=== PATIENT | female | born 1970 | race Caucasian/White ===

== ENCOUNTER 2018-06-28 15:01 | Emergency (ER) | payer MEDICAID, SELFPAY ==
[2018-06-28 15:02] VITALS: BP 169/109; PULSE 93; RESP 18; TEMP 36.6; O2SAT 98; BMI 39.2
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
[2018-06-28 15:27] LABS: Mucous, Urine 0 SEEN /hpf (<or=2+)
[2018-06-28 15:28] LABS: Color, Urine Yellow (Yellow); Glucose, Dipstick Normal (Normal); Ketone-Dipstick Negative (Negative); Leukocyte Esterase-Dipstick 500 /ul (Negative); Nitrite-Dipstick Positive (Negative); Occult Blood-Urine 250 /ul (Negative); Protein-Dipstick Negative (Negative); Urine Bilirubin Dipstick Negative (Negative); Urine Clarity Sl. Cloudy (Clear); Urine Urobilinogen Normal (Normal); Urine pH 6.5 (5.0 - 8.0)
[2018-06-28 15:34] LABS: Bacteria 2+ /hpf (None Seen); Red Blood Cells-Urine 10-25 SEEN /hpf (0-5); Squamous Epithelial Cells - UA 0-5 SEEN /hpf (5-10); White Blood Cells 0-5 SEEN /hpf (0-5)
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
[2018-06-28] MEDS: 0.9% Normal Saline 1,000 ML 1000 ML IV (15:41)
[2018-06-28 15:46] LABS: Absolute Neutrophil Count 8.5 X10^3/uL (2.0-7.7); Basophil# 0.03 X10^3/uL; Basophil% 0.2 % (0-1); Eosinophil# 0.26 X10^3/uL; Eosinophils% 2.1 % (0-5); Hematocrit 37.6 % (37-47); Hemoglobin 12.1 g/dl (12.0-15.0); Lymphocyte % 21.6 % (19-41); Mean Corp Hgb Conc 32.2 g/gl (32-36); Mean Corpuscular Volume 80.9 fL (81-99); Mean Platelet Vol. 9.9 fl (6.2-12.0); Monocyte# 0.99 X10^3/uL; Monocyte% 7.9 % (0-10); Neutrophil # 8.48 X10^3/uL (2.7-7.7); Neutrophil % 67.8 % (47-70); Platelet Count 328 K/mm3 (150-450); RBC Distribution Width CV 15.9 % (11.6-14.6); RBC Distribution Width SD 46.6 fl (35.1-43.9); Red Blood Count 4.65 M/mm3 (4.2-5.4); White Blood Count 12.5 K/mm3 (4.4-11.0)
[2018-06-28 15:47] LABS: POSITIVE COUNT NO; POSITIVE DIFFERENTIAL NO; POSITIVE MORPHOLOGY NO
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
[2018-06-28 16:02] LABS: Anion Gap 7 (5-15); BUN 16 mg/dL (7-18); BUN/Creat Ratio 21.9 RATIO (10-20); Calcium,Total 9.2 mg/dL (8.5-10.1); Chloride 105 mmol/L (98-107); Creatinine, Serum 0.73 mg/dL (0.55-1.02); EST Glomerular Filtration Rate 91 mL/min (>60); Est Glom Filt Rate - Afr Amer 110 mL/min (>60); Estimated Creatinine Clearance 124.81 ml/min; Glucose 108 mg/dL (74-106); Potassium 3.9 mmol/L (3.5-5.1); Sodium Level 138 mmol/L (136-145)
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
[2018-06-28 16:24] LABS: Internal QC Validated? YES +Cl - CLEAR BKGD; Pregnancy, Serum, hCG Quali. NEGATIVE Negative
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
[2018-06-28 17:13] LABS: Chlamydia Trachomatis by PCR Negative (Negative); Neisserai gonorrhoeae by PCR Negative (Negative); Probe Check PASS; Sample Adequacy Control PASS; Specimen Processing Control PASS
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
[2018-06-28 17:24] LABS: HIV - WCH Non-Reactive (Nonreactive)
[2018-06-28 17:34] VITALS: BP 157/84; PULSE 87; PULSE 88; RESP 16; O2SAT 98
[2018-06-28] MEDS: Ceftriaxone 500 MG Vial 250 MG IM (17:41)
[2018-06-28] MEDS: Azithromycin 250 MG Tablet 1000 MG PO (17:41)
[2018-06-28] MEDS: metroNIDAZOLE 500 MG Tablet 2000 MG PO (17:41)
== END 2018-06-28 17:50 | disposition home or self-care (01) ==
LOC: ED 15:26
PROVIDERS: Emergency Provider Emergency Medicine; Family Provider Family Medicine; PCP Family Medicine
DX: T74.21XA Adult sexual abuse, confirmed, initial encounter (principal); J45.909 Unspecified asthma, uncomplicated; E78.00 Pure hypercholesterolemia, unspecified; Z79.51 Long term (current) use of inhaled steroids; Z79.899 Other long term (current) drug therapy
CPT/HCPCS: 74177; 80048; 81001; 84703; 85025; 86703; 87491; 87591; 96361; 96365; 99284; J7030; Q9967; A4216

== ENCOUNTER 2018-07-18 11:23 | Emergency (ER) | payer MEDICAID, SELFPAY ==
[2018-07-18 11:24] VITALS: BP 141/91; PULSE 94; RESP 17; TEMP 36.6; O2SAT 98; BMI 41.4
[2018-07-18 11:26] VITALS: O2SAT 98
--- NOTE | 2018-07-18 11:46 | EKG12_ITS ---
Test Reason : SOB Blood Pressure : / mmHG Vent. Rate : 089 BPM Atrial Rate : 089 BPM P-R Int : 134 ms QRS Dur : 094 ms QT Int : 380 ms P-R-T Axes : 057 011 009 degrees QTc Int : 462 ms Normal sinus rhythm Possible Lateral infarct , age undetermined Inferior infarct , age undetermined Abnormal ECG Confirmed by AMBER HEDRICK, NIDA ([id number]), newspaper editor managing CYNDY PETERS ([id number]) on 07/21/2018 1:17:17 PM Referred By: PACO Confirmed By:NIDA CLARK MD
--- NOTE | 2018-07-18 11:46 | RAD_ITS ---
STUDY: X-RAY CHEST REASON FOR EXAM: Female, 48 years old. Shortness of breath. Cough. Chills. TECHNIQUE: PA and lateral views of the chest. COMPARISON: None. FINDINGS: EKG electrodes are seen. The lungs are clear and expanded. There is no demonstrated pleural abnormality. Normal size heart. Normal mediastinum and malcom. Normal visualized pulmonary arteries. Normal visualized aortic arch and descending thoracic aorta. Normal visualized thoracic spine. Normal visualized ribs, clavicles, and shoulders. There is no demonstrated abnormality of the visualized soft tissue structures of the upper abdomen. RAD/Chest PA and Lateral IMPRESSION: Normal x-ray examination of the chest. Electronically Signed: Thaddeus Jones, at 12:41 EDT , Service support ,
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
[2018-07-18 12:04] VITALS: PULSE 95; RESP 20; O2SAT 99
[2018-07-18] MEDS: Albuterol 2.5 MG/3 ML VIAL.NEB. INHALATION ×2 (12:04→13:13)
[2018-07-18] MEDS: 0.9% Normal Saline 1,000 ML 150 ML IV (12:06)
[2018-07-18] MEDS: MethylPREDNISolone 125 MG/2 ML Vial 80 MG IV (12:06)
[2018-07-18 12:27] LABS: Absolute Lymphocyte Count 3.52 X10^3/ul (0.83-4.51); Absolute Neutrophil Count 6.1 X10^3/uL (2.0-7.7); Basophil# 0.03 X10^3/uL; Basophil% 0.3 % (0-1); Eosinophil# 0.21 X10^3/uL; Hematocrit 36.1 % (37-47); Hemoglobin 11.3 g/dl (12.0-15.0); Lymphocyte # 3.52 X10^3/ul (4.0); Lymphocyte % 33.2 % (19-41); Mean Corp Hgb Conc 31.3 g/gl (32-36); Mean Corpuscular Hgb 25.5 pg (27.0-32.0); Mean Corpuscular Volume 81.3 fL (81-99); Mean Platelet Vol. 10.1 fl (6.2-12.0); Monocyte% 6.6 % (0-10); Neutrophil # 6.07 X10^3/uL (2.7-7.7); Neutrophil % 57.3 % (47-70); Platelet Count 289 K/mm3 (150-450); RBC Distribution Width CV 15.7 % (11.6-14.6); RBC Distribution Width SD 46.8 fl (35.1-43.9); Red Blood Count 4.44 M/mm3 (4.2-5.4); White Blood Count 10.6 K/mm3 (4.4-11.0)
[2018-07-18 12:32] LABS: Internal QC Validated? YES +Cl - CLEAR BKGD; Pregnancy, Serum, hCG Quali. NEGATIVE Negative
[2018-07-18 12:33] LABS: Anion Gap 8 (5-15); BUN 19 mg/dL (7-18); BUN/Creat Ratio 20.8 RATIO (10-20); Calcium,Total 8.3 mg/dL (8.5-10.1); Chloride 109 mmol/L (98-107); Creatinine, Serum 0.91 mg/dL (0.55-1.02); EST Glomerular Filtration Rate 71 mL/min (>60); Est Glom Filt Rate - Afr Amer 85 mL/min (>60); Estimated Creatinine Clearance 105.97 ml/min; Glucose 129 mg/dL (74-106); Potassium 3.2 mmol/L (3.5-5.1); Sodium Level 141 mmol/L (136-145)
[2018-07-18 12:34] LABS: POSITIVE COUNT NO; POSITIVE DIFFERENTIAL NO; POSITIVE MORPHOLOGY NO
[2018-07-18 13:15] VITALS: PULSE 100; RESP 16; O2SAT 100
[2018-07-18 13:24] VITALS: BP 111/79; PULSE 116; RESP 17; O2SAT 100
[2018-07-18 14:21] VITALS: BP 146/85; PULSE 111; RESP 20; O2SAT 99
== END 2018-07-18 14:22 | disposition home or self-care (01) ==
PROVIDERS: Emergency Provider Emergency Medicine; Family Provider Family Medicine; PCP Family Medicine
DX: J40 Bronchitis, not specified as acute or chronic (principal); R56.9 Unspecified convulsions; F41.9 Anxiety disorder, unspecified; F32.9 Major depressive disorder, single episode, unspecified; Z79.51 Long term (current) use of inhaled steroids; Z79.899 Other long term (current) drug therapy
CPT/HCPCS: 71046; 80048; 84703; 85025; 93005; 94640; 96361; 96374; 99285; A4216

== ENCOUNTER 2022-05-25 15:52 | Emergency (ER) | payer MEDICAID, SELFPAY ==
[2022-05-25 15:54] VITALS: BP 152/86; PULSE 81; RESP 23; TEMP 36.7; O2SAT 98; BMI 40.2
--- NOTE | 2022-05-25 16:39 | EDS_ITS ---
HPI History of Present Illness Chief Complaint: Chest Pain Informant: patient Onset/Context/Timing Onset: Today Activity at onset: sudden Timing: Continuous Quality: Positive for Sharp Location: Substernal Worsened By: Nothing Relieved By: Nothing Associated Symptoms: Positive for Dyspnea, Cough and Palpitations; Negative for Nausea, Vomiting, Diaphoresis, Fever, Lightheadedness or Acid Reflux Narrative Narrative: Patient presents with chest pain that began today. Patient states the pain began rather suddenly. Patient states it has been constant. Patient states it is over the substernal area. Patient describes the pain as stabbing. Patient states nothing makes it better nothing makes it worse. Patient does admit to a cough and some shortness of breath. Patient also admits to some palpitations. Patient denies any diaphoresis. Patient denies any nausea or vomiting. Patient denies any lightheadedness or dizziness. Patient denies any fevers or chills. CVD Risk Factors: Positive for Hypertension, Diabetes, Hypercholesterolemia and Family History 1' </=55; Negative for Smoking PE Risk Factors: Negative for Recent Travel/Surgery, Recent Immobilization, Prior DVT or PE or Cancer [facility] Medical History (Updated 05/25/22 @ 18:[address] Rob Perdomo, DO) Asthma Diabetes Hypertension Home Medications fluticasone propionate 50 mcg/actuation nasal spray,suspension 1 spray DAILY allergies 06/28/18 [History Last Taken 07/17/18] simvastatin 20 mg tablet 20 mg PO QHS cholesterol 06/28/18 [History Last Taken 07/17/18] albuterol sulfate 90 mcg/actuation aerosol inhaler (Proventil HFA) 2 puff inhalation Q4H PRN PRN Sob &/Or Wheezing 07/18/18 [History Last Taken 07/18/18] azithromycin 250 mg tablet 250 mg PO DAILY ##4 07/18/18 [Rx Last Taken Unknown] xxlhsddeydmziyg-yygzckhjxdkdbmw-VS 2 mg-30 mg-10 mg/5 mL oral syrup (Bromfed DM) 10 ml PO Q4H PRN PRN Cough 07/18/18 [History Last Taken 07/17/18] fluoxetine 20 mg capsule 20 mg PO DAILY depression 07/18/18 [History Last Taken 07/17/18] prednisone 20 mg tablet (Deltasone) 40 mg PO DAILY #10 tabs 07/18/18 [Rx Last Taken Unknown] metformin 500 mg tablet 500 mg PO BID #20 tabs 05/25/22 [Rx Last Taken Unknown] Allergy/AdvReac Type Severity Reaction Status Date / Time Penicillins AdvReac Vomiting Verified 05/25/22 15:57 Surgical History (Updated 05/25/22 @ 16:[address] Rob Perdomo, DO) Hx of breast surgery Hx of tubal ligation Social History Smoking Status: Never smoker ROS ROS ED Constitutional Constitutional ED: Denies chills or fever(s) Eyes Eyes: Denies blurry vision or change in vision ENT ENT ED: Denies rhinorrhea or sore throat Cardiovascular Cardiovascular: Reports chest pain and palpitations Respiratory/Chest Respiratory/Chest: Reports dyspnea; Denies cough Gastrointestinal Gastrointestinal: Denies abdominal pain, nausea or vomiting Genitourinary Genitourinary ED: Denies dysuria or hematuria Musculoskeletal Musculoskeletal: Reports back pain; Denies neck pain Integumentary Denies abscess or rash Neurologic Neurologic: Denies headache(s) or weakness Allergic/Immunologic Allergic/Immunologic ED: Denies mouth swelling or urticaria EXAM Physical Exam Const Vital Signs: 05/25/22 15:54 05/25/22 15:57 05/25/22 16:52 Temperature 98.1 F Temperature Source Oral Pulse Rate 81 Respiratory Rate 23 H Respiratory Effort Normal Short of Breath Blood Pressure 152/86 H Blood Pressure Mean 108 Pulse Ox 98 Oxygen Delivery Method Room Air Room Air 05/25/22 18:09 Temperature Temperature Source Pulse Rate 86 Respiratory Rate 24 H Respiratory Effort Blood Pressure 144/85 H Blood Pressure Mean 104 Pulse Ox 99 Oxygen Delivery Method Room Air Positive well nourished, well developed and obese General Appearance ED: well developed and NAD Nutritional Appearance: obese HEENT normocephalic and atraumatic Eyes PERRL and EOMs intact bilaterally Neck supple and no JVD Chest Wall Chest: tenderness sternum Resp normal respiratory effort and clear to auscultation bilaterally Effort and Inspection: Negative for respiratory distress Cardio regular rate, regular rhythm and no murmurs GI normal to inspection, nondistended, normoactive bowel sounds, soft to palpation, non-tender and non-distended Extremity normal to inspection General Extremety ED: Negative for edema or tenderness General Extremity: Negative for edema Neuro oriented x3, CN's II-XII intact bilaterally and no sensory deficits noted Sensorium / Orientation: awake and alert Motor Exam: strength 5/5 throughout Psych mental status grossly normal Heart Score History: Slightly/Non-Suspicious ECG: Nonspecific Repolarization Age: >45 - <65 years Risk Factors: >/= 3 Risk Factors or History of CAD Troponin: </= Normal Limit Score: 4 MDM MDM MDM Narrative Medical decision making narrative: Differential diagnosis includes cardiac ischemia, cardiac dysrhythmia, pneumonia, pneumothorax, electrolyte abnormality, musculoskeletal pain, and anxiety. EKG will be obtained to assess for cardiac dysrhythmia and cardiac ischemia. Chest x-ray will be obtained to assess for pneumonia and pneumothorax. CBC will be obtained to assess for anemia and leukocytosis. Basic metabolic profile will be obtained to assess for electrolyte abnormality and renal function. High-sensitivity troponin will be obtained to assess for cardiac ischemia. Patient has a Wells score of 0. I do not think this is from a pulmonary embolism. Lab Data Attestation: I reviewed the patient's lab results. Lab results narrative: CBC was reviewed. There is a mild anemia with a hemoglobin of 9.2 hematocrit 31.4. Basic metabolic profile was reviewed. There is a mild hypokalemia of 3.2. Glucose was 137. High-sensitivity troponin was reviewed and was normal at 5. Labs: Laboratory Results - last 24 hr 05/25/22 05/25/22 16:00 16:00 WBC 10.8 RBC 4.39 Hgb 9.2 L Hct 31.4 L MCV 71.5 L MCH 21.0 L MCHC 29.3 L RDW Std Deviation 48.7 H RDW Coeff of Yohannes 19.2 H Plt Count 329 MPV 10.2 Immature Gran % (Auto) 0.400 Neut % (Auto) 64.5 Lymph % (Auto) 25.5 Pacific % (Auto) 8.1 Eos % (Auto) 1.0 Baso % (Auto) 0.5 Absolute Neuts (auto) 7.0 Absolute Lymphs (auto) 2.75 Nucleated RBC % 0 Sodium 139 Potassium 3.2 L Chloride 106 Carbon Dioxide 28.0 Anion Gap 5 BUN 13 Creatinine 0.87 Estim Creat Clear Calc 104.59 Est GFR (MDRD) Af Amer 89 Est GFR (MDRD) Non-Af 73 BUN/Creatinine Ratio 14.9 Glucose 137 H Calcium 9.0 Troponin I High Sens 5 Radiography Chest X-Ray - ED: 1 View, Read by ED Physician, Read by Radiologist and No Acute Disease Diagnostic Testing: Clinical Impression(s) from Imaging Studies Chest X-Ray 05/25/22 16:50 IMPRESSION: No radiographic evidence of acute cardiopulmonary disease. Electronically Signed: Stu Goldstein at 17:20 EDT Reading Location ID and State: [facility] / [place] Tel [phone], Service support , Portable 1 view chest x-ray was obtained. On my independent interpretation, lung reza are clear. There is normal cardiac silhouette. Bony thorax is normal. There is no acute process noted. Radiologist also interpreted the x- ray and agrees. EKG Initial EKG: Attestation: I personally reviewed and interpreted this EKG as follows: Interpretation: Sinus Rhythm (79) and Non-Specific ST Changes Comments: EKG was obtained. On my independent interpretation, it showed a normal sinus rhythm with a rate of 79. SC interval, QRS interval, and QTc intervals were all normal. [place] was normal. There are nonspecific ST-T wave changes. Prior EKG tracings: available for review Prior: Unchanged (07/18/2018) Treatment and Re-Evaluation :: Patient was given aspirin. Patient was given a dose of potassium here. Patient was advised of her findings. Patient was given prescription for metformin. Patient was instructed to follow-up with a primary care physician in 5 to 7 days for further evaluation. Patient understands and is agreeable with the plan. All questions were answered. Discharge Plan Triage Chief Complaint: Chest Pain ED Provider: Rob Perdomo Dx/Rx/DC Orders Clinical Impression: Chest pain, Diabetes mellitus, Morbid obesity with BMI of 40.0-44.9, adult Instructions: ED Chest Pain, Uncertain Cause Prescriptions: New metformin 500 mg tablet 500 mg PO BID Qty: 20 0RF No Action simvastatin 20 tablet 20 mg PO QHS fluticasone propionate 1 SPRAY spray,suspension 1 spray NASAL DAILY albuterol sulfate [Proventil HFA] 6.7 GM HFA aerosol inhaler 2 puff inhalation Q4H PRN PRN (Reason: Sob &/Or Wheezing) usdnkeiishoxcuj-rmmqieuid-HJ [Bromfed DM] 118 ML syrup 10 ml PO Q4H PRN PRN (Reason: Cough) fluoxetine 20 MG capsule 20 mg PO DAILY Label Comments: TAKE 1 CAPSULE BY MOUTH DAILY azithromycin 250 MG tablet 250 mg PO DAILY Qty: 4 0RF prednisone [Deltasone] 20 MG tablet 40 mg PO DAILY Qty: 10 0RF Rx Instructions: With food Stand Alone Forms: Work / School Excuse Primary Care Provider: Care Physician,No Primary Referrals: Malgorzata Oconnor [Non-Staff] - 5-7 Days Care Physician,No Primary [Primary Care Provider] - Disposition Disposition: Home, Self Care
--- NOTE | 2022-05-25 16:46 | EKG12_ITS ---
Test Reason : CP Blood Pressure : / mmHG Vent. Rate : 079 BPM Atrial Rate : 079 BPM P-R Int : 116 ms QRS Dur : 086 ms QT Int : 372 ms P-R-T Axes : 040 -13 003 degrees QTc Int : 426 ms Normal sinus rhythm Minimal voltage criteria for LVH, may be normal variant ( R in aVL ) Inferior infarct , age undetermined Confirmed by LEONIDAS HEDRICK, ALEC ([id number]), state editor CYNDY PETERS ([id number]) on 05/27/2022 9:54:31 AM Referred By: MAXINE Confirmed By:ALEC LAUREN MD
--- NOTE | 2022-05-25 16:50 | RAD_ITS ---
INDICATION: chest pain EXAMINATION/TECHNIQUE: X-RAY - XR Chest 1 View COMPARISON: None. FINDINGS: LINES/DEVICES: None. LUNGS: No consolidation, edema or effusion. No pneumothorax. MEDIASTINUM AND CARDIOVASCULAR STRUCTURES: Cardiac silhouette not enlarged. Central airways and mediastinal contour are unremarkable. BONES AND SOFT TISSUES: Unremarkable. RAD/Chest 1 View (Portable) IMPRESSION: No radiographic evidence of acute cardiopulmonary disease. Electronically Signed: Stu Goldstein DO at 17:20 EDT ,
[2022-05-25 16:56] LABS: Absolute Lymphocyte Count 2.75 X10^3/uL (0.83-4.51); Basophil# 0.05 X10^3/uL; Basophil% 0.5 % (0-1); Eosinophil# 0.11 X10^3/uL; Hematocrit 31.4 % (37-47); Hemoglobin 9.2 g/dL (12.0-15.0); Lymphocyte # 2.75 X10^3/ul (0.83-4.51); Lymphocyte % 25.5 % (19-41); Mean Corp Hgb Conc 29.3 g/dL (32-36); Mean Corpuscular Volume 71.5 fL (81-99); Mean Platelet Vol. 10.2 fl (6.2-12.0); Monocyte# 0.88 X10^3/uL; Monocyte% 8.1 % (0-10); NRBC Flagged by Analyzer 0 % (0-5); Neutrophil # 6.97 X10^3/uL (2.7-7.7); Neutrophil % 64.5 % (47-70); Platelet Count 329 K/mm3 (150-450); RBC Distribution Width CV 19.2 % (11.6-14.6); RBC Distribution Width SD 48.7 fl (35.1-43.9); Red Blood Count 4.39 M/mm3 (4.2-5.4); White Blood Count 10.8 K/mm3 (4.4-11.0)
[2022-05-25] MEDS: Aspirin 81 MG TAB.CHEW 324 MG PO (16:56)
[2022-05-25 17:17] LABS: Anion Gap 5 (5-15); BUN 13 mg/dL (7-18); BUN/Creat Ratio 14.9 RATIO (10-20); Chloride 106 mmol/L (98-107); Creatinine, Serum 0.87 mg/dL (0.55-1.02); EST Glomerular Filtration Rate 73 mL/min (>60); Est Glom Filt Rate - Afr Amer 89 mL/min (>60); Estimated Creatinine Clearance 104.59 ml/min; Glucose 137 mg/dL (74-106); Potassium 3.2 mmol/L (3.5-5.1); Sodium Level 139 mmol/L (136-145); Troponin-I HS 5 pg/mL (3.0-54.0)
[2022-05-25 18:09] VITALS: BP 144/85; PULSE 86; RESP 24; O2SAT 99
[2022-05-25 18:45] VITALS: BP 135/85; PULSE 78; RESP 25; O2SAT 99
[2022-05-25] MEDS: Potassium Chloride Oral Tablet 20 MEQ 40 MEQ PO (18:46)
[2022-05-25 19:12] VITALS: BP 117/84; PULSE 76; RESP 22; O2SAT 99
== END 2022-05-25 19:13 | disposition home or self-care (01) ==
PROVIDERS: Emergency Provider Emergency Medicine; Visit Provider Emergency Medicine
DX: R07.9 Chest pain, unspecified (principal); E66.01 Morbid (severe) obesity due to excess calories; Z68.41 Body mass index [BMI] 40.0-44.9, adult; E11.9 Type 2 diabetes mellitus without complications; R00.2 Palpitations; I10 Essential (primary) hypertension; R06.02 Shortness of breath; Z79.84 Long term (current) use of oral hypoglycemic drugs
CPT/HCPCS: 71045; 80048; 84484; 85025; 93005; 99285; A4216

== ENCOUNTER 2022-07-06 12:18 | Emergency (ER) | payer MEDICAID, SELFPAY ==
[2022-07-06 12:18] VITALS: BP 154/90; PULSE 91; RESP 16; TEMP 35.7; O2SAT 99; BMI 37.0
--- NOTE | 2022-07-06 13:05 | CM.ED ---
Social Work Note Referral Source: case find Referral Reason: no PCP SW met with patient and introduced herself and role as [facility] [employer]. Patient lying on hospital bed and agreeable to speak with SW. SW inquired about patient's insurance and current PCP. Patient verified insurance and reports no current PCP. SW provided patient with a list of local PCPs in network with patient's insurance and accepting new patients as well as Where and When to go, focusing on nurse and transportation lines related to patient's insurance. Patient was receptive towards list and voiced no other needs. SW remains available if needs arise. Nilsa Li PERMIT SPECIALIST, [place]
--- NOTE | 2022-07-06 13:27 | CT_ITS ---
STUDY: CT BRAIN WITHOUT CONTRAST REASON FOR EXAM: Female, 52 years old. Headaches and dizziness following a recent head injury. RADIATION DOSAGE (If Supplied By Facility): CTDIvol = ( 44.99 ) mGy, DLP = ( 745.49 ) mGycm TECHNIQUE: Transaxial CT imaging of the brain was performed without administration of intravenous contrast material. Individualized dose optimization techniques were used for this CT. COMPARISON: No relevant priors. FINDINGS: Normal soft tissue structures. There is hyperostosis frontalis internus. Normal size ventricles and extra-axial spaces for the patient''s age. Normal white matter tracts of the cerebral hemispheres. Normal basal ganglia and thalami. Normal brainstem. Normal cerebellum. There is no intracranial hemorrhage. There are no findings of an acute ischemic infarction. Normal visualized paranasal sinuses. CT/Brain/Head without Contrast IMPRESSION: Normal unenhanced CT scan of the brain. Electronically Signed: Thaddeus Jones MD at 14:00 EDT ,
[2022-07-06 14:18] VITALS: RESP 16
--- NOTE | 2022-07-06 15:36 | ED.RN ---
PT STATES WHEN WILL THE DOCTOR BE BACK IN? I HAVE A BUS I NEED TO CATCH. THIS RN MAKES DR. KIMBLE AWARE THAT PT WANTING TO LEAVE. DR. KIMBLE STATES THAT SHE IS ON HIS LIST TO RE-EVALUATE. THIS RN INFORMS PT THAT DR WILL BE IN SOON TO RE-EVALUATE HER AND HE IS AWARE THAT SHE NEEDS TO CATCH A BUS HOME. THIS RN EXPLAINS THAT UNFORTUNATELY THE ER IS BUSY TODAY AND IT IS TAKING A LITTLE BIT LONGER THAN USUAL. PT STATES MY BUS WILL BE HERE IN THE NEXT 5 MINUTES AND IT IS THE LAST ONE. I WOULD LIKE TO LEAVE NOW. THIS RN STATES IF YOU WOULD LIKE TO LEAVE, I CANNOT FORCE YOU TO STAY HERE. YOU ARE MORE THAN WELCOME TO GO IF YOU HAVE TO. PT PROCEEDS TO LEAVE AT THIS TIME WITHOUT DC ORDER OR INSTRUCTIONS
--- NOTE | 2022-07-06 15:49 | EX.ED.VIS.HA ---
HPI History of Present Illness Chief Complaint: Headache Onset/Context/Timing Onset: Weeks (1) Context: Sudden Timing: Continuous Quality -Headache: Positive for Throbbing Location: Right frontal scalp Worsened by: Nothing Relieved by: Nothing Associated Symptoms/Injury Associated Symptoms: Negative for Fever, Nausea, Vomiting, Sore Throat, Sinus Pressure, Numbness, Tingling, Preceding Aura, Visual Changes, Blurred Vision, Photophobia or Visual Loss Injury - ARANDA: Positive for Direct Trauma Narrative Narrative: Patient presents with a headache that has been constant for the past week. Patient states the pain is over the right frontal area. Patient describes it as throbbing. Patient states nothing makes it worse and nothing makes it better. Patient states she fell 1 week ago. Patient hit the right frontal area of her head when she fell. Patient denies any loss of consciousness. Patient denies any nausea or vomiting. Patient denies any visual changes. Patient does admit to some pain that goes into her neck but also states she has chronic pain in her neck and back. [facility] Medical History Asthma Diabetes Hypertension Home Medications fluticasone propionate 50 mcg/actuation nasal spray,suspension 1 spray DAILY allergies 06/28/18 [History Last Taken 07/17/18] simvastatin 20 mg tablet 20 mg PO QHS cholesterol 06/28/18 [History Last Taken 07/17/18] albuterol sulfate 90 mcg/actuation aerosol inhaler (Proventil HFA) 2 puff inhalation Q4H PRN PRN Sob &/Or Wheezing 07/18/18 [History Last Taken 07/18/18] azithromycin 250 mg tablet 250 mg PO DAILY ##4 07/18/18 [Rx Last Taken Unknown] ivqeallxogimtoq-hcsbasebxnwylbt-DV 2 mg-30 mg-10 mg/5 mL oral syrup (Bromfed DM) 10 ml PO Q4H PRN PRN Cough 07/18/18 [History Last Taken 07/17/18] fluoxetine 20 mg capsule 20 mg PO DAILY depression 07/18/18 [History Last Taken 07/17/18] prednisone 20 mg tablet (Deltasone) 40 mg PO DAILY #10 tabs 07/18/18 [Rx Last Taken Unknown] metformin 500 mg tablet 500 mg PO BID #20 tabs 05/25/22 [Rx Last Taken Unknown] Allergy/AdvReac Type Severity Reaction Status Date / Time Penicillins AdvReac Vomiting Verified 07/06/22 12:20 Surgical History Hx of breast surgery Hx of tubal ligation Social History Smoking Status: Never smoker ROS ROS ED Constitutional Constitutional ED: Denies chills or fever(s) Eyes Eyes: Denies blurry vision or change in vision ENT ENT ED: Denies rhinorrhea or sore throat Cardiovascular Cardiovascular: Denies chest pain or palpitations Respiratory/Chest Respiratory/Chest: Reports cough; Denies dyspnea Gastrointestinal Gastrointestinal: Denies nausea or vomiting Genitourinary Genitourinary ED: Denies dysuria or hematuria Musculoskeletal Musculoskeletal: Reports back pain and neck pain Integumentary Denies abscess or rash Neurologic Neurologic: Reports headache(s); Denies weakness Allergic/Immunologic Allergic/Immunologic ED: Denies mouth swelling or urticaria EXAM Physical Exam Const Vital Signs: 07/06/22 12:18 07/06/22 12:39 07/06/22 14:18 Temperature 96.3 F L Temperature Source Temporal Pulse Rate 91 Respiratory Rate 16 16 Respiratory Effort Normal Non-Labored Respiratory Pattern Normal Blood Pressure 154/90 H Blood Pressure Mean 111 Pulse Ox 99 Oxygen Delivery Method Room Air Positive well nourished and well developed General Appearance ED: well developed HEENT Reports moist mucous membranes HEENT Narrative: There is tenderness over the right frontal scalp. There is no bony crepitance or step-off. There is no edema or ecchymosis. There is no hematoma noted. tenderness Neck supple and no JVD Resp normal respiratory effort and clear to auscultation bilaterally Cardio regular rate and regular rhythm GI normal to inspection, nondistended, normoactive bowel sounds and non-tender Palpation: soft Extremity normal to inspection General Extremety ED: Negative for edema or tenderness General Extremity: Negative for edema Neuro oriented x3, CN's II-XII intact bilaterally and no sensory deficits noted Sensorium / Orientation: alert Motor Exam: strength 5/5 throughout Psych mental status grossly normal Skin no rashes or lesions noted MDM MDM MDM Narrative Medical decision making narrative: Differential diagnosis includes concussion, closed head injury, and intracranial bleeding. CT scan of the brain will be obtained to assess for intracranial bleeding. Radiography Diagnostic Testing: Clinical Impression(s) from Imaging Studies Brain CT 07/06/22 13:27 IMPRESSION: Normal unenhanced CT scan of the brain. Electronically Signed: Thaddeus Jones MD at 14:00 EDT , CT scan of the brain was obtained. There is no acute intracranial abnormality. This was interpreted by the radiologist and was also independently reviewed by myself. Treatment and Re-Evaluation Narrative: Patient did not want to wait for her results. Patient left prior to receiving her results or any discharge instructions. Patient was instructed to return if worse in any way. Patient understood and was agreeable with the plan. Discharge Plan Triage Chief Complaint: Headache ED Provider: Rob Perdomo Dx/Rx/DC Orders Clinical Impression: Concussion Instructions: ED Concussion Prescriptions: No Action simvastatin 20 tablet 20 mg PO QHS fluticasone propionate 1 SPRAY spray,suspension 1 spray NASAL DAILY albuterol sulfate [Proventil HFA] 6.7 GM HFA aerosol inhaler 2 puff inhalation Q4H PRN PRN (Reason: Sob &/Or Wheezing) rvypypmhupjgfor-tkwaumfxs-DL [Bromfed DM] 118 ML syrup 10 ml PO Q4H PRN PRN (Reason: Cough) fluoxetine 20 MG capsule 20 mg PO DAILY Label Comments: TAKE 1 CAPSULE BY MOUTH DAILY azithromycin 250 MG tablet 250 mg PO DAILY Qty: 4 0RF prednisone [Deltasone] 20 MG tablet 40 mg PO DAILY Qty: 10 0RF Rx Instructions: With food metformin 500 mg tablet 500 mg PO BID Qty: 20 0RF Primary Care Provider: Care Physician,No Primary Referrals: Care Physician,No Primary [Primary Care Provider] - Disposition Disposition: Home, Self Care Discharge Date/Time: 07/06/22 15:42
== END 2022-07-06 15:42 | disposition home or self-care (01) ==
PROVIDERS: Emergency Provider Emergency Medicine; Visit Provider Emergency Medicine
DX: S06.0X0A Concussion without loss of consciousness, initial encounter (principal); E11.9 Type 2 diabetes mellitus without complications; I10 Essential (primary) hypertension; G89.29 Other chronic pain; M54.9 Dorsalgia, unspecified; X58.XXXA Exposure to other specified factors, initial encounter
CPT/HCPCS: 70450; 99282

== ENCOUNTER 2022-08-24 10:30 | Emergency (ER) | payer MEDICAID, SELFPAY ==
[2022-08-24 10:30] VITALS: BP 144/86; PULSE 78; RESP 18; TEMP 35.9; O2SAT 98; BMI 39.2
--- NOTE | 2022-08-24 10:45 | ED.VIS.GI ---
HPI HPI - GI History of Present Illness Chief Complaint: Nausea/Vomiting Informant: patient Abdominal Pain/Flank Pain Onset: Today Context: Gradual Onset Timing: Intermittent Quality: Cramping Location: Diffuse Current Severity: Mild Maximum Severity: Mild Nausea/Vomiting/Emesis GI Symptom: Positive for Nausea and Vomiting Onset: Today Severity: Mild Diarrhea/Melena/Hematochezia GI Symptom: Negative for Diarrhea, Melena or Hematochezia Associated Symptoms Associated Symptoms: Negative for Dysuria, Frequency or Hematuria Narrative Narrative: 52-year-old female history of diabetes, hypertension and prior appendectomy. States she had nausea and vomiting earlier this morning around 1 AM. Some diffuse abdominal cramping. Vomiting is resolved. No diarrhea. No dysuria. No fever. She is a known diabetic has not checked her blood sugar for a couple of days the last time she did it was around 160. Prior similar symptoms: Yes Recent Illness/Hospitalization: No PFSH PFSH Medical History Asthma Diabetes Hypertension Home Medications simvastatin 20 mg tablet 20 mg PO QHS cholesterol 06/28/18 [History Last Taken 07/17/18] albuterol sulfate 90 mcg/actuation aerosol inhaler (Proventil HFA) 2 puff inhalation Q4H PRN PRN Sob &/Or Wheezing 07/18/18 [History Last Taken 07/18/18] fluoxetine 20 mg capsule 20 mg PO DAILY depression 07/18/18 [History Last Taken 07/17/18] metformin 500 mg tablet 500 mg PO BID #20 tabs 05/25/22 [Rx Last Taken Unknown] ondansetron 4 mg disintegrating tablet 4 mg PO Q8H PRN PRN Nausea #7 tabs 08/24/22 [Rx Last Taken Unknown] Allergy/AdvReac Type Severity Reaction Status Date / Time Penicillins AdvReac Vomiting Verified 08/24/22 10:39 Surgical History Hx of breast surgery Hx of tubal ligation Social History Smoking Status: Never smoker ROS ROS ED ROS Narrative Abdominal cramping. Nausea and vomiting. Review of Systems ROS Unobtainable: Denies due to encephalopathy Constitutional Constitutional ED: Denies chills or fever(s) ENT ENT ED: Denies ear pain Cardiovascular Cardiovascular: Denies chest pain Respiratory/Chest Respiratory/Chest: Denies cough Gastrointestinal Gastrointestinal: Reports abdominal pain, nausea and vomiting; Denies constipation, diarrhea or melena Genitourinary Genitourinary ED: Denies dysuria or hematuria Musculoskeletal Musculoskeletal: Denies arthralgias Integumentary Denies abscess Neurologic Neurologic: Denies headache(s) Psychiatric Psychiatric: Denies anxiety Endocrine Endocrinology: Denies polydipsia Hematologic/Lymphatic Hematologic/Lymphatic: Denies easy bleeding Allergic/Immunologic Allergic/Immunologic ED: Denies mouth swelling or tongue swelling EXAM Physical Exam Narrative Exam Narrative: Well-appearing 52-year-old female. Vital signs stable afebrile. Does not look septic toxic or in distress. H EENT exam mild dry mucous membranes. Otherwise unremarkable. Pupils round reactive light. No facial droop. Neck nontender. No lymphadenopathy. Lungs clear to auscultation bilateral. Heart regular rhythm no murmur. Abdomen soft nondistended normal bowel sounds no peritoneal signs. Minimal epigastric discomfort. No hernia or mass. No signs of obstruction. No right upper or right lower quadrant tenderness. Back nontender. Moving all 4 extremities. Nontender. No significant edema. Neurologically she is awake and alert. Answering questions following commands. No motor deficits. Const Vital Signs: 08/24/22 10:30 08/24/22 11:00 Temperature 96.7 F L Temperature Source Temporal Pulse Rate 78 72 Respiratory Rate 18 16 Blood Pressure 144/86 H 151/91 H Blood Pressure Mean 105 111 Pulse Ox 98 96 Oxygen Delivery Method Room Air Room Air Positive well nourished, well developed and obese; Negative for cachectic, contractures or unkempt General Appearance ED: well developed and NAD; Negative for unkempt, cachectic, contractures or pallor Nutritional Appearance: obese; Negative for cachectic HEENT Reports dry mucous membranes normocephalic and atraumatic; Negative for trauma or tenderness Mouth ED: Yes dry mucous membranes Mouth: dry mucous membranes Eyes PERRL and EOMs intact bilaterally General Eye ED: Negative for pale conjunctiva or scleral icterus Neck no lymphadenopathy, supple and no JVD General: Negative for tenderness Carotids: Negative for other Lymph Lymphatic: Negative for other Resp normal respiratory effort and clear to auscultation bilaterally Effort and Inspection: Negative for respiratory distress Auscultation: Negative for rales, rhonchi or wheezes Cardio regular rate, regular rhythm, S1 normal heart sound, S2 normal heart sound and no murmurs Rate: Negative for bradycardia or tachycardic Rhythm: Negative for abnormal rhythm GI non-distended and no masses; Negative for non-tender GI Narrative: Very minor epigastric tenderness. Inspection: Negative for abdominal distention Auscultation: normoactive bowel sounds Palpation: soft and tender; Negative for guarding, rigid, hepatomegaly, splenomegaly, hernia, mass, pulsatile mass or rebound tenderness present Back/Spine no CVA tenderness General Back: Negative for CVA tenderness Cervical Spine: Negative for cervical spine tenderness Thoracic Spine / Upper Back: Negative for thoracic spinal tenderness Lumbar Spine / Lower Back: Negative for lumbar spinal tenderness Coccyx: Negative for other Extremity full ROM General Extremety ED: Negative for edema or tenderness General Extremity: Negative for edema Neuro CN's II-XII intact bilaterally and moves all extremities Sensorium / Orientation: alert, oriented to person, oriented to place and oriented to time; Negative for orientation impaired, confused, lethargic or stuporous Motor Exam: strength 5/5 throughout Psych mental status grossly normal and thought process normal Appearance: Negative for unkempt Attitude: No agitated Mood & Affect: Negative for depressed, anxious or tearful Skin no wounds General Skin Exam: Negative for jaundice or pallor Lesions: no lesions Rashes: no rashes Trauma: Negative for abrasion Nails: Negative for discolored MDM MDM MDM Narrative Medical decision making narrative: 52-year-old with nausea and vomiting. Exam benign. She is diabetic she is complaining some mild abdominal discomfort but has a very benign abdominal exam. I do not think she needs imaging. She will get IV fluids and screening labs. Repeat exam at 11:19 AM patient doing well. Abdomen benign. Nontender. She and I went over all of her test results. She is comfortable being discharged home. She requested a work excuse. I will send a prescription of Zofran to her [facility] pharmacy. History & Record Review Discussion w/independent historian: Patient Additional record(s) reviewed:: Prior inpatient record, Prior outpatient record, Prior ED visit and Prior labs Lab Data Attestation: I reviewed the patient's lab results. Lab results narrative: CBC shows white count 8.4. H&H 10.4 and 35.3. Patient has a baseline anemia this is along her baseline or even improved. Platelets 328. Chemistries show a gap of 7. Normal BUN and creatinine. Liver enzymes unremarkable. Glucose 120. Lipase normal at 25. Labs: Laboratory Results - last 24 hr 08/24/22 08/24/22 10:50 10:50 WBC 8.4 RBC 4.73 Hgb 10.4 L Hct 35.3 L MCV 74.6 L MCH 22.0 L MCHC 29.5 L RDW Std Deviation 50.8 H RDW Coeff of Yohannes 18.9 H Plt Count 328 MPV 10.0 Immature Gran % (Auto) 0.600 Neut % (Auto) 58.5 Lymph % (Auto) 30.0 Wood % (Auto) 8.0 Eos % (Auto) 2.4 Baso % (Auto) 0.5 Absolute Neuts (auto) 4.9 Absolute Lymphs (auto) 2.52 Nucleated RBC % 0 Sodium 138 Potassium 3.5 Chloride 106 Carbon Dioxide 25.0 Anion Gap 7 BUN 18 Creatinine 0.85 Estim Creat Clear Calc 102.62 Est GFR (MDRD) Af Amer 91 Est GFR (MDRD) Non-Af 75 BUN/Creatinine Ratio 21.2 H Glucose 120 H Calcium 8.9 Total Bilirubin 0.30 AST 10 L ALT 15 Alkaline Phosphatase 92 Total Protein 7.8 Albumin 3.3 Globulin 4.5 H Albumin/Globulin Ratio 0.7 L Lipase 25 Discharge Plan Triage Chief Complaint: Nausea/Vomiting ED Provider: Jaden Almeida Dx/Rx/DC Orders Clinical Impression: Nausea & vomiting, History of diabetes mellitus, History of hypertension Instructions: ED Vomiting (Adult) Prescriptions: New ondansetron 4 mg tablet,disintegrating 4 mg PO Q8H PRN PRN (Reason: Nausea) Qty: 7 0RF No Action simvastatin 20 tablet 20 mg PO QHS albuterol sulfate [Proventil HFA] 6.7 GM HFA aerosol inhaler 2 puff inhalation Q4H PRN PRN (Reason: Sob &/Or Wheezing) fluoxetine 20 MG capsule 20 mg PO DAILY Label Comments: TAKE 1 CAPSULE BY MOUTH DAILY metformin 500 mg tablet 500 mg PO BID Qty: 20 0RF Primary Care Provider: Care Physician,No Primary Referrals: Negrito Hummel MD [Med Staff - Active Staff] - As Needed Care Physician,No Primary [Primary Care Provider] - Activity Restrictions/Additional Instructions: Your labs look good today. Zofran as needed for nausea which you may swallow or let it dissolve under your tongue. Follow-up with your primary care provider if you do not have one I referred you to a doctor locally. Plenty of fluids and rest. Return if feeling worse. Disposition Disposition: Home, Self Care
[2022-08-24] MEDS: 0.9% Normal Saline 1,000 ML 1000 ML IV (10:56)
[2022-08-24 10:57] LABS: Absolute Lymphocyte Count 2.52 X10^3/uL (0.83-4.51); Absolute Neutrophil Count 4.9 X10^3/uL (2.0-7.7); Basophil# 0.04 X10^3/uL; Basophil% 0.5 % (0-1); Eosinophils% 2.4 % (0-5); Hematocrit 35.3 % (37-47); Hemoglobin 10.4 g/dL (12.0-15.0); Lymphocyte # 2.52 X10^3/ul (0.83-4.51); Mean Corp Hgb Conc 29.5 g/dL (32-36); Mean Corpuscular Volume 74.6 fL (81-99); Monocyte# 0.67 X10^3/uL; NRBC Flagged by Analyzer 0 % (0-5); Neutrophil # 4.93 X10^3/uL (2.7-7.7); Neutrophil % 58.5 % (47-70); Platelet Count 328 K/mm3 (150-450); RBC Distribution Width CV 18.9 % (11.6-14.6); RBC Distribution Width SD 50.8 fl (35.1-43.9); Red Blood Count 4.73 M/mm3 (4.2-5.4); White Blood Count 8.4 K/mm3 (4.4-11.0)
[2022-08-24 11:00] VITALS: BP 151/91; PULSE 72; RESP 16; O2SAT 96
[2022-08-24 11:13] LABS: ALB/GLOB Ratio 0.7 RATIO (0.9-2.4); AST(SGOT) 10 U/L (15-37); Alanine Aminotransfer ALT/SGPT 15 U/L (13-56); Albumin, Serum 3.3 g/dL (3.2-5.0); Alkaline Phosphatase 92 U/L (45-117); Anion Gap 7 (5-15); BUN 18 mg/dL (7-18); BUN/Creat Ratio 21.2 RATIO (10-20); Calcium,Total 8.9 mg/dL (8.5-10.1); Chloride 106 mmol/L (98-107); Creatinine, Serum 0.85 mg/dL (0.55-1.02); EST Glomerular Filtration Rate 75 mL/min (>60); Est Glom Filt Rate - Afr Amer 91 mL/min (>60); Estimated Creatinine Clearance 102.62 ml/min; Globulin 4.5 g/dL (2.2-4.2); Glucose 120 mg/dL (74-106); Lipase 25 U/L (13-75); Potassium 3.5 mmol/L (3.5-5.1); Protein, Total 7.8 g/dL (6.4-8.2); Sodium Level 138 mmol/L (136-145)
== END 2022-08-24 11:31 | disposition home or self-care (01) ==
PROVIDERS: Emergency Provider Emergency Medicine; Visit Provider Emergency Medicine
DX: R11.2 Nausea with vomiting, unspecified (principal); E11.9 Type 2 diabetes mellitus without complications; I10 Essential (primary) hypertension; J45.909 Unspecified asthma, uncomplicated; E66.9 Obesity, unspecified
CPT/HCPCS: 80053; 83690; 85025; 96360; 99282; J7030; A4216

== ENCOUNTER 2022-09-09 12:42 | Emergency (ER) | payer MEDICAID, SELFPAY ==
[2022-09-09 12:43] VITALS: BP 143/92; PULSE 84; RESP 18; TEMP 36.4; O2SAT 99; BMI 40.4
[2022-09-09 14:11] LABS: Absolute Lymphocyte Count 2.51 X10^3/uL (0.83-4.51); Absolute Neutrophil Count 6.7 X10^3/uL (2.0-7.7); Basophil# 0.05 X10^3/uL; Basophil% 0.5 % (0-1); Eosinophil# 0.21 X10^3/uL; Eosinophils% 2.1 % (0-5); Hemoglobin 8.3 g/dL (12.0-15.0); Lymphocyte # 2.51 X10^3/ul (0.83-4.51); Lymphocyte % 24.6 % (19-41); Mean Corp Hgb Conc 28.6 g/dL (32-36); Mean Corpuscular Hgb 21.7 pg (27.0-32.0); Mean Corpuscular Volume 75.7 fL (81-99); Mean Platelet Vol. 9.7 fl (6.2-12.0); Monocyte# 0.65 X10^3/uL; Monocyte% 6.4 % (0-10); NRBC Flagged by Analyzer 0 % (0-5); Neutrophil % 65.7 % (47-70); Platelet Count 345 K/mm3 (150-450); RBC Distribution Width CV 17.6 % (11.6-14.6); RBC Distribution Width SD 47.8 fl (35.1-43.9); Red Blood Count 3.83 M/mm3 (4.2-5.4); White Blood Count 10.2 K/mm3 (4.4-11.0)
[2022-09-09 14:20] LABS: Bedside Glucose 170 mg/dL (74-106)
[2022-09-09 14:26] LABS: Anion Gap 4 (5-15); BUN 12 mg/dL (7-18); BUN/Creat Ratio 13.3 RATIO (10-20); Calcium,Total 8.5 mg/dL (8.5-10.1); Chloride 106 mmol/L (98-107); EST Glomerular Filtration Rate 70 mL/min (>60); Est Glom Filt Rate - Afr Amer 85 mL/min (>60); Estimated Creatinine Clearance 100.14 ml/min; Glucose 151 mg/dL (74-106); Potassium 3.4 mmol/L (3.5-5.1); Sodium Level 138 mmol/L (136-145)
[2022-09-09 14:33] LABS: Mucous, Urine 0 SEEN /hpf (<or=2+)
[2022-09-09 14:34] LABS: Color, Urine Yellow (Yellow); Glucose, Dipstick Normal (Normal); Ketone-Dipstick Negative (Negative); Leukocyte Esterase-Dipstick 500 /ul (Negative); Nitrite-Dipstick Negative (Negative); Occult Blood-Urine 250 /ul (Negative); Protein-Dipstick 30 mg/dl (Negative); Specific Gravity, Urine 1.025 (1.002-1.030); Urine Bilirubin Dipstick Negative (Negative); Urine Clarity Sl. Cloudy (Clear); Urine Urobilinogen Normal (Normal)
[2022-09-09 14:45] LABS: Bacteria 3+ /hpf (None Seen); Red Blood Cells-Urine 25-50 SEEN /hpf (0-5); Squamous Epithelial Cells - UA 0-5 SEEN /hpf (5-10); White Blood Cells 25-50 SEEN /hpf (0-5)
--- NOTE | 2022-09-09 15:05 | EDS_ITS ---
HPI History of Present Illness Chief Complaint: Dizziness [facility] Medical History Asthma Diabetes Hypertension Home Medications simvastatin 20 mg tablet 20 mg PO QHS cholesterol 06/28/18 [History Last Taken 07/17/18] albuterol sulfate 90 mcg/actuation aerosol inhaler (Proventil HFA) 2 puff inhalation Q4H PRN PRN Sob &/Or Wheezing 07/18/18 [History Last Taken 07/18/18] fluoxetine 20 mg capsule 20 mg PO DAILY depression 07/18/18 [History Last Taken 07/17/18] metformin 500 mg tablet 500 mg PO BID #20 tabs 05/25/22 [Rx Last Taken Unknown] ondansetron 4 mg disintegrating tablet 4 mg PO Q8H PRN PRN Nausea #7 tabs 08/24/22 [Rx Last Taken Unknown] Allergy/AdvReac Type Severity Reaction Status Date / Time Penicillins AdvReac Vomiting Verified 09/09/22 12:44 Surgical History Hx of breast surgery Hx of tubal ligation Social History Smoking Status: Never smoker EXAM Physical Exam Const Vital Signs: 09/09/22 12:43 09/09/22 15:48 Temperature 97.5 F L Temperature Source Temporal Pulse Rate 84 Respiratory Rate 18 Respiratory Effort Normal Non-Labored Respiratory Pattern Normal Blood Pressure 143/92 H Blood Pressure Mean 109 Pulse Ox 99 Oxygen Delivery Method Room Air MDM MDM MDM Narrative Medical decision making narrative: HISTORY OF PRESENT ILLNESS: 52-year-old female here with acute onset of dizziness. 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 States she has been having intermittent heavy to light vaginal bleeding. Denies any other bleeding diathesis. No she is not eating and drinking normally. Denies any chest pain or shortness of breath associated. Denies any palpitations. Denies any unilateral leg swelling. She does endorse a frontal headache that began around this time as well. Denies any neck stiffness or fever. Denies any focal numbness or weakness. REVIEW OF SYSTEMS: Pertinent positives: Dizziness, vaginal bleeding Pertinent negatives: focal weakness PHYSICAL EXAM: Nursing triage notes reviewed, Vital signs reviewed Constitutional: please see mdm HENT: MMM Eyes: Pupils equal round and reactive to light, Extraocular muscles intact Neck: No stridor, no JVD, full neck ROM Lungs: Clear to auscultation, No wheezing or rales. No increased work of breathing, no conversational dyspnea, no accessory muscle use, no nasal flaring. No respiratory distress noted Heart: Regular rate and rhythm, No murmurs, No rubs and No gallops, 2+ distal pulses (radial, femoral, posterior tibial) in all extremities Abdomen: Soft, there is no tenderness, rigidity, rebound or guarding, no obvious peritoneal signs, no palpable pulsatile abdominal masses, no auscultated abdominal bruit : No CVAT Extremities: No edema Neuro: Alert and oriented x3, neuro exam at baseline, cranial nerves II through XII are intact. No pain with extraocular muscle movement. There is negative test of skew. Normal speech. 5 of 5 strength in upper and lower extremities in flexion extension. Intact sensation to light touch in upper and lower extremity dermatomes. No truncal or extremity ataxia. No dysdiadochokinesia. Normal gait. 2+ reflexes. No meningeal signs. Negative Babinski. NIH of 0 Skin: No rash or lesions noted MEDICAL DECISION MAKING: Chief Complaint: Lightheadedness External records reviewed: Head CT from June 2022 for dizziness and headache showed no acute abnormality no bleed no mass Factors affecting care: Type 2 diabetes hyperlipidemia, ALL IMAGES (IF OBTAINED) HAVE BEEN PERSONALLY REVIEWED AND INTERPRETED BY MYSELF. EKG with normal sinus rhythm, normal axis, normal intervals, no obvious STEMI, no WPW, ARVD or Brugada noted [facility] Narrative: Patient was initially hemodynamically stable, afebrile, nontoxic-appearing. No focal neurologic deficits on my initial exam no focal cardiopulmonary normalities. I considered the following differential diagnosis: Arrhythmia, ACS, anemia, electrolyte abnormality, dehydration, pneumonia, I considered acute intracranial normalities and cause headache and dizziness including ICH, mass, subarachnoid hemorrhage, subdural hematoma. Patient denies any head trauma. She had no focal neurologic deficits to suggest CVA, TIA or other intracranial abnormality no indication for advanced imaging at this time. In terms of patient's lightheadedness I obtained a broad lab and imaging work-up to further elucidate the etiology patient complaints. No evidence of myocardial ischemia, arrhythmia. No significant NIKA to suggest dehydration. Labs were consistent with likely anemia from abnormal uterine bleeding. Her hemoglobin is dropped by 2 g/dL from prior study in July 2022. this is the likely etiology of the patient's presentation. There is indication for emergent transfusion at this time. She was given strict return precautions and instructed to follow with her [employer]. I completed a structured, evidence-based clinical evaluation to screen for acute stroke and neurologic deficits in this patient. The patient has a normal detailed neurologic exam, which is highly sensitive for dangerous causes of dizziness, vertigo, or loss of balance. The evidence indicates that the patient is very low risk for an acute neurologic emergency and this is consistent with my clinical intuition. The risk of further workup or hospitalization is likely higher than the risk of the patient having a stroke or other dangerous neurologic condition. It is, therefore, in the patient?s best interest not to do additional emergent testing or to be hospitalized at this time. Shared Decision-Making I have discussed with the patient my clinical impression and the result of an evidence-based clinical evaluation to screen for stroke, as well as the risk of further testing and hospitalization. The evidence shows that the risk for stroke is less than 1%. Although the risk of stroke has not been completely eliminated, the risks of further testing or hospitalization likely exceed any potential benefit, and the patient agrees with not pursuing further emergent evaluation or hospitalization for stroke evaluation at this time. The patient and/or family, caregivers express understanding. The patient and/or family, caregivers agrees with the plan. Total critical care time today provided was at least 0 minutes. This excludes separately billable procedures. Critical care time (if documented) is secondary to the patient having high probability of clinically significant/life threaten ing deterioration in the patient's condition which required my urgent intervention. Lab Data Attestation: I reviewed the patient's lab results. Lab results narrative: CBC without leukocytosis to suggest examination, anemia, no normal cytopenia BMP with mild hypokalemia, no other significant electrode abnormalities, no acute kidney injury, no anion gap elevation to suggest endorgan perfusion UA with evidence of inflammation, hematuria Troponin is negative, no evidence of myocardial ischemia Labs: Laboratory Results - last 24 hr 09/09/22 09/09/22 09/09/22 13:55 14:00 14:07 WBC 10.2 RBC 3.83 L Hgb 8.3 L Hct 29.0 L MCV 75.7 L MCH 21.7 L MCHC 28.6 L RDW Std Deviation 47.8 H RDW Coeff of Yohannes 17.6 H Plt Count 345 MPV 9.7 Immature Gran % (Auto) 0.700 Neut % (Auto) 65.7 Lymph % (Auto) 24.6 [place]ell % (Auto) 6.4 Eos % (Auto) 2.1 Baso % (Auto) 0.5 Absolute Neuts (auto) 6.7 Absolute Lymphs (auto) 2.51 Nucleated RBC % 0 Sodium 138 Potassium 3.4 L Chloride 106 Carbon Dioxide 28.0 Anion Gap 4 L BUN 12 Creatinine 0.90 Estim Creat Clear Calc 100.14 Est GFR (MDRD) Af Amer 85 Est GFR (MDRD) Non-Af 70 BUN/Creatinine Ratio 13.3 Glucose 151 H Calcium 8.5 Troponin I High Sens 4 Urine Color Yellow Urine Clarity Sl. Cloudy Urine pH 5.0 Ur Specific [place] 1.025 Urine Protein 30 H Urine Glucose (UA) Normal Urine Ketones Negative Urine Occult Blood 250 H Urine Nitrite Negative Urine Bilirubin Negative Urine Urobilinogen Normal Ur Leukocyte Esterase 500 H Urine RBC 25-50 SEEN Urine WBC 25-50 SEEN Ur Squamous Epith Cells 0-5 SEEN Urine Bacteria 3+ Urine Mucus 0 SEEN Urine Test Negative POC Glucose 170 H Radiography Chest X-Ray - ED: Read by ED Physician Diagnostic Testing: Clinical Impression(s) from Imaging Studies Chest X-Ray 09/09/22 15:38 IMPRESSION: No acute amount is seen. Stable examination. Electronically Signed: Thaddeus Jones MD at 15:51 EDT , I have personally reviewed the patient's chest x-ray. Chest x-ray is unremarkable for pulmonary edema, pneumothorax, pneumonia or focal cardiopulmonary abnormality. Discharge Plan Triage Chief Complaint: Dizziness ED Provider: Luis Phillips Dx/Rx/DC Orders Clinical Impression: DUB (dysfunctional uterine bleeding), Anemia Instructions: Understanding Uterine Bleeding Prescriptions: No Action simvastatin 20 tablet 20 mg PO QHS albuterol sulfate [Proventil HFA] 6.7 GM HFA aerosol inhaler 2 puff inhalation Q4H PRN PRN (Reason: Sob &/Or Wheezing) fluoxetine 20 MG capsule 20 mg PO DAILY Patient Comments: TAKE 1 CAPSULE BY MOUTH DAILY metformin 500 mg tablet 500 mg PO BID Qty: 20 0RF ondansetron 4 mg tablet,disintegrating 4 mg PO Q8H PRN PRN (Reason: Nausea) Qty: 7 0RF [facility] Referrals: Nicolette Grimes MD [Med Staff - Active Staff] - Activity Restrictions/Additional Instructions: Thank you for trusting us with your care today! Please take Tylenol (2 pills, 650 mg), ibuprofen (2 pills, 400 mg) every 6 hours as needed for pain and fever control. Please return to the emergency department if your symptoms change or worsen. Specifically be of heavier bleeding. He lose consciousness. If develop pallor. Eval palpitations, chest pain or focal weakness. Please follow with your primary care physician for further outpatient evaluation and management. Disposition Disposition: Home, Self Care
--- NOTE | 2022-09-09 15:08 | EKG12_ITS ---
Test Reason : DIZZINESS Blood Pressure : / mmHG Vent. Rate : 072 BPM Atrial Rate : 072 BPM P-R Int : 150 ms QRS Dur : 090 ms QT Int : 416 ms P-R-T Axes : 040 -04 007 degrees QTc Int : 455 ms Normal sinus rhythm Minimal voltage criteria for LVH, may be normal variant ( R in aVL ) Possible Lateral infarct , age undetermined Inferior infarct , age undetermined Abnormal ECG Confirmed by LEONIDAS HEDRICK, ALEC ([id number]), book or script editor CYNDY PETERS ([id number]) on 09/10/2022 2:26:45 PM Referred By: Confirmed By:ALEC LAUREN MD
[2022-09-09 15:30] LABS: Troponin-I HS 4 pg/mL (3.0-54.0)
--- NOTE | 2022-09-09 15:38 | RAD_ITS ---
STUDY: X-RAY CHEST REASON FOR EXAM: Female, 52 years old. Dizziness TECHNIQUE: Single AP portable view of the chest. COMPARISON: Comparison is made with prior study dated May 25, 2022. FINDINGS: The lungs are clear and expanded. There is no demonstrated pleural abnormality. Normal size heart. Normal mediastinum and malcom. Normal visualized pulmonary arteries. Normal visualized aortic arch and descending thoracic aorta. There are diffuse degenerative changes of the visualized thoracic spine. There is degenerative osteoarthritis of the bilateral shoulders. There is no demonstrated abnormality of the visualized soft tissue structures of the upper abdomen. RAD/Chest 1 View (Portable) IMPRESSION: No acute amount is seen. Stable examination. Electronically Signed: Thaddeus Jones MD at 15:51 EDT ,
[2022-09-09] MEDS: Ketorolac 15 MG/ML Vial IV (15:46)
[2022-09-09] MEDS: Metoclopramide 10 MG/2 ML Vial 5 MG IV (15:47)
[2022-09-09 16:05] LABS: Internal QC Validated? YES +Cl - CLEAR BKGD; Pregnancy, Urine Negative Negative
[2022-09-09 16:55] VITALS: BP 142/87; PULSE 73; RESP 15; O2SAT 98
== END 2022-09-09 16:56 | disposition home or self-care (01) ==
PROVIDERS: Emergency Provider Emergency Medicine; Visit Provider Emergency Medicine
DX: N93.8 Other specified abnormal uterine and vaginal bleeding (principal); E11.9 Type 2 diabetes mellitus without complications; D64.9 Anemia, unspecified; I10 Essential (primary) hypertension; R51.9 Headache, unspecified; J45.909 Unspecified asthma, uncomplicated; E78.5 Hyperlipidemia, unspecified
CPT/HCPCS: 71045; 80048; 81001; 81025; 82962; 84484; 85025; 93005; 96361; 96374; 96375; 99283; A4216

== ENCOUNTER 2022-11-06 10:25 | Emergency (ER) | payer MEDICAID, SELFPAY ==
[2022-11-06 10:25] VITALS: BP 153/92; PULSE 76; RESP 18; TEMP 36.1; O2SAT 100; BMI 39.9
--- NOTE | 2022-11-06 11:13 | EX.ED.DYSGE1 ---
HPI History of Present Illness Chief Complaint: Cold Sx Informant: patient Onset/Context/Timing Onset: Days (3) Context: Sudden Onset Timing: Continuous Quality: Stabbing Location: Entire head Worsened by: Nothing Relieved by: Nothing Narrative Narrative: Patient presents with headache, nausea, and diarrhea that began 2 days ago. Patient states it has been constant for the past 3 days. Patient states it began suddenly after eating [employer]. Patient states her headache is generalized over the entire head. Patient describes it as stabbing. Patient states nothing makes it better and nothing makes it worse. Patient states she went to urgent care last week and had a COVID and flu test which were negative. Patient also admits to some pain in her chest. Patient also admits to a mild sore throat. Patient also admits to a cough. Patient is concerned that she has walking pneumonia. [facility] Medical History (Updated 11/06/22 @ 12:[address] Rob Perdomo DO) Asthma Bipolar 1 disorder Diabetes Hypertension Home Medications simvastatin 20 mg tablet 20 mg PO QHS cholesterol 06/28/18 [History Last Taken 07/17/18] albuterol sulfate 90 mcg/actuation aerosol inhaler (Proventil HFA) 2 puff inhalation Q4H PRN PRN Sob &/Or Wheezing 07/18/18 [History Last Taken 07/18/18] fluoxetine 20 mg capsule 20 mg PO DAILY depression 07/18/18 [History Last Taken 07/17/18] metformin 500 mg tablet 500 mg PO BID #20 tabs 05/25/22 [Rx Last Taken Unknown] ondansetron 4 mg disintegrating tablet 4 mg PO Q8H PRN PRN Nausea #7 tabs 08/24/22 [Rx Last Taken Unknown] ondansetron HCl 8 mg tablet 8 mg PO Q8H PRN nausea and vomiting #14 tabs 11/05/22 [Rx Last Taken Unknown] Allergy/AdvReac Type Severity Reaction Status Date / Time Penicillins AdvReac Vomiting Verified 11/05/22 10:30 Surgical History (Updated 11/06/22 @ 11:[address] Rob Perdomo DO) Hx of breast surgery Hx of cholecystectomy Hx of tubal ligation Social History Smoking Status: Never smoker ROS ROS ED Constitutional Constitutional ED: Denies chills or fever(s) Eyes Eyes: Denies blurry vision or change in vision ENT ENT ED: Reports sore throat; Denies rhinorrhea Cardiovascular Cardiovascular: Reports chest pain; Denies palpitations Respiratory/Chest Respiratory/Chest: Reports cough; Denies dyspnea Gastrointestinal Gastrointestinal: Reports diarrhea and nausea; Denies vomiting Genitourinary Genitourinary ED: Denies dysuria or hematuria Musculoskeletal Musculoskeletal: Denies back pain or neck pain Integumentary Denies abscess or rash Neurologic Neurologic: Reports headache(s); Denies weakness Allergic/Immunologic Allergic/Immunologic ED: Denies mouth swelling or urticaria EXAM Physical Exam Const Vital Signs: 11/06/22 10:25 11/06/22 11:32 Temperature 96.9 F L Temperature Source Temporal Pulse Rate 76 Respiratory Rate 18 Respiratory Pattern Normal Blood Pressure 153/92 H Blood Pressure Mean 112 Pulse Ox 100 Oxygen Delivery Method Room Air Positive well nourished, well developed and obese General Appearance ED: well developed and NAD Nutritional Appearance: obese HEENT Reports moist mucous membranes Neck supple and no JVD Resp normal respiratory effort and clear to auscultation bilaterally Cardio regular rate, regular rhythm and no murmurs GI normal to inspection, nondistended, normoactive bowel sounds and non-tender Palpation: soft Extremity normal to inspection General Extremety ED: Negative for edema or tenderness General Extremity: Negative for edema Neuro oriented x3, CN's II-XII intact bilaterally and no sensory deficits noted Sensorium / Orientation: alert Motor Exam: strength 5/5 throughout Psych mental status grossly normal Skin no rashes or lesions noted MDM MDM MDM Narrative Medical decision making narrative: Differential diagnosis includes viral illness, pneumonia, and anxiety. Chest x-ray will be obtained to assess for pneumonia. CBC will be obtained to assess for leukocytosis and anemia. Basic metabolic profile will be obtained to assess for electrolyte abnormality and renal function. History & Record Review Discussion w/independent historian: Patient Additional record(s) reviewed:: Prior labs Lab Data Attestation: I reviewed the patient's lab results. Lab results narrative: CBC was reviewed. There is a stable anemia with a hemoglobin of 8.8 and hematocrit 29.6. Platelets were normal. White blood cell count was normal. Basic metabolic profile was reviewed and was within normal limits. Labs: Laboratory Results - last 24 hr 11/06/22 11:25 WBC 8.6 RBC 4.10 L Hgb 8.8 L Hct 29.6 L MCV 72.2 L MCH 21.5 L MCHC 29.7 L RDW Std Deviation 44.8 H RDW Coeff of Yohannes 17.5 H Plt Count 373 MPV 10.0 Immature Gran % (Auto) 0.500 Neut % (Auto) 66.4 Lymph % (Auto) 24.1 [place] % (Auto) 6.4 Eos % (Auto) 2.1 Baso % (Auto) 0.5 Absolute Neuts (auto) 5.7 Absolute Lymphs (auto) 2.08 Nucleated RBC % 0 Sodium 140 Potassium 3.5 Chloride 107 Carbon Dioxide 28.0 Anion Gap 5 BUN 11 Creatinine 0.81 Estim Creat Clear Calc 109.72 Est GFR (MDRD) Af Amer 96 Est GFR (MDRD) Non-Af 80 BUN/Creatinine Ratio 13.6 Glucose 116 H Calcium 8.3 L Radiography Chest X-Ray - ED: 2 View, Read by ED Physician, Read by Radiologist and No Acute Disease Diagnostic Testing: Clinical Impression(s) from Imaging Studies Chest X-Ray 11/06/22 11:48 IMPRESSION: No acute abnormality is seen. Electronically Signed: Thaddeus Jones MD at 12:17 EDT , PA and lateral chest x-ray was obtained. There are 2 views. On my independent interpretation, lung reza are clear. There is normal cardiac silhouette. Bony thorax is normal. There is no acute process noted. Radiologist also interpreted the x-ray and agrees. Treatment and Re-Evaluation :: Patient was given IV fluids and Zofran. Patient is feeling better on reevaluation. Patient was advised of her findings. Patient was advised that this is most likely a viral illness. Patient was instructed to drink plenty of fluids. Patient was instructed to follow-up with her primary care physician in 5 to 7 days. Patient understood and was agreeable with the plan. All questions were answered. Discharge Plan Triage Chief Complaint: Cold Sx ED Provider: Rob Perdomo Dx/Rx/DC Orders Clinical Impression: Viral illness, Bipolar 1 disorder Instructions: ED Viral Syndrome (Adult) Prescriptions: No Action ondansetron HCl 8 mg tablet 8 mg PO Q8H PRN (Reason: nausea and vomiting) Qty: 14 0RF simvastatin 20 tablet 20 mg PO QHS albuterol sulfate [Proventil HFA] 6.7 GM HFA aerosol inhaler 2 puff inhalation Q4H PRN PRN (Reason: Sob &/Or Wheezing) fluoxetine 20 MG capsule 20 mg PO DAILY Patient Comments: TAKE 1 CAPSULE BY MOUTH DAILY metformin 500 mg tablet 500 mg PO BID Qty: 20 0RF ondansetron 4 mg tablet,disintegrating 4 mg PO Q8H PRN PRN (Reason: Nausea) Qty: 7 0RF Primary Care Provider: [facility] Malgorzata Barron Referrals: [facility] Malogrzata Barron [Primary Care Provider] - 5-7 Days Disposition Disposition: Home, Self Care
[2022-11-06] MEDS: 0.9% Normal Saline (1000mL) 1,000 ML 1000 ML IV (11:31)
[2022-11-06] MEDS: Ondansetron 4 MG/2 ML Vial IV (11:31)
[2022-11-06 11:36] LABS: Absolute Lymphocyte Count 2.08 X10^3/uL (0.83-4.51); Absolute Neutrophil Count 5.7 X10^3/uL (2.0-7.7); Basophil# 0.04 X10^3/uL; Basophil% 0.5 % (0-1); Eosinophil# 0.18 X10^3/uL; Eosinophils% 2.1 % (0-5); Hematocrit 29.6 % (37-47); Hemoglobin 8.8 g/dL (12.0-15.0); Lymphocyte # 2.08 X10^3/ul (0.83-4.51); Lymphocyte % 24.1 % (19-41); Mean Corp Hgb Conc 29.7 g/dL (32-36); Mean Corpuscular Hgb 21.5 pg (27.0-32.0); Mean Corpuscular Volume 72.2 fL (81-99); Monocyte# 0.55 X10^3/uL; Monocyte% 6.4 % (0-10); NRBC Flagged by Analyzer 0 % (0-5); Neutrophil # 5.73 X10^3/uL (2.7-7.7); Neutrophil % 66.4 % (47-70); Platelet Count 373 K/mm3 (150-450); RBC Distribution Width CV 17.5 % (11.6-14.6); RBC Distribution Width SD 44.8 fl (35.1-43.9); White Blood Count 8.6 K/mm3 (4.4-11.0)
--- NOTE | 2022-11-06 11:48 | RAD_ITS ---
STUDY: X-RAY CHEST REASON FOR EXAM: Female, 52 years old. Cough TECHNIQUE: PA and lateral views of the chest. COMPARISON: Comparison is made with prior study dated September 09, 2022. FINDINGS: The lungs are clear and expanded. There is no demonstrated pleural abnormality. Normal size heart. Normal mediastinum and malcom. Normal visualized pulmonary arteries. Normal visualized aortic arch and descending thoracic aorta. There are diffuse degenerative changes of the visualized thoracic spine. Mild dextroscoliosis. Normal visualized ribs, clavicles, and shoulders. There is no demonstrated abnormality of the visualized soft tissue structures of the upper abdomen. RAD/Chest PA and Lateral IMPRESSION: No acute abnormality is seen. Electronically Signed: Thaddeus Jones MD at 12:17 EDT ,
[2022-11-06 11:53] LABS: Anion Gap 5 (5-15); BUN 11 mg/dL (7-18); BUN/Creat Ratio 13.6 RATIO (10-20); Calcium,Total 8.3 mg/dL (8.5-10.1); Chloride 107 mmol/L (98-107); Creatinine, Serum 0.81 mg/dL (0.55-1.02); EST Glomerular Filtration Rate 80 mL/min (>60); Est Glom Filt Rate - Afr Amer 96 mL/min (>60); Estimated Creatinine Clearance 109.72 ml/min; Glucose 116 mg/dL (74-106); Potassium 3.5 mmol/L (3.5-5.1); Sodium Level 140 mmol/L (136-145)
[2022-11-06 13:05] VITALS: RESP 16
== END 2022-11-06 13:08 | disposition home or self-care (01) ==
PROVIDERS: Emergency Provider Emergency Medicine; Visit Provider Emergency Medicine
DX: B34.9 Viral infection, unspecified (principal); F31.9 Bipolar disorder, unspecified; E11.9 Type 2 diabetes mellitus without complications; I10 Essential (primary) hypertension; J45.909 Unspecified asthma, uncomplicated; Z79.899 Other long term (current) drug therapy; Z79.84 Long term (current) use of oral hypoglycemic drugs; Z90.49 Acquired absence of other specified parts of digestive tract
CPT/HCPCS: 71046; 80048; 85025; 96361; 96374; 99283; J7030; A4216; J2405

== ENCOUNTER 2022-12-21 20:07 | Emergency (ER) | payer MEDICAID, SELFPAY ==
[2022-12-21 20:08] VITALS: BP 166/83; PULSE 81; RESP 16; TEMP 35.8; O2SAT 100
--- NOTE | 2022-12-21 20:10 | RAD_ITS ---
INDICATION: pain EXAMINATION/TECHNIQUE: X-RAY - RIGHT XR Ankle 3 VIEWS COMPARISON: FINDINGS: SOFT TISSUES: There is subcutaneous edema. No radiopaque foreign body. BONES/JOINTS: No acute fracture or subluxation.. Normal alignment. Preservation of the joint space.. No sclerotic or destructive changes observed. RAD/Ankle min 3 Views IMPRESSION: No acute bony injury. Electronically Signed: Stu Goldstein DO at 20:49 EDT ,
[2022-12-21 22:12] VITALS: BMI 40.5
--- NOTE | 2022-12-21 22:34 | US_ITS ---
INDICATION: -- PAIN EXAMINATION: Ultrasound US Venous Duplex RLE Unilat / Limited TECHNIQUE: Gaston scale, pulse wave, and color flow Doppler imaging was performed of the lower extremity venous system. The bilateral greater saphenous, common femoral, femoral, and popliteal veins were interrogated. COMPARISON: FINDINGS: There is normal compression, augmentation, and signal throughout the visualized deep lower extremity veins. No mass or fluid collection. US/Venous Duplex Imag/Limited/Uni IMPRESSION: No sonographic evidence of deep venous thrombosis. Electronically Signed: Stu Goldstein DO at 23:14 EDT Reading Location ID and State: [facility] / [place] Tel [phone], Service support ,
--- NOTE | 2022-12-21 22:48 | EDS_ITS ---
HPI History of Present Illness Chief Complaint: Lower Extremity Injury Informant: patient Narrative Narrative: 52-year-old female presenting to the emergency room with right ankle pain patient states pain began on Wednesday. She denies any trauma/injury. States s he was seen at an urgent care but there is no x-ray available. She states that tonight she went to put weight on it felt a pop over the medial anterior aspect of the ankle. She notes swelling and some discomfort in the leg/calf. She denies any DVT or PE risk factors or personal history of. She denies any redness warmth or fevers. She is a diabetic. No history of gout or rheumatologic issues. [facility] Medical History Asthma Bipolar 1 disorder Diabetes Hypertension Home Medications simvastatin 20 mg tablet 20 mg PO QHS cholesterol 06/28/18 [History Last Taken 07/17/18] albuterol sulfate 90 mcg/actuation aerosol inhaler (Proventil HFA) 2 puff inhalation Q4H PRN PRN Sob &/Or Wheezing 07/18/18 [History Last Taken 07/18/18] fluoxetine 20 mg capsule 20 mg PO DAILY depression 07/18/18 [History Last Taken 07/17/18] metformin 500 mg tablet 500 mg PO BID #20 tabs 05/25/22 [Rx Last Taken Unknown] ondansetron 4 mg disintegrating tablet 4 mg PO Q8H PRN PRN Nausea #7 tabs 08/24/22 [Rx Last Taken Unknown] ondansetron HCl 8 mg tablet 8 mg PO Q8H PRN nausea and vomiting #14 tabs 11/05/22 [Rx Last Taken Unknown] Allergy/AdvReac Type Severity Reaction Status Date / Time Penicillins AdvReac Vomiting Verified 12/21/22 20:08 Surgical History Hx of breast surgery Hx of cholecystectomy Hx of tubal ligation Social History Smoking Status: Never smoker ROS ROS ED Constitutional Constitutional ED: Denies chills or weight loss Eyes Eyes: Denies change in vision or diplopia ENT ENT ED: Denies ear pain, rhinorrhea or sore throat Cardiovascular Cardiovascular: Denies chest pain, orthopnea, palpitations or racing heartbeat Respiratory/Chest Respiratory/Chest: Denies cough, dyspnea or orthopnea Gastrointestinal Gastrointestinal: Denies abdominal pain, diarrhea, nausea or vomiting Genitourinary Genitourinary ED: Denies dysuria, hematuria or urinary frequency Musculoskeletal Musculoskeletal: Reports other Details: See history of present illness ; Denies arthralgias, back pain, myalgias or neck pain Integumentary Denies abscess or rash Neurologic Neurologic: Denies headache(s) or weakness Psychiatric Psychiatric: Denies anxiety, depression, suicidal ideation or suicidal thoughts Endocrine Endocrinology: Denies polydipsia, polyphagia or polyuria Allergic/Immunologic Allergic/Immunologic ED: Denies mouth swelling, tongue swelling or urticaria EXAM Physical Exam Const Vital Signs: 12/21/22 20:08 Temperature 96.5 F L Temperature Source Temporal Pulse Rate 81 Respiratory Rate 16 Blood Pressure 166/83 H Blood Pressure Mean 110 Pulse Ox 100 Oxygen Delivery Method Room Air Positive well nourished and well developed General Appearance ED: well developed HEENT Reports normocephalic, head/scalp atraumatic and moist mucous membranes Eyes PERRL and EOMs intact bilaterally Neck no lymphadenopathy, supple and no JVD Resp normal respiratory effort and clear to auscultation bilaterally Cardio regular rate, regular rhythm and no murmurs GI normal to inspection, nondistended, normoactive bowel sounds and non-tender Palpation: soft Back/Spine no CVA tenderness and normal ROM Extremity Extremity Narrative: Patient reports tenderness to palpation of the calf and the anterior aspect of the right leg. She reports tenderness to palpation over the anterior medial aspect of the ankle. There is some very mild swelling compared to the left. There is no redness or increased warmth. Skin appears otherwise normal. Neurovascular intact. General Extremety ED: Negative for edema General Extremity: Negative for edema Neuro oriented x3 and CN's II-XII intact bilaterally Sensorium / Orientation: alert Motor Exam: strength 5/5 throughout Psych mental status grossly normal Mood & Affect: Negative for depressed or tearful Skin no rashes or lesions noted and no wounds MDM MDM MDM Narrative Medical decision making narrative: Patient makes mention that she is on a time constraint as she has been in the waiting room and the taxi service stops at midnight. She also needs to try to go to work tomorrow but was wondering if she could have a work note. My independent interpretation of the plain films of the right ankle is no acute fracture. Patient does not appear to have an infectious or autoimmune etiology at this time. There is no overlying erythema or increased warmth. There is no significant swelling. Duplex ultrasound is negative for DVT. I think at this point we will have the patient utilize anti-inflammatories and wrap. The patient has an appointment with her primary care provider in less than 36 hours. I recommend that she brings this to their attention so that if not improving she may follow-up with. Radiography Diagnostic Testing: Clinical Impression(s) from Imaging Studies Ankle X-Ray 12/21/22 20:10 IMPRESSION: No acute bony injury. Electronically Signed: Stu Goldstein DO at 20:49 EDT Reading Location ID and State: [facility] / [place] Tel [phone], Service support , Discharge Plan Triage Chief Complaint: Lower Extremity Injury ED Provider: Gabe Barreto Dx/Rx/DC Orders Clinical Impression: Acute right ankle pain, Arthralgia of right lower leg Instructions: ED Pain, Acute, Uncertain Cause Prescriptions: No Action ondansetron HCl 8 mg tablet 8 mg PO Q8H PRN (Reason: nausea and vomiting) Qty: 14 0RF simvastatin 20 tablet 20 mg PO QHS albuterol sulfate [Proventil HFA] 6.7 GM HFA aerosol inhaler 2 puff inhalation Q4H PRN PRN (Reason: Sob &/Or Wheezing) fluoxetine 20 MG capsule 20 mg PO DAILY Patient Comments: TAKE 1 CAPSULE BY MOUTH DAILY metformin 500 mg tablet 500 mg PO BID Qty: 20 0RF ondansetron 4 mg tablet,disintegrating 4 mg PO Q8H PRN PRN (Reason: Nausea) Qty: 7 0RF Primary Care Provider: [facility] Malgorzata Barron Referrals: [facility] Malgorzata Barron [Primary Care Provider] - Keep [place]ke[place] appointment Activity Restrictions/Additional Instructions: I would recommend Motrin 600 mg at least every 8 hours for 5 to 7 days. Please take it with food. Please monitor for any redness or worsening swelling/pain. Please mention this when you go to your doctors appointment on Wednesday. Disposition Disposition: Home, Self Care
== END 2022-12-21 23:09 | disposition home or self-care (01) ==
PROVIDERS: Emergency Provider Emergency Medicine; Visit Provider Emergency Medicine
DX: M25.571 Pain in right ankle and joints of right foot (principal); E11.9 Type 2 diabetes mellitus without complications; I10 Essential (primary) hypertension; J45.909 Unspecified asthma, uncomplicated; M25.59 Pain in other specified joint
CPT/HCPCS: 73610; 93971; 99284

== ENCOUNTER 2023-01-04 10:27 | Emergency (ER) | payer MEDICAID, SELFPAY ==
[2023-01-04 10:28] VITALS: BP 155/92; PULSE 90; RESP 16; TEMP 36.3; O2SAT 99; BMI 40.7
--- NOTE | 2023-01-04 11:04 | EDS_ITS ---
HPI <KLEBER Umaña - Last Filed: 01/04/23 13:10> History of Present Illness Chief Complaint: Cough Narrative Narrative: Patient presenting today with a productive cough that she has had since Wednesday. Reports that she was around her kids last week who were sick with similar symptoms and she has had a scratchy throat, productive cough with yellow mucus, nasal congestion, chills, body aches, and occasional nausea. She also reports that at times she coughs so much that she becomes incontinent of small amounts of urine. She has been taking NyQuil and ibuprofen with minimal relief. Past medical history includes diabetes mellitus, hypertension, hyperlipidemia, bipolar disorder. [facility] <KLEBER Umaña - Last Filed: 01/04/23 13:10> [facility] Medical History (Updated 01/04/23 @ 11:47 by KLEBER Umaña) Asthma Bipolar 1 disorder Diabetes Hyperlipidemia Hypertension Home Medications simvastatin 20 mg tablet 20 mg PO QHS cholesterol 06/28/18 [History Last Taken 07/17/18] albuterol sulfate 90 mcg/actuation aerosol inhaler (Proventil HFA) 2 puff inhalation Q4H PRN PRN Sob &/Or Wheezing 07/18/18 [History Last Taken 07/18/18] fluoxetine 20 mg capsule 20 mg PO DAILY depression 07/18/18 [History Last Taken 07/17/18] metformin 500 mg tablet 500 mg PO BID #20 tabs 05/25/22 [Rx Last Taken Unknown] ondansetron 4 mg disintegrating tablet 4 mg PO Q8H PRN PRN Nausea #7 tabs 08/24/22 [Rx Last Taken Unknown] ondansetron HCl 8 mg tablet 8 mg PO Q8H PRN nausea and vomiting #14 tabs 11/05 [Rx Last Taken Unknown] benzonatate 200 mg capsule 200 mg PO TID PRN cough #20 caps 01/04/23 [Rx Last Taken Unknown] budesonide-formoterol HFA 80 mcg-4.5 mcg/actuation aerosol inhaler (Symbicort) 2 puff inhalation BID #10.2 grams 01/04/23 [Rx Last Taken Unknown] Allergy/AdvReac Type Severity Reaction Status Date / Time Penicillins AdvReac Vomiting Verified 01/04/23 10:29 Surgical History Hx of breast surgery Hx of cholecystectomy Hx of tubal ligation Social History Smoking Status: Never smoker ROS <KLEBER Umaña - Last Filed: 01/04/23 13:10> ROS ED Constitutional Constitutional ED: Denies chills or fever(s) Cardiovascular Cardiovascular: Denies chest pain or palpitations Respiratory/Chest Respiratory/Chest: Reports cough; Denies dyspnea, dyspnea on exertion or tachypnea Gastrointestinal Gastrointestinal: Reports nausea; Denies abdominal pain or vomiting Genitourinary Genitourinary ED: Denies dysuria, hematuria or urinary urgency Musculoskeletal Musculoskeletal: Reports myalgias; Denies arthralgias Integumentary Denies rash Neurologic Neurologic: Denies weakness Psychiatric Psychiatric: Denies anxiety, depression, suicidal ideation or suicidal thoughts EXAM <KLEBER Umaña - Last Filed: 01/04/23 13:10> Physical Exam Const Vital Signs: 01/04/23 10:28 01/04/23 11:06 Temperature 97.4 F L Temperature Source Temporal Pulse Rate 90 Respiratory Rate 16 Respiratory Effort Normal Respiratory Depth Normal Respiratory Pattern Normal Blood Pressure 155/92 H Blood Pressure Mean 113 Pulse Ox 99 Oxygen Delivery Method Room Air Room Air Positive well nourished, well developed and no apparent distress General Appearance ED: well developed HEENT Reports normocephalic, head/scalp atraumatic and TM's clear HEENT Narrative: Posterior pharynx clear, no tonsillar exudate, uvula midline, no trismus, no drooling Tympanic Membrane ED: Yes TM's clear bilateral Mouth ED: Yes moist mucous membranes normal Eyes PERRL and EOMs intact bilaterally Neck full ROM and supple Chest Wall inspection of chest normal Resp normal respiratory effort and clear to auscultation bilaterally Cardio regular rate and regular rhythm GI soft to palpation, non-tender, non-distended and no masses Back/Spine normal ROM and normal to inspection Extremity normal to inspection and full ROM Neuro oriented x3, CN's II-XII intact bilaterally, moves all extremities, no focal motor deficits and no sensory deficits noted Sensorium / Orientation: awake and alert Psych mental status grossly normal and thought process normal Skin no rashes or lesions noted and no wounds <Dr. Larry Mei DO - Last Filed: 01/04/23 14:14> Physical Exam Const Vital Signs: 01/04/23 10:28 01/04/23 11:06 Temperature 97.4 F L Temperature Source Temporal Pulse Rate 90 Respiratory Rate 16 Respiratory Effort Normal Respiratory Depth Normal Respiratory Pattern Normal Blood Pressure 155/92 H Blood Pressure Mean 113 Pulse Ox 99 Oxygen Delivery Method Room Air Room Air [facility] <KLEBER Umaña - Last Filed: 01/04/23 13:10> [facility] Narrative Medical decision making narrative: Patient presenting today with cold-like symptoms that she has had since Wednesday. In the triage note she did report that she has been vomiting due to coughing so much but on further examination she admits that she is not actually vomiting gastric contents, she is just coughing up a lot of phlegm. She is well- appearing and in no acute distress, she is afebrile, O2 saturations 99% on room air. Symptoms are consistent with a viral illness. Patient did request that she have a chest x-ray obtained, although I do not feel that patient symptoms are consistent with pneumonia, patient still requests to have one and this will be ordered. Patient would also like COVID and flu swabs to be obtained. Patient is COVID-positive, chest x-ray unremarkable. She will be given a prescription for Tessalon Perles and a Symbicort inhaler. She has been given supportive care measures and will be discharged in stable condition. She is comfortable with plan. She has been given return instructions. Radiography X-Ray: Read by ED Physician and Read by Radiologist Diagnostic Testing: Clinical Impression(s) from Imaging Studies Chest X-Ray 01/04/23 11:09 IMPRESSION: Normal x-ray examination of the chest. Electronically Signed: Thaddeus Jones MD at 11:22 EST , <Dr. Larry Mei, DO - Last Filed: 01/04/23 14:14> [facility] Narrative Medical decision making narrative: Patient presenting today with cold-like symptoms that she has had since Wednesday. In the triage note she did report that she has been vomiting due to coughing so much but on further examination she admits that she is not actually vomiting gastric contents, she is just coughing up a lot of phlegm. She is well- appearing and in no acute distress, she is afebrile, O2 saturations 99% on room air. Symptoms are consistent with a viral illness. Patient did request that she have a chest x-ray obtained, although I do not feel that patient symptoms are consistent with pneumonia, patient still requests to have one and this will be ordered. Patient would also like COVID and flu swabs to be obtained. Patient is COVID-positive, chest x-ray unremarkable. She will be given a prescription for Tessalon Perles and a Symbicort inhaler. She has been given supportive care measures and will be discharged in stable condition. She is comfortable with plan. She has been given return instructions. This patient was seen with a PA/[employer] Individually assessed they patient including history and physical. I have reviewed everything on the chart that is available and agree with the documentation provided by the PA/[employer] including discussion about the assessment, treatment plan, discussion, and return precautions. Presenting with cough urinary incontinence and posttussive emesis. Vital signs are stable she is afebrile. Lungs clear to auscultation. She does feel as if she is wheezing centrally and states he has a history of bronchitis. Chest x- ray my interpretation shows no acute process. Radiologist interpreted these. She did test positive for COVID today. Patient she will be given an inhaler. As well as Tessalon Perles for home. Return precautions were discussed. Impression: 1. Wheezing. Acute bronchitis 2. COVID-19 Lab Data Attestation: I reviewed the patient's lab results. Radiography Diagnostic Testing: Clinical Impression(s) from Imaging Studies Chest X-Ray 01/04/23 11:09 IMPRESSION: Normal x-ray examination of the chest. Electronically Signed: Thaddeus Jones MD at 11:22 EST , Discharge Plan Triage Chief Complaint: Cough ED Midlevel Provider: Shannan Laureano ED Provider: Larry Mei Dx/Rx/DC Orders Clinical Impression: COVID-19, Female stress incontinence Instructions: Coronavirus Disease 2019 (COVID-19): Caring for Yourself or Others Prescriptions: New budesonide-formoterol [Symbicort] 80-4.5 mcg/actuation HFA aerosol inhaler 2 puff inhalation BID Qty: 10.2 0RF benzonatate 200 mg capsule 200 mg PO TID PRN (Reason: cough) Qty: 20 0RF No Action ondansetron HCl 8 mg tablet 8 mg PO Q8H PRN (Reason: nausea and vomiting) Qty: 14 0RF simvastatin 20 tablet 20 mg PO QHS albuterol sulfate [Proventil HFA] 6.7 GM HFA aerosol inhaler 2 puff inhalation Q4H PRN PRN (Reason: Sob &/Or Wheezing) fluoxetine 20 MG capsule 20 mg PO DAILY Patient Comments: TAKE 1 CAPSULE BY MOUTH DAILY metformin 500 mg tablet 500 mg PO BID Qty: 20 0RF ondansetron 4 mg tablet,disintegrating 4 mg PO Q8H PRN PRN (Reason: Nausea) Qty: 7 0RF Stand Alone Forms: ED Work / School Excuse Primary Care Provider: [facility] Maglorzata Bar[facility] - 1 Week if not improving Activity Restrictions/Additional Instructions: Stay well-hydrated, alternate Tylenol and ibuprofen for fever as needed. Return for any worsening of your symptoms. Disposition Disposition: Home, Self Care Discharge Date/Time: 01/04/23 12:01
[2023-01-04 11:06] VITALS: O2SAT 98
--- NOTE | 2023-01-04 11:09 | RAD_ITS ---
STUDY: X-RAY CHEST REASON FOR EXAM: Female, 52 years old. Cough TECHNIQUE: PA and lateral views of the chest. COMPARISON: None. FINDINGS: The lungs are clear and expanded. There is no demonstrated pleural abnormality. Normal size heart. Normal mediastinum and malcom. Normal visualized pulmonary arteries. Normal visualized aortic arch and descending thoracic aorta. There are degenerative changes of the visualized thoracic spine. Normal visualized ribs, clavicles, and shoulders. There is no demonstrated abnormality of the visualized soft tissue structures of the upper abdomen. RAD/Chest PA and Lateral IMPRESSION: Normal x-ray examination of the chest. Electronically Signed: Thaddeus Jones MD at 11:22 EST ,
== END 2023-01-04 12:01 | disposition home or self-care (01) ==
PROVIDERS: Emergency Provider Student in an Organized Health Care Education/Training Program; Visit Provider Student in an Organized Health Care Education/Training Program
DX: U07.1 COVID-19 (principal); F31.9 Bipolar disorder, unspecified; E11.9 Type 2 diabetes mellitus without complications; N39.3 Stress incontinence (female) (male); I10 Essential (primary) hypertension; E78.5 Hyperlipidemia, unspecified; J20.9 Acute bronchitis, unspecified; J45.909 Unspecified asthma, uncomplicated
CPT/HCPCS: 71046; 87428; 99282

== ENCOUNTER 2023-02-10 11:11 | Emergency (ER) | payer MEDICAID, SELFPAY ==
[2023-02-10 11:12] VITALS: BP 144/105; PULSE 62; RESP 14; TEMP 36.4; O2SAT 98; BMI 41.2
--- NOTE | 2023-02-10 11:19 | VDLE_ITS ---
Reason For Study: RLE Pain RIGHT LEFT GSV is normal. CFV is compressible, spontaneous, competent, CFV is compressible, spontaneous, competent and demonstrates pulsatile venous flow. and demonstrates pulsatile venous flow. FV is compressible, spontaneous, competent and demonstrates pulsatile venous flow. POP V is compressible, spontaneous, competent and demonstrates pulsatile venous flow. T/P Trunk is compressible. PTV is compressible. RT PerV is compressible. Procedure This is a venous duplex using B-mode, color flow and spectral Doppler. Exam performed portable in ED. The exam was diagnostic. A preliminary report was called and/or faxed to Dr. Whyte. VL/Venous Duplex US, Unilateral Interpretation Summary Deep veins of the right lower extremity are patent and compressible segmentally . There is no evidence of right lower extremity deep vein thrombosis. The right great sapheno us vein appears patent and compressible segmentally. Ordering Physician: Gabriel Whyte Referring Physician: N/A Performed By: Maurizio Koch RVT
--- NOTE | 2023-02-10 11:19 | ED.VIS.LOWEX ---
HPI History of Present Illness Chief Complaint: Lower Extremity Injury Detail of Chief Complaint: Pain and swelling to the right leg Informant: patient Narrative Narrative: Patient presents with pain and swelling to her right leg that started about a week ago. She denies any injury or trauma. Patient was seen in urgent care and referred to ER to evaluate for DVT. She has no history of DVT. She denies any chest pain out of the ordinary or shortness of breath. She denies hemoptysis. Patient does have history of asthma. Patient denies recent surgery or recent travel. [facility] Medical History (Updated 02/10/23 @ 11:[address] Gabriel Whyte, DO) Asthma Bipolar 1 disorder Diabetes Hyperlipidemia Hypertension Home Medications simvastatin 20 mg tablet 20 mg PO QHS cholesterol 06/28/18 [History Last Taken 07/17/18] albuterol sulfate 90 mcg/actuation aerosol inhaler (Proventil HFA) 2 puff inhalation Q4H PRN PRN Sob &/Or Wheezing 07/18/18 [History Last Taken 07/18/18] fluoxetine 20 mg capsule 20 mg PO DAILY depression 07/18/18 [History Last Taken 07/17/18] metformin 500 mg tablet 500 mg PO BID #20 tabs 05/25/22 [Rx Last Taken Unknown] ondansetron 4 mg disintegrating tablet 4 mg PO Q8H PRN PRN Nausea #7 tabs 08/24/22 [Rx Last Taken Unknown] ondansetron HCl 8 mg tablet 8 mg PO Q8H PRN nausea and vomiting #14 tabs 11/05/22 [Rx Last Taken Unknown] benzonatate 200 mg capsule 200 mg PO TID PRN cough #20 caps 01/04/23 [Rx Last Taken Unknown] budesonide-formoterol HFA 80 mcg-4.5 mcg/actuation aerosol inhaler (Symbicort) 2 puff inhalation BID #10.2 grams 01/04/23 [Rx Last Taken Unknown] furosemide 20 mg tablet (Lasix) 20 mg PO DAILY #5 tabs 02/10/23 [Rx Last Taken Unknown] Allergy/AdvReac Type Severity Reaction Status Date / Time Penicillins AdvReac Vomiting Verified 02/10/23 11:11 Surgical History Hx of breast surgery Hx of cholecystectomy Hx of tubal ligation Social History Smoking Status: Never smoker ROS ROS ED Review of Systems ROS Unobtainable: other Constitutional Constitutional ED: Reports lethargy; Denies chills, fever(s), sweats or weight loss Eyes Eyes: Denies blurry vision, change in vision or diplopia ENT ENT ED: Denies rhinorrhea or sore throat Cardiovascular Cardiovascular: Denies chest pain, orthopnea or racing heartbeat Respiratory/Chest Respiratory/Chest: Denies cough, dyspnea, dyspnea on exertion, orthopnea or sputum Gastrointestinal Gastrointestinal: Denies abdominal pain, diarrhea, nausea or vomiting Genitourinary Genitourinary ED: Denies dysuria, hematuria or urinary frequency Musculoskeletal Musculoskeletal: Reports other Details: Pain and swelling to right leg ; Denies arthralgias, back pain, myalgias or neck pain Integumentary Denies abscess, Abrasions or rash Neurologic Neurologic: Denies headache(s) or weakness Psychiatric Psychiatric: Denies anxiety, depression or suicidal thoughts Endocrine Endocrinology: Denies polydipsia, polyphagia or polyuria Hematologic/Lymphatic Hematologic/Lymphatic: Denies easy bleeding, easy bruising or lymphadenopathy Allergic/Immunologic Allergic/Immunologic ED: Denies mouth swelling, tongue swelling or urticaria EXAM Physical Exam Const Vital Signs: 02/10/23 11:12 Temperature 97.6 F L Temperature Source Temporal Pulse Rate 62 Respiratory Rate 14 Blood Pressure 144/105 H Blood Pressure Mean 118 Pulse Ox 98 Oxygen Delivery Method Room Air Positive well nourished and well developed General Appearance ED: well developed and NAD HEENT Reports TM's clear and moist mucous membranes normocephalic and atraumatic; Negative for trauma or tenderness Tympanic Membrane ED: Yes TM's clear Eyes PERRL and EOMs intact bilaterally General Eye ED: Negative for pale conjunctiva or scleral icterus Neck no lymphadenopathy, supple and no JVD General: Negative for tenderness Chest Wall inspection of chest normal and palpation of chest normal Chest: Negative for tenderness Resp normal respiratory effort and clear to auscultation bilaterally Effort and Inspection: Negative for respiratory distress or pain with movement Auscultation: Negative for rhonchi, wheezes or diminished lung sounds Cardio regular rate, regular rhythm, S1 normal heart sound, S2 normal heart sound and no murmurs Peripheral Pulses: pulses 2+ throughout GI normal to inspection, nondistended, normoactive bowel sounds, soft to palpation, non-tender, non-distended and no masses Back/Spine no CVA tenderness and no thoracic nor lumbar tenderness Extremity Extremity Narrative: Right lower extremity-I do not appreciate any obvious swelling compared to the left side. No ropes or cords palpated. She does have some tenderness over the calf and anterior aspect of the right ankle. Neurovascularly intact. General Extremety ED: Negative for edema General Extremity: Negative for edema Neuro oriented x3, CN's II-XII intact bilaterally, no sensory deficits noted and gait normal Sensorium / Orientation: awake, alert, oriented to person, oriented to place and oriented to time Motor Exam: strength 5/5 throughout and strength abnormal Psych mental status grossly normal Skin no rashes or lesions noted and no wounds MDM MDM MDM Narrative Medical decision making narrative: Patient had venous Doppler of right lower extremity that was negative for DVT. Patient also asked me to look at her ears because she had been having some discomfort. Her ear exam here is normal. At this point etiology of her leg swelling and discomfort is unclear although it is not impressive. She usually states that swelling gets worse throughout the day and worse at night but better in the morning. She asked if I would give her a water pill for couple of days which I will do see if that helps with her symptoms. Patient advised to follow-up with her primary care physician within next 3 to 5 days. Regarding the ear pain may be related to eustachian tube dysfunction. Recommended an antihistamine. Discharge Plan Triage Chief Complaint: Lower Extremity Injury ED Provider: Gabriel Whyte Dx/Rx/DC Orders Clinical Impression: Leg edema Instructions: ED Peripheral Edema, Unilateral Prescriptions: New furosemide [Lasix] 20 mg tablet 20 mg PO DAILY Qty: 5 0RF No Action ondansetron HCl 8 mg tablet 8 mg PO Q8H PRN (Reason: nausea and vomiting) Qty: 14 0RF simvastatin 20 tablet 20 mg PO QHS albuterol sulfate [Proventil HFA] 6.7 GM HFA aerosol inhaler 2 puff inhalation Q4H PRN PRN (Reason: Sob &/Or Wheezing) fluoxetine 20 MG capsule 20 mg PO DAILY Patient Comments: TAKE 1 CAPSULE BY MOUTH DAILY metformin 500 mg tablet 500 mg PO BID Qty: 20 0RF ondansetron 4 mg tablet,disintegrating 4 mg PO Q8H PRN PRN (Reason: Nausea) Qty: 7 0RF budesonide-formoterol [Symbicort] 80-4.5 mcg/actuation HFA aerosol inhaler 2 puff inhalation BID Qty: 10.2 0RF benzonatate 200 mg capsule 200 mg PO TID PRN (Reason: cough) Qty: 20 0RF Primary Care Provider: [facility] Malgorzata Barron Referrals: [facility] Malgorzata Barron [Primary Care Provider] - 3-5 Days Disposition Disposition: Home, Self Care Discharge Date/Time: 02/10/23 12:03
== END 2023-02-10 12:03 | disposition home or self-care (01) ==
PROVIDERS: Emergency Provider Emergency Medicine; Visit Provider Emergency Medicine
DX: R60.0 Localized edema (principal); M79.604 Pain in right leg; E78.5 Hyperlipidemia, unspecified; I10 Essential (primary) hypertension
CPT/HCPCS: 93971; 99282

== ENCOUNTER 2023-04-07 13:37 | Emergency (ER) | payer MEDICAID, SELFPAY ==
[2023-04-07 13:38] VITALS: BP 151/90; PULSE 72; RESP 16; TEMP 36; O2SAT 99; BMI 39.6
--- NOTE | 2023-04-07 15:14 | EDS_ITS ---
HPI <Deedee Armando RN - Last Filed: 04/07/23 15:43> History of Present Illness Chief Complaint: Dizziness Informant: patient Onset/Context/Timing Onset: Yesterday Timing: Waxes and wanes Current Severity: Gone Maximum Severity: Mild Worsened by: Activity Relieved by: Rest Narrative Narrative: Patient presents to the ED for dizziness beginning last p.m. Patient describes a spinning. Patient reports history of vertigo. Patient also concerned due to her blood sugar being 358 last p.m. Reports was 258 today at 1300. Prior similar symptoms: Yes Recent Illness/Hospitalization: No PFSH <Deedee Armando RN - Last Filed: 04/07/23 15:43> [facility] Medical History (Updated 04/07/23 @ 16:[address] Ronald Fierro MD) Asthma Bipolar 1 disorder Diabetes Hyperlipidemia Hypertension Home Medications simvastatin 20 mg tablet 20 mg PO QHS cholesterol 06/28/18 [History Last Taken 07/17/18] albuterol sulfate 90 mcg/actuation aerosol inhaler (Proventil HFA) 2 puff inhalation Q4H PRN PRN Sob &/Or Wheezing 07/18/18 [History Last Taken 07/18/18] fluoxetine 20 mg capsule 20 mg PO DAILY depression 07/18/18 [History Last Taken 07/17/18] metformin 500 mg tablet 500 mg PO BID #20 tabs 05/25/22 [Rx Last Taken Unknown] ondansetron 4 mg disintegrating tablet 4 mg PO Q8H PRN PRN Nausea #7 tabs 08/24/22 [Rx Last Taken Unknown] ondansetron HCl 8 mg tablet 8 mg PO Q8H PRN nausea and vomiting #14 tabs 11/05/22 [Rx Last Taken Unknown] benzonatate 200 mg capsule 200 mg PO TID PRN cough #20 caps 01/04/23 [Rx Last Taken Unknown] budesonide-formoterol HFA 80 mcg-4.5 mcg/actuation aerosol inhaler (Symbicort) 2 puff inhalation BID #10.2 grams 01/04/23 [Rx Last Taken Unknown] furosemide 20 mg tablet (Lasix) 20 mg PO DAILY #5 tabs 02/10/23 [Rx Last Taken Unknown] Allergy/AdvReac Type Severity Reaction Status Date / Time Penicillins AdvReac Vomiting Verified 04/07/23 13:39 Surgical History Hx of breast surgery Hx of cholecystectomy Hx of tubal ligation Social History Smoking Status: Never smoker ROS <Deedee Armando RN - Last Filed: 04/07/23 15:43> ROS ED Constitutional Constitutional ED: Reports other Details: Dizziness ; Denies chills or fever(s) Eyes Eyes: Denies blurry vision, change in vision or diplopia ENT ENT ED: Reports other; Denies ear pain, rhinorrhea or sore throat Cardiovascular Cardiovascular: Denies chest pain, orthopnea or palpitations Respiratory/Chest Respiratory/Chest: Reports cough; Denies dyspnea, dyspnea on exertion or orthopnea Gastrointestinal Gastrointestinal: Denies abdominal pain, diarrhea, nausea or vomiting Genitourinary Genitourinary ED: Denies dysuria Musculoskeletal Musculoskeletal: Denies arthralgias or myalgias Integumentary Denies rash Neurologic Neurologic: Reports other; Denies headache(s), paresthesias or weakness Psychiatric Psychiatric: Denies anxiety EXAM <Deedee Armando RN - Last Filed: 04/07/23 15:43> Physical Exam Const Vital Signs: 04/07/23 13:38 04/07/23 14:03 04/07/23 15:49 Temperature 96.8 F L Temperature Source Temporal Pulse Rate 72 62 Respiratory Rate 16 15 Respiratory Effort Normal Non-Labored Respiratory Pattern Normal Blood Pressure 151/90 H 126/74 H Blood Pressure Mean 110 91 Pulse Ox 99 97 Oxygen Delivery Method Room Air Positive well nourished and well developed General Appearance ED: well developed and NAD; Negative for diaphoretic HEENT Reports moist mucous membranes Negative for trauma Eyes PERRL and EOMs intact bilaterally Neck No no lymphadenopathy and supple General: Negative for tenderness Chest Wall Negative for inspection of chest normal or palpation of chest normal Resp normal respiratory effort and clear to auscultation bilaterally Resp Narrative: Patient reports dry chronic cough due to asthma. Cardio regular rate, regular rhythm, S1 normal heart sound and S2 normal heart sound GI normal to inspection, nondistended, normoactive bowel sounds and non-tender Palpation: soft Extremity normal to inspection Extremity Narrative: Mild bilateral, nonpitting pedal edema. General Extremety ED: Yes edema General Extremity: edema Neuro oriented x3 Neuro Narrative: Reports dizziness. Describes as spinning sensation. Motor Exam: strength 5/5 throughout Psych mental status grossly normal Skin no rashes or lesions noted <Dr. Ronald Fierro MD - Last Filed: 04/07/23 16:59> Physical Exam Const Vital Signs: 04/07/23 13:38 04/07/23 14:03 04/07/23 15:49 Temperature 96.8 F L Temperature Source Temporal Pulse Rate 72 62 Respiratory Rate 16 15 Respiratory Effort Normal Non-Labored Respiratory Pattern Normal Blood Pressure 151/90 H 126/74 H Blood Pressure Mean 110 91 Pulse Ox 99 97 Oxygen Delivery Method Room Air MDM <Deedee Armando RN - Last Filed: 04/07/23 15:43> [facility] Narrative Medical decision making narrative: Bedside blood glucose will be obtained. No neurological deficits noted to warrant head CT. History & Record Review Discussion w/independent historian: Patient Lab Data Attestation: I reviewed the patient's lab results. Lab results narrative: BGT 88. Labs: Laboratory Results - last 24 hr 04/07/23 15:16 POC Glucose 88 Treatment and Re-Evaluation :: BGT 88. Patient reports dizziness/vertigo symptoms have resolved. Patient will be instructed to monitor blood glucose 3 times a day and record log. Plan of care discussed with patient. Patient agreeable. Patient to be discharged home. <Dr. Ronald Fierro MD - Last Filed: 04/07/23 16:59> [facility] Narrative Medical decision making narrative: Bedside blood glucose will be obtained. No neurological deficits noted to warrant head CT. I have personally performed a face to face assessment of the patient and have reviewed the SILAS Note. I performed a substantive portion of the visit including all aspects of the following. My vanessa findings include: History is remarkable for transient vertigo with change in position earlier today. She also reports elevated blood sugar. Patient not compliant. She denied double vision, blurred vision loss of vision. [place] ringing ears decreased hearing. No trouble speech or swallowing. No trouble with coordination or balance. She denies urologic symptoms. Exam is heavyset woman appears no distress. HEENT exam is unremarkable. There is no nystagmus. Pupils equal round reactive. Extraocular is intact. Sclera is anicteric. Cup-to-disc ratio normal. No papilledema. Negative eye askew test. Negative hands test. Neck is supple. There is no carotid bruits. Heart is regular. Rate is normal. There is no murmur, gallop or rub. Lungs are clear to auscultation. Alert oriented x 3. Cranials 2 through 12 intact. Motor is 5/5. Sensation intact. DTRs are 1-2+ bicep, brachialis, tricep, patella and ankle. There is no clonus Babinski sign noted. There is no dysmetria. Gait was observed and not ataxic. Darling-Hallpike maneuver was negative. Medical Decision Making suspect patient had transient vertigo. She has had that in the past. Will obtain her blood sugar. Her workup was unremarkable. He was discharged to home at the time of discharge she asked for a work excuse. She was given a note that she was seen in the emergency department. Other additions or changes: [None] Lab Data Labs: Laboratory Results - last 24 hr 04/07/23 15:16 POC Glucose 88 Discharge Plan Triage Chief Complaint: Dizziness ED Provider: Ronald Fierro Dx/Rx/DC Orders Clinical Impression: Vertigo, Chronic airway obstruction, Bipolar 1 disorder, Hx of type 2 diabetes mellitus Instructions: Diabetes Type 2 Ch, ED Vertigo, Unspecified Prescriptions: No Action ondansetron HCl 8 mg tablet 8 mg PO Q8H PRN (Reason: nausea and vomiting) Qty: 14 0RF simvastatin 20 tablet 20 mg PO QHS albuterol sulfate [Proventil HFA] 6.7 GM HFA aerosol inhaler 2 puff inhalation Q4H PRN PRN (Reason: Sob &/Or Wheezing) fluoxetine 20 MG capsule 20 mg PO DAILY Patient Comments: TAKE 1 CAPSULE BY MOUTH DAILY metformin 500 mg tablet 500 mg PO BID Qty: 20 0RF ondansetron 4 mg tablet,disintegrating 4 mg PO Q8H PRN PRN (Reason: Nausea) Qty: 7 0RF budesonide-formoterol [Symbicort] 80-4.5 mcg/actuation HFA aerosol inhaler 2 puff inhalation BID Qty: 10.2 0RF benzonatate 200 mg capsule 200 mg PO TID PRN (Reason: cough) Qty: 20 0RF furosemide [Lasix] 20 mg tablet 20 mg PO DAILY Qty: 5 0RF Primary Care Provider: [facility] Malgor[facility] Barron Referrals: [facility] Malgorzata Barron [Primary Care Provider] - Activity Restrictions/Additional Instructions: Monitor blood sugars 3 times a day and maintain a log. Follow-up with primary care provider in 1 week. Disposition Disposition: Home, Self Care Discharge Date/Time: 04/07/23 15:50
[2023-04-07 15:33] LABS: Bedside Glucose 88 mg/dL (74-106)
[2023-04-07 15:49] VITALS: BP 126/74; PULSE 62; RESP 15; O2SAT 97
--- OUTSIDE RECORDS SUMMARY | 2023-04-07 18:52 | XMS RPT_ITS | CCD ---
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 cm [facility] Encounters Encounter Date Encounter Type Care Provider Facility Start: 03-12-2023 End: 03-12-2023 ambulatory Facility:[facility] Start: 02-05-2023 End: 02-05-2023 ambulatory Facility:[facility] Start: 02-05-2023 End: 02-05-2023 Patient encounter procedure Suze Arguelles DEVULCANIZER OPERATOR.[facility] Work Phone: [facility] Care Procedures Date Procedure Procedure Detail Performing Clinician Start: 10-29-2022 COVID & INFLUENZA A/ B & RSV NAAT, ROUTINE Katherine Hubbard APRN.[facility] Work Phone: Start: 10-29-2022 Iadna respiratry pro be & rev trnscr 3-5 targets Katherine Hubbard APRN.PATIENT CLERICAL ASSISTANT Work Phone: Start: 10-29-2022 Sars-cov-2 detection by dna/rna Katherine Hubbard APRN.[facility] Work Phone: Start: 10-29-2022 Urnls dip stick/tabl et rgnt auto w/o microscopy Katherine Hubbard APRN.[facility] Work Phone: Start: 01-16-2022 Screening for malign ant neoplasm of colon Brunilda Quintanilla Start: 01-15-2022 End: 01-15-2022 Screening mammography Brunilda Quintanilla Start: 09-23-2021 Hysteroscopy endomet rial ablation Sridhar Velasquez Start: 06-19-2021 End: 06-19-2021 Gynecologic examination Brunilda Quintanilla Start: 06-19-2021 End: 06-19-2021 Screening for malignant neoplasm of colon Brunilda Quintanilla Start: 08-03-2020 Radiologic exam ches t single view Dawood Davalos PATIENT CLERICAL ASSISTANT Work Phone: Start: 08-03-2020 Ecg routine ecg w/le ast 12 lds w/i&r Dawood Davalos PATIENT CLERICAL ASSISTANT Work Phone: Start: 08-03-2020 Urnls dip stick/tabl et reagent auto microscopy Dawood Davalos PATIENT CLERICAL ASSISTANT Work Phone: Start: 08-03-2020 End: 08-03-2020 Hepatic function panel Dawood Davalos PATIENT CLERICAL ASSISTANT Work Phone: Start: 08-03-2020 LIGHT GREEN TOP Dawood Davalos PATIENT CLERICAL ASSISTANT Work Phone: Start: 08-03-2020 RAINBOW DRAW Dawood Davalos CN P Work Phone: Start: 08-03-2020 End: 08-03-2020 Blood count complete auto&auto difrntl wbc Dawood Davalos PATIENT CLERICAL ASSISTANT Work Phone: Start: 09-11-2019 Mammography Jumana Sophia fan DO Work Phone: Start: 04-29-2019 Standard chest X-ray Na art [facility] Work Phone: Start: 04-29-2019 LIGHT BLUE TOP Fabricio Aviles Work Phone: Start: 04-29-2019 LIGHT GREEN TOP Fabricio Aviles Work Phone: Start: 04-29-2019 End: 04-29-2019 RAINBOW DRAW Fabricio [facility] Work Phone: Start: 04-29-2019 Basic metabolic 2000 panel - Serum or Plasma Fabricio [facility]iles Work Phone: Start: 04-29-2019 Choriogonadotropin.b eta subunit ( test) [Presence] in Serum or Plasma Fabricio [facility] Work Phone: Start: 04-29-2019 Complete blood count with white cell differential, automated Fabricio Aviles Work Phone: Start: 04-29-2019 Complete blood count with white cell differential, manual Fabricio Aviles Work Phone: Start: 04-29-2019 Hepatic function 200 0 panel - Serum or Plasma Fabricio [facility] Work Phone: Start: 04-29-2019 Lipase [Enzymatic activity/volume] in Serum or Plasma Fabricio [facility] Work Phone: Start: 04-29-2019 Influenza virus A AN D B antigen assay Fabricio [facility] Work Phone: Start: 04-29-2019 Urinalysis Fabricio [facility] Work Phone: Start: 04-29-2019 URINE CONTAINER Fabricio [facility] Work Phone: Start: 04-29-2019 URINE CONTRERAS CONTAINER Na art [facility] Work Phone: Start: 12-06-2018 Dup-scan xtr veins complete bilateral study Merle Muir Work Phone: Start: 12-06-2018 Glucose [Mass/volume ] in Blood Gabe Wilkins Work Phone: Start: 12-06-2018 Mra neck w/o &w/cont rast material Merle Muir Work Phone: Start: 12-06-2018 End: 12-06-2018 Lipid 1996 panel - Serum or Plasma Merle Muir Work Phone: Start: 12-06-2018 Glucose [Mass/volume ] in Blood Gabe Wilkins Work Phone: Start: 09-22-2018 Lipid 1996 panel - S ricki or Plasma Katherine Hubbard APRN.CNP Work Phone: Plan of Treatment Date Care Activity Detail Author Start: 10-15-2025 DIABETES SCREEN DIABETES SCREEN [facility] Start: 10-15-2025 Diabetes Screening Diabetes Screening [facility] Start: 12-07-2023 Lipid 1996 panel - Serum or Plasma Lipid Screening [facility] Start: 09-23-2023 HPV TESTING HPV TESTING [facility] Start: 09-23-2023 Lipid 1996 panel - Serum or Plasma Lipid Screening [facility] Start: 09-23-2023 LIPID SCREEN LIPID SCREEN [facility] Start: 09-23-2023 PAP TESTING PAP TESTING [facility] Start: 08-02-2023 [facility]HECK [facility] Start: 01-07-2023 Ophthalmic examination and evaluation COMPLETE EYE EXAM [facility] Start: 10-30-2022 Covid-19 Vaccine ( season) Covid-19 Vaccine () [facility] Start: 10-30-2022 Influenza vaccination [facility] Start: 07-28-2022 RECHECK 20 RECHECK 20 [facility] Start: 07-28-2022 [facility] Start: 07-27-2022 CBC W Auto Differential panel - Blood lab [facility] Start: 07-27-2022 Ferritin [Mass/volume] in Serum or Plasma [facility] Start: 07-27-2022 hemoglobin A1c + average glucose, QN, blood [facility] Start: 07-27-2022 Iron panel - Serum or Plasma lab [facility] Start: 07-16-2022 RECHECK 20 RECHECK 20 [facility] Start: 2022 SHINGRIX VACCINE (1 of 2) SHINGRIX VACCINE (1 of 2) [facility] Start: 05-07-2022 PROBLEM PROBLEM [employer] Start: 05-07-2022 XR, ankle, 3 or more view [facility]rad [facility] Start: 05-07-2022 XR, foot, 3 or more view [facility] Start: 05-07-2022 hydrocodone 5 mg-acetaminophen 325 mg tablet [facility] Start: 03-27-2022 MEDICAL MARIJUANA 15 MEDICAL MARIJUANA 15 [facility] Start: 01-30-2022 VIRTUAL UC VISIT 5 VIRTUAL UC VISIT 5 [facility] Start: 01-30-2022 benzonatate 100 mg capsule [facility] Start: 01-15-2022 RECHECK 20 RECHECK 20 [facility] Start: 01-15-2022 FFD mammogram Breast - bilateral Screening [facility]rad [facility] Start: 01-15-2022 Hemoglobin.gastrointestinal [Presence] in Stool by Rapid immunoassay [facility] Start: 01-15-2022 [facility] Start: 01-05-2022 [facility] visit new patient NEW PATIENT 20 [place] - [facility] Start: 11-10-2021 [facility] Start: 11-10-2021 PROBLEM PROBLEM [facility] Start: 10-30-2021 [facility] visit new patient NEW PATIENT 20 [place] - [facility] Start: 10-30-2021 Influenza vaccination [facility] Start: 10-23-2021 CBC W Auto Differential panel - Blood [facility] Start: 10-23-2021 POST OP 5 POST OP 5 [facility] Start: 09-22-2021 DIABETES SCREEN DIABETES SCREEN [facility] Start: 09-18-2021 RECHECK 20 RECHECK 20 [employer] Start: 09-02-2021 PROBLEM PROBLEM [facility] Start: 09-02-2021 influenza virus A + B and SARS CoV 2 and SARS-related CoV RNA panel, ARISTIDES+probe, respiratory specimen [facility] Start: 09-02-2021 cyclobenzaprine 10 mg tablet [facility] Start: 08-28-2021 BMP, serum or plasma [facility] [employer] [facility] Start: 08-28-2021 CBC W Auto Differential panel - Blood [facility] Start: 08-28-2021 EKG study [facility]:Ekg Start: 08-28-2021 hysteroscopy, with endometrial ablation (SURG) [facility] Start: 08-28-2021 XR Chest 2 Views [facility] Start: 08-28-2021 PAD 20 PAD 20 [facility] Start: 08-28-2021 PRE OP 10 PRE OP 10 [facility] Start: 08-25-2021 [facility] visit new patient NEW PATIENT 20 [employer] Start: 07-30-2021 YEARLY 10 YEARLY 10 [employer] Start: 07-24-2021 RECHECK 45 RECHECK 45 [facility] Start: 07-22-2021 [facility] visit new patient NEW PATIENT 15 [place] - [facility] Start: 07-17-2021 RECHECK 45 RECHECK 45 [facility] Start: 07-10-2021 RECHECK 45 RECHECK 45 [facility] Start: 07-03-2021 RECHECK 45 RECHECK 45 [facility] Start: 07-02-2021 TROUBLE 10 TROUBLE 10 [facility] Start: 07-02-2021 CBC W Auto Differential panel - Blood [facility] Start: 07-02-2021 Choriogonadotropin ( test) [Presence] in Urine [facility] Start: 07-02-2021 US Pelvis transvaginal [facility]us[facility] Start: 06-26-2021 RECHECK 45 RECHECK 45 [facility] Start: 06-19-2021 RECHECK 45 RECHECK 45 [facility] Start: 06-19-2021 RECHECK 20 RECHECK 20 [employer] Start: 06-19-2021 CBC W Auto Differential panel - Blood [facility] Start: 06-19-2021 ferritin, serum or plasma [facility] Start: 06-19-2021 hemoglobin A1c + average glucose, QN, blood [facility] Start: 06-19-2021 iron panel, serum or plasma [facility] Start: 06-19-2021 Patient encounter procedure [facility] Start: 12-18-2020 COVID-19 Vaccine (3 - Booster for Moderna series) COVID-19 Vaccine (3 - Booster for Moderna series) [facility] Start: 10-30-2020 Influenza vaccination [facility] Start: 09-12-2020 COVID-19 VACCINE (3 - Booster for Moderna series) COVID-19 VACCINE (3 - Booster for Moderna series) [facility] Start: 09-12-2020 COVID-19 VACCINE (3 - Moderna series) COVID-19 VACCINE (3 - Moderna series) [facility] Start: 09-10-[address] [facility] Start: 09-10-2020 Screening for malignant neoplasm of breast Mammogram [facility] Start: 09-10-2020 Screening mammography Mammogram [facility] Start: 2017 COLOGUARD (FIT-DNA) COLOGUARD (FIT-DNA) [facility] Start: 2017 Colonoscopy COLONOSCOPY [facility] Start: 2017 COLORECTAL CANCER SCREENING COLORECTAL CANCER SCREENING [facility] Start: [address] COLONOGRAPHY [facility] Start: 2017 FECAL OCCULT BLOOD FECAL OCCULT BLOOD [facility] Start: 2017 SIGMOIDOSCOPY SIGMOIDOSCOPY [facility] Start: 06-15-1991 Urine microalbumin profile [facility] Start: 1990 Hepatitis C screening Hepatitis C Screening [facility] Start: 06-15-1987 HIV screening HIV Screening [facility] Start: 1984 Depression screening using PHQ-9 (Patient Health Questionnaire 9) score [facility] Start: 06-15-1975 History and physical examination, annual for health maintenance Wellness Visit [facility] Start: 1972 HEPATITIS B (1 of 3 - 3-dose series) HEPATITIS B (1 of 3 - 3-dose series) [facility] Start: 1972 Hepatitis B Vaccine (1 of 3 - 3-dose series) Hepatitis B Vaccine (1 of 3 - 3-dose series) [facility] Start: 1972 Screening for malignant neoplasm of cervix PAP SMEAR [facility] Start: 1972 Screening for malignant neoplasm of colon [facility] Start: 1972 Screening mammography [facility] Start: 1972 Tetanus vaccination [facility] End: 08-03-2020 Bacteria identified in Unspecified specimen by Aerobe culture Urine Aerobic Culture Microbiology Routine Once for 1 Occurrences starting 08/03/2020 until 08/03/2020 [facility] Immunizations Immunization Date Immunization Notes Care Provider Lilia zaragoza 07-18-2020 SARS-COV-2 (COVID-19 ) vaccine, mRNA, spike protein, LNP, preservative free, 100 mcg/0.5mL dose Brunilda Quintanilla [facility] 06-20-2020 SARS-COV-2 (COVID-19 ) vaccine, mRNA, spike protein, LNP, preservative free, 100 mcg/0.5mL dose Brunilda Quintanilla [facility] 12-06-2018 influenza, injectabl e, quadrivalent, contains preservative Brunilda Quintanilla [facility] 12-06-2018 influenza, injectabl e, quadrivalent, preservative free Generic Medone Vj [facility] 12-06-2018 influenza virus vaccine, unspecified formulation Katherine Hubbard APRN.CNP Work Phone: [facility] Payers Date Payer Category Payer Medicaid [id number] 2018 Medicaid [facility] [facility] [facility] [place] [facility] [place]xx 2018-Present [id number] 2018 Medicaid [id number] 2018 Medicaid [employer] [facility] [place] [facility] [id number] 2018-Present [id number] 2018 Medicaid [id number] 1972 Unknown [id number] 1972 Unknown [id number] 1972 Unknown [id number] 1972 Unknown [id number] 1972 Unknown [id number] 1972 Unknown [id number] 1972 Unknown [id number] 1972 Unknown [id number] 1972 Unknown [id number] Social History Date Type Detail Facility Start: 12-06-2018 End: 08-18-2022 Tobacco smoking status FLIS Never smoker [facility] Start: 12-06-2018 End: 02-11-2021 Alcohol intake Lifetime non-drinker (finding) [facility] Start: 12-06-2018 End: 04-29-2019 History SDOH Alcohol Frequency 1 [facility] Start: 1970 Sex Assigned At Not on file [facility] Start: 08-03-2020 End: 08-18-2022 Tobacco use and exposure Never used [facility] Exposure to SARS-CoV -2 (event) Not sure [facility] Start: 03-29-2020 End: 02-05-2023 Alcohol intake Current non-drinker of alcohol (finding) [facility] Start: 02-04-2020 End: 10-10-2022 History of Social function [facility] Start: 02-04-2020 End: 10-10-2022 Tobacco use panel [facility] Adult Depression Scr eening Assessment [address] [facility] Medical Equipment Procedure Code Equipment Code Equipment Original Text Equi pment Identifier Dates Procedure Implant ([id number]) Clinical Notes 02-11-2007 to 03-12-2023 Suze Arguelles APRN.PATIENT CLERICAL ASSISTANT - 02/05/2023 12:34 PM ESTPatient InstructionsPranayla- Katherine Casey APRN.PATIENT CLERICAL ASSISTANT - 12/12/2022 1:18 PM EDTTelephone Encounter - Magaly Flowers, HALLIE - 10/31/2022 9:03 AM EDT Note Date & Type Note Facility 03-12-2023 Note HNO ID: [id number] Author: JOSR HOLLINS PA Service: ? Author Type: Physician Furniture Manager Type: Progress Notes Filed: 03/12/2023 13:21 Note Text: This note was created using NoteWriter. Subjective Rosetta Obrien is a 52 year old female. HPI 52-year-old female presents for urinary frequency, urgency, dysuria x 3 days. She denies any blood in the urine. No abdominal pain. She reports a little bit of back pain. No fevers or vomiting. She does have history of UTIs in the past. Patient is also complaining of URI symptoms that started this morning. She has congestion, mild cough, sore throat. No fever. She states her boyfriend was recently sick with similar symptoms. No other complaint. PAST MEDICAL HISTORY Diagnosis Date Allergic rhinitis, cause unspecified Depression 09/26/2010 Morbid obesity (HCC) 07/24/2011 Other combinations of endocrine dysfunction Sprain of neck Unspecified asthma(493.90) PAST SURGICAL HISTORY Procedure Laterality Date LAPAROSCOPIC APPENDECTOMY 09/20/2009 LAPS SURG CHOLECYSTECTOMY W/CHOLANGIOGRAPHY IOC - non draining LIG/TRNSXJ FLP TUBE ABDL/VAG APPR UNI/BI Tubal ligation TONSILLECTOMY PRIMARY/SECONDARY Tonsillectomy ALLERGIES Penicillins MEDICATIONS meclizine (ANTIVERT) 25 mg tab Take 1 tablet by mouth two times a day as needed (dizziness). cyclobenzaprine (FLEXERIL) 5 mg tablet Take 1 tablet by mouth two times a day as needed for muscle spasm. metFORMIN (GLUCOPHAGE) 500 mg tablet Take 500 mg by mouth twice daily. losartan (COZAAR) 25 mg tablet Take 25 mg by mouth once daily. For 30 days prazosin (MINIPRESS) 1 mg cap TAKE 2 CAPSULES BY MOUTH ONCE DAILY AT BEDTIME glipiZIDE (GLUCOTROL XL) 5 mg 24 hr tablet Take by mouth. ARIPiprazole (ABILIFY) 5 mg tablet Take 5 mg by mouth once daily. For 30 days acetaminophen (TYLENOL EXTRA STRENGTH) 500 mg tablet Take 1 tablet by mouth every 6 hours as needed for pain. Ipratropium (ATROVENT) 17 mcg/actuation inhaler Inhale 2 Puffs as instructed every 6 hours. triamcinolone acetonide (KENALOG) 0.1 % cream Apply 1 application to affected area twice daily. Apply to affected area. Location: neck fluticasone (FLONASE) 50 mcg/actuation nasal spray Use 1 Pearl in each nostril once daily. mometasone-formoterol (DULERA) 100-5 mcg/actuation inhaler Inhale 2 Puffs as instructed twice daily. albuterol HFA (PROAIR HFA) 90 mcg/actuation inhaler Inhale 2 Puffs as instructed every 4 hours as needed for Wheezing/Shortness of Breath. meloxicam (MOBIC) 15 mg tablet Take 1 tablet by mouth once daily. Take with food. FLUoxetine (PROZAC) 20 mg capsule Take 1 capsule by mouth once daily. loratadine 10 mg cap Take 1 capsule by mouth once daily. Melatonin 5 mg cap Take 1 capsule by mouth daily at bedtime. Norethindrone, Contraceptive, (ORTHO MICRONOR) 0.35 mg tablet Take 1 tablet by mouth once daily. simvastatin (ZOCOR) 20 mg tablet Take 1 tablet by mouth daily at bedtime. acetaminophen (TYLENOL) 325 mg tablet Take 325 mg by mouth every 6 hours as needed. Take two tablets every 6 hours as needed for pain. omeprazole (PRILOSEC) 20 mg capsule Take 1 capsule by mouth daily before breakfast. 1/2 hr before meal. nitrofurantoin monohydrate and macrocrystal (MACROBID) 100 mg capsule Take 1 capsule by mouth two times a day for 5 days. FAMILY HISTORY Problem Relation Age of Onset COPD Father Coronary Artery Disease Father of [place] Cancer Mother breast cancer Diabetes Mother Heart Brother Breast Cancer Sister No Known Problems Maternal Grandmother No Known Problems Maternal Grandfather No Known Problems Paternal Grandmother No Known Problems Paternal Grandfather No Known Problems Son No Known Problems Son No Known Problems Daughter No Known Problems Daughter No Known Problems Daughter No Known Problems Daughter Adopted Social History Tobacco Use Smoking status: Never Smokeless tobacco: Never Substance Use Topics Alcohol use: No Drug use: No Review of Systems Constitutional: Negative for chills and fever. HENT: Positive for congestion and sore throat. Negative for ear pain. Respiratory: Positive for cough. Negative for shortness of breath. Cardiovascular: Negative for chest pain. Gastrointestinal: Negative for diarrhea and vomiting. Genitourinary: Positive for dysuria, frequency and urgency. Negative for flank pain and hematuria. Objective BP 138/84 Pulse 75 Temp 36.3 ?C (97.3 ?F) (Tympanic) Resp 18 Wt 86.8 kg (191 lb 6.4 oz) LMP 01/25/2023 (Approximate) SpO2 98% BMI 40.00 kg/m? Physical Exam Vitals and nursing note reviewed. Constitutional: General: She is not in acute distress. Appearance: Normal appearance. She is not toxic-appearing. HENT: Right Ear: Tympanic membrane and ear canal normal. Left Ear: Tympanic membrane and ear canal normal. Nose: Nose normal. Mouth/Throat: Mouth: Mucous membranes are moist. Pharynx: Posterior oroph (more content not included)... [facility] 02-05-2023 Note HNO ID: [id number] Author: Suze Arguelles APRN.PATIENT CLERICAL ASSISTANT Service: ? Author Type: Nurse Practitioner Type: Progress Notes Filed: 02/05/2023 12:37 PM Note Text: This note was created using qunb. Subjective Rosetta Obrien is a 52 year old female. Presents for right lower leg pain and swelling Acute onset 3 weeks ago No trauma or injury HPI Review of Systems Objective BP 128/86 Pulse 69 Temp 36.2 ?C (97.2 ?F) Resp 18 Wt 83.9 kg (185 lb) LMP 01/25/2023 (Approximate) SpO2 99% BMI 38.67 kg/m? Physical Exam Assessment and Plan ASSESSMENT/PLAN: 1. Pain and swelling of right lower leg - ICD9: 729.5, 729.81, ICD10: M79.661, M79.89 X 3 weeks +swelling and pain Discussed concerns for possible DVT and inability to rule out dvt Referred to ED since cannot obtain here today Suze Arguelles APRN.PATIENT CLERICAL ASSISTANT [facility] 02-05-2023 History of Presen t illness Narrative This note was created using qunb. Subjective Rosetta Obrien is a 52 year old female. Presents for right lower leg pain and swelling Acute onset 3 weeks ago No trauma or injury HPI Review of Systems Objective BP 128/86 Pulse 69 Temp 36.2 C (97.2 F) Resp 18 Wt 83.9 kg (185 lb) LMP 01/25/2023 (Approximate) SpO2 99% BMI 38.67 kg/m Physical Exam Assessment and Plan ASSESSMENT/PLAN: 1. Pain and swelling of right lower leg - ICD9: 729.5, 729.81, ICD10: M79.661, M79.89 X 3 weeks +swelling and pain Discussed concerns for possible DVT and inability to rule out dvt Referred to ED since cannot obtain here today Suze Arguelles APRN.PATIENT CLERICAL ASSISTANT documented in this encounter [facility] 12-12-2022 Note HNO ID: [id number] Author: Katherine Hubbard APRN.PATIENT CLERICAL ASSISTANT Service: ? Author Type: Nurse Practitioner Type: Progress Notes Filed: 12/12/2022 1:40 PM Note Text: Subjective Dizziness Associated symptoms include dizziness. Pertinent negatives include no fever. Rosetta Obrien is a 52 year old female who presents with dizziness, headache, and a swollen foot. She states she has a history of vertigo and is out of the medication. She also has some pain and muscle spasms in her right lower leg and also some swelling in her right foot. She states her foot hurts but she did not injure it. She denies nausea or vomiting. She has not had a fever. Blood sugar check today was 150, which was a little higher than normal for her. Review of Systems Constitutional: Negative for chills, fever and malaise/fatigue. HENT: Negative for congestion, ear pain and sore throat. Respiratory: Negative for cough. Cardiovascular: Negative. Musculoskeletal: Positive for joint pain. Negative for falls and myalgias. Skin: Negative for itching and rash. Neurological: Positive for dizziness. BP 114/78 Pulse 67 Temp 36.7 ?C (98 ?F) Resp 20 Wt 85.5 kg (188 lb 9.6 oz) LMP 12/08/2022 (Approximate) SpO2 99% BMI 39.42 kg/m? PAST MEDICAL HISTORY Diagnosis Date Allergic rhinitis, cause unspecified Depression 09/26/2010 Morbid obesity (HCC) 07/24/2011 Other combinations of endocrine dysfunction Sprain of neck Unspecified asthma(493.90) PAST SURGICAL HISTORY Procedure Laterality Date LAPAROSCOPIC APPENDECTOMY 09/20/2009 LAPS SURG CHOLECYSTECTOMY W/CHOLANGIOGRAPHY IOC - non draining LIG/TRNSXJ FLP TUBE ABDL/VAG APPR UNI/BI Tubal ligation TONSILLECTOMY PRIMARY/SECONDARY Tonsillectomy ALLERGIES Penicillins MEDICATIONS acetaminophen (TYLENOL EXTRA STRENGTH) 500 mg tablet Take 1 tablet by mouth every 6 hours as needed for pain. acetaminophen (TYLENOL) 325 mg tablet Take 325 mg by mouth every 6 hours as needed. Take two tablets every 6 hours as needed for pain. albuterol HFA (PROAIR HFA) 90 mcg/actuation inhaler Inhale 2 Puffs as instructed every 4 hours as needed for Wheezing/Shortness of Breath. ARIPiprazole (ABILIFY) 5 mg tablet Take 5 mg by mouth once daily. For 30 days cyclobenzaprine (FLEXERIL) 5 mg tablet Take 1 tablet by mouth two times a day as needed for muscle spasm. FLUoxetine (PROZAC) 20 mg capsule Take 1 capsule by mouth once daily. fluticasone (FLONASE) 50 mcg/actuation nasal spray Use 1 Pearl in each nostril once daily. glipiZIDE (GLUCOTROL XL) 5 mg 24 hr tablet Take by mouth. Ipratropium (ATROVENT) 17 mcg/actuation inhaler Inhale 2 Puffs as instructed every 6 hours. loratadine 10 mg cap Take 1 capsule by mouth once daily. losartan (COZAAR) 25 mg tablet Take 25 mg by mouth once daily. For 30 days meclizine (ANTIVERT) 25 mg tab Take 1 tablet by mouth two times a day as needed (dizziness). Melatonin 5 mg cap Take 1 capsule by mouth daily at bedtime. meloxicam (MOBIC) 15 mg tablet Take 1 tablet by mouth once daily. Take with food. metFORMIN (GLUCOPHAGE) 500 mg tablet Take 500 mg by mouth twice daily. mometasone-formoterol (DULERA) 100-5 mcg/actuation inhaler Inhale 2 Puffs as instructed twice daily. Norethindrone, Contraceptive, (ORTHO MICRONOR) 0.35 mg tablet Take 1 tablet by mouth once daily. omeprazole (PRILOSEC) 20 mg capsule Take 1 capsule by mouth daily before breakfast. 1/2 hr before meal. prazosin (MINIPRESS) 1 mg cap TAKE 2 CAPSULES BY MOUTH ONCE DAILY AT BEDTIME simvastatin (ZOCOR) 20 mg tablet Take 1 tablet by mouth daily at bedtime. triamcinolone acetonide (KENALOG) 0.1 % cream Apply 1 application to affected area twice daily. Apply to affected area. Location: neck FAMILY HISTORY Problem Relation Age of Onset COPD Father Coronary Artery Disease Father of [place] Cancer Mother breast cancer Diabetes Mother Heart Brother Breast Cancer Sister No Known Problems Maternal Grandmother No Known Problems Maternal Grandfather No Known Problems Paternal Grandmother No Known Problems Paternal Grandfather No Known Problems Son No Known Problems Son No Known Problems Daughter No Known Problems Daughter No Known Problems Daughter No Known Problems Daughter Adopted Social History Tobacco Use Smoking status: Never Smokeless tobacco: Never Substance Use Topics Alcohol use: No Drug use: No Objective Physical Exam Vitals and nursing note reviewed. Constitutional: Appearance: Normal appearance. HENT: Right Ear: Tympanic membrane, ear canal and external ear normal. Left Ear: Tympanic membrane, ear canal and external ear normal. Nose: Nose normal. Mouth/Throat: Pharynx: Uvula midline. No oropharyngeal exudate or posterior oropharyngeal erythema. Eyes: General: Lids are normal. Gaze aligned appropriately. Extraocular Movements: Extraocular movements intact. Right eye: Normal extraocular motion and n (more content not included)... [facility] 12-12-2022 Instructions Katherine Hubbard APRN.PATIENT CLERICAL ASSISTANT - 12/12/2022 1:34 PM EDT ASSESSMENT/PLAN: 1. Acute foot pain, right - ICD9: 729.5, ICD10: M79.671 (primary diagnosis) - XR FOOT GENERAL 3V AP/LAT/OBL RIGHT- return Wednesday for xray. Rest, Ice, Elevate foot. 2. Vertigo - ICD9: 780.4, ICD10: R42 - MECLIZINE 25 MG TABLET 3. Muscle spasm of right leg - ICD9: 728.85, ICD10: M62.838 - CYCLOBENZAPRINE 5 MG TABLET - Follow-up with your PCP in 3-5 days if symptoms have not improved or sooner if symptoms worsen - Discussed red flags and need for immediate medical evaluation if any occur. - Discussed supportive care treatment with fluids, rest and analgesia. - Discussed expected course of illness Katherine Hubbard APRN.PATIENT CLERICAL ASSISTANT documented in this encounter [facility] 12-12-2022 History of Presen t illness Narrative Subjective Dizziness Associated symptoms include dizziness. Pertinent negatives include no fever. Rosetta Obrien is a 52 year old female who presents with dizziness, headache, and a swollen foot. She states she has a history of vertigo and is out of the medication. She also has some pain and muscle spasms in her right lower leg and also some swelling in her right foot. She states her foot hurts but she did not injure it. She denies nausea or vomiting. She has not had a fever. Blood sugar check today was 150, which was a little higher than normal for her. Review of Systems Constitutional: Negative for chills, fever and malaise/fatigue. HENT: Negative for congestion, ear pain and sore throat. Respiratory: Negative for cough. Cardiovascular: Negative. Musculoskeletal: Positive for joint pain. Negative for falls and myalgias. Skin: Negative for itching and rash. Neurological: Positive for dizziness. BP 114/78 Pulse 67 Temp 36.7 C (98 F) Resp 20 Wt 85.5 kg (188 lb 9.6 oz) LMP 12/08/2022 (Approximate) SpO2 99% BMI 39.42 kg/m PAST MEDICAL HISTORY Diagnosis Date Allergic rhinitis, cause unspecified Depression 09/26/2010 Morbid obesity (HCC) 07/24/2011 Other combinations of endocrine dysfunction Sprain of neck Unspecified asthma(493.90) PAST SURGICAL HISTORY Procedure Laterality Date LAPAROSCOPIC APPENDECTOMY 09/20/2009 LAPS SURG CHOLECYSTECTOMY W/CHOLANGIOGRAPHY IOC - non draining LIG/TRNSXJ FLP TUBE ABDL/VAG APPR UNI/BI Tubal ligation TONSILLECTOMY PRIMARY/SECONDARY <AGE 12 Tonsillectomy ALLERGIES Penicillins MEDICATIONS acetaminophen (TYLENOL EXTRA STRENGTH) 500 mg tablet Take 1 tablet by mouth every 6 hours as needed for pain. acetaminophen (TYLENOL) 325 mg tablet Take 325 mg by mouth every 6 hours as needed. Take two tablets every 6 hours as needed for pain. albuterol HFA (PROAIR HFA) 90 mcg/actuation inhaler Inhale 2 Puffs as instructed every 4 hours as needed for Wheezing/Shortness of Breath. ARIPiprazole (ABILIFY) 5 mg tablet Take 5 mg by mouth once daily. For 30 days cyclobenzaprine (FLEXERIL) 5 mg tablet Take 1 tablet by mouth two times a day as needed for muscle spasm. FLUoxetine (PROZAC) 20 mg capsule Take 1 capsule by mouth once daily. fluticasone (FLONASE) 50 mcg/actuation nasal spray Use 1 Pearl in each nostril once daily. glipiZIDE (GLUCOTROL XL) 5 mg 24 hr tablet Take by mouth. Ipratropium (ATROVENT) 17 mcg/actuation inhaler Inhale 2 Puffs as instructed every 6 hours. loratadine 10 mg cap Take 1 capsule by mouth once daily. losartan (COZAAR) 25 mg tablet Take 25 mg by mouth once daily. For 30 days meclizine (ANTIVERT) 25 mg tab Take 1 tablet by mouth two times a day as needed (dizziness). Melatonin 5 mg cap Take 1 capsule by mouth daily at bedtime. meloxicam (MOBIC) 15 mg tablet Take 1 tablet by mouth once daily. Take with food. metFORMIN (GLUCOPHAGE) 500 mg tablet Take 500 mg by mouth twice daily. mometasone-formoterol (DULERA) 100-5 mcg/actuation inhaler Inhale 2 Puffs as instructed twice daily. Norethindrone, Contraceptive, (ORTHO MICRONOR) 0.35 mg tablet Take 1 tablet by mouth once daily. omeprazole (PRILOSEC) 20 mg capsule Take 1 capsule by mouth daily before breakfast. 1/2 hr before meal. prazosin (MINIPRESS) 1 mg cap TAKE 2 CAPSULES BY MOUTH ONCE DAILY AT BEDTIME simvastatin (ZOCOR) 20 mg tablet Take 1 tablet by mouth daily at bedtime. triamcinolone acetonide (KENALOG) 0.1 % cream Apply 1 application to affected area twice daily. Apply to affected area. Location: neck FAMILY HISTORY Problem Relation Age of Onset COPD Father Coronary Artery Disease Father of [place] Cancer Mother breast cancer Diabetes Mother Heart Brother Breast Cancer Sister No Known Problems Maternal Grandmother No Known Problems Maternal Grandfather No Known Problems Paternal Grandmother No Known Problems Paternal Grandfather No Known Problems Son No Known Problems Son No Known Problems Daughter No Known Problems Daughter No Known Problems Daughter No Known Problems Daughter Adopted Social History Tobacco Use Smoking status: Never Smokeless tobacco: Never Substance Use Topics Alcohol use: No Drug use: No Objective Physical Exam Vitals and nursing note reviewed. Constitutional: Appearance: Normal appearance. HENT: Right Ear: Tympanic membrane, ear canal and external ear normal. Left Ear: Tympanic membrane, ear canal and external ear normal. Nose: Nose normal. Mouth/Throat: Pharynx: Uvula midline. No oropharyngeal exudate or posterior oropharyngeal erythema. Eyes: General: Lids are normal. Gaze aligned appropriately. Extraocular Movements: Extraocular movements intact. Right eye: Normal extraocular motion and no nystagmus. Left eye: Normal extraocular motion and no nystagmus. Pupils: Pupils are equal, round, and reactive to light. Cardiovascular: Rate and Rhythm: Normal rate and regular rhythm. Heart sounds: Normal heart sounds. Pulmonary: Effort: Pulmonary effort is normal. No respiratory distress. Breath sounds: Normal breath sounds. No wheezing or rales. Musculoskeletal: Cervical back: Neck supple. Feet: Lymphadenopathy: Cervical: No cervical adenopathy. Skin: General: Skin is warm and dry. Findings: No erythema or rash. Neurological: Mental Status: She is alert and oriented to person, place, and time. Motor: Motor function is intact. No weakness or tremor. Gait: Gait is intact. ASSESSMENT/PLAN: 1. Acute foot pain, right - ICD9: 729.5, ICD10: M79.671 (primary diagnosis) - XR FOOT GENERAL 3V AP/LAT/OBL RIGHT- return Wednesday for xray. Rest, Ice, Elevate foot. 2. Vertigo - ICD9: 780.4, ICD10: R42 - MECLIZINE 25 MG TABLET 3. Muscle spasm of right leg - ICD9: 728.85, ICD10: M62.838 - CYCLOBENZAPRINE 5 MG TABLET - Follow-up with your PCP in 3-5 days if symptoms have not improved or sooner if symptoms worsen - Discussed red flags and need for immediate medical evaluation if any occur. - Discussed supportive care treatment with fluids, rest and analgesia. - Discussed expected course of illness Katherine Hubbard APRN.PATIENT CLERICAL ASSISTANT documented in this encounter [facility] 10-31-2022 Miscellaneous Notes Patient returned call, notified of results as listed below, verbalized understanding. Magaly Flowers MA Left VM instructing patient to return call to receive results. Mgaaly Flowers MA ----- Message from Katherine Hubbard APRN.CNP sent at 10/31/2022 8:15 AM EDT ----- Urine culture did not show clear evidence of infection, however it appears sample may have been contaminated with skin bacteria during collection. She may continue to take antibiotic if it has been helpful. Recommend follow up with PCP to ensure hematuria has resolved. Katherine Hubbard CNP documented in this encounter [facility] 10-30-2022 Miscellaneous Notes Pt called in asking for results from yesterdays tests: Good news! You tested negative for COVID, Influenza, and RSV. If you were tested because you were having symptoms, please monitor these symptoms and for any worrisome symptoms, please call your primary care provider or schedule a visit with [facility]. Macrobid prescribed. Antibiotic was prescribed for blood, protein, and leukocytes in the UA. Still waiting on urine culture results. documented in this encounter [facility] 10-29-2022 Note HNO ID: [id number] Author: Katherine Hubbard APRN.CNP Service: ? Author Type: Nurse Practitioner Type: Progress Notes Filed: 10/29/2022 4:16 PM Note Text: This note was created using NoteWriter. Subjective Rosetta Obrien is a 52 year old female. Patient presents with two days of headache, left flank pain, nausea, and fatigue. Patient also endorses mild cough, chills, bilateral ear pain, and sore throat. She denies any chest pain or shortness of breath. She is requesting a COVID and flu test as these symptoms are similar to when she last had the flu. The history is provided by the patient. Headache Associated symptoms include nausea. Pertinent negatives include no fever, no shortness of breath and no vomiting. Review of Systems Constitutional: Positive for activity change, chills and fatigue. Negative for fever. HENT: Positive for congestion, ear pain, sinus pressure, sinus pain and sore throat. Respiratory: Positive for cough. Negative for shortness of breath. Cardiovascular: Negative for chest pain. Gastrointestinal: Positive for abdominal pain (left upper quadrant) and nausea. Negative for vomiting. Genitourinary: Positive for flank pain. Negative for decreased urine volume, difficulty urinating, dysuria, frequency and hematuria. Neurological: Positive for headaches. All other systems reviewed and are negative. Objective BP 136/82 Pulse 96 Temp 36.9 ?C (98.5 ?F) (Tympanic) Resp 18 Wt 82.1 kg (181 lb) LMP 11/30/2018 (Approximate) SpO2 97% BMI 37.83 kg/m? PAST MEDICAL HISTORY Diagnosis Date Allergic rhinitis, cause unspecified Depression 09/26/2010 Morbid obesity (HCC) 07/24/2011 Other combinations of endocrine dysfunction Sprain of neck Unspecified asthma(493.90) PAST SURGICAL HISTORY Procedure Laterality Date LAPAROSCOPIC APPENDECTOMY 09/20/2009 LAPS SURG CHOLECYSTECTOMY W/CHOLANGIOGRAPHY IOC - non draining LIG/TRNSXJ FLP TUBE ABDL/VAG APPR UNI/BI Tubal ligation TONSILLECTOMY PRIMARY/SECONDARY Tonsillectomy ALLERGIES Penicillins MEDICATIONS cyclobenzaprine (FLEXERIL) 10 mg tablet Take 1/2 - 1 tablet every 8 hours as needed metFORMIN (GLUCOPHAGE) 500 mg tablet Take 500 mg by mouth twice daily. losartan (COZAAR) 25 mg tablet Take 25 mg by mouth once daily. For 30 days prazosin (MINIPRESS) 1 mg cap TAKE 2 CAPSULES BY MOUTH ONCE DAILY AT BEDTIME glipiZIDE (GLUCOTROL XL) 5 mg 24 hr tablet Take by mouth. ARIPiprazole (ABILIFY) 5 mg tablet Take 5 mg by mouth once daily. For 30 days acetaminophen (TYLENOL EXTRA STRENGTH) 500 mg tablet Take 1 tablet by mouth every 6 hours as needed for pain. Ipratropium (ATROVENT) 17 mcg/actuation inhaler Inhale 2 Puffs as instructed every 6 hours. triamcinolone acetonide (KENALOG) 0.1 % cream Apply 1 application to affected area twice daily. Apply to affected area. Location: neck fluticasone (FLONASE) 50 mcg/actuation nasal spray Use 1 Pearl in each nostril once daily. mometasone-formoterol (DULERA) 100-5 mcg/actuation inhaler Inhale 2 Puffs as instructed twice daily. albuterol HFA (PROAIR HFA) 90 mcg/actuation inhaler Inhale 2 Puffs as instructed every 4 hours as needed for Wheezing/Shortness of Breath. meloxicam (MOBIC) 15 mg tablet Take 1 tablet by mouth once daily. Take with food. FLUoxetine (PROZAC) 20 mg capsule Take 1 capsule by mouth once daily. loratadine 10 mg cap Take 1 capsule by mouth once daily. Melatonin 5 mg cap Take 1 capsule by mouth daily at bedtime. Norethindrone, Contraceptive, (ORTHO MICRONOR) 0.35 mg tablet Take 1 tablet by mouth once daily. simvastatin (ZOCOR) 20 mg tablet Take 1 tablet by mouth daily at bedtime. acetaminophen (TYLENOL) 325 mg tablet Take 325 mg by mouth every 6 hours as needed. Take two tablets every 6 hours as needed for pain. omeprazole (PRILOSEC) 20 mg capsule Take 1 capsule by mouth daily before breakfast. 1/2 hr before meal. nitrofurantoin monohydrate and macrocrystal (MACROBID) 100 mg capsule Take 1 capsule by mouth twice daily for 5 days. FAMILY HISTORY Problem Relation Age of Onset COPD Father Coronary Artery Disease Father of [place] Cancer Mother breast cancer Diabetes Mother Heart Brother Breast Cancer Sister No Known Problems Maternal Grandmother No Known Problems Maternal Grandfather No Known Problems Paternal Grandmother No Known Problems Paternal Grandfather No Known Problems Son No Known Problems Son No Known Problems Daughter No Known Problems Daughter No Known Problems Daughter No Known Problems Daughter Adopted Social History Tobacco Use Smoking status: Never Smokeless tobacco: Never Substance Use Topics Alcohol use: No Drug use: No Physical Exam Vitals reviewed. Constitutional: General: She is not in acute distress. Appearance: Normal appearance. She is normal weight. She is ill-appearing. She is not toxic-appearing. HENT: Right Ear: Tympanic membrane, ear (more content not included)... [facility] 10-29-2022 Instructions Katherine Hubbard APRN.PATIENT CLERICAL ASSISTANT - 10/29/2022 4:16 PM EDT ASSESSMENT/PLAN: 1. Urinary tract infection with hematuria, site unspecified - ICD9: 599.0, 599.70, ICD10: N39.0, R31.9 (primary diagnosis) acute - UA positive for mauri esterase, hematuria, and proteinuria - Send urine for culture - Begin treatment with Macrobid 100 mg BID for 5 days - Patient education for prevention given - Referral sent to establish PCP - ESTABLISH WITH PRIMARY CARE - NEW PATIENT - URINE CULTURE 2. Flank pain - ICD9: 789.09, ICD10: R10.9 - see above - UA DIP, URINE (POC) - URINE CULTURE 3. Headache, unspecified headache type - ICD9: 784.0, ICD10: R51.9 - swab for flu and COVID sent - will call patient with results - OTC cough and cold meds as needed - COVID & INFLUENZA A/B & RSV NAAT, ROUTINE - COVID NAAT, ROUTINE - ROUTINE FLU A/B + RSV E Woody [employer] CAMP NURSE Student TEACHING PROVIDER (Physician/PA/DEVULCANIZER OPERATOR) NOTE OF PERSONAL INVOLVEMENT IN CARE: I have personally seen and examined the patient and performed the medical decision-making components. I have reviewed the Advanced Practice Registered Nurse (DEVULCANIZER OPERATOR) Student's documentation and verified the findings in the note as written. Any additions or changes are noted in bold/italics. Signature: Katherine Hubbard Date: 10/29/2022 Time: 4:15 PM documented in this encounter [facility] 10-29-2022 History of Presen t illness Narrative This note was created using NoteWriter. Subjective Rosetta Obrien is a 52 year old female. Patient presents with two days of headache, left flank pain, nausea, and fatigue. Patient also endorses mild cough, chills, bilateral ear pain, and sore throat. She denies any chest pain or shortness of breath. She is requesting a COVID and flu test as these symptoms are similar to when she last had the flu. The history is provided by the patient. Headache Associated symptoms include nausea. Pertinent negatives include no fever, no shortness of breath and no vomiting. Review of Systems Constitutional: Positive for activity change, chills and fatigue. Negative for fever. HENT: Positive for congestion, ear pain, sinus pressure, sinus pain and sore throat. Respiratory: Positive for cough. Negative for shortness of breath. Cardiovascular: Negative for chest pain. Gastrointestinal: Positive for abdominal pain (left upper quadrant) and nausea. Negative for vomiting. Genitourinary: Positive for flank pain. Negative for decreased urine volume, difficulty urinating, dysuria, frequency and hematuria. Neurological: Positive for headaches. All other systems reviewed and are negative. Objective BP 136/82 Pulse 96 Temp 36.9 C (98.5 F) (Tympanic) Resp 18 Wt 82.1 kg (181 lb) LMP 11/30/2018 (Approximate) SpO2 97% BMI 37.83 kg/m PAST MEDICAL HISTORY Diagnosis Date Allergic rhinitis, cause unspecified Depression 09/26/2010 Morbid obesity (HCC) 07/24/2011 Other combinations of endocrine dysfunction Sprain of neck Unspecified asthma(493.90) PAST SURGICAL HISTORY Procedure Laterality Date LAPAROSCOPIC APPENDECTOMY 09/20/2009 LAPS SURG CHOLECYSTECTOMY W/CHOLANGIOGRAPHY IOC - non draining LIG/TRNSXJ FLP TUBE ABDL/VAG APPR UNI/BI Tubal ligation TONSILLECTOMY PRIMARY/SECONDARY <AGE 12 Tonsillectomy ALLERGIES Penicillins MEDICATIONS cyclobenzaprine (FLEXERIL) 10 mg tablet Take 1/2 - 1 tablet every 8 hours as needed metFORMIN (GLUCOPHAGE) 500 mg tablet Take 500 mg by mouth twice daily. losartan (COZAAR) 25 mg tablet Take 25 mg by mouth once daily. For 30 days prazosin (MINIPRESS) 1 mg cap TAKE 2 CAPSULES BY MOUTH ONCE DAILY AT BEDTIME glipiZIDE (GLUCOTROL XL) 5 mg 24 hr tablet Take by mouth. ARIPiprazole (ABILIFY) 5 mg tablet Take 5 mg by mouth once daily. For 30 days acetaminophen (TYLENOL EXTRA STRENGTH) 500 mg tablet Take 1 tablet by mouth every 6 hours as needed for pain. Ipratropium (ATROVENT) 17 mcg/actuation inhaler Inhale 2 Puffs as instructed every 6 hours. triamcinolone acetonide (KENALOG) 0.1 % cream Apply 1 application to affected area twice daily. Apply to affected area. Location: neck fluticasone (FLONASE) 50 mcg/actuation nasal spray Use 1 Pearl in each nostril once daily. mometasone-formoterol (DULERA) 100-5 mcg/actuation inhaler Inhale 2 Puffs as instructed twice daily. albuterol HFA (PROAIR HFA) 90 mcg/actuation inhaler Inhale 2 Puffs as instructed every 4 hours as needed for Wheezing/Shortness of Breath. meloxicam (MOBIC) 15 mg tablet Take 1 tablet by mouth once daily. Take with food. FLUoxetine (PROZAC) 20 mg capsule Take 1 capsule by mouth once daily. loratadine 10 mg cap Take 1 capsule by mouth once daily. Melatonin 5 mg cap Take 1 capsule by mouth daily at bedtime. Norethindrone, Contraceptive, (ORTHO MICRONOR) 0.35 mg tablet Take 1 tablet by mouth once daily. simvastatin (ZOCOR) 20 mg tablet Take 1 tablet by mouth daily at bedtime. acetaminophen (TYLENOL) 325 mg tablet Take 325 mg by mouth every 6 hours as needed. Take two tablets every 6 hours as needed for pain. omeprazole (PRILOSEC) 20 mg capsule Take 1 capsule by mouth daily before breakfast. 1/2 hr before meal. nitrofurantoin monohydrate and macrocrystal (MACROBID) 100 mg capsule Take 1 capsule by mouth twice daily for 5 days. FAMILY HISTORY Problem Relation Age of Onset COPD Father Coronary Artery Disease Father of [place] Cancer Mother breast cancer Diabetes Mother Heart Brother Breast Cancer Sister No Known Problems Maternal Grandmother No Known Problems Maternal Grandfather No Known Problems Paternal Grandmother No Known Problems Paternal Grandfather No Known Problems Son No Known Problems Son No Known Problems Daughter No Known Problems Daughter No Known Problems Daughter No Known Problems Daughter Adopted Social History Tobacco Use Smoking status: Never Smokeless tobacco: Never Substance Use Topics Alcohol use: No Drug use: No Physical Exam Vitals reviewed. Constitutional: General: She is not in acute distress. Appearance: Normal appearance. She is normal weight. She is ill-appearing. She is not toxic-appearing. HENT: Right Ear: Tympanic membrane, ear canal and external ear normal. No swelling or tenderness. There is no impacted cerumen. Tympanic membrane is not perforated, erythematous, retracted or bulging. Left Ear: Tympanic membrane, ear canal and external ear normal. No swelling or tenderness. There is no impacted cerumen. Tympanic membrane is not perforated, erythematous, retracted or bulging. Nose: Congestion present. Right Sinus: No maxillary sinus tenderness or frontal sinus tenderness. Left Sinus: No maxillary sinus tenderness or frontal sinus tenderness. Mouth/Throat: Pharynx: Oropharynx is clear. Uvula midline. No pharyngeal swelling, oropharyngeal exudate, posterior oropharyngeal erythema or uvula swelling. Tonsils: No tonsillar exudate or tonsillar abscesses. Cardiovascular: Rate and Rhythm: Normal rate and regular rhythm. Pulmonary: Effort: Pulmonary effort is normal. No respiratory distress. Breath sounds: Normal breath sounds. Abdominal: Palpations: Abdomen is soft. Tenderness: There is abdominal tenderness in the left upper quadrant. There is left CVA tenderness. There is no right CVA tenderness. Neurological: General: No focal deficit present. Mental Status: She is alert and oriented to person, place, and time. Mental status is at baseline. Psychiatric: Mood and Affect: Mood normal. Behavior: Behavior normal. Thought Content: Thought content normal. Judgment: Judgment normal. Assessment and Plan ASSESSMENT/PLAN: 1. Urinary tract infection with hematuria, site unspecified - ICD9: 599.0, 599.70, ICD10: N39.0, R31.9 (primary diagnosis) acute - UA positive for mauri esterase, hematuria, and proteinuria - Send urine for culture - Begin treatment with Macrobid 100 mg BID for 5 days - Patient education for prevention given - Referral sent to establish PCP - ESTABLISH WITH PRIMARY CARE - NEW PATIENT - URINE CULTURE 2. Flank pain - ICD9: 789.09, ICD10: R10.9 - see above - UA DIP, URINE (POC) - URINE CULTURE 3. Headache, unspecified headache type - ICD9: 784.0, ICD10: R51.9 - swab for flu and COVID sent - will call patient with results - OTC cough and cold meds as needed - COVID & INFLUENZA A/B & RSV NAAT, ROUTINE - COVID NAAT, ROUTINE - ROUTINE FLU A/B + RSV E Woody [employer] CAMP NURSE Student TEACHING PROVIDER (Physician/PA/DEVULCANIZER OPERATOR) NOTE OF PERSONAL INVOLVEMENT IN CARE: I have personally seen and examined the patient and performed the medical decision-making components. I have reviewed the Advanced Practice Registered Nurse (DEVULCANIZER OPERATOR) Student's documentation and verified the findings in the note as written. Any additions or changes are noted in bold/italics. Signature: Katherine Hubbard Date: 10/29/2022 Time: 4:15 PM documented in this encounter [facility] 10-10-2022 Note HNO ID: [id number] Author: Luz Elena Jovel APRN.PATIENT CLERICAL ASSISTANT Service: ? Author Type: Nurse Practitioner Type: Progress Notes Filed: 10/10/2022 1:43 PM Note Text: Subjective The history is provided by the patient. No foreign languages professor was used. HPI Rosetta Obrien is a 52 year old female who presents today for CC of lower back pain with radiation down right leg. This started in the past several days. She denies any known injury or trauma, she has not used any treatment or medication. She denies any loss of bowel or bladder function. BP 147/86 Pulse 74 Temp 36.1 ?C (97 ?F) Resp 18 Wt 83.5 kg (184 lb) LMP 11/30/2018 (Approximate) SpO2 99% BMI 38.46 kg/m? Social History Tobacco Use Smoking status: Never Smokeless tobacco: Never Substance Use Topics Alcohol use: No Drug use: No PAST MEDICAL HISTORY Diagnosis Date Allergic rhinitis, cause unspecified Depression 09/26/2010 Morbid obesity (HCC) 07/24/2011 Other combinations of endocrine dysfunction Sprain of neck Unspecified asthma(493.90) I have confirmed and edited as necessary, the [facility] Review of Systems Constitutional: Negative for chills and fever. Musculoskeletal: Positive for back pain. Negative for joint pain and myalgias. Skin: Negative for itching and rash. All other systems reviewed and are negative. Objective Physical Exam Vitals and nursing note reviewed. Cardiovascular: Pulses: Dorsalis pedis pulses are 2+ on the right side and 2+ on the left side. Posterior tibial pulses are 2+ on the right side and 2+ on the left side. Pulmonary: Effort: Pulmonary effort is normal. Musculoskeletal: Cervical back: Normal. Thoracic back: Normal. Lumbar back: Tenderness present. No edema or bony tenderness. Decreased range of motion. Negative right straight leg raise test and negative left straight leg raise test. Back: Comments: Area of discomfort marked. Skin: General: Skin is warm and dry. Neurological: Mental Status: She is alert and oriented to person, place, and time. Sensory: Sensation is intact. Motor: Motor function is intact. Coordination: Coordination is intact. Deep Tendon Reflexes: Reflexes are normal and symmetric. Psychiatric: Mood and Affect: Affect normal. ASSESSMENT/PLAN: 1. Acute right-sided low back pain with right-sided sciatica - ICD9: 724.2, 724.3, ICD10: M54.41 Sciatica - Ice for localized tenderness - Warm moist heat for 20 min three times a day - NSAIDS- see orders - Muscle relaxant- see orders - Patient given instructions use of medications as ordered, intermittent rest, back care exercise program, and proper lifting techniques Diagnosis and treatment plan were discussed and questions were answered to the patient's satisfaction. Pt acknowledged understanding of concepts and follow up plan. Specific signs and symptoms that would indicate the need for higher level of care were discussed in detail warranting prompt ER evaluation. Luz Elena Jovel APRN.CNP [facility] 10-10-2022 Instructions Luz Elena Jovel APRN.CNP - 10/10/2022 1:33 PM EDT Naproxen as ordered - do not use meloxicam with this, may use tylenol Flexeril as ordered Stretches as given Follow up with PCP documented in this encounter [facility] 10-10-2022 History of Presen t illness Narrative Images from the original note were not included. Subjective The history is provided by the patient. No foreign languages professor was used. LALI Rosetta Obrien is a 52 year old female who presents today for CC of lower back pain with radiation down right leg. This started in the past several days. She denies any known injury or trauma, she has not used any treatment or medication. She denies any loss of bowel or bladder function. BP 147/86 Pulse 74 Temp 36.1 C (97 F) Resp 18 Wt 83.5 kg (184 lb) LMP 11/30/2018 (Approximate) SpO2 99% BMI 38.46 kg/m Social History Tobacco Use Smoking status: Never Smokeless tobacco: Never Substance Use Topics Alcohol use: No Drug use: No PAST MEDICAL HISTORY Diagnosis Date Allergic rhinitis, cause unspecified Depression 09/26/2010 Morbid obesity (HCC) 07/24/2011 Other combinations of endocrine dysfunction Sprain of neck Unspecified asthma(493.90) I have confirmed and edited as necessary, the [facility] Review of Systems Constitutional: Negative for chills and fever. Musculoskeletal: Positive for back pain. Negative for joint pain and myalgias. Skin: Negative for itching and rash. All other systems reviewed and are negative. Objective Physical Exam Vitals and nursing note reviewed. Cardiovascular: Pulses: Dorsalis pedis pulses are 2+ on the right side and 2+ on the left side. Posterior tibial pulses are 2+ on the right side and 2+ on the left side. Pulmonary: Effort: Pulmonary effort is normal. Musculoskeletal: Cervical back: Normal. Thoracic back: Normal. Lumbar back: Tenderness present. No edema or bony tenderness. Decreased range of motion. Negative right straight leg raise test and negative left straight leg raise test. Back: Comments: Area of discomfort marked. Skin: General: Skin is warm and dry. Neurological: Mental Status: She is alert and oriented to person, place, and time. Sensory: Sensation is intact. Motor: Motor function is intact. Coordination: Coordination is intact. Deep Tendon Reflexes: Reflexes are normal and symmetric. Psychiatric: Mood and Affect: Affect normal. ASSESSMENT/PLAN: 1. Acute right-sided low back pain with right-sided sciatica - ICD9: 724.2, 724.3, ICD10: M54.41 Sciatica - Ice for localized tenderness - Warm moist heat for 20 min three times a day - NSAIDS- see orders - Muscle relaxant- see orders - Patient given instructions use of medications as ordered, intermittent rest, back care exercise program, and proper lifting techniques Diagnosis and treatment plan were discussed and questions were answered to the patient's satisfaction. Pt acknowledged understanding of concepts and follow up plan. Specific signs and symptoms that would indicate the need for higher level of care were discussed in detail warranting prompt ER evaluation. Luz Elena Jovel APRN.GUERRERO documented in this encounter [facility] 08-18-2022 Note HNO ID: [id number] Author: Emmanuelle Sexton PA-C Service: ? Author Type: Physician Furniture Manager Type: Progress Notes Filed: 08/18/2022 1:47 PM Note Text: This note was created using [employer]. Subjective Rosetta Obrien is a 52 year old female. Patient presents with a chief complaint of right leg pain. She works at [employer] and she was taking in order out to a car when she bumped into the side of the car with her right leg. The car was parked. She started getting pain a couple of hours after the incident. She states she has had problems with this leg off and on prior to this incident with cramping and this feels similar. Denies history of DVT or PE. No chest pain or shortness of breath. No swelling in the leg. She does have scoliosis in her back and does get back pain that radiates down her leg but this feels different. She has tried ibuprofen 800 mg without relief. Review of Systems Musculoskeletal: Right leg pain PAST MEDICAL HISTORY Diagnosis Date Allergic rhinitis, cause unspecified Depression 09/26/2010 Morbid obesity (HCC) 07/24/2011 Other combinations of endocrine dysfunction Sprain of neck Unspecified asthma(493.90) Current Outpatient Medications Medication Sig Dispense Refill glipiZIDE (GLUCOTROL XL) 5 mg 24 hr tablet Take by mouth. Ipratropium (ATROVENT) 17 mcg/actuation inhaler Inhale 2 Puffs as instructed every 6 hours. 1 Inhaler 11 mometasone-formoterol (DULERA) 100-5 mcg/actuation inhaler Inhale 2 Puffs as instructed twice daily. 1 Inhaler 11 albuterol HFA (PROAIR HFA) 90 mcg/actuation inhaler Inhale 2 Puffs as instructed every 4 hours as needed for Wheezing/Shortness of Breath. 1 Inhaler 2 FLUoxetine (PROZAC) 20 mg capsule Take 1 capsule by mouth once daily. 30 capsule 12 loratadine 10 mg cap Take 1 capsule by mouth once daily. 30 capsule 5 Melatonin 5 mg cap Take 1 capsule by mouth daily at bedtime. 30 capsule 5 simvastatin (ZOCOR) 20 mg tablet Take 1 tablet by mouth daily at bedtime. 90 tablet 3 acetaminophen (TYLENOL) 325 mg tablet Take 325 mg by mouth every 6 hours as needed. Take two tablets every 6 hours as needed for pain. omeprazole (PRILOSEC) 20 mg capsule Take 1 capsule by mouth daily before breakfast. 1/2 hr before meal. 30 capsule 11 metFORMIN (GLUCOPHAGE) 500 mg tablet Take 500 mg by mouth twice daily. losartan (COZAAR) 25 mg tablet Take 25 mg by mouth once daily. For 30 days prazosin (MINIPRESS) 1 mg cap TAKE 2 CAPSULES BY MOUTH ONCE DAILY AT BEDTIME ARIPiprazole (ABILIFY) 5 mg tablet Take 5 mg by mouth once daily. For 30 days acetaminophen (TYLENOL EXTRA STRENGTH) 500 mg tablet Take 1 tablet by mouth every 6 hours as needed for pain. 30 tablet 0 cyclobenzaprine (FLEXERIL) 10 mg tablet Take 1 tablet by mouth twice daily as needed for muscle spasm. 10 tablet 0 triamcinolone acetonide (KENALOG) 0.1 % cream Apply 1 application to affected area twice daily. Apply to affected area. Location: neck 45 g 0 fluticasone (FLONASE) 50 mcg/actuation nasal spray Use 1 Pearl in each nostril once daily. 1 Bottle 11 meloxicam (MOBIC) 15 mg tablet Take 1 tablet by mouth once daily. Take with food. 30 tablet 2 cyclobenzaprine (FLEXERIL) 5 mg tablet Take 1 tablet by mouth three times daily as needed. 30 tablet 2 Norethindrone, Contraceptive, (ORTHO MICRONOR) 0.35 mg tablet Take 1 tablet by mouth once daily. 3 Package 4 cyclobenzaprine (FLEXERIL) 5 mg tablet Take 5 mg by mouth three times daily as needed. miSOPROStol (CYTOTEC) 200 mcg tablet Insert 2 tables vaginally night prior to procedure and 2 tablets morning of procedure. 4 tablet 0 No current facility-administered medications for this visit. PAST SURGICAL HISTORY Procedure Laterality Date LAPAROSCOPIC APPENDECTOMY 09/20/2009 LAPS SURG CHOLECYSTECTOMY W/CHOLANGIOGRAPHY IOC - non draining LIG/TRNSXJ FLP TUBE ABDL/VAG APPR UNI/BI Tubal ligation TONSILLECTOMY PRIMARY/SECONDARY Tonsillectomy FAMILY HISTORY Problem Relation Age of Onset COPD Father Coronary Artery Disease Father of [place] Cancer Mother breast cancer Diabetes Mother Heart Brother Breast Cancer Sister No Known Problems Maternal Grandmother No Known Problems Maternal Grandfather No Known Problems Paternal Grandmother No Known Problems Paternal Grandfather No Known Problems Son No Known Problems Son No Known Problems Daughter No Known Problems Daughter No Known Problems Daughter No Known Problems Daughter Adopted Social History Tobacco Use Smoking status: Never Smokeless tobacco: Never Substance Use Topics Alcohol use: No Drug use: No Objective BP 140/84 Pulse 75 Temp 36.7 ?C (98.1 ?F) Resp 16 Ht 147.3 cm (4' 10 ) Wt 86.2 kg (190 lb) LMP 11/30/2018 (Approximate) BMI 39.71 kg/m? Physical Exam Vitals reviewed. Constitutional: Appearance: Normal appearance. HENT: Head: Normocephalic and atraumatic. 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 [facility] 05-25-2022 Note HNO ID: [id number] Author: Jorge Dow MD Service: ? Author Type: Physician Type: Progress Notes Filed: 05/25/2022 3:47 PM Note Text: Patient presents with: Chest Pain HPI: Patient moved back from [facility] recently. She is homeless and without her medications including diabetes and blood pressure meds. She has had mid chest pain since this morning. She has slight shortness of breath and cough. MEDICATIONS: out of date. Ipratropium (ATROVENT) 17 mcg/actuation inhaler Inhale 2 Puffs as instructed every 6 hours. triamcinolone acetonide (KENALOG) 0.1 % cream Apply 1 application to affected area twice daily. Apply to affected area. Location: neck fluticasone (FLONASE) 50 mcg/actuation nasal spray Use 1 Pearl in each nostril once daily. mometasone-formoterol (DULERA) 100-5 mcg/actuation inhaler Inhale 2 Puffs as instructed twice daily. albuterol HFA (PROAIR HFA) 90 mcg/actuation inhaler Inhale 2 Puffs as instructed every 4 hours as needed for Wheezing/Shortness of Breath. meloxicam (MOBIC) 15 mg tablet Take 1 tablet by mouth once daily. Take with food. cyclobenzaprine (FLEXERIL) 5 mg tablet Take 1 tablet by mouth three times daily as needed. FLUoxetine (PROZAC) 20 mg capsule Take 1 capsule by mouth once daily. loratadine 10 mg cap Take 1 capsule by mouth once daily. Melatonin 5 mg cap Take 1 capsule by mouth daily at bedtime. Norethindrone, Contraceptive, (ORTHO MICRONOR) 0.35 mg tablet Take 1 tablet by mouth once daily. simvastatin (ZOCOR) 20 mg tablet Take 1 tablet by mouth daily at bedtime. cyclobenzaprine (FLEXERIL) 5 mg tablet Take 5 mg by mouth three times daily as needed. acetaminophen (TYLENOL) 325 mg tablet Take 325 mg by mouth every 6 hours as needed. Take two tablets every 6 hours as needed for pain. omeprazole (PRILOSEC) 20 mg capsule Take 1 capsule by mouth daily before breakfast. 1/2 hr before meal. miSOPROStol (CYTOTEC) 200 mcg tablet Insert 2 tables vaginally night prior to procedure and 2 tablets morning of procedure. ALLERGIES: ALLERGIES Allergen Reactions Penicillins VITALS: BP 180/100 Pulse 88 Temp 37.3 ?C (99.1 ?F) Resp 14 LMP 11/30/2018 (Approximate) SpO2 98% PHYSICAL EXAM: GEN: pleasant, no acute distress, alert HEENT: PERRL, EOMI, MMM NECK: supple, no lymphadenopathy, no thyromegaly HEART: regular rate, regular rhythm, no murmurs LUNGS: clear to auscultation, no wheezes or crackles, no increased WOB EXT: no clubbing, no cyanosis, no edema ASSESSMENT/PLAN: 1. Chest pain, unspecified type - ICD9: 786.50, ICD10: R07.9 Patient transported to [facility] by EMS for further evaluation and treatment. Jorge Dow MD [facility] 05-25-2022 History of Presen t illness Narrative Patient presents with: Chest Pain HPI: Patient moved back from [facility] recently. She is homeless and without her medications including diabetes and blood pressure meds. She has had mid chest pain since this morning. She has slight shortness of breath and cough. MEDICATIONS: out of date. Ipratropium (ATROVENT) 17 mcg/actuation inhaler Inhale 2 Puffs as instructed every 6 hours. triamcinolone acetonide (KENALOG) 0.1 % cream Apply 1 application to affected area twice daily. Apply to affected area. Location: neck fluticasone (FLONASE) 50 mcg/actuation nasal spray Use 1 Pearl in each nostril once daily. mometasone-formoterol (DULERA) 100-5 mcg/actuation inhaler Inhale 2 Puffs as instructed twice daily. albuterol HFA (PROAIR HFA) 90 mcg/actuation inhaler Inhale 2 Puffs as instructed every 4 hours as needed for Wheezing/Shortness of Breath. meloxicam (MOBIC) 15 mg tablet Take 1 tablet by mouth once daily. Take with food. cyclobenzaprine (FLEXERIL) 5 mg tablet Take 1 tablet by mouth three times daily as needed. FLUoxetine (PROZAC) 20 mg capsule Take 1 capsule by mouth once daily. loratadine 10 mg cap Take 1 capsule by mouth once daily. Melatonin 5 mg cap Take 1 capsule by mouth daily at bedtime. Norethindrone, Contraceptive, (ORTHO MICRONOR) 0.35 mg tablet Take 1 tablet by mouth once daily. simvastatin (ZOCOR) 20 mg tablet Take 1 tablet by mouth daily at bedtime. cyclobenzaprine (FLEXERIL) 5 mg tablet Take 5 mg by mouth three times daily as needed. acetaminophen (TYLENOL) 325 mg tablet Take 325 mg by mouth every 6 hours as needed. Take two tablets every 6 hours as needed for pain. omeprazole (PRILOSEC) 20 mg capsule Take 1 capsule by mouth daily before breakfast. 1/2 hr before meal. miSOPROStol (CYTOTEC) 200 mcg tablet Insert 2 tables vaginally night prior to procedure and 2 tablets morning of procedure. ALLERGIES: ALLERGIES Allergen Reactions Penicillins VITALS: BP 180/100 Pulse 88 Temp 37.3 C (99.1 F) Resp 14 LMP 11/30/2018 (Approximate) SpO2 98% PHYSICAL EXAM: GEN: pleasant, no acute distress, alert HEENT: PERRL, EOMI, MMM NECK: supple, no lymphadenopathy, no thyromegaly HEART: regular rate, regular rhythm, no murmurs LUNGS: clear to auscultation, no wheezes or crackles, no increased WOB EXT: no clubbing, no cyanosis, no edema ASSESSMENT/PLAN: 1. Chest pain, unspecified type - ICD9: 786.50, ICD10: R07.9 Patient transported to [facility] by EMS for further evaluation and treatment. Jorge Dow MD documented in this encounter [facility] 12-02-2022 Evaluation note* Encounter Date Assessment Date Assessment 01/30/2022 01/30/2022 13 total minutes of visit time was spent by the provider including same-day pre-visit prep, time spent with patient during the visit, and immediate post-visit time. [facility] 08-25-2022 Evaluation note* Encounter Date Assessment Date Assessment 10/23/2021 10/23/2021 Patient came in today for a routine post operative evaluation. She states she is healing well post op She denies any pain or burning after urination. No trouble voiding. Bowel movements are regular. No vaginal discharge. Patient will call with fever, signs of infection and/or increasing pain. Reviewed pathology results with her. Results are within normal limits. Advised to give the procedure a few more months to see if the ablation took care of the bleeding. She may have cramping or discomfort 3-6 months after procedure. She should see full results with possibly no bleeding or slowed bleeding at 1 year. She is to get labs drawn in 2 weeks. Will notify of results. She is to follow up in 1 year, sooner if needed. Jose Guadalupe Kirk CMA scribed the above services for Dr. Sridhar Velasquez MD. [facility] 06-30-2022 Evaluation note* Encounter Date Assessment Date Assessment 08/28/2021 08/28/2021 The patient diag nosis is abnormal uterine bleeding, dysmenorrhea, anemia, and thickened endometrium. Failed NSAID's. She is requesting definitive treatment by means of hysteroscopy, D&C, and endometrial ablation. The risks and benefits were discussed in great detail with the patient. Discussed increased risks of infection, bleeding, injury to other organs, blood clots in legs or lungs, or that surgery may not cure her pain. Alternatives were discussed in length. She understands the risks, benefits, and alternatives. She signed consent on exam. Follow up on 09/16/21 for surgery. IKristi scribed the following above services for Dr. Sridhar Velasquez. [facility] 05-12-2022 Evaluation note* Encounter Date Assessment Date Assessment 07/10/2021 07/10/2021 Today's treatmen t focused on increasing strength, decreasing pain and improving function to cont progressing towards meeting goals. Pt had slight improved tolerance to progressions today, Pt did not report as many episodes of increased pain throughout treatment. Pt exhibits increased strength according to ROM however function test a reported decline with significant decline in score. Pt notes increased pain post treatment, she would rate this a 5/10. Plan: Cont POC with increased intensity per pt tolerance. 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 goal o f Left Hip Strength: [id number], termite control servicer goal of Left Hip Strength: -[id number], care home goal of L-spine AROM: [id number], care home goal of L-spine AROM: -[id number], care home goal of L-spine AROM: -[id number], care home goal of L-spine AROM: -[id number], care home goal of Right Hip Strength: -[id number], termite control servicer goal of Right Hip Strength: -[id number], termite control servicer goal of L-spine severity: NOTE, termite control servicer goal of special tests- bilateral: NOTE, termite control servicer goal of HEP Compliance: [id number] [facility] 05-05-2022 Evaluation note* Encounter Date Assessment Date Assessment 07/03/2021 07/03/2021 Today's treatmen t focused on increasing strength, decreasing pain and improving function to cont progressing towards meeting goals. Modified treatment today due to discomfort from biopsy. Progression Pt is challenging due to Pt poor tolerance to treatment. Modified supine exercises to seated due to Pt requesting to not lay today. Pt was able to perform all standing exercises today however reported increased challenge and discomfort while performing. Plan: Cont POC with increased intensity per pt tolerance. Patient Targets Encounter Date Instructions Goals 07/03/2021 termite control servicer goal o f Left Hip Strength: -[id number], care home goal of Left Hip Strength: -[id number], care home goal of L-spine AROM: -[id number], termite control servicer goal of L-spine AROM: -[id number], care home goal of L-spine AROM: -[id number], care home goal of L-spine AROM: -[id number], care home goal of Right Hip Strength: -[id number], care home goal of Right Hip Strength: -[id number], termite control servicer goal of L-spine severity: NOTE, termite control servicer goal of special tests- bilateral: NOTE, care home goal of HEP Compliance: [id number] [facility] 05-04-2022 Evaluation note* Encounter Date Assessment Date Assessment 07/02/2021 07/02/2021 Large friable cervix was seen. Cervix was very inflamed. It was hard to visualize due to the amount of bleeding coming from the cervix. A cervical biopsy was taken at 6:00 with the most atypical surface appearance. An EMB and cervical biopsy were taken without complication. She tolerated the procedure well. A pap smear was also obtained. Transvaginal US and labs ordered. Given Ibuprofen to take as needed. Follow up in 1 month to discuss results. Kristi Kirk scribed the following above services for Dr. Sridhar Velasquez. Patient Targets Encounter Date Instructions Goals 07/02/2021 [facility] 04-28-2022 Evaluation note* Encounter Date Assessment Date Assessment 06/26/2021 06/26/2021 Today's treatmen t focused on increasing strength, decreasing pain and improving function to cont progressing towards meeting goals. Pt had poor tolerance to treatment today therfore cautious with progressions. Added standing hip strengthening for proximal stability. Pt exhibits poor range and control due to weakness. Some compensatory hip hike observed during abd, provided cuing to to improve form. Pt notes she does not tolerate laying supine well therfore provided Pt with wedge for table exercises. Added hip stretches today to addresss tightness in hip contrivuting to pain. Pt did not tolerate table exercies well and had several reports of increased pain throughout. Finished treatment with IASTM and hypervolt for pain management, pt did report decreased pain following treatment, she would rate this a 4/10. Plan: Cont POC with increased intensity per pt tolerace. Patient Targets Encounter Date Instructions Goals 06/26/2021 care home goal o f Left Hip Strength: [id number], termite control servicer goal of Left Hip Strength: [id number], termite control servicer goal of L-spine AROM: -[id number], termite control servicer goal of L-spine AROM: [id number], termite control servicer goal of L-spine AROM: -[id number], termite control servicer goal of L-spine AROM: -[id number], termite control servicer goal of Right Hip Strength: -[id number], care home goal of Right Hip Strength: -[phone], care home goal of L-spine severity: NOTE, termite control servicer goal of special tests- bilateral: NOTE, termite control servicer goal of HEP Compliance: [id number] [employer] 04-21-2022 Evaluation note No assessment recorded. Patient Targets Encounter Date Instructions Goals 06/19/2021 [employer] 06-05-2021 Miscellaneous Notes* ED Procedure Note - Seferino Oh MD - 08/03/2020 7:12 PM EDT Associated Order(s): EKG 12-lead EKG 12-lead Date/Time: 08/03/2020 7:12 PM Performed by: Seferino Oh MD Authorized by: Dawood Davalos CNP Interpreted by ED attending physician Rhythm: sinus rhythm BPM: 92 Conduction: conduction normal ST Segments: ST segments normal T Waves: T waves normal Other findings: LVH Clinical impression: abnormal ECG * ED Attestation Note - Jumana Zamora DO - 08/03/2020 6:33 PM EDT ED Attestation: I did not see this patient. However, I was personally available for consult in the ED for this patient, if the Advanced Practice Provider (SILAS) needed any assistance. The SILAS evaluated the patient independently for a complaint of Anxiety, and completed their own examination, documentation, and discharge. documented in this [id number] Emergency department Note* Pily Duff RN - 08/03/2020 6:29 PM EDT Pt reports that she was sitting at the bus stop for an hour and a half waiting for someone to come and get her when it started to feel like I couldn't breathe . Pt c/o drowsiness at this time. documented in this [id number] Hospital Discharge instructions * Instructions* Dawood Davalos CNP - 08/03/2020 Please increase your oral hydration, follow-up with your primary care physician in 3 to 7 days, return to ER for worsening symptoms or any other concerns. * Attachments The following attachments cannot be sent through Care Everywhere. * Oral Rehydration (Moroccan) documented in this [id number] History of Past illness Narrative* Problem Noted Date Resolved Date Calculus of gallbladder with out mention of cholecystitis or obstruction 02/11/2007 06/28/2018 documented as of this encounter (statuses as of 05/25/2022) [facility]12[facility]14-2007 History of Past illness Narrative* Problem Noted Date Diagnosed Date Resolved Date Calculus of gallbladder with out mention of cholecystitis or obstruction 02/11/2007 06/28/2018 documented as of this encounter (statuses as of 10/10/2022) [facility] History of Past illness Narrative* Problem Noted Date Diagnosed Date Resolved Date Calculus of gallbladder with out mention of cholecystitis or obstruction 02/11/2007 06/28/2018 documented as of this encounter (statuses as of 10/30/2022) [facility]12[facility] History of Past illness Narrative* Problem Noted Date Diagnosed Date Resolved Date Calculus of gallbladder with out mention of cholecystitis or obstruction 02/11/2007 06/28/2018 documented as of this encounter (statuses as of 10/30/2022) [facility]12[facility] History of Past illness Narrative* Problem Noted Date Diagnosed Date Resolved Date Calculus of gallbladder with out mention of cholecystitis or obstruction 02/11/2007 06/28/2018 documented as of this encounter (statuses as of 10/31/2022) [facility] History of Past illness Narrative* Problem Noted Date Diagnosed Date Resolved Date Calculus of gallbladder with out mention of cholecystitis or obstruction 02/11/2007 06/28/2018 documented as of this encounter (statuses as of 12/12/2022) [facility] History of Past illness Narrative* Problem Noted Date Diagnosed Date Resolved Date Calculus of gallbladder with out mention of cholecystitis or obstruction 02/11/2007 06/28/2018 documented as of this encounter (statuses as of 02/05/2023) [facility] Shortness of breath- Primary [facility] Diagnosis Displacement of lumbar intervertebral disc without myelopathy- [facility] Diagnosis Iron deficiency- Primary Disorders of iron metabolism [facility]* Encounter Date Assessment Date Assessment 08/28/2021 08/28/2021 Rosetta OBRIEN 51yo F 1970 [id number] DATE OF PROCEDURE: 09/16/2021 Dr Velasquez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
== END 2023-04-07 15:50 | disposition home or self-care (01) ==
PROVIDERS: Emergency Provider Emergency Medicine; Visit Provider Emergency Medicine
DX: R42 Dizziness and giddiness (principal); F31.9 Bipolar disorder, unspecified; E11.9 Type 2 diabetes mellitus without complications; J45.909 Unspecified asthma, uncomplicated; I10 Essential (primary) hypertension; E78.5 Hyperlipidemia, unspecified
CPT/HCPCS: 82962; 99282

== ENCOUNTER 2023-05-03 11:32 | Emergency (ER) | payer MEDICAID, SELFPAY ==
[2023-05-03 11:33] VITALS: BP 142/85; PULSE 81; RESP 16; TEMP 35.9; O2SAT 97; BMI 38.5
[2023-05-03 11:49] VITALS: O2SAT 96
--- NOTE | 2023-05-03 12:11 | EX.ED.DYSGE1 ---
HPI <KLEBER Umaña - Last Filed: 05/03/23 15:09> History of Present Illness Chief Complaint: Cough Narrative Narrative: Patient presenting today due to cold-like symptoms that started on Wednesday. She reports that she has had a sore throat, nasal congestion, chills, nausea, and cough. 2 days ago she did notice yellow phlegm with coughing, now her cough is nonproductive. She reports a history of asthma and has felt more wheezy, she reports her inhaler is no longer working. She reports some shortness of breath with exertion. She did have a few episodes of vomiting. She denies any fevers, abdominal pain, chest pain, history of blood clots, recent surgery/procedures/travel/immobilization. PFSH <KLEBER Umaña - Last Filed: 05/03/23 15:09> [facility] Medical History Asthma Bipolar 1 disorder Diabetes Hyperlipidemia Hypertension Home Medications simvastatin 20 mg tablet 20 mg PO QHS cholesterol 06/28/18 [History Last Taken 07/17/18] albuterol sulfate 90 mcg/actuation aerosol inhaler (Proventil HFA) 2 puff inhalation Q4H PRN PRN Sob &/Or Wheezing 07/18/18 [History Last Taken 07/18/18] fluoxetine 20 mg capsule 20 mg PO DAILY depression 07/18/18 [History Last Taken 07/17/18] metformin 500 mg tablet 500 mg PO BID #20 tabs 05/25/22 [Rx Last Taken Unknown] ondansetron 4 mg disintegrating tablet 4 mg PO Q8H PRN PRN Nausea #7 tabs 08/24/22 [Rx Last Taken Unknown] ondansetron HCl 8 mg tablet 8 mg PO Q8H PRN nausea and vomiting #14 tabs 11/05/22 [Rx Last Taken Unknown] benzonatate 200 mg capsule 200 mg PO TID PRN cough #20 caps 01/04/23 [Rx Last Taken Unknown] budesonide-formoterol HFA 80 mcg-4.5 mcg/actuation aerosol inhaler (Symbicort) 2 puff inhalation BID #10.2 grams 01/04/23 [Rx Last Taken Unknown] furosemide 20 mg tablet (Lasix) 20 mg PO DAILY #5 tabs 02/10/23 [Rx Last Taken Unknown] albuterol sulfate 90 mcg/actuation aerosol inhaler (Ventolin HFA) 1 - 2 puff inhalation Q4H PRN PRN Wheezing #1 inh 05/03/23 [Rx Last Taken Unknown] prednisone 20 mg tablet 40 mg (2 x 20 mg) PO DAILY #10 tabs 05/03/23 [Rx Last Taken Unknown] Allergy/AdvReac Type Severity Reaction Status Date / Time Penicillins AdvReac Vomiting Verified 05/03/23 11:33 Surgical History Hx of breast surgery Hx of cholecystectomy Hx of tubal ligation Social History Smoking Status: Never smoker ROS <KLEBER Umaña - Last Filed: 05/03/23 15:09> ROS ED Constitutional Constitutional ED: Reports chills; Denies fever(s) Cardiovascular Cardiovascular: Denies chest pain or palpitations Respiratory/Chest Respiratory/Chest: Reports cough, dyspnea on exertion and wheezing; Denies tachypnea Gastrointestinal Gastrointestinal: Reports nausea and vomiting; Denies abdominal pain or diarrhea Genitourinary Genitourinary ED: Denies dysuria, hematuria or urinary urgency Musculoskeletal Musculoskeletal: Denies arthralgias or myalgias Integumentary Denies rash Neurologic Neurologic: Denies weakness EXAM <KLEBER Umaña - Last Filed: 05/03/23 15:09> Physical Exam Const Vital Signs: 05/03/23 11:33 05/03/23 11:49 05/03/23 12:19 Temperature 96.6 F L Temperature Source Temporal Pulse Rate 81 72 Respiratory Rate 16 Respiratory Effort Normal Non-Labored Respiratory Pattern Blood Pressure 142/85 H Blood Pressure Mean 104 Pulse Ox 97 94 Oxygen Delivery Method Room Air Room Air Room Air 05/03/23 12:23 05/03/23 13:43 Temperature 98 F Temperature Source Pulse Rate 73 83 Respiratory Rate 16 20 H Respiratory Effort Respiratory Pattern Normal Blood Pressure 151/73 H Blood Pressure Mean 99 Pulse Ox 97 Oxygen Delivery Method Positive well nourished, well developed and no apparent distress General Appearance ED: well developed HEENT Reports normocephalic and head/scalp atraumatic Mouth ED: Yes moist mucous membranes normal Eyes PERRL and EOMs intact bilaterally Neck full ROM and supple Chest Wall inspection of chest normal Resp normal respiratory effort and clear to auscultation bilaterally Cardio regular rate and regular rhythm GI soft to palpation, non-tender, non-distended and no masses Back/Spine normal ROM and normal to inspection Extremity normal to inspection and full ROM Neuro oriented x3, CN's II-XII intact bilaterally, moves all extremities, no focal motor deficits and no sensory deficits noted Sensorium / Orientation: awake and alert Psych mental status grossly normal and thought process normal Skin no rashes or lesions noted and no wounds <Dr. Ronald Fierro MD - Last Filed: 05/03/23 15:15> Physical Exam Const Vital Signs: 05/03/23 11:33 05/03/23 11:49 05/03/23 12:19 Temperature 96.6 F L Temperature Source Temporal Pulse Rate 81 72 Respiratory Rate 16 Respiratory Effort Normal Non-Labored Respiratory Pattern Blood Pressure 142/85 H Blood Pressure Mean 104 Pulse Ox 97 94 Oxygen Delivery Method Room Air Room Air Room Air 05/03/23 12:23 05/03/23 13:43 Temperature 98 F Temperature Source Pulse Rate 73 83 Respiratory Rate 16 20 H Respiratory Effort Respiratory Pattern Normal Blood Pressure 151/73 H Blood Pressure Mean 99 Pulse Ox 97 Oxygen Delivery Method MDM <KLEBER Umaña - Last Filed: 05/03/23 15:09> [facility] Narrative Medical decision making narrative: Patient presenting with cold-like symptoms she has had since Wednesday. She is nontoxic-appearing and in no acute distress. Vitals are unremarkable, she is afebrile, she is not hypoxic. She is requesting a breathing treatment, this will be given to her. I will give her a prescription for an albuterol inhaler since hers is no longer working. She will be given Zofran for nausea. Chest x-ray be obtained to rule out pneumonia and other cardiopulmonary abnormality. COVID, influenza, and RSV swab will be obtained. This does sound viral in nature. Low Wells score, low suspicion for PE. She is influenza A positive. Chest x-ray negative for any acute findings. She reported improvement of her symptoms from the breathing treatments. She will be ambulated with pulse ox. She will be given a prescription for prednisone and an albuterol inhaler with spacer. She is out of the window for Tamiflu. She will be discharged home in stable condition and is comfortable with plan. Radiography X-Ray: Read by ED Physician Diagnostic Testing: Clinical Impression(s) from Imaging Studies Chest X-Ray 05/03/23 12:45 IMPRESSION: No acute cardiopulmonary process identified. Electronically Signed: Ese cMcoy MD at 13:02 EST Reading Location ID and State: [facility] / [place] Tel , Service support , <Dr. Ronald Fierro MD - Last Filed: 05/03/23 15:15> [facility] MDM Narrative Medical decision making narrative: Patient presenting with cold-like symptoms she has had since Wednesday. She is nontoxic-appearing and in no acute distress. Vitals are unremarkable, she is afebrile, she is not hypoxic. She is requesting a breathing treatment, this will be given to her. I will give her a prescription for an albuterol inhaler since hers is no longer working. She will be given Zofran for nausea. Chest x-ray be obtained to rule out pneumonia and other cardiopulmonary abnormality. COVID, influenza, and RSV swab will be obtained. This does sound viral in nature. Low Wells score, low suspicion for PE. She is influenza A positive. Chest x-ray negative for any acute findings. She reported improvement of her symptoms from the breathing treatments. She will be ambulated with pulse ox. She will be given a prescription for prednisone and an albuterol inhaler with spacer. She is out of the window for Tamiflu. She will be discharged home in stable condition and is comfortable with plan. I have personally performed a face to face assessment of the patient and have reviewed the SILAS Note. I performed a substantive portion of the visit including all aspects of the following. My vanessa findings include: History is patient presents with flulike symptoms that started this past Wednesday. She reports chills. She does report mild head discomfort congestion. Her cough is not productive. She reports wheezing. Exam is [ ] Medical Decision Making [ ] Other additions or changes: [None] Radiography Diagnostic Testing: Clinical Impression(s) from Imaging Studies Chest X-Ray 05/03/23 12:45 IMPRESSION: No acute cardiopulmonary process identified. Electronically Signed: Ese Mccoy MD at 13:02 EST , Discharge Plan Triage Chief Complaint: Cough ED Midlevel Provider: Shannan Laureano ED Provider: Ronald Fierro Dx/Rx/DC Orders Clinical Impression: Influenza A, Asthma Instructions: ED Influenza (Adult) Prescriptions: New albuterol sulfate [Ventolin HFA] 90 mcg/actuation HFA aerosol inhaler 1 - 2 puff inhalation Q4H PRN PRN (Reason: Wheezing) Qty: 1 0RF Rx Instructions: please give spacer prednisone 20 mg tablet 40 mg PO DAILY Qty: 10 0RF No Action ondansetron HCl 8 mg tablet 8 mg PO Q8H PRN (Reason: nausea and vomiting) Qty: 14 0RF simvastatin 20 tablet 20 mg PO QHS albuterol sulfate [Proventil HFA] 6.7 GM HFA aerosol inhaler 2 puff inhalation Q4H PRN PRN (Reason: Sob &/Or Wheezing) fluoxetine 20 MG capsule 20 mg PO DAILY Patient Comments: TAKE 1 CAPSULE BY MOUTH DAILY metformin 500 mg tablet 500 mg PO BID Qty: 20 0RF ondansetron 4 mg tablet,disintegrating 4 mg PO Q8H PRN PRN (Reason: Nausea) Qty: 7 0RF budesonide-formoterol [Symbicort] 80-4.5 mcg/actuation HFA aerosol inhaler 2 puff inhalation BID Qty: 10.2 0RF benzonatate 200 mg capsule 200 mg PO TID PRN (Reason: cough) Qty: 20 0RF furosemide [Lasix] 20 mg tablet 20 mg PO DAILY Qty: 5 0RF Primary Care Provider: Malgorzata Jimenez Referrals: Malgorzata Jimenez [Primary Care Provider] - 5-7 Days Activity Restrictions/Additional Instructions: Return for any worsening of your symptoms, follow-up with PCP. Disposition Disposition: Home, Self Care Discharge Date/Time: 05/03/23 13:45
[2023-05-03] MEDS: Ondansetron ODT 4 MG Tablet PO (12:18)
[2023-05-03 12:19] VITALS: PULSE 72; O2SAT 94
[2023-05-03] MEDS: Ipratropium/Albuterol Sulfate 3 ML AMPUL.NEB INHALATION (12:21)
[2023-05-03] MEDS: Albuterol 2.5 MG/3 ML VIAL.NEB. INHALATION (12:21)
[2023-05-03 12:23] VITALS: PULSE 73; RESP 16
--- NOTE | 2023-05-03 12:45 | RAD_ITS ---
HISTORY: shortness of breath. TECHNIQUE: XR Chest 2 Views. COMPARISON: 01/04/2023. FINDINGS: CARDIOMEDIASTINAL BORDERS: Cardiac silhouette within normal limits in size. Mediastinal contour unremarkable. LUNGS: Radiographically clear. PLEURA: No pleural effusion or pneumothorax seen. OSSEOUS STRUCTURES: Degenerative change. RAD/Chest PA and Lateral IMPRESSION: No acute cardiopulmonary process identified. Electronically Signed: Ese Mccoy MD at 13:02 EST ,
[2023-05-03 13:39] VITALS: O2SAT 99
[2023-05-03 13:43] VITALS: BP 151/73; PULSE 83; RESP 20; TEMP 36.6; O2SAT 97
== END 2023-05-03 13:45 | disposition home or self-care (01) ==
PROVIDERS: Emergency Provider Emergency Medicine; Visit Provider Emergency Medicine
DX: J10.1 Influenza due to other identified influenza virus with other respiratory manifestations (principal); E11.9 Type 2 diabetes mellitus without complications; J45.909 Unspecified asthma, uncomplicated; R11.2 Nausea with vomiting, unspecified; I10 Essential (primary) hypertension
CPT/HCPCS: 71046; 87631; 94640; 99282

== ENCOUNTER 2023-07-03 14:11 | Emergency (ER) | payer MEDICAID, SELFPAY ==
[2023-07-03 14:13] VITALS: BP 148/79; PULSE 80; RESP 16; TEMP 35.6; O2SAT 97; BMI 40.4
--- NOTE | 2023-07-03 14:21 | RAD_ITS ---
EXAM: XR RIGHT FOOT COMPLETE, 3 OR MORE VIEWS CLINICAL INDICATION: INJURY TECHNIQUE: Frontal, lateral and oblique views of the right foot. COMPARISON: No relevant prior studies available. FINDINGS: BONES/JOINTS: Unremarkable. No acute fracture. No subluxation. Normal alignment. Preservation of the joint space. No sclerotic or destructive changes observed. SOFT TISSUES: Mild subcutaneous swelling around the foot. No radiopaque foreign body. RAD/Foot min 3 Views IMPRESSION: No acute osseous abnormality of the right foot. Electronically Signed: Amari Servin MD at 14:53 EDT ,
--- NOTE | 2023-07-03 14:21 | RAD_ITS ---
EXAM: XR RIGHT HAND COMPLETE, 3 OR MORE VIEWS CLINICAL INDICATION: INJURY TECHNIQUE: Frontal, lateral and oblique views of the right hand. COMPARISON: No relevant prior studies available. FINDINGS: BONES/JOINTS: Unremarkable. No acute fracture. No subluxation. Normal alignment. Preservation of the joint space. No sclerotic or destructive changes observed. SOFT TISSUES: Unremarkable. No soft tissue swelling or gas. No radiopaque foreign body. RAD/Hand Min 3 Views IMPRESSION: Negative right hand x-rays. Electronically Signed: Amari Servin MD at 14:52 EDT ,
--- NOTE | 2023-07-03 15:53 | EDS_ITS ---
HPI History of Present Illness Chief Complaint: Fall Narrative Narrative: 53-year-old female, [id number], presents with injury to her right hand into her right foot that she sustained prior to arrival. She states that she was trying to move a large office desk, when her right hand got pinned between the desk and the wall. The desk also fell onto her right foot. She did not take anything because she does not have anything at home. She states it was only pinned for a minute or 2. She denies other injuries. She complains of pain along the dorsum of her right hand and on the top of her right foot. [facility] Medical History Asthma Bipolar 1 disorder Diabetes Hyperlipidemia Hypertension Home Medications simvastatin 20 mg tablet 20 mg PO QHS cholesterol 06/28/18 [History Last Taken 07/17/18] albuterol sulfate 90 mcg/actuation aerosol inhaler (Proventil HFA) 2 puff inhalation Q4H PRN PRN Sob &/Or Wheezing 07/18/18 [History Last Taken 07/18/18] fluoxetine 20 mg capsule 20 mg PO DAILY depression 07/18/18 [History Last Taken 07/17/18] metformin 500 mg tablet 500 mg PO BID #20 tabs 05/25/22 [Rx Last Taken Unknown] ondansetron 4 mg disintegrating tablet 4 mg PO Q8H PRN PRN Nausea #7 tabs 08/24/22 [Rx Last Taken Unknown] ondansetron HCl 8 mg tablet 8 mg PO Q8H PRN nausea and vomiting #14 tabs 11/05/22 [Rx Last Taken Unknown] benzonatate 200 mg capsule 200 mg PO TID PRN cough #20 caps 01/04/23 [Rx Last Taken Unknown] budesonide-formoterol HFA 80 mcg-4.5 mcg/actuation aerosol inhaler (Symbicort) 2 puff inhalation BID #10.2 grams 01/04/23 [Rx Last Taken Unknown] furosemide 20 mg tablet (Lasix) 20 mg PO DAILY #5 tabs 02/10/23 [Rx Last Taken Unknown] albuterol sulfate 90 mcg/actuation aerosol inhaler (Ventolin HFA) 1 - 2 puff inhalation Q4H PRN PRN Wheezing #1 inh 05/03/23 [Rx Last Taken Unknown] prednisone 20 mg tablet 40 mg (2 x 20 mg) PO DAILY #10 tabs 05/03/23 [Rx Last Taken Unknown] ibuprofen 800 mg tablet 800 mg PO Q8H PRN pain #20 tabs 07/03/23 [Rx Last Taken Unknown] Allergy/AdvReac Type Severity Reaction Status Date / Time Penicillins AdvReac Vomiting Verified 07/03/23 14:13 Surgical History Hx of breast surgery Hx of cholecystectomy Hx of tubal ligation Social History Smoking Status: Never smoker ROS ROS ED ROS Narrative Constitutional: No fever, no chills. HEENT: No sore throat. No neck pain. No loss of vision. No rhinorrhea. Cardiovascular: No chest pain. No palpitations. No pedal edema. Respiratory: No cough, no shortness of breath. Abdominal: No abdominal pain. No nausea. No vomiting. Genitourinary: No dysuria. No hematuria. Musculoskeletal: No myalgias. Right hand pain, right foot pain. Neurologic: No headaches. No dizziness. No lightheadedness. Skin: No rash. No change in color. Psychiatric: No depression. No anxiety. EXAM Physical Exam Narrative Exam Narrative: Afebrile. Vital signs noted. GCS 15. ABCs are intact. HEENT: Normocephalic. Atraumatic. PERRL, EOMI. Neck soft and supple. No point tenderness or step off. Cardiovascular: Regular rate and rhythm. No murmurs, rubs, or gallops appreciated. Respiratory: No tachypnea. Lungs clear to auscultation bilaterally. Gastrointestinal: Abdomen soft, nontender, with normoactive bowel sounds. No rebound or guarding. Neurological: Awake. Alert. Nonfocal, nonlateralizing. Skin: No rash. Normal color. No pallor. Musculoskeletal: No pedal edema. Full range of motion extremities. Mild tenderness palpation dorsum of right hand along metacarpals. Able to oppose thumb. Full range of motion of all fingers on right hand. Palpable radial pulse. Good capillary refill. Inspection of the right foot reveals tenderness to palpation across the dorsum of the right foot. Palpable dorsalis pedis pulse. Full range of motion of all toes. No tenderness to palpation right ankle and above. Const Vital Signs: 07/03/23 14:13 Temperature 96.1 F L Temperature Source Temporal Pulse Rate 80 Respiratory Rate 16 Blood Pressure 148/79 H Blood Pressure Mean 102 Pulse Ox 97 Oxygen Delivery Method Room Air MDM MDM MDM Narrative Medical decision making narrative: X-rays of the right foot and of the right hand and 3 views each obtained per RN protocol. I independently interpreted the x-rays of the right foot and the right hand and see no evidence of acute fracture. I reviewed the radiology reports for both sets of x-rays which confirms my independent interpretation. She was given an ibuprofen 800 mg tablet here and prescription written at her request. She also requested to be off work today. She will be placed in Fletcher wrap's in her right hand and right foot and continue ice and elevation at home. She will follow-up with primary care. Disposition is discharged home in stable condition. Radiography Diagnostic Testing: Clinical Impression(s) from Imaging Studies Foot X-Ray 07/03/23 14:21 IMPRESSION: No acute osseous abnormality of the right foot. Electronically Signed: Amari Servin MD at 14:53 EDT , Hand X-Ray 07/03/23 14:21 IMPRESSION: Negative right hand x-rays. Electronically Signed: Amari Servin MD at 14:52 EDT , Discharge Plan Triage Chief Complaint: Fall ED Provider: Amari Ashley Dx/Rx/DC Orders Clinical Impression: Contusion of foot, right, Contusion of right hand Instructions: ED Hand Contusion, ED Foot Contusion Prescriptions: New ibuprofen 800 mg tablet 800 mg PO Q8H PRN (Reason: pain) Qty: 20 0RF No Action ondansetron HCl 8 mg tablet 8 mg PO Q8H PRN (Reason: nausea and vomiting) Qty: 14 0RF simvastatin 20 tablet 20 mg PO QHS albuterol sulfate [Proventil HFA] 6.7 GM HFA aerosol inhaler 2 puff inhalation Q4H PRN PRN (Reason: Sob &/Or Wheezing) fluoxetine 20 MG capsule 20 mg PO DAILY Patient Comments: TAKE 1 CAPSULE BY MOUTH DAILY metformin 500 mg tablet 500 mg PO BID Qty: 20 0RF ondansetron 4 mg tablet,disintegrating 4 mg PO Q8H PRN PRN (Reason: Nausea) Qty: 7 0RF budesonide-formoterol [Symbicort] 80-4.5 mcg/actuation HFA aerosol inhaler 2 puff inhalation BID Qty: 10.2 0RF benzonatate 200 mg capsule 200 mg PO TID PRN (Reason: cough) Qty: 20 0RF furosemide [Lasix] 20 mg tablet 20 mg PO DAILY Qty: 5 0RF albuterol sulfate [Ventolin HFA] 90 mcg/actuation HFA aerosol inhaler 1 - 2 puff inhalation Q4H PRN PRN (Reason: Wheezing) Qty: 1 0RF Rx Instructions: please give spacer prednisone 20 mg tablet 40 mg PO DAILY Qty: 10 0RF [facility] Referrals: Katty Aguila MD [Med Staff - [employer] Manager] - As Needed Medical [place],Malgorzata Oconnor [Primary Care Provider] - 1 Week if not improving Disposition Disposition: Home, Self Care
[2023-07-03] MEDS: Ibuprofen 400 MG Tablet 800 MG PO (16:02)
== END 2023-07-03 16:09 | disposition home or self-care (01) ==
LOC: ED 16:01
PROVIDERS: Emergency Provider Emergency Medicine; Visit Provider Emergency Medicine
DX: S90.31XA Contusion of right foot, initial encounter (principal); E11.9 Type 2 diabetes mellitus without complications; S60.221A Contusion of right hand, initial encounter; J45.909 Unspecified asthma, uncomplicated; I10 Essential (primary) hypertension; E78.5 Hyperlipidemia, unspecified; W20.8XXA Other cause of strike by thrown, projected or falling object, initial encounter
CPT/HCPCS: 73130; 73630; 99282

== ENCOUNTER 2023-07-16 11:29 | Emergency (ER) | payer MEDICAID, SELFPAY ==
[2023-07-16 11:31] VITALS: BP 147/80; PULSE 70; RESP 12; TEMP 35.5; O2SAT 98; BMI 40.4
[2023-07-16 12:28] LABS: Absolute Lymphocyte Count 2.19 X10^3/uL (0.83-4.51); Absolute Neutrophil Count 5.1 X10^3/uL (2.0-7.7); Basophil# 0.03 X10^3/uL; Basophil% 0.4 % (0-1); Eosinophil# 0.11 X10^3/uL; Eosinophils% 1.4 % (0-5); Hematocrit 32.5 % (37-47); Hemoglobin 9.6 g/dL (12.0-15.0); Lymphocyte # 2.19 X10^3/ul (0.83-4.51); Lymphocyte % 27.1 % (19-41); Mean Corp Hgb Conc 29.5 g/dL (32-36); Mean Corpuscular Hgb 22.1 pg (27.0-32.0); Mean Corpuscular Volume 74.9 fL (81-99); Mean Platelet Vol. 9.8 fl (6.2-12.0); Monocyte# 0.61 X10^3/uL; Monocyte% 7.5 % (0-10); NRBC Flagged by Analyzer 0 % (0-5); Neutrophil # 5.12 X10^3/uL (2.7-7.7); Neutrophil % 63.4 % (47-70); Platelet Count 276 K/mm3 (150-450); RBC Distribution Width CV 17.2 % (11.6-14.6); RBC Distribution Width SD 46.5 fl (35.1-43.9); Red Blood Count 4.34 M/mm3 (4.2-5.4); White Blood Count 8.1 K/mm3 (4.4-11.0)
[2023-07-16 12:43] LABS: ALB/GLOB Ratio 0.8 RATIO (0.9-2.4); AST(SGOT) 11 U/L (15-37); Alanine Aminotransfer ALT/SGPT 13 U/L (13-56); Albumin, Serum 3.3 g/dL (3.2-5.0); Alkaline Phosphatase 78 U/L (45-117); Anion Gap 6 (5-15); BUN 13 mg/dL (7-18); BUN/Creat Ratio 16.8 RATIO (10-20); Calcium,Total 9.2 mg/dL (8.5-10.1); Chloride 106 mmol/L (98-107); Creatinine, Serum 0.78 mg/dL (0.55-1.02); EST Glomerular Filtration Rate 83 mL/min (>60); Est Glom Filt Rate - Afr Amer 101 mL/min (>60); Estimated Creatinine Clearance 82.48 ml/min; Globulin 4.1 g/dL (2.2-4.2); Glucose 105 mg/dL (74-106); Lipase 23 U/L (13-75); Potassium 3.6 mmol/L (3.5-5.1); Protein, Total 7.4 g/dL (6.4-8.2); Sodium Level 138 mmol/L (136-145)
[2023-07-16 13:08] LABS: Mucous, Urine 0 SEEN /hpf (<or=2+)
[2023-07-16 13:10] LABS: Color, Urine Yellow (Yellow); Glucose, Dipstick Normal (Normal); Ketone-Dipstick Negative (Negative); Leukocyte Esterase-Dipstick 500 /ul (Negative); Nitrite-Dipstick Positive (Negative); Occult Blood-Urine 250 /ul (Negative); Protein-Dipstick 30 mg/dl (Negative); Urine Bilirubin Dipstick Negative (Negative); Urine Clarity Sl. Cloudy (Clear); Urine Urobilinogen Normal (Normal)
[2023-07-16] MEDS: 0.9% Normal Saline (1000mL) 1,000 ML 999 ML IV (13:10)
[2023-07-16 13:23] LABS: Bacteria 3+ /hpf (None Seen); Red Blood Cells-Urine 10-25 SEEN /hpf (0-5); Squamous Epithelial Cells - UA 0-5 SEEN /hpf (5-10); White Blood Cells 50-100 SEEN /hpf (0-5)
[2023-07-16 13:30] VITALS: BP 138/72; PULSE 63; RESP 21; O2SAT 100
[2023-07-16] MEDS: Ceftriaxone 1 GM/50 ML BAG IV (13:40)
[2023-07-16 15:00] VITALS: BP 144/78; PULSE 71; RESP 15; TEMP 36.7; O2SAT 100
--- NOTE | 2023-07-16 19:43 | EX.ED.DYSGE1 ---
HPI History of Present Illness Chief Complaint: Weakness Narrative Narrative: 53-year-old female presenting with weakness, lightheadedness. Patient states she has not had a fever. She noted that her blood sugar was high this morning. She states she works at [employer] that she eats a lot of abdominals but tries to stay away from carbs because she is diabetic. She did eat order fries and had a hamburger without the bun. She woke up and her blood sugar was over 200 and she was concerned with her symptoms. No cough or shortness of breath. She is not vomiting. She does not have any diarrhea or constipation. Patient denies urinary complaints. Patient also has some mild headache. No visual complaints [facility] Medical History Hyperlipidemia Bipolar 1 disorder Hypertension Diabetes Asthma Home Medications ?Medication ?Instructions ?Recorded ?Last Taken ?Type simvastatin 20 mg tablet 20 mg PO QHS cholesterol 06/28/18 07/17/18 History albuterol sulfate 90 mcg/actuation 2 puff inhalation Q4H PRN PRN Sob 07/18/18 07/18/18 History aerosol inhaler (Proventil HFA) &/Or Wheezing fluoxetine 20 mg capsule 20 mg PO DAILY depression 07/18/18 07/17/18 History metformin 500 mg tablet 500 mg PO BID #20 tabs 05/25/22 Unknown Rx ondansetron 4 mg disintegrating 4 mg PO Q8H PRN PRN Nausea #7 tabs 08/24/22 Unknown Rx tablet ondansetron HCl 8 mg tablet 8 mg PO Q8H PRN nausea and 11/05/22 Unknown Rx vomiting #14 tabs benzonatate 200 mg capsule 200 mg PO TID PRN cough #20 caps 01/04/23 Unknown Rx budesonide-formoterol HFA 80 2 puff inhalation BID #10.2 grams 01/04/23 Unknown Rx mcg-4.5 mcg/actuation aerosol inhaler (Symbicort) furosemide 20 mg tablet (Lasix) 20 mg PO DAILY #5 tabs 02/10/23 Unknown Rx albuterol sulfate 90 mcg/actuation 1 - 2 puff inhalation Q4H PRN PRN 05/03/23 Unknown Rx aerosol inhaler (Ventolin HFA) Wheezing #1 inh prednisone 20 mg tablet 40 mg (2 x 20 mg) PO DAILY #10 tabs 05/03/23 Unknown Rx ibuprofen 800 mg tablet 800 mg PO Q8H PRN pain #20 tabs 07/03/23 Unknown Rx cephalexin 500 mg capsule 500 mg PO Q12 #14 CAPSULES 07/16/23 Unknown Rx ondansetron 4 mg disintegrating 4 mg PO Q8H PRN PRN Nausea #10 tabs 07/16/23 Unknown Rx tablet Allergy/AdvReac Type Severity Reaction Status Date / Time Penicillins AdvReac Vomiting Verified 07/16/23 11:30 Surgical History Hx of cholecystectomy Hx of breast surgery Hx of tubal ligation Social History Smoking Status: Never smoker ROS ROS ED ROS Narrative Lightheadedness Constitutional Constitutional ED: Denies chills, fever(s) or sweats Eyes Eyes: Denies blurry vision or change in vision ENT ENT ED: Denies ear pain or sore throat Cardiovascular Cardiovascular: Reports palpitations; Denies chest pain or racing heartbeat Respiratory/Chest Respiratory/Chest: Denies cough, dyspnea or sputum Gastrointestinal Gastrointestinal: Denies abdominal pain, constipation, diarrhea, nausea or vomiting Genitourinary Genitourinary ED: Denies dysuria, hematuria or urinary frequency Musculoskeletal Musculoskeletal: Denies arthralgias, myalgias or neck pain Integumentary Denies abscess, Abrasions or rash Neurologic Neurologic: Denies headache(s), paresthesias or weakness Psychiatric Psychiatric: Denies anxiety, depression, suicidal ideation or suicidal thoughts Endocrine Endocrinology: Denies polydipsia or polyuria EXAM Physical Exam Const Vital Signs: 07/16/23 11:31 07/16/23 11:31 07/16/23 12:15 Temperature 96 F L Temperature Source Temporal Pulse Rate 70 70 Respiratory Rate 12 12 Respiratory Effort Normal Respiratory Pattern Normal Blood Pressure 147/80 H 147/80 H Blood Pressure Mean 102 102 Pulse Ox 98 98 Oxygen Delivery Method Room Air Room Air 07/16/23 13:30 07/16/23 15:00 Temperature 98.0 F Temperature Source Pulse Rate 63 71 Respiratory Rate 21 H 15 Respiratory Effort Respiratory Pattern Blood Pressure 138/72 H 144/78 H Blood Pressure Mean 94 100 Pulse Ox 100 100 Oxygen Delivery Method Room Air Positive well nourished General Appearance ED: NAD HEENT Reports moist mucous membranes Eyes PERRL and EOMs intact bilaterally Chest Wall inspection of chest normal Resp normal respiratory effort and clear to auscultation bilaterally Auscultation: Negative for rales, rhonchi or wheezes Cardio regular rate and regular rhythm Extremity normal to inspection Neuro oriented x3 and CN's II-XII intact bilaterally Sensorium / Orientation: alert Psych mental status grossly normal Skin no rashes or lesions noted MDM MDM MDM Narrative Medical decision making narrative: . Patient with general weakness lightheadedness and mild headache. She is any focal deficits on examination. I obtained a CBC to assess white blood cell count, hemoglobin, platelets. CMP to assess liver function, renal function electrolytes, glucose. CBC showed white blood cell count of 8.1. Hemoglobin 9.6 and above baseline. BUN/creatinine are normal. LFTs unremarkable. Urinalysis was positive for infection. Patient given IV fluids and Rocephin. She feels better after treatment. She will be sent home with a prescription for Keflex and Zofran. Return precautions discussed. Impression: 1. Headache 2. Nausea 3. UTI Lab Data Attestation: I reviewed the patient's lab results. Labs: Laboratory Results - last 24 hr 07/16/23 07/16/23 12:19 13:05 WBC 8.1 RBC 4.34 Hgb 9.6 L Hct 32.5 L MCV 74.9 L MCH 22.1 L MCHC 29.5 L RDW Std Deviation 46.5 H RDW Coeff of Yohannes 17.2 H Plt Count 276 MPV 9.8 Immature Gran % (Auto) 0.200 Neut % (Auto) 63.4 Lymph % (Auto) 27.1 [place] % (Auto) 7.5 Eos % (Auto) 1.4 Baso % (Auto) 0.4 Absolute Neuts (auto) 5.1 Absolute Lymphs (auto) 2.19 Nucleated RBC % 0 Sodium 138 Potassium 3.6 Chloride 106 Carbon Dioxide 26.0 Anion Gap 6 BUN 13 Creatinine 0.78 Estim Creat Clear Calc 82.48 Est GFR (MDRD) Af Amer 101 Est GFR (MDRD) Non-Af 83 BUN/Creatinine Ratio 16.8 Glucose 105 Calcium 9.2 Total Bilirubin 0.30 AST 11 L ALT 13 Alkaline Phosphatase 78 Total Protein 7.4 Albumin 3.3 Globulin 4.1 Albumin/Globulin Ratio 0.8 L Lipase 23 Urine Color Yellow Urine Clarity Sl. Cloudy Urine pH 6.0 Ur Specific [place] 1.020 Urine Protein 30 H Urine Glucose (UA) Normal Urine Ketones Negative Urine Occult Blood 250 H Urine Nitrite Positive H Urine Bilirubin Negative Urine Urobilinogen Normal Ur Leukocyte Esterase 500 H Urine RBC 10-25 SEEN Urine WBC 50-100 SEEN Ur Squamous Epith Cells 0-5 SEEN Urine Bacteria 3+ Urine Mucus 0 SEEN Discharge Plan Triage Chief Complaint: Weakness Other Complaint: Hyperglycemia ED Provider: Larry Mei Dx/Rx/DC Orders Instructions: ED Cystitis Female Adult Prescriptions: New cephalexin 500 mg capsule 500 mg PO Q12 Qty: 14 0RF ondansetron 4 mg tablet,disintegrating 4 mg PO Q8H PRN PRN (Reason: Nausea) Qty: 10 0RF No Action ondansetron HCl 8 mg tablet 8 mg PO Q8H PRN (Reason: nausea and vomiting) Qty: 14 0RF simvastatin 20 tablet 20 mg PO QHS albuterol sulfate [Proventil HFA] 6.7 GM HFA aerosol inhaler 2 puff inhalation Q4H PRN PRN (Reason: Sob &/Or Wheezing) fluoxetine 20 MG capsule 20 mg PO DAILY Patient Comments: TAKE 1 CAPSULE BY MOUTH DAILY metformin 500 mg tablet 500 mg PO BID Qty: 20 0RF ondansetron 4 mg tablet,disintegrating 4 mg PO Q8H PRN PRN (Reason: Nausea) Qty: 7 0RF budesonide-formoterol [Symbicort] 80-4.5 mcg/actuation HFA aerosol inhaler 2 puff inhalation BID Qty: 10.2 0RF benzonatate 200 mg capsule 200 mg PO TID PRN (Reason: cough) Qty: 20 0RF furosemide [Lasix] 20 mg tablet 20 mg PO DAILY Qty: 5 0RF albuterol sulfate [Ventolin HFA] 90 mcg/actuation HFA aerosol inhaler 1 - 2 puff inhalation Q4H PRN PRN (Reason: Wheezing) Qty: 1 0RF Rx Instructions: please give spacer prednisone 20 mg tablet 40 mg PO DAILY Qty: 10 0RF ibuprofen 800 mg tablet 800 mg PO Q8H PRN (Reason: pain) Qty: 20 0RF Stand Alone Forms: ED Work / School Excuse Primary Care Provider: Care Physician,No Primary Referrals: Care Physician,No Primary [Primary Care Provider] - Print Language: Luxembourgish Disposition Disposition: Home, Self Care Discharge Date/Time: 07/16/23 15:38
== END 2023-07-16 15:38 | disposition home or self-care (01) ==
PROVIDERS: Emergency Provider Student in an Organized Health Care Education/Training Program; Visit Provider Student in an Organized Health Care Education/Training Program
DX: N39.0 Urinary tract infection, site not specified (principal); E11.65 Type 2 diabetes mellitus with hyperglycemia; R42 Dizziness and giddiness; R53.1 Weakness; R11.0 Nausea; R51.9 Headache, unspecified; E78.5 Hyperlipidemia, unspecified; J45.909 Unspecified asthma, uncomplicated
CPT/HCPCS: 80053; 81001; 83690; 85025; 96365; 99283; A4216

== ENCOUNTER 2023-08-09 09:01 | Emergency (ER) | payer MEDICAID, SELFPAY ==
[2023-08-09 09:02] VITALS: BP 157/92; PULSE 78; RESP 16; TEMP 35.8; O2SAT 98; BMI 41.0
[2023-08-09 09:27] LABS: Bedside Glucose 124 mg/dL (74-106)
--- NOTE | 2023-08-09 09:27 | EDS_ITS ---
HPI History of Present Illness Chief Complaint: Hyperglycemia Informant: patient Onset/Context/Timing Onset: Yesterday Context: Sudden Onset Timing: Continuous Quality: Pressure Location: Head Worsened by: Nothing Relieved by: Nothing Narrative Narrative: Patient presents with headache and elevated blood sugar that began yesterday. Patient states that her blood sugar yesterday was 336. Patient states that she tried to contact her primary care physician. Patient states they would not see her because she missed too many appointments. Patient states she is supposed to be taking antihypertensive medication but ran out of that. Patient does not remember the name of her antihypertensive medication. Patient describes her headache as a pressure sensation. Patient states it is generalized. Patient states nothing makes it better nothing makes it worse. Patient admits to some subjective fevers. Patient denies any chills. Patient denies any nausea or vomiting. [facility] Medical History Hyperlipidemia Bipolar 1 disorder Hypertension Diabetes Asthma Home Medications ?Medication ?Instructions ?Recorded ?Last Taken ?Type simvastatin 20 mg tablet 20 mg PO QHS cholesterol 06/28/18 07/17/18 History albuterol sulfate 90 mcg/actuation 2 puff inhalation Q4H PRN PRN Sob 07/18/18 07/18/18 History aerosol inhaler (Proventil HFA) &/Or Wheezing fluoxetine 20 mg capsule 20 mg PO DAILY depression 07/18/18 07/17/18 History metformin 500 mg tablet 500 mg PO BID #20 tabs 05/25/22 Unknown Rx ondansetron 4 mg disintegrating 4 mg PO Q8H PRN PRN Nausea #7 tabs 08/24/22 Unknown Rx tablet ondansetron HCl 8 mg tablet 8 mg PO Q8H PRN nausea and 11/05/22 Unknown Rx vomiting #14 tabs benzonatate 200 mg capsule 200 mg PO TID PRN cough #20 caps 01/04/23 Unknown Rx budesonide-formoterol HFA 80 2 puff inhalation BID #10.2 grams 01/04/23 Unknown Rx mcg-4.5 mcg/actuation aerosol inhaler (Symbicort) furosemide 20 mg tablet (Lasix) 20 mg PO DAILY #5 tabs 02/10/23 Unknown Rx albuterol sulfate 90 mcg/actuation 1 - 2 puff inhalation Q4H PRN PRN 05/03/23 Unknown Rx aerosol inhaler (Ventolin HFA) Wheezing #1 inh prednisone 20 mg tablet 40 mg (2 x 20 mg) PO DAILY #10 tabs 05/03/23 Unknown Rx ibuprofen 800 mg tablet 800 mg PO Q8H PRN pain #20 tabs 07/03/23 Unknown Rx cephalexin 500 mg capsule 500 mg PO Q12 #14 CAPSULES 07/16/23 Unknown Rx ondansetron 4 mg disintegrating 4 mg PO Q8H PRN PRN Nausea #10 tabs 07/16/23 Unknown Rx tablet sulfamethoxazole 800 1 tab PO BID #6 TABLETS 08/09/23 Unknown Rx mg-trimethoprim 160 mg tablet Allergy/AdvReac Type Severity Reaction Status Date / Time Penicillins AdvReac Vomiting Verified 08/09/23 09:01 Surgical History Hx of cholecystectomy Hx of breast surgery Hx of tubal ligation Social History Smoking Status: Never smoker ROS ROS ED Constitutional Constitutional ED: Reports fever(s) and subjective; Denies chills Eyes Eyes: Denies blurry vision or change in vision ENT ENT ED: Denies rhinorrhea or sore throat Cardiovascular Cardiovascular: Denies chest pain or palpitations Respiratory/Chest Respiratory/Chest: Denies cough or dyspnea Gastrointestinal Gastrointestinal: Denies nausea or vomiting Genitourinary Genitourinary ED: Denies dysuria or hematuria Musculoskeletal Musculoskeletal: Reports back pain and neck pain Integumentary Denies abscess or rash Neurologic Neurologic: Reports headache(s); Denies weakness Allergic/Immunologic Allergic/Immunologic ED: Denies mouth swelling or urticaria EXAM Physical Exam Const Vital Signs: 08/09/23 09:02 08/09/23 13:01 Temperature 96.5 F L Temperature Source Temporal Pulse Rate 78 77 Respiratory Rate 16 17 Blood Pressure 157/92 H Blood Pressure Mean 113 Pulse Ox 98 100 Oxygen Delivery Method Room Air Room Air Positive well nourished and well developed General Appearance ED: well developed and NAD HEENT Reports moist mucous membranes Eyes PERRL and EOMs intact bilaterally Neck supple and no JVD Resp normal respiratory effort and clear to auscultation bilaterally Cardio regular rate and regular rhythm GI non-distended Palpation: soft and tender epigastric, LLQ, RLQ, LUQ, RUQ, periumbilical and suprapubic; Negative for guarding or rebound tenderness present Extremity normal to inspection Neuro oriented x3, CN's II-XII intact bilaterally and no sensory deficits noted Sensorium / Orientation: alert Motor Exam: strength 5/5 throughout Psych mental status grossly normal MDM MDM MDM Narrative Medical decision making narrative: Differential diagnosis includes hyperglycemia, migraine headache, tension headache, intracranial bleeding, gastroenteritis, and diabetic ketoacidosis. CT scan of the brain will be obtained to assess for intracranial bleeding. CBC will be obtained to assess for leukocytosis and anemia. Basic metabolic profile will be obtained to assess for electrolyte abnormality and renal function. Urinalysis will be obtained to assess for glucosuria, urinary tract infection, and hematuria. Serum ketones will be obtained to assess for ketoacidosis. Lab Data Attestation: I reviewed the patient's lab results. Lab results narrative: CBC was reviewed. There is a mild anemia with a hemoglobin of 9.0 and hematocrit of 31.3. This is consistent with previous results. Basic metabolic profile was reviewed and was within normal limits. Urinalysis was reviewed. There are positive nitrites. Leukocyte esterase was 100. There are 10-25 white blood cells and 3+ bacteria. Serum acetone was reviewed and was negative. Labs: Laboratory Results - last 24 hr 08/09/23 08/09/23 08/09/23 09:08 09:45 13:20 WBC 8.7 RBC 4.20 Hgb 9.0 L Hct 31.3 L MCV 74.5 L MCH 21.4 L MCHC 28.8 L RDW Std Deviation 45.9 H RDW Coeff of Yohannes 17.5 H Plt Count 349 MPV 10.2 Immature Gran % (Auto) 0.300 Neut % (Auto) 63.0 Lymph % (Auto) 25.1 [place] % (Auto) 9.3 Eos % (Auto) 2.0 Baso % (Auto) 0.3 Absolute Neuts (auto) 5.5 Absolute Lymphs (auto) 2.18 Nucleated RBC % 0 Sodium 140 Potassium 3.9 Chloride 111 H Carbon Dioxide 25.0 Anion Gap 4 L BUN 20 H Creatinine 0.68 Estim Creat Clear Calc 95.36 Est GFR (MDRD) Af Amer 117 Est GFR (MDRD) Non-Af 97 BUN/Creatinine Ratio 29.4 H Glucose 92 Calcium 8.8 Urine Color Yellow Urine Clarity Sl. Cloudy Urine pH 6.0 Ur Specific [place] 1.020 Urine Protein 15 H Urine Glucose (UA) Normal Urine Ketones Negative Urine Occult Blood 25 H Urine Nitrite Positive H Urine Bilirubin Negative Urine Urobilinogen Normal Ur Leukocyte Esterase 100 H Urine RBC 0-5 SEEN Urine WBC 10-25 SEEN Ur Squamous Epith Cells 0-5 SEEN Urine Bacteria 3+ Urine Mucus 0 SEEN Acetone Level NEGATIVE POC Glucose 124 H Radiography Diagnostic Testing: Clinical Impression(s) from Imaging Studies Brain CT 08/09/23 09:33 IMPRESSION: Normal unenhanced CT scan of the brain. Electronically Signed: Thaddeus Jones MD at 10:35 EDT , CT scan of the brain was obtained. There is no acute intracranial abnormality. This was interpreted by the radiologist and was also independently reviewed by myself. Treatment and Re-Evaluation :: Patient was given IV fluids, Reglan, and Benadryl. Patient was feeling better on reevaluation. Patient was advised of her findings. Patient was given a dose of Bactrim here. Patient was given a prescription for Bactrim. Patient was instructed to follow-up with her primary care physician in 5 to 7 days. Patient understood and was agreeable with the plan. All questions were answered. Discharge Plan Triage Chief Complaint: Hyperglycemia ED Provider: Rob Perdomo Dx/Rx/DC Orders Clinical Impression: Urinary tract infection, Headache Instructions: ED Cystitis Female Adult Prescriptions: New sulfamethoxazole-trimethoprim 800-160 mg tablet 1 tab PO BID Qty: 6 0RF No Action ondansetron HCl 8 mg tablet 8 mg PO Q8H PRN (Reason: nausea and vomiting) Qty: 14 0RF simvastatin 20 tablet 20 mg PO QHS albuterol sulfate [Proventil HFA] 6.7 GM HFA aerosol inhaler 2 puff inhalation Q4H PRN PRN (Reason: Sob &/Or Wheezing) fluoxetine 20 MG capsule 20 mg PO DAILY Patient Comments: TAKE 1 CAPSULE BY MOUTH DAILY metformin 500 mg tablet 500 mg PO BID Qty: 20 0RF ondansetron 4 mg tablet,disintegrating 4 mg PO Q8H PRN PRN (Reason: Nausea) Qty: 7 0RF budesonide-formoterol [Symbicort] 80-4.5 mcg/actuation HFA aerosol inhaler 2 puff inhalation BID Qty: 10.2 0RF benzonatate 200 mg capsule 200 mg PO TID PRN (Reason: cough) Qty: 20 0RF furosemide [Lasix] 20 mg tablet 20 mg PO DAILY Qty: 5 0RF albuterol sulfate [Ventolin HFA] 90 mcg/actuation HFA aerosol inhaler 1 - 2 puff inhalation Q4H PRN PRN (Reason: Wheezing) Qty: 1 0RF Rx Instructions: please give spacer prednisone 20 mg tablet 40 mg PO DAILY Qty: 10 0RF cephalexin 500 mg capsule 500 mg PO Q12 Qty: 14 0RF ondansetron 4 mg tablet,disintegrating 4 mg PO Q8H PRN PRN (Reason: Nausea) Qty: 10 0RF ibuprofen 800 mg tablet 800 mg PO Q8H PRN (Reason: pain) Qty: 20 0RF Primary Care Provider: Care Physician,No Primary Referrals: Care Physician,No Primary [Primary Care Provider] - Doctor,Your [Non-Staff] - Keep [place] appointment Print Language: [place] Disposition Disposition: Home, Self Care
--- NOTE | 2023-08-09 09:33 | CT_ITS ---
STUDY: CT BRAIN WITHOUT CONTRAST REASON FOR EXAM: Female, 53 years old. Dizziness. Hypertension. Patient is diabetic. RADIATION DOSAGE (If Supplied By Facility): CTDIvol = ( 44.99 ) mGy, DLP = ( 779.24 ) mGycm TECHNIQUE: Transaxial CT imaging of the brain was performed without administration of intravenous contrast material. Individualized dose optimization techniques were used for this CT. COMPARISON: No relevant priors. FINDINGS: Normal soft tissue structures. There is hyperostosis frontalis internus. Normal size ventricles and extra-axial spaces for the patient''s age. Normal white matter tracts of the cerebral hemispheres. Normal basal ganglia and thalami. Normal brainstem. Normal cerebellum. There is no intracranial hemorrhage. There are no findings of an acute ischemic infarction. Minimal mucosal thickening at the base of the left maxillary sinus. CT/Brain/Head without Contrast IMPRESSION: Normal unenhanced CT scan of the brain. Electronically Signed: Thaddeus Jones MD at 10:35 EDT ,
[2023-08-09 09:55] LABS: Absolute Lymphocyte Count 2.18 X10^3/uL (0.83-4.51); Absolute Neutrophil Count 5.5 X10^3/uL (2.0-7.7); Basophil# 0.03 X10^3/uL; Basophil% 0.3 % (0-1); Eosinophil# 0.17 X10^3/uL; Hematocrit 31.3 % (37-47); Lymphocyte # 2.18 X10^3/ul (0.83-4.51); Lymphocyte % 25.1 % (19-41); Mean Corp Hgb Conc 28.8 g/dL (32-36); Mean Corpuscular Hgb 21.4 pg (27.0-32.0); Mean Corpuscular Volume 74.5 fL (81-99); Mean Platelet Vol. 10.2 fl (6.2-12.0); Monocyte# 0.81 X10^3/uL; Monocyte% 9.3 % (0-10); NRBC Flagged by Analyzer 0 % (0-5); Neutrophil # 5.48 X10^3/uL (2.7-7.7); Platelet Count 349 K/mm3 (150-450); RBC Distribution Width CV 17.5 % (11.6-14.6); RBC Distribution Width SD 45.9 fl (35.1-43.9); White Blood Count 8.7 K/mm3 (4.4-11.0)
[2023-08-09] MEDS: Metoclopramide 10 MG/2 ML Vial IV (09:56)
[2023-08-09] MEDS: 0.9% Normal Saline (1000mL) 1,000 ML 1000 ML IV (09:57)
[2023-08-09] MEDS: DiphenhydrAMINE 50 MG/ML Syringe 25 MG IV (09:57)
[2023-08-09 10:09] LABS: Anion Gap 4 (5-15); BUN 20 mg/dL (7-18); BUN/Creat Ratio 29.4 RATIO (10-20); Calcium,Total 8.8 mg/dL (8.5-10.1); Chloride 111 mmol/L (98-107); Creatinine, Serum 0.68 mg/dL (0.55-1.02); EST Glomerular Filtration Rate 97 mL/min (>60); Est Glom Filt Rate - Afr Amer 117 mL/min (>60); Estimated Creatinine Clearance 95.36 ml/min; Glucose 92 mg/dL (74-106); Potassium 3.9 mmol/L (3.5-5.1); Sodium Level 140 mmol/L (136-145)
[2023-08-09 13:01] VITALS: PULSE 77; RESP 17; O2SAT 100
[2023-08-09 13:28] LABS: Mucous, Urine 0 SEEN /hpf (<or=2+)
[2023-08-09 13:31] LABS: Color, Urine Yellow (Yellow); Glucose, Dipstick Normal (Normal); Ketone-Dipstick Negative (Negative); Leukocyte Esterase-Dipstick 100 /ul (Negative); Nitrite-Dipstick Positive (Negative); Occult Blood-Urine 25 /ul (Negative); Protein-Dipstick 15 mg/dl (Negative); Urine Bilirubin Dipstick Negative (Negative); Urine Clarity Sl. Cloudy (Clear); Urine Urobilinogen Normal (Normal)
[2023-08-09 13:37] LABS: Red Blood Cells-Urine 0-5 SEEN /hpf (0-5); Squamous Epithelial Cells - UA 0-5 SEEN /hpf (5-10); White Blood Cells 10-25 SEEN /hpf (0-5)
[2023-08-09 13:38] LABS: Bacteria 3+ /hpf (None Seen)
[2023-08-09 14:34] VITALS: BP 116/80; PULSE 77; RESP 21; TEMP 36.2; O2SAT 100
== END 2023-08-09 14:38 | disposition home or self-care (01) ==
PROVIDERS: Emergency Provider Emergency Medicine; Visit Provider Emergency Medicine
DX: N39.0 Urinary tract infection, site not specified (principal); E11.65 Type 2 diabetes mellitus with hyperglycemia; R51.9 Headache, unspecified; J45.909 Unspecified asthma, uncomplicated; I10 Essential (primary) hypertension; E78.5 Hyperlipidemia, unspecified
CPT/HCPCS: 70450; 80048; 81001; 82009; 82962; 85025; 96361; 96374; 96375; 99283; J7030; A4216

== ENCOUNTER 2023-09-07 14:24 | Emergency (ER) | payer MEDICAID, SELFPAY ==
[2023-09-07 14:25] VITALS: BP 129/83; PULSE 80; RESP 14; TEMP 36.7; O2SAT 98; BMI 40.2
[2023-09-07 16:06] LABS: Mucous, Urine 0 SEEN /hpf (<or=2+)
[2023-09-07 16:08] LABS: Color, Urine Yellow (Yellow); Glucose, Dipstick Normal (Normal); Ketone-Dipstick Negative (Negative); Leukocyte Esterase-Dipstick 500 /ul (Negative); Nitrite-Dipstick Positive (Negative); Occult Blood-Urine 250 /ul (Negative); Protein-Dipstick 30 mg/dl (Negative); Specific Gravity, Urine 1.025 (1.002-1.030); Urine Bilirubin Dipstick Negative (Negative); Urine Clarity Sl. Cloudy (Clear); Urine Urobilinogen Normal (Normal)
--- NOTE | 2023-09-07 16:14 | CT_ITS ---
STUDY: CT ABDOMEN AND PELVIS WITH CONTRAST REASON FOR EXAM: Female, 53 years old. Lower abdominal pain RADIATION DOSAGE (If Supplied By Facility): CTDIvol = ( 16.2 ) mGy, DLP = ( 1136.69 ) mGycm TECHNIQUE: Transaxial images were obtained from the dome of the diaphragm to the symphysis pubis without oral contrast. 100ML ISOVUE 370 was administered. Sagittal and coronal images were reconstructed. Individualized dose optimization techniques were used for this CT. COMPARISON: June 28, 2018 FINDINGS: The visualized lung bases are unremarkable. The visualized portions of the heart are within normal limits. Normal liver. Gallbladder not visualized possibly due to prior cholecystectomy or severely contracted state.. Normal spleen. Normal pancreas. Normal bilateral adrenal glands. Nonobstructing right renal calculus... Normal left kidney. Normal visualized stomach. Normal small intestine. Minor diverticular changes of the colon without evidence for acute diverticulitis. Appendix not visualized status post appendectomy Normal abdominal aorta. Normal inferior vena cava. Normal retroperitoneum. Normal urinary bladder. Uterus is enlarged and heterogeneous appearance likely representing multiple fibroids with fluid in the the endometrial canal. There is a left ovarian cyst measuring approximately 2.7 cm Normal abdominal wall. Lumbar spine demonstrates degenerative change. Minor spondylolisthesis at L5-S1 with bilateral spondylolysis CT/Abdomen/Pelvis W IV Cont ONLY IMPRESSION: Enlarged uterus with multiple intrauterine fibroids and fluid in the endometrial canal likely representing hemorrhage. Small left ovarian cyst. Pelvic sonogram would be useful for further evaluation if indicated Nonobstructing right renal calculus. Electronically Signed: Andrea Lieberman MD at 18:15 EDT ,
--- NOTE | 2023-09-07 16:16 | ED.VIS.GI ---
HPI HPI - GI History of Present Illness Chief Complaint: Abd Pain Narrative Narrative: 53-year-old female presents with her fianc? because of lower abdominal pain that she has had since yesterday. She relates remote history that last year she had a uterine ablation. Since then she has intermittently had vaginal bleeding. She was told that she continues to have vaginal bleeding that she would need hysterectomy. She presents today because she is having lower abdominal pain and yesterday she had a gush of blood/uterine bleeding that is resolving. Additionally, she states that she had a bladder infection last week and is unsure if she is having pain secondary to continued infection. However she denies any hematuria or dysuria, no fevers or chills. She states she is here because she called the local [facility] with whom she is going to have follow-up and they told her given her lower abdominal pain that she should come to the emergency department for. [facility] Medical History Hyperlipidemia Bipolar 1 disorder Hypertension Diabetes Asthma Home Medications ?Medication ?Instructions ?Recorded ?Last Taken ?Type simvastatin 20 mg tablet 20 mg PO QHS cholesterol 06/28/18 07/17/18 History albuterol sulfate 90 mcg/actuation 2 puff inhalation Q4H PRN PRN Sob 07/18/18 07/18/18 History aerosol inhaler (Proventil HFA) &/Or Wheezing fluoxetine 20 mg capsule 20 mg PO DAILY depression 07/18/18 07/17/18 History metformin 500 mg tablet 500 mg PO BID #20 tabs 05/25/22 Unknown Rx ondansetron 4 mg disintegrating 4 mg PO Q8H PRN PRN Nausea #7 tabs 08/24/22 Unknown Rx tablet ondansetron HCl 8 mg tablet 8 mg PO Q8H PRN nausea and 11/05/22 Unknown Rx vomiting #14 tabs benzonatate 200 mg capsule 200 mg PO TID PRN cough #20 caps 01/04/23 Unknown Rx budesonide-formoterol HFA 80 2 puff inhalation BID #10.2 grams 01/04/23 Unknown Rx mcg-4.5 mcg/actuation aerosol inhaler (Symbicort) furosemide 20 mg tablet (Lasix) 20 mg PO DAILY #5 tabs 02/10/23 Unknown Rx albuterol sulfate 90 mcg/actuation 1 - 2 puff inhalation Q4H PRN PRN 05/03/23 Unknown Rx aerosol inhaler (Ventolin HFA) Wheezing #1 inh prednisone 20 mg tablet 40 mg (2 x 20 mg) PO DAILY #10 tabs 05/03/23 Unknown Rx ibuprofen 800 mg tablet 800 mg PO Q8H PRN pain #20 tabs 07/03/23 Unknown Rx cephalexin 500 mg capsule 500 mg PO Q12 #14 CAPSULES 07/16/23 Unknown Rx ondansetron 4 mg disintegrating 4 mg PO Q8H PRN PRN Nausea #10 tabs 07/16/23 Unknown Rx tablet sulfamethoxazole 800 1 tab PO BID #6 TABLETS 08/09/23 Unknown Rx mg-trimethoprim 160 mg tablet ibuprofen 800 mg tablet 800 mg PO TID PRN pain #20 tabs 09/07/23 Unknown Rx sulfamethoxazole 800 1 tab PO BID #14 tabs 09/07/23 Unknown Rx mg-trimethoprim 160 mg tablet (Bactrim DS) Allergy/AdvReac Type Severity Reaction Status Date / Time Penicillins AdvReac Vomiting Verified 09/07/23 14:25 Surgical History Hx of cholecystectomy Hx of breast surgery Hx of tubal ligation Social History Smoking Status: Current every day smoker tobacco type: e-cigarettes ROS ROS ED ROS Narrative Constitutional: No fever, no chills. HEENT: No sore throat. No neck pain. No loss of vision. No rhinorrhea. Cardiovascular: No chest pain. No palpitations. No pedal edema. Respiratory: No cough, no shortness of breath. Abdominal: Positive lower abdominal pain. No nausea. No vomiting. Genitourinary: No dysuria. No hematuria. Musculoskeletal: No myalgias. No arthralgias. Neurologic: No headaches. No dizziness. No lightheadedness. Skin: No rash. No change in color. Psychiatric: No depression. No anxiety. EXAM Physical Exam Narrative Exam Narrative: Afebrile. Vital signs noted. Regular rate and rhythm. Lungs clear to auscultation bilaterally. Abdomen soft and nontender with normoactive bowel sounds. No rebound or guarding. Neurological examination shows her awake, alert, nonfocal, nonlateralizing. Const Vital Signs: 09/07/23 14:25 09/07/23 16:25 Temperature 98.1 F Temperature Source Temporal Pulse Rate 80 80 Respiratory Rate 14 16 Blood Pressure 129/83 H 130/72 H Blood Pressure Mean 98 91 Pulse Ox 98 99 Oxygen Delivery Method Room Air Room Air MDM MDM MDM Narrative Medical decision making narrative: In the differential diagnosis is cystitis versus pyelonephritis versus uterine fibroids. Urinalysis obtained and she is positive for nitrites. Urine test will also be obtained with basic lab work. I do feel that instead of ultrasound, that CT with IV contrast should be obtained to rule out any lower pelvic/intra-abdominal process. I have very low concern for ectopic given her age of 53, and she is essentially postmenopausal and status post uterine ablation. I reviewed her laboratory work and she has normal white count of 9.5, hemoglobin 9.6, I do not feel she requires a blood transfusion, platelet count normal at 350. Electrolyte panel is grossly unremarkable with normal BUN and normal creatinine, glucose elevated at 127 with an anion gap normal at 5. AST is low at 10 with normal ALT of 16. Urinalysis consistent with infection with 50-100 WBCs and 1+ bacteria. She was given her first dose of Bactrim and prescription written for the next week. Of significance, in review of the radiology report of the CT of the abdomen and pelvis, she has multiple uterine fibroids and an enlarged uterus with some fluid in the endometrial canal consistent with hemorrhage. While pelvic ultrasound is recommended, I do not feel she needs an emergent pelvic ultrasound. She is requesting referral to [facility] from the emergency department as she states that she should probably be seen sooner than her appointment that she has scheduled. She was referred to the [facility] on-call. At this point in time, I feel she can be discharged to follow-up. After Toradol she states that she feels improved. I wrote her prescription for ibuprofen 800 mg as well. Return instructions to the emergency department were reviewed. Disposition is discharged home in stable condition. History & Record Review Discussion w/independent historian: Patient Lab Data Attestation: I reviewed the patient's lab results. Labs: Laboratory Results - last 24 hr 09/07/23 09/07/23 15:30 16:20 WBC 9.5 RBC 4.49 Hgb 9.6 L Hct 32.6 L MCV 72.6 L MCH 21.4 L MCHC 29.4 L RDW Std Deviation 46.1 H RDW Coeff of Yohannes 17.6 H Plt Count 350 MPV 10.1 Immature Gran % (Auto) 0.700 Neut % (Auto) 62.7 Lymph % (Auto) 26.3 [place] % (Auto) 7.9 Eos % (Auto) 2.0 Baso % (Auto) 0.4 Absolute Neuts (auto) 5.9 Absolute Lymphs (auto) 2.49 Nucleated RBC % 0 Sodium 138 Potassium 3.6 Chloride 106 Carbon Dioxide 27.0 Anion Gap 5 BUN 14 Creatinine 0.77 Estim Creat Clear Calc 83.32 Est GFR (MDRD) Af Amer 102 Est GFR (MDRD) Non-Af 84 BUN/Creatinine Ratio 18.3 Glucose 127 H Calcium 9.0 Total Bilirubin 0.30 AST 10 L ALT 16 Alkaline Phosphatase 83 Total Protein 7.5 Albumin 3.3 Globulin 4.2 Albumin/Globulin Ratio 0.8 L Serum , Qual NEGATIVE Urine Color Yellow Urine Clarity Sl. Cloudy Urine pH 5.0 Ur Specific [place] 1.025 Urine Protein 30 H Urine Glucose (UA) Normal Urine Ketones Negative Urine Occult Blood 250 H Urine Nitrite Positive H Urine Bilirubin Negative Urine Urobilinogen Normal Ur Leukocyte Esterase 500 H Urine RBC 10-25 SEEN Urine WBC 50-100 SEEN Ur Squamous Epith Cells 5-10 SEEN Ur Transition Epith Cell 0-5 SEEN Amorphous Sediment 1+ URATE Urine Bacteria 1+ Urine Mucus 0 SEEN Radiography Diagnostic Testing: Clinical Impression(s) from Imaging Studies Abdomen/Pelvis CT 09/07/23 16:14 IMPRESSION: Enlarged uterus with multiple intrauterine fibroids and fluid in the endometrial canal likely representing hemorrhage. Small left ovarian cyst. Pelvic sonogram would be useful for further evaluation if indicated Nonobstructing right renal calculus. Electronically Signed: Andrea Lieberman MD at 18:15 EDT , Discharge Plan Triage Chief Complaint: Abd Pain ED Provider: Amari Ashley Dx/Rx/DC Orders Clinical Impression: Uterine fibroid, UTI (urinary tract infection), Pelvic pain Instructions: ED Pelvic Pain, Unknown Cause, ED Uterine Fibroids Prescriptions: New sulfamethoxazole-trimethoprim [Bactrim DS] 800-160 mg tablet 1 tab PO BID Qty: 14 0RF ibuprofen 800 mg tablet 800 mg PO TID PRN (Reason: pain) Qty: 20 0RF No Action ondansetron HCl 8 mg tablet 8 mg PO Q8H PRN (Reason: nausea and vomiting) Qty: 14 0RF simvastatin 20 tablet 20 mg PO QHS albuterol sulfate [Proventil HFA] 6.7 GM HFA aerosol inhaler 2 puff inhalation Q4H PRN PRN (Reason: Sob &/Or Wheezing) fluoxetine 20 MG capsule 20 mg PO DAILY Patient Comments: TAKE 1 CAPSULE BY MOUTH DAILY metformin 500 mg tablet 500 mg PO BID Qty: 20 0RF ondansetron 4 mg tablet,disintegrating 4 mg PO Q8H PRN PRN (Reason: Nausea) Qty: 7 0RF budesonide-formoterol [Symbicort] 80-4.5 mcg/actuation HFA aerosol inhaler 2 puff inhalation BID Qty: 10.2 0RF benzonatate 200 mg capsule 200 mg PO TID PRN (Reason: cough) Qty: 20 0RF furosemide [Lasix] 20 mg tablet 20 mg PO DAILY Qty: 5 0RF albuterol sulfate [Ventolin HFA] 90 mcg/actuation HFA aerosol inhaler 1 - 2 puff inhalation Q4H PRN PRN (Reason: Wheezing) Qty: 1 0RF Rx Instructions: please give spacer prednisone 20 mg tablet 40 mg PO DAILY Qty: 10 0RF cephalexin 500 mg capsule 500 mg PO Q12 Qty: 14 0RF ondansetron 4 mg tablet,disintegrating 4 mg PO Q8H PRN PRN (Reason: Nausea) Qty: 10 0RF sulfamethoxazole-trimethoprim 800-160 mg tablet 1 tab PO BID Qty: 6 0RF ibuprofen 800 mg tablet 800 mg PO Q8H PRN (Reason: pain) Qty: 20 0RF Stand Alone Forms: ED Work / School Excuse Primary Care Provider: Care Physician,No Primary Referrals: Nya Lopez DO [Med Staff - Active Staff] - As soon as possible Care Physician,No Primary [Primary Care Provider] - Activity Restrictions/Additional Instructions: Follow-up with [facility] as soon as possible. You have been diagnosed with multiple uterine fibroids with bleeding. Return with increased pain, new or worsening symptoms. Print Language: Ukrainian Disposition Disposition: Home, Self Care
[2023-09-07 16:20] LABS: Red Blood Cells-Urine 10-25 SEEN /hpf (0-5); Squamous Epithelial Cells - UA 5-10 SEEN /hpf (5-10); White Blood Cells 50-100 SEEN /hpf (0-5)
[2023-09-07 16:21] LABS: Amorphous Sediment 1+ URATE; Bacteria 1+ /hpf (None Seen); Transitional Epithelial - Ur 0-5 SEEN /hpf (0-5)
[2023-09-07 16:25] VITALS: BP 130/72; PULSE 80; RESP 16; O2SAT 99
[2023-09-07] MEDS: Ketorolac 15 MG/ML Vial IV (16:35)
[2023-09-07] MEDS: 0.9% Normal Saline (1000mL) 1,000 ML 999 ML IV (16:35)
[2023-09-07] MEDS: Ondansetron 4 MG/2 ML Vial IV (16:35)
[2023-09-07 16:36] LABS: Absolute Lymphocyte Count 2.49 X10^3/uL (0.83-4.51); Absolute Neutrophil Count 5.9 X10^3/uL (2.0-7.7); Basophil# 0.04 X10^3/uL; Basophil% 0.4 % (0-1); Eosinophil# 0.19 X10^3/uL; Hematocrit 32.6 % (37-47); Hemoglobin 9.6 g/dL (12.0-15.0); Lymphocyte # 2.49 X10^3/ul (0.83-4.51); Lymphocyte % 26.3 % (19-41); Mean Corp Hgb Conc 29.4 g/dL (32-36); Mean Corpuscular Hgb 21.4 pg (27.0-32.0); Mean Corpuscular Volume 72.6 fL (81-99); Mean Platelet Vol. 10.1 fl (6.2-12.0); Monocyte# 0.75 X10^3/uL; Monocyte% 7.9 % (0-10); NRBC Flagged by Analyzer 0 % (0-5); Neutrophil # 5.91 X10^3/uL (2.7-7.7); Neutrophil % 62.7 % (47-70); Platelet Count 350 K/mm3 (150-450); RBC Distribution Width CV 17.6 % (11.6-14.6); RBC Distribution Width SD 46.1 fl (35.1-43.9); Red Blood Count 4.49 M/mm3 (4.2-5.4); White Blood Count 9.5 K/mm3 (4.4-11.0)
[2023-09-07 16:55] LABS: Internal QC Validated? YES +Cl - CLEAR BKGD; Pregnancy, Serum, hCG Quali. NEGATIVE Negative; Record Kit Lot#, Serum Preg. 772476
[2023-09-07 17:02] LABS: ALB/GLOB Ratio 0.8 RATIO (0.9-2.4); AST(SGOT) 10 U/L (15-37); Alanine Aminotransfer ALT/SGPT 16 U/L (13-56); Albumin, Serum 3.3 g/dL (3.2-5.0); Alkaline Phosphatase 83 U/L (45-117); Anion Gap 5 (5-15); BUN 14 mg/dL (7-18); BUN/Creat Ratio 18.3 RATIO (10-20); Chloride 106 mmol/L (98-107); Creatinine, Serum 0.77 mg/dL (0.55-1.02); EST Glomerular Filtration Rate 84 mL/min (>60); Est Glom Filt Rate - Afr Amer 102 mL/min (>60); Estimated Creatinine Clearance 83.32 ml/min; Globulin 4.2 g/dL (2.2-4.2); Glucose 127 mg/dL (74-106); Potassium 3.6 mmol/L (3.5-5.1); Protein, Total 7.5 g/dL (6.4-8.2); Sodium Level 138 mmol/L (136-145)
[2023-09-07] MEDS: Smz/Tmp Ds Tablet 1 TABLET PO (18:27)
== END 2023-09-07 18:36 | disposition home or self-care (01) ==
PROVIDERS: Emergency Provider Emergency Medicine; Visit Provider Emergency Medicine
DX: D25.9 Leiomyoma of uterus, unspecified (principal); E11.9 Type 2 diabetes mellitus without complications; N39.0 Urinary tract infection, site not specified; E78.5 Hyperlipidemia, unspecified; I10 Essential (primary) hypertension; F17.290 Nicotine dependence, other tobacco product, uncomplicated; N93.9 Abnormal uterine and vaginal bleeding, unspecified; N85.2 Hypertrophy of uterus; R10.2 Pelvic and perineal pain; Z98.890 Other specified postprocedural states; J45.909 Unspecified asthma, uncomplicated
CPT/HCPCS: 74177; 80053; 81001; 84703; 85025; 96361; 96374; 96375; 99283; J7030; Q9967; A4216; J2405

== ENCOUNTER 2023-10-04 15:22 | Emergency (ER) | payer MEDICAID, SELFPAY ==
[2023-10-04 15:22] VITALS: BP 134/82; PULSE 83; RESP 16; TEMP 36.9; O2SAT 98; BMI 41.1
--- NOTE | 2023-10-04 15:36 | EDS_ITS ---
HPI HPI - Fall History of Present Illness Chief Complaint: Fall PFSH PFSH Medical History Hyperlipidemia Bipolar 1 disorder Hypertension Diabetes Asthma Home Medications ?Medication ?Instructions ?Recorded ?Last Taken ?Type simvastatin 20 mg tablet 20 mg PO QHS cholesterol 06/28/18 07/17/18 History albuterol sulfate 90 mcg/actuation 2 puff inhalation Q4H PRN PRN Sob 07/18/18 07/18/18 History aerosol inhaler (Proventil HFA) &/Or Wheezing fluoxetine 20 mg capsule 20 mg PO DAILY depression 07/18/18 07/17/18 History metformin 500 mg tablet 500 mg PO BID #20 tabs 05/25/22 Unknown Rx ondansetron 4 mg disintegrating 4 mg PO Q8H PRN PRN Nausea #7 tabs 08/24/22 Unknown Rx tablet ondansetron HCl 8 mg tablet 8 mg PO Q8H PRN nausea and 11/05/22 Unknown Rx vomiting #14 tabs benzonatate 200 mg capsule 200 mg PO TID PRN cough #20 caps 01/04/23 Unknown Rx budesonide-formoterol HFA 80 2 puff inhalation BID #10.2 grams 01/04/23 Unknown Rx mcg-4.5 mcg/actuation aerosol inhaler (Symbicort) furosemide 20 mg tablet (Lasix) 20 mg PO DAILY #5 tabs 02/10/23 Unknown Rx albuterol sulfate 90 mcg/actuation 1 - 2 puff inhalation Q4H PRN PRN 05/03/23 Unknown Rx aerosol inhaler (Ventolin HFA) Wheezing #1 inh prednisone 20 mg tablet 40 mg (2 x 20 mg) PO DAILY #10 tabs 05/03/23 Unknown Rx ibuprofen 800 mg tablet 800 mg PO Q8H PRN pain #20 tabs 07/03/23 Unknown Rx cephalexin 500 mg capsule 500 mg PO Q12 #14 CAPSULES 07/16/23 Unknown Rx ondansetron 4 mg disintegrating 4 mg PO Q8H PRN PRN Nausea #10 tabs 07/16/23 Unknown Rx tablet sulfamethoxazole 800 1 tab PO BID #6 TABLETS 08/09/23 Unknown Rx mg-trimethoprim 160 mg tablet ibuprofen 800 mg tablet 800 mg PO TID PRN pain #20 tabs 09/07/23 Unknown Rx sulfamethoxazole 800 1 tab PO BID #14 tabs 09/07/23 Unknown Rx mg-trimethoprim 160 mg tablet (Bactrim DS) Allergy/AdvReac Type Severity Reaction Status Date / Time Penicillins AdvReac Vomiting Verified 10/04/23 15:23 Surgical History Hx of cholecystectomy Hx of breast surgery Hx of tubal ligation Social History Smoking Status: Current every day smoker tobacco type: e-cigarettes EXAM Physical Exam Const Vital Signs: 10/04/23 15:22 10/04/23 15:30 Temperature 98.4 F Temperature Source Temporal Pulse Rate 83 Respiratory Rate 16 Respiratory Effort Normal Respiratory Depth Normal Respiratory Pattern Normal Blood Pressure 134/82 H Blood Pressure Mean 99 Pulse Ox 98 Oxygen Delivery Method Room Air Room Air MDM MDM MDM Narrative Medical decision making narrative: HISTORY OF PRESENT ILLNESS: 53-year-old female presents with fall. Notes headache and pain in right hand. Notes mechanical fall from standing at work. Notes head trauma no loss of conscious or vomiting. Notes she caught her cell with her right hand. Denies elbow pain or shoulder pain. Denies taking blood thinners REVIEW OF SYSTEMS: Pertinent positives: Headache, right hand pain Pertinent negatives: Numbness, tingling, loss of sensation PHYSICAL EXAM: Nursing triage notes reviewed, Vital signs reviewed Primary Survey Airway: Intact Breathing: Bilateral breath sounds Circulation: Palpable bilateral femorals, Palpable bilateral radial, Palpable bilateral DP and Palpable bilateral PT Disability / Spine precautions GCS Score: Eye Openin Verbal Response: 5 Motor Response: 6 Secondary Survey Constitutional: Please see MDM Head: Atraumatic, Midface stable, NO jaw malocclusion, No Cephalohematoma, and No Lacerations noted Eye: Pupils equal round and reactive to light, Extraocular muscles intact and No periorbital ecchymosis or stepoff, no evidence of entrapment ENT: Oropharynx clear, no lacerations, no hemotympanum, no raccoon eyes or bautista sign Cervical spine / Neck: No cervical spine bony tenderness, crepitance, or stepoff deformity Trachea midline Lungs: Clear to auscultation, No asymmetric rise and No crepitus, no flail chest Cardiac: Regular rate and rhythm and No murmurs Abdomen: Soft, Nontender and No rebound Pelvis: Pelvis stable to compression : No evidence of genital injury Back: No midline bony tenderness to thoracic/lumbar/sacral spines Neuro: At baseline, intact strength and sensation in bilateral upper and lower extremities. 2+ patellar reflexes bilaterally. Extremities: NO gross Deformities, TTP over right wrist Psych: Normal affect Nursing triage notes reviewed, Vital signs reviewed MEDICAL DECISION MAKING: Chief Complaint: Headache, hand pain Factors affecting care: History bipolar disorder, hypertension, diabetes and asthma Social determinants of health: n history mental health disorder MDM Narrative: Patient was hemodynamically stable, afebrile and nontoxic-appearing. Primary secondary trauma surveys concerning for intracranial, cervical spine injury or right hand injury. I Obtained imaging to further rule out emergencies. I gave Tylenol for symptomatic relief. ALL IMAGES (IF OBTAINED) HAVE BEEN PERSONALLY REVIEWED AND INTERPRETED BY MYSELF. X-ray of the right hand was read reviewed myself shows no evidence of obvious bony abnormality. CT scan of the head, cervical spine are negative for acute traumatic injury. Tertiary exam without new traumatic injury. Patient is appropriate discharge home. The patient and/or family, caregivers express understanding. The patient and/or family, caregivers agrees with the plan. Shared decision making: I will have a discussion with the patient and or visitors regarding risk/benefits of further testing or admission. They will be made aware of of the risk/benefits inherent in this decision they will be given the opportunity to voice understanding. Total critical care time today provided was at least 0 minutes. This excludes separately billable procedures. Critical care time (if documented) is secondary to the patient having high probability of clinically significant/life threatening deterioration in the patient's condition which required my urgent intervention. Impression: 1. Closed injury 2. Right hand contusion Dispo: Discharge home This note was generated with [employer] dictation software. It may contain incorrect words, spelling, and punctuation that were not noted in review of the chart prior to signing. Radiography Diagnostic Testing: Clinical Impression(s) from Imaging Studies Brain CT 10/04/23 15:37 IMPRESSION: Normal unenhanced CT scan of the brain. Electronically Signed: Jorge Naqvi MD at 16:26 EDT Reading Location ID and State: [facility] / [place] Tel , Service support , Cervical Spine CT 10/04/23 15:37 IMPRESSION: No fracture Electronically Signed: Jorge Naqvi MD at 16:24 EDT Reading Location ID and State: [facility] / [place] Tel , Service support , Hand X-Ray 10/04/23 16:00 IMPRESSION: Normal x-ray examination of the hand. Electronically Signed: Jorge Naqvi MD at 16:28 EDT [place] Location ID and State: [facility] / [place] Tel , Service support , Discharge Plan Triage Chief Complaint: Fall Other Complaint: Dizziness ED Provider: Luis Phillips Dx/Rx/DC Orders Prescriptions: No Action ondansetron HCl 8 mg tablet 8 mg PO Q8H PRN (Reason: nausea and vomiting) Qty: 14 0RF simvastatin 20 tablet 20 mg PO QHS albuterol sulfate [Proventil HFA] 6.7 GM HFA aerosol inhaler 2 puff inhalation Q4H PRN PRN (Reason: Sob &/Or Wheezing) fluoxetine 20 MG capsule 20 mg PO DAILY Patient Comments: TAKE 1 CAPSULE BY MOUTH DAILY metformin 500 mg tablet 500 mg PO BID Qty: 20 0RF ondansetron 4 mg tablet,disintegrating 4 mg PO Q8H PRN PRN (Reason: Nausea) Qty: 7 0RF budesonide-formoterol [Symbicort] 80-4.5 mcg/actuation HFA aerosol inhaler 2 puff inhalation BID Qty: 10.2 0RF benzonatate 200 mg capsule 200 mg PO TID PRN (Reason: cough) Qty: 20 0RF furosemide [Lasix] 20 mg tablet 20 mg PO DAILY Qty: 5 0RF albuterol sulfate [Ventolin HFA] 90 mcg/actuation HFA aerosol inhaler 1 - 2 puff inhalation Q4H PRN PRN (Reason: Wheezing) Qty: 1 0RF Rx Instructions: please give spacer prednisone 20 mg tablet 40 mg PO DAILY Qty: 10 0RF cephalexin 500 mg capsule 500 mg PO Q12 Qty: 14 0RF ondansetron 4 mg tablet,disintegrating 4 mg PO Q8H PRN PRN (Reason: Nausea) Qty: 10 0RF sulfamethoxazole-trimethoprim 800-160 mg tablet 1 tab PO BID Qty: 6 0RF sulfamethoxazole-trimethoprim [Bactrim DS] 800-160 mg tablet 1 tab PO BID Qty: 14 0RF ibuprofen 800 mg tablet 800 mg PO TID PRN (Reason: pain) Qty: 20 0RF ibuprofen 800 mg tablet 800 mg PO Q8H PRN (Reason: pain) Qty: 20 0RF Primary Care Provider: Desire Gonzales WORK DISTRIBUTOR Referrals: Care Physician,No Primary [Non-Staff] - Print Language: Guamanian
--- NOTE | 2023-10-04 15:37 | CT_ITS ---
STUDY: CT BRAIN WITHOUT CONTRAST REASON FOR EXAM: Female, 53 years old. head trauma RADIATION DOSAGE (If Supplied By Facility): CTDIvol = ( 44.99 ) mGy, DLP = ( 779.24 ) mGycm TECHNIQUE: Transaxial CT imaging of the brain was performed without administration of intravenous contrast material. Individualized dose optimization techniques were used for this CT. The protocol utilizes one or more of the following dose reduction techniques: automated exposure control, adjustment of mA and/or kV according to patient size,and/or use of iterative reconstruction technique. COMPARISON: CT brain August 09, 2023 FINDINGS: Normal soft tissue structures. Hyperostosis frontalis interna. Normal size ventricles and extra-axial spaces for the patient''s age. Normal white matter tracts of the cerebral hemispheres. Normal basal ganglia and thalami. Normal brainstem. Normal cerebellum. There is no intracranial hemorrhage. There are no findings of an acute ischemic infarction. Normal visualized paranasal sinuses. CT/Brain/Head without Contrast IMPRESSION: Normal unenhanced CT scan of the brain. Electronically Signed: Jorge Naqvi MD at 16:26 EDT ,
--- NOTE | 2023-10-04 15:37 | CT_ITS ---
STUDY: CT CERVICAL SPINE WITHOUT CONTRAST REASON FOR EXAM: Female, 53 years old. neck pain RADIATION DOSAGE (If Supplied By Facility): CTDIvol = ( 26.71 ) mGy, DLP = ( 438.40 ) mGycm TECHNIQUE: High resolution transaxial imaging was performed without contrast material. Sagittal and coronal images were reconstructed. Individualized dose optimization techniques were used for this CT. The protocol utilizes one or more of the following dose reduction techniques: automated exposure control, adjustment of mA and/or kV according to patient size,and/or use of iterative reconstruction technique. COMPARISON: None FINDINGS: Normal craniovertebral junction. Normal anterior atlantoaxial articulation. Normal odontoid process. Midline defect C1 posteriorly appears congenital. Normal cervical lordosis. Normal vertebral bodies and posterior osseous elements. C2-3: Normal endplates. Normal disc height and morphology. Normal central canal and intervertebral neuroforamina. C3-4: Normal endplates. Normal disc height and morphology. Normal central canal and intervertebral neuroforamina. C4-5: Normal endplates. Normal disc height and morphology. Normal central canal and intervertebral neuroforamina. C5-6: Normal endplates. Normal disc height and morphology. Normal central canal and intervertebral neuroforamina. C6-7: Normal endplates. Normal disc height and morphology. Normal central canal and intervertebral neuroforamina. C7-T1: Normal endplates. Normal disc height and morphology. Normal central canal and intervertebral neuroforamina. Normal visualized soft tissue structures. CT/Spine Cervical without Contras IMPRESSION: No fracture Electronically Signed: Jorge Naqvi MD at 16:24 EDT ,
[2023-10-04] MEDS: Acetaminophen 500 MG Tablet PO (15:54)
--- NOTE | 2023-10-04 16:00 | RAD_ITS ---
STUDY: X-RAY - RIGHT HAND REASON FOR EXAM: Female, 53 years old. pain TECHNIQUE: 3 view(s) of the hand. COMPARISON: July 03, 2023 FINDINGS: Normal radiocarpal articulation. Normal distal radioulnar joint. Normal visualized carpal bones. Normal carpal articulations Normal carpometacarpal articulation of the thumb. Normal second through fifth carpometacarpal joints. Normal metacarpi. Normal metacarpophalangeal joint of the thumb. Normal interphalangeal joint of the thumb. Normal proximal and distal phalanges of the thumb. Normal metacarpophalangeal joints of the second through fifth fingers. Normal proximal and distal interphalangeal joints of the second through fifth fingers. Normal phalanges of the second through fifth fingers. The soft tissue structures are unremarkable. RAD/Hand Min 3 Views IMPRESSION: Normal x-ray examination of the hand. Electronically Signed: Jorge Naqvi MD at 16:28 EDT ,
== END 2023-10-04 16:59 | disposition home or self-care (01) ==
PROVIDERS: Emergency Provider Emergency Medicine; PCP Nurse Practitioner Family; Visit Provider Emergency Medicine
DX: R42 Dizziness and giddiness (principal); F31.9 Bipolar disorder, unspecified; E11.9 Type 2 diabetes mellitus without complications; S09.90XA Unspecified injury of head, initial encounter; S60.221A Contusion of right hand, initial encounter; F17.290 Nicotine dependence, other tobacco product, uncomplicated; W18.30XA Fall on same level, unspecified, initial encounter; Y99.0 Civilian activity done for income or pay; E78.5 Hyperlipidemia, unspecified; R51.9 Headache, unspecified; I10 Essential (primary) hypertension; J45.909 Unspecified asthma, uncomplicated; Z79.84 Long term (current) use of oral hypoglycemic drugs; Z79.899 Other long term (current) drug therapy; Z79.51 Long term (current) use of inhaled steroids
CPT/HCPCS: 70450; 72125; 73130; 99283

== ENCOUNTER 2023-12-01 05:38 | Emergency (ER) | payer MEDICAID, SELFPAY ==
[2023-12-01] VITALS (7 sets, daily range): BP systolic 126–182; BP diastolic 79–108; PULSE 70–87; RESP 16–27; TEMP 36–37; O2SAT 97–100; BMI 42.3
--- NOTE | 2023-12-01 05:57 | CT_ITS ---
EXAM: CT Abdomen And Pelvis W/ Contrast Injection HISTORY: PAIN Pt to ED via ems for abd pain. Pt was supposed to have surgery Wednesday on a uterine fibroid but did not go. Pt states she has vaginal bleeding and said ''it feels like my insides are falling out''. Reports filling 3 pads per day TECHNIQUE: Routine protocol CT abdomen pelvis. IV Contrast: IV 100mL Isovue-370 . Oral Contrast: without. Sagittal and coronal images were reconstructed. RADIATION DOSAGE (If Supplied By Facility): CTDIvol = ( 16.08 ) mGy, DLP = ( 1224.75 ) mGycm Individualized dose optimization techniques were used for this CT. COMPARISON: CT abdomen and pelvis 09/07/2023. LIMITATIONS: None. FINDINGS: LOWER CHEST: Lung bases are clear. LIVER: Unremarkable. GALLBLADDER/BILE DUCTS: Gallbladder not identified presumed surgically absent. PANCREAS: Unremarkable. SPLEEN: Unremarkable. ADRENAL GLANDS: Unremarkable. KIDNEYS / URETERS: There is a 6 mm calculus in the right renal pelvis without hydronephrosis. Mild wall thickening of the wall of the right renal pelvis proximal ureter not significantly changed compared to prior. No hydronephrosis. Left kidney is unremarkable. BOWEL / MESENTERY: Unremarkable. No bowel obstruction. APPENDIX: Not identified. Likely surgically absent. PERITONEUM: No free air. No free fluid. VESSELS: Abdominal aorta is normal caliber. RETROPERITONEUM: Unremarkable. REPRODUCTIVE ORGANS: Uterus is enlarged and lobulated and heterogeneous likely fibroids, and mildly distended endometrial canal not significantly changed compared to prior. BLADDER: Unremarkable. ABDOMINAL WALL: Unremarkable. BONES: No acute abnormality. Bilateral pars defects at L5 with grade 1 spondylolisthesis L5-S1. OTHER: None. CT/Abdomen/Pelvis W IV Cont ONLY IMPRESSION: 1. Enlarged lobulated uterus likely fibroids, unchanged. 2. Right nephrolithiasis with nonobstructing stone in the renal pelvis. Wall thickening of the right renal pelvis and proximal ureter may be inflammatory secondary to the presence of the stone, or other inflammatory process pyelitis, not significantly changed. Follow-up is suggested as other etiologies including malignancy not entirely excluded. Electronically Signed: Natali Del Rio MD at 7:48 EDT ,
--- NOTE | 2023-12-01 06:05 | EDS_ITS ---
HPI HPI - Female History of Present Illness Chief Complaint: Female C/O Informant: patient and EMS Narrative Narrative: 53-year-old female presenting to the emergency room via EMS stating that something ruptured on her uterus. She states that she has been told that she has fibroids and that she was supposed to have surgery this past Wednesday but she could not get off work and so they rescheduled that. She states that tonight she felt something pop in her lower abdomen and believes that the fibroid has ruptured. She notes vaginal bleeding over the past 2 years and states that since starting an medication through her [employer] that has been improving. She denies any bowel symptoms or urinary symptoms. She denies any fevers. Patient was scheduled for a hysteroscopy D&C with fibroid and possible polyp resection, for thickened endoemtrium, possible endometrial polyps, AUB and type [address] Plunkett. [facility] Medical History Hyperlipidemia Bipolar 1 disorder Hypertension Diabetes Asthma Home Medications ?Medication ?Instructions ?Recorded ?Last Taken ?Type simvastatin 20 mg tablet 20 mg PO QHS cholesterol 06/28/18 07/17/18 History albuterol sulfate 90 mcg/actuation 2 puff inhalation Q4H PRN PRN Sob 07/18/18 07/18/18 History aerosol inhaler (Proventil HFA) &/Or Wheezing fluoxetine 20 mg capsule 20 mg PO DAILY depression 07/18/18 07/17/18 History metformin 500 mg tablet 500 mg PO BID #20 tabs 05/25/22 Unknown Rx benzonatate 200 mg capsule 200 mg PO TID PRN cough #20 caps 01/04/23 Unknown Rx budesonide-formoterol HFA 80 2 puff inhalation BID #10.2 grams 01/04/23 Unknown Rx mcg-4.5 mcg/actuation aerosol inhaler (Symbicort) albuterol sulfate 90 mcg/actuation 1 - 2 puff inhalation Q4H PRN PRN 05/03/23 Unknown Rx aerosol inhaler (Ventolin HFA) Wheezing #1 inh ibuprofen 800 mg tablet 800 mg PO Q8H PRN pain #20 tabs 07/03/23 Unknown Rx ibuprofen 800 mg tablet 800 mg PO TID PRN pain #20 tabs 09/07/23 Unknown Rx epinephrine 0.3 mg/0.3 mL UD 12/01/23 Unknown History injection, auto-injector ferrous sulfate 325 mg (65 mg 325 mg PO BID 12/01/23 Unknown History iron) tablet (FeroSul) glipizide 5 mg tablet, extended 5 mg PO DAILY 12/01/23 Unknown History release 24 hr losartan 50 mg tablet 50 mg PO BID 12/01/23 Unknown History norethindrone acetate 5 mg tablet 5 mg PO BID PRN PRN vag bleeding 12/01/23 Unknown History vitamin with calcium 1 tab PO DAILY 12/01/23 Unknown History no.72-iron 27 mg-folic acid 1 mg tablet (WesTab Plus) Allergy/AdvReac Type Severity Reaction Status Date / Time Penicillins AdvReac Vomiting Verified 12/01/23 05:42 Surgical History Hx of cholecystectomy Hx of breast surgery Hx of tubal ligation Social History Smoking Status: Current some day smoker tobacco type: e-cigarettes ROS ROS ED Constitutional Constitutional ED: Denies chills, fever(s) or weight loss Eyes Eyes: Denies change in vision or diplopia ENT ENT ED: Denies ear pain, rhinorrhea or sore throat Cardiovascular Cardiovascular: Denies chest pain, orthopnea, palpitations or racing heartbeat Respiratory/Chest Respiratory/Chest: Denies cough, dyspnea or orthopnea Gastrointestinal Gastrointestinal: Reports abdominal pain; Denies constipation, diarrhea, nausea or vomiting Genitourinary Genitourinary ED: Denies dysuria, hematuria or urinary frequency Musculoskeletal Musculoskeletal: Denies arthralgias or myalgias Integumentary Denies abscess or rash Neurologic Neurologic: Denies headache(s) or weakness Psychiatric Psychiatric: Denies anxiety, depression, suicidal ideation or suicidal thoughts Endocrine Endocrinology: Denies polydipsia, polyphagia or polyuria Allergic/Immunologic Allergic/Immunologic ED: Denies mouth swelling, tongue swelling or urticaria EXAM Physical Exam Const Vital Signs: 12/01/23 05:39 12/01/23 05:42 Temperature 97.5 F L 97.5 F L Temperature Source Oral Oral Pulse Rate 87 86 Respiratory Rate 18 16 Blood Pressure 182/108 H 182/108 H Blood Pressure Mean 132 132 Pulse Ox 100 99 Oxygen Delivery Method Room Air Room Air Positive well nourished, well developed and obese General Appearance ED: well developed and NAD Nutritional Appearance: obese HEENT Reports normocephalic, head/scalp atraumatic and moist mucous membranes Eyes PERRL and EOMs intact bilaterally Neck no lymphadenopathy, supple and no JVD Resp normal respiratory effort and clear to auscultation bilaterally Cardio regular rate, regular rhythm and no murmurs GI normal to inspection, nondistended, normoactive bowel sounds and non-tender Palpation: soft Back/Spine no CVA tenderness and normal ROM Extremity normal to inspection General Extremety ED: Negative for edema General Extremity: Negative for edema Neuro oriented x3 and CN's II-XII intact bilaterally Sensorium / Orientation: alert Motor Exam: strength 5/5 throughout Psych mental status grossly normal Mood & Affect: Negative for depressed or tearful Skin no rashes or lesions noted and no wounds Discharge Plan Triage Chief Complaint: Female C/O ED Provider: Gabe Barreto Dx/Rx/DC Orders Prescriptions: No Action simvastatin 20 tablet 20 mg PO QHS albuterol sulfate [Proventil HFA] 6.7 GM HFA aerosol inhaler 2 puff inhalation Q4H PRN PRN (Reason: Sob &/Or Wheezing) fluoxetine 20 MG capsule 20 mg PO DAILY Patient Comments: TAKE 1 CAPSULE BY MOUTH DAILY metformin 500 mg tablet 500 mg PO BID Qty: 20 0RF budesonide-formoterol [Symbicort] 80-4.5 mcg/actuation HFA aerosol inhaler 2 puff inhalation BID Qty: 10.2 0RF benzonatate 200 mg capsule 200 mg PO TID PRN (Reason: cough) Qty: 20 0RF albuterol sulfate [Ventolin HFA] 90 mcg/actuation HFA aerosol inhaler 1 - 2 puff inhalation Q4H PRN PRN (Reason: Wheezing) Qty: 1 0RF Rx Instructions: please give spacer ibuprofen 800 mg tablet 800 mg PO TID PRN (Reason: pain) Qty: 20 0RF glipizide 5 mg tablet extended release 24hr 5 mg PO DAILY norethindrone acetate 5 mg tablet 5 mg PO BID PRN PRN (Reason: vag bleeding) WesTab Plus 27 mg iron- 1 mg tablet 1 tab PO DAILY losartan 50 mg tablet 50 mg PO BID ferrous sulfate [FeroSul] 325 mg (65 mg iron) tablet 325 mg PO BID epinephrine 0.3 mg/0.3 mL auto-injector UD ibuprofen 800 mg tablet 800 mg PO Q8H PRN (Reason: pain) Qty: 20 0RF Primary Care Provider: Desire Gonzales NP Referrals: Desire Gonzales BANKING [employer] FINANCE INSTRUCTOR, [employer]ING [employer] FINANCE INSTRUCTOR-[employer] [Primary Care Provider] - Print Language: Maltese
[2023-12-01 06:15] LABS: Absolute Lymphocyte Count 3.44 X10^3/uL (0.83-4.51); Absolute Neutrophil Count 5.6 X10^3/uL (2.0-7.7); Basophil# 0.05 X10^3/uL; Basophil% 0.5 % (0-1); Eosinophil# 0.24 X10^3/uL; Eosinophils% 2.3 % (0-5); Hematocrit 25.2 % (37-47); Hemoglobin 7.1 g/dL (12.0-15.0); Lymphocyte # 3.44 X10^3/ul (0.83-4.51); Lymphocyte % 33.5 % (19-41); Mean Corp Hgb Conc 28.2 g/dL (32-36); Mean Corpuscular Hgb 20.9 pg (27.0-32.0); Mean Corpuscular Volume 74.1 fL (81-99); Mean Platelet Vol. 10.7 fl (6.2-12.0); Monocyte% 8.8 % (0-10); NRBC Flagged by Analyzer 0 % (0-5); Neutrophil # 5.59 X10^3/uL (2.7-7.7); Neutrophil % 54.4 % (47-70); Platelet Count 307 K/mm3 (150-450); RBC Distribution Width CV 19.8 % (11.6-14.6); RBC Distribution Width SD 50.9 fl (35.1-43.9); White Blood Count 10.3 K/mm3 (4.4-11.0)
[2023-12-01 06:29] LABS: Anion Gap 5 (5-15); BUN 14 mg/dL (7-18); BUN/Creat Ratio 17.2 RATIO (10-20); Calcium,Total 8.4 mg/dL (8.5-10.1); Chloride 111 mmol/L (98-107); Creatinine, Serum 0.81 mg/dL (0.55-1.02); EST Glomerular Filtration Rate 79 mL/min (>60); Est Glom Filt Rate - Afr Amer 95 mL/min (>60); Estimated Creatinine Clearance 81.44 ml/min; Glucose 124 mg/dL (74-106); Potassium 3.7 mmol/L (3.5-5.1); Sodium Level 140 mmol/L (136-145)
--- NOTE | 2023-12-01 08:11 | ED.RN ---
Patient prompted for urine specimen and assisted with ambulation to the restroom.
[2023-12-01 08:20] LABS: Mucous, Urine 0 SEEN /hpf (<or=2+); Squamous Epithelial Cells - UA 0 SEEN /hpf (5-10)
[2023-12-01 08:34] LABS: Color, Urine Red (Yellow); Glucose, Dipstick Normal (Normal); Ketone-Dipstick Negative (Negative); Leukocyte Esterase-Dipstick 500 /ul (Negative); Nitrite-Dipstick Positive (Negative); Occult Blood-Urine 250 /ul (Negative); Protein-Dipstick 100 mg/dl (Negative); Urine Bilirubin Dipstick Negative (Negative); Urine Clarity Cloudy (Clear); Urine Urobilinogen 1 mg/dl (Normal)
[2023-12-01 08:45] LABS: Bacteria 1+ /hpf (None Seen); Red Blood Cells-Urine 25-50 SEEN /hpf (0-5); White Blood Cells 10-25 SEEN /hpf (0-5)
[2023-12-01 09:03] LABS: Ferritin 5 ng/mL (8-252); Iron 15 ug/dL (50-170); Iron Binding Capacity,Total 417 ug/dL (250-450); PERCENT IRON SATURATION 3.6 % (15.0-55.0)
[2023-12-01] MEDS: Cefdinir 300 MG Capsule PO (10:44)
== END 2023-12-01 12:30 | disposition home or self-care (01) ==
PROVIDERS: Emergency Medicine; Emergency Provider Emergency Medicine; PCP Nurse Practitioner Family; Visit Provider Emergency Medicine
DX: N39.0 Urinary tract infection, site not specified (principal); E11.9 Type 2 diabetes mellitus without complications; N93.9 Abnormal uterine and vaginal bleeding, unspecified; E78.5 Hyperlipidemia, unspecified; I10 Essential (primary) hypertension; J45.909 Unspecified asthma, uncomplicated; Z79.84 Long term (current) use of oral hypoglycemic drugs; Z79.899 Other long term (current) drug therapy; F17.290 Nicotine dependence, other tobacco product, uncomplicated; E66.9 Obesity, unspecified; D64.9 Anemia, unspecified; D25.9 Leiomyoma of uterus, unspecified; N20.0 Calculus of kidney
CPT/HCPCS: 74177; 80048; 81001; 82728; 83540; 83550; 85025; 86850; 86900; 86901; 86920; 86922; 87077; 87086; 87088; 99283; A4216; J7050; P9016; Q9967; 87186

== ENCOUNTER 2023-12-02 12:51 | Observation (INO) | payer MEDICAID, SELFPAY ==
[2023-12-02] VITALS (15 sets, daily range): BP systolic 93–178; BP diastolic 49–108; PULSE 71–112; RESP 13–30; TEMP 36.6–37.1; O2SAT 96–99; BMI 41.5; BMI 40.0
[2023-12-02 13:13] LABS: Absolute Lymphocyte Count 2.57 X10^3/uL (0.83-4.51); Basophil# 0.04 X10^3/uL; Basophil% 0.4 % (0-1); Eosinophil# 0.23 X10^3/uL; Eosinophils% 2.2 % (0-5); Hematocrit 28.7 % (37-47); Hemoglobin 8.5 g/dL (12.0-15.0); Lymphocyte # 2.57 X10^3/ul (0.83-4.51); Lymphocyte % 24.2 % (19-41); Mean Corp Hgb Conc 29.6 g/dL (32-36); Mean Corpuscular Volume 74.2 fL (81-99); Mean Platelet Vol. 10.2 fl (6.2-12.0); Monocyte# 0.73 X10^3/uL; Monocyte% 6.9 % (0-10); NRBC Flagged by Analyzer 0 % (0-5); Neutrophil % 65.9 % (47-70); Platelet Count 293 K/mm3 (150-450); RBC Distribution Width CV 19.7 % (11.6-14.6); RBC Distribution Width SD 51.3 fl (35.1-43.9); Red Blood Count 3.87 M/mm3 (4.2-5.4); White Blood Count 10.6 K/mm3 (4.4-11.0)
[2023-12-02 13:27] LABS: ALB/GLOB Ratio 0.8 RATIO (0.9-2.4); AST(SGOT) 8 U/L (15-37); Alanine Aminotransfer ALT/SGPT 19 U/L (13-56); Albumin, Serum 3.2 g/dL (3.2-5.0); Alkaline Phosphatase 65 U/L (45-117); Anion Gap 5 (5-15); BUN 15 mg/dL (7-18); BUN/Creat Ratio 19.6 RATIO (10-20); Calcium,Total 8.8 mg/dL (8.5-10.1); Chloride 110 mmol/L (98-107); Creatinine, Serum 0.77 mg/dL (0.55-1.02); EST Glomerular Filtration Rate 84 mL/min (>60); Est Glom Filt Rate - Afr Amer 102 mL/min (>60); Estimated Creatinine Clearance 84.79 ml/min; Glucose 108 mg/dL (74-106); Potassium 3.8 mmol/L (3.5-5.1); Protein, Total 7.2 g/dL (6.4-8.2); Sodium Level 138 mmol/L (136-145)
--- NOTE | 2023-12-02 13:43 | EDS_ITS ---
<Statement entered by Darryl Cordoba DO - 12/02/23 21:00> Patient was seen and examined with nurse genaro Gilliam All components of the history and physical confirmed and agreed. History of present illness and physical exam: Patient is a 53-year-old female past medical history bipolar, hypertension, hyperlipidemia, history of uterine cancer. Patient was seen here yesterday and was noted to have significant bleeding from her fibroids in her uterus according the patient. States that she is supposed to have surgery last Wednesday however secondary not being able to get out of work should not have surgery then. Patient states that she has been having continued bleeding and her hemoglobin was 7.1 yesterday she received 1 unit of packed red blood cells and was ultima tely discharged home. She states that today she returns for worsening bleeding and feeling lightheaded. Review of systems: Agree with above Physical exam: Agree with above MDM Patient is a 53-year-old female who presented to the emerged part with a chief complaint of lightheadedness, increased bleeding. Patient will have workup performed here on the differential diagnose clues but limited to fibroids, anemia. Once workup is obtained reviewed she will be reevaluated. Patient's CBC was reviewed and was significant for leukocytosis of 10,000, hemoglobin dropped to was noted to be 8.5 after unit of blood yesterday, platelet count normal at 246. Patient's sodium was noted be normal at 130, potassium low at 3.8, creatinine normal at 0.77.. Patient's AST and ALT were 8 and 19 respectively. Nurse practitioner Mane did discussed the case with the PROJECT DEVELOPMENT MANAGER team and they are recommending her to follow-up in the outpatient tomorrow with them. We did repeat a CBC approximately 2 hours later and her hemoglobin dropped from 8.5-7.6 and she became mildly tachycardic with this. Called back to the PROJECT DEVELOPMENT MANAGER team for admission and they states that she can go home and follow-up with them tomorrow again. Called and discussed case with hospitalist who states that this is primarily a PROJECT DEVELOPMENT MANAGER issue that they need to admit the patient. We called back and I discussed case with the on-call PROJECT DEVELOPMENT MANAGER who will accept patient for admission. As I do feel that since she has become tachycardic and has had a significant drop in her hemoglobin in a short period of time that she will likely continue to drop her hemoglobin as she is continue to bleed here in the emergency department. Patient was notified is agreeable this plan all question concerns answered. Final impression: Vaginal bleeding Lightheadedness Disposition: Patient will be admitted to the hospital Supervising attending attestation: Darryl Cordoba D.O. [facility] HPI - Female History of Present Illness Chief Complaint: Vag Bleeding Narrative Narrative: Patient is a 53-year-old female with history of bipolar, hypertension hyperlipidemia history of uterine cancer. Patient was seen here yesterday, she has been having significant bleeding from her fibroids in her uterus. Patient was supposed to have surgery last Wednesday however secondary to not being get out of work at [employer], she did not have surgery then. Pay states has been having continued bleeding, her hemoglobin was 7.1 yesterday and she received 1 unit of packed red blood cells here. Patient states that pain and bleeding is worse and she is here for reevaluation. She also states she is feeling dizzy and lightheaded. [facility] Medical History (Updated 12/09/23 @ 00:02 by Background Daembrenda) Restless legs Anxiety Depression Sleep apnea Irregular heart beat Seizures TIA (transient ischemic attack) Hyperlipidemia Bipolar 1 disorder Hypertension Diabetes Asthma Home Medications ?Medication ?Instructions ?Recorded ?Last Taken ?Type fluoxetine 20 mg capsule 20 mg PO DAILY depression 07/18/18 12/01/23 History metformin 500 mg tablet 500 mg PO BID #20 tabs 05/25/22 12/01/23 Rx budesonide-formoterol HFA 80 2 puff inhalation BID #10.2 grams 01/04/23 12/01/23 Rx mcg-4.5 mcg/actuation aerosol inhaler (Symbicort) ibuprofen 800 mg tablet 800 mg PO TID PRN pain #20 tabs 09/07/23 12/01/23 Rx cefdinir 300 mg capsule 300 mg PO Q12H #14 caps 12/01/23 Unknown Rx epinephrine 0.3 mg/0.3 mL 0.3 mg IM UD PRN anaphylaxis 12/01/23 Unknown History injection, auto-injector ferrous sulfate 325 mg (65 mg 325 mg PO BID 12/01/23 12/01/23 History iron) tablet (FeroSul) glipizide 5 mg tablet, extended 5 mg PO DAILY 12/01/23 12/01/23 History release 24 hr norethindrone acetate 5 mg tablet 5 mg PO BID PRN vag bleeding 12/01/23 12/02/23 History vitamin with calcium 1 tab PO DAILY 12/01/23 12/01/23 History no.72-iron 27 mg-folic acid 1 mg tablet (WesTab Plus) acetaminophen 500 mg tablet 500 mg PO Q6H PRN pain 12/02/23 12/01/23 History albuterol sulfate 90 mcg/actuation 1 - 2 puff inhalation Q4H PRN 12/02/23 Unknown History aerosol inhaler (Ventolin HFA) Wheezing aripiprazole 5 mg tablet 5 mg PO DAILY 12/02/23 12/01/23 History losartan 25 mg tablet 25 mg PO DAILY 12/02/23 12/01/23 History oxybutynin chloride 5 mg 5 mg PO DAILY 12/02/23 12/01/23 History tablet,extended release 24 hr simvastatin 80 mg tablet 80 mg PO QHS 12/02/23 12/01/23 History Allergy/AdvReac Type Severity Reaction Status Date / Time Penicillins AdvReac Vomiting Verified 12/02/23 12:52 Surgical History (Updated 12/03/23 @ 10:[address] Marcos Medina MD) S/P dilatation and curettage Hx of cholecystectomy Hx of breast surgery Hx of tubal ligation Social History Smoking Status: Current some day smoker tobacco type: e-cigarettes ROS ROS ED ROS Narrative Constitutional: Negative for fever, chills, weight loss. Positive for generalized weakness Eyes: Negative for vision loss, vision change, double vision ENT: Negative for any sore throat, ear pain, congestion Cardiovascular: Negative for any chest pain, tightness, palpitations Respiratory: Negative for any cough, sputum production, hemoptysis, dyspnea, dyspnea on exertion, orthopnea Gastrointestinal: Negative for any vomiting, diarrhea, constipation, blood in stool, blood in vomit. Positive abdominal pain, nausea : Negative for any urinary frequency, dysuria, retention, blood in urine. Positive for vaginal bleeding Muscle skeletal: Negative for any neck pain, back pain Neurological: Negative for any headache, syncope, dizziness Skin: Negative for any rashes, itching, abrasions, lacerations Psychiatric: Negative for any depression, anxiety, stress, suicidal ideation, homicidal ideation Hematologic: Negative for any excessive bruising, easy bleeding EXAM Physical Exam Narrative Exam Narrative: Vital signs reviewed. Patient's blood pressure is stable, patient is nontachycardic, she is slightly pale, does appear to be in mild distress secondary to pain. HEET: Head normocephalic atraumatic, TMs clear bilaterally. Posterior pharynx is clear, moist mucous membranes. Nares clear bilaterally. Neck: Supple with no lymphadenopathy or tenderness. No signs of meningismus. Cardiac: Regular rate and rhythm no murmurs gallops or rubs, equal peripheral pulses bilaterally. Respiratory: Lungs clear to auscultation bilaterally. No chest tenderness. Abdomen: Soft, nondistended. No abdominal bruit or pulsatile masses. No hepatospleno. Tenderness to the lower abdomen megaly Extremities: No peripheral edema, no signs of gross trauma or deformity. Active full range of motion of all extremities. Neuro: Cranial nerves II through XII intact, no focal neurological deficits. Skin: Clean dry and intact with no rash, purpura, petechiae, vesicles or pustules. Pale appearance Backs/flank: No CVA tenderness, no midline spinal tenderness, no deformity. Psych: Normal mood and affect. No SI, HI or acute psychosis. Const Vital Signs: 12/02/23 12:52 12/02/23 13:51 12/02/23 14:51 Temperature 98.1 F Temperature Source Oral Pulse Rate 83 76 71 Respiratory Rate 18 18 15 Blood Pressure 132/95 H 124/77 H 129/79 H Blood Pressure Mean 107 92 95 Pulse Ox 99 99 96 Oxygen Delivery Method Room Air 12/02/23 15:50 12/02/23 16:56 12/02/23 16:56 Temperature Temperature Source Pulse Rate 75 110 H 103 H Respiratory Rate 16 15 Blood Pressure 116/63 178/108 H Blood Pressure Mean 80 131 Pulse Ox 99 98 Oxygen Delivery Method Room Air 12/02/23 17:00 12/02/23 17:00 12/02/23 17:00 Temperature Temperature Source Pulse Rate 97 112 H 97 Respiratory Rate 21 H 30 H 16 Blood Pressure 172/80 H 172/80 H 172/80 H Blood Pressure Mean 110 110 108 Pulse Ox 98 99 98 Oxygen Delivery Method Room Air Room Air 12/02/23 17:15 12/02/23 17:30 12/02/23 17:37 Temperature 98.7 F Temperature Source Pulse Rate 97 86 86 Respiratory Rate 20 H 19 H 13 Blood Pressure 160/103 H 144/72 H 144/72 H Blood Pressure Mean 119 93 96 Pulse Ox 99 97 98 Oxygen Delivery Method 12/02/23 17:45 Temperature Temperature Source Pulse Rate 90 Respiratory Rate 19 H Blood Pressure 119/74 Blood Pressure Mean 83 Pulse Ox 99 Oxygen Delivery Method MDM MDM Lab Data Labs: Laboratory Results - last 24 hr 12/02/23 12/02/23 12/02/23 13:05 13:45 16:00 WBC 10.6 12.5 H RBC 3.87 L 3.48 L Hgb 8.5 L 7.6 L Hct 28.7 L 26.0 L MCV 74.2 L 74.7 L MCH 22.0 L 21.8 L MCHC 29.6 L 29.2 L RDW Std Deviation 51.3 H 52.7 H RDW Coeff of Yohannes 19.7 H 19.7 H Plt Count 293 246 MPV 10.2 9.9 Immature Gran % (Auto) 0.400 0.400 Neut % (Auto) 65.9 73.9 H Lymph % (Auto) 24.2 17.8 L [place] % (Auto) 6.9 6.0 Eos % (Auto) 2.2 1.4 Baso % (Auto) 0.4 0.5 Absolute Neuts (auto) 7.0 9.3 H Absolute Lymphs (auto) 2.57 2.23 Nucleated RBC % 0 0 PT 14.5 INR 1.1 Sodium 138 Potassium 3.8 Chloride 110 H Carbon Dioxide 24.0 Anion Gap 5 BUN 15 Creatinine 0.77 Estim Creat Clear Calc 84.79 Est GFR (MDRD) Af Amer 102 Est GFR (MDRD) Non-Af 84 BUN/Creatinine Ratio 19.6 Glucose 108 H Calcium 8.8 Total Bilirubin 0.40 AST 8 L ALT 19 Alkaline Phosphatase 65 Total Protein 7.2 Albumin 3.2 Globulin 4.0 Albumin/Globulin Ratio 0.8 L Treatment and Re-Evaluation Narrative: Differential diagnosis includes however is not limited to: Bleeding uterine fibroids, ongoing anemia, hematoma, mass Patient is not tachycardic, patient's blood pressure is stable, presenting to the emergency department for ongoing abdominal pain, vaginal bleeding. Patient was seen here yesterday for the same. Patient will receive IV fluids, IV Zofran, IV morphine.Patient's laboratory values show the patient has a stable anemia with a hemoglobin of 8.5, yesterday was 7.1, this is post transfusion. Chemistries were unremarkable. Patient will be ordered PT/INR, I will reach out to PROJECT DEVELOPMENT MANAGER for further instructions. Spoke with PROJECT DEVELOPMENT MANAGER, the PROJECT DEVELOPMENT MANAGER doctor aidan, states since the hemoglobin is stable 8.5, the patient's vital signs are stable, she believes that she can be discharged home to follow-up outpatient tomorrow to have the surgery. Patient will remain in the emergency department until 4 PM will she will have a repeat CBC with differential, as long as this is stable, the patient's vital signs remained stable, the patient will be discharged home. Patient's repeat CBC showed a leukocytosis with white blood count 12.5, patient's hemoglobin was 7.6, this is a substantial drop from 2 hours ago. Secondary this, we will reach out to PROJECT DEVELOPMENT MANAGER for further consult. We spoke with PROJECT DEVELOPMENT MANAGER, they will admit the patient. Patient be given more IV pain medicine. Patient be set up for surgery tomorrow. Discharge Plan Dx/Rx/DC Orders Clinical Impression: Abnormal vaginal bleeding, Anemia, Abdominal pain Disposition Disposition: Acute Care Hospital [facility] Discharge Date/Time: 12/02/23 18:21
[2023-12-02 14:18] LABS: International Normalized Ratio 1.1; Prothrombin Time (Protime)PT. 14.5 SECONDS (11.7-14.9)
[2023-12-02] MEDS: Ondansetron 4 MG/2 ML Vial IV (14:32)
[2023-12-02] MEDS: Morphine 4 MG/ML Syringe IV ×2 (14:32→17:08)
[2023-12-02 16:06] LABS: Absolute Lymphocyte Count 2.23 X10^3/uL (0.83-4.51); Absolute Neutrophil Count 9.3 X10^3/uL (2.0-7.7); Basophil# 0.06 X10^3/uL; Basophil% 0.5 % (0-1); Eosinophil# 0.18 X10^3/uL; Eosinophils% 1.4 % (0-5); Hemoglobin 7.6 g/dL (12.0-15.0); Lymphocyte # 2.23 X10^3/ul (0.83-4.51); Lymphocyte % 17.8 % (19-41); Mean Corp Hgb Conc 29.2 g/dL (32-36); Mean Corpuscular Hgb 21.8 pg (27.0-32.0); Mean Corpuscular Volume 74.7 fL (81-99); Mean Platelet Vol. 9.9 fl (6.2-12.0); Monocyte# 0.75 X10^3/uL; NRBC Flagged by Analyzer 0 % (0-5); Neutrophil # 9.27 X10^3/uL (2.7-7.7); Neutrophil % 73.9 % (47-70); Platelet Count 246 K/mm3 (150-450); RBC Distribution Width CV 19.7 % (11.6-14.6); RBC Distribution Width SD 52.7 fl (35.1-43.9); Red Blood Count 3.48 M/mm3 (4.2-5.4); White Blood Count 12.5 K/mm3 (4.4-11.0)
[2023-12-02] MEDS: Dicyclomine 20 MG/2 ML Vial IM (18:19)
--- NOTE | 2023-12-02 19:39 | PCM.PN.BLA ---
Progress Note ED called and reported that patient was tachycardia. Decision made to admit patient. Please refer to H&P from . Currently patient feels well and states bleeding is minimal. Assessment & Plan Assessment/Plan (1) Abnormal vaginal bleeding: (2) Fibroid, uterine: QUALIFIERS: Uterine leiomyoma location: unspecified location Qualified Code(s): D25.9 - Leiomyoma of uterus, unspecified (3) Chronic blood loss anemia: PLAN: Plan Please refer to H&P from . Plan for overnight observation and surgery tomorrow as patient presented to ED for the second day in a row with vaginal bleeding and anemia. Heme - she is HDS. Plan for repeat CBC in the AM.
[2023-12-02] MEDS: 0.9% Normal Saline (1000mL) 1,000 ML 125 ML IV (20:13)
[2023-12-02] MEDS: ARIPiprazole 5 MG Tablet PO (21:28)
[2023-12-02] MEDS: FLUoxetine 20 MG Capsule PO (21:28)
[2023-12-02] MEDS: Cefdinir 300 MG Capsule PO (21:29)
[2023-12-02] MEDS: Tolterodine Tartrate 2 MG CAP.SA PO (21:29)
[2023-12-02 22:11] LABS: Bedside Glucose 197 mg/dL (74-106)
[2023-12-02] MEDS: Ibuprofen 400 MG Tablet 800 MG PO (22:32)
[2023-12-02] MEDS: Albuterol 2.5 MG/3 ML VIAL.NEB. INHALATION (23:30)
[2023-12-03] VITALS (13 sets, daily range): BP systolic 104–154; BP diastolic 60–91; PULSE 73–87; RESP 16–20; TEMP 36.1–36.7; O2SAT 94–100; BMI 40.0
--- NOTE | 2023-12-03 05:00 | EKG12_ITS ---
Test Reason : AM EKG Blood Pressure : / mmHG Vent. 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
[2023-12-03 05:30] LABS: Bedside Glucose 148 mg/dL (74-106)
[2023-12-03] MEDS: 0.9% Normal Saline (1000mL) 1,000 ML 125 ML IV (05:35)
[2023-12-03] MEDS: Albuterol 2.5 MG/3 ML VIAL.NEB. INHALATION (07:15)
[2023-12-03] MEDS: Budesonide Respules 0.5 MG/2 ML AMPUL.NEB. INHALATION (07:15)
[2023-12-03 07:17] LABS: Absolute Lymphocyte Count 2.43 X10^3/uL (0.83-4.51); Absolute Neutrophil Count 7.6 X10^3/uL (2.0-7.7); Basophil# 0.05 X10^3/uL; Basophil% 0.4 % (0-1); Eosinophil# 0.21 X10^3/uL; Eosinophils% 1.9 % (0-5); Hemoglobin 7.1 g/dL (12.0-15.0); Lymphocyte # 2.43 X10^3/ul (0.83-4.51); Lymphocyte % 21.8 % (19-41); Mean Corp Hgb Conc 29.6 g/dL (32-36); Mean Corpuscular Hgb 22.2 pg (27.0-32.0); Mean Platelet Vol. 10.7 fl (6.2-12.0); Monocyte# 0.87 X10^3/uL; Monocyte% 7.8 % (0-10); NRBC Flagged by Analyzer 0 % (0-5); Neutrophil # 7.57 X10^3/uL (2.7-7.7); Neutrophil % 67.7 % (47-70); Platelet Count 216 K/mm3 (150-450); RBC Distribution Width CV 19.8 % (11.6-14.6); RBC Distribution Width SD 53.7 fl (35.1-43.9); White Blood Count 11.2 K/mm3 (4.4-11.0)
[2023-12-03 07:47] LABS: ALB/GLOB Ratio 0.8 RATIO (0.9-2.4); AST(SGOT) 7 U/L (15-37); Alanine Aminotransfer ALT/SGPT 16 U/L (13-56); Albumin, Serum 2.6 g/dL (3.2-5.0); Alkaline Phosphatase 61 U/L (45-117); Anion Gap 6 (5-15); BUN 13 mg/dL (7-18); BUN/Creat Ratio 17.3 RATIO (10-20); Calcium,Total 7.8 mg/dL (8.5-10.1); Chloride 112 mmol/L (98-107); Creatinine, Serum 0.75 mg/dL (0.55-1.02); EST Glomerular Filtration Rate 86 mL/min (>60); Est Glom Filt Rate - Afr Amer 105 mL/min (>60); Estimated Creatinine Clearance 85.27 ml/min; Globulin 3.4 g/dL (2.2-4.2); Glucose 168 mg/dL (74-106); Potassium 3.6 mmol/L (3.5-5.1); Sodium Level 140 mmol/L (136-145)
[2023-12-03 08:17] LABS: Partial Thromboplast Time 24.5 Seconds (24.1-36.2)
[2023-12-03 08:39] LABS: Hemoglobin A1c 5.6 % (3.8-5.6)
--- NOTE | 2023-12-03 10:44 | PRE.ANES_ITS ---
ASA Classification* ASA Classification ASA Classification: 2 Assessment & Plan Anesthesia* Anesthesia Assessment Anesthesia Assessment: Discussed sedation and/or anesthesia options, risks, benefits, and alternatives with patient/parents/legal guardian/POA. Questions invited. The patient/parents/legal guardian/POA seems to understand and agrees to proceed with anesthesia plan. Reviewed the physical assessment, medical history, allergy history and patient home medications list prior to surgery/procedure/anesthetic and documented any changes. Performed airway and anesthesia risk assessments. Anesthesia Type Anesthesia Type: MAC History Source History Obtained from:: Patient and Chart Anesthesia Focused Assessment* Temperature: 97.9 F Pulse Rate: 83 Blood Pressure: 127/63 Respiratory Rate: 16 Pulse Ox: 100 Oxygen Delivery Method: Room Air Airway Assessment Mouth opens: >3 cm Mallampati Score: II Teeth Condition: Chipped/Broken (Patient has chipped tooth left lower molar) and Missing (Patient has multiple missing teeth.) Neck Range of motion (ROM): Limited ROM (Slight decrease in extension) Pertinent Findings EKG Pertinent Findings:: December 03, 2023. Normal sinus rhythm. Inferior infarct. Focused Labs Anesthesia Preop lab: CBC WBC 11.2 K/mm3 (4.4-11.0) H 12/03/23 06:44 RBC 3.20 M/mm3 (4.2-5.4) L 12/03/23 06:44 Hgb 7.1 g/dL (12.0-15.0) L 12/03/23 06:44 Hct 24.0 % (37-47) L 12/03/23 06:44 Plt Count 216 K/mm3 (150-450) 12/03/23 06:44 CHEMISTRY Potassium 3.6 mmol/L (3.5-5.1) 12/03/23 06:44 Sodium 140 mmol/L (136-145) 12/03/23 06:44 BUN 13 mg/dL (7-18) 12/03/23 06:44 Creatinine 0.75 mg/dL (0.55-1.02) 12/03/23 06:44 Glucose 168 mg/dL (74-106) H 12/03/23 06:44 POC Glucose 148 mg/dL (74-106) H 12/03/23 05:10 COAG PT 14.5 SECONDS (11.7-14.9) 12/02/23 13:45 HCG, Quant < 1 mIU/mL (<9 non-preg) 03/12/12 12:46 Urine Test Negative Negative 09/09/22 14:07 Pre-Assessment Diagnosis/Proposed Procedure Planned Operative Procedure(s): Hysteroscopy dilatation and curettage fibroid resection possible polyp resection. 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 When Was Last Pacemaker Check QUESTION #4 FULL TEXT: You/Your Family Experience fever (hyperthermia) with Anesthesia Last Oral Intake Last Oral intake: Last Oral Intake NPO since 00:00 12/03/23 09:34 Meds taken in AM with sips of No 12/03/23 09:34 water? Meds patient instructed to take am of surgery PONV PONV - environmental technology professor: PONV - environmental technology professor Female HX of Motion Sickness HX of N/V After Surgery Non-Smoker Duration of Surgery greater than 60 minutes Number of Risk Factors PONV Score Height & Weight Height & Weight: Anesthesia: Height & Weight Height 4 ft 9 in 12/03/23 09:34 Weight: 83.915 kg 12/03/23 09:34 Body Mass Index (BMI) 40.0 12/03/23 09:34 Respiratory Assessment Respiratory Assessment - environmental technology professor: Respiratory Tract Infection Hx - environmental technology professor Hx Respiratory Tract Infection No 12/02/23 22:37 STOP Sleep Apnea STOP Sleep Apnea - environmental technology professor: STOP Sleep Apnea - environmental technology professor Hx Hypertension Yes 12/02/23 18:42 Hx Sleep Apnea No 12/02/23 18:42 CPAP BIPAP Do you snore loudly (louder Yes 12/02/23 18:42 than talking or can be heard Do you often feel tired/ No 12/02/23 18:42 fatigued/ sleepy during daytime? Has anyone observed you stop Yes 12/02/23 18:42 breathing during sleep? STOP Results Positive 12/02/23 18:42 QUESTION #5 FULL TEXT : Do you snore loudly (louder than talking or can be heard through closed doors)? 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 Specify any problems Hx of Preganancy in last 3 No 12/02/23 18:42 Months Nurse Filling Out Transfusion TWOLF 12/02/23 18:42 & Questions: Date: 12/02/23 12/02/23 18:42 Time: 18:45 12/02/23 18:42 Patient unable to answer at this time (ie. confused, unrespo /Reproduction History /Reproductive History - environmental technology professor: /Reproductive Hx- environmental technology professor Hx Now No 12/02/23 22:37 Gestational Age (in weeks): EDC: Hx Hx Para Hx Section SAB No 02/10/23 11:12 Active Medications Active Medications: Current Medications Generic Name Dose Route Start Last Admin Trade Name Freq PRN Reason Stop Dose Admin Acetaminophen 500 mg 12/02/23 19:20 Acetaminophen 500 Mg Tablet PO Q6H PRN Pain Score 1-10 Al Hydroxide/Mg Hydroxide 30 ml 12/02/23 19:22 Mag Hydrox/Al Hydrox/Simeth 30 Ml Udc PO Q6H PRN PRN Gastric Burning Albuterol Sulfate 2.5 mg 12/02/23 19:55 Albuterol 2.5 Mg/3 Ml Vial.Neb. INHALATION Q4H PRN Wheezing Albuterol Sulfate 2.5 mg 12/02/23 20:05 12/03/23 07:15 Albuterol 2.5 Mg/3 Ml Vial.Neb. INHALATION 2.5 mg Q6HWA.RT ABEL Administration Aripiprazole 5 mg 12/02/23 19:30 12/02/23 21:28 Aripiprazole 5 Mg Tablet PO 5 mg DAILY ABEL Administration Protocol Budesonide 0.5 mg 12/02/23 20:05 12/03/23 07:15 Budesonide Respules 0.5 Mg/2 Ml Ampul.Neb. INHALATION 0.5 mg Q12H.RT ABEL Administration Cefdinir 300 mg 12/02/23 22:00 12/02/23 21:29 Cefdinir 300 Mg Capsule PO 300 mg Q12 ABEL Administration Epinephrine HCl 0.3 mg 12/02/23 19:20 Epi Pen (Equiv) 0.3 Mg Syringe IM UD PRN anaphylaxis Ferrous Sulfate 325 mg 12/03/23 08:00 12/03/23 10:18 Ferrous Sulfate 325 Mg Tablet PO Not Given BIDCM ABEL Fluoxetine HCl 20 mg 12/02/23 19:30 12/02/23 21:28 Fluoxetine 20 Mg Capsule PO 20 mg DAILY ABEL Administration Glipizide 5 mg 12/03/23 08:00 12/03/23 10:17 Glipizide Xl 5 Mg Tablet PO Not Given DAILYCM ABEL Sodium Chloride 250 mls @ 15 mls/hr 12/02/23 18:51 IV .[id number] PRN Additional IVPB Infusion Sodium Chloride 250 mls @ 15 mls/hr 12/02/23 18:51 IV .[id number] PRN Saline Flush Sodium Chloride 1,000 mls @ 125 mls/hr 12/02/23 19:25 12/03/23 05:35 IV 125 mls/hr .Q8H ABEL Administration Ibuprofen 800 mg 12/02/23 19:57 12/02/23 22:32 Ibuprofen 400 Mg Tablet PO 800 mg TID PRN Administration Pain Score 1-10 Melatonin 3 mg 12/02/23 19:22 Melatonin 3 Mg Tablet PO QHS PRN PRN INSOMNIA Metformin HCl 500 mg 12/03/23 08:00 12/03/23 10:18 Metformin Hcl 500 Mg Tablet PO Not Given BIDCM ABEL Norethindrone Acetate 5 mg 12/02/23 20:02 Norethindrone 5 Mg Tablet PO BID PRN VAGINAL BLEEDING Ondansetron HCl 4 mg 12/02/23 19:22 Ondansetron 4 Mg/2 Ml Vial IV Q8H PRN PRN NAUSEA/VOMITING Prochlorperazine Edisylate 5 mg 12/02/23 19:22 Prochlorperazine 10 Mg/2 Ml Vial IV Q4H PRN PRN Breakthrough nausea/vomiting Sodium Chloride 10 - 40 ml 12/02/23 18:51 0.9% Saline Lock 10 Ml Syringe IV UD PRN SALINE FLUSH Tolterodine Tartrate 2 mg 12/02/23 19:30 12/02/23 21:29 Tolterodine Tartrate 2 Mg Cap.Sa PO 2 mg DAILY ABEL Administration PFSH Medical History Restless legs Anxiety Depression Sleep apnea Irregular heart beat Seizures TIA (transient ischemic attack) Hyperlipidemia Bipolar 1 disorder Hypertension Diabetes Asthma Home Medications ?Medication ?Instructions ?Recorded ?Last Taken ?Type fluoxetine 20 mg capsule 20 mg PO DAILY depression 07/18/18 12/01/23 History metformin 500 mg tablet 500 mg PO BID #20 tabs 05/25/22 12/01/23 Rx budesonide-formoterol HFA 80 2 puff inhalation BID #10.2 grams 01/04/23 12/01/23 Rx mcg-4.5 mcg/actuation aerosol inhaler (Symbicort) ibuprofen 800 mg tablet 800 mg PO TID PRN pain #20 tabs 09/07/23 12/01/23 Rx cefdinir 300 mg capsule 300 mg PO Q12H #14 caps 12/01/23 Unknown Rx epinephrine 0.3 mg/0.3 mL 0.3 mg IM UD PRN anaphylaxis 12/01/23 Unknown History injection, auto-injector ferrous sulfate 325 mg (65 mg 325 mg PO BID 12/01/23 12/01/23 History iron) tablet (FeroSul) glipizide 5 mg tablet, extended 5 mg PO DAILY 12/01/23 12/01/23 History release 24 hr norethindrone acetate 5 mg tablet 5 mg PO BID PRN vag bleeding 12/01/23 12/02/23 History vitamin with calcium 1 tab PO DAILY 12/01/23 12/01/23 History no.72-iron 27 mg-folic acid 1 mg tablet (WesTab Plus) acetaminophen 500 mg tablet 500 mg PO Q6H PRN pain 12/02/23 12/01/23 History albuterol sulfate 90 mcg/actuation 1 - 2 puff inhalation Q4H PRN 12/02/23 Unknown History aerosol inhaler (Ventolin HFA) Wheezing aripiprazole 5 mg tablet 5 mg PO DAILY 12/02/23 12/01/23 History losartan 25 mg tablet 25 mg PO DAILY 12/02/23 12/01/23 History oxybutynin chloride 5 mg 5 mg PO DAILY 12/02/23 12/01/23 History tablet,extended release 24 hr simvastatin 80 mg tablet 80 mg PO QHS 12/02/23 12/01/23 History Allergy/AdvReac Type Severity Reaction Status Date / Time Penicillins AdvReac Vomiting Verified 12/02/23 12:52 Surgical History (Updated 12/03/23 @ 10:[address] Marcos Medina MD) S/P dilatation and curettage Hx of cholecystectomy Hx of breast surgery Hx of tubal ligation Social History Smoking Status: Current some day smoker tobacco type: e-cigarettes Review of Systems (Anesthesia) ROS Narrative System reviewed and no additional complaints, except as documented.
--- NOTE | 2023-12-03 10:53 | DCINST_ITS ---
Discharge Instructions Diet Discharge Diet: No restrictions Activity May resume sexual activity in: 1 week Dressing / Incision Call your doctor if you observe: Fever of 101 or Higher, Inability to urinate, Using more than 1 pad per hour and Uncontrolled pain Follow Up Care Please Follow Up With: Cheryl Dai MD When: 1-2 weeks post OP if you need an appointment please call [phone] Test Results: Test results from this visit will be discussed in further detail at your follow- up appointment, if applicable. Discharge Plan Admission Admit Date/Time: 12/02/23 17:48 Attending Provider: Sulema Doll Primary Care Provider: Desire Gonzales NP Discharge Orders/Prescriptions Prescriptions: No Action fluoxetine 20 MG capsule 20 mg PO DAILY metformin 500 mg tablet 500 mg PO BID Qty: 20 0RF budesonide-formoterol [Symbicort] 80-4.5 mcg/actuation HFA aerosol inhaler 2 puff inhalation BID Qty: 10.2 0RF ibuprofen 800 mg tablet 800 mg PO TID PRN (Reason: pain) Qty: 20 0RF glipizide 5 mg tablet extended release 24hr 5 mg PO DAILY norethindrone acetate 5 mg tablet 5 mg PO BID PRN (Reason: vag bleeding) WesTab Plus 27 mg iron- 1 mg tablet 1 tab PO DAILY ferrous sulfate [FeroSul] 325 mg (65 mg iron) tablet 325 mg PO BID epinephrine 0.3 mg/0.3 mL auto-injector 0.3 mg IM UD PRN (Reason: anaphylaxis) cefdinir 300 mg capsule 300 mg PO Q12H Qty: 14 0RF Patient Comments: PT GOT PRESCRIBED ON 12/01/23, WAS GOING TO START ON 12/02/23, CAME BACK TO ER. HAS NOT STARTED. acetaminophen 500 mg tablet 500 mg PO Q6H PRN (Reason: pain) aripiprazole 5 mg tablet 5 mg PO DAILY simvastatin 80 mg tablet 80 mg PO QHS losartan 25 mg tablet 25 mg PO DAILY oxybutynin chloride 5 mg tablet extended release 24hr 5 mg PO DAILY albuterol sulfate [Ventolin HFA] 90 mcg/actuation HFA aerosol inhaler 1 - 2 puff inhalation Q4H PRN (Reason: Wheezing) Rx Instructions: please give spacer Referrals / Follow Up: Queden,Desire ETCH OPERATOR [employer]IC[employer] WAFERS, ETCH OPERATOR [employer]-C [Primary Care Provider] -
--- NOTE | 2023-12-03 11:09 | PCM.OPRPT ---
Report of Operation Date of Procedure: 12/03/23 Pre-Operative Diagnosis: uterine Fibroid, Acute on chronic anemia, AUB, Endometrial Polyps Post-Operative Diagnosis: Same Surgery/Procedure Performed:: Hysteroscopy, D&C, Myomectomy Description of Surgical Findings:: 3cm prolapsing fibroid. Surgeon: Cheryl Dai impregnating machine operator: Elodia Campbell Type of Anesthesia: MAC Specimen's removed: fibroids, endometrial curetting Estimated Blood Loss (mL): 10 Fluids Replaced: 400 Description of Procedure: Informed consent was obtained the patient was taken the operating room she was placed in supine position. She was given anesthesia. She was then placed in the [facility] where she was prepped and draped in the normal sterile fashion. At this time the weighted speculum was placed in the posterior fornix of vagina. Single-tooth tenaculum was used to gently grasp the anterior lip the cervix. large prolapsing fibroid noted approximately 3cm on thick stalk -At this time 0 vicryl suture used to place tie around stalk. bovie then used to cauterize and remove fibroid. once fibroid was removed the cervix was sutured to try to clamped it so Symphion could be used to resect base. it was difficult to maintain closure due to advanced dilation, however i was able to remove significant amount of fibroid base. Tubal ostia visualized. no polyps were noted but thickened endometrium noted. This time hysteroscopy was complete. Tissue will be sent to pathology for evaluation. sutures were removed. Tenaculum removed. Good hemostasis. Instrument, lap count correct x 2. estimated fluid deficiet was 500-1000cc, there was large amount of fluid on floor and collecting on towels, 2000cc in collection bag. Vaginal Sweep was negative. dr. campbell assisted in manipulation of fibroid and retraction of tissue for visualiztion Grafts/Implants Used: none Procedure Start Time: 11:38 Procedure Stop Time: 12:26 Complications none Admit VTE Documentation VTE Present on Admission: Yes VTE Mechan Device Prophylaxis: SCD's VTE Pharm Prophylaxis ordered?: No Reason prophylaxis not ordered:: Procedure Not Indicated
--- NOTE | 2023-12-03 12:43 | PCM.POST.ANE ---
Anesthesia: Postop Eval I Current Vital Signs Temperature: 97 F Pulse Rate: 87 Blood Pressure: 137/86 Respiratory Rate: 20 Pulse Ox: 97 Oxygen Delivery Method: Room Air Assessment Airway patent: Yes Spontaneous unlabored respirations: Yes Mental status: Awake and Calm nausea: No Vomiting: No Anesthesia Complication: No Fluid Hydration Crystalloid volume administer (ml): 400 Total IV fluid infused: 400 Progress Note Anesthesia document: Postop Eval 1 completed: Yes
--- NOTE | 2023-12-03 12:46 | CHAPLAIN ---
Type of Pastoral Visit ___ Initial Visit ___ Follow-up Visit ___ On-call Visit ___ General Patient Visit ___ Spiritual Assessment ___ Family Conference ___ Bereavement ___ Rapid Response ___ Code Blue ___ Other (describe below) Pastoral Care Referral From ___ Patient ___ Family ___ Nurse ___ Physician ___ Racking Machine Operator ___ Executive Compensation Analyst ___ Other (describe below) Sacrament/Intervention ___ Active listening ___ Anointing ___ Anglican ___ Bereavement ___ Communion ___ Sirisha exploration ___ ___ Life review ___ Prayer ___ Reconciliation ___ Sacrament of Sick ___ Supportive presence ___ Wedding ___ Other (describe below) Pastoral Comments patient and bed are out of the room; left a calling card
--- NOTE | 2023-12-03 13:00 | ECC_PTH ---
PATIENT: LAKEISHA TOPETE LOC: [facility] U#:[id number] AGE/SX: 53/F ROOM: MT318 RE12/02/[address]: Dr. Sulema Doll MD : 1970 BED: 1 DIS: 12/03/2023 SPEC #: [id number] RECD: 12/03/23 13:14 STATUS: CASS YUN #: [id number] FLACA: 12/03/23 13:[address]: Cheryl Dai DEPT: SURGICAL PATHOLOGY RECD BY: José Mina ENTERED: 12/03/23 13:34 SP TYPE: ECC OTHR DR: MD Dr. Darryl Velasquez DO Brittny Queden, NP-C Tissues: Endocervical Procedures: Surgery Specimen Level IV HEADER OPERATION: Hysteroscopy, myomectomy, D&C, PRE-OP DIAGNOSIS: Abnormal vaginal bleeding, fibroid, uterine TISSUE SUBMITTED: Uterine fibroid and endometrium curettings MICROSCOPIC DIAGNOSIS Uterine fibroid, myomectomy: Submucosal leiomyoma. Focal adenomyosis. Endometrial curettings: Weakly proliferative to mildly disordered proliferative endometrium. Numerous fragments of myometrium. See comment. 12/06/2023 COMMENT Endometrial curetting specimen predominantly consists of myometrial tissue. MICROSCOPIC DESCRIPTION Slides are reviewed. GROSS DESCRIPTION Received in fixative is one container labeled with the patient's name and designated Uterine fibroid and endometrial curettings. The specimen consists of a reese-white nodule measuring 4.0 x 3.5 x 2.5cm. Sections reveal reese whorled cut surfaces without areas of hemorrhage, necrosis or cystic degeneration. Also received are multiple fragments of reese soft tissue measuring in aggregate 7.0 x 4.5 x 1.5cm. Triage Technician sections are submitted in fourteen cassettes as follows: 1-3- nodular piece of tissue, 4-14- smaller fragments of tissue (smaller fragments of tissue is submitted in its entirety). NELLY/ 12/03/2023 TC:1 CPT:[id number]
--- NOTE | 2023-12-03 14:34 | POSTOPAN2_ITS ---
Anesthesia Postop Eval I Sum Postop Eval Completion status Anesthesia document: Postop Eval 1 completed: Yes Anesthesia Postop Eval I Summary Anesthesia Postop Eval I Summary: Anesthesia Postop Eval I: Assessment Summary Airway patent Yes 12/03/23 12:43 IT SECURITY CONSULTANT.SCHR Spontaneous unlabored Yes 12/03/23 12:43 IT SECURITY CONSULTANT.SCHR respirations Mental status Awake,Calm 12/03/23 12:43 IT SECURITY CONSULTANT.SCHR nausea No 12/03/23 12:43 IT SECURITY CONSULTANT.SCHR Vomiting No 12/03/23 12:43 IT SECURITY CONSULTANT.SCHR Anesthesia Postop Eval I: Fluid Summary Crystalloid volume administer 400 12/03/23 12:43 IT SECURITY CONSULTANT.SCHR (ml) Colloids volume administered ( ml) Blood Product volume administered (ml) Total IV fluid infused 400 12/03/23 12:43 IT SECURITY CONSULTANT.SCHR Anesthesia Postop Eval I: Summary Notes Anesthesia Complication No 12/03/23 12:43 IT SECURITY CONSULTANT.SCHR Anesthesia Complication Comment: Post-operative progress note Anesthesia: Postop Eval II Evaluation Mental status: Awake Pain Level: 0 nausea: No Vomiting: No
--- NOTE | 2023-12-03 14:34 | PCM.POSTANE2 ---
Anesthesia Postop Eval I Sum Postop Eval Completion status Anesthesia document: Postop Eval 1 completed: Yes Anesthesia Postop Eval I Summary Anesthesia Postop Eval I Summary: Anesthesia Postop Eval I: Assessment Summary Airway patent Yes 12/03/23 12:43 CLINICAL TRIAL ASSOCIATE.SCHR Spontaneous unlabored Yes 12/03/23 12:43 CLINICAL TRIAL ASSOCIATE.SCHR respirations Mental status Awake,Calm 12/03/23 12:43 CLINICAL TRIAL ASSOCIATE.SCHR nausea No 12/03/23 12:43 CLINICAL TRIAL ASSOCIATE.SCHR Vomiting No 12/03/23 12:43 CLINICAL TRIAL ASSOCIATE.SCHR Anesthesia Postop Eval I: Fluid Summary Crystalloid volume administer 400 12/03/23 12:43 CLINICAL TRIAL ASSOCIATE.SCHR (ml) Colloids volume administered ( ml) Blood Product volume administered (ml) Total IV fluid infused 400 12/03/23 12:43 CLINICAL TRIAL ASSOCIATE.SCHR Anesthesia Postop Eval I: Summary Notes Anesthesia Complication No 12/03/23 12:43 CLINICAL TRIAL ASSOCIATE.SCHR Anesthesia Complication Comment: Post-operative progress note Anesthesia: Postop Eval II Evaluation Mental status: Awake Pain Level: 0 nausea: No Vomiting: No
[2023-12-03] MEDS: Cefdinir 300 MG Capsule PO (15:11)
[2023-12-03] MEDS: metFORMIN HCl 500 MG Tablet PO (15:11)
[2023-12-03] MEDS: ARIPiprazole 5 MG Tablet PO (15:11)
[2023-12-03] MEDS: glipiZIDE XL 5 MG Tablet PO (15:11)
[2023-12-03] MEDS: Tolterodine Tartrate 2 MG CAP.SA PO (15:11)
[2023-12-03] MEDS: FLUoxetine 20 MG Capsule PO (15:11)
[2023-12-03] MEDS: FLU VACC 2024-25(6MOS UP)/PF 45 MCG/0.5 ML SYRINGE IM (15:17)
--- NOTE | 2023-12-03 16:09 | CASEMGMT ---
Social Work- SW met with pt top conduct SDOH. Pt reports that she is worried about becoming behind on rent and is already behind on utilities. Pt states that she works part-time, but is unable to keep up on bills d/t health constraints. Pt reports that she spoke with [employer] prior and they were unable to help. SW provided printables for [employer] card, [employer] and [facility]. SW also printed a copy of directives per pt request. Pt did not want to complete at this time; SW advised that pt can call and make an appointment to complete at [facility] if desired. Pt reports no other needs at this time. FLIP Sanabria
== END 2023-12-03 16:22 | disposition home or self-care (01) ==
LOC: ED 17:15 → MS3 12-03 05:13
PROVIDERS: Anesthesiology; Nurse Practitioner; Obstetrics & Gynecology; Admitting Provider Obstetrics & Gynecology; Emergency Provider Emergency Medicine; PCP Nurse Practitioner Family; Referring Provider Emergency Medicine; Visit Provider Obstetrics & Gynecology
PROC: 0UB98ZZ Excision of Uterus, Via Natural or Artificial Opening Endoscopic (ICD-10-PCS; CPT 58558; principal; 2023-12-03 12:45)
DX: D25.0 Submucous leiomyoma of uterus (principal); F31.9 Bipolar disorder, unspecified; E66.01 Morbid (severe) obesity due to excess calories; Z68.41 Body mass index [BMI] 40.0-44.9, adult; E11.9 Type 2 diabetes mellitus without complications; D62 Acute posthemorrhagic anemia; I10 Essential (primary) hypertension; E78.5 Hyperlipidemia, unspecified; N93.9 Abnormal uterine and vaginal bleeding, unspecified; N84.0 Polyp of corpus uteri; Z23 Encounter for immunization; Z85.42 Personal history of malignant neoplasm of other parts of uterus; Z79.899 Other long term (current) drug therapy; Z79.84 Long term (current) use of oral hypoglycemic drugs; F17.290 Nicotine dependence, other tobacco product, uncomplicated; J45.909 Unspecified asthma, uncomplicated
CPT/HCPCS: 58558; 00952; 74177; 80048; 80053; 81001; 82728; 82962; 83036; 83540; 83550; 85025; 85610; 85730; 86850; 86900; 86901; 86920; 86922; 87077; 87086; 87088; 88305; 90656; 93005; 94640; 96361; 96372; 96374; 96375; 96376; 99221; 99283; 99285; J7030; J7050; P9016; Q9967; A4216; G0378; J2405

== ENCOUNTER 2024-04-28 12:36 | Emergency (ER) | payer MEDICAID, SELFPAY ==
[2024-04-28 12:38] VITALS: BP 129/78; PULSE 81; RESP 18; TEMP 36.9; O2SAT 97; BMI 44.9
--- NOTE | 2024-04-28 13:11 | RAD_ITS ---
PROCEDURE: CHEST PA AND LATERAL REASON FOR EXAM: Cough TECHNIQUE: Frontal and lateral views of the chest. COMPARISON: 05/03/2023 FINDINGS: Lungs: Lungs clear of pneumonia and congestion. Pleura: No pleural effusions, thickening, or pneumothorax. Heart: Normal in size and configuration. Mediastinum/Joseline: Unremarkable. Great vessels: Unremarkable. Bones/soft tissues: Unremarkable. RAD/Chest PA and Lateral IMPRESSION: No active cardiopulmonary disease.. Reading Location: [place] [id number]
--- NOTE | 2024-04-28 13:15 | EX.ED.DYSGE1 ---
HPI History of Present Illness Chief Complaint: General Illness Informant: patient Narrative Narrative: 53-year-old female presenting to the emergency room with a chief complaint of cough. Patient states that 1 week ago she began to feel ill with a cough. She developed rhinorrhea and yesterday went to see urgent care where they diagnosed with a sinus infection. She states that she feels worse today. She notes now she is having chills but no fever vomiting a bit of a sore throat worsening cough and occasionally wheezing. She states she has a history of asthma and chronic bronchitis. She states she is a non-smoker. Current asthma therapy includes Combivent and a rescue inhaler. Her significant other is also ill. [facility] Medical History Restless legs Anxiety Depression Sleep apnea Irregular heart beat Seizures TIA (transient ischemic attack) Hyperlipidemia Bipolar 1 disorder Hypertension Diabetes Asthma Home Medications ?Medication ?Instructions ?Recorded ?Last Taken ?Type fluoxetine 20 mg capsule 20 mg PO DAILY depression 07/18/18 12/01/23 History metformin 500 mg tablet 500 mg PO BID #20 tabs 05/25/22 12/01/23 Rx budesonide-formoterol HFA 80 2 puff inhalation BID #10.2 grams 01/04/23 12/01/23 Rx mcg-4.5 mcg/actuation aerosol inhaler (Symbicort) ibuprofen 800 mg tablet 800 mg PO TID PRN pain #20 tabs 09/07/23 12/01/23 Rx epinephrine 0.3 mg/0.3 mL 0.3 mg IM UD PRN anaphylaxis 12/01/23 Unknown History injection, auto-injector glipizide 5 mg tablet, extended 5 mg PO DAILY 12/01/23 12/01/23 History release 24 hr norethindrone acetate 5 mg tablet 5 mg PO BID PRN vag bleeding 12/01/23 12/02/23 History acetaminophen 500 mg tablet 500 mg PO Q6H PRN pain 12/02/23 12/01/23 History albuterol sulfate 90 mcg/actuation 1 - 2 puff inhalation Q4H PRN 12/02/23 Unknown History aerosol inhaler (Ventolin HFA) Wheezing aripiprazole 5 mg tablet 5 mg PO DAILY 12/02/23 12/01/23 History losartan 25 mg tablet 25 mg PO DAILY 12/02/23 12/01/23 History oxybutynin chloride 5 mg 5 mg PO DAILY 12/02/23 12/01/23 History tablet,extended release 24 hr simvastatin 80 mg tablet 80 mg PO QHS 12/02/23 12/01/23 History doxycycline monohydrate 100 mg 100 mg PO BID #14 CAPSULES 04/28/24 Unknown Rx capsule prednisone 20 mg tablet 60 mg (3 x 20 mg) PO DAILY #15 04/28/24 Unknown Rx TABLETS Allergy/AdvReac Type Severity Reaction Status Date / Time Penicillins AdvReac Vomiting Verified 04/28/24 12:42 Surgical History S/P dilatation and curettage Hx of cholecystectomy Hx of breast surgery Hx of tubal ligation Social History Smoking Status: Current some day smoker tobacco type: e-cigarettes ROS ROS ED Constitutional Constitutional ED: Reports chills; Denies fever(s), sweats or weight loss Eyes Eyes: Denies change in vision or diplopia ENT ENT ED: Reports rhinorrhea and sore throat; Denies ear pain Cardiovascular Cardiovascular: Denies chest pain, orthopnea, palpitations or racing heartbeat Respiratory/Chest Respiratory/Chest: Reports cough, dyspnea and other Details: Wheezing ; Denies orthopnea Gastrointestinal Gastrointestinal: Reports other Details: Posttussive emesis ; Denies abdominal pain, diarrhea or nausea Genitourinary Genitourinary ED: Denies dysuria, hematuria or urinary frequency Musculoskeletal Musculoskeletal: Denies arthralgias or myalgias Integumentary Denies abscess or rash Neurologic Neurologic: Denies headache(s) or weakness Psychiatric Psychiatric: Denies anxiety, depression, suicidal ideation or suicidal thoughts Endocrine Endocrinology: Denies polydipsia, polyphagia or polyuria Allergic/Immunologic Allergic/Immunologic ED: Denies mouth swelling, tongue swelling or urticaria EXAM Physical Exam Const Vital Signs: 04/28/24 12:38 04/28/24 12:41 04/28/24 14:06 Temperature 98.4 F Temperature Source Oral Pulse Rate 81 89 Respiratory Rate 18 18 Respiratory Effort Normal Non-Labored Respiratory Pattern Normal Blood Pressure 129/78 H Blood Pressure Mean 95 Pulse Ox 97 97 Oxygen Delivery Method Room Air Positive well nourished, well developed and obese General Appearance ED: well developed and NAD Nutritional Appearance: obese HEENT Reports normocephalic, head/scalp atraumatic and moist mucous membranes HEENT Narrative: Mild turbinate edema no postnasal drip no oropharyngeal erythema Eyes PERRL and EOMs intact bilaterally Neck no lymphadenopathy, supple and no JVD Resp normal respiratory effort Resp Narrative: Faint expiratory wheeze Cardio regular rate, regular rhythm and no murmurs GI normal to inspection, nondistended, normoactive bowel sounds and non-tender Palpation: soft Back/Spine no CVA tenderness and normal ROM Extremity normal to inspection General Extremety ED: Negative for edema General Extremity: Negative for edema Neuro oriented x3 and CN's II-XII intact bilaterally Sensorium / Orientation: alert Motor Exam: strength 5/5 throughout Psych mental status grossly normal Mood & Affect: Negative for depressed or tearful Skin no rashes or lesions noted and no wounds MDM MDM MDM Narrative Medical decision making narrative: Differential diagnosis includes asthma exacerbation bronchitis bronchospasm pneumonia viral syndrome My independent interpretation of the chest x-ray is no acute process. Patient has been sick now on day 8. I do not think viral testing will be effective. She has not had fever. I am going to write for some prednisone as I do hear some faint expiratory wheeze with her history of asthma. This is most likely viral however is now day 8 and she seems to be getting worse I do not think it is unreasonable to trial a course of doxycycline. Patient is comfortable this plan. History & Record Review Discussion w/independent historian: Patient Radiography Diagnostic Testing: Clinical Impression(s) from Imaging Studies Chest X-Ray 04/28/24 13:11 IMPRESSION: No active cardiopulmonary disease.. Reading Location: [place] [id number] Discharge Plan Triage Chief Complaint: General Illness ED Provider: Gabe Barreto Dx/Rx/DC Orders Clinical Impression: Bronchitis, Asthma Instructions: ED Bronchitis with Wheezing (Adult) Prescriptions: New prednisone 20 mg tablet 60 mg PO DAILY Qty: 15 0RF doxycycline monohydrate 100 mg capsule 100 mg PO BID Qty: 14 0RF No Action fluoxetine 20 MG capsule 20 mg PO DAILY metformin 500 mg tablet 500 mg PO BID Qty: 20 0RF budesonide-formoterol [Symbicort] 80-4.5 mcg/actuation HFA aerosol inhaler 2 puff inhalation BID Qty: 10.2 0RF ibuprofen 800 mg tablet 800 mg PO TID PRN (Reason: pain) Qty: 20 0RF glipizide 5 mg tablet extended release 24hr 5 mg PO DAILY norethindrone acetate 5 mg tablet 5 mg PO BID PRN (Reason: vag bleeding) epinephrine 0.3 mg/0.3 mL auto-injector 0.3 mg IM UD PRN (Reason: anaphylaxis) acetaminophen 500 mg tablet 500 mg PO Q6H PRN (Reason: pain) aripiprazole 5 mg tablet 5 mg PO DAILY simvastatin 80 mg tablet 80 mg PO QHS losartan 25 mg tablet 25 mg PO DAILY oxybutynin chloride 5 mg tablet extended release 24hr 5 mg PO DAILY albuterol sulfate [Ventolin HFA] 90 mcg/actuation HFA aerosol inhaler 1 - 2 puff inhalation Q4H PRN (Reason: Wheezing) Rx Instructions: please give spacer Primary Care Provider: Desire Gonzales NP Referrals: Desire Gonzales NP, [employer] [Primary Care Provider] - As Needed Print Language: Faroese Disposition Disposition: Home, Self Care Discharge Date/Time: 04/28/24 14:06
[2024-04-28 14:06] VITALS: PULSE 89; RESP 18; O2SAT 97
== END 2024-04-28 14:06 | disposition home or self-care (01) ==
PROVIDERS: Emergency Provider Emergency Medicine; PCP Nurse Practitioner Family; Visit Provider Emergency Medicine
DX: J40 Bronchitis, not specified as acute or chronic (principal); J44.9 Chronic obstructive pulmonary disease, unspecified; E11.9 Type 2 diabetes mellitus without complications; I10 Essential (primary) hypertension; E78.5 Hyperlipidemia, unspecified; E66.9 Obesity, unspecified
CPT/HCPCS: 71046; 99282

== ENCOUNTER 2024-05-12 01:54 | Emergency (ER) | payer MEDICAID, SELFPAY ==
[2024-05-12 01:55] VITALS: BP 183/96; PULSE 100; RESP 18; TEMP 36.6; O2SAT 98; BMI 45.3
--- NOTE | 2024-05-12 02:31 | CT_ITS ---
PROCEDURE: ABDOMEN/PELVIS W IV CONT ONLY REASON FOR EXAM: RLQ PAIN TECHNIQUE: Abdomen and pelvis CT with intravenous contrast. Coronal and sagittal reformatted images IV CONTRAST: 92 cc Isovue 370 COMPARISON: 12/01/2023 FINDINGS: Lung bases: Clear Liver: Unremarkable. Gallbladder: Absent. Spleen: Unremarkable. Pancreas: Unremarkable. Adrenals: Unremarkable. Kidneys: Previously noted stone in the right renal pelvis is now at the proximal ureter measuring around 6 mm in presenting axis axial 59, coronal 65 and sagittal 73. Based on size may not spontaneously pass the UVJ. There is associated mild right hydronephrosis. Symmetric appearing nephrograms without perinephric stranding or fluid collection. Mild urothelial thickening of the lower right renal pelvis and proximal ureter may be reactive, inflammatory or infectious.. Bladder: Unremarkable. Reproductive Organs: Mildly enlarged lobular possibly fibroid uterus again noted. There is now a 3.2 cm cystic focus right ovary. Left ovary appears within limits. No free fluid.. Bowel: No bowel dilation, bowel wall thickening or free air. Appendix: Status post apparent appendectomy. Lymph nodes: No suspicious lymph node enlargement. Vasculature: Major vascular structures are unremarkable. Peritoneum / Retroperitoneum: No ascites. No free air. Bones: Bilateral nonacute L5 spondylolysis again noted. Ankylosing spondylitis visualized mid to lower thoracic spine and L1-2 again noted.. T12-L1 spondylosis/discogenic change again noted CT/Abdomen/Pelvis W IV Cont ONLY IMPRESSION: Previously noted stone in the right renal pelvis is now at the proximal ureter measuring around 6 mm in presenting axis. Based on size may not spontaneously pass the UVJ. There is associated mild right hydrone phrosis. Symmetric appearing nephrograms without perinephric stranding or fluid collection. Mild urothelial thickening of the lower right renal pelvis and proximal ureter may be reactive, inflammatory or infectious. There is now a 3.2 cm cystic focus right ovary. May follow-up with pelvic ultr asound in 1-2 menstrual cycles. One or more dose reduction techniques were used (e.g., Automated exposure contr ol, adjustment of the mA and/or kV according to patient size, use of iterative reconstruction technique). Reading Location: [id number]
[2024-05-12] MEDS: Ondansetron 4 MG/2 ML Vial IV (02:40)
[2024-05-12] MEDS: 0.9% Normal Saline (1000mL) 1,000 ML 999 ML IV (02:40)
[2024-05-12] MEDS: Morphine 4 MG/ML Syringe IV (02:40)
[2024-05-12 02:42] LABS: Absolute Lymphocyte Count 3.56 X10^3/uL (0.83-4.51); Absolute Neutrophil Count 9.9 X10^3/uL (2.0-7.7); Basophil# 0.05 X10^3/uL; Basophil% 0.3 % (0-1); Eosinophil# 0.27 X10^3/uL; Eosinophils% 1.8 % (0-5); Hemoglobin 9.7 g/dL (12.0-15.0); Lymphocyte # 3.56 X10^3/ul (0.83-4.51); Lymphocyte % 23.6 % (19-41); Mean Corp Hgb Conc 30.3 g/dL (32-36); Mean Corpuscular Hgb 23.8 pg (27.0-32.0); Mean Corpuscular Volume 78.6 fL (81-99); Mean Platelet Vol. 10.1 fl (6.2-12.0); Monocyte# 1.19 X10^3/uL; Monocyte% 7.9 % (0-10); NRBC Flagged by Analyzer 0 % (0-5); Neutrophil # 9.88 X10^3/uL (2.7-7.7); Neutrophil % 65.5 % (47-70); Platelet Count 303 K/mm3 (150-450); RBC Distribution Width SD 47.3 fl (35.1-43.9); Red Blood Count 4.07 M/mm3 (4.2-5.4); White Blood Count 15.1 K/mm3 (4.4-11.0)
[2024-05-12 02:48] LABS: Color, Urine Straw (Yellow); Glucose, Dipstick Normal (Normal); Ketone-Dipstick Negative (Negative); Leukocyte Esterase-Dipstick 500 /ul (Negative); Nitrite-Dipstick Positive (Negative); Occult Blood-Urine 25 /ul (Negative); Protein-Dipstick 15 mg/dl (Negative); Specific Gravity, Urine 1.015 (1.002-1.030); Urine Bilirubin Dipstick Negative (Negative); Urine Clarity Clear (Clear); Urine Urobilinogen Normal (Normal); Urine pH 6.5 (5.0 - 8.0)
--- NOTE | 2024-05-12 02:50 | RAD_ITS ---
PROCEDURE: CHEST 1 VIEW (PORTABLE) N/A REASON FOR EXAM: COUGH TECHNIQUE: Frontal view of the chest. COMPARISON: 04/28/2024 FINDINGS: The lungs are clear. The cardiac and mediastinal contours are within limits. The visualized osseous structures appear within limits. RAD/Chest 1 View (Portable) IMPRESSION: No evidence of acute disease. Reading Location: [id number]
[2024-05-12 02:56] LABS: Bacteria 3+ /hpf (None Seen); Internal QC Validated? YES +Cl - CLEAR BKGD; Mucous, Urine 2+ /hpf (<or=2+); Pregnancy, Urine Negative Negative; Red Blood Cells-Urine 0 SEEN /hpf (0-5); Squamous Epithelial Cells - UA 5-10 SEEN /hpf (5-10); White Blood Cells >100 SEEN /hpf (0-5)
[2024-05-12 03:43] LABS: Lipase 31 U/L (13-75)
[2024-05-12 03:51] LABS: AST(SGOT) 14 U/L (<=31); Alanine Aminotransfer ALT/SGPT 12 U/L (<=34); Albumin, Serum 3.6 g/dL (3.5-5.0); Alkaline Phosphatase 77 U/L (35-104); Anion Gap 15 (5-15); BUN 11 mg/dL (4-19); BUN/Creat Ratio 12.8 RATIO (10-20); Bilirubin, Direct < 0.08 mg/dL (0.00-0.30); Calcium,Total 8.7 mg/dL (7.6-11.0); Carbon Dioxide 20.8 mmol/L (21.0-32.0); Chloride 102 mmol/L (98-108); Creatinine, Serum 0.82 mg/dL (0.70-1.20); EST Glomerular Filtration Rate 86 (>60); Estimated Creatinine Clearance 83.72 ml/min (50-250); Globulin 3.2 g/dL (2.2-4.2); Glucose 191 mg/dL (70-99); Potassium 3.2 mmol/L (3.3-5.1); Protein, Total 6.8 g/dL (5.9-8.4); Sodium Level 137 mmol/L (133-145); Total Bilirubin < 0.15 mg/dL (0.00-1.30)
[2024-05-12 03:55] VITALS: BP 160/71; PULSE 75; RESP 18
--- NOTE | 2024-05-12 04:09 | EX.ED.DYSGE1 ---
HPI History of Present Illness Chief Complaint: Nausea/Vomiting/Diarrhea Informant: patient Narrative Narrative: Patient is a 53-year-old female with past medical history of hypertension hyperlipidemia [id number] diabetes and bipolar disorder. She reports that she was recently sick with congestion and cough over the past 2 weeks which seems to be improving. However today she had generalized abdominal discomfort slightly greater on the right with bouts of nausea vomiting and diarrhea. She denies any known sick contact. She reports that she has a history of a kidney stone on the right and has concerned that the stone may be worsening. She reports she has not been able to sleep secondary to the pain and recurrent symptoms and therefore comes in for evaluation [facility] Medical History Restless legs Anxiety Depression Sleep apnea Irregular heart beat Seizures TIA (transient ischemic attack) Hyperlipidemia Bipolar 1 disorder Hypertension Diabetes Asthma Home Medications ?Medication ?Instructions ?Recorded ?Last Taken ?Type fluoxetine 20 mg capsule 20 mg PO DAILY depression 07/18/18 12/01/23 History metformin 500 mg tablet 500 mg PO BID #20 tabs 05/25/22 12/01/23 Rx budesonide-formoterol HFA 80 2 puff inhalation BID #10.2 grams 01/04/23 12/01/23 Rx mcg-4.5 mcg/actuation aerosol inhaler (Symbicort) ibuprofen 800 mg tablet 800 mg PO TID PRN pain #20 tabs 09/07/23 12/01/23 Rx epinephrine 0.3 mg/0.3 mL 0.3 mg IM UD PRN anaphylaxis 12/01/23 Unknown History injection, auto-injector glipizide 5 mg tablet, extended 5 mg PO DAILY 12/01/23 12/01/23 History release 24 hr norethindrone acetate 5 mg tablet 5 mg PO BID PRN vag bleeding 12/01/23 12/02/23 History acetaminophen 500 mg tablet 500 mg PO Q6H PRN pain 12/02/23 12/01/23 History albuterol sulfate 90 mcg/actuation 1 - 2 puff inhalation Q4H PRN 12/02/23 Unknown History aerosol inhaler (Ventolin HFA) Wheezing aripiprazole 5 mg tablet 5 mg PO DAILY 12/02/23 12/01/23 History losartan 25 mg tablet 25 mg PO DAILY 12/02/23 12/01/23 History oxybutynin chloride 5 mg 5 mg PO DAILY 12/02/23 12/01/23 History tablet,extended release 24 hr simvastatin 80 mg tablet 80 mg PO QHS 12/02/23 12/01/23 History cephalexin 500 mg capsule 500 mg PO TID 7 days #21 caps 05/12/24 Unknown Rx ketorolac 10 mg tablet 10 mg PO 4X/DAY PRN pain 5 days 05/12/24 Unknown Rx #20 tabs ondansetron 4 mg disintegrating 4 mg PO TID PRN nausea and 05/12/24 Unknown Rx tablet vomiting #21 tabs oxycodone-acetaminophen 5 mg-325 1 tab PO Q6H PRN pain 3 days #12 05/12/24 Unknown Rx mg tablet (Percocet) tabs tamsulosin 0.4 mg capsule (Flomax) 0.4 mg PO DAILY 14 days #14 caps 05/12/24 Unknown Rx Allergy/AdvReac Type Severity Reaction Status Date / Time Penicillins AdvReac Vomiting Verified 05/12/24 01:55 Surgical History S/P dilatation and curettage Hx of cholecystectomy Hx of breast surgery Hx of tubal ligation Social History Smoking Status: Current some day smoker tobacco type: e-cigarettes ROS ROS ED Constitutional Constitutional ED: Denies chills or fever(s) Eyes Eyes: Denies blurry vision or change in vision ENT ENT ED: Denies sore throat Cardiovascular Cardiovascular: Denies chest pain Respiratory/Chest Respiratory/Chest: Reports cough; Denies dyspnea Gastrointestinal Gastrointestinal: Reports abdominal pain, diarrhea, nausea and vomiting Genitourinary Genitourinary ED: Denies dysuria or hematuria Musculoskeletal Musculoskeletal: Reports back pain Integumentary Denies rash Neurologic Neurologic: Denies headache(s) Hematologic/Lymphatic Hematologic/Lymphatic: Denies easy bleeding or easy bruising EXAM Physical Exam Const Vital Signs: 05/12/24 01:55 05/12/24 03:55 Temperature 97.8 F Temperature Source Oral Pulse Rate 100 75 Respiratory Rate 18 18 Blood Pressure 183/96 H 160/71 H Blood Pressure Mean 125 100 Pulse Ox 98 Oxygen Delivery Method Room Air Positive well nourished, well developed and obese General Appearance ED: well developed; Negative for pallor Nutritional Appearance: obese HEENT Reports dry mucous membranes HEENT Narrative: No tongue or lip swelling no oral lesions no airway edema or compromise No secondary findings in the posterior pharynx to suggest infection Mouth ED: Yes dry mucous membranes Mouth: dry mucous membranes Eyes PERRL and EOMs intact bilaterally General Eye ED: Negative for scleral icterus Neck supple Neck Narrative: No nuchal rigidity or meningeal sign Resp normal respiratory effort Resp Narrative: Breath sounds are slight diminished throughout with faint rhonchi noted in bilateral bases but otherwise no signs of respiratory distress Cardio regular rate and regular rhythm Rate: other Other Details: Heart is regular rate and rhythm Radial and carotid pulses are equal and symmetric GI non-distended and no masses GI Narrative: Abdomen is soft and nondistended with hyperactive bowel sounds. There is pain with palpation in the midepigastric as well as right upper and lower abdomen without voluntary guarding or rigidity. No pulsatile mass or fluid wave Auscultation: hyperactive bowel sounds Palpation: soft Back/Spine Back/Spine Narrative: Right CVA pain noted Extremity normal to inspection Neuro oriented x3, CN's II-XII intact bilaterally and no sensory deficits noted Sensorium / Orientation: alert Motor Exam: strength 5/5 throughout Psych Psych Narrative: Patient has a flat affect Skin no rashes or lesions noted and no wounds Skin Narrative: Skin turgor slightly increased General Skin Exam: Negative for jaundice or pallor MDM MDM MDM Narrative Medical decision making narrative: Patient arrived to the ER hypertensive but has a past medical history of this and otherwise vitals are stable. She reported roughly 2 weeks of mild congestion and cough which she states were improving but then developed bouts of nausea vomiting diarrhea as well as right sided pain today. Patient most likely has a viral URI but in order to ensure this is not a pneumonia chest x-ray will be obtained. With the history of kidney stone and right sided abdominal pain there is concern for UTI versus pyelonephritis versus hydroureteronephrosis versus acute kidney injury versus acute appendicitis and secondary to his basic labs with a urine sample as well as a CT scan with IV contrast will be ordered. Patient's x-ray revealed no acute finding. Lab work showed leukocytosis at 15.1 with left shift but otherwise no signs of NIKA or clinically significant electrolyte abnormality. Urine sample showed changes concerning/consistent with infection and therefore he was sent for culture and she was given Rocephin. CT scan showed right sided kidney stone but otherwise no signs of intestinal abscess perforation obstruction or appendicitis. At this time the patient does not have urosepsis she does not have NIKA and her pain is controlled and therefore there is no need for admission. Patient can be given symptomatic medication and can follow-up with urology as an outpatient to discuss further treatment options for her large kidney stone History & Record Review Discussion w/independent historian: Patient Lab Data Attestation: I reviewed the patient's lab results. Labs: Laboratory Results - last 24 hr 05/12/24 05/12/24 02:00 02:38 WBC 15.1 H RBC 4.07 L Hgb 9.7 L Hct 32.0 L MCV 78.6 L MCH 23.8 L MCHC 30.3 L RDW Std Deviation 47.3 H RDW Coeff of Yohannes 17.0 H Plt Count 303 MPV 10.1 Immature Gran % (Auto) 0.900 Neut % (Auto) 65.5 Lymph % (Auto) 23.6 Tillman % (Auto) 7.9 Eos % (Auto) 1.8 Baso % (Auto) 0.3 Absolute Neuts (auto) 9.9 H Absolute Lymphs (auto) 3.56 Nucleated RBC % 0 Sodium 137 Potassium 3.2 L Chloride 102 Carbon Dioxide 20.8 L Anion Gap 15 BUN 11 Creatinine 0.82 Estim Creat Clear Calc 83.72 Est GFR (MDRD) Non-Af 86 BUN/Creatinine Ratio 12.8 Glucose 191 H Calcium 8.7 Total Bilirubin < 0.15 Direct Bilirubin < 0.08 AST 14 ALT 12 Alkaline Phosphatase 77 Total Protein 6.8 Albumin 3.6 Globulin 3.2 Lipase 31 Urine Color Straw Urine Clarity Clear Urine pH 6.5 Ur Specific [place] 1.015 Urine Protein 15 H Urine Glucose (UA) Normal Urine Ketones Negative Urine Occult Blood 25 H Urine Nitrite Positive H Urine Bilirubin Negative Urine Urobilinogen Normal Ur Leukocyte Esterase 500 H Urine RBC 0 SEEN Urine WBC >100 SEEN Ur Squamous Epith Cells 5-10 SEEN Urine Bacteria 3+ Urine Mucus 2+ Urine Test Negative Radiography Diagnostic Testing: Clinical Impression(s) from Imaging Studies Abdomen/Pelvis CT 05/12/24 02:31 IMPRESSION: Previously noted stone in the right renal pelvis is now at the proximal ureter measuring around 6 mm in presenting axis. Based on size may not spontaneously pass the UVJ. There is associated mild right hydronephrosis. Symmetric appearing nephrograms without perinephric stranding or fluid collection. Mild urothelial thickening of the lower right renal pelvis and proximal ureter may be reactive, inflammatory or infectious. There is now a 3.2 cm cystic focus right ovary. May follow-up with pelvic ultrasound in 1-2 menstrual cycles. One or more dose reduction techniques were used (e.g., Automated exposure control, adjustment of the mA and/or kV according to patient size, use of iterative reconstruction technique). Reading Location: [facility] Chest X-Ray 05/12/24 02:50 IMPRESSION: No evidence of acute disease. Reading Location: [facility] Chest x-ray as interpreted by the emergency medicine physician reveals no acute infiltrate pneumothorax or pleural effusion Discharge Plan Triage Chief Complaint: Nausea/Vomiting/Diarrhea ED Provider: Micky Keith Dx/Rx/DC Orders Clinical Impression: Kidney stone on right side, UTI (urinary tract infection), Nausea vomiting and diarrhea, Bipolar 1 disorder, Anemia, Hypertension Instructions: Urinary Tract Infections in Women, ED Gastroenteritis, Viral (Adult), ED Kidney Stone with Pain Prescriptions: New ondansetron 4 mg tablet,disintegrating 4 mg PO TID PRN (Reason: nausea and vomiting) Qty: 21 0RF tamsulosin [Flomax] 0.4 mg capsule 0.4 mg PO DAILY 14 Days Qty: 14 0RF cephalexin 500 mg capsule 500 mg PO TID 7 Days Qty: 21 0RF ketorolac 10 mg tablet 10 mg PO 4X/DAY PRN (Reason: pain) 5 Days Qty: 20 0RF oxycodone-acetaminophen [Percocet] 5-325 mg tablet 1 tab PO Q6H PRN (Reason: pain) 3 Days Qty: 12 0RF No Action fluoxetine 20 MG capsule 20 mg PO DAILY metformin 500 mg tablet 500 mg PO BID Qty: 20 0RF budesonide-formoterol [Symbicort] 80-4.5 mcg/actuation HFA aerosol inhaler 2 puff inhalation BID Qty: 10.2 0RF ibuprofen 800 mg tablet 800 mg PO TID PRN (Reason: pain) Qty: 20 0RF glipizide 5 mg tablet extended release 24hr 5 mg PO DAILY norethindrone acetate 5 mg tablet 5 mg PO BID PRN (Reason: vag bleeding) epinephrine 0.3 mg/0.3 mL auto-injector 0.3 mg IM UD PRN (Reason: anaphylaxis) acetaminophen 500 mg tablet 500 mg PO Q6H PRN (Reason: pain) aripiprazole 5 mg tablet 5 mg PO DAILY simvastatin 80 mg tablet 80 mg PO QHS losartan 25 mg tablet 25 mg PO DAILY oxybutynin chloride 5 mg tablet extended release 24hr 5 mg PO DAILY albuterol sulfate [Ventolin HFA] 90 mcg/actuation HFA aerosol inhaler 1 - 2 puff inhalation Q4H PRN (Reason: Wheezing) Rx Instructions: please give spacer Primary Care Provider: Desire Gonzales NP Referrals: Linwood Vega MD [Med Staff - Active Staff] - (Kidney stone) Desire Gonzales NP, [employer] [Primary Care Provider] - Activity Restrictions/Additional Instructions: Please follow-up with urology to discuss further treatment options such as lithotripsy or stent placement for the large 6 mm kidney stone found on today's CT scan. Take the prescribed medication as directed to resolve your UTI and control your pain. Return to the ER if you develop a fever over 100.4 the pain medications are not controlling your symptoms or you have any further concerns Print Language: Nepali Disposition Disposition: Home, Self Care
[2024-05-12] MEDS: Ketorolac 30 MG/ML Syringe IV (04:16)
[2024-05-12] MEDS: Ceftriaxone 1 GM/50 ML BAG IV (04:20)
[2024-05-12 04:58] VITALS: BP 158/78; PULSE 77; RESP 18; TEMP 36.7; O2SAT 97
== END 2024-05-12 04:59 | disposition home or self-care (01) ==
PROVIDERS: Emergency Provider Emergency Medicine; PCP Nurse Practitioner Family; Visit Provider Emergency Medicine
DX: N13.6 Pyonephrosis (principal); F31.9 Bipolar disorder, unspecified; E11.9 Type 2 diabetes mellitus without complications; E78.5 Hyperlipidemia, unspecified; R11.2 Nausea with vomiting, unspecified; D64.9 Anemia, unspecified; R19.7 Diarrhea, unspecified; I10 Essential (primary) hypertension; F17.290 Nicotine dependence, other tobacco product, uncomplicated; J45.909 Unspecified asthma, uncomplicated; E66.9 Obesity, unspecified
CPT/HCPCS: 71045; 74177; 80048; 80076; 81001; 81025; 83690; 85025; 87077; 87086; 87088; 87186; 96365; 96375; 99285; Q9967; A4216; J2405

== ENCOUNTER 2024-05-30 16:01 | Observation (INO) | payer MEDICAID, SELFPAY ==
[2024-05-30 16:02] VITALS: BP 121/70; PULSE 73; RESP 16; TEMP 36.9; O2SAT 98; BMI 43.8
--- NOTE | 2024-05-30 16:13 | CT_ITS ---
PROCEDURE: ABDOMEN/PELVIS WITHOUT CONT 05/30/2024 REASON FOR EXAM: 53-year-old female, RIGHT FLANK PAIN TECHNIQUE: Abdomen and pelvis CT without intravenous contrast. Noncontrast technique limits evaluation of the abdominal and pelvic viscera. Coronal and Sagittal reconstruction series were provided. One or more dose reduction techniques were used (e.g., Automated exposure control, adjustment of the mA and/or kV according to patient size, use of iterative reconstruction technique). PATIENT PREPARATION: Per protocol ORAL CONTRAST TYPE: None. COMPARISON: CT abdomen pelvis 05/12/2024. FINDINGS: Lung bases: The lung bases are clear. The heart is normal in size. Liver: Mild hepatomegaly with diffuse hepatic steatosis. No biliary ductal dilation. Gallbladder: Prior cholecystectomy. Spleen: Normal size. Pancreas: The unopacified pancreas is unremarkable. Adrenals: Unremarkable. Kidneys: Obstructing right ureteral stone at the UVJ measuring approximately 8 mm, with moderate hydroureteronephrosis. Unremarkable left kidney. Bladder: Decompressed. Reproductive Organs: Mildly enlarged, lobular uterus. Stable right ovarian cyst. Bowel: The bowel loops are normal in caliber. No ascites or pneumoperitoneum. Prior appendectomy. Lymph nodes: Visualization is limited without the use of IV contrast. No lymphadenopathy. Vasculature: The abdominal aorta and IVC contours are normal. Noncontrast technique limits evaluation. Bones: Thoracolumbar spondylosis with unchanged L5 spondylolysis. 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 CT/Abdomen/Pelvis without Cont IMPRESSION: 1. Obstructing right ureteral stone at the UVJ measuring 8 mm with moderate hyd roureteronephrosis. 2. Mild hepatomegaly with diffuse hepatic steatosis. 3. Stable cystic focus within the right ovary. Follow-up pelvic ultrasound in 6 weeks is recommended for further evaluation. Reading Location: [id number]
--- NOTE | 2024-05-30 16:15 | EX.ED.DYSGE1 ---
HPI History of Present Illness Chief Complaint: Flank Pain Informant: patient Onset/Context/Timing Onset: Yesterday Context: Sudden Onset Timing: Continuous Quality: Stabbing Location: Right flank and right abdomen Worsened by: Nothing Relieved by: Nothing Narrative Narrative: Patient presents with right-sided flank and abdominal pain that became worse yesterday. Patient states she has had similar symptoms in the past with prior kidney stones. Patient describes her pain as stabbing. Patient states it is constant. Patient states it is over the right flank and right abdomen. Patient states nothing makes it better nothing makes it worse. Patient admits to some nausea and vomiting. Patient states she is vomiting up some dark contents. Patient also admits to a cough. Patient states she is coughing up some dark contents. Patient admits to some dysuria but denies any hematuria or frequency. Patient states her pain does radiate into her back. Patient admits to some subjective chills but denies any fevers. [facility] Medical History Restless legs Anxiety Depression Sleep apnea Irregular heart beat Seizures TIA (transient ischemic attack) Hyperlipidemia Bipolar 1 disorder Hypertension Diabetes Asthma Home Medications ?Medication ?Instructions ?Recorded ?Last Taken ?Type fluoxetine 20 mg capsule 20 mg PO DAILY depression 07/18/18 12/01/23 History metformin 500 mg tablet 500 mg PO BID #20 tabs 05/25/22 12/01/23 Rx budesonide-formoterol HFA 80 2 puff inhalation BID #10.2 grams 01/04/23 12/01/23 Rx mcg-4.5 mcg/actuation aerosol inhaler (Symbicort) ibuprofen 800 mg tablet 800 mg PO TID PRN pain #20 tabs 09/07/23 12/01/23 Rx epinephrine 0.3 mg/0.3 mL 0.3 mg IM UD PRN anaphylaxis 12/01/23 Unknown History injection, auto-injector glipizide 5 mg tablet, extended 5 mg PO DAILY 12/01/23 12/01/23 History release 24 hr norethindrone acetate 5 mg tablet 5 mg PO BID PRN vag bleeding 12/01/23 12/02/23 History acetaminophen 500 mg tablet 500 mg PO Q6H PRN pain 12/02/23 12/01/23 History albuterol sulfate 90 mcg/actuation 1 - 2 puff inhalation Q4H PRN 12/02/23 Unknown History aerosol inhaler (Ventolin HFA) Wheezing aripiprazole 5 mg tablet 5 mg PO DAILY 12/02/23 12/01/23 History losartan 25 mg tablet 25 mg PO DAILY 12/02/23 12/01/23 History oxybutynin chloride 5 mg 5 mg PO DAILY 12/02/23 12/01/23 History tablet,extended release 24 hr simvastatin 80 mg tablet 80 mg PO QHS 12/02/23 12/01/23 History cephalexin 500 mg capsule 500 mg PO TID 7 days #21 caps 05/12/24 Unknown Rx ketorolac 10 mg tablet 10 mg PO 4X/DAY PRN pain 5 days 05/12/24 Unknown Rx #20 tabs ondansetron 4 mg disintegrating 4 mg PO TID PRN nausea and 05/12/24 Unknown Rx tablet vomiting #21 tabs oxycodone-acetaminophen 5 mg-325 1 tab PO Q6H PRN pain 3 days #12 05/12/24 Unknown Rx mg tablet (Percocet) tabs tamsulosin 0.4 mg capsule (Flomax) 0.4 mg PO DAILY 14 days #14 caps 05/12/24 Unknown Rx Allergy/AdvReac Type Severity Reaction Status Date / Time Penicillins AdvReac Vomiting Verified 05/30/24 16:02 Surgical History S/P dilatation and curettage Hx of cholecystectomy Hx of breast surgery Hx of tubal ligation Social History Smoking Status: Current some day smoker tobacco type: e-cigarettes ROS ROS ED Constitutional Constitutional ED: Reports chills and subjective; Denies fever(s) Eyes Eyes: Denies blurry vision or change in vision ENT ENT ED: Denies rhinorrhea or sore throat Cardiovascular Cardiovascular: Denies chest pain or palpitations Respiratory/Chest Respiratory/Chest: Reports cough; Denies dyspnea Gastrointestinal Gastrointestinal: Reports abdominal pain, nausea and vomiting; Denies diarrhea Genitourinary Genitourinary ED: Reports dysuria; Denies hematuria Musculoskeletal Musculoskeletal: Reports back pain; Denies neck pain Integumentary Denies abscess or rash Neurologic Neurologic: Denies headache(s) or weakness Allergic/Immunologic Allergic/Immunologic ED: Denies mouth swelling or urticaria EXAM Physical Exam Const Vital Signs: 05/30/24 16:02 05/30/24 18:01 Temperature 98.5 F 97.9 F Temperature Source Oral Oral Pulse Rate 73 82 Respiratory Rate 16 16 Blood Pressure 121/70 H 133/67 H Blood Pressure Mean 87 89 Pulse Ox 98 96 Oxygen Delivery Method Room Air Room Air Positive well nourished and well developed General Appearance ED: well developed and NAD HEENT Reports moist mucous membranes Neck supple and no JVD Resp normal respiratory effort and clear to auscultation bilaterally Cardio regular rate and regular rhythm GI non-distended Palpation: soft and tender RLQ and RUQ; Negative for guarding or rebound tenderness present Back/Spine General Back: CVA tenderness right Neuro oriented x3, CN's II-XII intact bilaterally and no sensory deficits noted Sensorium / Orientation: alert Motor Exam: strength 5/5 throughout Psych mental status grossly normal MDM MDM MDM Narrative Medical decision making narrative: Differential diagnosis includes cholecystitis, cholelithiasis, ureteral lithiasis, pyelonephritis, pancreatitis, colitis, bowel obstruction, perforation, and urinary tract infection. CT scan of the abdomen and pelvis will be obtained to assess for ureteral calculus, pyelonephritis, bowel obstruction, perforation. CBC will be obtained to assess for leukocytosis and anemia. Comprehensive metabolic profile will be obtained to assess for hepatic function, renal function, and electrolyte abnormality. Lipase will be obtained to assess for pancreatitis. Urinalysis will be obtained to assess for urinary tract infection and hematuria. Lab Data Attestation: I reviewed the patient's lab results. Lab results narrative: CBC was reviewed. There is a leukocytosis of 15.9. Hemoglobin was 11.0 hematocrit was 35.4. Platelets were normal. Comprehensive metabolic profile was reviewed. Potassium was slightly low at 3.3. Creatinine was normal at 1.01. BUN was normal at 12. Lipase was reviewed and was normal at 20. Urinalysis was reviewed. Leukocyte esterase was 500 with greater than 100 white blood cells and 3+ bacteria. Labs: Laboratory Results - last 24 hr 05/30/24 05/30/24 16:03 16:29 WBC 15.9 H RBC 4.65 Hgb 11.0 L Hct 35.4 L MCV 76.1 L MCH 23.7 L MCHC 31.1 L RDW Std Deviation 44.7 H RDW Coeff of Yohannes 16.5 H Plt Count 315 MPV 10.1 Immature Gran % (Auto) 0.900 Neut % (Auto) 69.6 Lymph % (Auto) 16.0 L [place] % (Auto) 12.2 H Eos % (Auto) 0.9 Baso % (Auto) 0.4 Absolute Neuts (auto) 11.1 H Absolute Lymphs (auto) 2.54 Nucleated RBC % 0 Differential Comment SCANNED Diff Path Review June foll Sodium 140 Potassium 3.3 Chloride 103 Carbon Dioxide 23.6 Anion Gap 14 BUN 12 Creatinine 1.01 Estim Creat Clear Calc 66.64 Est GFR (MDRD) Non-Af 67 BUN/Creatinine Ratio 12.0 Glucose 102 H Calcium 9.2 Total Bilirubin 0.53 AST 18 ALT 10 Alkaline Phosphatase 93 Total Protein 7.8 Albumin 3.9 Globulin 3.9 Albumin/Globulin Ratio 1.0 Lipase 20 Urine Color Yellow Urine Clarity Cloudy Urine pH 6.0 Ur Specific [place] 1.020 Urine Protein 100 H Urine Glucose (UA) Normal Urine Ketones Negative Urine Occult Blood 150 H Urine Nitrite Negative Urine Bilirubin Negative Urine Urobilinogen 1 H Ur Leukocyte Esterase 500 H Urine RBC 10-25 SEEN Urine WBC >100 SEEN Ur Squamous Epith Cells 0-5 SEEN Urine Bacteria 3+ Urine Mucus 0 SEEN Radiography Diagnostic Testing: Clinical Impression(s) from Imaging Studies Abdomen/Pelvis CT 05/30/24 16:13 IMPRESSION: 1. Obstructing right ureteral stone at the UVJ measuring 8 mm with moderate hydroureteronephrosis. 2. Mild hepatomegaly with diffuse hepatic steatosis. 3. Stable cystic focus within the right ovary. Follow-up pelvic ultrasound in 6 weeks is recommended for further evaluation. Reading Location: [facility] CT scan of the abdomen and pelvis was obtained. There is an obstructing right ureteral calculus at the UPJ measuring 8 mm with moderate hydronephrosis and hydroureter. There is no other acute abnormality noted. This was interpreted by the radiologist and was also independently reviewed by myself. Additional Tests and Interventions Additional Tests or Interventions: Urine culture was ordered. Treatment and Re-Evaluation :: Patient was given IV fluids, morphine, and Zofran. Patient is feeling better on reevaluation. Patient was advised of her findings. Patient was given a dose of Rocephin here. Case was discussed with Dr. Vega. He will admit the patient to his service. Patient understood and was agreeable with the plan. All questions were answered. Discharge Plan Dx/Rx/DC Orders Clinical Impression: Urinary tract infection, Leukocytosis, Calculus of proximal right ureter Disposition Disposition: Acute Care Hospital [facility]
[2024-05-30 16:36] LABS: Absolute Lymphocyte Count 2.54 X10^3/uL (0.83-4.51); Absolute Neutrophil Count 11.1 X10^3/uL (2.0-7.7); Basophil# 0.07 X10^3/uL; Basophil% 0.4 % (0-1); Eosinophil# 0.15 X10^3/uL; Eosinophils% 0.9 % (0-5); Hematocrit 35.4 % (37-47); Lymphocyte # 2.54 X10^3/ul (0.83-4.51); Mean Corp Hgb Conc 31.1 g/dL (32-36); Mean Corpuscular Hgb 23.7 pg (27.0-32.0); Mean Corpuscular Volume 76.1 fL (81-99); Mean Platelet Vol. 10.1 fl (6.2-12.0); Monocyte# 1.94 X10^3/uL; Monocyte% 12.2 % (0-10); NRBC Flagged by Analyzer 0 % (0-5); Neutrophil # 11.07 X10^3/uL (2.7-7.7); Neutrophil % 69.6 % (47-70); POSITIVE DIFFERENTIAL YES; Platelet Count 315 K/mm3 (150-450); RBC Distribution Width CV 16.5 % (11.6-14.6); RBC Distribution Width SD 44.7 fl (35.1-43.9); Red Blood Count 4.65 M/mm3 (4.2-5.4); White Blood Count 15.9 K/mm3 (4.4-11.0)
[2024-05-30] MEDS: 0.9% Normal Saline (1000mL) 1,000 ML 1000 ML IV (16:41)
[2024-05-30] MEDS: Morphine 4 MG/ML Syringe IV (16:41)
[2024-05-30] MEDS: Ondansetron 4 MG/2 ML Vial IV (16:41)
[2024-05-30 16:45] LABS: Mucous, Urine 0 SEEN /hpf (<or=2+)
[2024-05-30 16:48] LABS: Color, Urine Yellow (Yellow); Glucose, Dipstick Normal (Normal); Ketone-Dipstick Negative (Negative); Leukocyte Esterase-Dipstick 500 /ul (Negative); Nitrite-Dipstick Negative (Negative); Occult Blood-Urine 150 /ul (Negative); Protein-Dipstick 100 mg/dl (Negative); Urine Bilirubin Dipstick Negative (Negative); Urine Clarity Cloudy (Clear); Urine Urobilinogen 1 mg/dl (Normal)
[2024-05-30 16:58] LABS: Bacteria 3+ /hpf (None Seen); Red Blood Cells-Urine 10-25 SEEN /hpf (0-5); Squamous Epithelial Cells - UA 0-5 SEEN /hpf (5-10); White Blood Cells >100 SEEN /hpf (0-5)
[2024-05-30 17:08] LABS: Differential Indicated SCAN CRITERIA MET
[2024-05-30 17:17] LABS: AST(SGOT) 18 U/L (<=31); Alanine Aminotransfer ALT/SGPT 10 U/L (<=34); Albumin, Serum 3.9 g/dL (3.5-5.0); Alkaline Phosphatase 93 U/L (35-104); Anion Gap 14 (5-15); BUN 12 mg/dL (4-19); Calcium,Total 9.2 mg/dL (7.6-11.0); Carbon Dioxide 23.6 mmol/L (21.0-32.0); Chloride 103 mmol/L (98-108); Creatinine, Serum 1.01 mg/dL (0.70-1.20); EST Glomerular Filtration Rate 67 (>60); Estimated Creatinine Clearance 66.64 ml/min (50-250); Globulin 3.9 g/dL (2.2-4.2); Glucose 102 mg/dL (70-99); Lipase 20 U/L (13-75); Potassium 3.3 mmol/L (3.3-5.1); Protein, Total 7.8 g/dL (5.9-8.4); Sodium Level 140 mmol/L (133-145); Total Bilirubin 0.53 mg/dL (0.00-1.30)
[2024-05-30 17:19] LABS: Differential Comment SCANNED
[2024-05-30 18:01] VITALS: BP 133/67; PULSE 82; RESP 16; TEMP 36.6; O2SAT 96
[2024-05-30] MEDS: Ceftriaxone 1 GM/50 ML BAG IV (18:01)
[2024-05-30 19:31] VITALS: BP 164/90; PULSE 98; RESP 22; TEMP 36.2; O2SAT 95
[2024-05-30 19:55] VITALS: BMI 42.7
--- NOTE | 2024-05-30 20:47 | PCM.HP.STD ---
HPI - General General Date of Admission: 05/30/24 Date of Service: 05/30/24 Chief Complaint: right kidney stone HPI Narrative LAKEISHA TOPETE, is a 53 F who presents w severe right flank pain with stone admit to hospital take to surgery tomorrow for Right ESWL possible stent [facility] Medical History Bipolar disorder Arthritis Smoker Restless legs Anxiety Depression Sleep apnea Irregular heart beat Seizures TIA (transient ischemic attack) Hyperlipidemia Bipolar 1 disorder Hypertension Diabetes Asthma Home Medications ?Medication ?Instructions ?Recorded ?Last Taken ?Type fluoxetine 20 mg capsule 20 mg PO DAILY depression 07/18/18 05/29/24 History metformin 500 mg tablet 500 mg PO BID #20 tabs 05/25/22 05/29/24 Rx budesonide-formoterol HFA 80 2 puff inhalation BID #10.2 grams 01/04/23 05/29/24 Rx mcg-4.5 mcg/actuation aerosol inhaler (Symbicort) ibuprofen 800 mg tablet 800 mg PO TID PRN pain #20 tabs 09/07/23 12/01/23 Rx epinephrine 0.3 mg/0.3 mL 0.3 mg IM UD PRN anaphylaxis 12/01/23 Unknown History injection, auto-injector glipizide 5 mg tablet, extended 5 mg PO DAILY 12/01/23 05/29/24 History release 24 hr acetaminophen 500 mg tablet 500 mg PO Q6H PRN pain 12/02/23 12/01/23 History albuterol sulfate 90 mcg/actuation 1 - 2 puff inhalation Q4H PRN 12/02/23 Unknown History aerosol inhaler (Ventolin HFA) Wheezing aripiprazole 5 mg tablet 5 mg PO DAILY 12/02/23 05/29/24 History losartan 25 mg tablet 25 mg PO DAILY 12/02/23 05/29/24 History oxybutynin chloride 5 mg 5 mg PO DAILY 12/02/23 05/29/24 History tablet,extended release 24 hr simvastatin 80 mg tablet 80 mg PO QHS 12/02/23 05/29/24 History fluticasone propionate 50 2 spray intranasal DAILY 05/30/24 Unknown History mcg/actuation nasal spray,suspension Allergy/AdvReac Type Severity Reaction Status Date / Time Penicillins AdvReac Vomiting Verified 05/30/24 16:02 Surgical History S/P dilatation and curettage Hx of cholecystectomy Hx of breast surgery Hx of tubal ligation Social History Smoking Status: Current some day smoker tobacco type: e-cigarettes and smokeless tobacco Vital Signs Vital Signs Vital Signs: 05/30/24 16:02 05/30/24 18:01 05/30/24 19:31 Temperature 98.5 F 97.9 F 97.2 F L Temperature Source Oral Oral Pulse Rate 73 82 98 Respiratory Rate 16 16 22 H Blood Pressure 121/70 H 133/67 H 164/90 H Blood Pressure Mean 87 89 114 Pulse Ox 98 96 95 Oxygen Delivery Method Room Air Room Air Weight Weight: 89.675 kg Body Mass Index (BMI) 42.7 Physical Exam Const alert and oriented x3 General Appearance: cooperative HEENT normocephalic, head/scalp atraumatic, EAC's normal and TM's normal bilaterally Eyes PERRL and EOMs intact bilaterally Pupil: sluggish Neck no lymphadenopathy, supple and no JVD General: trachea midline Lymph Lymphatic: no lymphadenopathy noted, lymphedema and lymphadenopathy Resp normal respiratory effort, normal air movement and clear to auscultation bilaterally Cardio regular rate, regular rhythm and peripheral pulses 2+ throughout GI soft to palpation, non-tender and non-distended Extremity normal capillary refill and no clubbing, cyanosis or edema General Extremity: no tenderness to palpation of joints or extremities Skin no rashes or lesions noted General Skin Exam: turgor normal Lesions: no lesions Rashes: no rashes Neuro CN's II-XII intact bilaterally Speech: speech normal Motor Exam: strength 5/5 throughout; Negative for general weakness Psych thought process normal, cooperative and affect normal Appearance: appropriate Results Medical Records Data Attestation: I reviewed the patient's medical records Lab / Micro Data 05/30/24 16:29 05/30/24 16:29 Labs: Laboratory Results - last 24 hr 05/30/24 16:03: Urine Color Yellow, Urine Clarity Cloudy, Urine pH 6.0, Ur Specific [place] 1.020, Urine Protein 100 H, Urine Glucose (UA) Normal, Urine Ketones Negative, Urine Occult Blood 150 H, Urine Nitrite Negative, Urine Bilirubin Negative, Urine Urobilinogen 1 H, Ur Leukocyte Esterase 500 H, Urine RBC 10-25 SEEN, Urine WBC >100 SEEN, Ur Squamous Epith Cells 0-5 SEEN, Urine Bacteria 3+, Urine Mucus 0 SEEN 05/30/24 16:29: WBC 15.9 H, RBC 4.65, Hgb 11.0 L, Hct 35.4 L, MCV 76.1 L, MCH 23.7 L, MCHC 31.1 L, RDW Std Deviation 44.7 H, RDW Coeff of Yohannes 16.5 H, Plt Count 315, MPV 10.1, Immature Gran % (Auto) 0.900, Neut % (Auto) 69.6, Lymph % (Auto) 16.0 L, [place] % (Auto) 12.2 H, Eos % (Auto) 0.9, Baso % (Auto) 0.4, Absolute Neuts (auto) 11.1 H, Absolute Lymphs (auto) 2.54, Nucleated RBC % 0, Differential Comment SCANNED, Diff Path Review June, Sodium 140, Potassium 3.3, Chloride 103, Carbon Dioxide 23.6, Anion Gap 14, BUN 12, Creatinine 1.01, Estim Creat Clear Calc 66.64, Est GFR (MDRD) Non-Af 67, BUN/Creatinine Ratio 12.0, Glucose 102 H, Calcium 9.2, Total Bilirubin 0.53, AST 18, ALT 10, Alkaline Phosphatase 93, Total Protein 7.8, Albumin 3.9, Globulin 3.9, Albumin/Globulin Ratio 1.0, Lipase 20 Imaging Radiology Impression Abdomen/Pelvis CT 05/30/24 16:13 IMPRESSION: 1. Obstructing right ureteral stone at the UVJ measuring 8 mm with moderate hydroureteronephrosis. 2. Mild hepatomegaly with diffuse hepatic steatosis. 3. Stable cystic focus within the right ovary. Follow-up pelvic ultrasound in 6 weeks is recommended for further evaluation. Reading Location: [id number] Assessment & Plan Assessment/Plan (1) Calculus of proximal right ureter: PLAN: plan for right ESWl AND STETN IN AM. NPO (2) Leukocytosis:
--- NOTE | 2024-05-30 20:48 | PCM.DC ---
Discharge Instructions Diet Discharge Diet: No restrictions DC O2, CPAP, BIPAP needs Home O2 Discharge instructions: No Dressing / Incision Discharge Activity: Return to Normal Activity and May Not Drive (while taking narcotic pain medications.) Dressing / Incision Call your doctor if you observe: Fever of 101 or Higher Follow Up Care Please Follow Up With: Linwood Vega MD When: Call [phone] for an appointment Test Results: Test results from this visit will be discussed in further detail at your follow-up appointment, if applicable. Discharge Plan Admission Admit Date/Time: 05/30/24 19:16 Attending Provider: Linwood Vega Primary Care Provider: Desire Gonzales NP Discharge Orders/Prescriptions Prescriptions: No Action fluoxetine 20 MG capsule 20 mg PO DAILY metformin 500 mg tablet 500 mg PO BID Qty: 20 0RF budesonide-formoterol [Symbicort] 80-4.5 mcg/actuation HFA aerosol inhaler 2 puff inhalation BID Qty: 10.2 0RF ibuprofen 800 mg tablet 800 mg PO TID PRN (Reason: pain) Qty: 20 0RF glipizide 5 mg tablet extended release 24hr 5 mg PO DAILY epinephrine 0.3 mg/0.3 mL auto-injector 0.3 mg IM UD PRN (Reason: anaphylaxis) acetaminophen 500 mg tablet 500 mg PO Q6H PRN (Reason: pain) aripiprazole 5 mg tablet 5 mg PO DAILY simvastatin 80 mg tablet 80 mg PO QHS losartan 25 mg tablet 25 mg PO DAILY oxybutynin chloride 5 mg tablet extended release 24hr 5 mg PO DAILY albuterol sulfate [Ventolin HFA] 90 mcg/actuation HFA aerosol inhaler 1 - 2 puff inhalation Q4H PRN (Reason: Wheezing) Rx Instructions: please give spacer fluticasone propionate 50 mcg/actuation spray,suspension 2 spray INTRANASAL DAILY Referrals / Follow Up: Desire Gonzales NP, [employer] [Primary Care Provider] -
[2024-05-30 21:00] VITALS: BP 134/75; PULSE 87; RESP 18; TEMP 37; O2SAT 98
[2024-05-30] MEDS: Ciprofloxacin 400 MG/200 ML BAG 200 MG IV (22:10)
[2024-05-30] MEDS: 0.9% Normal Saline (1000mL) 1,000 ML 125 ML IV (22:10)
[2024-05-30] MEDS: Atorvastatin Calcium 40 MG Tablet PO (22:11)
[2024-05-30] MEDS: Docusate Sodium 100 MG Capsule 200 MG PO (22:11)
[2024-05-30] MEDS: Ketorolac 15 MG/ML Vial IV (22:11)
[2024-05-30 23:25] VITALS: PULSE 88; RESP 16
[2024-05-30] MEDS: Albuterol 2.5 MG/3 ML VIAL.NEB. INHALATION (23:25)
[2024-05-30] MEDS: Budesonide Respules 0.5 MG/2 ML AMPUL.NEB. INHALATION (23:25)
[2024-05-31] VITALS (14 sets, daily range): BP systolic 114–144; BP diastolic 54–88; PULSE 73–97; RESP 16–18; TEMP 36–36.9; O2SAT 95–100; BMI 42.7
--- NOTE | 2024-05-31 06:00 | EKG12_ITS ---
Test Reason : PRE-OP Blood Pressure : */* mmHG Vent. Rate : 88 BPM Atrial Rate : 88 BPM P-R Int : 140 ms QRS Dur : 96 ms QT Int : 380 ms P-R-T Axes : 43 7 73 degrees QTcB Int : 459 ms Normal sinus rhythm Minimal voltage criteria for LVH, may be normal variant ( R in aVL ) Possible Lateral infarct , age undetermined Inferior infarct (cited on or before 18-Jul-2018) Abnormal ECG Confirmed by Ryan Lomax [id number]), food editor AYE DIAZ ([id number]) on 05/31/2024 7:57:52 AM Referred By: MORGAN Confirmed By: Ryan Lomax
[2024-05-31 06:23] LABS: Absolute Lymphocyte Count 3.03 X10^3/uL (0.83-4.51); Absolute Neutrophil Count 10.2 X10^3/uL (2.0-7.7); Basophil# 0.06 X10^3/uL; Basophil% 0.4 % (0-1); Eosinophil# 0.28 X10^3/uL; Eosinophils% 1.8 % (0-5); Hematocrit 30.7 % (37-47); Hemoglobin 9.3 g/dL (12.0-15.0); Lymphocyte # 3.03 X10^3/ul (0.83-4.51); Lymphocyte % 19.7 % (19-41); Mean Corp Hgb Conc 30.3 g/dL (32-36); Mean Corpuscular Hgb 23.5 pg (27.0-32.0); Mean Corpuscular Volume 77.7 fL (81-99); Mean Platelet Vol. 10.4 fl (6.2-12.0); Monocyte# 1.69 X10^3/uL; NRBC Flagged by Analyzer 0 % (0-5); Neutrophil # 10.16 X10^3/uL (2.7-7.7); Neutrophil % 66.3 % (47-70); POSITIVE DIFFERENTIAL YES; Platelet Count 291 K/mm3 (150-450); RBC Distribution Width CV 16.3 % (11.6-14.6); RBC Distribution Width SD 46.5 fl (35.1-43.9); Red Blood Count 3.95 M/mm3 (4.2-5.4); White Blood Count 15.4 K/mm3 (4.4-11.0)
[2024-05-31 06:31] LABS: Differential Indicated SCAN CRITERIA MET
[2024-05-31 06:36] LABS: Anion Gap 13 (5-15); BUN 14 mg/dL (4-19); BUN/Creat Ratio 16.9 RATIO (10-20); Calcium,Total 8.3 mg/dL (7.6-11.0); Carbon Dioxide 21.3 mmol/L (21.0-32.0); Chloride 104 mmol/L (98-108); Creatinine, Serum 0.82 mg/dL (0.70-1.20); EST Glomerular Filtration Rate 87 (>60); Estimated Creatinine Clearance 80.94 ml/min (50-250); Glucose 76 mg/dL (70-99); Potassium 3.1 mmol/L (3.3-5.1); Sodium Level 138 mmol/L (133-145)
[2024-05-31] MEDS: 0.9% Normal Saline (1000mL) 1,000 ML 125 ML IV (06:51)
[2024-05-31 07:23] LABS: Hemoglobin A1c 6.4 % (<=5.6)
[2024-05-31] MEDS: Albuterol 2.5 MG/3 ML VIAL.NEB. INHALATION ×2 (07:53→12:44)
[2024-05-31] MEDS: Budesonide Respules 0.5 MG/2 ML AMPUL.NEB. INHALATION (07:54)
[2024-05-31] MEDS: Ketorolac 15 MG/ML Vial IV (08:11)
[2024-05-31] MEDS: Losartan Potassium 25 MG Tablet PO (08:14)
[2024-05-31] MEDS: Fluticasone 0.05% 1 SPRAY NASAL.SRY 2 SPRAY NASAL (08:15)
[2024-05-31] MEDS: FLUoxetine 20 MG Capsule PO (08:15)
[2024-05-31] MEDS: ARIPiprazole 5 MG Tablet PO (08:16)
[2024-05-31 08:38] LABS: Platelet Estimate ADEQUATE (ADEQ)
[2024-05-31] MEDS: Ciprofloxacin 400 MG/200 ML BAG 200 MG IV (09:05)
[2024-05-31] MEDS: Ondansetron 4 MG/2 ML Vial IV (09:54)
--- NOTE | 2024-05-31 13:32 | NURSING ---
pt off unit via bed for surgery
--- NOTE | 2024-05-31 13:54 | PRE.ANES_ITS ---
ASA Classification* ASA Classification ASA Classification: 3 Assessment & Plan Anesthesia* Anesthesia Assessment Anesthesia Assessment: Discussed sedation and/or anesthesia options, risks, benefits, and alternatives with patient/parents/legal guardian/POA. Questions invited. The patient/parents/legal guardian/POA seems to understand and agrees to proceed with anesthesia plan. Reviewed the physical assessment, medical history, allergy history and patient home medications list prior to surgery/procedure/anesthetic and documented any changes. Performed airway and anesthesia risk assessments. Anesthesia Type Anesthesia Type: General Anesthesia Focused Assessment* Temperature: 96.8 F Pulse Rate: 87 Blood Pressure: 144/88 Respiratory Rate: 18 Pulse Ox: 100 Airway Assessment Mouth opens: >3 cm Mallampati Score: II Focused Labs Anesthesia Preop lab: CBC WBC 15.4 K/mm3 (4.4-11.0) H 05/31/24 05:10 5 RBC 3.95 M/mm3 (4.2-5.4) L 05/31/24 05:10 05/31/24 Hgb 9.3 g/dL (12.0-15.0) L 05/31/24 05:10 05/31/24 Hct 30.7 % (37-47) L 05/31/24 05:10 05/31/24 Plt Count 291 K/mm3 (150-450) 05/31/24 05:10 05/31/24 CHEMISTRY Potassium 3.1 mmol/L (3.3-5.1) L 05/31/24 05:10 05/31/24 Sodium 138 mmol/L (133-145) 05/31/24 05:10 05/31/24 BUN 14 mg/dL (4-19) 05/31/24 05:10 05/31/24 Creatinine 0.82 mg/dL (0.70-1.20) 05/31/24 05:10 05/31/24 Glucose 76 mg/dL (70-99) 05/31/24 05:10 05/31/24 POC Glucose 148 mg/dL (74-106) H 12/03/23 05:10 12/03/23 COAG PT 14.5 SECONDS (11.7-14.9) 12/02/23 13:45 10/03/ 24 HCG, Quant < 1 mIU/mL (<9 non-preg) 03/12/12 12:46 3 Urine Test Negative Negative 05/12/24 02:38 05/12/24 Pre-Assessment Diagnosis/Proposed Procedure Planned Operative Procedure(s): Right ESWL, possible stent placement Anesthesia History 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 When Was Last Pacemaker Check QUESTION #4 FULL TEXT: You/Your Family Experience fever (hyperthermia) with Anesthesia Last Oral Intake Last Oral intake: Last Oral Intake NPO since 00:00 05/31/24 13:09 Meds taken in AM with sips of Yes 05/31/24 13:09 water? 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 Has anyone observed you stop Yes 05/30/24 19:55 breathing during sleep? STOP Results Positive 05/30/24 19:55 QUESTION #5 FULL TEXT : Do you snore loudly (louder than talking or can be heard through closed doors)? 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 Specify any problems Hx of Preganancy in last 3 No 05/30/24 19:55 Months Nurse Filling Out Transfusion FSTEINER 05/30/24 19:55 & Questions: Date: 05/30/24 05/30/24 19:55 Time: 19:57 05/30/24 19:55 Patient unable to answer at this time (ie. 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 INHALATION Q4H PRN Wheezing Albuterol Sulfate 2.5 mg 05/30/24 22:00 05/31/24 12:44 Albuterol 2.5 Mg/3 Ml Vial.Neb. INHALATION 2.5 mg Q6HWA.RT ABEL Administration Aripiprazole 5 mg 05/31/24 10:00 05/31/24 08:16 Aripiprazole 5 Mg Tablet PO 5 mg DAILY ABEL Administration Protocol Atorvastatin Calcium 40 mg 05/30/24 22:00 05/30/24 22:11 Atorvastatin Calcium 40 Mg Tablet PO 40 mg QHS ABEL Administration Budesonide 0.5 mg 05/30/24 22:00 05/31/24 07:54 Budesonide Respules 0.5 Mg/2 Ml Ampul.Neb. INHALATION 0.5 mg Q12H.RT ABEL Administration Docusate Sodium 200 mg 05/30/24 22:00 05/31/24 08:15 Docusate Sodium 100 Mg Capsule PO Not Given BID ABEL Fluoxetine HCl 20 mg 05/31/24 10:00 05/31/24 08:15 Fluoxetine 20 Mg Capsule PO 20 mg DAILY ABEL Administration Fluticasone Propionate 2 spray 05/31/24 10:00 05/31/24 08:15 Fluticasone 0.05% 1 [place] Nasal.Sry NASAL 2 spray DAILY ABEL Administration Glipizide 5 mg 05/31/24 08:00 05/31/24 08:09 Glipizide Xl 5 Mg Tablet PO Not Given DAILYCM ABEL Sodium Chloride 1,000 mls @ 125 mls/hr 05/30/24 20:55 05/31/24 13:12 IV 05/31/24 20:54 0 mls/hr .Q8H ABEL Infusion Ketorolac Tromethamine 15 mg 05/30/24 20:54 05/31/24 08:11 Ketorolac 15 Mg/Ml Vial IV 06/01/24 20:56 15 mg Q6H PRN PRN Administration P Losartan Potassium 25 mg 05/31/24 10:00 05/31/24 08:14 Losartan Potassium 25 Mg Tablet PO 25 mg DAILY ABEL Administration Protocol Morphine Sulfate 2 mg 05/30/24 20:54 Morphine 2 Mg/Ml Syringe IV Q2H PRN PRN Pain Score 6-10 Ondansetron HCl 4 mg 05/31/24 09:27 05/31/24 09:54 Ondansetron 4 Mg/2 Ml Vial IV 4 mg Q6H PRN PRN Administration NAUSEA/VOMITING Oxycodone HCl 5 - 10 mg 05/30/24 20:54 Oxycodone 5 Mg Tablet PO Q6H PRN PRN Pain Score 4-10 PFSH Medical History Bipolar disorder Arthritis Smoker Restless legs Anxiety Depression Sleep apnea Irregular heart beat Seizures TIA (transient ischemic attack) Hyperlipidemia Bipolar 1 disorder Hypertension Diabetes Asthma Home Medications ?Medication ?Instructions ?Recorded ?Last Taken ?Type fluoxetine 20 mg capsule 20 mg PO DAILY depression 05/29/24 History metformin 500 mg tablet 500 mg PO BID #20 tabs 05/2505/29/24 Rx budesonide-formoterol HFA 80 2 puff inhalation BID #10 .2 grams 01/04/23 05/29/24 Rx mcg-4.5 mcg/actuation aerosol inhaler (Symbicort) ibuprofen 800 mg tablet 800 mg PO TID PRN pain #20 t abs 09/07/23 12/01/23 Rx epinephrine 0.3 mg/0.3 mL 0.3 mg IM UD PRN anaphylaxis 12/01/23 Unknown History injection, auto-injector glipizide 5 mg tablet, extended 5 mg PO DAILY 12/01/23 05/29/24 History release 24 hr acetaminophen 500 mg tablet 500 mg PO Q6H PRN pain 05/2212/01/23 History albuterol sulfate 90 mcg/actuation 1 - 2 puff inhalati on Q4H PRN 12/02/23 Unknown History aerosol inhaler (Ventolin HFA) Wheezing aripiprazole 5 mg tablet 5 mg PO DAILY 12/02/2305/29 History losartan 25 mg tablet 25 mg PO DAILY 12/02/2305/01 History oxybutynin chloride 5 mg 5 mg PO DAILY 12/02/2305/29 History tablet,extended release 24 hr simvastatin 80 mg tablet 80 mg PO QHS 12/02/23 History fluticasone propionate 50 2 spray intranasal DAILY 03/25 Unknown History mcg/actuation nasal spray,suspension Allergy/AdvReac Type Severity Reaction Status Date / Time Penicillins AdvReac Vomiting Verified 05/30/24 16:02 Surgical History S/P dilatation and curettage Hx of cholecystectomy Hx of breast surgery Hx of tubal ligation Social History Smoking Status: Current some day smoker tobacco type: e-cigarettes and smokeless tobacco Review of Systems (Anesthesia) ROS Narrative System reviewed and no additional complaints, except as documented.
--- NOTE | 2024-05-31 15:42 | PCM.OPRPT ---
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 In the preoperative area and x-ray was done to confirm the location of the stone. The x-ray was reviewed and the stone location was reviewed. In the preoperative setting I spoke with the patient regarding the treatment of the stone how the treatment would be conducted and the expectations after surgery. The patient understands there is a risk of bleeding and infection. Also discussed the very rare risk of hematoma or damage to the kidney. We also discussed the risk that the shockwave machine will fail to break the stone adequately and that the patient may need other surgical procedures. I also discussed the possibility that the patient may need a stent after the procedure. After reviewing the procedure with the patient, the patient is signed the consent form all the patient's questions were addressed and was taken back to the operating room for treatment of a kidney stone. Patient was taken back to the operating room, the patient was identified by the nursing staff, I identified the side of the treatment and the patient side of treatment had been marked by my initials. The patient underwent general anesthetic and was placed supine on the lithotripter table. I then used fluoroscopy to identify the stone on the right side. The urethra and genitals were prepped and draped in usual sterile fashion. Using a 21 [place] rigid cystourethroscope the entire length of the urethra was normal then went into the bladder. Identified the trigone the left and right ureteral orifice. I then cannulated the right ureteral orifice and advanced a wire up into the kidney. I then backloaded a 5 [place] open ended catheter over the wire and injected contrast to delineate the anatomy. After the retrograde was performed I then used fluoroscopic images and guidance to advanced a wire up into the kidney and over the 0.038 glidewire I advanced a 6 [place] by 26 cm double pigtail stent. I then pulled the 0.038 Glidewire off and the stent coiled in the kidney bladder good position. The bladder was then drained. We confirmed the position of the stent by fluoroscopy. I then positioned the patient under the lithotripter and I used triangulation technique to identify the location of the stone and then I made sure that the stone was engaged in the F2 focal point of F2 Donier lithoprior machine. Once the patient was positioned appropriately and the stone was identified and placed in the F2 focal point of the lithotripter machine I then proceeded with shockwave lithotripsy. In the beginning the shockwave was delivered at a rate of 90 shocks per minute, anesthesia monitored the EKG for any ectopy. The power was slowly increased to 5 kV and subsequently at the 7 kV. I then proceeded with the treatment with shock wave therapy and around during the treatment to make sure the stone stayed in the F2 focal point during the entire treatment and after 3000 shockwaves were delivered to the stone under fluoroscopic guidance the treatment was completed. The patient was given instructions to call the office to make an a follow-up appointment with an x-ray to evaluate the success of the treatment, patient understands that its possible the stones may need another procedure. At this point the patient's anesthetic was reversed patient was extubated and taken back to the PACU in stable condition. Surgical Findings: stone treated in proximal ureter Complications Complications: No Admit VTE Documentation VTE Present on Admission: No VTE Mechan Device Prophylaxis: SCD's VTE Pharm Prophylaxis ordered?: No
--- NOTE | 2024-05-31 15:52 | CASEMGMT ---
Pt has an order for DC placed. Pt is currently off of the floor and is in the PACU after surgery. CM to follow.
--- NOTE | 2024-05-31 15:59 | PCM.POST.ANE ---
Anesthesia: Postop Eval I Current Vital Signs Temperature: 97 F Pulse Rate: 97 Blood Pressure: 121/83 Respiratory Rate: 18 Pulse Ox: 99 Assessment Airway patent: Yes Spontaneous unlabored respirations: Yes nausea: No Vomiting: No Anesthesia Complication: No Fluid Hydration Crystalloid volume administer (ml): 300 Total IV fluid infused: 300 Progress Note Anesthesia document: Postop Eval 1 completed: Yes
--- NOTE | 2024-05-31 16:00 | NURSING ---
All documentation by nursing care attendant Khadijah Christiansen reviewed by nursing informatics analyst Nya ZAPATAN, RN.
--- NOTE | 2024-05-31 16:03 | POSTOPAN2_ITS ---
Anesthesia Postop Eval I Sum Postop Eval Completion status Anesthesia document: Postop Eval 1 completed: Yes Anesthesia Postop Eval I Summary Anesthesia Postop Eval I Summary: Anesthesia Postop Eval I: Assessment Summary Airway patent Yes 05/31/24 15:59 PEARL GLUE [email or web address].[email or web address] Spontaneous unlabored Yes 05/31/24 15:59 PEARL GLUE OPERATOR.[email or web address] respirations Mental status nausea No 05/31/24 15:59 PEARL GLUE OPERATOR.TNES Vomiting No 05/31/24 15:59 PEARL GLUE OPERATOR.TNES Anesthesia Postop Eval I: Fluid Summary Crystalloid volume administer 300 05/31/24 15:59 PEARL GLUE OPERATOR.TNES (ml) Colloids volume administered ( ml) Blood Product volume administered (ml) Total IV fluid infused 300 05/31/24 15:59 PEARL GLUE OPERATOR.TNES Anesthesia Postop Eval I: Summary Notes Anesthesia Complication No 05/31/24 15:59 PEARL GLUE OPERATOR.TNES Anesthesia Complication Comment: Post-operative progress note Anesthesia: Postop Eval II Evaluation Mental status: Awake Pain Level: 0 nausea: No Vomiting: No
--- NOTE | 2024-05-31 16:03 | PCM.POSTANE2 ---
Anesthesia Postop Eval I Sum Postop Eval Completion status Anesthesia document: Postop Eval 1 completed: Yes Anesthesia Postop Eval I Summary Anesthesia Postop Eval I Summary: Anesthesia Postop Eval I: Assessment Summary Airway patent Yes 05/31/24 15:59 AIR EXPORT OPERATIONS AGENT.[email or web address] Spontaneous unlabored Yes 05/31/24 15:59 AIR EXPORT OPERATIONS AGENT.TNES respirations Mental status nausea No 05/31/24 15:59 AIR EXPORT OPERATIONS AGENT.TNES Vomiting No 05/31/24 15:59 AIR EXPORT OPERATIONS AGENT.TNES Anesthesia Postop Eval I: Fluid Summary Crystalloid volume administer 300 05/31/24 15:59 AIR EXPORT OPERATIONS AGENT.TNES (ml) Colloids volume administered ( ml) Blood Product volume administered (ml) Total IV fluid infused 300 05/31/24 15:59 AIR EXPORT OPERATIONS AGENT.TNES Anesthesia Postop Eval I: Summary Notes Anesthesia Complication No 05/31/24 15:59 AIR EXPORT OPERATIONS AGENT.TNES Anesthesia Complication Comment: Post-operative progress note Anesthesia: Postop Eval II Evaluation Mental status: Awake Pain Level: 0 nausea: No Vomiting: No
--- NOTE | 2024-05-31 16:57 | CASEMGMT ---
EVELYN BIRMINGHAM Assessment Face to Face with patient for initial transition planning/care coordination assessment. EVELYN BIRMINGHAM introduced self and role at [facility], pt voices understanding. Pt is A&Ox4 and is resting comfortably in bed and is calm. Care providers, pharmacy, and demographics verified. Admitting dx: Kidney Stone LACE Strata: 3 PCP: Anju Gonzales Specialists: Silvia (Uro) Preferred Pharmacy: [facility] Insurance: [facility]/[employer] Prescription Benefit: Yes LNOK: Efrain Obrien () Living Arrangements: Pt lives with her SO, daughter, and her daughter's SO on the second level of an apartment complex with a flight of steps to manage with a handrail ADLs/IADLs: Ind. 6-Click is 24 Transportation: Pt states that she does not drive. Pt states that she normally uses public transportation. Pt states that she also has some family members that are able to drive her home today and denies needs or concerns DME: Functioning BGM with sufficient supplies. Pt also has access to a cane. Denies further needs or concerns HHC/SNF: Denies Hx or needs Pt?s goal: Home Plan: Home, no additional needs. Pt states that she feels safe returning home today with her family and denies the need for HHC or OP Tx. Pt states that she has urinated post surgery already without any issues. Pt denies further questions or concerns at this time. Margi Erazo RN, CM
[2024-06-04 15:20] LABS: Pathologist Review May foll
== END 2024-05-31 19:00 | disposition home or self-care (01) ==
LOC: ED 18:37 → MS3 20:55
PROVIDERS: Anesthesiology; Admitting Provider Urology; Emergency Provider Emergency Medicine; PCP Nurse Practitioner Family; Visit Provider Urology
PROC: (CPT 50590; principal; 2024-05-31 15:50)
DX: N20.1 Calculus of ureter (principal); F31.9 Bipolar disorder, unspecified; E11.9 Type 2 diabetes mellitus without complications; I10 Essential (primary) hypertension; E78.5 Hyperlipidemia, unspecified; N39.0 Urinary tract infection, site not specified; Z79.84 Long term (current) use of oral hypoglycemic drugs; Z79.1 Long term (current) use of non-steroidal anti-inflammatories (NSAID); Z79.51 Long term (current) use of inhaled steroids; Z86.73 Personal history of transient ischemic attack (TIA), and cerebral infarction without residual deficits; Z98.51 Tubal ligation status; Z90.49 Acquired absence of other specified parts of digestive tract; F17.290 Nicotine dependence, other tobacco product, uncomplicated; D72.829 Elevated white blood cell count, unspecified
CPT/HCPCS: 52356; 00873; C1769 ×2; C2617; 36415; 74176; 80048; 80053; 81001; 83036; 83690; 85025; 87077; 87086; 87088; 87186; 93005; 94640; 96361; 96365; 96366; 96375; 96376; 99221; 99285; A4216; G0378; J0744; J2405

== ENCOUNTER 2024-08-29 14:01 | Emergency (ER) | payer MEDICAID, SELFPAY ==
[2024-08-29] VITALS (7 sets, daily range): BP systolic 136–172; BP diastolic 76–90; PULSE 71–89; RESP 14–18; TEMP 36.6–36.7; O2SAT 93–98; BMI 40.7
--- NOTE | 2024-08-29 15:10 | CT_ITS ---
PROCEDURE: ABDOMEN/PELVIS WITHOUT CONT 08/29/2024 REASON FOR EXAM: PAIN TECHNIQUE: ABDOMEN/PELVIS WITHOUT CONT Noncontrast technique limits evaluation of the abdominal and pelvic viscera. Coronal and Sagittal reconstruction series were provided. One or more dose reduction techniques were used (e.g., Automated exposure control, adjustment of the mA and/or kV according to patient size, use of iterative reconstruction technique). RADIATION DOSE SUMMARY: CTDlvol: 18.63 mGy DLP: 898.22 mGycm COMPARISON: 05/30/2024. FINDINGS: The peripheral soft tissues are unremarkable. Degenerative changes of the spine. Normal caliber abdominal aorta. No suspicious lymphadenopathy. Borderline enlargement of the liver. The gallbladder is surgically absent. The pancreas, spleen, and adrenals are unremarkable. Right distal ureter 6 mm calculus with minimal upstream hydroureteronephrosis. Additional bilateral punctate nonobstructing calculi. The urinary bladder is unremarkable. CT/Abdomen/Pelvis without Cont IMPRESSION: Right distal ureter 6 mm calculus with minimal upstream hydroureteronephrosis. Additional bilateral punctate nonobstructive nephrolithiasis. Reading Location: [place] [id number]
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
[2024-08-29 16:18] LABS: Hematocrit 31.9 % (37-47); Hemoglobin 9.6 g/dL (12.0-15.0); Immature Granulocytes Count 0.040 X10^3/uL (0.0-0.0); Mean Corp Hgb Conc 30.1 g/dL (32-36); Mean Corpuscular Volume 73.5 fL (81-99); Mean Platelet Vol. 10.1 fl (6.2-12.0); NRBC Flagged by Analyzer 0 % (0-5); Platelet Count 315 K/mm3 (150-450); RBC Distribution Width CV 16.3 % (11.6-14.6); RBC Distribution Width SD 43.4 fl (35.1-43.9); Red Blood Count 4.34 M/mm3 (4.2-5.4); White Blood Count 9.1 K/mm3 (4.4-11.0)
[2024-08-29] MEDS: 0.9% Normal Saline (1000mL) 1,000 ML 999 ML IV (16:21)
[2024-08-29 16:43] LABS: Anion Gap 11 (5-15); BUN 15 mg/dL (4-19); BUN/Creat Ratio 20.5 RATIO (10-20); Calcium,Total 9.0 mg/dL (7.6-11.0); Carbon Dioxide 25.0 mmol/L (21.0-32.0); Chloride 104 mmol/L (98-108); Estimated Creatinine Clearance 90.47 ml/min (50-250); Glucose 119 mg/dL (70-99); Potassium 3.3 mmol/L (3.3-5.1)
[2024-08-29 17:57] LABS: Color, Urine Straw (Yellow); Glucose, Dipstick Normal (Normal); Ketone-Dipstick Negative (Negative); Leukocyte Esterase-Dipstick 500 /ul (Negative); Nitrite-Dipstick Negative (Negative); Occult Blood-Urine 50 /ul (Negative); Protein-Dipstick 15 mg/dl (Negative); Specific Gravity, Urine 1.020 (1.002-1.030); Urine Bilirubin Dipstick Negative (Negative)
[2024-08-29 19:26] LABS: Squamous Epithelial Cells - UA 5-10 SEEN /hpf (5-10)
[2024-08-29 19:27] LABS: Mucous, Urine 1+ /hpf (<or=2+); Red Blood Cells-Urine 0-5 SEEN /hpf (0-5)
[2024-08-29 19:28] LABS: Calcium Oxalate Crystals Ur RARE /hpf (<or=2+)
[2024-08-29] MEDS: levoFLOXacin IV 750 MG/150 ML BAG 100 MG IV (19:57)
[2024-08-29] MEDS: HYDROcodone Bitartrate/Apap 5/325 Tablet PO (21:35)
--- OUTSIDE RECORDS SUMMARY | 2024-08-29 23:04 | XMS RPT_ITS | CCD ---
Author Organization [facility] Care Team Providers Care Turbine Technician Name Role Phone Morelia Kilgore Primary Care Provider [phone] FABRICIO NESS Referring Unavailable RADHA WILKINS Admitting Unavailable FIORDALIZA SCRUGGS Attending Unavailab FLORI Lopez Attending Unavailable MORELIA KILGORE Primary Care Unavailable SYSTEM, PROVIDER NOT IN Attending Unavaila MORELIA Andersen Primary Care Unavailable MEDONE TISH, GENERIC Attending Unavailable FLORI BURCH Referring Unavailable Magui PHILLIPS MD, Frank A Primary Care Provider Brunilda Brown DO Unavailable [phone] Brunilda Brown DO Primary Care Provider BRUNILDA BROWN Unavailable RAPHAEL, JENNIFER Unavailable STEPHANIE, BRUNILDA Unavailable RAPHAEL, JENNIFER Unavailable BRUNILDA BROWN Unavailable RAPHAEL, JENNIFER Unavailable BRUNILDA BROWN Unavailable RAPHAEL, JENNIFER Unavailable CRUZITO BROWNEW Unavailable RAPHAEL, JENNIFER Unavailable BRUNILDA BROWN Primary Care UnavailFABRICIO Farrar Attending Unavailable SYSTEM, PROVIDER NOT IN Admitting Unavaila BRUNILDA Tan Primary Care Unavailabl e BRUNILDA BROWN Primary Care Unavailabl ROB Trevizo Attending Unavailab RADHA Quinones Attending Unavailable BRUNILDA BROWN Primary Care Unavailabl e STEPHANIE, BRUNILDA GAN Primary Care Unavailabl e COSMO LEVY, YAMILET ANDREWS Attending Unavailab le STEPHANIE, BRUNILDA Unavailable RAPHAEL, JENNIFER Unavailable STEPHANIE, BRUNILDA Unavailable RAPHAEL, JENNIFER Unavailable STEPHANIE, BRUNILDA Unavailable RAPHAEL, JENNIFER Unavailable STEPHANIE, BRUNILDA Unavailable RAPHAEL, JENNIFER Unavailable STEPHANIE, BRUNILDA Unavailable RAPHAEL, JENNIFER Unavailable STEPHANIE, BRUNILDA Unavailable RAPHAEL, JENNIFER Unavailable STEPHANIE, BRUNILDA Unavailable RAPHAEL, JENNIFER Unavailable STEPHANIE, BRUNILDA Unavailable RAPHAEL, JENNIFER Unavailable STEPHANIE, BRUNILDA Unavailable RAPHAEL, JENNIFER Unavailable STEPHANIE, BRUNILDA Unavailable RAPHAEL, JENNIFER Unavailable Unavailable Primary Care Provider Unavailabl e STEPHANIE, BRUNILDA Unavailable RAPHAEL, JENNIFER Unavailable STEPHANIE BRUNILDA Admitting Unavailable [facility], [facility] Primary Care Pro vider [facility], [facility] Referring Provid er KLEBER Corado Attending Provider [phone] KLEBER Corado Attending Provider [phone] [facility], [facility] Primary Care Pro vider [facility], [facility] Referring Provid er KLEBER Corado Attending Provider [phone] STEPHANIE, BRUNILDA J Admitting Unavailable STEPHANIE, BRUNILDA J Attending Unavailable JADE, MICHELLE A Consulting Unavailable JUAN F, CONNOR Admitting Unavailable JUAN F, CONNOR Attending Unavailable STEPHANIE, BRUNILDA J Consulting Unavailable STEPHANIE, BRUNILDA J Attending Unavailable STEPHANIE, BRUNILDA J Admitting Unavailable STEPHANIE, BRUNILDA J Consulting Unavailable JADE, MICHELLE A Consulting Unavailable JUAN F, CONNOR Admitting Unavailable JUAN F, CONNOR Attending Unavailable JUAN F, CONNOR Consulting Unavailable STEPHANIE, BRUNILDA J Admitting Unavailable STEPHANIE, BRUNILDA J Attending Unavailable STEPHANIE, BRUNILDA J Attending Unavailable STEPHANIE, BRUNILDA J Admitting Unavailable Sathish SPEECH COACH, Suze Unavailable Clinic, [facility] Primary Care Provider Un available [facility], [facility] Primary Care Pro vider Dr. Rob Padgett Attending Provider Dr. Gabriel Whyte Referring Provider Queden COVER REMOVER.SUPERVISOR FRUIT GRADING, Desire A Primary Care Provider Quemonty SPEECH COACH-C, Desire Primary Care Provider [phone] Dr. Radha Barreto DO Attending Provider Dr. Radha Barreto DO Emergency Provider Dr. Micky Keith DO Emergency Provider Dr. Micky Keith DO Attending Provider Dr. Rob Perdomo DO Emergency Provider Silvia HEDRICK, Dr. Linwood Whaley Admit Provider Dr. Linwood Vega MD Attending Provider [phone] Dr. Rob Perdomo DO Emergency Provider Silvia HEDRICK, Dr. Linwood Whaley Admit Provider Silvia HEDRICK, Dr. Linwood Whaley Attending Provider QUEDEN, DESIRE A Primary Care Unavailable QUEDEN, DESIRE A Referring Unavailable QUEDEN, DESIRE A Primary Care Unavailable SELF Referring Unavailable QUEDEN, DESIRE A Attending Unavailable QUEDEN, DESIRE A Primary Care Unavailable QUEDEN, DESIRE A Referring Unavailable QUEDEN, DESIRE A Primary Care Unavailable QUEDEN, DESIRE A Attending Unavailable QUEDEN, DESIRE A Referring Unavailable QUEDEN, DESIRE A Primary Care Unavailable QUEDEN, DESIRE A Referring Unavailable QUEDEN, DESIRE A Primary Care Unavailable EMILY PLUNKETT Attending Unavailable QUEDEN, DEISRE A Primary Care Unavailable PAVAN EMILY L Referring Unavailable QUEDEN, DESIRE A Primary Care Unavailable PAVAN EMILY L Referring Unavailable QUEDEN, DESIRE A Primary Care Unavailable QUEDEN, DESIRE A Primary Care Unavailable CLUTTER, SEAN Referring Unavailable QUEDEN, DESIRE A Primary Care Unavailable QUEDEN, DESIRE A Primary Care Unavailable PAVAN EMILY L Referring Unavailable QUEDEN, DESIRE A Primary Care Unavailable QUEDEN, DESIRE A Primary Care Unavailable CHARLIE PLEITEZICA Referring Unavailable QUEDEN, DESIRE A Primary Care Unavailable QUEDEN, DESIRE A Primary Care Unavailable FELA PLEITEZSSICA Referring Unavailable QUEDEN, DESIRE A Primary Care Unavailable SUZE PLEITEZ Attending Unavailable SELF Referring Unavailable QUEDEN, DESIRE A Primary Care Unavailable QUEDEN, DESIRE A Referring Unavailable QUEDEN, DESIRE A Primary Care Unavailable QUEDEN, DESIRE A Primary Care Unavailable QUEDEN, DESIRE A Primary Care Unavailable FELA PLEITEZSSICA Attending Unavailable PLEITEZ, SUZE Referring Unavailable QUEDEN, DESIRE A Primary Care Unavailable EMILY PLUNKETT Attending Unavailable QUEDEN, DESIRE A Primary Care Unavailable SELF Referring Unavailable QUEDEN, DESIRE A Primary Care Unavailable Amari Ashley Attending Unavailable Care Physician, No Primary Primary Care Unava ilable Queden SPEECH COACH, Desire Primary Care Unavailable Luis Phillips Attending Unavailable Sulema Gan Admitting Unavailable Sulema Gan Attending Unavailable Queden SPEECH COACH, Desire Primary Care Unavailable Darryl Cordoba Referring Unavailable Queden SPEECH COACH, Desire Primary Care Unavailable Linwood Vega Admitting Unavailable Linwood Vega Attending Unavailable Radha Barreto Attending Unavailable Queden SPEECH COACH, Desire Primary Care Unavailable Queden SPEECH COACH, Desire Primary Care Unavailable Radha Barreto Attending Unavailable Taya Dai Attending Unavail able Queden SPEECH COACH, Desire Primary Care Unavailable Queden SPEECH COACH, Desire Referring Unavailable Queden SPEECH COACH, Desire Primary Care Unavailable Jamaal Cespedes Attending Unavailable Sulema Gan Referring Unavailable Zac Gregory Attending Unavailable Queden SPEECH COACH, Desire Primary Care Unavailable Fiordaliza Lomax Attending Unavailable Queden SPEECH COACH, Desire Primary Care Unavailable Marcos Medina Referring Unavailable Micky Keith Attending Unavailable Queden SPEECH COACH, Desire Primary Care Unavailable Queden SPEECH COACH-C, Desire Primary Care Provider Leanne MCCALL, Dr. Rivas Emergency Provider Silvia HEDRICK, Dr. Linwood Whaley Admit Provider [phone] Silvia HEDRICK, Dr. Linwood Whaley Attending Provider Dami HEDRICK, Dr. Davis Attending Provider Carol HEDRICK, Dr. Rodríguez Referring Provider Jeffery MCCALL, Dr. Garcia Emergency Provider Allergies Allergy Classification Reported Allergen(s) Allergy Type Date of Onset Reaction(s) Facility Penicillins (antibiotic) (3 sources) Penicillins Drug Allergy 6 Swelling, GI Intolerance [facility] (20 sources) Penicillins; Translations: [Unknown] Propensity to adverse reactions to drug 6 Swelling, GI Intolerance [facility] Medications Current Medications Medication Drug Class(es) Dates Sig (Normalized) Sig (Original) acetaminophen 500 mg oral tablet (20 sources) Start: 12-02-2023 take 1 tablet by mouth every six hours as needed for pain Acetaminophen 500 mg tablet Active 500 mg PO EVERY 6 HOURS as needed for pain December 02, 2023 12:00am Start: 11-24-2023 End: 07-13-2024 take 1 tablet by mouth every eight hours as needed acetaminophen (TYLENOL EXTRA STRENGTH) 500 mg tablet Take 1 tablet by mouth every 8 hours as needed for pain. 90 tablet 1 07/14/2024 Active Start: 08-18-2022 End: 11-24-2023 take 1 tablet by mouth every six hours as needed acetaminophen (TYLENOL EXTRA STRENGTH) 500 mg tablet Take 1 tablet by mouth every 6 hours as needed for pain. 30 tablet 08/18/2022 11/24/2023 Discontinued Start: 12-06-2018 End: 12-06-2018 take 1 tablet by mouth every four hours as needed 650 mg, Oral, Every 4 hours PRN, mild pain, fever 100.4 F or greater, headaches, Starting Wed12/06/18 at 0126 End: 11-24-2023 take 1 tablet by mouth every six hours as needed acetaminophen (TYLENOL) 325 mg tablet Take 325 mg by mouth every 6 hours as needed. Take two tablets every 6 hours as needed for pain. 11/24/2023 Discontinued Comment on above: Take 325 mg by mouth every 6 hours as needed. Take two tablets every 6 hours as needed for pain. Take 1 tablet by tish th every 6 hours as needed for pain. acetaminophen 325 mg / HYDROcodone bitartrate 5 mg oral tablet (17 sources) Opioid Agonist Start: 05-07-2022 End: 10-23-2021 take 1 tablet by mouth every six hours as needed hydrocodone 5 mg-acetaminophen 325 mg tablet Take 1 tablet every 6 hours by oral route as needed. 05/07/2022 active Start: 04-29-2019 End: 04-29-2019 HYDROcodone-acetaminophen (N ORCO) 5-325 mg per tablet 2 tablet End: 01-30-2021 hydrocodone 5 mg-acetaminoph en 325 mg tablet 01/30/2021 completed acetaminophen 325 mg / oxyCODONE hydrochloride 5 mg oral tablet (5 sources) Opioid Agonist Start: 08-29-2024 take 1 tablet by mouth every six hours as needed for pain Oxycodone-Acetaminophen (Percocet) 5-325 mg tablet Active 1 {tbl} PO EVERY 6 HOURS as needed for pain 12 3 0 August 29, 2024 Urolithiasis Urinary calculus, unspecified Start: 05-12-2024 End: 05-30-2024 Oxycodone-Acetaminophen (Per cocet) 5-325 mg tablet Discontinued 1 {tbl} PO EVERY 6 HOURS as needed for pain 12 3 0 May 12, 2024 May 30, 2024 6:49pm Calculus of right kidney Calculus of kidney [id number] actuat albuterol 0.09 mg/actuat metered dose inhaler (20 sources) beta2-Adrenergic Agonist Start: 10-26-2023 take 2 puff(s) by inhalation every four hours as needed for wheezing albuterol HFA (PROVENTIL HFA, VENTOLIN HFA) 90 mcg/actuation inhaler Inhale 2 Puffs as instructed every 4 hours as needed for wheezing/shortness of breath. 8 g 10/26/2023 Active Start: 05-03-2023 End: 12-02-2023 Albuterol Sulfate (Ventolin Hfa) 90 mcg/actuation HFA aerosol inhaler Active 1 - 2 NMA INHALATION Q4H as needed for Wheezing December 02, 2023 12:00am please give spacer Start: 05-03-2023 take 1 puff(s) by in halation every four hours as needed Albuterol Sulfate (Ventolin Hfa) 90 mcg/actuation HFA aerosol inhaler Active 1 - 2 PUFF INHALATION EVERY 4 HOURS NEEDED May 03, 2023 1:00am please give spacer Start: 08-29-2018 take 2 puff(s) by in halation every four hours as needed for wheezing albuterol HFA (PROAIR HFA) 90 mcg/actuation inhaler Inhale 2 Puffs as instructed every 4 hours as needed for Wheezing/Shortness of Breath. 1 Inhaler 2 08/25/2019 Active Start: 08-29-2018 End: 12-06-2018 take 2 puff(s) by inhalation every four hours as needed for wheezing 2 puff, Inhalation, Every 4 hours PRN (RT), wheezing, shortness of breath, Starting Wed12/06/18 at 0137 SPACER REQUIRED FOR ADMINISTRATION Start: 07-18-2018 End: 12-02-2023 Albuterol Sulfate (Proventil Hfa) 6.7 GM HFA aerosol inhaler Discontinued 2 NMA INHALATION EVERY 4 HOURS NEEDED as needed for Sob &/Or Wheezing July 18, 2018 12:00am December 02, 2023 5:24pm Start: 07-18-2018 take 1 puff(s) by in halation every four hours as needed Albuterol Sulfate (Proventil Hfa) 6.7 GM HFA aerosol inhaler Active 2 PUFF INHALATION EVERY 4 HOURS NEEDED July 17, 2018 11:00pm Start: 07-18-2018 take 1 puff(s) by in halation every four hours as needed Albuterol Sulfate (Proventil Hfa) 6.7 GM HFA aerosol inhaler Active 2 PUFF INHALATION EVERY 4 HOURS NEEDED July 18, 2018 12:00am Start: 07-18-2018 take 1 puff(s) by in halation every four hours as needed Albuterol Sulfate (Proventil Hfa) 6.7 GM HFA aerosol inhaler Active 2 PUFF INHALATION EVERY 4 HOURS NEEDED July 18, 2018 12:00am End: 05-21-2020 albuterol sulfate 05/21/2020 completed Comment on above: Inhale 2 Puffs as in structed every 4 hours as needed for Wheezing/Shortness of Breath. albuterol 90 mcg/actuation inhaler (1 source) Start: 019 take 2 puff(s) by inhalation every four hours as needed albuterol 90 mcg/actuation inhaler Inhale 2 puffs every 4 (four) hours as needed . 0 08/29/2018 Active ARIPiprazole 5 mg oral tablet (20 sources) Atypical Antipsychotic Start: take 1 tablet by mouth once daily Aripiprazole 5 mg tablet Active 5 mg PO DAILY December 02, 2023 12:00am Start: 05-31-2022 End: 08-24-2023 take 1 tablet by mouth once daily ARIPiprazole (ABILIFY) 5 mg tablet Indications: PTSD (post-traumatic stress disorder) , Bipolar affective disorder, remission status unspecified (HCC) Take 1 tablet by mouth once daily. For 30 days 30 tablet 08/24/2023 Active End: 01-15-2022 take 1 tablet by mouth once daily aripiprazole 5 mg tablet TAKE 1 TABLET BY MOUTH ONCE DAILY active Comment on above: Take 5 mg by mouth o nce daily. For 30 days benzonatate 100 mg oral capsule (20 sources) Non-narcotic Antitussive Start: 08-16-2024 Benzonatate 100 mg capsule Active 100 mg PO 2 to 3 times per day as needed August 16, 2024 12:00am Start: 07-13-2024 take 1-2 tablets by mouth three times daily as needed for cough, then take 6 tablets by mouth every twenty-four hours as needed for cough benzonatate (TESSALON PERLE) 100 mg capsule Indications: cough Take one to two tablets by mouth up to three times a day as needed for cough. Do not take more than six in 24 hours 30 capsule 07/13/2024 Active Start: 10-26-2023 End: 11-24-2023 take 1 capsule by mouth every eight hours as needed benzonatate (TESSALON PERLE) 100 mg capsule Take 1 capsule by mouth three times a day as needed. 21 capsule 10/26/2023 11/24/2023 Discontinued Start: 01-04-2023 End: 12-02-2023 take 1 capsule by mouth three times daily as needed for cough Benzonatate 200 mg capsule Discontinued 200 mg PO THREE TIMES A DAY as needed for cough 20 0 January 04, 2023 1:00am December 02, 2023 5:24pm Start: 01-30-2022 End: 07-28-2022 take 1 capsule by mouth three times daily as needed benzonatate 100 mg capsule Take 1 capsule 3 times a day by oral route as needed. 01/30/2022 active Start: 01-15-2022 End: 12-09-2020 take 1 capsule by mouth three times daily as needed for cough benzonatate 200 mg capsule Take 1 capsule by mouth 3 times daily as needed for cough 01/15/2022 active End: 07-28-2022 take 1 capsule by mouth three times daily as needed for cough benzonatate 200 mg capsule TAKE 1 CAPSULE BY MOUTH THREE TIMES DAILY NEEDED FOR COUGH 07/28/2022 completed brompheniramine maleate 0.4 mg/ml / dextromethorphan hydrobromide 2 mg/ml / pseudoephedrine hydrochloride 6 mg/ml oral solution (1 source) alpha-Adrenergic Agonist, Uncompetitive H-kzpcap-W-aspartate Receptor Antagonist, Sigma-1 Agonist Start: 07-18-2018 take 1 mL by mouth every four hours as needed Txoimfhvogioivs-Esvkdmyaf-Mm (Bromfed Dm Cough Syrup) 118 ML syrup Active 10 ML PO EVERY 4 HOURS NEEDED July 18, 2018 12:00am dextromethorphan hydrobromide 3 mg/ml / promethazine hydrochloride 1.25 mg/ml oral solution (8 sources) Phenothiazine, Uncompetitive Y-edtfhs-C-aspartate Receptor Antagonist, Sigma-1 Agonist Start: 11-10-2021 take 5 mL by mouth every four to six hours as needed promethazine-DM 6.25 mg-15 mg/5 mL oral syrup Take 5 mL every 4-6 hours by oral route as needed for 5 days. 11/10/2021 active End: 01-15-2022 take 5 mL by mouth every four to six hours as needed promethazine-DM 6.25 mg-15 mg/5 mL oral syrup Take 5 mL every 4-6 hours by oral route as needed for 5 days. 01/15/2022 completed End: 10-23-2021 take 5 mL by mouth every four hours as needed promethazine-DM 6.25 mg-15 mg/5 mL oral syrup Take 5 mL every 4 hours by oral route as needed. 10/23/2021 completed diazePAM 5 mg oral tablet (1 source) Benzodiazepine Start: 11-15-2023 End: 11-16-2023 diazePAM (VALIUM) 5 mg tablet Indications: At high risk for pain from procedure , Abnormal uterine bleeding (AUB) Take 1 tablet by mouth once daily for 1 day. Take 30 minutes prior to procedure 1 tablet 11/15/2023 11/16/2023 Active [id number] 0.3 ml EPINEPHrine 1 mg/ml auto-injector (20 sources) alpha-Adrenergic Agonist, beta-Adrenergic Agonist, Catecholamine Start: 12-01-2023 EPINEPHrine (EPIP EN) 0.3 mg/0.3 mL auto-injector DIRECTED as needed for anaphylaxis 12/01/2023 Active Start: 12-01-2023 Epinephrine 0. 3 mg/0.3 mL auto-injector Active 0.3 mg IM DIRECTED as needed for anaphylaxis December 01, 2023 12:00am famotidine 20 mg oral tablet (4 sources) Histamine-2 Receptor Antagonist Start: 04-29-2019 End: 05-09-2019 take 1 tablet by mouth twice daily famotidine (PEPCID) 20 MG tablet Take 1 (one) tablet (20 mg total) by mouth 2 (two) times a day for 10 days . 20 tablet 0 04/29/2019 Active 24 hr ferrous sulfate 142 mg extended release oral tablet (20 sources) Start: 08-16-2024 take 1 tablet by mouth once daily Ferrous Sulfate 137 mg (45 mg iron) tablet extended release Active 137 mg PO daily August 16, 2024 12:00am Start: 08-25-2023 End: 11-24-2023 take 1 tablet by mouth twice daily ferrous sulfate 325 mg (65 mg iron) tablet Indications: Iron deficiency anemia, unspecified iron deficiency anemia type Take 1 tablet by mouth two times a day. 60 tablet 2 08/25/2023 11/24/2023 Discontinued End: 07-28-2022 take 1 tablet by mouth once daily ferrous sulfate 325 mg (65 mg iron) tablet TAKE 1 TABLET BY MOUTH ONCE DAILY FOR 30 DAYS 07/28/2022 completed not taking ferrous sulfate (SLOW FE) 137 mg (45 mg iron) TbER (20 sources) Start: 08-02-2024 take 1 tablet by mouth once daily ferrous sulfate (SLOW FE) 137 mg (45 mg iron) TbER Take 1 tablet by mouth once daily. 30 tablet 3 08/02/2024 Active Start: 11-17-2023 End: 08-02-2024 take 1 tablet by mouth once daily ferrous sulfate (SLOW FE) 137 mg (45 mg iron) TbER Take 1 tablet by mouth once daily. 30 tablet 3 11/17/2023 08/02/2024 Discontinued Start: 11-17-2023 [facility] ferrous sulfate (SLOW FE) 137 mg (45 mg iron) TbER Take 1 tablet by mouth once daily. 30 tablet 3 11/17/2023 Active FLUoxetine 20 mg oral capsule (20 sources) Serotonin Reuptake Inhibitor Start: 06-28-2018 End: 08-24-2023 take 1 capsule by mouth once daily Fluoxetine 20 MG capsule Active 20 mg PO DAILY July 18, 2018 12:00am depression Comment on above: Take 1 capsule by [facility] once daily. fluticasone propionate 0.05 mg/actuat metered dose nasal spray (20 sources) Corticosteroid Start: 05-30-2024 Fluticasone Propionate 50 mcg/actuation spray,suspension Active 2 NMA INTRANASAL DAILY May 30, 2024 12:00am Start: 12-11-2023 take 2 spray(s) by [facility] once daily fluticasone (FLONASE) 50 mcg/actuation nasal spray Indications: URI, acute Use 2 Sprays in each nostril once daily. Rinse mouth after use. 1 Each 04/27/2024 Active Start: 01-15-2022 Flonase Allerg y Relief 50 mcg/actuation nasal spray,suspension [place] 2 sprays every day by intranasal route at bedtime for 30 days. 01/15/2022 active Start: 11-10-2021 Flonase Allerg y Relief 50 mcg/actuation nasal spray,suspension [place] 1 spray every day by intranasal route as needed. 11/10/2021 active Start: 08-25-2019 take 1 spray(s) nasa l route once daily fluticasone (FLONASE) 50 mcg/actuation nasal spray Use 1 [place] in each nostril once daily. 1 Bottle 11 08/25/2019 Active Start: 12-06-2018 End: 12-06-2018 1 spray, Nasal, At bedtime, First dose on Wed12/06/18 at 0330 Start: 06-28-2018 End: 06-19-2021 fluticasone propionate (FLON ASE) 50 mcg/actuation nasal spray 1 spray by NOT APPLICABLE route every night at bedtime . 0 06/28/2018 Active Comment on above: Use 1 [place] in each nostril once daily. folic acid 1 mg oral tablet (16 sources) Start: 05-31-2022 take 1 tablet by mouth once daily folic acid 1 mg tablet Take 1 tablet every day by oral route for 90 days. 05/31/2022 active take 1 tablet by mouth once pennie y folic acid 1 mg tablet TAKE 1 TABLET BY MOUTH ONCE DAILY FOR 90 DAYS active Dulera 100 mcg-5 mcg/actuation HFA aerosol inhaler (20 sources) Corticosteroid, beta2-Adrenergic Agonist Start: 07-28-2022 take 2 puff(s) by mouth twice daily Dulera 100 mcg-5 mcg/actuation HFA aerosol inhaler INHALE 2 PUFFS BY MOUTH TWICE DAILY 07/28/2022 active Start: 06-19-2021 take 2 puff(s) by mo uth twice daily Dulera 100 mcg-5 mcg/actuation HFA aerosol inhaler INHALE 2 PUFFS BY MOUTH TWICE DAILY 06/19/2021 active Start: 08-25-2019 take 2 puff(s) by in halation twice daily mometasone-formoterol (DULERA) 100-5 mcg/actuation inhaler Inhale 2 Puffs as instructed twice daily. 1 Inhaler 11 08/25/2019 Active Start: 08-29-2018 take 2 puff(s) by in halation once daily mometasone-formoterol 100-5 mcg/actuation HFAA Inhale 2 puffs daily . 0 08/29/2018 Active take 2 puff(s) by mo uth twice daily Dulera 100 mcg-5 mcg/actuation HFA aerosol inhaler INHALE 2 PUFFS BY MOUTH TWICE DAILY active End: 05-21-2020 Dulera 05/21/2020 completed Comment on above: Inhale 2 Puffs as in structed twice daily. glipiZIDE er 10 mg 24 hr extended release oral tablet (20 sources) Sulfonylurea Start: 08-02-2024 take 1 tablet by mouth once daily glipiZIDE (GLUCOTROL XL) 10mg 24 hr tablet Indications: Type 2 diabetes mellitus without complication, without long-term current use of insulin (HCC) Take 1 tablet by mouth once daily. 30 tablet 5 08/02/2024 Active Start: 08-24-2023 End: 08-02-2024 take 1 tablet by mouth once daily Glipizide 5 mg tablet extended release 24hr Active 5 mg PO DAILY December 01, 2023 12:00am Start: 07-28-2022 take 1 tablet by tish th twice daily glipizide ER 5 mg tablet, extended release 24 hr Take 1 tablet twice a day by oral route for 30 days. 07/28/2022 active Start: 01-15-2022 take 1 tablet by tish th twice daily glipizide ER 5 mg tablet, extended release 24 hr Take 1 tablet twice a day by oral route for 30 days. 01/15/2022 active Start: 06-19-2021 End: 08-24-2023 take 1 tablet by mouth every twenty-four hours glipiZIDE (GLUCOTROL XL) 5 mg 24 hr tablet Take by mouth. 0 06/19/2021 08/24/2023 Discontinued (Adjust Sig - Block E-Cancel) Start: 06-19-2021 take 1 tablet by tish th once daily glipizide ER 5 mg tablet, extended release 24 hr Take 1 tablet every day by oral route for 30 days. 06/19/2021 active Comment on above: Take by mouth. ibuprofen 600 mg oral tablet (20 sources) Nonsteroidal Anti-inflammatory Drug Start: 11-17-2023 End: 07-13-2024 take 1 tablet by mouth every six hours as needed ibuprofen (MOTRIN) 600 mg tablet Take 1 tablet by mouth every 6 hours as needed for pain. FOR PAIN. 30 tablet 07/14/2024 Active Start: 09-07-2023 take 1 tablet by tish th three times daily as needed for pain Ibuprofen 800 mg tablet Active 800 mg PO THREE TIMES A DAY as needed for pain September 07, 2023 12:00am Start: 07-03-2023 End: 12-02-2023 take 1 tablet by mouth every eight hours as needed for pain Ibuprofen 800 mg tablet Discontinued 800 mg PO Q8H as needed for pain July 03, 2023 12:00am December 02, 2023 5:27pm Start: 07-28-2022 take 1 tablet by tish th three times daily as needed ibuprofen 800 mg tablet Take 1 tablet 3 times a day by oral route as needed for 30 days. 07/28/2022 active Start: 07-02-2021 take 1 tablet by tish th three times daily ibuprofen 800 mg tablet Take 1 tablet 3 times a day by oral route. 07/02/2021 active take 1 tablet by tish th every eight hours as needed for pain ibuprofen 800 mg tablet TAKE 1 TABLET BY MOUTH EVERY 8 HOURS NEEDED FOR PAIN active not taking 200 actuat ipratropium bromide 0.017 mg/actuat metered dose inhaler (20 sources) Anticholinergic Start: 07-28-2022 take 2 puff(s) by mouth every six hours Atrovent HFA 17 mcg/actuation aerosol inhaler INHALE 2 PUFFS BY MOUTH EVERY 6 HOURS 07/28/2022 active Start: 08-25-2019 take 2 puff(s) by in halation every six hours Ipratropium (ATROVENT) 17 mcg/actuation inhaler Inhale 2 Puffs as instructed every 6 hours. 1 Inhaler 11 08/25/2019 Active take 2 puff(s) by mo uth every six hours Atrovent HFA 17 mcg/actuation aerosol inhaler INHALE 2 PUFFS BY MOUTH EVERY 6 HOURS active Comment on above: Inhale 2 Puffs as in structed every 6 hours. lamoTRIgine 25 mg oral tablet (16 sources) Mood Stabilizer, Anti-epileptic Agent take 3-4 tablets by mouth once daily lamotrigine 25 mg tablet TAKE 3 TO 4 TABLETS BY MOUTH ONCE DAILY active End: 01-15-2022 take 3 tablets by mouth once daily lamotrigine 25 mg tablet TAKE 3 TABLETS BY MOUTH DAILY 01/15/2022 completed levoFLOXacin 750 mg oral tablet (1 source) Quinolone Antimicrobial Start: 08-29-2024 take 1 tablet by mouth once daily Levofloxacin 750 mg tablet Active 750 mg PO DAILY 7 7 0 August 29, 2024 12:00am lidocaine hydrochloride 20 mg/ml mucous membrane topical solution (16 sources) Antiarrhythmic, Amide Local Anesthetic Start: 11-10-2021 Lidocaine Viscous 2 % mucosal solution Gargle and spit 5 ml by mouth every 4-6 hours as needed for throat pain 11/10/2021 active End: 01-15-2022 Lidocaine Viscous 2 % mucosa l solution Gargle and spit 5 ml by mouth every 4-6 hours as needed for throat pain 01/15/2022 completed loratadine 10 mg oral tablet (20 sources) Start: 08-16-2024 take 1 tablet by mouth once daily Loratadine 10 mg tablet Active 10 mg PO daily August 16, 2024 12:00am Start: 07-13-2024 take 1 tablet by [facility] once daily loratadine (CLARITIN) 10 mg tablet Indications: Acute cough Take 1 tablet by mouth once daily. 30 tablet 2 07/13/2024 Active Start: 05-11-2019 End: 08-24-2023 take 1 capsule by mouth once daily loratadine 10 mg cap Take 1 capsule by mouth once daily. 30 capsule 5 05/11/2019 08/24/2023 Discontinued (Course of therapy completed) Start: 10-06-2018 End: 10-20-2019 take 1 tablet by mouth once daily loratadine 10 mg tablet Take 1 tablet every day by oral route for 30 days. 10/06/2018 10/20/2019 completed Comment on above: Take 1 capsule by mo [facility] once daily. losartan potassium 25 mg oral tablet (20 sources) Angiotensin 2 Receptor Duyen Start: 12-02-2023 take 1 tablet by mouth once daily Losartan 25 mg tablet Active 25 mg PO DAILY December 02, 2023 12:00am Start: 12-01-2023 End: 12-02-2023 take 1 tablet by mouth twice daily Losartan 50 mg tablet Discontinued 50 mg PO TWICE A DAY December 01, 2023 12:00am December 02, 2023 5:30pm Start: 07-28-2022 End: 08-24-2023 take 1 tablet by mouth once daily losartan (COZAAR) 25 mg tablet Indications: Hypertension, essential Take 1 tablet by mouth once daily. For 30 days 30 tablet 2 08/24/2023 Active take 1 tablet by tish th once daily losartan 25 mg tablet TAKE 1 TABLET BY MOUTH ONCE DAILY active Comment on above: Take 25 mg by mouth once daily. For 30 days metFORMIN hydrochloride 500 mg oral tablet (20 sources) Biguanide Start: take 2 tablets by mouth twice daily metformin 500 mg tablet Take 2 tablets twice a day by oral route as directed for 30 days. 07/28/2022 active Start: 05-25-2022 take 1 tablet by tish th twice daily Metformin 500 mg tablet Active 500 mg PO TWICE A DAY May 25, 2022 12:00am take 2 tablets by mo uth twice daily metformin 500 mg tablet TAKE 2 TABLETS BY MOUTH TWICE DAILY DIRECTED FOR 30 DAYS active Comment on above: Take 500 mg by mouth twice daily. methocarbamol 500 mg oral tablet (1 source) Muscle Relaxant Start : 03-22 End: 04-01 take 1 tablet by mouth three times daily methocarbamol (ROBAXIN) 500 mg tablet Indications: Lumbar back pain Take 1 tablet by mouth three times a day for 10 days. 30 tablet 03/22/2024 04/01/2024 Active methylPREDNISolone (7 sources) Corticosteroid Start : 07-13 methylPREDNISolone (MEDROL, KEVIN,) 4 mg Dose-Pack Indications: Acute cough As Instructed per package 21 tablet 07/13/2024 Active Mometasone-Formoterol (Dulera) 100-5 mcg/actuation HFA aerosol inhaler (1 source) Start : 08-16 Mometasone-Formoterol (Dulera) 100-5 mcg/actuation HFA aerosol inhaler Active 2 NMA INHALATION TWICE A DAY August 16, 2024 12:00am naproxen 500 mg oral tablet (17 sources) Nonsteroidal Anti-inflammatory Drug Start : 10-10 End: 10-24 take 1 tablet by mouth twice daily at mealtime naproxen (NAPROSYN) 500 mg tablet Take 1 tablet by mouth twice daily with meals for 14 days. Take with food. 28 tablet 0 10/10/2022 10/24/2022 Active End: 11-13-2020 take 1 tablet by mouth twice daily as needed naproxen sodium 275 mg tablet TAKE 1 TABLET BY MOUTH TWICE DAILY NEEDED 11/13/2020 completed Comment on above: Take 1 tablet by [facility] twice daily with meals for 14 days. Take with food. nitrofurantoin, macrocrystals 25 mg / nitrofurantoin, monohydrate 75 mg oral capsule (19 sources) Nitrofuran Antibacterial Start: 10-30-19 End: 11-04-19 take 1 capsule by mouth twice daily nitrofurantoin monohydrate and macrocrystal (MACROBID) 100 mg capsule Take 1 capsule by mouth twice daily for 5 days. 10 capsule 0 10/29/2022 11/03/2022 Active End: 08-28-2021 take 1 capsule by mouth every twelve hours nitrofurantoin monohydrate/macrocrystals 100 mg capsule Take 1 capsule every 12 hours by oral route for 7 days. 08/28/2021 completed Comment on above: Take 1 capsule by [facility] twice daily for 5 days. norethindrone acetate 5 mg oral tablet (20 sources) Start: 08-16-2024 Norethindrone Acetate 5 mg tablet Active 5 mg PO 1 to 2 times per day as needed August 16, 2024 12:00am Start: 11-24-2023 End: 05-30-2024 take 1 tablet by mouth twice daily as needed Norethindrone Acetate 5 mg tablet Discontinued 5 mg PO TWICE A DAY as needed for vag bleeding December 01, 2023 12:00am May 30, 2024 6:48pm Start: 11-17-2023 End: 11-24-2023 norethindrone (AYGESTIN) 5 m g tablet Take 1 tablet by mouth as directed. one tablet daily or BID as needed to slow vaginal bleeding 35 tablet 11/24/2023 Active Start: 10-18-2018 End: 08-24-2023 take 1 tablet by mouth once daily Norethindrone, Contraceptive, (ORTHO MICRONOR) 0.35 mg tablet Indications: Encounter for BCP ( control pills) initial prescription Take 1 tablet by mouth once daily. 3 Package 4 05/11/2019 08/24/2023 Discontinued (Course of therapy completed) Comment on above: Take 1 tablet by tish once daily. nystatin 100 unt/mg topical powder (18 sources) Polyene Antifungal Start: 11-30-2020 End: 11-30-2021 nystatin (MYCOSTATIN) powder Apply topically 2 (two) times a day . 15 g 0 11/30/2020 11/30/2021 Active End: 02-20-2021 Nystop 100,000 unit/gram top ical powder APPLY POWDER TOPICALLY TWICE DAILY 02/20/2021 completed omeprazole 40 mg delayed release oral capsule (20 sources) Proton Pump Inhibitor Start: 08-16-2024 take 1 capsule by mouth once daily Omeprazole 40 mg capsule,delayed release(DR/EC) Active 40 mg PO daily August 16, 2024 12:00am Start: 06-19-2021 omeprazole (MA ILOSEC) 40 mg capsule Take by mouth. 06/19/2021 Active Start: 09-23-2018 End: 08-24-2023 take 1 capsule by mouth once daily before breakfast omeprazole (PRILOSEC) 20 mg capsule Indications: Gastroesophageal reflux disease, esophagitis presence not specified Take 1 capsule by mouth daily before breakfast. 1/2 hr before meal. 30 capsule 11 09/23/2018 08/24/2023 Discontinued Comment on above: Take 1 capsule by mo [facility] daily before breakfast. 1/2 hr before meal. ondansetron 4 mg disintegrating oral tablet (20 sources) Serotonin-3 Receptor Antagonist Start: take 1 tablet by mouth every eight hours as needed for nausea Ondansetron 4 mg tablet,disintegrati ng Active 4 mg PO EVERY 8 HOURS NEEDED as needed for Nausea 10 August 29, 2024 12:00am Start: 05-12-2024 End: 05-30-2024 take 1 tablet by mouth three times daily as needed for nausea and vomiting Ondansetron 4 mg tablet,disintegrating Discontinued 4 mg PO THREE TIMES A DAY as needed for nausea and vomiting May 12, 2024 4:10am May 30, 2024 6:49pm Start: 11-05-2022 End: 12-01-2023 take 1 tablet by mouth every eight hours as needed for nausea and vomiting Ondansetron Hcl 8 mg tablet Discontinued 8 mg PO Q8H as needed for nausea and vomiting November 053 12:00am December 01, 2023 5:46am Start: 08-24-2022 End: 12-01-2023 take 1 tablet by mouth every eight hours as needed for nausea Ondansetron 4 mg tablet,disintegrating Discontinued 4 mg PO EVERY 8 HOURS NEEDED as needed for Nausea 10 0 July 16, 2023 12:00am December 01, 2023 5:46am Start: 04-29-2019 End: 05-04-2019 take 1 tablet by mouth every six hours as needed for nausea ondansetron (Zofran) 4 MG tablet Take 1 (one) tablet (4 mg total) by mouth every 6 (six) hours as needed for nausea . 20 tablet 0 04/29/2019 Active Start: 02-20-2019 End: 10-20-2019 take 2 tablets by mouth twice daily Zofran 4 mg tablet Take 2 tablets twice a day by oral route. 02/20/2019 10/20/2019 completed Start: 01-25-2019 End: 10-20-2019 ondansetron 4 mg disintegrat ing tablet Dissolve 1 or 2 tablets in your mouth every 6 hours as needed for nausea. 01/25/2019 10/20/2019 completed oseltamivir 75 mg oral capsule (1 source) Neuraminidase Inhibitor Start: 04-29-2019 End: 05-04-2019 take 1 capsule by mouth twice daily oseltamivir (TAMIFLU) 75 MG capsule Take 1 (one) capsule (75 mg total) by mouth 2 (two) times a day for 5 days . 10 capsule 0 04/29/2019 05/04/2019 Active 24 hr oxybutynin chloride 5 mg extended release oral tablet (20 sources) Cholinergic Muscarinic Antagonist Start: 12-02-2023 take 1 tablet by mouth once daily Oxybutynin Chloride 5 mg tablet extended release 24hr Active 5 mg PO DAILY December 02, 2023 12:00am Pnv,Calcium 58-Pdpv-Gscrh Acid (Westab Plus) 27 mg iron- 1 mg tablet (1 source) Start: 08-16-2024 Pnv,Calcium 00-Tkqc-Ljoec Acid (Westab Plus) 27 mg iron- 1 mg tablet Active 1 {tbl} PO DAILY August 16, 2024 12:00am Obefbphd-Eb-Dml-Fe -FA tab (20 sources) Start: 11-24-2023 take 1 tablet by mouth once daily Edylbqtu-Qm-Lfu-F e-FA tab Take 1 tablet by mouth once daily. 30 tablet 1 11/24/2023 Active simvastatin 80 mg oral tablet (20 sources) HMG-CoA Reductase Inhibitor Start: 08-25-2023 End: 01-24-2024 take 1 tablet by mouth at bedtime Simvastatin 80 mg tablet Active 80 mg PO AT BEDTIME December 02, 2023 12:00am Start: 05-31-2022 End: 08-25-2023 take 1 tablet by mouth once daily simvastatin 40 mg tablet Take 1 tablet every day by oral route for 90 days. 05/31/2022 active Start: 12-06-2018 End: 12-06-2018 take 20 mg by mouth once daily 20 mg, Oral, Nightly, F irst dose on Wed12/06/18 at 0230 Start: 06-28-2018 End: 12-02-2023 take 1 tablet by mouth at bedtime Simvastatin 20 tablet Discontinued 20 mg PO AT BEDTIME June 28, 2018 12:00am December 02, 2023 5:31pm cholesterol End: 05-21-2020 simvastatin 05/21/2020 compl eted Comment on above: Take 1 tablet by tish th daily at bedtime. tamsulosin hydrochloride 0.4 mg oral capsule (5 sources) alpha-Adrenergic Duyen Start: take 1 capsule by mouth once daily Tamsulosin (Flomax) 0.4 mg capsule Active 0.4 mg PO DAILY August 29, 2024 12:00am Start: 05-12-2024 End: 05-30-2024 take 1 capsule by mouth once daily Tamsulosin (Flomax) 0.4 mg capsule Discontinued 0.4 mg PO DAILY May 12, 2024 12:00am May 30, 2024 6:49pm traZODone hydrochloride 50 mg oral tablet (20 sources) Serotonin Reuptake Inhibitor take 1 tablet by mouth at bedtime trazodone 100 mg tablet TAKE 1 TABLET BY MOUTH AT BEDTIME active End: 06-19-2021 take 1 tablet by mouth at bedtime as needed trazodone 50 mg tablet TAKE 1 TABLET BY MOUTH AT BEDTIME NEEDED active Completed/Discontinued Medications Medication Drug Class(es) Dates Sig (Normalized) Sig (Original) albuterol 0.833 mg/ml / ipratropium bromide 0.167 mg/ml inhalant solution (1 source) Anticholinergic, beta2-Adrenergic Agonist Start: 04-29-2019 End: 04-29-2019 ipratropium-albute roL (DUO-NEB) 0.5-2.5 mg/3 ml nebulizer solution 3 mL aspirin 81 mg delayed release oral tablet (1 source) Platelet Aggregation Inhibitor, Nonsteroidal Anti-inflammatory Drug Start: 12-06-2018 End: 12-06-2018 take 81 mg by mouth once daily 81 mg, Oral, Daily, First dose on Wed12/06/18 at 0900 DO NOT CRUSH OR CHEW. atropine sulfate 0.025 mg / diphenoxylate hydrochloride 2.5 mg oral tablet (11 sources) Anticholinergic, Cholinergic Muscarinic Antagonist, Antidiarrheal End: 01-15-2022 take 1 tablet by mouth four times daily as needed diphenoxylate-atro pine 2.5 mg-0.025 mg tablet Take 2 tablets 4 times a day by oral route as needed. 01/15/2022 completed not taking azithromycin 250 mg oral tablet (17 sources) Macrolide Antimicrobial Start: 10-06-2018 End: 01-25-2019 take 2 tablets by mouth once daily, then take 1 tablet by mouth once daily azithromycin 250 mg tablet TAKE 2 TABLETS (500 MG) BY ORAL ROUTE ONCE DAILY FOR 1 DAY THEN 1 TABLET (250 MG) BY ORAL ROUTE ONCE DAILY FOR 4 DAYS 10/06/2018 01/25/2019 completed Start: 07-18-2018 take 250 mg by mouth once daily Azithromycin Active 250 MG PO DAILY July 18, 2018 12:00am Budesonide-Formoterol (9 sources) Corticosteroid, beta2-Adrenergic Agonist Start: 01-04-2023 End: 08-16-2024 Budesonide-Formoterol (Symbicort) 80-4.5 mcg/actuation HFA aerosol inhaler Discontinued 2 NMA INHALATION TWICE A DAY 10.2 0 January 04, 2023 1:00am August 16, 2024 6:47pm Start: 01-04-2023 Budesonide-For moterol (Symbicort) 80-4.5 mcg/actuation HFA aerosol inhaler Active 2 NMA INHALATION TWICE A DAY 10.2 January 04, 2023 1:00am Start: 01-04-2023 take 1 puff(s) by in halation twice daily Budesonide-Formoterol (Symbicort) 80-4.5 mcg/actuation HFA aerosol inhaler Active 2 PUFF INHALATION TWICE A DAY 10.2 January 04, 2023 1:00am Start: 01-04-2023 take 1 puff(s) by in halation twice daily Budesonide-Formoterol (Symbicort) 80-4.5 mcg/actuation HFA aerosol inhaler Active 2 PUFF INHALATION TWICE A DAY 10.2 January 04, 2023 12:00am Start: 12-06-2018 End: 12-06-2018 take 2 puff(s) by inhalation twice daily 2 puff, Inhalation, 2 times daily (RT), First dose on Wed12/06/18 at 0900 cefdinir 300 mg oral capsule (20 sources) Cephalosporin Antibacterial Start: 12-01-2023 End: 04-28-2024 take 1 capsule by mouth every twelve hours Cefdinir 300 mg capsule Discontinued 300 mg PO Q12H 14 0 December 01, 2023 12:00am April 28, 2024 1:43pm End: 11-27-2020 take 1 capsule by mouth twice daily at mealtime cefdinir 300 mg capsule Take 1 capsule by mouth twice daily with food until gone 11/27/2020 completed cephalexin 500 mg oral capsule (8 sources) Cephalosporin Antibacterial Start: 05-12-2024 End: 05-30-2024 take 1 capsule by mouth three times daily Cephalexin 500 mg capsule Discontinued 500 mg PO THREE TIMES A DAY 21 7 0 May 12, 2024 12:00am May 30, 2024 6:47pm Start: 07-16-2023 End: 12-01-2023 take 1 capsule by mouth every twelve hours Cephalexin 500 mg capsule Discontinued 500 mg PO EVERY 12 HOURS 14 0 July 16, 2023 12:00am December 01, 2023 5:45am ciprofloxacin 500 mg oral tablet (2 sources) Quinolone Antimicrobial Start: 05-31-2024 End: 08-16-2024 take 1 tablet by mouth twice daily Ciprofloxacin Hcl (Cipro) 500 mg tablet Discontinued 500 mg PO TWICE A DAY 10 0 May 31, 2024 12:00am August 16, 2024 6:47pm clindamycin 300 mg oral capsule (16 sources) Lincosamide Antibacterial End: 03-13-2021 take 2 capsules by mouth twice daily clindamycin HCl 300 mg capsule TAKE 2 CAPSULES BY MOUTH TWICE DAILY FOR 10 DAYS 03/13/2021 completed cyclobenzaprine hydrochloride 5 mg oral tablet (20 sources) Muscle Relaxant Start: 12-12-2022 End: 08-24-2023 take 1 tablet by mouth every twelve hours as needed for muscle spasms and muscle spasms cyclobenzaprine (FLEXERIL) 5 mg tablet Indications: Muscle spasm of right leg Take 1 tablet by mouth two times a day as needed for muscle spasm. 6 tablet 0 12/12/2022 08/24/2023 Discontinued (Other) Start: 10-10-2022 End: 12-12-2022 cyclobenzaprine (FLEXERIL) 1 0 mg tablet Take 1/2 - 1 tablet every 8 hours as needed 15 tablet 0 10/10/2022 12/12/2022 Discontinued Start: 08-18-2022 End: 10-10-2022 take 1 tablet by mouth every twelve hours as needed cyclobenzaprine (FLEXERIL) 10 mg tablet Take 1 tablet by mouth twice daily as needed for muscle spasm. 10 tablet 0 08/18/2022 10/10/2022 Discontinued (Course of therapy completed) Start: 12-06-2018 End: 10-10-2022 take 1 tablet by mouth three times daily as needed cyclobenzaprine (FLEXERIL) 5 mg tablet Indications: Shoulder impingement syndrome, right Take 1 tablet by mouth three times daily as needed. 30 tablet 2 05/11/2019 10/10/2022 Discontinued (Course of therapy completed) Start: 10-12-2018 End: 01-15-2022 take 1 tablet by mouth three times daily as needed cyclobenzaprine 10 mg tablet Take 1 tablet 3 times a day by oral route as needed. 09/02/2021 active Comment on above: Take 5 mg by mouth t hree times daily as needed. Take 1 tablet by tish th three times daily as needed. Take 1/2 - 1 tablet every 8 hours as needed Take 1 tablet by tish th twice daily as needed for muscle spasm. Take 1 tablet by tish th two times a day as needed for muscle spasm. diclofenac sodium 50 mg delayed release oral tablet (16 sources) Nonsteroidal Anti-inflammatory Drug End: 1 take 1 tablet by mouth twice daily as needed diclofenac sodium 50 mg tablet,delayed release TAKE 1 TABLET BY MOUTH TWICE DAILY NEEDED 02/20/2021 completed docusate sodium 100 mg oral capsule (16 sources) End: 2 take 1 capsule by mouth once daily Stool Softener 100 mg capsule TAKE 1 CAPSULE BY MOUTH ONCE DAILY 10/23/2021 completed doxycycline monohydrate 100 mg oral capsule (20 sources) Tetracycline-class Drug Start: 5 End: 5 take 1 capsule by mouth twice daily Doxycycline Monohydrate 100 mg capsule Discontinued 100 mg PO TWICE A DAY 14 April 28, 2024 1:00am May 12, 2024 1:58am Start: 03-22-2024 End: 04-01-2024 take 1 tablet by mouth twice daily doxycycline (VIBRA-TABS) 100 mg tablet Indications: Cellulitis of face Take 1 tablet by mouth two times a day for 10 days. 20 tablet 03/22/2024 04/01/2024 Active End: 05-21-2020 take 1 capsule by mouth twice daily doxycycline hyclate 100 mg capsule Take 1 capsule twice a day by oral route for 10 days. 05/21/2020 completed End: 02-20-2021 take 1 tablet by mouth twice daily doxycycline hyclate 100 mg tablet TAKE 1 TABLET BY MOUTH TWICE DAILY FOR 10 DAYS 02/20/2021 completed 0.4 ml enoxaparin sodium 100 mg/ml prefilled syringe (1 source) Low Molecular Weight Heparin Start: 12-06-2018 End: 12-06-2018 enoxaparin (LOVENOX) syringe 40 mg Ferrous Sulfate (Ferrous Sulfate 325 Mg (65 Mg Iron) Tablet) 325 mg (65 mg iron) tablet (4 sources) Start: 12-01-2023 End: 04-28-2024 Ferrous Sulfate (Ferrous Sulfate 325 Mg (65 Mg Iron) Tablet) 325 mg (65 mg iron) tablet Discontinued 325 mg PO TWICE A DAY December 01, 2023 12:00am April 28, 2024 1:43pm flu vacc [id number] 6mos up(PF) (FLUZONE QUAD/FLULAVAL QUAD/FLUARIX QUAD) syringe 0.5 mL (1 source) Start: 12-06-2018 End: 12-06-2018 inject 0.5 mL by intramuscular injection every twenty-four hours as needed flu vacc [id number] 6mos up(PF) (FLUZONE QUAD/FLULAVAL QUAD/FLUARIX QUAD) syringe 0.5 mL fluconazole 150 mg oral tablet (11 sources) Azole Antifungal End: 08-28-2021 fluconazole 150 mg tablet Take 1 tablet every other day as needed. 08/28/2021 completed furosemide 20 mg oral tablet (8 sources) Loop Diuretic Start: 02-10-2023 End: 12-01-2023 take 1 tablet by mouth once daily Furosemide (Lasix) 20 mg tablet Discontinued 20 mg PO DAILY 5 February 10, 2023 1:00am December 01, 2023 5:46am 12 hr guaiFENesin 600 mg / pseudoephedrine hydrochloride 60 mg extended release oral tablet (20 sources) alpha-Adrenergi c Agonist Start: 09-04-2021 End: 11-10-2021 take 1 tablet by mouth every twelve hours as needed pseudoephedrine-g uaifenesin ER 60 mg-600 mg tablet,extend release 12hr Take 1 tablet every 12 hours by oral route as needed for 10 days. 09/04/2021 11/10/2021 completed Start: 02-20-2021 End: 03-13-2021 take 1 tablet by mouth every twelve hours as needed Mucinex D Maximum Strength 120 mg-1,200 mg tablet,extended release Take 1 tablet every 12 hours by oral route as needed. 02/20/2021 03/13/2021 completed hydrOXYzine hydrochloride 50 mg oral tablet (16 sources) Antihistamine End: 03-13-2021 take 1 tablet by mouth four times daily as needed hydroxyzine HCl 50 mg tablet Take 1 tablet 4 times a day by oral route as needed for 15 days. 03/13/2021 completed 10 ml iron sucrose 20 mg/ml injection (1 source) Parenteral Iron Replacement Start: 01-12-2024 End: 01-12-2024 200 mg, INTRAVENOUS, ONCE, 1 dose, On Wed01/12/24 at 1330, May administer up to 200 mg via IV push over 5-10 minutes. Please conduct a 30 minute post-dose observation. ketoconazole 20 mg/ml topical cream (16 sources) Azole Antifungal End: 06-19-2021 ketoconazole 2 % topical cream APPLY CREAM TOPICALLY TO AFFECTED AREA(S) ONCE DAILY 06/19/2021 completed ketorolac tromethamine 10 mg oral tablet (6 sources) Nonsteroidal Anti-inflammatory Drug, Cyclooxygenase Inhibitor Start: 05-12-2024 End: 05-30-2024 take 1 tablet by mouth four times daily as needed for pain Ketorolac 10 mg tablet Discontinued 10 mg PO 4 TIMES DAILY as needed for pain 20 5 0 May 12, 2024 4:11am May 30, 2024 6:48pm Start: 11-17-2023 End: 11-17-2023 keTORolac 30 mg injection (T oradol) Start: 11-17-2023 End: 11-17-2023 30 mg, INTRAMUSCULAR, ONCE, 1 dose, On Wed11/17/23 at 1530, Ketorolac (Toradol) is indicated for the short-term (up to 5 days) management of moderately severe acute pain. Continuation of ketorolac (Toradol) beyond 5 days increases the risk of developing serious adverse events. Please verify the duration of therapy for ketorolac (Toradol), If ordered PRN for pain, patient/guardian may elect to receive this medication for higher pain levels INSTEAD of the opioid, if preferred: Yes meclizine hydrochloride 25 mg oral tablet (20 sources) Antiemetic Start: 12-12-2022 End: 11-24-2023 take 1 tablet by mouth twice daily as needed for dizziness meclizine (ANTIVERT) 25 mg tab Indications: Vertigo Take 1 tablet by mouth two times a day as needed (dizziness). 12 tablet 12/12/2022 11/24/2023 Discontinued Start: 02-11-2021 End: 06-19-2021 meclizine (ANTIVERT) 25 MG c hewable tablet Chew and Swallow 1 (one) tablet (25 mg total) 3 (three) times a day as needed for dizziness . 20 tablet 0 02/11/2021 Active Comment on above: Take 1 tablet by tish th two times a day as needed (dizziness). melatonin 5 mg oral capsule (20 sources) Start: 12-06-2018 End: 12-06-2018 take 5 mg by mouth once daily 5 mg, Oral, Nightly, First dose on Wed12/06/18 at 0230 Start: 11-24-2018 End: 08-24-2023 take 1 capsule by mouth once daily at bedtime Melatonin 5 mg cap Take 1 capsule by mouth daily at bedtime. 30 capsule 5 05/11/2019 08/24/2023 Discontinued (Course of therapy completed) End: 05-21-2020 melatonin 05/21/2020 complet ed Comment on above: Take 1 capsule by mo [facility] daily at bedtime. meloxicam 15 mg oral tablet (20 sources) Nonsteroidal Anti-inflammatory Drug Start: 08-25-19 End: 08-24-19 24 take 1 tablet by mouth once daily at mealtime meloxicam (MOBIC) 15 mg tablet Indications: Shoulder impingement syndrome, right Take 1 tablet by mouth once daily. Take with food. 30 tablet 2 08/25/2019 08/24/2023 Discontinued (Course of therapy completed) Comment on above: [facility]. miSOPROStol 0.2 mg oral tablet (20 sources) Prostaglandin E1 Analog Start: 10-25-19 End: 11-24-19 miSOPROStol (CYTOTEC) 200 mcg tablet Take 1 tablet by mouth as directed. Insert one tablet vaginally the night before procedure. Take one tablet orally the morning of procedure. 2 tablet 10/25/2023 11/24/2023 Discontinued Start: 09-23-2018 End: 10-10-2022 miSOPROStol (CYTOTEC) 200 mc g tablet Indications: Encounter for IUD insertion Insert 2 tables vaginally night prior to procedure and 2 tablets morning of procedure. 4 tablet 0 09/23/2018 10/10/2022 Discontinued (Course of therapy completed) End: 05-21-2020 misoprostol 05/21/2020 compl eted Comment on above: Insert 2 tables vagi marcellus night prior to procedure and 2 tablets morning of procedure. Mometasone (1 source) Corticosteroid End: 12-07-19 19 mometasone 100 mcg/actuation HFAA Inhale 1 puff . 0 12/06/2018 Discontinued mupirocin 0.02 mg/mg topical ointment (16 sources) RNA Synthetase Inhibitor Antibacterial End: 05-22-19 21 mupirocin 2 % topical ointment APPLY SMALL AMOUNT TOPICALLY TO AFFECTED AREA(S) 3 TIMES DAILY 05/21/2020 completed oxyCODONE hydrochloride 5 mg oral tablet (2 sources) Opioid Agonist Start: 06-01-19 End: 08-17-19 take 1 tablet by mouth every six hours as needed for pain Oxycodone 5 mg tablet Discontinued 5 mg PO EVERY 6 HOURS as needed for pain 14 7 0 May 31, 2024 August 16,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 [facility] Address: [address] [place] [address] Performed By: #### 5 7021-8 ####[facility] [place] LABCLIA [id number] [place] [address] [place] Nucleated RBC (Bld) [#/Vol] Normal [facility] Comment on above: Order Comment: Speci men Type: BLOOD SPECIMENOrdering Facility: [facility] Address: [address] [place] [address] Performed By: #### 5 7021-8 ####[facility] [place] LABCLIA [id number] [place] [address] [place] Nucleated RBC/100 WBC (Bld) [Ratio] Normal [facility] Comment on above: Order Comment: Speci men Type: BLOOD SPECIMENOrdering Facility: [facility] Address: [address] [place] [address] Performed By: #### 5 7021-8 ####[facility] [place] LABCLIA [id number] [place] [address] [place] Platelet mean volume (Bld) [Entitic vol] 9.6 fL Normal 9.0-12.7 [facility] Comment on above: Order Comment: Speci men Type: BLOOD SPECIMENOrdering Facility: [facility] Address: [address] [place] [address] Performed By: #### 5 7021-8 ####[facility] [place] LABCLIA [id number] [place] [address] [place] [facility] Platelets (Bld) [#/Vol] 343 10*3/uL Normal 150-400 [facility] Comment on above: Order Comment: Speci men Type: BLOOD SPECIMENOrdering Facility: [facility] Address: [address] [place] [address] Performed By: #### 5 7021-8 ####[facility] [place] LABCLIA [id number] [place] [address] [facility] RBC (Bld) [#/Vol] 4.47 10*6/uL Normal 3.90-5.20 [facility] Comment on above: Order Comment: Speci men Type: BLOOD SPECIMENOrdering Facility: [facility] Address: [address] [place] [address] Performed By: #### 5 7021-8 ####[facility] [place] LABCLIA [id number] [place] [address] [facility] WBC (Bld) [#/Vol] 9.38 10*3/uL Normal 3.70-11.00 [facility] Comment on above: Order Comment: Speci men Type: BLOOD SPECIMENOrdering Facility: [facility] Address: [address] [place] [address] Performed By: #### 5 7021-8 ####[facility] [place] LABCLIA [id number] [place] [address] [facility] Comprehensive metabolic 2000 panelon 07-28-2024 Albumin [Mass/Vol] 3.9 g/dL Normal 3.9-4.9 [facility] Comment on above: Order Comment: Speci men Type: BLOOD SPECIMENOrdering Facility: [facility] Address: [address] [place] [address] Performed By: #### 2 4323-8, TSHRF, 87683-5 ####[facility] [place] LABCLIA [id number] [place] [address] [facility] ALP [Catalytic activity/Vol] 92 U/L Normal 34-123 [facility] Comment on above: Order Comment: Speci men Type: BLOOD SPECIMENOrdering Facility: [facility] Address: [address] [place] [address] Performed By: #### 2 4323-8, [facility], 44732-4 ####[facility] [place] LABCLIA [id number] [facility] [place] [address] [place] ALT With P-5'-P [Catalytic activity/Vol] 11 U/L Normal 7-38 [facility] Comment on above: Order Comment: Speci men Type: BLOOD SPECIMENOrdering Facility: [facility] Address: [address] [place] [address] Performed By: #### 2 4323-8, [facility], 94804-3 ####[facility] [place] LABCLIA [id number] [place] [address] [place] Anion gap [Moles/Vol] 12 mmol/L Normal 8-15 [facility] Comment on above: Order Comment: Speci men Type: BLOOD SPECIMENOrdering Facility: [facility] Address: [address] [place] [address] Performed By: #### 2 4323-8, [facility], 63124-0 ####[facility] [place] LABCLIA [id number] [place] [address] [place] AST With P-5'-P [Catalytic activity/Vol] 11 U/L Low 13-35 [facility] Comment on above: Order Comment: Speci men Type: BLOOD SPECIMENOrdering Facility: [facility] Address: [address] [place] [address] Performed By: #### 2 4323-8, [facility], 57087-2 ####[facility] [place] LABCLIA [id number] [place] [address] [place] Bilirubin [Mass/Vol] 0.2 mg/dL Normal 0.2-1.3 [facility] Comment on above: Order Comment: Speci men Type: BLOOD SPECIMENOrdering Facility: [facility] Address: [address] [place] [address] Performed By: #### 2 4323-8, TSHRF, 13443-9 ####[facility] [place] LABCLIA [id number] [place] [address] [place] Calcium [Mass/Vol] 9.4 mg/dL Normal 8.5-10.2 [facility] Comment on above: Order Comment: Speci men Type: BLOOD SPECIMENOrdering Facility: [facility] Address: [address] [place] [address] Performed By: #### 2 4323-8, TSHRF, 06108-5 ####[facility] [place] LABCLIA [id number] [place] [address] [place] Chloride [Moles/Vol] 103 mmol/L Normal 98-107 [facility] Comment on above: Order Comment: Speci men Type: BLOOD SPECIMENOrdering Facility: [facility] Address: [address] [place] [address] Performed By: #### 2 4323-8, TSHRF, 96364-2 ####[facility] [place] LABCLIA [id number] [place] [address] [place] CO2 [Moles/Vol] 25 mmol/L Normal 22-30 [facility] Comment on above: Order Comment: Speci men Type: BLOOD SPECIMENOrdering Facility: [facility] Address: [address] [place], [place] [address] Performed By: #### 2 4323-8, TSHRF, 40820-5 ####[facility] [place] LABCLIA [id number] [place] [address] [place] Creatinine [Mass/Vol] 0.75 mg/dL Normal 0.58-0.96 [facility] Comment on above: Order Comment: Speci men Type: BLOOD SPECIMENOrdering Facility: [facility] Address: [address] [place] [id number] Performed By: #### 2 4323-8, TSHRF, 49101-3 ####[facility] [place] LABCLIA [id number] [place] [address] [place] Creatinine and Glomerular filtration rate.predicted panel (S/P/Bld) 96 mL/min/1.73m??? Normal >=60 [facility] Comment on above: Order Comment: Leonelkingston griffin Type: BLOOD SPECIMENOrdering Facility: [facility] Address: [address] [place] [address] Result Comment: Rosa Maria mated Glomerular Filtration Rate (eGFR) is calculated using the 2020 CKD-EPI creatinine equation. This equation utilizes serum creatinine, sex, and age as parameters. The creatinine assay has traceable calibration to isotope dilution-mass spectrometry. Refer to KDIGO guidelines for clinical interpretation. In patients with unstable renal function, e.g. those with acute kidney injury, the eGFR may not accurately reflect actual GFR. Performed By: #### 2 4323-8, [facility], 57868-9 ####[facility] LABCLIA [id number] [place] [id number] [place] Glucose [Mass/Vol] 137 mg/dL High 74-99 [facility] Comment on above: Order Comment: Oliva griffin Type: BLOOD SPECIMENOrdering Facility: [facility] Address: [address] [place] [address] Result Comment: The [place] Diabetes Association (ADA) provides guidance for cutoff values for fasting glucose and random glucose. The ADA defines fasting as no caloric intake for at least 8 hours. Fasting plasma glucose results between 100 to 125 mg/dL indicate increased risk for diabetes (prediabetes). Fasting plasma glucose results greater than or equal to 126 mg/dL meet the criteria for diagnosis of diabetes. In the absence of unequivocal hyperglycemia, results should be confirmed by repeat testing. In a patient with classic symptoms of hyperglycemia or hyperglycemic crisis, random plasma glucose results greater than or equal to 200 mg/dL meet the criteria for diagnosis of diabetes. Reference: Standards of Medical Care in Diabetes 2016, [place] Diabetes Association. Diabetes Care. 2016.39(Suppl 1). Performed By: #### 2 4323-8, [facility], 34349-0 ####[facility] LABCLIA [id number] [place] [address] [place] Potassium [Moles/Vol] 4.0 mmol/L Normal 3.7-5.1 [facility] Comment on above: Order Comment: Speci men Type: BLOOD SPECIMENOrdering Facility: [facility] Address: [address] [place] [address] Performed By: #### 2 4323-8, TSH, 73672-5 ####[facility] [place] LABCLIA [id number] [place] [address] [place] Protein [Mass/Vol] 7.5 g/dL Normal 6.3-8.0 [facility] Comment on above: Order Comment: Speci men Type: BLOOD SPECIMENOrdering Facility: [facility] Address: [address] [place] [address] Performed By: #### 2 4323-8, [facility], 19262-7 ####[facility] [place] LABCLIA [id number] [facility] [place] [address] [place] Sodium [Moles/Vol] 140 mmol/L Normal 136-144 [facility] Comment on above: Order Comment: Speci men Type: BLOOD SPECIMENOrdering Facility: [facility] Address: [address] [place] [address] Performed By: #### 2 4323-8, [facility], 26265-4 ####[facility] [place] LABCLIA [id number] [facility] [place] [address] [place] Urea nitrogen [Mass/Vol] 14 mg/dL Normal 7-21 [facility] Comment on above: Order Comment: Speci men Type: BLOOD SPECIMENOrdering Facility: [facility] Address: [address] [place] [address] Performed By: #### 2 4323-8, [facility], 28123-1 ####[facility] [place] LABCLIA [id number] [facility] [place] [address] [place] HbA1c (Bld)on 07-28-2024 Average glucose Estimated from glycated hemoglobin (Bld) [Mass/Vol] 151 mg/dL Normal [facility] Comment on above: Order Comment: Speci men Type: BLOOD SPECIMEN Ordering [facility] Address: [address] [place] [address] Result Comment: eAG: (Estimated average glucose) is a calculated value from HgbA1c and is insurance verification representative of the average blood glucose level in the last 2-3 month period. Performed By: #### 5 5454-3 #### [facility] CLIA [id number] [address] [place] [address] [place] HbA1c (Bld) [Mass fraction] 6.9 % High 4.3-5.6 [facility] Comment on above: Order Comment: Oliva griffin Type: BLOOD SPECIMEN [facility] Address: [address] [place] [address] Result Comment: Amer [place] Diabetes Association guidelines indicate that patients with HgbA1c in the range 5.7-6.4% are at increased risk for development of diabetes, and intervention by lifestyle modification may be beneficial. HgbA1c greater or equal to 6.5% is considered diagnostic of diabetes. Performed By: #### 5 5454-3 #### [facility] CLIA [id number] [address] [place] [address] [place] Lipid 1996 panelon 5 Cholesterol [Mass/Vol] 197 mg/dL Normal <200 [facility] Comment on above: Order Comment: Oliva griffin Type: BLOOD SPECIMENOrdering Facility: [facility] Address: [address] [place] [address] Result Comment: <200 mg/dL, Desirable 200-239 mg/dL, Borderline high >239 mg/dL, High Performed By: #### 2 4323-8, TSHRF, 70674-3 ####[facility] LABCLIA [id number] [place] [address] [place] Cholesterol in HDL [Mass/Vol] 36 mg/dL Low >39 [facility] Comment on above: Order Comment: Oliva griffin Type: BLOOD SPECIMENOrdering Facility: [facility] Address: [address] [place] [address] Result Comment: 40-5 9 mg/dL, Acceptable >59 mg/dL, High: Negative risk factor for coronary heart disease <40 mg/dL, Low: Positive risk factor for coronary heart disease Performed By: #### 2 4323-8, [facility], 81814-8 ####[facility] LABCLIA [id number] [place] [address] [place] [facility] Cholesterol in LDL [Mass/Vol] 123 mg/dL High <100 [facility] Comment on above: Order Comment: Speci men Type: BLOOD SPECIMENOrdering Facility: [facility] Address: [address] [place] [address] Result Comment: <100 mg/dL, Optimal 100-129 mg/dL, Near optimal/above optimal 130-159 mg/dL, Borderline high 160-189 mg/dL, High >189 mg/dL, Very high Secondary prevention optimal LDL Cholesterol levels are recommended to be <70 mg/dL LDL cholesterol is calculated using the Cortes-NIH equation. Performed By: #### 2 4323-8, [facility], 92824-0 ####[facility] LABIA [id number] [place] [address] [facility] Cholesterol in LDL/Cholesterol in HDL [Mass ratio] 3.42 {ratio} High <2.54 [facility] Comment on above: Order Comment: Leoneli men Type: BLOOD SPECIMENOrdering Facility: [facility] Address: [address] [place] [address] Result Comment: Refe rence: 1. National Cholesterol Education Program ATP III Guideline At-A-Glance Quick Desk Reference: National Heart, Lung, and Blood [place]. National Institutes of Health. 2001: NIH Publication No. 01-3305. 2. An International Atherosclerosis Society position paper: global recommendations for the management of dyslipidemia: executive summary, Atherosclerosis. 2014: 232(2):410-413. Performed By: #### 2 4323-8, [facility], 99809-9 ####[facility] LABCLIA [id number] [place] [address] [place] Cholesterol in VLDL [Mass/Vol] 38 mg/dL High <30 [facility] Comment on above: Order Comment: Speci men Type: BLOOD SPECIMENOrdering Facility: [facility] Address: [address] [place] [address] Performed By: #### 2 4323-8, [facility], 50848-1 ####[facility] [place] LABCLIA [id number] [facility] [place] [address] [place] Cholesterol non HDL [Mass/Vol] 161 mg/dL High <130 [facility] Comment on above: Order Comment: Speci men Type: BLOOD SPECIMENOrdering Facility: [facility] Address: [address] [place] [address] Result Comment: <130 mg/dL, Optimal 130-159 mg/dL, Near optimal/above optimal 160-189 mg/dL, Borderline high 190-219 mg/dL, High >219 mg/dL, Very high Secondary prevention optimal non HDL Cholesterol levels are recommended to be <100 mg/dL Performed By: #### 2 4323-8, [facility], 32800-6 ####[facility] [place] LABCLIA [id number] [place] [address] [facility] Cholesterol.total/Angela sterol in HDL [Mass ratio] 5.47 {ratio} High <5.10 [facility] Comment on above: Order Comment: Speci men Type: BLOOD SPECIMENOrdering Facility: [facility] Address: [address] [place] [address] Performed By: #### 2 4323-8, [facility], 20985-6 ####[facility] [place] LABCLIA [id number] [facility] [place] [address] [place] FASTING TIME [address] [facility] Comment on above: Order Comment: Speci men Type: BLOOD SPECIMENOrdering Facility: [facility] Address: [address] [place] [address] Performed By: #### 2 4323-8, [facility], 54982-9 ####[facility] [place] LABCLIA [id number] [place] [address] [facility] Triglyceride [Mass/Vol] 216 mg/dL High <150 [facility] Comment on above: Order Comment: Speci men Type: BLOOD SPECIMENOrdering Facility: [facility] Address: [address] [place] [address] Result Comment: <150 mg/dL, Normal 150-199 mg/dL, Borderline high 200-499 mg/dL, High >499 mg/dL, Very high Performed By: #### 2 4323-8, TSHRF, 65547-4 ####[facility] LAB[facility] [id number] [place] [address] [facility] TSH W/REFLEX FT4on 5 TSH Qn 3.640 m[IU]/L Normal 0.270-4.[address] [facility] Comment on above: Order Comment: Speci men Type: BLOOD SPECIMENOrdering Facility: [facility] Address: [address] [place], [place] [address] Performed By: #### 2 4323-8, [facility], 79930-0 ####[facility] LABCLIA [id number] [place] [address] [facility] CBC W/Diff, Automatedon 06-30 PATH REV Reviewed Normal [facility] Comment on above: Result Comment: SEE REPORT IN PATIENT'S EMR AMENDED REPORT 07/20/24 1610 PATH REV previously reported as: June Performed By: #### L 100.0100, L500.2500 #### [facility] [address] [place], [address] COVID & INFLUENZA A/B & RSV PCR, ROUTINEon 07-14-2024 FLUAV RNA ARISTIDES+probe Ql (Unsp spec) Not detected Not Detected [facility] FLUBV RNA ARISTIDES+probe Ql (Unsp spec) Not detected Not Detected [facility] Interpretation and review of laboratory results Normal [facility] RSV A RNA ARISTIDES+probe Ql (Unsp spec) Not detected Not Detected [facility] SARS-CoV-2 (COVID-19) RNA ARISTIDES+probe Ql (Unsp spec) Not detected See comment [facility] Reference Range (the expected result in uninfected individuals): Not detected [facility] CNOVon 07-13-2024 CNOV Office Visit (RAMEZ PATRICIO) -- LAKEISHA TOPETE ([id number]) 1970 F Date Time Provider Department 07/13/24 9:20 AM DESIRE LANIER During your visit today, we recorded the following information about you: Temperature Pulse Respiration Blood pressure 97.8 degrees 76/minute 16/minute 124/76 Weight Height 91.6 kg 1.473 m Desire Lanier, CHERIE.[facility] 07/18/2024 8:32 AM Signed CHIEF COMPLAINT: Lakeisha is a 54-year-old female presenting with acute onset of allergic symptoms, nausea, and emesis, accompanied by multiple complaints including chest pain, dyspnea, and palpitations. I reviewed past medical, surgical, social, and family histories today and updated chart. Allergies, chronic medications, and supplements were also reviewed. Recording using [employer] software for draft documentation of the visit was discussed with the patient/authorized insurance verification representative; all questions welcomed and answered. Patient/authorized insurance verification representative agreed to proceed Allergic Symptoms: - Onset of symptoms approximately one week ago. - Reports nasal drainage, sneezing, coughing, and otalgia. - Denies current use of allergy medications. Nausea and Emesis: - Onset of symptoms approximately one week ago. - Emesis occurring nightly around midnight. - Denies known etiology. Chest Pain, Dyspnea, and Palpitations: - Reports frequent chest pain and dyspnea, particularly nocturnally. - Experiences palpitations. - Recent syncopal episode at work approximately two weeks ago, resulting in hospitalization at [facility]. - Family history of cardiac issues in father Edema: - Reports edema in the right foot, described as a lot of water in it. - Denies similar symptoms in the left foot. Weight Gain: - Noted weight gain since last visit in July. - Diet primarily consists of [employer] meals due to fixed income. - Engages in regular physical activity, including walking and standing at work. Vertigo: - History of vertigo, questioning if symptoms have recurred. PAST MEDICAL HISTORY Diagnosis Date Allergic rhinitis, cause unspecified Depression 09/26/2010 Diabetes mellitus (HCC) Morbid obesity (HCC) 07/24/2011 Other combinations of endocrine dysfunction Sprain of neck Unspecified asthma(493.90) PAST SURGICAL HISTORY Procedure Laterality Date ENDOMETRIAL BIOPSY 11/17/2023 HYSTEROSCOPY, DIAGNOSTIC (SEPARATE 12/03/2023 DANDC, Myomectomy LAPAROSCOPIC APPENDECTOMY 09/20/2009 LAPS SURG CHOLECYSTECTOMY W/CHOLANGIOGRAPHY IOC - non draining LIG/TRNSXJ FLP TUBE ABDL/VAG APPR UNI/BI Tubal ligation TONSILLECTOMY PRIMARY/SECONDARY Tonsillectomy Social History Tobacco Use Smoking status: Never Smokeless tobacco: Never Tobacco comments: VAPE Vaping Use Vaping status: Some Days Substances: CBD Substance Use Topics Alcohol use: Not Currently Drug use: Never ALLERGIES Allergen Reactions Penicillins Family History Problem Relation Age of Onset Cancer Mother breast cancer Diabetes Mother COPD Father Coronary Artery Disease Father of [place] Breast Cancer Sister Heart Brother No Known Problems Maternal Grandmother No Known Problems Maternal Grandfather No Known Problems Paternal Grandmother No Known Problems Paternal Grandfather No Known Problems Daughter No Known Problems Daughter No Known Problems Daughter No Known Problems Daughter Adopted No Known Problems Son No Known Problems Son Current Outpatient Medications Medication Sig Dispense Refill glipiZIDE (GLUCOTROL XL) 5 mg 24 hr tablet Take 1 tablet by mouth once daily. 90 tablet 1 simvastatin (ZOCOR) 80 mg tablet Take 1 tablet by mouth once daily. 90 tablet 1 EPINEPHrine (EPIPEN) 0.3 mg/0.3 mL auto-injector DIRECTED as needed for anaphylaxis TRUE METRIX GLUCOSE TEST STRIP test strip USE TO TEST BLOOD GLUCOSE 3 TIMES DAILY. oxybutynin XL (DITROPAN XL) 5 mg 24 hr tablet once daily. Whlhlzid-Fj-Buj-Fe-FA tab Take 1 tablet by mouth once daily. 30 tablet 1 ferrous sulfate (SLOW FE) 137 mg (45 mg iron) TbER Take 1 tablet by mouth once daily. 30 tablet 3 albuterol HFA (PROVENTIL HFA, VENTOLIN HFA) 90 mcg/actuation inhaler Inhale 2 Puffs as instructed every 4 hours as needed for wheezing/shortness of breath. 8 g 0 omeprazole (PRILOSEC) 40 mg capsule Take by mouth. ARIPiprazole (ABILIFY) 5 mg tablet Take 1 tablet by mouth once daily. For 30 days 30 tablet 0 FLUoxetine (PROZAC) 20 mg capsule Take 1 capsule by mouth once daily. 30 capsule 12 losartan (COZAAR) 25 mg tablet Take 1 tablet by mouth once daily. For 30 days 30 tablet 2 metFORMIN (GLUCOPHAGE) 500 mg tablet Take 500 mg by mouth twice daily. Ipratropium (ATROVENT) 17 mcg/actuation inhaler Inhale 2 Puffs as instructed every 6 hours. 1 Inhaler 11 fluticasone (FLONASE) 50 mcg/actuation nasal spray Use 1 [place] in each nostril (more content not included)... Normal [facility] Basic Metabolic Profile (BMP )on 06-02-2024 BUN Normal 4-19 [facility] Comment on above: Result Comment: Canc elled via OM: Order cancelled - Patient discharged Performed By: #### L 100.0100, L500.2500 ####[facility] [address] [facility] [address] BUN/CRE Normal 10-20 [facility] Comment on above: Result Comment: Canc elled via OM: Order cancelled - Patient discharged Performed By: #### L 100.0100, L500.2500 ####[facility] [address] [facility] [address] Calcium Normal 7.6-11.0 [facility] Comment on above: Result Comment: Canc elled via OM: Order cancelled - Patient discharged Performed By: #### L 100.0100, L500.2500 ####[facility] [address] [place], [address] CL Normal 98-108 [facility] Comment on above: Result Comment: Canc elled via OM: Order cancelled - Patient discharged Performed By: #### L 100.0100, L500.2500 ####[facility] [address] [place], [address] CO2 Normal 21.0-32.0 [facility] Comment on above: Result Comment: Canc elled via OM: Order cancelled - Patient discharged Performed By: #### L 100.0100, L500.2500 ####[facility] [address] [place], [address] CREAT,SERUM Normal 0.70-1.20 [facility] Comment on above: Result Comment: Canc elled via OM: Order cancelled - Patient discharged Performed By: #### L 100.0100, L500.2500 ####[facility] [address] [place], [address] eGFR Normal >60 [facility] Comment on above: Result Comment: Canc elled via OM: Order cancelled - Patient discharged Performed By: #### L 100.0100, L500.2500 ####[facility] [address] [place], [address] GAP Normal 5-15 [facility] Comment on above: Result Comment: Canc elled via OM: Order cancelled - Patient discharged Performed By: #### L 100.0100, L500.2500 ####[facility] [address] [place], [address] GLU Normal 70-99 [facility] Comment on above: Result Comment: Canc elled via OM: Order cancelled - Patient discharged Performed By: #### L 100.0100, L500.2500 ####[facility] [address] [place], [address] Potassium Normal 3.3-5.1 [facility] Comment on above: Result Comment: Canc elled via OM: Order cancelled - Patient discharged Performed By: #### L 100.0100, L500.2500 ####[facility] [address] [place], [address] Basic Metabolic Profile (BMP) Normal 133-145 [facility] Comment on above: Result Comment: Canc elled via OM: Order cancelled - Patient discharged Performed By: #### L 100.0100, L500.2500 ####[facility] [address] [place], [address] CBC W/Diff, Automatedon 04-0 Absolute Neut Normal 2.0-7.7 [facility] Comment on above: Result Comment: Canc elled via OM: Order cancelled - Patient discharged Performed By: #### L 100.0100, L500.2500 ####[facility] [address] [place], [address] HCT Normal 37-47 [facility] Comment on above: Result Comment: Canc elled via OM: Order cancelled - Patient discharged Performed By: #### L 100.0100, L500.2500 ####[facility] [address] [place], [address] HGB Normal 12.0-15.0 [facility] Comment on above: Result Comment: Canc elled via OM: Order cancelled - Patient discharged Performed By: #### L 100.0100, L500.2500 ####[facility] [address] [place], [address] MCH Normal 27.0-32.0 [facility] Comment on above: Result Comment: Canc elled via OM: Order cancelled - Patient discharged Performed By: #### L 100.0100, L500.2500 ####[facility] [address] [place], [address] MCHC Normal 32-36 [facility] Comment on above: Result Comment: Canc elled via OM: Order cancelled - Patient discharged Performed By: #### L 100.0100, L500.2500 ####[facility] [address] [place], [address] MCV Normal 81-99 [facility] Comment on above: Result Comment: Canc elled via OM: Order cancelled - Patient discharged Performed By: #### L 100.0100, L500.2500 ####[facility] [address] [place], [address] NEUT% Normal 47-70 [facility] Comment on above: Result Comment: Canc elled via OM: Order cancelled - Patient discharged Performed By: #### L 100.0100, L500.2500 ####[facility] [address] [place], [address] PLT Normal 150-450 [facility] Comment on above: Result Comment: Canc elled via OM: Order cancelled - Patient discharged Performed By: #### L 100.0100, L500.2500 ####[facility] [address] [place], [address] RBC Normal 4.2-5.4 [facility] Comment on above: Result Comment: Canc elled via OM: Order cancelled - Patient discharged Performed By: #### L 100.0100, L500.2500 ####[facility] [address] [place], [address] RDW CV Normal 11.6-14.6 [facility] Comment on above: Result Comment: Canc elled via OM: Order cancelled - Patient discharged Performed By: #### L 100.0100, L500.2500 ####[facility] [address] [place], [address] RDW SD Normal 35.1-43.9 [facility] Comment on above: Result Comment: Canc elled via OM: Order cancelled - Patient discharged Performed By: #### L 100.0100, L500.2500 ####[facility] [address] [place], [address] WBC Normal 4.4-11.0 [facility] Comment on above: Result Comment: Canc elled via OM: Order cancelled - Patient discharged Performed By: #### L 100.0100, L500.2500 ####[facility] [address] [place], [address] Basic Metabolic Profile (BMP )on 06-01-2024 BUN Normal 4-19 [facility] Comment on above: Result Comment: Canc elled via OM: Order cancelled - Patient discharged Performed By: #### L 100.0100, L500.2500 #### [facility] Laboratory [address] [place], [address] BUN/CRE Normal 10-20 [facility] Comment on above: Result Comment: Canc elled via OM: Order cancelled - Patient discharged Performed By: #### L 100.0100, L500.2500 #### [facility] Laboratory [address] [place], [address] Calcium Normal 7.6-11.0 [facility] Comment on above: Result Comment: Canc elled via OM: Order cancelled - Patient discharged Performed By: #### L 100.0100, L500.2500 #### [facility] Laboratory [address] [place], [address] CL Normal 98-108 [facility] Comment on above: Result Comment: Canc elled via OM: Order cancelled - Patient discharged Performed By: #### L 100.0100, L500.2500 #### [facility] Laboratory [address] [place], [address] CO2 Normal 21.0-32.0 [facility] Comment on above: Result Comment: Canc elled via OM: Order cancelled - Patient discharged Performed By: #### L 100.0100, L500.2500 #### [facility] Laboratory [address] [place], [address] CREAT,SERUM Normal 0.70-1.20 [facility] Comment on above: Result Comment: Canc elled via OM: Order cancelled - Patient discharged Performed By: #### L 100.0100, L500.2500 #### [facility] Laboratory [address] [place], [address] eGFR Normal >60 [facility] Comment on above: Result Comment: Canc elled via OM: Order cancelled - Patient discharged Performed By: #### L 100.0100, L500.2500 #### [facility] Laboratory [address] [place], [address] GAP Normal 5-15 [facility] Comment on above: Result Comment: Canc elled via OM: Order cancelled - Patient discharged Performed By: #### L 100.0100, L500.2500 #### [facility] Laboratory [address] [place], [address] GLU Normal 70-99 [facility] Comment on above: Result Comment: Canc elled via OM: Order cancelled - Patient discharged Performed By: #### L 100.0100, L500.2500 #### [facility] Laboratory [address] [place], [address] Potassium Normal 3.3-5.1 [facility] Comment on above: Result Comment: Canc elled via OM: Order cancelled - Patient discharged Performed By: #### L 100.0100, L500.2500 #### [facility] Laboratory [address] [place], [address] Basic Metabolic Profile (BMP) Normal 133-145 [facility] Comment on above: Result Comment: Canc elled via OM: Order cancelled - Patient discharged Performed By: #### L 100.0100, L500.2500 #### [facility] Laboratory [address] [place], [address] CBC W/Diff, Automatedon 04-0 -2024 Absolute Neut Normal 2.0-7.7 [facility] Comment on above: Result Comment: Canc elled via OM: Order cancelled - Patient discharged Performed By: #### L 100.0100, L500.2500 #### [facility] Laboratory [address] [place], [address] HCT Normal 37-47 [facility] Comment on above: Result Comment: Canc elled via OM: Order cancelled - Patient discharged Performed By: #### L 100.0100, L500.2500 #### [facility] Laboratory [address] [place], [address] HGB Normal 12.0-15.0 [facility] Comment on above: Result Comment: Canc elled via OM: Order cancelled - Patient discharged Performed By: #### L 100.0100, L500.2500 #### [facility] Laboratory [address] [place], [address] MCH Normal 27.0-32.0 [facility] Comment on above: Result Comment: Canc elled via OM: Order cancelled - Patient discharged Performed By: #### L 100.0100, L500.2500 #### [facility] Laboratory [address] [place], [address] MCHC Normal 32-36 [facility] Comment on above: Result Comment: Canc elled via OM: Order cancelled - Patient discharged Performed By: #### L 100.0100, L500.2500 #### [facility] Laboratory [address] [place], [address] MCV Normal 81-99 [facility] Comment on above: Result Comment: Canc elled via OM: Order cancelled - Patient discharged Performed By: #### L 100.0100, L500.2500 #### [facility] Laboratory [address] [place], [address] NEUT% Normal 47-70 [facility] Comment on above: Result Comment: Canc elled via OM: Order cancelled - Patient discharged Performed By: #### L 100.0100, L500.2500 #### [facility] Laboratory [address] [place], [address] PLT Normal 150-450 [facility] Comment on above: Result Comment: Canc elled via OM: Order cancelled - Patient discharged Performed By: #### L 100.0100, L500.2500 #### [facility] Laboratory [address] [place], [address] RBC Normal 4.2-5.4 [facility] Comment on above: Result Comment: Canc elled via OM: Order cancelled - Patient discharged Performed By: #### L 100.0100, L500.2500 #### [facility] Laboratory [address] [place], [address] RDW CV Normal 11.6-14.6 [facility] Comment on above: Result Comment: Canc elled via OM: Order cancelled - Patient discharged Performed By: #### L 100.0100, L500.2500 #### [facility] Laboratory [address] [place], [address] RDW SD Normal 35.1-43.9 [facility] Comment on above: Result Comment: Canc elled via OM: Order cancelled - Patient discharged Performed By: #### L 100.0100, L500.2500 #### [facility] Laboratory [address] [place], [address] WBC Normal 4.4-11.0 [facility] Comment on above: Result Comment: Canc elled via OM: Order cancelled - Patient discharged Performed By: #### L 100.0100, L500.2500 #### [facility] Laboratory [address] [place], [address] Urine Cultureon 06-01-2024 URC Klebsiella pneumonia e sp pneum [place] Count 80,000-100,000 Klebsiella pneumoniae sp pneum: REACTION Ampicillin Islt GREGORIA >=32 Ampicillin+Sulbac Islt GREGORIA 4 S Cefepime Islt GREG[place]IA <=0.12 S cefTRIAXone Islt GREG[place]IA <=0.25 S Ciprofloxacin Islt GREG[place]IA 0.12 S B-Lactamase Extended Susc Islt NEG Gentamicin Islt GREG[place] <=1 S levoFLOXacin Islt GREG[place]IA <=0.12 S Meropenem Islt GREG[place]IA <=0.25 S Nitrofurantoin Islt G[place] 32 S Pip+Tazo Islt GREG[place]IA 8 S TMP SMX Islt GREG[place]IA <=20 S Normal [facility] Comment on above: Performed By: #### M 100.8615 ####[facility] [address] [place], [address] 12 Lead EKGon 05-31-2024 12 Lead EKG [facility] [address] [place] [address] 12 Lead EKG 05/30/24 2330 MR#: [id number] Acct: [id number] Name: LAKEISHA TOPETE Rep #: [id number] : 1970 53 From: Fiordaliza Lomax MD Attending Dr: Dr. Linwood Vgea MD Status: ADM SUSANA Ordering Dr: Marcos Medina MD Date: 05/31/24 Location[place] [facility] [place] Sex: F C Admitted: 05/30/24 Test Reason : PRE-OP Blood Pressure : */* mmHG Vent. Rate : 88 BPM Atrial Rate : 88 BPM P-R Int : 140 ms QRS Dur : 96 ms QT Int : 380 ms P-R-T Axes : 43 7 73 degrees QTcB Int : 459 ms Normal sinus rhythm Minimal voltage criteria for LVH, may be normal variant ( R in aVL ) Possible Lateral infarct , age undetermined Inferior infarct (cited on or before 18-Jul-2018) Abnormal ECG Confirmed by Fiordaliza Lomax ([id number]), material expeditor AYE DIAZ ([id number]) on 05/31/2024 7:57:52 AM Referred By: CAROL Confirmed By: Fiordaliza Lomax 05/31/24 0757 Date Fiordaliza Lomax MD CC: CHRISSY Lanier; Dr. Marcos Medina MD; Dr. Linwood Vega MD Signed Normal [facility] Absolute lymphocyte countOrd ered By: Linwood Vega on 05-31-2024 Lymphocytes Auto (Unsp spec) [#/Vol] 3.03 10*3/uL 0.83-4.51 [facility] Absolute neutrophil countOrd ered By: Linwood Vega on 05-31-2024 Neutrophils (Bld) [#/Vol] 10.2 10*3/uL High 2.0-7.7 [facility] Anion gap in Serum or Plasma Ordered By: Linwood Vega on 05-31-2024 Anion gap [Moles/Vol] 13 mmol/L 5-15 [facility] Automated lymphocyte count a s percentage of total leukocytesOrdered By: Linwood Vega on 05-31-2024 Lymphocytes/100 WBC Auto (Unsp spec) 19.7 % - [facility] BUN/creatinine ratioOrdered By: Linwood Vega on 05-31-2024 Urea nitrogen/Creatinine [Mass ratio] 16.9 mg/mg - [facility] Basic Metabolic Profile (BMP )on 05-31-2024 BUN/CRE 16.9 RATIO Normal - [facility] Comment on above: Performed By: #### L 100.0100, L500.2500 #### [facility] Laboratory [address] [place], [address] Calcium [Mass/Vol] 8.3 mg/dL Normal 7.6-11.0 [facility] Comment on above: Performed By: #### L 100.0100, L500.2500 #### [facility] Laboratory [address] [place], [address] Chloride [Moles/Vol] 104 mmol/L Normal 98-108 [facility] Comment on above: Performed By: #### L 100.0100, L500.2500 #### [facility] Laboratory [address] [place], [address] CO2 [Moles/Vol] 21.3 mmol/L Normal 21.0-32.0 [facility] Comment on above: Performed By: #### L 100.0100, L500.2500 #### [facility] Laboratory [address] [place], [address] Creatinine [Mass/Vol] 0.82 mg/dL Normal 0.70-1.20 [facility] Comment on above: Performed By: #### L 100.0100, L500.2500 #### [facility] Laboratory [address] [place], [address] ECRCL 80.94 ml/min Normal 50-250 [facility] Comment on above: Performed By: #### L 100.0100, L500.2500 #### [facility] Laboratory [address] [place], [address] GAP 13 Normal 5-15 [facility] Comment on above: Performed By: #### L 100.0100, L500.2500 #### [facility] Laboratory [address] [place], [address] GFR/1.73 sq M.predicted among non-blacks MDRD (S/P/Bld) [Vol rate/Area] 87 mL/min/{1.73_m2} Normal >60 [facility] Comment on above: Result Comment: mL/m in/1.73m2 CKD-EPI Creatinine Equation (2020) Performed By: #### L 100.0100, L500.2500 #### [facility] Laboratory [address] [place], [address] Glucose [Mass/Vol] 76 mg/dL Normal 70-99 [facility] Comment on above: Performed By: #### L 100.0100, L500.2500 #### [facility] [facility] [address] [place], [address] Potassium [Moles/Vol] 3.1 mmol/L Low 3.3-5.1 [facility] Comment on above: Performed By: #### L 100.0100, L500.2500 #### [facility] [address] [place], [address] Sodium [Moles/Vol] 138 mmol/L Normal 133-145 [facility] Comment on above: Performed By: #### L 100.0100, L500.2500 #### [facility] [address] [place], [address] Urea nitrogen [Mass/Vol] 14 mg/dL Normal 4-19 [facility] Comment on above: Performed By: #### L 100.0100, L500.2500 #### [facility] Laboratory [address] [place], [address] Basophil percentageOrdered B y: Linwood Vega on 05-31-2024 Basophils/100 WBC (Bld) 0.4 % 0-1 [facility] CBC W/Diff, Automatedon 04-0 PLT EST ADEQUATE Normal ADEQ [facility] Comment on above: Performed By: #### L 100.0100, L500.2500 ####[facility] [id number] [facility] [place], [address] Carbon dioxide, total [Moles /volume] in Central venous bloodOrdered By: Linwood Vega on 05-31-2024 CO2 [Moles/Vol] 21.3 mmol/L 21.0-32.0 [facility] Chloride assayOrdered By: Marleni Vega on 05-31-2024 Chloride [Moles/Vol] 104 mmol/L 98-108 [facility] Electrocardiogram reportOrde red By: Fiordaliza Lomax on 05-31-2024 EKG study [facility] Cardiovascular Services [address] [place] [address] 12 Lead EKG 05/30/24 2330 MR#: [id number] Acct: [id number] Name: LAKEISHA TOPETE Rep #:[id number] : 1970 53 From: Fiordaliza bragg MD Attending Dr: Dr. Linwood Vega MD Status: ADM SUSANA Ordering Dr: Marcos Medina MD Date: 05/31/24 [place] [facility] [place] Sex: F C Admitted: 05/30/24 Test Reason : PRE-OP Blood Pressure : */* mmHG Vent. Rate : 88 BPM Atrial Rate : 88 BPM P-R Int : 140 ms QRS Dur : 96 ms QT Int : 380 ms P-R-T Axes : 43 7 73 degrees QTcB Int : 459 ms Normal sinus rhythm Minimal voltage criteria for LVH, may be normal variant ( R in aVL ) Possible Lateral infarct , age undetermined Inferior infarct (cited on or before 18-Jul-2018) Abnormal ECG Confirmed by Fiordaliza Lomax ([id number]), material expeditor AYE DIAZ ([id number]) on 05/31/2024 7:57:52 AM Referred By: CAROL Confirmed By: Fiordaliza Lomax 05/31/24 0757 Date _ Fiordaliza Lomax MD CC: CHRISSY Lanier; Dr. Marcos Medina MD; Dr. Linwood Vega MD ~ Signed [facility] Other Phone: Eosinophil percentageOrdered By: Linwood Vega on 05-31-2024 Eosinophils/100 WBC (Bld) 1.8 % 0-5 [facility] Erythrocyte distribution wid th (RBC) [Ratio]Ordered By: Linwood Vega on 05-31-2024 Erythrocyte distribution width (RBC) [Entitic vol] 46.5 fL High 35.1-43.9 [facility] Erythrocyte distribution wid th ratioOrdered By: Linwood Vega on 05-31-2024 Erythrocyte distribution width (RBC) [Ratio] 16.3 % High 11.6-14.6 [facility] Erythrocyte distribution wid th standard deviationOrdered By: Linwood Vega on 05-31-2024 Erythrocyte distribution width (RBC) [Ratio] 46.5 fl High 35.1-43.9 [facility] Estimation of creatinine skip aranceOrdered By: Linwood Vega on 05-31-2024 Estimated Creatinine Clearance Calc 80.94 ml/min 50-250 [facility] GFR/1.73 sq M.predicted yesenia g non-blacks MDRD (S/P/Bld) [Vol rate/Area]Ordered By: Linwood Vega on 05-31-2024 Estimated GFR (MDRD) Non-Af Amer 87 >60 [facility] Comment on above: mL/min/1.73m2 CKD-EP I Creatinine Equation (2020) Glomerular filtration rate ( GFR) estimation/1.73 sq m using serum, plasma, or whole bOrdered By: Linwood Vega on 05-31-2024 GFR/1.73 sq M.predicted among non-blacks MDRD (S/P/Bld) [Vol rate/Area] 87 mL/min/{1.73_m2} >60 [facility] Comment on above: mL/min/1.73m2 CKD-EP I Creatinine Equation (2020) Hematocrit Auto (Bld) [Volum e fraction]Ordered By: Linwood Vega on 05-31-2024 Hematocrit (Bld) [Volume fraction] 30.7 % Low 37-47 [facility] Hemoglobin A1con 05-31-2024 HbA1c (Bld) [Mass fraction] 6.4 % Normal <=5.6 [facility] Comment on above: Performed By: #### L [id number] ####[facility] [id number] [place], [address] Hemoglobin A1c percentageOrd ered By: Marcos Medina on 05-31-2024 HbA1c (Bld) [Mass fraction] 6.4 % >5.7 [facility] Hemoglobin measurementOrdere d By: Linwood Vega on 05-31-2024 Hemoglobin (Bld) [Mass/Vol] 9.3 g/dL Low 12.0-15.0 [facility] Immature granulocytes/100 WB C Auto (Bld)Ordered By: Linwood Vega on 05-31-2024 Immature granulocytes/100 WBC (Bld) 0.800 % 0.0-0.9 [facility] Comment on above: IG% - Immature Granu locytes (promyelocytes, myelocytes and metamyelocytes) > 1% indicates that a LEFT SHIFT is Present. Lymphocytes Auto (Unsp spec) [#/Vol]Ordered By: Linwood Vega on 05-31-2024 Lymphocytes (Bld) [#/Vol] 3.03 10*3/uL 0.83-4.51 [facility] Lymphocytes/100 WBC Auto (Un sp spec)Ordered By: Linwood Vega on 05-31-2024 Lymphocytes/100 WBC (Bld) 19.7 % 19-41 [facility] MCV (mean corpuscular volume ) determinationOrdered By: Linwood Vega on 05-31-2024 MCV (RBC) [Entitic vol] 77.7 fL Low 81-99 [facility] MR/POSTOP.ANEon 05-31-2024 MR/POSTOP.ANE [facility] Medical Records Department [address] [place] [address] Anesthesia Postop Eval I 05/31/24 1559 MR#: [id number] Acct: [id number] Name: LAKEISHA TOPETE Rep #: [id number] : 1970 53 From: Silvio Lawrence CRNA PCP: CHRISSY Alcantara Status:ADM IN Y Race: C Location: [facility] [place] SI290-1 Anesthesia: Postop Eval I Current Vital Signs Temperature: 97 F Pulse Rate: 97 Blood Pressure: 121/83 Respiratory Rate: 18 Pulse Ox: 99 Assessment Airway patent: Yes Spontaneous unlabored respirations: Yes nausea: No Vomiting: No Anesthesia Complication: No Fluid Hydration Crystalloid volume administer (ml): 300 Total IV fluid infused: 300 Progress Note Anesthesia document: Postop Eval 1 completed: Yes 05/31/24 1559 Date Silvio Lawrence RAW MILL OPERATOR Cosigner Signature: Date CC: Signed Normal [facility] [id number] 05-31-2024 MR/POSTOPAN2 [facility] Medical Records Department [address] [place] [address] Anesthesia Postop Eval II 05/31/24 1603 MR#: [id number] Acct: [id number] Name: LAKEISHA TOPETE Rep #: [id number] : 1970 53 From: Juliocesar Joe MD PCP: CHRISSY Alcantara Status:ADM IN Y Race: C Location: [facility] [place] [id number] Anesthesia Postop Eval I Sum Postop Eval Completion status Anesthesia document: Postop Eval 1 completed: Yes Anesthesia Postop Eval I Summary Anesthesia Postop Eval I Summary: Anesthesia Postop Eval I: Assessment Summary Airway patent Yes 05/31/24 15:59 [email or web address] Spontaneous unlabored Yes 05/31/24 15:59 [email or web address] [email or web address] respirations Mental status nausea No 05/31/24 15:59 [email or web address] [email or web address] Vomiting No 05/31/24 15:59 [email or web address] Anesthesia Postop Eval I: Fluid Summary Crystalloid volume administer 300 05/31/24 15:59 [email or web address] (ml) Colloids volume administered ( ml) Blood Product volume administered (ml) Total IV fluid infused 300 05/31/24 15:59 [email or web address] Anesthesia Postop Eval I: Summary Notes Anesthesia Complication No 05/31/24 15:59 [email or web address] Anesthesia Complication Comment: Post-operative progress note Anesthesia: Postop Eval II Evaluation Mental status: Awake Pain Level: 0 nausea: No Vomiting: No 05/31/24 1603 Date Juliocesar Valerio Signature: Date CC: Signed Normal [facility] Mean corpuscular hemoglobin (MCH) determinationOrdered By: Linwood Vega on 05-31-2024 MCH (RBC) [Entitic mass] 23.5 pg Low 27.0-32.0 [facility] Mean corpuscular hemoglobin concentration (MCHC) determinationOrdered By: Linwood Vega on 05-31-2024 MCHC (RBC) [Mass/Vol] 30.3 g/dL Low 32-36 [facility] Mean platelet volume determi nationOrdered By: Linwodo Vega on 05-31-2024 Platelet mean volume (Bld) [Entitic vol] 10.4 fL 6.2-12.0 [facility] Monocyte percentageOrdered B y: Linwood Vega on 05-31-2024 Monocytes/100 WBC (Bld) 11.0 % High 0-10 [facility] Neutrophil percentageOrdered By: Linwood Vega on 05-31-2024 Neutrophils/100 WBC (Bld) 66.3 % 47-70 [facility] Nucleated red blood cell per centageOrdered By: Linwood Vega on 05-31-2024 Nucleated RBC/100 WBC (Bld) [Ratio] 0 % 0-5 [facility] Operative Reporton 5 Operative Report [facility] Medical Records Department [address] [place] [address] Operative Report 05/31/24 1542 MR#: [id number] Acct: [id number] Name: LAKEISHA TOPETE Rep #: [id number] : 1970 53 From: Linwood Vega MD PCP: CHRISSY Alcantara Status:ADM IN [id number] (Standard[facility] Operative Information Date of Procedure: 05/31/24 Pre-Operative Diagnosis: Right ureteral calculi Post-Operative Diagnosis: The same Surgery/Procedure Performed: Cystoscopy right stent placement right ESWL appliance repair technician: No Type of Anesthesia: General RN Documented Start/Stop Times: Operation Date: 05/31/24 16:00 Case Time Into Pre-Op 05/31/24 13:26 Out of Pre-Op 05/31/24 14:24 Anesthesia Start 05/31/24 14:30 Into Room 05/31/24 14:30 Procedure Start 05/31/24 14:38 Procedure Start Time: 14:38 Procedure Stop Time: 15:43 Select all DRAINS/GRAFTS/IMPLANTS that apply: Drains Drain details: stent right Estimated Blood Loss: 0 Specimen collected: No Description of surgery: Patient presents to the hospital for treatment of a kidney stone with shockwave lithotripsy. In the preoperative area and x-ray was done to confirm the location of the stone. The x-ray was reviewed and the stone location was reviewed. In the preoperative setting I spoke with the patient regarding the treatment of the stone how the treatment would be conducted and the expectations after surgery. The patient understands there is a risk of bleeding and infection. Also discussed the very rare risk of hematoma or damage to the kidney. We also discussed the risk that the shockwave machine will fail to break the stone adequately and that the patient may need other surgical procedures. I also discussed the possibility that the patient may need a stent after the procedure. After reviewing the procedure with the patient, the patient is signed the consent form all the patient's questions were addressed and was taken back to the operating room for treatment of a kidney stone. Patient was taken back to the operating room, the patient was identified by the nursing staff, I identified the side of the treatment and the patient side of treatment had been marked by my initials. The patient underwent general anesthetic and was placed supine on the lithotripter table. I then used fluoroscopy to identify the stone on the right side. The urethra and genitals were prepped and draped in usual sterile fashion. Using a 21 Malagasy rigid cystourethroscope the entire length of the urethra was normal then went into the bladder. Identified the trigone the left and right ureteral orifice. I then cannulated the right ureteral orifice and advanced a wire up into the kidney. I then backloaded a 5 Malagasy open ended catheter over the wire and injected contrast to delineate the anatomy. After the retrograde was performed I then used fluoroscopic images and guidance to advanced a wire up into the kidney and over the 0.038 glidewire I advanced a 6 Malagasy by 26 cm double pigtail stent. I then pulled the 0.038 Glidewire off and the stent coiled in the kidney bladder good position. The bladder was then drained. We confirmed the position of the stent by fluoroscopy. I then positioned the patient under the lithotripter and I used triangulation technique to identify the location of the stone and then I made sure that the stone was engaged in the F2 focal point of F2 Donier lithoprior machine. Once the patient was positioned appropriately and the stone was identified and placed in the F2 focal point of the lithotripter machine I then proceeded with shockwave lithotripsy. In the beginning the shockwave was delivered at a rate of 90 shocks per minute, anesthesia monitored the EKG for any ectopy. The power was slowly increased to 5 kV and subsequently at the 7 kV. I then proceeded with the treatment with shock wave therapy and around during the treatment to make sure the stone stayed in the F2 focal point during the entire treatment and after 3000 shockwaves were delivered to the stone under fluoroscopic guidance the treatment was completed. The patient was given instructions to call the office to make an a follow- up appointment with an x-ray to evaluate the success of the treatment, patient understands that its possible the stones may need another procedure. At this point the patient's anesthetic was reversed patient was extubated and taken back to the PACU in stable condition. Surgical Findings: stone treated in proximal ureter Complications Complications: No Admit VTE Documentation VTE Present on Admission: No VTE Mechan Device Prophylaxis: SCD's VTE Pharm Prophylaxis ordered?: No 05/31/24 4145 Cosigner Signature (if applicable): CC: CHRISSY Lanier; Dr. Linwood Vega MD Signed Normal [facility] Platelet countOrdered By: Marleni Vega on 05-31-2024 Platelets (Bld) [#/Vol] 291 10*3/uL 150-450 [facility] Platelet estimateOrdered By: Linwood Vega on 05-31-2024 Platelets LM Ql (Bld) ADEQUATE ADEQ [facility] Platelets LM Ql (Bld)Ordered By: Linwood Vega on 05-31-2024 Platelet Estimate ADEQUATE [facility] Potassium (Unsp spec) [Mass/ Vol]Ordered By: Linwood Vega on 05-31-2024 Potassium [Moles/Vol] 3.1 mmol/L Low 3.3-5.1 [facility] Potassium measurement (mass/ volume)Ordered By: Linwood Vega on 05-31-2024 Potassium (Unsp spec) [Mass/Vol] 3.1 mmol/L Low 3.3-5.1 [facility] RBC Auto (Bld) [#/Vol]Ordere d By: Linwood Vega on 05-31-2024 RBC (Bld) [#/Vol] 3.95 10*6/uL Low 4.2-5.4 [facility] Serum creatinine measurement (mass/volume)Ordered By: Linwood Vega on 05-31-2024 Creatinine [Mass/Vol] 0.82 mg/dL 0.70-1.20 [facility] Serum glucose measurement (m ass/volume)Ordered By: Linwood Vega on 05-31-2024 Glucose [Mass/Vol] 76 mg/dL 70-99 [facility] Serum or plasma calcium sulma urement (mass/volume)Ordered By: Linwood Silvia on 05-31-2024 Calcium [Mass/Vol] 8.3 mg/dL 7.6-11.0 [facility] Serum or plasma urea nitroge n measurement (mass/volume)Ordered By: Linwoodhamzah Vega on 05-31-2024 Urea nitrogen [Mass/Vol] 14 mg/dL 4-19 [facility] Sodium levelOrdered By: Linwood Silvia on 05-31-2024 Sodium [Moles/Vol] 138 mmol/L 133-145 [facility] White blood cell (WBC) count Ordered By: Linwood Silvia on 05-31-2024 WBC (Bld) [#/Vol] 15.4 10*3/uL High 4.4-11.0 [facility] Abdomen/Pelvis without Conto n 05-30-2024 Abdomen/Pelvis without Cont [facility] Imaging Services [facility] [place], [place] [address] Abdomen/Pelvis without Cont MR#: [id number] Acct: [id number] Name: LAKEISHA TOPETE Rep #: [id number] : 1970 F 53 From: Maria Ines Menendez nd, MD PCP: CHRISSY Alcantara Status: REG ER Study: Abdomen/Pelvis without Cont Date of Exam: 03/25 Exam# [id number] Ordering Dr: Rob Perdomo DO PROCEDURE: ABDOMEN/PELVIS WITHOUT CONT 05/30/2024 REASON FOR EXAM: 53-year-old female, RIGHT FLANK PAIN TECHNIQUE: Abdomen and pelvis CT without intravenous contrast. Noncontrast technique limits evaluation of the abdominal and pelvic viscera. Coronal and Sagittal reconstruction series were provided. One or more dose reduction techniques were used (e.g., Automated exposure control, adjustment of the mA and/or kV according to patient size, use of iterative reconstruction technique). PATIENT PREPARATION: Per protocol ORAL CONTRAST TYPE: None. COMPARISON: CT abdomen pelvis 05/12/2024. FINDINGS: Lung bases: The lung bases are clear. The heart is normal in size. Liver: Mild hepatomegaly with diffuse hepatic steatosis. No biliary ductal dilation. Gallbladder: Prior cholecystectomy. Spleen: Normal size. Pancreas: The unopacified pancreas is unremarkable. Adrenals: Unremarkable. Kidneys: Obstructing right ureteral stone at the UVJ measuring approximately 8 mm, with moderate hydroureteronephrosis. Unremarkable left kidney. Bladder: Decompressed. Reproductive Organs: Mildly enlarged, lobular uterus. Stable right ovarian cyst. Bowel: The bowel loops are normal in caliber. No ascites or pneumoperitoneum. Prior appendectomy. Lymph nodes: Visualization is limited without the use of IV contrast. No lymphadenopathy. Vasculature: The abdominal aorta and IVC contours are normal. Noncontrast technique limits evaluation. Bones: Thoracolumbar spondylosis with unchanged L5 spondylolysis. 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 CT/Abdomen/Pelvis without Cont IMPRESSION: 1. Obstructing right ureteral stone at the UVJ measuring 8 mm with moderate hydroureteronephrosis. 2. Mild hepatomegaly with diffuse hepatic steatosis. 3. Stable cystic focus within the right ovary. Follow-up pelvic ultrasound in 6 weeks is recommended for further evaluation. Reading Location: [facility] CC: CHRISSY Lanier; Dr. Rob Perdomo, Hadoop Architect: Signed Normal [facility] Absolute neutrophil countOrd ered By: Rob Perdomo on 05-30-2024 Neutrophils (Bld) [#/Vol] 11.1 10*3/uL High 2.0-7.7 [facility] Anion gap in Serum or Plasma Ordered By: Rob Perdomo on 05-30-2024 Anion gap [Moles/Vol] 14 mmol/L 5-15 [facility] BUN/creatinine ratioOrdered By: Rob Perdomo on 05-30-2024 Urea nitrogen/Creatinine [Mass ratio] 12.0 mg/mg 10-20 [facility] Basophil percentageOrdered B y: Rob Perdomo on 05-30-2024 Basophils/100 WBC (Bld) 0.4 % 0-1 [facility] Bilirubin Test strip Ql (U)O rdered By: Rob Perdomo on 05-30-2024 Bilirubin Ql (U) Negative Negative [facility] Bilirubin, totalOrdered By: Rob Perdomo on 05-30-2024 Bilirubin [Mass/Vol] 0.53 mg/dL 0.00-1.30 [facility] Blood manual differential co mment interpretation (narrative result)Ordered By: Rob Perdomo on 05-30-2024 Manual differential comment [place] (Bld) [Interp] SCANNED [facility] Comment on above: MONOCYTOSIS NOTED Carbon dioxide, total [Moles /volume] in Central venous bloodOrdered By: Rob Perdomo on 05-30-2024 CO2 [Moles/Vol] 23.6 mmol/L 21.0-32.0 [facility] Chloride assayOrdered By: Eliezer Perdomo on 05-30-2024 Chloride [Moles/Vol] 103 mmol/L 98-108 [facility] Comprehensive Metabolic Prof ilon 05-30-2024 Albumin [Mass/Vol] 3.9 g/dL Normal 3.5-5.0 [facility] Comment on above: Performed By: #### L 100.0100, L500.2500 #### [facility] Laboratory [address] [place], [address] Albumin/Globulin [Mass ratio] 1.0 {ratio} Normal 0.9-2.4 [facility] Comment on above: Performed By: #### L 100.0100, L500.2500 #### [facility] Laboratory [address] [place], [address] ALK PHOS 93 U/L Normal 35-104 [facility] Comment on above: Performed By: #### L 100.0100, L500.2500 #### [facility] Laboratory [address] [place], [address] ALT [Catalytic activity/Vol] 10 U/L Normal <=34 [facility] Comment on above: Performed By: #### L 100.0100, L500.2500 #### [facility] Laboratory [address] [place], [address] AST [Catalytic activity/Vol] 18 U/L Normal <=31 [facility] Comment on above: Performed By: #### L 100.0100, L500.2500 #### [facility] Laboratory [address] [place], [address] Bilirubin [Mass/Vol] 0.53 mg/dL Normal 0.00-1.30 [facility] Comment on above: Performed By: #### L 100.0100, L500.2500 #### [facility] [address] [place], [address] BUN/CRE 12.0 RATIO Normal 10-20 [facility] Comment on above: Performed By: #### L 100.0100, L500.2500 #### [facility] Laboratory [address] [place], [address] Calcium [Mass/Vol] 9.2 mg/dL Normal 7.6-11.0 [facility] Comment on above: Performed By: #### L 100.0100, L500.2500 #### [facility] [address] [place], [address] Chloride [Moles/Vol] 103 mmol/L Normal 98-108 [facility] Comment on above: Performed By: #### L 100.0100, L500.2500 #### [facility] [address] [place], [address] CO2 [Moles/Vol] 23.6 mmol/L Normal 21.0-32.0 [facility] Comment on above: Performed By: #### L 100.0100, L500.2500 #### [facility] Laboratory [address] [place], [address] Creatinine [Mass/Vol] 1.01 mg/dL Normal 0.70-1.20 [facility] Comment on above: Performed By: #### L 100.0100, L500.2500 #### [facility] Laboratory [address] [place], [address] ECRCL 66.64 ml/min Normal 50-250 [facility] Comment on above: Performed By: #### L 100.0100, L500.2500 #### [facility] Laboratory [address] [place], [address] GAP 14 Normal 5-15 [facility] Comment on above: Performed By: #### L 100.0100, L500.2500 #### [facility] Laboratory [address] [place], [address] GFR/1.73 sq M.predicted among non-blacks MDRD (S/P/Bld) [Vol rate/Area] 67 mL/min/{1.73_m2} Normal >60 [facility] Comment on above: Result Comment: mL/m in/1.73m2 CKD-EPI Creatinine Equation (2020) Performed By: #### L 100.0100, L500.2500 #### [facility] [facility] [address] [place], [address] Globulin (S) [Mass/Vol] 3.9 g/dL Normal 2.2-4.2 [facility] Comment on above: Performed By: #### L 100.0100, L500.2500 #### [facility] [place] [facility] [address] [place], [address] Glucose [Mass/Vol] 102 mg/dL High 70-99 [facility] Comment on above: Performed By: #### L 100.0100, L500.2500 #### [facility] [place] [address] [place], [address] Potassium [Moles/Vol] 3.3 mmol/L Normal 3.3-5.1 [facility] Comment on above: Performed By: #### L 100.0100, L500.2500 #### [facility] [address] [place], [address] Sodium [Moles/Vol] 140 mmol/L Normal 133-145 [facility] Comment on above: Performed By: #### L 100.0100, L500.2500 #### [facility] [address] [place], [address] T PROT 7.8 g/dL Normal 5.9-8.4 [facility] Comment on above: Performed By: #### L 100.0100, L500.2500 #### [facility] [address] [place], [address] Urea nitrogen [Mass/Vol] 12 mg/dL Normal 4-19 [facility] Comment on above: Performed By: #### L 100.0100, L500.2500 #### [facility] [place] [address] [place], [address] Discharge Instructionon 04-0 Discharge Instruction [facility] Medical Records Department [address] [place] [address] Instructions for Home/Discharge Instructions 05/30/242047 MR#: [id number] Acct: [id number] Name: LAKEISHA TOPETE Rep #: [id number] : 1970 53 From: Linwood Vega MD PCP: CHRISSY Alcantara Status:ADM IN Discharge Instructions Diet Discharge Diet: No restrictions DC O2, CPAP, BIPAP needs Home O2 Discharge instructions: No Dressing / Incision Discharge Activity: Return to Normal Activity and May Not Drive (while taking narcotic pain medications.) Dressing / Incision Call your doctor if you observe: Fever of 101 or Higher Follow Up Care Please Follow Up With: Linwood Vega MD When: Call [phone] for an appointment Test Results: Test results from this visit will be discussed in further detail at your follow-up appointment, if applicable. Discharge Plan Admission Admit Date/Time: 05/30/24 19:16 Attending Provider: Linwood Vega Primary Care Provider: Desire Lanier NP Discharge Orders/Prescriptions Prescriptions: No Action fluoxetine 20 MG capsule 20 mg PO DAILY metformin 500 mg tablet 500 mg PO BID Qty: 20 0RF budesonide-formoterol [Symbicort] 80-4.5 mcg/actuation HFA aerosol inhaler 2 puff inhalation BID Qty: 10.2 0RF ibuprofen 800 mg tablet 800 mg PO TID PRN (Reason: pain) Qty: 20 0RF glipizide 5 mg tablet extended release 24hr 5 mg PO DAILY epinephrine 0.3 mg/0.3 mL auto-injector 0.3 mg IM UD PRN (Reason: anaphylaxis) acetaminophen 500 mg tablet 500 mg PO Q6H PRN (Reason: pain) aripiprazole 5 mg tablet 5 mg PO DAILY simvastatin 80 mg tablet 80 mg PO QHS losartan 25 mg tablet 25 mg PO DAILY oxybutynin chloride 5 mg tablet extended release 24hr 5 mg PO DAILY albuterol sulfate [Ventolin HFA] 90 mcg/actuation HFA aerosol inhaler 1 - 2 puff inhalation Q4H PRN (Reason: Wheezing) Rx Instructions: please give spacer fluticasone propionate 50 mcg/actuation spray,suspension 2 spray INTRANASAL DAILY Referrals / Follow Up: Desire Lanier NP, NP-C [Primary Care Provider] - 05/30/242047 Linwood Vega MD CC: SPEECH COACH-C Desire Lanier Signed Normal [facility] Emergency Department Summary on 05-30-2024 Emergency Department Summary [facility] Medical Records Department [address] [place] [id number] Emergency Department Summary 05/30/24 MR#: [id number] Acct: [id number] Name: LAKEISHA TOPETE Rep #: [id number] : 1970 53 From: Rob Perdomo DO PCP: CHRISSY Alcantara Status:ADM SUSANA Location: ID3 [id number] [facility] History of Present Illness Chief Complaint: Flank Pain Informant: patient Onset/Context/Timing Onset: Yesterday Context: Sudden Onset Timing: Continuous Quality: Stabbing Location: Right flank and right abdomen Worsened by: Nothing Relieved by: Nothing Narrative Narrative: Patient presents with right-sided flank and abdominal pain that became worse yesterday. Patient states she has had similar symptoms in the past with prior kidney stones. Patient describes her pain as stabbing. Patient states it is constant. Patient states it is over the right flank and right abdomen. Patient states nothing makes it better nothing makes it worse. Patient admits to some nausea and vomiting. Patient states she is vomiting up some dark contents. Patient also admits to a cough. Patient states she is coughing up some dark contents. Patient admits to some dysuria but denies any hematuria or frequency. Patient states her pain does radiate into her back. Patient admits to some subjective chills but denies any fevers. [facility] Medical History Restless legs Anxiety Depression Sleep apnea Irregular heart beat Seizures TIA (transient ischemic attack) Hyperlipidemia Bipolar 1 disorder Hypertension Diabetes Asthma Home Medications ???Medication ???Instructions ???Recorded ???Last Taken ???Type fluoxetine 20 mg capsule 20 mg PO DAILY depression 07/18/18 12/01/23 History metformin 500 mg tablet 500 mg PO BID #20 tabs 05/25/22 Rx budesonide-formoterol HFA 80 2 puff inhalation BID #10.2 grams 01/04/23 12/01/23 Rx mcg-4.5 mcg/actuation aerosol inhaler (Symbicort) ibuprofen 800 mg tablet 800 mg PO TID PRN pain #20 tabs 12/01/23 Rx epinephrine 0.3 mg/0.3 mL 0.3 mg IM UD PRN anaphylaxis 11/30 Unknown History injection, auto-injector glipizide 5 mg tablet, extended 5 mg PO DAILY 12/01/23 12/01/23 Hi story release 24 hr norethindrone acetate 5 mg tablet 5 mg PO BID PRN vag bleeding 04/2412/02/23 History acetaminophen 500 mg tablet 500 mg PO Q6H PRN pain 12/02/23 History albuterol sulfate 90 mcg/actuation 1 - 2 puff inhalation Q4H PRN Unknown History aerosol inhaler (Ventolin HFA) Wheezing aripiprazole 5 mg tablet 5 mg PO DAILY 12/02/23 12/01/23 Hi story losartan 25 mg tablet 25 mg PO DAILY 12/02/23 12/01/23 H istory oxybutynin chloride 5 mg 5 mg PO DAILY 12/02/23 12/01/23 Hi story tablet,extended release 24 hr simvastatin 80 mg tablet 80 mg PO QHS 12/02/23 12/01/23 His tory cephalexin 500 mg capsule 500 mg PO TID 7 days #21 caps 04/29 06/23 Unknown Rx ketorolac 10 mg tablet 10 mg PO 4X/DAY PRN pain 5 days Unknown Rx #20 tabs ondansetron 4 mg disintegrating 4 mg PO TID PRN nausea and 5 Unknown Rx tablet vomiting #21 tabs oxycodone-acetaminophen 5 mg-325 1 tab PO Q6H PRN pain 3 days #12 0 05/12/24 Unknown Rx mg tablet (Percocet) tabs tamsulosin 0.4 mg capsule (Flomax) 0.4 mg PO DAILY 14 days #14 caps 05/12/24 Unknown Rx Allergy/AdvReac Type Severity Reaction Status Date / Time Penicillins AdvReac Vomiting Verified 05/30/24 16:02 Surgical History S/P dilatation and curettage Hx of cholecystectomy Hx of breast surgery Hx of tubal ligation Social History Smoking Status: Current some day smoker tobacco type: e-cigarettes ROS ROS ED Constitutional Constitutional ED: Reports chills and subjective; Denies fever(s) Eyes Eyes: Denies blurry vision or change in vision ENT ENT ED: Denies rhinorrhea or sore throat Cardiovascular Cardiovascular: Denies chest pain or palpitations Respiratory/Chest Respiratory/Chest: Reports cough; Denies dyspnea Gastrointestinal Gastrointestinal: Reports abdominal pain, nausea and vomiting; Denies diarrhea Genitourinary Genitourinary ED: Reports dysuria; Denies hematuria Musculoskeletal Musculoskeletal: Reports back pain; Denies neck pain Integumentary Denies abscess or rash Neurologic Neurologic: Denies headache(s) or weakness Allergic/Immunologic Allergic/Immunologic ED: Denies mouth swelling or urticaria EXAM Physical Exam Const Vital Signs: 05/30/24 16:02 05/30/24 18:01 Temperature 98.5 F 97.9 F Temperature Source Oral Oral Pulse Rate 73 82 Respiratory Rate 16 16 Blood Pressure 121/70 H (more content not included)... Normal [facility] Eosinophil percentageOrdered By: Rob Perdomo on 05-30-2024 Eosinophils/100 WBC (Bld) 0.9 % 0-5 [facility] Epithelial cells.squamous LM Ql (Urine sed)Ordered By: Rob Perdomo on 05-30-2024 Epithelial cells.squamous LM.HPF (Urine sed) [#/Area] 0 /[HPF] 5-10 [facility] Erythrocyte distribution wid th ratioOrdered By: Rob Perdomo on 05-30-2024 Erythrocyte distribution width (RBC) [Ratio] 16.5 % High 11.6-14.6 [facility] Erythrocyte distribution wid th standard deviationOrdered By: Rob Perdomo on 05-30-2024 Erythrocyte distribution width (RBC) [Entitic vol] 44.7 fL High 35.1-43.9 [facility] Estimation of creatinine skip aranceOrdered By: Rob Perdomo on 05-30-2024 Estimated Creatinine Clearance Calc 66.64 ml/min 50-250 [facility] GFR/1.73 sq M.predicted yesenia g non-blacks MDRD (S/P/Bld) [Vol rate/Area]Ordered By: Rob Perdomo on 05-30-2024 Estimated GFR (MDRD) Non-Af Amer 67 >60 [facility] Comment on above: mL/min/1.73m2 CKD-EP I Creatinine Equation (2020) Glucose Ql (U)Ordered By: Eliezer Perdomo on 05-30-2024 Urine Glucose (UA) Normal mg/dl Normal [facility] Hematocrit Auto (Bld) [Volum e fraction]Ordered By: Rob Perdomo 05-30-2024 Hematocrit (Bld) [Volume fraction] 35.4 % Low 37-47 [facility] Hemoglobin measurementOrdere d By: Rob Perdomo on 05-30-2024 Hemoglobin (Bld) [Mass/Vol] 11.0 g/dL Low 12.0-15.0 [facility] Immature granulocytes/100 WB C Auto (Bld)Ordered By: Rob Perdomo on 05-30-2024 Immature granulocytes/100 WBC (Bld) 0.900 % 0.0-0.9 [facility] Comment on above: IG% - Immature Granu locytes (promyelocytes, myelocytes and metamyelocytes) > 1% indicates that a LEFT SHIFT is Present. Ketones Test strip Ql (U)Ord ered By: Rob Perdomo on 05-30-2024 Ketones Ql (U) Negative Negative [facility] [place] - Chemistry and C hemistry - challengeOrdered By: Rob Perdomo on 05-30-2024 AST [Catalytic activity/Vol] 18 U/L <32 [facility] Lipaseon 05-30-2024 Lipase [Catalytic activity/Vol] 20 U/L Normal 13-75 [facility] Comment on above: Result Comment: Plea note: LIPASE revised reference range effective 22. New Lipase methodology. Expected to produce lower values than the previous assay method. NEW Reference Range: 13 - 75 U/L Performed By: #### L 100.0100, L500.2500 #### [facility] [place] [address] [place], [address] Lipase measurementOrdered By : Rob Perdomo on 05-30-2024 Lipase [Catalytic activity/Vol] 20 U/L 13-75 [facility] Comment on above: Please note:LIPASE r evised reference range effective 22. New Lipase methodology. Expected to produce lower values than the previous assay method. NEW Reference Range: 13 - 75 U/L Lymphocytes Auto (Unsp spec) [#/Vol]Ordered By: Rob Perdomo on 05-30-2024 Lymphocytes (Bld) [#/Vol] 2.54 10*3/uL 0.83-4.51 [facility] Lymphocytes/100 WBC Auto (Un sp spec)Ordered By: Rob Perdomo on 05-30-2024 Lymphocytes/100 WBC (Bld) 16.0 % Low 19-41 [facility] MCV (mean corpuscular volume ) determinationOrdered By: Rob Perdomo on 05-30-2024 MCV (RBC) [Entitic vol] 76.1 fL Low 81-99 [facility] Manual differential comment Clayton (Bld) [Interp]Ordered By: Rob Perdomo on 05-30-2024 Differential Comment SCANNED [facility] Comment on above: MONOCYTOSIS NOTED Mean corpuscular hemoglobin (MCH) determinationOrdered By: Rob Perdomo on 05-30-2024 MCH (RBC) [Entitic mass] 23.7 pg Low 27.0-32.0 [facility] Mean corpuscular hemoglobin concentration (MCHC) determinationOrdered By: Rob Perdomo on 05-30-2024 MCHC (RBC) [Mass/Vol] 31.1 g/dL Low 32-36 [facility] Mean platelet volume determi nationOrdered By: Rob Perdomo on 05-30-2024 Platelet mean volume (Bld) [Entitic vol] 10.1 fL 6.2-12.0 [facility] Microscopic analysis of urin e for red blood cells (RBC)Ordered By: Rob Perdomo on 05-30-2024 Microscopic analysis of urine for red blood cells (RBC) 10-25 SEEN /hpf 0-5 [facility] Urine RBC 10-25 SEEN /hpf 0-5 [facility] Monocyte percentageOrdered B y: Rob Perdomo on 05-30-2024 Monocytes/100 WBC (Bld) 12.2 % High 0-10 [facility] Mucus LM Ql (Urine sed)Order ed By: Rob Perdomo on 05-30-2024 Mucus Ql (Urine sed) 0 SEEN /hpf [facility] Neutrophil percentageOrdered By: Rob Perdomo on 05-30-2024 Neutrophils/100 WBC (Bld) 69.6 % 47-70 [facility] Nitrite Test strip Ql (U)Ord ered By: Rob Perdomo on 05-30-2024 Nitrite Ql (U) Negative Negative [facility] Nucleated red blood cell per centageOrdered By: Rob Perdomo on 05-30-2024 Nucleated RBC/100 WBC (Bld) [Ratio] 0 % 0-5 [facility] Pathologist review Clayton (Unsp spec) [Interp]Ordered By: Rob Perdomo on 05-30-2024 Differential Pathologist's Review May foll [facility] Platelet countOrdered By: Eliezer Perdomo on 05-30-2024 Platelets (Bld) [#/Vol] 315 10*3/uL 150-450 [facility] Potassium (Unsp spec) [Mass/ Vol]Ordered By: Rob Perdomo on 05-30-2024 Potassium [Moles/Vol] 3.3 mmol/L 3.3-5.1 [facility] Protein Test strip Ql (U)Ord ered By: Rob Perdomo on 05-30-2024 Protein Ql (U) 100 mg/dl High Negative [facility] RBC Auto (Bld) [#/Vol]Ordere d By: Rob Perdomo on 05-30-2024 RBC (Bld) [#/Vol] 4.65 10*6/uL 4.2-5.4 [facility] Review by pathologistOrdered By: Rob Perdomo on 05-30-2024 Pathologist review Clayton (Unsp spec) [Interp] Reviewed [facility] Comment on above: Previous reported re sult: Charlene wu Edited by: DUSTY on 06/04/24:1433 AMENDED REPORT 06/04/24 1433 PATH REV previously reported as: Charlene wu Previous reported result: N/A Edited by: DUSTY on 06/04/24:1520 AMENDED REPORT 06/04/24 1520 PATH REV previously reported as: N/A Previous reported result: Charlene wu Edited by: RICHARD on 07/20/24:1610SEE REPORT IN PATIENT'S EMR AMENDED REPORT 07/20/24 1610 PATH REV previously reported as: Charlene wu Serum creatinine measurement (mass/volume)Ordered By: Rob Perdomo on 05-30-2024 Creatinine [Mass/Vol] 1.01 mg/dL 0.70-1.20 [facility] Serum globulin measurementOr dered By: Rob Perdomo on 05-30-2024 Globulin (S) [Mass/Vol] 3.9 g/dL 2.2-4.2 [facility] Serum glucose measurement (m ass/volume)Ordered By: Rob Perdomo on 05-30-2024 Glucose [Mass/Vol] 102 mg/dL High 70-99 [facility] Serum or plasma alanine khanna otransferase (ALT) measurementOrdered By: Rob Perdomo on 05-30-2024 ALT [Catalytic activity/Vol] 10 U/L <35 [facility] Serum or plasma albumin sulma urement (mass/volume)Ordered By: Rob Perdomo on 05-30-2024 Albumin [Mass/Vol] 3.9 g/dL 3.5-5.0 [facility] Serum or plasma albumin/glob ulin mass ratioOrdered By: Rob Perdomo on 05-30-2024 Albumin/Globulin [Mass ratio] 1.0 {ratio} 0.9-2.4 [facility] Serum or plasma alkaline joey sphatase measurementOrdered By: Rob Perdomo on 05-30-2024 ALP [Catalytic activity/Vol] 93 U/L 35-104 [facility] Serum or plasma calcium sulma urement (mass/volume)Ordered By: Rob Perdomo on 05-30-2024 Calcium [Mass/Vol] 9.2 mg/dL 7.6-11.0 [facility] Serum or plasma urea nitroge n measurement (mass/volume)Ordered By: Rob Perdomo on 05-30-2024 Urea nitrogen [Mass/Vol] 12 mg/dL 4-19 [facility] Sodium levelOrdered By: Rob Perdomo on 05-30-2024 Sodium [Moles/Vol] 140 mmol/L 133-145 [facility] Squamous epithelial cells de tection in urine sediment by light microscopyOrdered By: Rob Perdomo on 05-30-2024 Epithelial cells.squamous LM Ql (Urine sed) 0-5 SEEN /hpf 5-10 [facility] Total proteinOrdered By: Diane Perdomo on 05-30-2024 Protein [Mass/Vol] 7.8 g/dL 5.9-8.4 [facility] Urinalysis, Completeon 05-30 BACTERIA 3+ /hpf Normal None Seen [facility] Comment on above: Order Comment: CLEAN CATCH Performed By: #### L 100.0100, L500.2500 #### [facility] [address] [place], [address] EPI,SQUAMOUS 0-5 SEEN Normal 5-10 [facility] Comment on above: Order Comment: CLEAN CATCH Performed By: #### L 100.0100, L500.2500 #### [facility] [address] [place], [address] RBC 10-25 SEEN Normal 0-5 [facility] Comment on above: Order Comment: CLEAN CATCH Performed By: #### L 100.0100, L500.2500 #### [facility] [address] [place], [address] WBC >100 SEEN Normal 0-5 [facility] Comment on above: Order Comment: CLEAN CATCH Performed By: #### L 100.0100, L500.2500 #### [facility] [address] [place], [address] Mucus Ql (Urine sed) 0 SEEN Normal [facility] Comment on above: Order Comment: CLEAN CATCH Performed By: #### L 100.0100, L500.2500 #### [facility] [address] [place], [address] Urine blood detectionOrdered By: Rob Perdomo on 05-30-2024 Urine Occult Blood 150 /ul High Negative [facility] Urine clarityOrdered By: Diane Perdomo on 05-30-2024 Clarity (U) Cloudy Clear [facility] Urine color determinationOrd ered By: Rob Perdomo on 05-30-2024 Color (U) Yellow Yellow [facility] Urine cultureOrdered By: Diane Perdomo on 05-30-2024 Bacteria identified Cx Nom (U) Klebsiella pneumoniae sp pneum Abnormal [facility] Urine glucose detectionOrder ed By: Rob Perdomo on 05-30-2024 Glucose Ql (U) Normal mg/dl Normal [facility] Urine leukocyte esterase det ection by dipstickOrdered By: Rob Perdomo on 05-30-2024 Leukocyte esterase Test strip Ql (U) 500 /ul High Negative [facility] Urine pHOrdered By: Rob valladares on 05-30-2024 pH (U) 6.0 [pH] 5.0 - 8.0 [facility] Urine sediment bacteria coun t by microscopy (number/high power field)Ordered By: Rob Perdomo on 05-30-2024 Bacteria LM.HPF (Urine sed) [#/Area] 3 /[HPF] None Seen [facility] Urine specific gravity measu rementOrdered By: Rob Perdomo on 05-30-2024 Specific gravity (U) [Rel density] 1.020 1.002-1.03 0 [facility] Urine urobilinogen measureme ntOrdered By: Rob Perdomo on 05-30-2024 Urobilinogen Ql (U) 1 mg/dl High Normal [facility] Urobilinogen Ql (U)Ordered B y: Rob Perdomo on 05-30-2024 Urobilinogen (U) [Mass/Vol] 1 mg/dL High Normal [facility] White blood cell (WBC) count Ordered By: Rob Perdomo on 05-30-2024 WBC (Bld) [#/Vol] 15.9 10*3/uL High 4.4-11.0 [facility] White blood cell countOrdere d By: Rob Moraleschristelle on 05-30-2024 Urine WBC >100 SEEN /hpf 0-5 [facility] White blood cell count >100 SEEN /hpf 0-5 [facility] Urine Cultureon 05-14-2024 [facility]RC Klebsiella pneumonia e sp pneum [place] Count 80,000-100,000 Klebsiella pneumoniae sp pneum: REACTION Ampicillin Islt GREGORIA >=32 Ampicillin+Sulbac Islt GREGORIA 4 S Cefepime Islt GREGORIA <=0.12 S cefTRIAXone Islt GREGORIA <=0.25 S Ciprofloxacin Islt GREGORIA 0.12 S B-Lactamase Extended Susc Islt NEG Gentamicin Islt GREG[place]IA <=1 S levoFLOXacin Islt GREGORIA <=0.12 S Meropenem Islt GREGORIA <=0.25 S Nitrofurantoin Islt GREGORIA 64 I Pip+Tazo Islt GREGORIA 8 S TMP SMX Islt GREGORIA <=20 S Normal [facility] Comment on above: Performed By: #### M 100.2200 ####[facility] [id number] [facility] [place], [place], [address] Abdomen/Pelvis W IV Cont ONL Yon 05-12-2024 Abdomen/Pelvis W IV Cont ONLY [facility] Services [address] [place], [place] [address] Abdomen/Pelvis W IV Cont ONLY MR#: [id number] Acct: [id number] Name: TOPETELAKEISHA J Rep #: [id number] : 1970 F 53 From: Yamilet Collado MD PCP: Desier Lanier, SPEECH COACH-C Status: REG ER Study: Abdomen/Pelvis W IV Cont ONLY Date of Exam: Exam# [id number] Ordering Dr: Micky Keith DO PROCEDURE: ABDOMEN/PELVIS W IV CONT ONLY REASON FOR EXAM: RLQ PAIN TECHNIQUE: Abdomen and pelvis CT with intravenous contrast. Coronal and sagittal reformatted images IV CONTRAST: 92 cc Isovue 370 COMPARISON: 12/01/2023 FINDINGS: Lung bases: Clear Liver: Unremarkable. Gallbladder: Absent. Spleen: Unremarkable. Pancreas: Unremarkable. Adrenals: Unremarkable. Kidneys: Previously noted stone in the right renal pelvis is now at the proximal ureter measuring around 6 mm in presenting axis axial 59, coronal 65 and sagittal 73. Based on size may not spontaneously pass the UVJ. There is associated mild right hydronephrosis. Symmetric appearing nephrograms without perinephric stranding or fluid collection. Mild urothelial thickening of the lower right renal pelvis and proximal ureter may be reactive, inflammatory or infectious.. Bladder: Unremarkable. Reproductive Organs: Mildly enlarged lobular possibly fibroid uterus again noted. There is now a 3.2 cm cystic focus right ovary. Left ovary appears within limits. No free fluid.. Bowel: No bowel dilation, bowel wall thickening or free air. Appendix: Status post apparent appendectomy. Lymph nodes: No suspicious lymph node enlargement. Vasculature: Major vascular structures are unremarkable. Peritoneum / Retroperitoneum: No ascites. No free air. Bones: Bilateral nonacute L5 spondylolysis again noted. Ankylosing spondylitis visualized mid to lower thoracic spine and L1-2 again noted.. T12-L1 spondylosis/discogenic change again noted CT/Abdomen/Pelvis W IV Cont ONLY IMPRESSION: Previously noted stone in the right renal pelvis is now at the proximal ureter measuring around 6 mm in presenting axis. Based on size may not spontaneously pass the UVJ. There is associated mild right hydronephrosis. Symmetric appearing nephrograms without perinephric stranding or fluid collection. Mild urothelial thickening of the lower right renal pelvis and proximal ureter may be reactive, inflammatory or infectious. There is now a 3.2 cm cystic focus right ovary. May follow-up with pelvic ultrasound in 1-2 menstrual cycles. One or more dose reduction techniques were used (e.g., Automated exposure control, adjustment of the mA and/or kV according to patient size, use of iterative reconstruction technique). Reading Location: [id number] CC: CHRISSY Lanier; Micky Keith DO Hadoop Architect: Signed Normal [facility] Absolute lymphocyte countOrd ered By: Micky Keith on 05-12-2024 Lymphocytes Auto (Unsp spec) [#/Vol] 3.56 10*3/uL 0.83-4.51 [facility] Absolute neutrophil countOrd ered By: Micky Keith on 05-12-2024 Neutrophils (Bld) [#/Vol] 9.9 10*3/uL High 2.0-7.7 [facility] Anion gap in Serum or Plasma Ordered By: Micky Keith on 05-12-2024 Anion gap [Moles/Vol] 15 mmol/L 5-15 [facility] Automated blood erythrocyte countOrdered By: Micky Keith on 05-12-2024 RBC (Bld) [#/Vol] 4.07 10*6/uL Low 4.2-5.4 [facility] Comment on above: Performed By: #### L 100.0100, L500.2500 #### [facility] Laboratory [address] [place], [address] Automated blood hematocrit ( percentage)Ordered By: Micky Keith on 05-12-2024 Hematocrit (Bld) [Volume fraction] 32.0 % Low 37-47 [facility] Comment on above: Performed By: #### L 100.0100, L500.2500 #### [facility] Laboratory [address] [place], [address] Automated lymphocyte count a s percentage of total leukocytesOrdered By: Micky Keith on 05-12-2024 Lymphocytes/100 WBC Auto (Unsp spec) 23.6 % 19- [facility] Lymphocytes/100 WBC (Bld) 23.6 % Normal - [facility] Comment on above: Performed By: #### L 100.0100, L500.2500 #### [facility] Laboratory [address] [place], [address] BUN/creatinine ratioOrdered By: Micky Keith on 05-12-2024 Urea nitrogen/Creatinine [Mass ratio] 12.8 mg/mg 10-20 [facility] Basic Metabolic Profile (BMP )on 05-12-2024 BUN/CRE 12.8 RATIO Normal 10-20 [facility] Comment on above: Performed By: #### L 100.0100, L500.2500 #### [facility] Laboratory [address] [place], [address] ECRCL 83.72 ml/min Normal 50-250 [facility] Comment on above: Performed By: #### L 100.0100, L500.2500 #### [facility] Laboratory [address] [place], [address] GAP 15 Normal 5-15 [facility] Comment on above: Performed By: #### L 100.0100, L500.2500 #### [facility] Laboratory [address] [place], [address] Basic Metabolic Profile (BMP )Ordered By: Micky Keith on 05-12-2024 GFR/1.73 sq M.predicted among non-blacks MDRD (S/P/Bld) [Vol rate/Area] 86 mL/min/{1.73_m2} >60 [facility] Comment on above: Result Comment: mL/m in/1.73m2 CKD-EPI Creatinine Equation (2020) Performed By: #### L 100.0100, L500.2500 #### [facility] Laboratory [address] [place], [address] mL/min/1.73m2 CKD-EP I Creatinine Equation (2020) Basophil percentageOrdered B y: Micky Keith on 05-12-2024 Basophils/100 WBC (Bld) 0.3 % 0-1 [facility] Comment on above: Performed By: #### L 100.0100, L500.2500 #### [facility] Laboratory [address] [place], [address] Bilirubin Test strip Ql (U)O rdered By: Micky Keith on 05-12-2024 Bilirubin Ql (U) Negative Negative [facility] Bilirubin directOrdered By: Micky Keith on 05-12-2024 Bilirubin.direct [Mass/Vol] mg/dL 0.00-0.30 [facility] Bilirubin, totalOrdered By: Micky Keith on 05-12-2024 Bilirubin [Mass/Vol] mg/dL 0.00-1.30 [facility] Bilirubin.direct [Mass/Vol]O rdered By: Micky Keith on 05-12-2024 Direct Bilirubin < 0.08 mg/dL 0.00-0.30 [facility] CBC W/Diff, Automatedon 04-29 Absolute Lymph 3.56 X10 3/uL Normal 0.83-4.51 [facility] Comment on above: Performed By: #### L 100.0100, L500.2500 #### [facility] Laboratory [address] [place], [address] Absolute Neut 9.9 X10 3/uL High 2.0-7.7 [facility] Comment on above: Performed By: #### L 100.0100, L500.2500 #### [facility] Laboratory [address] [place], [address] IG% 0.900 Normal 0.0-0.9 [facility] Comment on above: Result Comment: IG% - Immature Granulocytes (promyelocytes, myelocytes and metamyelocytes) > 1% indicates that a LEFT SHIFT is Present. Performed By: #### L 100.0100, L500.2500 #### [facility] Laboratory [address] [place], [address] Nucleated RBC (Bld) [#/Vol] 0 10*3/uL Normal 0-5 [facility] Comment on above: Performed By: #### L 100.0100, L500.2500 #### [facility] Laboratory [address] [place], [address] RDW SD 47.3 fl High 35.1-43.9 [facility] Comment on above: Performed By: #### L 100.0100, L500.2500 #### [facility] Laboratory [address] [place], [address] Carbon dioxide, total [Moles /volume] in Central venous bloodOrdered By: Micky Keith on 05-12-2024 CO2 [Moles/Vol] 20.8 mmol/L Low 21.0-32.0 [facility] Comment on above: Performed By: #### L 100.0100, L500.2500 #### [facility] Laboratory [address] [place], [address] Chest 1 View (Portable)on Chest 1 View (Portable) [facility] Imaging Services [address] [place] [address] Chest 1 View (Portable) MR#: [id number] Acct: [id number] Name: LAKEISHA TOPETE Rep #: [id number] : 1970 F 53 From: Yamilet Collado MD PCP: CHRISSY Alcantara Status: REG ER Study: Chest 1 View (Portable) Date of Exam: 05/12/24 Exam# [id number] Ordering Dr: Micky Keith DO PROCEDURE: CHEST 1 VIEW (PORTABLE) N/A REASON FOR EXAM: COUGH TECHNIQUE: Frontal view of the chest. COMPARISON: 04/28/2024 FINDINGS: The lungs are clear. The cardiac and mediastinal contours are within limits. The visualized osseous structures appear within limits. RAD/Chest 1 View (Portable) IMPRESSION: No evidence of acute disease. Reading Location: [facility] CC: SPEECH COACH-C Desire Lanier; Micky Keith DO Hadoop Architect: Signed Normal [facility] Chloride assayOrdered By: Marleni Keith on 05-12-2024 Chloride [Moles/Vol] 102 mmol/L 98-108 [facility] Comment on above: Performed By: #### L 100.0100, L500.2500 #### [facility] Laboratory [address] [place], [address] Emergency Department Summary on 05-12-2024 Emergency Department Summary [facility] Medical Records Department [address] [place] [address] Emergency Department Summary 05/12/24 MR#: [id number] Acct: [id number] Name: LAKEISHA TOPETE Rep #: [id number] : 1970 53 From: Micky Keith DO PCP: SUSIE AlcantaraC Status:REG ER Location: ED HPI History of Present Illness Chief Complaint: Nausea/Vomiting/Diarrhea Informant: patient Narrative Narrative: Patient is a 53-year-old female with past medical history of hypertension hyperlipidemia [id number] diabetes and bipolar disorder. She reports that she was recently sick with congestion and cough over the past 2 weeks which seems to be improving. However today she had generalized abdominal discomfort slightly greater on the right with bouts of nausea vomiting and diarrhea. She denies any known sick contact. She reports that she has a history of a kidney stone on the right and has concerned that the stone may be worsening. She reports she has not been able to sleep secondary to the pain and recurrent symptoms and therefore comes in for evaluation [facility] Medical History Restless legs Anxiety Depression Sleep apnea Irregular heart beat Seizures TIA (transient ischemic attack) Hyperlipidemia Bipolar 1 disorder Hypertension Diabetes Asthma Home Medications ???Medication ???Instructions ???Recorded ???Last Taken ???Type fluoxetine 20 mg capsule 20 mg PO DAILY depression 07/18/18 12/01/23 History metformin 500 mg tablet 500 mg PO BID #20 tabs 05/25/22 Rx budesonide-formoterol HFA 80 2 puff inhalation BID #10.2 grams 01/04/23 12/01/23 Rx mcg-4.5 mcg/actuation aerosol inhaler (Symbicort) ibuprofen 800 mg tablet 800 mg PO TID PRN pain #20 tabs 12/01/23 Rx epinephrine 0.3 mg/0.3 mL 0.3 mg IM UD PRN anaphylaxis 11/30 Unknown History injection, auto-injector glipizide 5 mg tablet, extended 5 mg PO DAILY 12/01/23 12/01/23 Hi story release 24 hr norethindrone acetate 5 mg tablet 5 mg PO BID PRN vag bleeding 04/2412/02/23 History acetaminophen 500 mg tablet 500 mg PO Q6H PRN pain 12/02/23 History albuterol sulfate 90 mcg/actuation 1 - 2 puff inhalation Q4H PRN Unknown History aerosol inhaler (Ventolin HFA) Wheezing aripiprazole 5 mg tablet 5 mg PO DAILY 12/02/23 12/01/23 Hi story losartan 25 mg tablet 25 mg PO DAILY 12/02/23 12/01/23 H istory oxybutynin chloride 5 mg 5 mg PO DAILY 12/02/23 12/01/23 Hi story tablet,extended release 24 hr simvastatin 80 mg tablet 80 mg PO QHS 12/02/23 12/01/23 His tory cephalexin 500 mg capsule 500 mg PO TID 7 days #21 caps 04/29 06/23 Unknown Rx ketorolac 10 mg tablet 10 mg PO 4X/DAY PRN pain 5 days Unknown Rx #20 tabs ondansetron 4 mg disintegrating 4 mg PO TID PRN nausea and 5 Unknown Rx tablet vomiting #21 tabs oxycodone-acetaminophen 5 mg-325 1 tab PO Q6H PRN pain 3 days #12 0 05/12/24 Unknown Rx mg tablet (Percocet) tabs tamsulosin 0.4 mg capsule (Flomax) 0.4 mg PO DAILY 14 days #14 caps 05/12/24 Unknown Rx Allergy/AdvReac Type Severity Reaction Status Date / Time Penicillins AdvReac Vomiting Verified 05/12/24 01:55 Surgical History S/P dilatation and curettage Hx of cholecystectomy Hx of breast surgery Hx of tubal ligation Social History Smoking Status: Current some day smoker tobacco type: e-cigarettes ROS ROS ED Constitutional Constitutional ED: Denies chills or fever(s) Eyes Eyes: Denies blurry vision or change in vision ENT ENT ED: Denies sore throat Cardiovascular Cardiovascular: Denies chest pain Respiratory/Chest Respiratory/Chest: Reports cough; Denies dyspnea Gastrointestinal Gastrointestinal: Reports abdominal pain, diarrhea, nausea and vomiting Genitourinary Genitourinary ED: Denies dysuria or hematuria Musculoskeletal Musculoskeletal: Reports back pain Integumentary Denies rash Neurologic Neurologic: Denies headache(s) Hematologic/Lymphatic Hematologic/Lymphatic: Denies easy bleeding or easy bruising EXAM Physical Exam Const Vital Signs: 05/12/24 01:55 05/12/24 03:55 Temperature 97.8 F Temperature Source Oral Pulse Rate 100 75 Respiratory Rate 18 18 Blood Pressure 183/96 H 160/71 H Blood Pressure Mean 125 100 Pulse Ox 98 Oxygen Delivery Method Room Air Positive well nourished, well developed and obese General Appearance ED: well developed; Negative for pallor Nutritional Appearance: obese HEENT Reports dry mucous membranes HEENT Narrative: No tongue or lip swelling no oral lesions no airway edema or compromise (more content not included)... Normal [facility] Eosinophil percentageOrdered By: Micky Keith on 05-12-2024 Eosinophils/100 WBC (Bld) 1.8 % 0-5 [facility] Comment on above: Performed By: #### L 100.0100, L500.2500 #### [facility] Laboratory [address] [place], [place], [id number] Epithelial cells.squamous LM Ql (Urine sed)Ordered By: Micky Keith on 05-12-2024 Epithelial cells.squamous LM.HPF (Urine sed) [#/Area] 5 /[HPF] 5-10 [facility] Erythrocyte distribution wid th ratioOrdered By: Micky Keith on 05-12-2024 Erythrocyte distribution width (RBC) [Ratio] 17.0 % High 11.6-14.6 [facility] Comment on above: Performed By: #### L 100.0100, L500.2500 #### [facility] Laboratory [address] [place], [place], [id number] Erythrocyte distribution wid th standard deviationOrdered By: Micky Keith on 05-12-2024 Erythrocyte distribution width (RBC) [Entitic vol] 47.3 fL High 35.1-43.9 [facility] Erythrocyte distribution width (RBC) [Ratio] 47.3 fl High 35.1-43.9 [facility] Estimation of creatinine skip aranceOrdered By: Micky Keith on 05-12-2024 Estimated Creatinine Clearance Calc 83.72 ml/min 50-250 [facility] GFR/1.73 sq M.predicted yesenia g non-blacks MDRD (S/P/Bld) [Vol rate/Area]Ordered By: Micky Keith on 05-12-2024 Estimated GFR (MDRD) Non-Af Amer 86 >60 [facility] Comment on above: mL/min/1.73m2 CKD-EP I Creatinine Equation (2020) Glucose Ql (U)Ordered By: Marleni Keith on 05-12-2024 Urine Glucose (UA) Normal mg/dl Normal [facility] Hemoglobin measurementOrdere d By: Micky Keith on 05-12-2024 Hemoglobin (Bld) [Mass/Vol] 9.7 g/dL Low 12.0-15.0 [facility] Comment on above: Performed By: #### L 100.0100, L500.2500 #### [facility] Laboratory [address] [place], [place] [address]all [facility] [place], [address] Immature granulocytes/100 WB C Auto (Bld)Ordered By: Micky Keith on 05-12-2024 Immature granulocytes/100 WBC (Bld) 0.900 % 0.0-0.9 [facility] Comment on above: IG% - Immature Granu locytes (promyelocytes, myelocytes and metamyelocytes) > 1% indicates that a LEFT SHIFT is Present. Ketones Test strip Ql (U)Ord ered By: Micky Keith on 05-12-2024 Ketones Ql (U) Negative Negative [facility] Lipase measurementOrdered By : Micky Keith on 05-12-2024 Lipase [Catalytic activity/Vol] 31 U/L 13-75 [facility] Comment on above: Please note:LIPASE r evised reference range effective 22. New Lipase methodology. Expected to produce lower values than the previous assay method. NEW Reference Range: 13 - 75 U/L Result Comment: Susana valentin note: LIPASE revised reference range effective 22. New Lipase methodology. Expected to produce lower values than the previous assay method. NEW Reference Range: 13 - 75 U/L Performed By: #### L 100.0100, L500.2500 #### [facility] Laboratory [address] [place], [address] Liver Profileon 05-12-2024 ALK PHOS 77 U/L Normal 35-104 [facility] Comment on above: Performed By: #### L 100.0100, L500.2500 #### [facility] Laboratory [address] [place], [address] D BILI < 0.08 Normal 0.00-0.30 [facility] Comment on above: Performed By: #### L 100.0100, L500.2500 #### [facility] Laboratory [address] [place], [address] T BILI < 0.15 Normal 0.00-1.30 [facility] Comment on above: Performed By: #### L 100.0100, L500.2500 #### [facility] Laboratory [address] [place], [address] T PROT 6.8 g/dL Normal 5.9-8.4 [facility] Comment on above: Performed By: #### L 100.0100, L500.2500 #### [facility] Laboratory [address] [place], [address] Liver ProfileOrdered By: Keith Keith on 05-12-2024 AST [Catalytic activity/Vol] 14 U/L <32 [facility] Comment on above: Performed By: #### L 100.0100, L500.2500 #### [facility] Laboratory [address] [place], [address] Lymphocytes Auto (Unsp spec) [#/Vol]Ordered By: Micky Andes on 05-12-2024 Lymphocytes (Bld) [#/Vol] 3.56 10*3/uL 0.83-4.51 [facility] MCV (mean corpuscular volume ) determinationOrdered By: Micky Keith on 05-12-2024 MCV (RBC) [Entitic vol] 78.6 fL Low 81-99 [facility] Comment on above: Performed By: #### L 100.0100, L500.2500 #### [facility] Laboratory [address] [facility] [address] Mean corpuscular hemoglobin (MCH) determinationOrdered By: Micky Keith on 05-12-2024 MCH (RBC) [Entitic mass] 23.8 pg Low 27.0-32.0 [facility] Comment on above: Performed By: #### L 100.0100, L500.2500 #### [facility] Laboratory [address] [place], [address] Mean corpuscular hemoglobin concentration (MCHC) determinationOrdered By: Micky Keith on 05-12-2024 MCHC (RBC) [Mass/Vol] 30.3 g/dL Low 32-36 [facility] Comment on above: Performed By: #### L 100.0100, L500.2500 #### [facility] Laboratory [address] [place], [address] Mean platelet volume determi nationOrdered By: Micky Keith on 05-12-2024 Platelet mean volume (Bld) [Entitic vol] 10.1 fL 6.2-12.0 [facility] Comment on above: Performed By: #### L 100.0100, L500.2500 #### [facility] Laboratory [address] [facility] [place], [address] Microscopic analysis of urin e for red blood cells (RBC)Ordered By: Micky Keith on 05-12-2024 Microscopic analysis of urine for red blood cells (RBC) 0 SEEN /hpf 0-5 [facility] Urine RBC 0 SEEN /hpf 0-5 [facility] Monocyte percentageOrdered B y: Micky Keith on 05-12-2024 Monocytes/100 WBC (Bld) 7.9 % 0-10 [facility] Comment on above: Performed By: #### L 100.0100, L500.2500 #### [facility] Laboratory [address] [facility] [place], [address] Mucus LM Ql (Urine sed)Order ed By: Micky Keith on 05-12-2024 Mucus Ql (Urine sed) 2+ /hpf [facility] Neutrophil percentageOrdered By: Micky Keith on 05-12-2024 Neutrophils/100 WBC (Bld) 65.5 % 47-70 [facility] Comment on above: Performed By: #### L 100.0100, L500.2500 #### [facility] Laboratory [address] [facility] [place], [place], [id number] Nitrite Test strip Ql (U)Ord ered By: Micky Keith on 05-12-2024 Nitrite Ql (U) Positive High Negative [facility] Nucleated red blood cell per centageOrdered By: Micky Keith on 05-12-2024 Nucleated RBC/100 WBC (Bld) [Ratio] 0 % 0-5 [facility] Platelet countOrdered By: Marleni Keith on 05-12-2024 Platelets (Bld) [#/Vol] 303 10*3/uL 150-450 [facility] Comment on above: Performed By: #### L 100.0100, L500.2500 #### [facility] Laboratory [address] [facility] [place], [address] Potassium measurement (mass/ volume)Ordered By: Micky Keith on 05-12-2024 Potassium (Unsp spec) [Mass/Vol] 3.2 mmol/L Low 3.3-5.1 [facility] Potassium [Moles/Vol] 3.2 mmol/L Low 3.3-5.1 [facility] Comment on above: Performed By: #### L 100.0100, L500.2500 #### [facility] Laboratory [address] [place], [address] ,Urineon 05-12-2024 Beta HCG ( test) Ql (U) Negative Normal [facility] Comment on above: Result Comment: Very dilute urine specimens, as indicated by a low specific gravity, may not contain insurance verification representative levels of hCG. If is still suspected, a first morning urine specimen should be collected 48 hours later and tested. Performed By: #### L 100.0100, L500.2500 #### [facility] Laboratory [address] [place], [address] Protein Test strip Ql (U)Ord ered By: Micky Keith on 05-12-2024 Protein Ql (U) 15 mg/dl High Negative [facility] Serum creatinine measurement (mass/volume)Ordered By: Micky Keith on 05-12-2024 Creatinine [Mass/Vol] 0.82 mg/dL 0.70-1.20 [facility] Comment on above: Performed By: #### L 100.0100, L500.2500 #### [facility] Laboratory [address] [place], [address] Serum globulin measurementOr dered By: Micky Keith on 05-12-2024 Globulin (S) [Mass/Vol] 3.2 g/dL 2.2-4.2 [facility] Comment on above: Performed By: #### L 100.0100, L500.2500 #### [facility] Laboratory [address] [place], [address] Serum glucose measurement (m ass/volume)Ordered By: Micky Keith on 05-12-2024 Glucose [Mass/Vol] 191 mg/dL High 70-99 [facility] Comment on above: Performed By: #### L 100.0100, L500.2500 #### [facility] Laboratory [address] [place], [address] Serum or plasma alanine khanna otransferase (ALT) measurementOrdered By: Micky Keith on 05-12-2024 ALT [Catalytic activity/Vol] 12 U/L <35 [facility] Comment on above: Performed By: #### L 100.0100, L500.2500 #### [facility] Laboratory [address] [place], [address] Serum or plasma albumin sulma urement (mass/volume)Ordered By: Micky Keith on 05-12-2024 Albumin [Mass/Vol] 3.6 g/dL 3.5-5.0 [facility] Comment on above: Performed By: #### L 100.0100, L500.2500 #### [facility] Laboratory [address] [place], [address] Serum or plasma alkaline joey sphatase measurementOrdered By: Micky Keith on 05-12-2024 ALP [Catalytic activity/Vol] 77 U/L 35-104 [facility] Serum or plasma calcium sulma urement (mass/volume)Ordered By: Micky Keith on 05-12-2024 Calcium [Mass/Vol] 8.7 mg/dL 7.6-11.0 [facility] Comment on above: Performed By: #### L 100.0100, L500.2500 #### [facility] Laboratory [address] [place], [address] Serum or plasma urea nitroge n measurement (mass/volume)Ordered By: Micky Keith on 05-12-2024 Urea nitrogen [Mass/Vol] 11 mg/dL 4-19 [facility] Comment on above: Performed By: #### L 100.0100, L500.2500 #### [facility] Laboratory [address] [place], [address] Sodium levelOrdered By: Kyaw Keith on 05-12-2024 Sodium [Moles/Vol] 137 mmol/L 133-145 [facility] Comment on above: Performed By: #### L 100.0100, L500.2500 #### [facility] Laboratory [address] [place], [address] Squamous epithelial cells de tection in urine sediment by light microscopyOrdered By: Micky Keith on 05-12-2024 Epithelial cells.squamous LM Ql (Urine sed) 5-10 SEEN /hpf 5-10 [facility] Total proteinOrdered By: Keith Keith on 05-12-2024 Protein [Mass/Vol] 6.8 g/dL 5.9-8.4 [facility] Urinalysis, Completeon 05-12 BACTERIA 3+ /hpf Normal None Seen [facility] Comment on above: Order Comment: CLEAN CATCH Performed By: #### L 100.0100, L500.2500 #### [facility] Laboratory [address] [place], [address] EPI,SQUAMOUS 5-10 SEEN Normal 5-10 [facility] Comment on above: Order Comment: CLEAN CATCH Performed By: #### L 100.0100, L500.2500 #### [facility] Laboratory [address] [place], [address] Mucus Ql (Urine sed) 2+ /hpf Normal [facility] Comment on above: Order Comment: CLEAN CATCH Performed By: #### L 100.0100, L500.2500 #### [facility] Laboratory [address] [place], [address] RBC 0 SEEN Normal 0-5 [facility] Comment on above: Order Comment: CLEAN CATCH Performed By: #### L 100.0100, L500.2500 #### [facility] Laboratory [address] [place], [address] WBC >100 SEEN Normal 0-5 [facility] Comment on above: Order Comment: CLEAN CATCH Performed By: #### L 100.0100, L500.2500 #### [facility] Laboratory [address] [place], [address] BILIRUBIN URINE Negative Normal Negative [facility] Comment on above: Order Comment: CLEAN CATCH Performed By: #### L 100.0100, L500.2500 #### [facility] Laboratory [address] [place], [address] Clarity (U) Clear Normal Clear [facility] Comment on above: Order Comment: CLEAN CATCH Performed By: #### L 100.0100, L500.2500 #### [facility] Laboratory [address] [place], [address] Color (U) Straw Normal Yellow [facility] Comment on above: Order Comment: CLEAN CATCH Performed By: #### L 100.0100, L500.2500 #### [facility] Laboratory [address] [place], [address] GLUCOSE, UR Normal Normal Normal [facility] Comment on above: Order Comment: CLEAN CATCH Performed By: #### L 100.0100, L500.2500 #### [facility] Laboratory [address] [place], [address] KETONE UR Negative Normal Negative [facility] Comment on above: Order Comment: CLEAN CATCH Performed By: #### L 100.0100, L500.2500 #### [facility] Laboratory [address] [place], [address] LEUK ESTERASE 500 /ul Abnormal Negative [facility] Comment on above: Order Comment: CLEAN CATCH Performed By: #### L 100.0100, L500.2500 #### [facility] Laboratory [address] [place], [address] Nitrite Ql (U) Positive Abnormal Negative [facility] Comment on above: Order Comment: CLEAN CATCH Performed By: #### L 100.0100, L500.2500 #### [facility] Laboratory [address] [place], [address] OCCULT BLOOD-UR 25 /ul Abnormal Negative [facility] Comment on above: Order Comment: CLEAN CATCH Performed By: #### L 100.0100, L500.2500 #### [facility] Laboratory [address] [place], [address] pH UR 6.5 Normal 5.0 - 8.0 [facility] Comment on above: Order Comment: CLEAN CATCH Performed By: #### L 100.0100, L500.2500 #### [facility] Laboratory [address] [place], [address] PROT DIPSTX 15 mg/dl Abnormal Negative [facility] Comment on above: Order Comment: CLEAN CATCH Performed By: #### L 100.0100, L500.2500 #### [facility] Laboratory [address] [place], [address] SP.GR. DIPSTX 1.015 Normal 1.002-1.03 0 [facility] Comment on above: Order Comment: CLEAN CATCH Performed By: #### L 100.0100, L500.2500 #### [facility] Laboratory [address] [place], [address] UROBILI Normal Normal Normal [facility] Comment on above: Order Comment: CLEAN CATCH Performed By: #### L 100.0100, L500.2500 #### [facility] Laboratory [address] [place], [address] Urine blood detectionOrdered By: Micky Keith on 05-12-2024 Urine Occult Blood 25 /ul High Negative [facility] Urine clarityOrdered By: Keith Keith on 05-12-2024 Clarity (U) Clear Clear [facility] Urine color determinationOrd ered By: Micky eKith on 05-12-2024 Color (U) Straw Yellow [facility] Urine cultureOrdered By: Keith Keith on 05-12-2024 Bacteria identified Cx Nom (U) Klebsiella pneumoniae sp pneum Abnormal [facility] Urine glucose detectionOrder ed By: Micky Keith on 05-12-2024 Glucose Ql (U) Normal mg/dl Normal [facility] Urine leukocyte esterase det ection by dipstickOrdered By: Micky Keith on 05-12-2024 Leukocyte esterase Test strip Ql (U) 500 /ul High Negative [facility] Urine pHOrdered By: Micky montalvo on 05-12-2024 pH (U) 6.5 [pH] 5.0 - 8.0 [facility] Urine testOrdered By: Micky Keith on 05-12-2024 HCG ( test) Ql (U) Negative [facility] Comment on above: Very dilute urine sp ecimens, as indicated by a low specificgravity, may not contain insurance verification representative levels of hCG. If is still suspected, a first morning urinespecimen should be collected 48 hours later and tested. Urine sediment bacteria coun t by microscopy (number/high power field)Ordered By: Micky Keith on 05-12-2024 Bacteria LM.HPF (Urine sed) [#/Area] 3 /[HPF] None Seen [facility] Urine specific gravity measu rementOrdered By: Micky Keith on 05-12-2024 Specific gravity (U) [Rel density] 1.015 1.002-1.03 0 [facility] Urine urobilinogen measureme ntOrdered By: Micky Keith on 05-12-2024 Urobilinogen Ql (U) Normal mg/dl Normal [facility] Urobilinogen Ql (U)Ordered B y: Micky Keith on 05-12-2024 Urine Urobilinogen Normal mg/dl Normal [facility] White blood cell (WBC) count Ordered By: Micky Keith on 05-12-2024 WBC (Bld) [#/Vol] 15.1 10*3/uL High 4.4-11.0 [facility] Comment on above: Performed By: #### L 100.0100, L500.2500 #### [facility] Laboratory [address] [facility] [place], [place], [id number] White blood cell countOrdere d By: Micky Keith on 05-12-2024 Urine WBC >100 SEEN /hpf 0-5 [facility] White blood cell count >100 SEEN /hpf 0-5 [facility] Chest PA and Lateralon 04-28 Chest PA and Lateral [facility] [address] [place], [place] [id number] Chest PA and Lateral MR#: [id number] Acct: [id number] Name: LAKEISHA TOPETE Rep #: [id number] : 1970 F 53 From: Rob Mcknight MD PCP: CHRISSY Alcantara Status: [facility] ER Study: Chest PA and Lateral Date of Exam: 04/28/24 Exam# [id number] Ordering Dr: Radha Barreto DO PROCEDURE: CHEST PA AND LATERAL REASON FOR EXAM: Cough TECHNIQUE: Frontal and lateral views of the chest. COMPARISON: 05/03/2023 FINDINGS: Lungs: Lungs clear of pneumonia and congestion. Pleura: No pleural effusions, thickening, or pneumothorax. Heart: Normal in size and configuration. Mediastinum/Joseline: Unremarkable. Great vessels: Unremarkable. Bones/soft tissues: Unremarkable. RAD/Chest PA and Lateral IMPRESSION: No active cardiopulmonary disease.. Reading Location: [place] [address] CC: SPEECH COACH-C Desire Lanier; Dr. Radha Barreto DO Hadoop Architect: Signed Normal [facility] Emergency Department Summary on 04-28-2024 Emergency Department Summary [facility] Medical Records Department [address] [place] [address] Emergency Department Summary 04/28/24 MR#: [id number] Acct: [id number] Name: LAKEISHA TOPETE Rep #: [id number] : 1970 53 From: Radha Barreto DO PCP: CHRISSY Alcantara Status:[facility] ER Location: ED HPI History of Present Illness Chief Complaint: General Illness Informant: patient Narrative Narrative: 53-year-old female presenting to the emergency room with a chief complaint of cough. Patient states that 1 week ago she began to feel ill with a cough. She developed rhinorrhea and yesterday went to see urgent care where they diagnosed with a sinus infection. She states that she feels worse today. She notes now she is having chills but no fever vomiting a bit of a sore throat worsening cough and occasionally wheezing. She states she has a history of asthma and chronic bronchitis. She states she is a non-smoker. Current asthma therapy includes Combivent and a rescue inhaler. Her significant other is also ill. [facility] Medical History Restless legs Anxiety Depression Sleep apnea Irregular heart beat Seizures TIA (transient ischemic attack) Hyperlipidemia Bipolar 1 disorder Hypertension Diabetes Asthma Home Medications ???Medication ???Instructions ???Recorded ???Last Taken ???Type fluoxetine 20 mg capsule 20 mg PO DAILY depression 07/18/18 12/01/23 History metformin 500 mg tablet 500 mg PO BID #20 tabs 05/25/22 Rx budesonide-formoterol HFA 80 2 puff inhalation BID #10.2 grams 01/04/23 12/01/23 Rx mcg-4.5 mcg/actuation aerosol inhaler (Symbicort) ibuprofen 800 mg tablet 800 mg PO TID PRN pain #20 tabs 12/01/23 Rx epinephrine 0.3 mg/0.3 mL 0.3 mg IM UD PRN anaphylaxis 11/30 Unknown History injection, auto-injector glipizide 5 mg tablet, extended 5 mg PO DAILY 12/01/23 12/01/23 Hi story release 24 hr norethindrone acetate 5 mg tablet 5 mg PO BID PRN vag bleeding 04/2412/02/23 History acetaminophen 500 mg tablet 500 mg PO Q6H PRN pain 12/02/23 History albuterol sulfate 90 mcg/actuation 1 - 2 puff inhalation Q4H PRN Unknown History aerosol inhaler (Ventolin HFA) Wheezing aripiprazole 5 mg tablet 5 mg PO DAILY 12/02/23 12/01/23 Hi story losartan 25 mg tablet 25 mg PO DAILY 12/02/23 12/01/23 H istory oxybutynin chloride 5 mg 5 mg PO DAILY 12/02/23 12/01/23 Hi story tablet,extended release 24 hr simvastatin 80 mg tablet 80 mg PO QHS 12/02/23 12/01/23 His tory doxycycline monohydrate 100 mg 100 mg PO BID #14 CAPSULES 5 Unknown Rx capsule prednisone 20 mg tablet 60 mg (3 x 20 mg) PO DAILY #15 Unknown Rx TABLETS Allergy/AdvReac Type Severity Reaction Status Date / Time Penicillins AdvReac Vomiting Verified 04/28/24 12:42 Surgical History S/P dilatation and curettage Hx of cholecystectomy Hx of breast surgery Hx of tubal ligation Social History Smoking Status: Current some day smoker tobacco type: e-cigarettes ROS ROS ED Constitutional Constitutional ED: Reports chills; Denies fever(s), sweats or weight loss Eyes Eyes: Denies change in vision or diplopia ENT ENT ED: Reports rhinorrhea and sore throat; Denies ear pain Cardiovascular Cardiovascular: Denies chest pain, orthopnea, palpitations or racing heartbeat Respiratory/Chest Respiratory/Chest: Reports cough, dyspnea and other Details: Wheezing ; Denies orthopnea Gastrointestinal Gastrointestinal: Reports other Details: Posttussive emesis ; Denies abdominal pain, diarrhea or nausea Genitourinary Genitourinary ED: Denies dysuria, hematuria or urinary frequency Musculoskeletal Musculoskeletal: Denies arthralgias or myalgias Integumentary Denies abscess or rash Neurologic Neurologic: Denies headache(s) or weakness Psychiatric Psychiatric: Denies anxiety, depression, suicidal ideation or suicidal thoughts Endocrine Endocrinology: Denies polydipsia, polyphagia or polyuria Allergic/Immunologic Allergic/Immunologic ED: Denies mouth swelling, tongue swelling or urticaria EXAM Physical Exam Const Vital Signs: 04/28/24 12:38 04/28/24 12:41 04/28/24 14:06 Temperature 98.4 F Temperature Source Oral Pulse Rate 81 89 Respiratory Rate 18 18 Respiratory Effort Normal Non-Labored Respiratory Pattern Normal Blood Pressure 129/78 H Blood Pressure Mean 95 Pulse Ox 97 97 Oxygen Delivery Method Room Air Positive well nourished, well developed and obese General Appearance ED: well developed and NAD Nutritional Appearance: obese HEENT Reports normoce (more content not included)... [facility] -- LAKEISHA TOPETE ([id number]) 1970 F Date Time Provider Department 04/27/24 2:45 PM ENRIQUE MARTIN During your visit today, we recorded the following information about you: Temperature Pulse Respiration Blood pressure 97.2 degrees 75/minute 18/minute 145/89 Weight 92.2 kg Enrique Martin APRN.[employer] 04/27/2024 3:42 PM Signed Subjective HPI HPI Lakeisha Topete is a 53 year old female who presents today for CC of cough, congestion, ear pain, h/a, st. This started today. Has tried nothing for relief. Symptoms are worsened by nothing. Risk factors sick exposures at home. Vomiting, diarrhea for 1 week,now once a day. .Patient presents with: Head Congestion: Bilateral ear pain, ARANDA, ST, runny nose x4 days PAST MEDICAL HISTORY Diagnosis Date Allergic rhinitis, cause unspecified Depression 09/26/2010 Diabetes mellitus (HCC) Morbid obesity (HCC) 07/24/2011 Other combinations of endocrine dysfunction Sprain of neck Unspecified asthma(493.90) PAST SURGICAL HISTORY Procedure Laterality Date ENDOMETRIAL BIOPSY 11/17/2023 HYSTEROSCOPY, DIAGNOSTIC (SEPARATE 12/03/2023 DANDC, Myomectomy LAPAROSCOPIC APPENDECTOMY 09/20/2009 LAPS SURG CHOLECYSTECTOMY W/CHOLANGIOGRAPHY IOC - non draining LIG/TRNSXJ FLP TUBE ABDL/VAG APPR UNI/BI Tubal ligation TONSILLECTOMY PRIMARY/SECONDARY Tonsillectomy ALLERGIES Penicillins MEDICATIONS glipiZIDE (GLUCOTROL XL) 5 mg 24 hr tablet Take 1 tablet by mouth once daily. simvastatin (ZOCOR) 80 mg tablet Take 1 tablet by mouth once daily. EPINEPHrine (EPIPEN) 0.3 mg/0.3 mL auto-injector DIRECTED as needed for anaphylaxis TRUE METRIX GLUCOSE TEST STRIP test strip USE TO TEST BLOOD GLUCOSE 3 TIMES DAILY. oxybutynin XL (DITROPAN XL) 5 mg 24 hr tablet once daily. fluticasone (FLONASE) 50 mcg/actuation nasal spray Use 2 Sprays in each nostril once daily. Rinse mouth after use. (Patient not taking: Reported on 12/23/2023) Kvxubyzo-Fl-Pso-Fe-FA tab Take 1 tablet by mouth once daily. norethindrone (AYGESTIN) 5 mg tablet Take 1 tablet by mouth as directed. one tablet daily or BID as needed to slow vaginal bleeding acetaminophen (TYLENOL EXTRA STRENGTH) 500 mg tablet Take 1 tablet by mouth every 8 hours as needed for pain. ibuprofen (MOTRIN) 600 mg tablet Take 1 tablet by mouth every 6 hours as needed for pain. FOR PAIN. ferrous sulfate (SLOW FE) 137 mg (45 mg iron) TbER Take 1 tablet by mouth once daily. albuterol HFA (PROVENTIL HFA, VENTOLIN HFA) 90 mcg/actuation inhaler Inhale 2 Puffs as instructed every 4 hours as needed for wheezing/shortness of breath. omeprazole (PRILOSEC) 40 mg capsule Take by mouth. ARIPiprazole (ABILIFY) 5 mg tablet Take 1 tablet by mouth once daily. For 30 days FLUoxetine (PROZAC) 20 mg capsule Take 1 capsule by mouth once daily. losartan (COZAAR) 25 mg tablet Take 1 tablet by mouth once daily. For 30 days metFORMIN (GLUCOPHAGE) 500 mg tablet Take 500 mg by mouth twice daily. Ipratropium (ATROVENT) 17 mcg/actuation inhaler Inhale 2 Puffs as instructed every 6 hours. fluticasone (FLONASE) 50 mcg/actuation nasal spray Use 1 [place] in each nostril once daily. mometasone-formoterol (DULERA) 100-5 mcg/actuation inhaler Inhale 2 Puffs as instructed twice daily. albuterol HFA (PROAIR HFA) 90 mcg/actuation inhaler Inhale 2 Puffs as instructed every 4 hours as needed for Wheezing/Shortness of Breath. FAMILY HISTORY Problem Relation Age of Onset Cancer Mother breast cancer Diabetes Mother COPD Father Coronary Artery Disease Father of [place] Breast Cancer Sister Heart Brother No Known Problems Maternal Grandmother No Known Problems Maternal Grandfather No Known Problems Paternal Grandmother No Known Problems Paternal Grandfather No Known Problems Daughter No Known Problems Daughter No Known Problems Daughter No Known Problems Daughter Adopted No Known Problems Son No Known Problems Son Social History Tobacco Use Smoking status: Never Smokeless tobacco: Never Tobacco comments: VAPE Vaping Use Vaping status: Some Days Substances: CBD Substance Use Topics Alcohol use: Not Currently Drug use: Never Review of Systems Constitutional: Negative for fever. HENT: Positive for congestion, ear pain and sore throat. Negative for nosebleeds. Respiratory: Positive for cough. Negative for shortness of breath and wheezing. Gastrointestinal: Positive for diarrhea, nausea and vomiting. Negative for abdominal pain and constipation. Musculoskeletal: Negative for neck pain. Objective Blood pressure 145/89, pulse 75, temperature 36.2 ?C (97.2 ?F), resp. rate 18, weight 92.2 kg (203 lb 4.2 oz), last menstrual period 11/22/2023, SpO2 99%. Physical Exam Constitutional: General: She is not in acute distress. Appearance: Normal appearance. She is not toxic-appe (more content not included)... Normal [facility] CNOVon 03-22-2024 CNOV Office Visit ([facility] ) -- LAKEISHA TOPETE Christoph ([id number]) 1970 F Date Time Provider Department 03/22/24 1:30 PM SEAN AN [facility] During your visit today, we recorded the following information about you: Temperature Pulse Respiration Blood pressure 97.5 degrees 71/minute 18/minute 147/89 Weight 90.8 kg Sean An PA-C 03/22/2024 2:33 PM Signed This note was created using Trademarkiariter. Subjective Lakeisha Topete is a 53 year old female. Patient is a 53-year-old female who arrives for evaluation of 2 separate complaints. Patient reports that she sustained a fall injury on the ice last evening and is complaining of lower back and right hip pain. Patient reports that she does have a history of chronic low back pain. Patient denies paresthesia or paralysis to her bilateral legs and states that the pain radiates from her lower back to her right hip and leg. Patient denies history of fracture or surgery to her lumbar back and right hip. Patient states that she has full control of bowel and bladder denies episodes of incontinence. Patient is able to bear weight and ambulate although it is painful to do so. Patient explains that she did take a cab to our facility today. Patient also complains of redness to the skin to her right cheek which has been present for the past 3 to 4 days. Patient states that the site has become increasingly painful. Patient states that her right eye itself is asymptomatic and she has noted no redness, matting or discharge to her right eye. Patient denies fever, chills or other systemic illness symptoms. Fall Review of Systems Musculoskeletal: Low Back Pain After Fall; Right Hip Pain After Fall Skin: Redness and Pain to Right Cheek All other systems reviewed and are negative. Objective BP 147/89 Pulse 71 Temp 36.4 ?C (97.5 ?F) Resp 18 Wt 90.8 kg (200 lb 2.8 oz) LMP 11/22/2023 (Approximate) SpO2 99% BMI 41.84 kg/m? Physical Exam Vitals and nursing note reviewed. Constitutional: Appearance: Normal appearance. She is normal weight. HENT: Head: Normocephalic and atraumatic. Right Ear: External ear normal. Left Ear: External ear normal. Nose: Nose normal. Mouth/Throat: Mouth: Mucous membranes are moist. Pharynx: Oropharynx is clear. Eyes: General: Right eye: No discharge. Left eye: No discharge. Extraocular Movements: Extraocular movements intact. Conjunctiva/sclera: Conjunctivae normal. Pupils: Pupils are equal, round, and reactive to light. Cardiovascular: Rate and Rhythm: Normal rate. Pulses: Normal pulses. Heart sounds: Normal heart sounds. Pulmonary: Effort: Pulmonary effort is normal. Breath sounds: Normal breath sounds. Abdominal: General: Abdomen is flat. Palpations: Abdomen is soft. Musculoskeletal: General: Tenderness present. No swelling, deformity or signs of injury. Normal range of motion. Cervical back: Normal range of motion and neck supple. No rigidity or tenderness. Skin: General: Skin is warm and dry. Capillary Refill: Capillary refill takes less than 2 seconds. Findings: Erythema present. No bruising. Comments: Mild erythema is noted to the right cheek. No induration or fluctuance is noted with palpation. There does appear to be a healing skin wound with an eschar over the right zygomatic arch. There is no bleeding, serous or purulent fluid noted to the site. Exam of the right periorbital skin is clear and there is no erythema or edema noted to same. No ptosis is noted and exam of the right eye is fully unremarkable. Remainder of exam to the facial skin and scalp was unremarkable. Neurological: General: No focal deficit present. Mental Status: She is alert and oriented to person, place, and time. Cranial Nerves: No cranial nerve deficit. Sensory: No sensory deficit. Motor: No weakness. Coordination: Coordination normal. Gait: Gait normal. Psychiatric: Mood and Affect: Mood normal. Behavior: Behavior normal. Thought Content: Thought content normal. Judgment: Judgment normal. Assessment and Plan Physical exam findings as noted above. X-ray lumbar spine is negative for acute findings, however the radiologist does describe degenerative changes with multilevel disc space narrowing. There is an L5 on S1 anterolisthesis with L5 pars defect. X-ray right hip and pelvis is negative for acute findings as reported by the radiologist. Patient was informed of the above findings and states that she has never been informed that she has been developing degenerative disc disease to her neck or back. Patient was provided with a prescription for doxycycline 100 mg for right facial cellulitis and Robaxin 500 mg for her acute lumbar back pain. Patient was very clearly instructed to report to an emergency department if she notes any new or worsening symptoms. Patient was also encouraged to schedule (more content not included)... Normal [facility] No Panel Informationon 03-22 Radiology Study observation (narrative) [facility] XR HIP 3V PELV+ AP/LAT RTon 03-22-2024 XR HIP 3V PELV+ AP/LAT RT * * *Final Report* * * DATE OF EXAM: Mar 22 2024 1:58PM WOX [id number] - XR HIP 3V PELV+ AP/LAT RT / PROCEDURE REASON: Contusion of right hip, initial encounter * * * * Physician Interpretation * * * * TITLE: XR HIP 3V PELV+ AP/LAT RT CLINICAL INDICATION: Pain after fall TECHNIQUE: AP radiograph of the pelvis and AP/frog leg lateral radiographs of the right hip COMPARISON: None FINDINGS: No acute fracture or dislocation identified. Hip joint spaces appear symmetric and preserved. Subchondral sclerosis about the pubic symphysis. IMPRESSION: No radiographic evidence of acute osseous abnormality. Hadoop Architect: CIARA Transcribe Date/Time: Mar 22 2024 2:11P Dictated by : BRI ROACH MD This examination was interpreted and the report reviewed and electronically signed by: BRI ROACH MD on Mar 22 2024 2:12PM EST [id number] Normal [facility] XR LUMBAR 3V AP/LAT/L5-S1on 03-22-2024 XR LUMBAR 3V AP/LAT/L5-S1 * * *Final Report* * * DATE OF EXAM: Mar 22 2024 1:58PM WOX 5228 - XR LUMBAR 3V AP/LAT/L5-S1 / PROCEDURE REASON: Lumbar back pain * * * * Physician Interpretation * * * * EXAM TITLE: XR LUMBAR 3V AP/LAT/L5-S1 EXAM DATE/TIME: 03/22/2024 1:58 PM COMPARISON: None. CLINICAL INDICATION/HISTORY: Back pain. TECHNIQUE: AP, lateral and cone down lateral views of the lumbar spine are presented. FINDINGS: There are five wqd-hsa-cbetvkx lumbar vertebrae. No acute fractures demonstrated. There is grade 1 L5 on S1 anterolisthesis, with L5 pars defect. T12-L1, L1-2, L2-3 and L3-4 disc space narrowing is visualized. There is mild to moderate osteophyte formation. Kissing spine seen on lateral view. Others: There is a 9 mm radiopaque opacity projecting over the right kidney, raising concern for kidney stone. Probably phlebolith in the left pelvis. IMPRESSION: Lumbar spine degenerative changes with multilevel disc space narrowing. L5 on S1 anterolisthesis with L5 pars defect. Hadoop Architect: CIARA Transcribe Date/Time: Mar 22 2024 2:02P Dictated by : JUDD CAMPO MD This examination was interpreted and the report reviewed and electronically signed by: JUDD CAMPO MD on Mar 22 2024 2:11PM EST [id number] Normal [facility] XR Lumbar spine 3 Viewson IMPRESSION: Lumbar s pine degenerative changes with multilevel disc space narrowing. L5 on S1 anterolisthesis with L5 pars defect. Hadoop Architect: CIAAR Transcribe Date/Time: Mar 22 2024 2:02P Dictated by : JUDD CAMPO MD This examination was interpreted and the report reviewed and electronically signed by: JUDD CAMPO MD on Mar 22 2024 2:11PM [facility] DIVISION OF RADIOLOGY * * *Final Report* * * DATE OF EXAM: Mar 22 2024 1:58PM WOX 5228 - XR LUMBAR 3V AP/LAT/L5-S1 / PROCEDURE REASON: Lumbar back pain * * * * Physician Interpretation * * * * EXAM TITLE: XR LUMBAR 3V AP/LAT/L5-S1 EXAM DATE/TIME: 03/22/2024 1:58 PM COMPARISON: None. CLINICAL INDICATION/HISTORY: Back pain. TECHNIQUE: AP, lateral and cone down lateral views of the lumbar spine are presented. FINDINGS: There are five nkg-tey-fswaibc lumbar vertebrae. No acute fractures demonstrated. There is grade 1 L5 on S1 anterolisthesis, with L5 pars defect. T12-L1, L1-2, L2-3 and L3-4 disc space narrowing is visualized. There is mild to moderate osteophyte formation. Kissing spine seen on lateral view. Others: There is a 9 mm radiopaque opacity projecting over the right kidney, raising concern for kidney stone. Probably phlebolith in the left pelvis. DIVISION OF RADIOLOGY Provider, [facility] - 03/22/2024 * * *Final Report* * * DATE OF EXAM: Mar 22 2024 1:58PM WOX 5228 - XR LUMBAR 3V AP/LAT/L5-S1 / PROCEDURE REASON: Lumbar back pain * * * * Physician Interpretation * * * * EXAM TITLE: XR LUMBAR 3V AP/LAT/L5-S1 EXAM DATE/TIME: 03/22/2024 1:58 PM COMPARISON: None. CLINICAL INDICATION/HISTORY: Back pain. TECHNIQUE: AP, lateral and cone down lateral views of the lumbar spine are presented. FINDINGS: There are five qxe-kzb-zxfgkaj lumbar vertebrae. No acute fractures demonstrated. There is grade 1 L5 on S1 anterolisthesis, with L5 pars defect. T12-L1, L1-2, L2-3 and L3-4 disc space narrowing is visualized. There is mild to moderate osteophyte formation. Kissing spine seen on lateral view. Others: There is a 9 mm radiopaque opacity projecting over the right kidney, raising concern for kidney stone. Probably phlebolith in the left pelvis. IMPRESSION IMPRESSION: Lumbar spine degenerative changes with multilevel disc space narrowing. L5 on S1 anterolisthesis with L5 pars defect. Hadoop [facility] Transcribe Date/Time: Mar 22 2024 2:02P Dictated by : JUDD CAMPO MD This examination was interpreted and the report reviewed and electronically signed by: JUDD CAMPO MD on Mar 22 2024 2:11PM EST [facility] XR Pelvis and Hip - right AP and Lateral frogon 03-22-2024 IMPRESSION: No radiographic evidence of acute osseous abnormality. Hadoop Architect: [facility] Transcribe Date/Time: Mar 22 2024 2:11P Dictated by : BRI ROACH MD This examination was interpreted and the report reviewed and electronically signed by: BRI ROACH MD on Mar 22 2024 2:12PM EST DIVISION OF RADIOLOGY * * *Final Report* * * DATE OF EXAM: Mar 22 2024 1:58PM WOX 5352 - XR HIP 3V PELV+ AP/LAT RT / PROCEDURE REASON: Contusion of right hip, initial encounter * * * * Physician Interpretation * * * * TITLE: XR HIP 3V PELV+ AP/LAT RT CLINICAL INDICATION: Pain after fall TECHNIQUE: AP radiograph of the pelvis and AP/frog leg lateral radiographs of the right hip COMPARISON: None FINDINGS: No acute fracture or dislocation identified. Hip joint spaces appear symmetric and preserved. Subchondral sclerosis about the pubic symphysis. DIVISION OF RADIOLOGY Provider, [facility] - 03/22/2024 * * *Final Report* * * DATE OF EXAM: Mar 22 2024 1:58PM WOX 5352 - XR HIP 3V PELV+ AP/LAT RT / PROCEDURE REASON: Contusion of right hip, initial encounter * * * * Physician Interpretation * * * * TITLE: XR HIP 3V PELV+ AP/LAT RT CLINICAL INDICATION: Pain after fall TECHNIQUE: AP radiograph of the pelvis and AP/frog leg lateral radiographs of the right hip COMPARISON: None FINDINGS: No acute fracture or dislocation identified. Hip joint spaces appear symmetric and preserved. Subchondral sclerosis about the pubic symphysis. IMPRESSION IMPRESSION: No radiographic evidence of acute osseous abnormality. Hadoop Architect: [facility] Transcribe Date/Time: Mar 22 2024 2:11P Dictated by : BRI ROACH MD This examination was interpreted and the report reviewed and electronically signed by: BRI ROACH MD on Mar 22 2024 2:12PM EST [facility] XR Pelvis and Hip - right AP and Lateral frogOrdered By: [facility] Provider on 03-22-2024 [facility] Sally 01-14-2024 CNPN Telephone (HEMAWS) -- LAKEISHA TOPETE ([id number]) 1970 F Date Time Provider Department 01/14/24 NIDA KEITA During your visit today, we recorded the following information about you: Eva Alvarenga RN 01/14/2024 2:06 PM Signed Spoke to patient to see if she would be able to come in early 01/16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 above: Performed By: #### L 100.0100, L500.2500 #### [facility] [address] [place], [address] MCHC (RBC) [Mass/Vol] 29.6 g/dL Low 32-36 [facility] Comment on above: Performed By: #### L 100.0100, L500.2500 #### [facility] Laboratory [address] [place], [address] MCV (RBC) [Entitic vol] 75.0 fL Low 81-99 [facility] Comment on above: Performed By: #### L 100.0100, L500.2500 #### [facility] [address] [place], [address] Monocytes/100 WBC (Bld) 7.8 % Normal 0-10 [facility] Comment on above: Performed By: #### L 100.0100, L500.2500 #### [facility] [address] [place], [address] Neutrophils/100 WBC (Bld) 67.7 % Normal 47-70 [facility] Comment on above: Performed By: #### L 100.0100, L500.2500 #### [facility] [address] [place], [address] Nucleated RBC (Bld) [#/Vol] 0 10*3/uL Normal 0-5 [facility] Comment on above: Performed By: #### L 100.0100, L500.2500 #### [facility] [address] [place], [address] Platelet mean volume (Bld) [Entitic vol] 10.7 fL Normal 6.2-12.0 [facility] Comment on above: Performed By: #### L 100.0100, L500.2500 #### [facility] [address] [place], [address] Platelets (Bld) [#/Vol] 216 10*3/uL Normal 150-450 [facility] Comment on above: Performed By: #### L 100.0100, L500.2500 #### [facility] [address] [place], [address] RBC (Bld) [#/Vol] 3.20 10*6/uL Low 4.2-5.4 [facility] Comment on above: Performed By: #### L 100.0100, L500.2500 #### [facility] [address] [place], [address] RDW SD 53.7 fl High 35.1-43.9 [facility] Comment on above: Performed By: #### L 100.0100, L500.2500 #### [facility] [address] [place], [address] WBC (Bld) [#/Vol] 11.2 10*3/uL High 4.4-11.0 [facility] Comment on above: Performed By: #### L 100.0100, L500.2500 #### [facility] [address] [place], [address] Comprehensive Metabolic Prof ilon 12-03-2023 Albumin [Mass/Vol] 2.6 g/dL Low 3.2-5.0 [facility] Comment on above: Performed By: #### L 100.0100, L500.2500 #### [facility] [address] [place], [address] Albumin/Globulin [Mass ratio] 0.8 {ratio} Low 0.9-2.4 [facility] Comment on above: Performed By: #### L 100.0100, L500.2500 #### [facility] [address] [place], [address] ALK P 61 U/L Normal 45-117 [facility] Comment on above: Performed By: #### L 100.0100, L500.2500 #### [facility] [address] [place], [address] ALT [Catalytic activity/Vol] 16 U/L Normal 13-56 [facility] Comment on above: Performed By: #### L 100.0100, L500.2500 #### [facility] [address] [place], [address] AST [Catalytic activity/Vol] 7 U/L Low 15-37 [facility] Comment on above: Performed By: #### L 100.0100, L500.2500 #### [facility] [address] [place], [address] Bilirubin [Mass/Vol] 0.50 mg/dL Normal 0.20-1.00 [facility] Comment on above: Result Comment: For patients on eltrombopag therapy, use of Dimension [place] TBIL is not recommended. Performed By: #### L 100.0100, L500.2500 #### [facility] [address] [place], [address] BUN/CRE 17.3 RATIO Normal 10-20 [facility] Comment on above: Performed By: #### L 100.0100, L500.2500 #### [facility] [address] [place], [address] CA,Total 7.8 mg/dL Low 8.5-10.1 [facility] Comment on above: Performed By: #### L 100.0100, L500.2500 #### [facility] Laboratory [address] [place], [address] Chloride [Moles/Vol] 112 mmol/L High 98-107 [facility] Comment on above: Performed By: #### L 100.0100, L500.2500 #### [facility] [address] [place], [address] CO2 [Moles/Vol] 22.0 mmol/L Normal 21.0-32.0 [facility] Comment on above: Performed By: #### L 100.0100, L500.2500 #### [facility] [address] [place], [address] Creatinine [Mass/Vol] 0.75 mg/dL Normal 0.55-1.02 [facility] Comment on above: Result Comment: The validity of the calculated GFR GFRAA in patients over 70 years has not been determined. Clinical correlation is essential. Performed By: #### L 100.0100, L500.2500 #### [facility] [address] [place], [address] ECRCL 85.27 ml/min Normal [facility] Comment on above: Performed By: #### L 100.0100, L500.2500 #### [facility] [address] [place], [address] EST GFR - AA 105 mL/min Normal >60 [facility] Comment on above: Result Comment: Afri can Citizen Of [place] GFR Calc Performed By: #### L 100.0100, L500.2500 #### [facility] Laboratory [address] [place], [address] GAP 6 Normal 5-15 [facility] Comment on above: Performed By: #### L 100.0100, L500.2500 #### [facility] Laboratory [address] [place], [address] GFR/1.73 sq M.predicted among non-blacks MDRD (S/P/Bld) [Vol rate/Area] 86 mL/min/{1.73_m2} Normal >60 [facility] Comment on above: Result Comment: Non- GFR Calc Performed By: #### L 100.0100, L500.2500 #### [facility] Laboratory [address] [place], [address] Globulin (S) [Mass/Vol] 3.4 g/dL Normal 2.2-4.2 [facility] Comment on above: Performed By: #### L 100.0100, L500.2500 #### [facility] [address] [place], [address] Glucose [Mass/Vol] 168 mg/dL High 74-106 [facility] Comment on above: Result Comment: Fast ing Glucose result greater than or equal to 126 mg/dL suggests DIABETES MELLITUS per A.D.A. criteria. Performed By: #### L 100.0100, L500.2500 #### [facility] Laboratory [address] [place], [address] Potassium [Moles/Vol] 3.6 mmol/L Normal 3.5-5.1 [facility] Comment on above: Performed By: #### L 100.0100, L500.2500 #### [facility] [address] [place], [address] Sodium [Moles/Vol] 140 mmol/L Normal 136-145 [facility] Comment on above: Performed By: #### L 100.0100, L500.2500 #### [facility] [address] [place], [address] T PROT 6.0 g/dL Low 6.4-8.2 [facility] Comment on above: Performed By: #### L 100.0100, L500.2500 #### [facility] [address] [place], [address] Urea nitrogen [Mass/Vol] 13 mg/dL Normal 7-18 [facility] Comment on above: Performed By: #### L 100.0100, L500.2500 #### [facility] Laboratory [address] [place], [address] Discharge Instructionon 10-0 Discharge Instruction [facility] Medical Records Department [address] [place] [address] Instructions for Home/Discharge Instructions 12/03/23 1053 MR#: [id number] Acct: [id number] Name: LAKEISHA TOPETE Christoph Rep #: [id number] : 1970 53 From: Taya Dai MD PCP: CHRISSY Alcantara Status:ADM IN Discharge Instructions Diet Discharge Diet: No restrictions Activity May resume sexual activity in: 1 week Dressing / Incision Call your doctor if you observe: Fever of 101 or Higher, Inability to urinate, Using more than 1 pad per hour and Uncontrolled pain Follow Up Care Please Follow Up With: Taya Dai MD When: 1-2 weeks post OP if you need an appointment please call [phone] Test Results: Test results from this visit will be discussed in further detail at your follow-up appointment, if applicable. Discharge Plan Admission Admit Date/Time: 12/02/23 17:48 Attending Provider: Sulema Gan Primary Care Provider: Desire Lanier NP Discharge Orders/Prescriptions Prescriptions: No Action fluoxetine 20 MG capsule 20 mg PO DAILY metformin 500 mg tablet 500 mg PO BID Qty: 20 0RF budesonide-formoterol [Symbicort] 80-4.5 mcg/actuation HFA aerosol inhaler 2 puff inhalation BID Qty: 10.2 0RF ibuprofen 800 mg tablet 800 mg PO TID PRN (Reason: pain) Qty: 20 0RF glipizide 5 mg tablet extended release 24hr 5 mg PO DAILY norethindrone acetate 5 mg tablet 5 mg PO BID PRN (Reason: vag bleeding) WesTab Plus 27 mg iron- 1 mg tablet 1 tab PO DAILY ferrous sulfate [FeroSul] 325 mg (65 mg iron) tablet 325 mg PO BID epinephrine 0.3 mg/0.3 mL auto-injector 0.3 mg IM UD PRN (Reason: anaphylaxis) cefdinir 300 mg capsule 300 mg PO Q12H Qty: 14 0RF Patient Comments: PT GOT PRESCRIBED ON 12/01/23, WAS GOING TO START ON 12/02/23, CAME BACK TO ER. HAS NOT STARTED. acetaminophen 500 mg tablet 500 mg PO Q6H PRN (Reason: pain) aripiprazole 5 mg tablet 5 mg PO DAILY simvastatin 80 mg tablet 80 mg PO QHS losartan 25 mg tablet 25 mg PO DAILY oxybutynin chloride 5 mg tablet extended release 24hr 5 mg PO DAILY albuterol sulfate [Ventolin HFA] 90 mcg/actuation HFA aerosol inhaler 1 - 2 puff inhalation Q4H PRN (Reason: Wheezing) Rx Instructions: please give spacer Referrals / Follow Up: Desire Lanier NP, SPEECH COACH-C [Primary Care Provider] - 12/03/23 1059 Taya Dai MD CC: CHRISSY Lanier Signed Normal [facility] Hemoglobin A1con 12-03-2023 HbA1c (Bld) [Mass fraction] 5.6 % Normal 3.8-5.6 [facility] [facility] Comment on above: Result Comment: Norm al < 5.7 % Prediabetic 5.7 - 6.4 % Diabetic >or= 6.5 % Please note range changes. Performed By: #### L 300.4310, L501.9985 #### [facility] Laboratory [address], [address] MR/POSTOP.ANEon 12-03-2023 MR/POSTOP.ANE [facility] Medical Records Department [address] [place] [address] Anesthesia Postop Eval I 12/03/23 1243 MR#: [id number] Acct: [id number] Name: LAKEISHA TOPETE Rep #: [id number] : 1970 53 From: Lydia Pickard CRNA PCP: CHRISSY Alcantara Status:ADM IN Y Race: C Location: [place] [address] Anesthesia: Postop Eval I Current Vital Signs Temperature: 97 F Pulse Rate: 87 Blood Pressure: 137/86 Respiratory Rate: 20 Pulse Ox: 97 Oxygen Delivery Method: Room Air Assessment Airway patent: Yes Spontaneous unlabored respirations: Yes Mental status: Awake and Calm nausea: No Vomiting: No Anesthesia Complication: No Fluid Hydration Crystalloid volume administer (ml): 400 Total IV fluid infused: 400 Progress Note Anesthesia document: Postop Eval 1 completed: Yes 12/03/23 124 Date Lydia Pickard CRNA Cosigner Signature: Date CC: Signed Normal [facility] [place] MR/[id number] 12-03-2023 MR/POSTOPAN2 [facility] Medical Records Department [address] [place] [address] Anesthesia Postop Eval II 12/03/23 1434 MR#: [id number] Acct: [id number] Name: LAKEISHA TOPETE Rep #: [id number] : 1970 53 From: Rob Lawrence MD PCP: CHRISSY Alcantara Status:ADM IN Y Race: C Location: [place]3 [id number] Anesthesia Postop Eval I Sum Postop Eval Completion status Anesthesia document: Postop Eval 1 completed: Yes Anesthesia Postop Eval I Summary Anesthesia Postop Eval I Summary: Anesthesia Postop Eval I: Assessment Summary Airway patent Yes 12/03/23 12:43 RAW MILL OPERATOR.[email or web address] Spontaneous unlabored Yes 12/03/23 12:43 RAW MILL OPERATOR.SCHR respirations Mental status Awake,Calm 12/03/23 12:43 RAW MILL OPERATOR.SCHR nausea No 12/03/23 12:43 RAW MILL OPERATOR.SCHR Vomiting No 12/03/23 12:43 RAW MILL OPERATOR.SCHR Anesthesia Postop Eval I: Fluid Summary Crystalloid volume administer 400 12/03/23 12:43 RAW MILL OPERATOR.SCHR (ml) Colloids volume administered ( ml) Blood Product volume administered (ml) Total IV fluid infused 400 12/03/23 12:43 RAW MILL OPERATOR.SCHR Anesthesia Postop Eval I: Summary Notes Anesthesia Complication No 12/03/23 12:43 RAW MILL OPERATOR.SCHR Anesthesia Complication Comment: Post-operative progress note Anesthesia: Postop Eval II Evaluation Mental status: Awake Pain Level: 0 nausea: No Vomiting: No 12/03/23 1435 Date Rob Lawrence MD Cosigner Signature: Date CC: Signed Normal [facility] MR/POSTOPAN2 [facility] Medical Records Department [address] [place] [address] Anesthesia Postop Eval II 12/03/23 1431 MR#: [id number] Acct: [id number] Name: LAKEISHA TOPETE Christoph Rep #: [id number] : 1970 53 From: Rob Lawrence MD PCP: CHRISSY Alcantara Status:PRE SDC Y Race: C [place] [facility] [place]hesia Postop Eval I Sum Anesthesia Postop Eval I Summary Anesthesia Postop Eval I Summary: Anesthesia Postop Eval I: Assessment Summary Airway patent Spontaneous unlabored respirations Mental status nausea Vomiting Anesthesia Postop Eval I: Fluid Summary Crystalloid volume administer (ml) Colloids volume administered ( ml) Blood Product volume administered (ml) Total IV fluid infused Anesthesia Postop Eval I: Summary Notes Anesthesia Complication Anesthesia Complication Comment: Post-operative progress note Anesthesia: Postop Eval II Evaluation Mental status: Awake Pain Level: 0 nausea: No Vomiting: No 12/03/23 1431 Date Rob Mendesigneliezer Signature: Date CC: Signed Normal [facility] Operative Reporton 4 Operative Report [facility] Medical Records Department [address] [place] [address] Operative Report 12/03/23 1109 MR#: [id number] Acct: [id number] Name: LAKEISHA TOPETE Rep #: [id number] : 1970 53 From: Taya Dai MD PCP: CHRISSY Alcantara Status:ADM IN [place] [facility] [id number] Report of Operation Date of Procedure: 12/03/23 Pre-Operative Diagnosis: uterine Fibroid, Acute on chronic anemia, AUB, Endometrial Polyps Post-Operative Diagnosis: Same Surgery/Procedure Performed:: Hysteroscopy, D C, Myomectomy Description of Surgical Findings:: 3cm prolapsing fibroid. Surgeon: Taya Dai wireless cellular technician: Fermín Campbell Type of Anesthesia: MAC Specimen's removed: fibroids, endometrial curetting Estimated Blood Loss (mL): 10 Fluids Replaced: 400 Description of Procedure: Informed consent was obtained the patient was taken the operating room she was placed in supine position. She was given anesthesia. She was then placed in the [facility] where she was prepped and draped in the normal sterile fashion. At this time the weighted speculum was placed in the posterior fornix of vagina. Single-tooth tenaculum was used to gently grasp the anterior lip the cervix. large prolapsing fibroid noted approximately 3cm on thick stalk -At this time 0 vicryl suture used to place tie around stalk. bovie then used to cauterize and remove fibroid. once fibroid was removed the cervix was sutured to try to clamped it so Symphion could be used to resect base. it was difficult to maintain closure due to advanced dilation, however i was able to remove significant amount of fibroid base. Tubal ostia visualized. no polyps were noted but thickened endometrium noted. This time hysteroscopy was complete. Tissue will be sent to pathology for evaluation. sutures were removed. Tenaculum removed. Good hemostasis. Instrument, lap count correct x 2. estimated fluid deficiet was 500-1000cc, there was large amount of fluid on floor and collecting on towels, 2000cc in collection bag. Vaginal Sweep was negative. dr. campbell assisted in manipulation of fibroid and retraction of tissue for visualiztion Grafts/Implants Used: none Procedure Start Time: 11:38 Procedure Stop Time: 12:26 Complications none Admit VTE Documentation VTE Present on Admission: Yes VTE Mechan Device Prophylaxis: SCD's VTE Pharm Prophylaxis ordered?: No Reason prophylaxis not ordered:: Procedure Not Indicated 12/03/23 1234 Cosigner Signature (if applicable): CC: CHRISSY Lanier; Dr Taya Dai MD; Dr. Darryl Cordoba DO Signed Normal [facility] Partial Thromboplast Timeon 12-03-2023 aPTT Coag (Bld) [Time] 24.5 s Normal 24.1-36.2 [facility] Comment on above: Performed By: #### L 300.4310, L501.9985 #### [facility] Laboratory [address] [place], [address] Surgery Specimen Level Ector 12-03-2023 Surgery Specimen Level IV Patient Age/Sex Location Account Attending Physician LAKEISHA TOPETE 53/F MS3 [id number] Dr. Sulema Gan MD Specimen: [id number] Received: 12/03/23 Status: CASS Ross Num: [id number] Spec Type: [facility] Dr: Dr Taya Schrader-MD Jair HEADER OPERATION: Hysteroscopy, myomectomy, D Reanna, PRE-OP DIAGNOSIS: Abnormal vaginal bleeding, fibroid, uterine TISSUE SUBMITTED: Uterine fibroid and endometrium curettings MICROSCOPIC DIAGNOSIS Uterine fibroid, myomectomy: Submucosal leiomyoma. Focal adenomyosis. Endometrial curettings: Weakly proliferative to mildly disordered proliferative endometrium. Numerous fragments of myometrium. See comment. . 12/06/2023 COMMENT Endometrial curetting specimen predominantly consists of myometrial tissue. MICROSCOPIC DESCRIPTION Slides are reviewed. GROSS DESCRIPTION Received in fixative is one container labeled with the patient's name and designated Uterine fibroid and endometrial curettings. The specimen consists of a reese-white nodule measuring 4.0 x 3.5 x 2.5cm. Sections reveal reese whorled cut surfaces without areas of hemorrhage, necrosis or cystic degeneration. Also received are multiple fragments of reese soft tissue measuring in aggregate 7.0 x 4.5 x 1.5cm. School Bus Mechanic sections are submitted in fourteen cassettes as follows: 1-3- nodular piece of tissue, 4-14- smaller fragments of tissue (smaller fragments of tissue is submitted in its entirety). / 12/03/2023 TC:1 CPT:40379w5 Patient Age/Sex Location Account Attending Physician LAKEISHA TOPETE 53/F MS3 [id number] Dr. Sulema Gan MD Signed (signature on file) Dr. Jose Baum MD 12/06/23 1202 Normal [facility] Comment on above: Performed By: #### P SUIV ####[facility] [id number] [facility] [address] [place], [place], [id number] Urine Cultureon 12-03-2023 URC Klebsiella pneumonia e sp pneum [place] Count >100,000 Klebsiella pneumoniae sp pneum: REACTION Ampicillin Islt GREGORIA >=32 Ampicillin+Sulbac Islt GREGORIA 4 S ceFAZolin Islt GREGORIA <=4 S Cefepime Islt GREGORIA <=0.12 S cefTRIAXone Islt GREGORIA <=0.25 S Ciprofloxacin Islt GREGORIA <=0.25 S B-Lactamase Extended Susc Islt NEG Gentamicin Islt GREGORIA <=1 S Imipenem Islt GREGORIA <=0.25 S levoFLOXacin Islt GREGORIA <=0.12 S Nitrofurantoin Islt GREGORIA <=16 S Pip+Tazo Islt GREGORIA <=4 S Tobramycin Islt GREGORIA <=1 S TMP SMX Islt GREGORIA <=20 S Normal [facility] Comment on above: Performed By: #### M 100.2208 ####[facility] [id number] [place], [place], [id number] Bedside Glucoseon 12-02-2023 FINGERSTICK GLU 197 mg/dL High 74-106 [facility] Comment on above: Result Comment: STACEY SLOAN OF PATIENT CARE PER NURSING PROTOCOL Performed By: #### L 501.080 #### [facility] Laboratory [address] [place], [address] CBC W/Diff, Automatedon 10-0 3-4 Absolute Lymph 2.23 X10 3/uL Normal 0.83-4.51 [facility] Comment on above: Performed By: #### L 100.0100 #### [facility] Laboratory [address] [place], [address] Absolute Neut 9.3 X10 3/uL High 2.0-7.7 [facility] Comment on above: Performed By: #### L 100.0100 #### [facility] Laboratory [address] [place], [address] Basophils/100 WBC (Bld) 0.5 % Normal 0-1 [facility] Comment on above: Performed By: #### L 100.0100 #### [facility] Laboratory [address] [place], [address] Eosinophils/100 WBC (Bld) 1.4 % Normal 0-5 [facility] Comment on above: Performed By: #### L 100.0100 #### [facility] Laboratory [address] [place], [address] Erythrocyte distribution width (RBC) [Ratio] 19.7 % High 11.6-14.6 [facility] Comment on above: Performed By: #### L 100.0100 #### [facility] Laboratory [address] [place], [address] Hematocrit (Bld) [Volume fraction] 26.0 % Low 37-47 [facility] Comment on above: Performed By: #### L 100.0100 #### [facility] Laboratory [address] [place], [address] Hemoglobin (Bld) [Mass/Vol] 7.6 g/dL Low 12.0-15.0 [facility] Comment on above: Performed By: #### L 100.0100 #### [facility] Laboratory [address] [place], [address] IG% 0.400 Normal 0.0-0.9 [facility] Comment on above: Result Comment: IG% - Immature Granulocytes (promyelocytes, myelocytes and metamyelocytes) > 1% indicates that a LEFT SHIFT is Present. Performed By: #### L 100.0100 #### [facility] Laboratory [address] [place], [address] Lymphocytes/100 WBC (Bld) 17.8 % Low 19-41 [facility] Comment on above: Performed By: #### L 100.0100 #### [facility] Laboratory [address] [place], [address] MCH (RBC) [Entitic mass] 21.8 pg Low 27.0-32.0 [facility] Comment on above: Performed By: #### L 100.0100 #### [facility] Laboratory [address] [place], [address] MCHC (RBC) [Mass/Vol] 29.2 g/dL Low 32-36 [facility] Comment on above: Performed By: #### L 100.0100 #### [facility] Laboratory [address] [place], [address] MCV (RBC) [Entitic vol] 74.7 fL Low 81-99 [facility] Comment on above: Performed By: #### L 100.0100 #### [facility] Laboratory [address] [place], [address] Monocytes/100 WBC (Bld) 6.0 % Normal 0-10 [facility] Comment on above: Performed By: #### L 100.0100 #### [facility] Laboratory [address] [place], [address] Neutrophils/100 WBC (Bld) 73.9 % High 47-70 [facility] Comment on above: Performed By: #### L 100.0100 #### [facility] Laboratory [address] [place], [address] Nucleated RBC (Bld) [#/Vol] 0 10*3/uL Normal 0-5 [facility] Comment on above: Performed By: #### L 100.0100 #### [facility] Laboratory [address] [place], [address] Platelet mean volume (Bld) [Entitic vol] 9.9 fL Normal 6.2-12.0 [facility] Comment on above: Performed By: #### L 100.0100 #### [facility] Laboratory [address] [place], [address] Platelets (Bld) [#/Vol] 246 10*3/uL Normal 150-450 [facility] Comment on above: Performed By: #### L 100.0100 #### [facility] Laboratory [address] [place], [address] RBC (Bld) [#/Vol] 3.48 10*6/uL Low 4.2-5.4 [facility] Comment on above: Performed By: #### L 100.0100 #### [facility] Laboratory [address] [place], [address] RDW SD 52.7 fl High 35.1-43.9 [facility] Comment on above: Performed By: #### L 100.0100 #### [facility] Laboratory [address] [place], [address] WBC (Bld) [#/Vol] 12.5 10*3/uL High 4.4-11.0 [facility] Comment on above: Performed By: #### L 100.0100 #### [facility] Laboratory [address] [place], [address] Absolute Lymph 2.57 X10 3/uL Normal 0.83-4.51 [facility] Comment on above: Performed By: #### L 300.4310, L501.9985 #### [facility] Laboratory [address] [place], [address] Absolute Neut 7.0 X10 3/uL Normal 2.0-7.7 [facility] Comment on above: Performed By: #### L 300.4310, L501.9985 #### [facility] Laboratory [address] [place], [address] Basophils/100 WBC (Bld) 0.4 % Normal 0-1 [facility] Comment on above: Performed By: #### L 300.4310, L501.9985 #### [facility] Laboratory [address] [place], [address] Eosinophils/100 WBC (Bld) 2.2 % Normal 0-5 [facility] Comment on above: Performed By: #### L 300.4310, L501.9985 #### [facility] Laboratory [address] [place], [address] Erythrocyte distribution width (RBC) [Ratio] 19.7 % High 11.6-14.6 [facility] Comment on above: Performed By: #### L 300.4310, L501.9985 #### [facility] Laboratory [address] [place], [address] Hematocrit (Bld) [Volume fraction] 28.7 % Low 37-47 [facility] Comment on above: Performed By: #### L 300.4310, L501.9985 #### [facility] Laboratory [address] [place], [address] Hemoglobin (Bld) [Mass/Vol] 8.5 g/dL Low 12.0-15.0 [facility] Comment on above: Performed By: #### L 300.4310, L501.9985 #### [facility] Laboratory [address] [place], [address] IG% 0.400 Normal 0.0-0.9 [facility] Comment on above: Result Comment: IG% - Immature Granulocytes (promyelocytes, myelocytes and metamyelocytes) > 1% indicates that a LEFT SHIFT is Present. Performed By: #### L 300.4310, L501.9985 #### [facility] Laboratory [address], [address] Lymphocytes/100 WBC (Bld) 24.2 % Normal 19-41 [facility] Comment on above: Performed By: #### L 300.4310, L501.9985 #### [facility] Laboratory [address] [place], [address] MCH (RBC) [Entitic mass] 22.0 pg Low 27.0-32.0 [facility] Comment on above: Performed By: #### L 300.4310, L501.9985 #### [facility] Laboratory [address] [place], [address] MCHC (RBC) [Mass/Vol] 29.6 g/dL Low 32-36 [facility] Comment on above: Performed By: #### L 300.4310, L501.9985 #### [facility] Laboratory [address] [place], [address] MCV (RBC) [Entitic vol] 74.2 fL Low 81-99 [facility] Comment on above: Performed By: #### L 300.4310, L501.9985 #### [facility] Laboratory [address] [place], [address] Monocytes/100 WBC (Bld) 6.9 % Normal 0-10 [facility] Comment on above: Performed By: #### L 300.4310, L501.9985 #### [facility] Laboratory [address] [place], [address] Neutrophils/100 WBC (Bld) 65.9 % Normal 47-70 [facility] Comment on above: Performed By: #### L 300.4310, L501.85 #### [facility] Laboratory [address] [place], [address] Nucleated RBC (Bld) [#/Vol] 0 10*3/uL Normal 0-5 [facility] Comment on above: Performed By: #### L 300.4310, L501.9985 #### [facility] Laboratory [address] [place], [address] Platelet mean volume (Bld) [Entitic vol] 10.2 fL Normal 6.2-12.0 [facility] Comment on above: Performed By: #### L 300.4310, L501.9985 #### [facility] Laboratory [address] [place], [address] Platelets (Bld) [#/Vol] 293 10*3/uL Normal 150-450 [facility] Comment on above: Performed By: #### L 300.4310, L501.85 #### [facility] Laboratory [address] [place], [address] RBC (Bld) [#/Vol] 3.87 10*6/uL Low 4.2-5.4 [facility] Comment on above: Performed By: #### L 300.4310, L501.9985 #### [facility] Laboratory [address] [place], [address] RDW SD 51.3 fl High 35.1-43.9 [facility] Comment on above: Performed By: #### L 300.4310, L501.9985 #### [facility] Laboratory [address] [place], [address] WBC (Bld) [#/Vol] 10.6 10*3/uL Normal 4.4-11.0 [facility] Comment on above: Performed By: #### L 300.4310, L501.9985 #### [facility]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 tablet 40 mg (2 x 20 mg) PO DAILY #10 tabs 05/03/23 Unknown Rx ibuprofen 800 mg tablet 800 mg PO Q8H PRN pain #20 tabs 07/03/23 Unknown Rx cephalexin 500 mg capsule 500 mg PO Q12 #14 CAPSULES 07/16/23 Unknown Rx ondansetron 4 mg disintegrating 4 mg PO Q8H PRN PRN Nausea #10 tabs 07/16/23 Unknown Rx tablet sulfamethoxazole 800 1 tab PO BID #6 TABLETS 08/09/23 Unknown Rx mg-trimethoprim 160 mg tablet ibuprofen 800 mg tablet 800 mg PO TID PRN pain #20 tabs 09/07/23 Unknown Rx sulfamethoxazole 800 1 tab PO BID #14 tabs 09/07/23 Unknown Rx mg-trimethoprim 160 mg tablet (Bactrim DS) Allergy/AdvReac Type Severity Reaction Status Date / Time Penicillins AdvReac Vomiting Verified 10/04/23 15:23 Surgical History Hx of cholecystectomy Hx of breast surgery Hx of tubal ligation Social History Smoking Status: Current every day smoker tobacco type: e-cigarettes EXAM Physical Exam Const Vital Signs: 10/04/23 15:22 10/04/23 15:30 Temperature 98.4 F Temperature Source Temporal Pulse Rate 83 Respiratory Rate 16 Respiratory Effort Normal Respiratory Depth Normal Respiratory Pattern Normal Blood Pressure 134/82 H Blood Pressure Mean 99 Pulse Ox 98 Oxygen Delivery Method Room Air Room Air MDM MDM MDM Narrative Medical decision making narrative: HISTORY OF PRESENT ILLNESS: 53-year-old female presents with fall. Notes headache and pain in right hand. Notes mechanical fall from standing at work. Notes head trauma no loss of conscious or vomiting. Notes she caught her cell with her right hand. Denies elbow pain or shoulder pain. Denies taking blood thinners REVIEW OF SYSTEMS: Pertinent positives: Headache, right hand pain Pertinent negatives: Numbness, tingling, loss of sensation PHYSICAL EXAM: Nursing triage notes reviewed, Vital signs reviewed Primary Survey Airway: Intact Breathing: Bilateral breath sounds Circulation: Palpable bilateral femorals, Palpable bilateral radial, Palpable bilateral DP and Palpable bilateral PT Disability / Spine precautions GCS Score: Eye Openin Verbal Response: 5 Motor Response: 6 Secondary Survey Constitutional: Please see MDM Head: Atraumatic, Midface stable, NO jaw malocclusion, No Cephalohematoma, and No Lacerations noted Eye: Pupils equal round and reactive to light, Extraocular muscles intact and No periorbital ecchymosis or stepoff, no evidence of entrapment ENT: Oropharynx clear, no lacerations, no hemotympanum, no raccoon eyes or bautista sign Cervical spine / Neck: No cervical spine bony tenderness, crepitance, or stepoff deformity Trachea midline Lungs: Clear to auscultation, No asymmetric rise and No crepitus, no flail chest Cardiac: Regular rate and rhythm and No murmurs Abdomen: Soft, Nontender and No rebound Pelvis: Pelvis stable to compression : No evidence of genital injury Back: No midline bony tenderness to thoracic/lumbar/sacral spines Neuro: At baseline, intact strength and sensation in bilateral upper and lower extremities. 2+ rosas (more content not included)... Normal [facility] Hand Min 3 Viewson Hand Min 3 Views [facility] Imaging Services [address], [place] [address] Hand Min 3 Views MR#: [id number] Acct: [id number] Name: LAKEISHA TOPETE Rep #: [id number] : 1970 F 53 From: Jose Eduardo Hernandez PCP: CHRISSY Alcantara Status: REG ER Study: Hand Min 3 Views Date of Exam: 10/04/23 Exam# [id number] Ordering Dr: Luis Phillips DO [id number] STUDY: X-RAY - RIGHT HAND REASON FOR EXAM: Female, 53 years old. pain TECHNIQUE: 3 view(s) of the hand. COMPARISON: July 03, 2023 FINDINGS: Normal radiocarpal articulation. Normal distal radioulnar joint. Normal visualized carpal bones. Normal carpal articulations Normal carpometacarpal articulation of the thumb. Normal second through fifth carpometacarpal joints. Normal metacarpi. Normal metacarpophalangeal joint of the thumb. Normal interphalangeal joint of the thumb. Normal proximal and distal phalanges of the thumb. Normal metacarpophalangeal joints of the second through fifth fingers. Normal proximal and distal interphalangeal joints of the second through fifth fingers. Normal phalanges of the second through fifth fingers. The soft tissue structures are unremarkable. RAD/Hand Min 3 Views IMPRESSION: Normal x-ray examination of the hand. Electronically Signed: Jose Eduardo Naqvi MD at 16:28 EDT , CC: CHRISSY Lanier; Dr. Luis Phillips DO Hadoop Architect: Signed Normal [facility] Spine Cervical without Contr ason 10-04-2023 Spine Cervical without Contras [facility] Imaging Services [address] [place] [id number] Spine Cervical without Contras MR#: [id number] Acct: [id number] Name: LAKEISHA TOPETE Rep #: [id number] : 1970 F 53 From: Jose Eduardo Hernandez PCP: CHRISSY Alcantara Status: REG ER Study: Spine Cervical without Contras Date of Exam: 0 10/04/23 Exam# [id number] Ordering Dr: Luis Phillips DO [id number] STUDY: CT CERVICAL SPINE WITHOUT CONTRAST REASON FOR EXAM: Female, 53 years old. neck pain RADIATION DOSAGE (If Supplied By Facility): CTDIvol = ( 26.71 ) mGy, DLP = ( 438.40 ) mGycm TECHNIQUE: High resolution transaxial imaging was performed without contrast material. Sagittal and coronal images were reconstructed. Individualized dose optimization techniques were used for this CT. The protocol utilizes one or more of the following dose reduction techniques: automated exposure control, adjustment of mA and/or kV according to patient size,and/or use of iterative reconstruction technique. COMPARISON: None FINDINGS: Normal craniovertebral junction. Normal anterior atlantoaxial articulation. Normal odontoid process. Midline defect C1 posteriorly appears congenital. Normal cervical lordosis. Normal vertebral bodies and posterior osseous elements. C2-3: Normal endplates. Normal disc height and morphology. Normal central canal and intervertebral neuroforamina. C3-4: Normal endplates. Normal disc height and morphology. Normal central canal and intervertebral neuroforamina. C4-5: Normal endplates. Normal disc height and morphology. Normal central canal and intervertebral neuroforamina. C5-6: Normal endplates. Normal disc height and morphology. Normal central canal and intervertebral neuroforamina. C6-7: Normal endplates. Normal disc height and morphology. Normal central canal and intervertebral neuroforamina. C7-T1: Normal endplates. Normal disc height and morphology. Normal central canal and intervertebral neuroforamina. Normal visualized soft tissue structures. CT/Spine Cervical without Contras IMPRESSION: No fracture Electronically Signed: Jose Eduardo Naqvi MD at 16:24 EDT , CC: CHRISSY Lanier; Dr. Luis Phillips DO Hadoop Architect: Signed Normal [facility] 09-24-2023 [facility] LAKEISHA TOPETE ([id number]) 1970 F Date Time Provider Department 09/24/23 12:30 PM JOSE EDUARDO DOW [facility] During your visit today, we recorded the following information about you: Temperature Pulse Respiration Blood pressure 97.2 degrees 66/minute 16/minute 122/72 Weight 86 kg Jose Eduardo Dow MD 09/24/2023 1:54 PM Signed Patient presents with: Derm Problem: left buttock area lesion x 4-5 days, diarrhea, vomiting and bilateral ear pain x this am HPI: Skin Lesion: Location: left buttock Duration: 4 days Pruritis/Pain: tender Drainage/blister/pustule/u lceration: drained mucus and core yesterday in the shower Treatment: Triple antibiotic ointment Feeling sick since yesterday. Positive symptoms: bilateral Earache, Nausea, Vomiting, Diarrhea, chronic chills, fatigue, chronic vaginal bleeding Negative symptoms: Cough, Sore throat, Nasal Congestion, Rhinorrhea, fever, melena, hematochezia, hematemesis Reports history of uterine procedure with recommendation for hysterectomy if bleeding did not stop. She has never had a colonoscopy. MEDICATIONS: Current Outpatient Medications Medication Sig simvastatin (ZOCOR) 80 mg tablet Take 1 tablet by mouth once daily. ferrous sulfate 325 mg (65 mg iron) tablet Take 1 tablet by mouth two times a day. omeprazole (PRILOSEC) 40 mg capsule Take by mouth. glipiZIDE (GLUCOTROL XL) 5 mg 24 hr tablet Take 1 tablet by mouth once daily. ARIPiprazole (ABILIFY) 5 mg tablet Take 1 tablet by mouth once daily. For 30 days FLUoxetine (PROZAC) 20 mg capsule Take 1 capsule by mouth once daily. losartan (COZAAR) 25 mg tablet Take 1 tablet by mouth once daily. For 30 days meclizine (ANTIVERT) 25 mg tab Take 1 tablet by mouth two times a day as needed (dizziness). metFORMIN (GLUCOPHAGE) 500 mg tablet Take 500 mg by mouth twice daily. acetaminophen (TYLENOL EXTRA STRENGTH) 500 mg tablet Take 1 tablet by mouth every 6 hours as needed for pain. Ipratropium (ATROVENT) 17 mcg/actuation inhaler Inhale 2 Puffs as instructed every 6 hours. fluticasone (FLONASE) 50 mcg/actuation nasal spray Use 1 [place] in each nostril once daily. mometasone-formoterol (DULERA) 100-5 mcg/actuation inhaler Inhale 2 Puffs as instructed twice daily. albuterol HFA (PROAIR HFA) 90 mcg/actuation inhaler Inhale 2 Puffs as instructed every 4 hours as needed for Wheezing/Shortness of Breath. acetaminophen (TYLENOL) 325 mg tablet Take 325 mg by mouth every 6 hours as needed. Take two tablets every 6 hours as needed for pain. No current facility-administered medications for this visit. ALLERGIES: ALLERGIES Allergen Reactions Penicillins VITALS: BP 122/72 Pulse 66 Temp 36.2 ?C (97.2 ?F) Resp 16 Wt 86 kg (189 lb 9.5 oz) LMP 01/25/2023 (Approximate) SpO2 100% BMI 39.63 kg/m? PHYSICAL EXAM: GEN: mildly ill appearing HEENT: PERRL, EOMI, conjunctiva clear Ears: canals clear. 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 left lateral buttock has 5mm white moist ulceration. No erythema, induration, or fluctuant collection. Latest Ref Rng 08/24/2023 08/31/2023 WBC 3.70 - 11.00 k/uL 9.40 RBC 3.90 - 5.20 m/uL 4.27 Hemoglobin 11.5 - 15.5 g/dL 9.4 (L) Hematocrit 36.0 - 46.0 % 32.3 (L) MCV 80.0 - 100.0 fL 75.6 (L) MCH 26.0 - 34.0 pg 22.0 (L) MCHC 30.5 - 36.0 g/dL 29.1 (L) RDW-CV 11.5 - 15.0 % 17.4 (H) Platelet Count 150 - 400 k/uL 313 MPV 9.0 - 12.7 fL 11.1 Neut% % 64.0 Abs Neut (ANC) 1.45 - 7.50 k/uL 6.01 Lymph% % 26.3 Abs Lymph 1.00 - 4.00 k/uL 2.47 [place]% % 6.5 Abs [place] <0.87 k/uL 0.61 Eosin% % 2.3 Abs Eosin <0.46 k/uL 0.22 Baso% % 0.4 Abs Baso <0.11 k/uL 0.04 Immature Gran % % 0.5 IMMATURE GRANS (ABS) <0.10 k/uL 0.05 NRBC /100 WBC 0.0 Absolute nRBC <0.01 k/uL <0.01 DTYPE Auto Iron 41 - 186 ug/dL 17 (L) TIBC 232 - 386 ug/dL 400 (H) Transferrin Saturation 15.0 - 57.0 % 4.3 (L) Ferritin 14.7 - 205.1 ng/mL 5.7 (L) Folate >4.7 ng/mL 6.9 Vitamin B12 232 - 1,245 pg/mL 379 ASSESSMENT/PLAN: 1. Vomiting and diarrhea - ICD9: 787.03, 787.91, ICD10: R11.10, R19.7 (primary diagnosis) Hydration with fluids encouraged. Resume normal solid intake as tolerated. Follow up in the ER with signs of dehydration, increasing abdominal pain, high fever, or blood in vomit or stool. 2. Ulceration, skin (HCC) - ICD9: 707.9, ICD10: L98.499 Suspect drained pustule/abscess by history. Expectant management with triple antibiotic ointment and bandage. Follow up with signs of wo (more content not included)... Normal [facility] Abdomen/Pelvis W IV Cont ONL Yon 09-07-2023 Abdomen/Pelvis W IV Cont ONLY [facility] Imaging Services [address] [place] [address] Abdomen/Pelvis W IV Cont ONLY MR#: [id number] Acct: [id number] Name: LAKEISHA TOPETE Rep #: [id number] : 1970 F 53 From: Andrea Lieberman MD PCP: Care Physician,No Primary Status: REG ER Study: Abdomen/Pelvis W IV Cont ONLY Date of Exam: Exam# [id number] Ordering Dr: Amari Ashley MD [id number] STUDY: CT ABDOMEN AND PELVIS WITH CONTRAST REASON FOR EXAM: Female, 53 years old. Lower abdominal pain RADIATION DOSAGE (If Supplied By Facility): CTDIvol = ( 16.2 ) mGy, DLP = ( 1136.69 ) mGycm TECHNIQUE: Transaxial images were obtained from the dome of the diaphragm to the symphysis pubis without oral contrast. 100ML ISOVUE 370 was administered. Sagittal and coronal images were reconstructed. Individualized dose optimization techniques were used for this CT. COMPARISON: June 28, 2018 FINDINGS: The visualized lung bases are unremarkable. The visualized portions of the heart are within normal limits. Normal liver. Gallbladder not visualized possibly due to prior cholecystectomy or severely contracted state.. Normal spleen. Normal pancreas. Normal bilateral adrenal glands. Nonobstructing right renal calculus... Normal left kidney. Normal visualized stomach. Normal small intestine. Minor diverticular changes of the colon without evidence for acute diverticulitis. Appendix not visualized status post appendectomy Normal abdominal aorta. Normal inferior vena cava. Normal retroperitoneum. Normal urinary bladder. Uterus is enlarged and heterogeneous appearance likely representing multiple fibroids with fluid in the the endometrial canal. There is a left ovarian cyst measuring approximately 2.7 cm Normal abdominal wall. Lumbar spine demonstrates degenerative change. Minor spondylolisthesis at L5-S1 with bilateral spondylolysis CT/Abdomen/Pelvis W IV Cont ONLY IMPRESSION: Enlarged uterus with multiple intrauterine fibroids and fluid in the endometrial canal likely representing hemorrhage. Small left ovarian cyst. Pelvic sonogram would be useful for further evaluation if indicated Nonobstructing right renal calculus. Electronically Signed: Andrea Lieberman MD at 18:15 EDT , CC: Dr. Amari Ashley MD; No Primary Care Physician Hadoop Architect: Signed Normal [facility] CBC W/Diff, Automatedon 07-0 Absolute Lymph 2.49 X10 3/uL Normal 0.83-4.51 [facility] Comment on above: Performed By: #### L 300.4310, L501.9985 #### [facility] Laboratory [address] [place], [address] Absolute Neut 5.9 X10 3/uL Normal 2.0-7.7 [facility] Comment on above: Performed By: #### L 300.4310, L501.9985 #### [facility] Laboratory [address] [place], [address] Basophils/100 WBC (Bld) 0.4 % Normal 0-1 [facility] Comment on above: Performed By: #### L 300.4310, L501.9985 #### [facility] Laboratory [address] [place], [address] Eosinophils/100 WBC (Bld) 2.0 % Normal 0-5 [facility] Comment on above: Performed By: #### L 300.4310, L501.9985 #### [facility] Laboratory [address] [place], [address] Erythrocyte distribution width (RBC) [Ratio] 17.6 % High 11.6-14.6 [facility] Comment on above: Performed By: #### L 300.4310, L501.9985 #### [facility] Laboratory [address] [place], [address] Hematocrit (Bld) [Volume fraction] 32.6 % Low 37-47 [facility] Comment on above: Performed By: #### L 300.4310, L501.9985 #### [facility] Laboratory [address] [place], [address] Hemoglobin (Bld) [Mass/Vol] 9.6 g/dL Low 12.0-15.0 [facility] [facility] Comment on above: Performed By: #### L 300.4310, L501.9985 #### [facility] Laboratory [address] [place], [address] IG% 0.700 Normal 0.0-0.9 [facility] Comment on above: Result Comment: IG% - Immature Granulocytes (promyelocytes, myelocytes and metamyelocytes) > 1% indicates that a LEFT SHIFT is Present. Performed By: #### L 300.4310, L501.9985 #### [facility] Laboratory [address] [place], [address] Lymphocytes/100 WBC (Bld) 26.3 % Normal 19-41 [facility] Comment on above: Performed By: #### L 300.4310, L501.9985 #### [facility] Laboratory [address] [place], [address] MCH (RBC) [Entitic mass] 21.4 pg Low 27.0-32.0 [facility] Comment on above: Performed By: #### L 300.4310, L501.9985 #### [facility] Laboratory [address] [place], [address] MCHC (RBC) [Mass/Vol] 29.4 g/dL Low 32-36 [facility] Comment on above: Performed By: #### L 300.4310, L501.9985 #### [facility] Laboratory [address] [place], [address] MCV (RBC) [Entitic vol] 72.6 fL Low 81-99 [facility] Comment on above: Performed By: #### L 300.4310, L501.9985 #### [facility] Laboratory [address] [place], [address] Monocytes/100 WBC (Bld) 7.9 % Normal 0-10 [facility] Comment on above: Performed By: #### L 300.4310, L501.9985 #### [facility] Laboratory [address] [place], [address] Neutrophils/100 WBC (Bld) 62.7 % Normal 47-70 [facility] Comment on above: Performed By: #### L 300.4310, L501.9985 #### [facility] Laboratory [address] [place], [address] Nucleated RBC (Bld) [#/Vol] 0 10*3/uL Normal 0-5 [facility] Comment on above: Performed By: #### L 300.4310, L501.9985 #### [facility] Laboratory [address] [place], [address] Platelet mean volume (Bld) [Entitic vol] 10.1 fL Normal 6.2-12.0 [facility] Comment on above: Performed By: #### L 300.4310, L501.9985 #### [facility] Laboratory [address] [place], [address] Platelets (Bld) [#/Vol] 350 10*3/uL Normal 150-450 [facility] Comment on above: Performed By: #### L 300.4310, L501.9985 #### [facility] Laboratory [address] [place], [address] RBC (Bld) [#/Vol] 4.49 10*6/uL Normal 4.2-5.4 [facility] Comment on above: Performed By: #### L 300.4310, L501.9985 #### [facility] Laboratory [address] [place], [address] RDW SD 46.1 fl High 35.1-43.9 [facility] Comment on above: Performed By: #### L 300.4310, L501.9985 #### [facility] Laboratory [address] [place], [address] WBC (Bld) [#/Vol] 9.5 10*3/uL Normal 4.4-11.0 [facility] Comment on above: Performed By: #### L 300.4310, L501.9985 #### [facility] Laboratory [address] [place], [address] Absolute Neut Normal 2.0-7.7 [facility] Comment on above: Result Comment: DUPL ICATE Performed By: #### L 500.4050, L100.0100 ####[facility] [address] [place], [address] HCT Normal 37-47 [facility] Comment on above: Result Comment: DUPL ICATE Performed By: #### L 500.4050, L100.0100 ####[facility] [address] [place], [address] HGB Normal 12.0-15.0 [facility] Comment on above: Result Comment: DUPL ICATE Performed By: #### L 500.4050, L100.0100 ####[facility] [address] [place], [address] MCH Normal 27.0-32.0 [facility] Comment on above: Result Comment: DUPL ICATE Performed By: #### L 500.4050, L100.0100 ####[facility] [address] [place], [address] MCHC Normal 32-36 [facility] Comment on above: Result Comment: DUPL ICATE Performed By: #### L 500.4050, L100.0100 ####[facility] [address] [place], [address] MCV Normal 81-99 [facility] Comment on above: Result Comment: DUPL ICATE Performed By: #### L 500.4050, L100.0100 ####[facility] [address] [place], [address] NEUT% Normal 47-70 [facility] Comment on above: Result Comment: DUPL ICATE Performed By: #### L 500.4050, L100.0100 ####[facility] [address] [place], [address] PLT Normal 150-450 [facility] Comment on above: Result Comment: DUPL ICATE Performed By: #### L 500.4050, L100.0100 ####[facility] [address] [place], [address] RBC Normal 4.2-5.4 [facility] Comment on above: Result Comment: DUPL ICATE Performed By: #### L 500.4050, L100.0100 ####[facility] [address] [place], [address] RDW CV Normal 11.6-14.6 [facility] Comment on above: Result Comment: DUPL ICATE Performed By: #### L 500.4050, L100.0100 ####[facility] [address] [place], [address] RDW SD Normal 35.1-43.9 [facility] Comment on above: Result Comment: DUPL ICATE Performed By: #### L 500.4050, L100.0100 ####[facility] [address] [place], [address] WBC Normal 4.4-11.0 [facility] Comment on above: Result Comment: DUPL ICATE Performed By: #### L 500.4050, L100.0100 ####[facility] [address] [place], [address] Comprehensive Metabolic Prof cobrenda 09-07-2023 Albumin [Mass/Vol] 3.3 g/dL Normal 3.2-5.0 [facility] Comment on above: Performed By: #### L 300.4310, L501.9985 #### [facility] Laboratory [address] [place], [address] Albumin/Globulin [Mass ratio] 0.8 {ratio} Low 0.9-2.4 [facility] Comment on above: Performed By: #### L 300.4310, L501.9985 #### [facility] Laboratory [address] [place], [address] ALK P 83 U/L Normal 45-117 [facility] Comment on above: Performed By: #### L 300.4310, L501.9985 #### [facility] Laboratory [address] [place], [address] ALT [Catalytic activity/Vol] 16 U/L Normal 13-56 [facility] Comment on above: Performed By: #### L 300.4310, L501.9985 #### [facility] Laboratory [address] [place], [address] AST [Catalytic activity/Vol] 10 U/L Low 15-37 [facility] Comment on above: Performed By: #### L 300.4310, L501.9985 #### [facility] Laboratory [address] [place], [address] Bilirubin [Mass/Vol] 0.30 mg/dL Normal 0.20-1.00 [facility] Comment on above: Result Comment: For patients on eltrombopag therapy, use of Dimension [place] TBIL is not recommended. Performed By: #### L 300.4310, L501.9985 #### [facility] Laboratory [address] [place], [address] BUN/CRE 18.3 RATIO Normal 10-20 [facility] Comment on above: Performed By: #### L 300.4310, L501.9985 #### [facility] Laboratory [address] [place], [address] CA,Total 9.0 mg/dL Normal 8.5-10.1 [facility] Comment on above: Performed By: #### L 300.4310, L501.9985 #### [facility] Laboratory [address] [place], [address] Chloride [Moles/Vol] 106 mmol/L Normal 98-107 [facility] Comment on above: Performed By: #### L 300.4310, L501.9985 #### [facility] Laboratory [address] [place], [address] CO2 [Moles/Vol] 27.0 mmol/L Normal 21.0-32.0 [facility] Comment on above: Performed By: #### L 300.4310, L501.9985 #### [facility] Laboratory [address] [place], [address] Creatinine [Mass/Vol] 0.77 mg/dL Normal 0.55-1.02 [facility] Comment on above: Result Comment: The validity of the calculated GFR GFRAA in patients over 70 years has not been determined. Clinical correlation is essential. Performed By: #### L 300.4310, L501.9985 #### [facility] Laboratory [address] [place], [address] ECRCL 83.32 ml/min Normal [facility] Comment on above: Performed By: #### L 300.4310, L501.9985 #### [facility] Laboratory [address] [place], [address] EST GFR - AA 102 mL/min Normal >60 [facility] Comment on above: Result Comment: Afri can Citizen Of [place] GFR Calc Performed By: #### L 300.4310, L501.9985 #### [facility] Laboratory [address] [place], [address] GAP 5 Normal 5-15 [facility] Comment on above: Performed By: #### L 300.4310, L501.9985 #### [facility] Laboratory [address] [place], [address] GFR/1.73 sq M.predicted among non-blacks MDRD (S/P/Bld) [Vol rate/Area] 84 mL/min/{1.73_m2} Normal >60 [facility] Comment on above: Result Comment: Non- GFR Calc Performed By: #### L 300.4310, L501.9985 #### [facility] Laboratory [address] [place], [address] Globulin (S) [Mass/Vol] 4.2 g/dL Normal 2.2-4.2 [facility] Comment on above: Performed By: #### L 300.4310, L501.9985 #### [facility] Laboratory [address] [place], [address] Glucose [Mass/Vol] 127 mg/dL High 74-106 [facility] Comment on above: Result Comment: Fast ing Glucose result greater than or equal to 126 mg/dL suggests DIABETES MELLITUS per A.D.A. criteria. Performed By: #### L 300.4310, L501.9985 #### [facility] Laboratory [address] [place], [address] Potassium [Moles/Vol] 3.6 mmol/L Normal 3.5-5.1 [facility] Comment on above: Performed By: #### L 300.4310, L501.9985 #### [facility] Laboratory [address] [place], [address] Sodium [Moles/Vol] 138 mmol/L Normal 136-145 [facility] Comment on above: Performed By: #### L 300.4310, L501.9985 #### [facility] Laboratory [address] [place], [address] T PROT 7.5 g/dL Normal 6.4-8.2 [facility] Comment on above: Performed By: #### L 300.4310, L501.9985 #### [facility] Laboratory [address] [place], [address] Urea nitrogen [Mass/Vol] 14 mg/dL Normal 7-18 [facility] Comment on above: Performed By: #### L 300.4310, L501.9985 #### [facility] Laboratory [address] [place], [address] ALB Normal 3.2-5.0 [facility] Comment on above: Result Comment: DISC HARGED FROM ED Performed By: #### L 500.4050, L100.0100 #### [facility] Laboratory [address] [place], [address] ALK P Normal 45-117 [facility] Comment on above: Result Comment: DISC HARGED FROM ED Performed By: #### L 500.4050, L100.0100 #### [facility] Laboratory [address] [place], [address] ALT Normal 13-56 [facility] Comment on above: Result Comment: DISC HARGED FROM ED Performed By: #### L 500.4050, L100.0100 #### [facility] Laboratory [address] [place], [address] AST Normal 15-37 [facility] Comment on above: Result Comment: DISC HARGED FROM ED Performed By: #### L 500.4050, L100.0100 #### [facility] Laboratory [address] [place], [address] BUN Normal 7-18 [facility]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 160-189 mg/dL, High >189 mg/dL, Very high Secondary prevention optimal LDL Cholesterol levels are recommended to be < 70 mg/dL Cholesterol in LDL/Cholesterol in HDL [Mass ratio] 2.60 {ratio} High NINF - 2.54 [facility] Comment on above: Reference: 1. National Cholesterol Education Program ATP III Guideline At-A-Glance Quick Desk Reference: National Heart, Lung, and Blood [place]. National Institutes of Health. 2001: NIH Publication No. 01-3305. 2. An International Atherosclerosis Society position paper: global recommendations for the management of dyslipidemia: executive summary, Atherosclerosis. 2014: 232(2):410-413. Cholesterol in VLDL [Mass/Vol] 35 mg/dL High NINF - 30 mg/dL [facility] Cholesterol non HDL [Mass/Vol] 157 mg/dL High NINF - 130 mg/dL [facility] Comment on above: <130 mg/dL, Optimal 130-159 mg/dL, Near optimal/above optimal 160-189 mg/dL, Borderline high 190-219 mg/dL, High >219 mg/dL, Very high Secondary prevention optimal non HDL Cholesterol levels are recommended to be <100 mg/dL Cholesterol.total/Angela sterol in HDL [Mass ratio] 4.34 {ratio} NINF - 5.10 [facility] Fasting Time 12 hrs [facility] Interpretation and review of laboratory results Abnormal [facility] Triglyceride [Mass/Vol] 174 mg/dL High NINF - 150 mg/dL [facility] Comment on above: <150 mg/dL, Normal 150-199 mg/dL, Borderline high 200-499 mg/dL, High >499 mg/dL, Very high [facility] Cholesterol [Mass/Vol] 204 mg/dL High <200 [facility] Comment on above: Order Comment: Oliva griffin Type: BLOOD SPECIMENOrdering Facility: [facility] Address: [address] [place] [address] Result Comment: <200 mg/dL, Desirable 200-239 mg/dL, Borderline high >239 mg/dL, High Performed By: #### 2 4323-8, , ####[facility] LABCLIA [id number] [place] [address] [facility] Cholesterol in HDL [Mass/Vol] 47 mg/dL Normal >39 [facility] Comment on above: Order Comment: Oliva griffin Type: BLOOD SPECIMENOrdering Facility: [facility] Address: [address] [place] [address] Result Comment: 40-5 9 mg/dL, Acceptable >59 mg/dL, High: Negative risk factor for coronary heart disease <40 mg/dL, Low: Positive risk factor for coronary heart disease Performed By: #### 2 4323-8, 84904-5, ####[facility] [place] LABCLIA [id number] [place] [address] [place] Cholesterol in LDL [Mass/Vol] 122 mg/dL High <100 [facility] Comment on above: Order Comment: Speci men Type: BLOOD SPECIMENOrdering Facility: [facility] Address: [address] [place] [address] Result Comment: <100 mg/dL, Optimal 100-129 mg/dL, Near optimal/above optimal 130-159 mg/dL, Borderline high 160-189 mg/dL, High >189 mg/dL, Very high Secondary prevention optimal LDL Cholesterol levels are recommended to be < 70 mg/dL Performed By: #### 2 4323-8, 32068-7, ####[facility] [place] LABCLIA [id number] [facility] [place] [address] [place] Cholesterol in LDL/Cholesterol in HDL [Mass ratio] 2.60 {ratio} High <2.54 [facility] Comment on above: Order Comment: Speci men Type: BLOOD SPECIMENOrdering Facility: [facility] Address: [address] [address] Result Comment: Refe rence: 1. National Cholesterol Education Program ATP III Guideline At-A-Glance Quick Desk Reference: National Heart, Lung, and Blood [place]. National Institutes of Health. 2001: NIH Publication No. 01-3305. 2. An International Atherosclerosis Society position paper: global recommendations for the management of dyslipidemia: executive summary, Atherosclerosis. 2014: 232(2):410-413. Performed By: #### 2 4323-8, , ####[facility] [place] LABCLIA [id number] [place] [address] [place] Cholesterol in VLDL [Mass/Vol] 35 mg/dL High <30 [facility] Comment on above: Order Comment: Speci men Type: BLOOD SPECIMENOrdering Facility: [facility] Address: [address] [place], [place] [address] Performed By: #### 2 4323-8, , ####[facility] [place] LABCLIA [id number] [facility] [place] [address] [place] Cholesterol non HDL [Mass/Vol] 157 mg/dL High <130 [facility] Comment on above: Order Comment: Speci men Type: BLOOD SPECIMENOrdering Facility: [facility] Address: [address] [place] [address] Result Comment: <130 mg/dL, Optimal 130-159 mg/dL, Near optimal/above optimal 160-189 mg/dL, Borderline high 190-219 mg/dL, High >219 mg/dL, Very high Secondary prevention optimal non HDL Cholesterol levels are recommended to be <100 mg/dL Performed By: #### 2 4323-8, 63699-7, ####[facility] [place] LABCLIA [id number] [place] [address] [facility] Cholesterol.total/Angela sterol in HDL [Mass ratio] 4.34 {ratio} Normal <5.10 [facility] Comment on above: Order Comment: Speci men Type: BLOOD SPECIMENOrdering Facility: [facility] Address: [address] [place] [address] Performed By: #### 2 4323-8, 08494-0, ####[facility] [place] LABCLIA [id number] [place] [address] [facility] FASTING TIME [address] [facility] Comment on above: Order Comment: Speci men Type: BLOOD SPECIMENOrdering Facility: [facility] Address: [address] [place] [address] Performed By: #### 2 4323-8, 48690-8, ####[facility] [place] LABCLIA [id number] [place] [address] [facility] Triglyceride [Mass/Vol] 174 mg/dL High <150 [facility] Comment on above: Order Comment: Speci men Type: BLOOD SPECIMENOrdering Facility: [facility] Address: [address] [address] Result Comment: <150 mg/dL, Normal 150-199 mg/dL, Borderline high 200-499 mg/dL, High >499 mg/dL, Very high Performed By: #### 2 4323-8, 15220-7, ####[facility] [place] LABCLIA [id number] [place] [address] [place] [facility] MAGNESIUMOrdered By: Melisa Haro on 08-24-2023 Magnesium [Mass/Vol] 1.8 mg/dL 1.7 - 2 .3 mg/dL [facility] Comment on above: This is an addended report. These results have been addended to a previously final verified report. Magnesium SerPl-mCncon 08-23 Magnesium [Mass/Vol] 1.8 mg/dL Normal 1.7-2.3 [facility] Comment on above: Order Comment: Oliva griffin Type: BLOOD SPECIMENOrdering Facility: [facility] Address: [address] [address] Result Comment: This is an addended report. These results have been addended to a previously final verified report. Performed By: #### 2 4323-8, 24512-8, 49437-9 ####[facility] [place] LABCLIA [id number] [place] [address] [place] Magnesium [Mass/Vol]Ordered By: Marisol Haro on 08-24-2023 Interpretation and review of laboratory results Normal [facility] DISREGARD PREVIOUS I NVALID COMMENT [facility] No Panel Informationon 08-23 Interpretation and review of laboratory results Normal [facility] Interpretation and review of laboratory results Abnormal [facility] VITAMIN B12on 08-24-2023 Cobalamin (Vitamin B12) [Mass/Vol] 379 pg/mL 232 - 1245 pg/mL [facility] Vit B12 SerPl-mCncon 024 Cobalamin (Vitamin B12) [Mass/Vol] 379 pg/mL Normal 232-1245 [facility] Comment on above: Order Comment: Oliva griffin Type: BLOOD SPECIMEN [facility] Address: [address] [address] Performed By: #### 2 276-4, 2132-9, 2284-8, 68694-1 #### [facility] CLIA [id number] [address] [place] VITAMIN D 25 HYDROXYon 05-19 25-hydroxyvitamin D3 [Mass/Vol] 19.8 ng/mL Low 31.0 - 80.0 ng/mL [facility] XR Ankle - right AP and Late ral and obliqueon 05-20-2023 [facility] Laboratory - Microbiology an d Antimicrobial susceptibilityOrdered By: Shannan Laureano on 05-03-2023 SARS-CoV-2 (COVID-19) RNA ARISTIDES+probe Ql (Unsp spec) Influenzae A [facility] SARS-CoV-2 (COVID-19) RNA ARISTIDES+probe Ql (Unsp spec) Influenzae A [facility] Thin prep Papanicolaou smear with manual screeningOrdered By: Ronald Fierro on 04-07-2023 Thin prep Papanicolaou smear with manual screening 88 mg/dL 74-106 [facility] Comment on above: MANAGEMENT OF PATIEN T CARE PER NURSING PROTOCOL Influenza virus A and B and SARS-CoV-2 (COVID-19) Ag panel - Upper respiratory specimOrdered By: Shannan Laureano on 01-04-2023 SARS-CoV-2 & FLU Antigen (Rapid) SARS-CoV-2 (COVID 19) [facility] Absolute lymphocyte countOrd ered By: Rob Perdomo on 11-06-2022 Lymphocytes Auto (Unsp spec) [#/Vol] 2.08 10*3/uL 0.83-4.51 [facility] Basophil percentageOrdered B y: Rob Perdomo on 11-06-2022 Basophils/100 WBC (Bld) 0.5 % 0-1 [facility] Chloride [Moles/Vol] 107 mmol/L 98-107 [facility] Eosinophils/100 WBC (Bld) 2.1 % 0-5 [facility] Glucose [Mass/Vol] 116 mg/dL 74-106 [facility] Comment on above: Fasting Glucose resu lt from 100 to 125 mg/dL suggests IMPAIRED HOMEOSTASIS per A.D.A. criteria. Neutrophils (Bld) [#/Vol] 5.7 10*3/uL 2.0-7.7 [facility] Neutrophils/100 WBC (Bld) 66.4 % 47-70 [facility] Potassium [Moles/Vol] 3.5 mmol/L 3.5-5.1 [facility] Sodium [Moles/Vol] 140 mmol/L 136-145 [facility] WBC (Bld) [#/Vol] 8.6 10*3/uL 4.4-11.0 [facility] Blood erythrocytes count (nu mber/volume)Ordered By: Rob Perdomo on 11-06-2022 RBC (Bld) [#/Vol] 4.10 10*6/uL 4.2-5.4 [facility] Blood hemoglobin measurement (mass/volume)Ordered By: Rob Perdomo on 11-06-2022 Hemoglobin (Bld) [Mass/Vol] 8.8 g/dL 12.0-15.0 [facility] Blood lymphocytes/100 leukoc ytesOrdered By: Rob Perdomo on 11-06-2022 Lymphocytes/100 WBC (Bld) 24.1 % 19-41 [facility] Blood monocytes/100 leukocyt esOrdered By: Rob Perdomo on 11-06-2022 Monocytes/100 WBC (Bld) 6.4 % 0-10 [facility] Blood platelet mean volumeOr dered By: Rob Perdomo on 11-06-2022 Platelet mean volume (Bld) [Entitic vol] 10.0 fL 6.2-12.0 [facility] Determination of erythrocyte mean corpuscular volume (MCV)Ordered By: Rob Perdomo on 11-06-2022 MCV (RBC) [Entitic vol] 72.2 fL 81-99 [facility] Hematocrit Auto (Bld) [Volum e fraction]Ordered By: Rob Perdomo on 11-06-2022 Hematocrit (Bld) [Volume fraction] 29.6 % 37-47 [facility] Laboratory - Chemistry and C hemistry - challengeOrdered By: Rob Perdomo on 11-06-2022 CO2 [Moles/Vol] 28.0 mmol/L 21.0-32.0 [facility] Urea nitrogen/Creatinine [Mass ratio] 13.6 mg/mg 10-20 [facility] Laboratory - Hematology and Cell countsOrdered By: Rob Perdomo on 11-06-2022 Erythrocyte distribution width (RBC) [Entitic vol] 44.8 fL 35.1-43.9 [facility] Erythrocyte distribution width (RBC) [Ratio] 17.5 % 11.6-14.6 [facility] Immature granulocytes/100 WBC (Bld) 0.500 % 0.0-0.9 [facility] Comment on above: IG% - Immature Granu locytes (promyelocytes, myelocytes and metamyelocytes) > 1% indicates that a LEFT SHIFT is Present. MCH (RBC) [Entitic mass] 21.5 pg 27.0-32.0 [facility] Nucleated RBC/100 WBC (Bld) [Ratio] 0 % 0-5 [facility] MCHC Auto (RBC) [Mass/Vol]Or dered By: Rob Perdomo on 11-06-2022 MCHC (RBC) [Mass/Vol] 29.7 g/dL 32-36 [facility] No Panel InformationOrdered By: Rob Perdomo on 11-06-2022 Estimated Creatinine Clearance Calc 109.72 ml/min [facility] Estimated GFR (MDRD) Amer 96 mL/min >60 [facility] Comment on above: GFR Calc Estimated GFR (MDRD) Non-Af Amer 80 mL/min >60 [facility] Comment on above: Non- GFR Calc Platelets bldOrdered By: Diane Perdomo on 11-06-2022 Platelets (Bld) [#/Vol] 373 10*3/uL 150-450 [facility] Serum or plasma calcium sulma urement (mass/volume)Ordered By: Rob Perdomo on 11-06-2022 Calcium [Mass/Vol] 8.3 mg/dL 8.5-10.1 [facility] Serum or plasma creatinine m easurement (mass/volume)Ordered By: Rob Perdomo on 11-06-2022 Creatinine [Mass/Vol] 0.81 mg/dL 0.55-1.02 [facility] Comment on above: The validity of the calculated GFR & GFRAA in patients over 70 years has not been determined. Clinical correlation is essential. Serum or plasma urea nitroge n measurement (mass/volume)Ordered By: Rob Perdomo on 11-06-2022 Urea nitrogen [Mass/Vol] 11 mg/dL 7-18 [facility] Thin prep Papanicolaou smear with manual screeningOrdered By: Rob Perdomo on 11-06-2022 Thin prep Papanicolaou smear with manual screening 5 5-15 [facility] COVID NAAT, ROUTINEon 2022 SARS-CoV-2 (COVID-19) RNA ARISTIDES+probe Ql (Resp) Not detected See comment [facility] ROUTINE FLU A/B + RSVon FLUAV RNA ARISTIDES+probe Ql (Unsp spec) Not detected Not Detected [facility] FLUBV RNA ARISTIDES+probe Ql (Unsp spec) Not detected Not Detected [facility] RSV A RNA ARISTIDES+probe Ql (Unsp spec) Not detected Not Detected [facility] UA DIP, URINE (POC)on 2022 BILIRUBIN UA (POCT) Negative Negative [facility] CLARITY UA (POCT) Other [facility] COLOR UA (POCT) Yellow [facility] GLUCOSE UA (POCT) Negative Negative mg/dL [facility] Hemoglobin Ql (U) Large Abnormal Negative [facility] KETONE UA (POCT) Negative Negative mg/dL [facility] LEUKOCYTES UA (POCT) Moderate Abnormal Negative [facility] NITRITE UA (POCT) Negative Negative [facility] PH UA (POCT) 5.0 4.5 - 8.0 [facility] Protein Ql (U) 30 mg/dL Abnormal Negative mg/dL [facility] SPECIFIC GRAVITY UA (POCT) 1.025 1.005 - 1.030 [facility] UROBILINOGEN UA (POCT) 0.2 E.U./dL [place] [facility] E.U./dL [facility] Absolute lymphocyte countOrd ered By: ED PROVIDER on 09-09-2022 Lymphocytes Auto (Unsp spec) [#/Vol] 2.51 10*3/uL 0.83-4.51 [facility] Basophil percentageOrdered B y: ED PROVIDER on 09-09-2022 Basophil percentage 25-50 SEEN /hpf 0-5 [facility] Basophils/100 WBC (Bld) 0.5 % 0-1 [facility] Chloride [Moles/Vol] 106 mmol/L 98-107 [facility] Eosinophils/100 WBC (Bld) 2.1 % 0-5 [facility] Glucose [Mass/Vol] 151 mg/dL 74-106 [facility] Comment on above: Fasting Glucose resu lt greater than or equal to 126 mg/dL suggests DIABETES MELLITUS per A.D.A. criteria. Neutrophils (Bld) [#/Vol] 6.7 10*3/uL 2.0-7.7 [facility] Neutrophils/100 WBC (Bld) 65.7 % 47-70 [facility] Potassium [Moles/Vol] 3.4 mmol/L 3.5-5.1 [facility] Sodium [Moles/Vol] 138 mmol/L 136-145 [facility] WBC (Bld) [#/Vol] 10.2 10*3/uL 4.4-11.0 [facility] Bilirubin Test strip Ql (U)O rdered By: ED PROVIDER on 09-09-2022 Bilirubin Ql (U) Negative Negative [facility] Blood erythrocytes count (nu mber/volume)Ordered By: ED PROVIDER on 09-09-2022 RBC (Bld) [#/Vol] 3.83 10*6/uL 4.2-5.4 [facility] Blood hemoglobin measurement (mass/volume)Ordered By: ED PROVIDER on 09-09-2022 Hemoglobin (Bld) [Mass/Vol] 8.3 g/dL 12.0-15.0 [facility] Blood lymphocytes/100 leukoc ytesOrdered By: ED PROVIDER on 09-09-2022 Lymphocytes/100 WBC (Bld) 24.6 % 19-41 [facility] Blood monocytes/100 leukocyt esOrdered By: ED PROVIDER on 09-09-2022 Monocytes/100 WBC (Bld) 6.4 % 0-10 [facility] Blood platelet mean volumeOr dered By: ED PROVIDER on 09-09-2022 Platelet mean volume (Bld) [Entitic vol] 9.7 fL 6.2-12.0 [facility] Determination of erythrocyte mean corpuscular volume (MCV)Ordered By: ED PROVIDER on 09-09-2022 MCV (RBC) [Entitic vol] 75.7 fL 81-99 [facility] Glucose Glucometer (BldC) [M ass/Vol]Ordered By: ED PROVIDER on 09-09-2022 Glucose [Mass/Vol] 170 mg/dL 74-106 [facility] Comment on above: MANAGEMENT OF PATIEN T CARE PER NURSING PROTOCOL Hematocrit Auto (Bld) [Volum e fraction]Ordered By: ED PROVIDER on 09-09-2022 Hematocrit (Bld) [Volume fraction] 29.0 % 37-47 [facility] Ketones Test strip Ql (U)Ord ered By: ED PROVIDER on 09-09-2022 Ketones Ql (U) Negative Negative [facility] Laboratory - Chemistry and C hemistry - challengeOrdered By: Luis Phillips on 09-09-2022 HCG ( test) Ql (U) Negative [facility] Comment on above: Very dilute urine sp ecimens, as indicated by a low specificgravity, may not contain insurance verification representative levels of hCG. If is still suspected, a first morning urinespecimen should be collected 48 hours later and tested. Laboratory - Chemistry and C hemistry - challengeOrdered By: ED PROVIDER on 09-09-2022 CO2 [Moles/Vol] 28.0 mmol/L 21.0-32.0 [facility] Urea nitrogen/Creatinine [Mass ratio] 13.3 mg/mg 10-20 [facility] Laboratory - Hematology and Cell countsOrdered By: ED PROVIDER on 09-09-2022 Erythrocyte distribution width (RBC) [Entitic vol] 47.8 fL 35.1-43.9 [facility] Erythrocyte distribution width (RBC) [Ratio] 17.6 % 11.6-14.6 [facility] Immature granulocytes/100 WBC (Bld) 0.700 % 0.0-0.9 [facility] Comment on above: IG% - Immature Granu locytes (promyelocytes, myelocytes and metamyelocytes) > 1% indicates that a LEFT SHIFT is Present. MCH (RBC) [Entitic mass] 21.7 pg 27.0-32.0 [facility] Nucleated RBC/100 WBC (Bld) [Ratio] 0 % 0-5 [facility] MCHC Auto (RBC) [Mass/Vol]Or dered By: ED PROVIDER on 09-09-2022 MCHC (RBC) [Mass/Vol] 28.6 g/dL 32-36 [facility] Mucus LM Ql (Urine sed)Order ed By: ED PROVIDER on 09-09-2022 Mucus Ql (Urine sed) 0 SEEN /hpf [facility] Nitrite Test strip Ql (U)Ord ered By: ED PROVIDER on 09-09-2022 Nitrite Ql (U) Negative Negative [facility] No Panel InformationOrdered By: ED PROVIDER on 09-09-2022 Estimated Creatinine Clearance Calc 100.14 ml/min [facility] Estimated GFR (MDRD) Amer 85 mL/min >60 [facility] Comment on above: GFR Calc Estimated GFR (MDRD) Non-Af Amer 70 mL/min >60 [facility] Comment on above: Non- GFR Calc No Panel InformationOrdered By: Luis Phillips on 09-09-2022 Troponin I High Sensitivity 4 pg/mL 3.0-54.0 [facility] Comment on above: Please Note: [place] t Units and Gender Specific Reference Ranges. For more information see Policy Stat Procedure [place] High Sensitivity Troponin (TNIH) and attachments. Platelets bldOrdered By: ED PROVIDER on 09-09-2022 Platelets (Bld) [#/Vol] 345 10*3/uL 150-450 [facility] Protein Test strip Ql (U)Ord ered By: ED PROVIDER on 09-09-2022 Protein Ql (U) 30 mg/dl Negative [facility] Serum or plasma calcium sulma urement (mass/volume)Ordered By: ED PROVIDER on 09-09-2022 Calcium [Mass/Vol] 8.5 mg/dL 8.5-10.1 [facility] Serum or plasma creatinine m easurement (mass/volume)Ordered By: ED PROVIDER on 09-09-2022 Creatinine [Mass/Vol] 0.90 mg/dL 0.55-1.02 [facility] Comment on above: The validity of the calculated GFR & GFRAA in patients over 70 years has not been determined. Clinical correlation is essential. Serum or plasma urea nitroge n measurement (mass/volume)Ordered By: ED PROVIDER on 09-09-2022 Urea nitrogen [Mass/Vol] 12 mg/dL 7-18 [facility] Squamous epithelial cells de tection in urine sediment by light microscopyOrdered By: ED PROVIDER on 09-09-2022 Epithelial cells.squamous LM Ql (Urine sed) 0-5 SEEN /hpf 5-10 [facility] Thin prep Papanicolaou smear with manual screeningOrdered By: ED PROVIDER on 09-09-2022 Thin prep Papanicolaou smear with manual screening 4 5-15 [facility] Urine blood detectionOrdered By: ED PROVIDER on 09-09-2022 RBC Ql (U) 250 /ul Negative [facility] RBC Ql (U) 25-50 SEEN /hpf 0-5 [facility] Urine clarityOrdered By: ED PROVIDER on 09-09-2022 Clarity (U) Sl. Cloudy Clear [facility] Urine color determinationOrd ered By: ED PROVIDER on 09-09-2022 Color (U) Yellow Yellow [facility] Urine glucose detectionOrder ed By: ED PROVIDER on 09-09-2022 Glucose Ql (U) Normal mg/dl Normal [facility] Urine leukocyte esterase det ection by dipstickOrdered By: ED PROVIDER on 09-09-2022 Leukocyte esterase Test strip Ql (U) 500 /ul Negative [facility] Urine pHOrdered By: ED PROVI ALFIE on 09-09-2022 pH (U) 5.0 [pH] 5.0 - 8.0 [facility] Urine sediment bacteria coun t by microscopy (number/high power field)Ordered By: ED PROVIDER on 09-09-2022 Bacteria LM.HPF (Urine sed) [#/Area] 3 /[HPF] None Seen [facility] Urine specific gravity measu rementOrdered By: ED PROVIDER on 09-09-2022 Specific gravity (U) [Rel density] 1.025 1.002-1.03 0 [facility] Urobilinogen Auto test strip Ql (U)Ordered By: ED PROVIDER on 09-09-2022 Urobilinogen Ql (U) Normal mg/dl Normal [facility] Absolute lymphocyte countOrd ered By: Dr. Almeida on 08-24-2022 Lymphocytes Auto (Unsp spec) [#/Vol] 2.52 10*3/uL 0.83-4.51 [facility] Basophil percentageOrdered B y: Dr. Almeida on 08-24-2022 Basophils/100 WBC (Bld) 0.5 % 0-1 [facility] Bilirubin [Mass/Vol] 0.30 mg/dL 0.20-1.00 [facility] Comment on above: For patients on eltr ombopag therapy, use of Dimension [place] TBIL is not recommended. Chloride [Moles/Vol] 106 mmol/L 98-107 [facility] Eosinophils/100 WBC (Bld) 2.4 % 0-5 [facility] Glucose [Mass/Vol] 120 mg/dL 74-106 [facility] Comment on above: Fasting Glucose resu lt from 100 to 125 mg/dL suggests IMPAIRED HOMEOSTASIS per A.D.A. criteria. Neutrophils (Bld) [#/Vol] 4.9 10*3/uL 2.0-7.7 [facility] Neutrophils/100 WBC (Bld) 58.5 % 47-70 [facility] Potassium [Moles/Vol] 3.5 mmol/L 3.5-5.1 [facility] Protein [Mass/Vol] 7.8 g/dL 6.4-8.2 [facility] Sodium [Moles/Vol] 138 mmol/L 136-145 [facility] WBC (Bld) [#/Vol] 8.4 10*3/uL 4.4-11.0 [facility] Blood erythrocytes count (nu mber/volume)Ordered By: Dr. Almeida on 08-24-2022 RBC (Bld) [#/Vol] 4.73 10*6/uL 4.2-5.4 [facility] Blood hemoglobin measurement (mass/volume)Ordered By: Dr. Almeida on 08-24-2022 Hemoglobin (Bld) [Mass/Vol] 10.4 g/dL 12.0-15.0 [facility] [facility] [place] Blood lymphocytes/100 leukoc ytesOrdered By: Dr. Almeida on 08-24-2022 Lymphocytes/100 WBC (Bld) 30.0 % 19-41 [facility] [place] Blood monocytes/100 leukocyt esOrdered By: Dr. Almeida on 08-24-2022 Monocytes/100 WBC (Bld) 8.0 % 0-10 [facility] Blood platelet mean volumeOr dered By: Dr. Almeida on 08-24-2022 Platelet mean volume (Bld) [Entitic vol] 10.0 fL 6.2-12.0 [facility] [place] Determination of erythrocyte mean corpuscular volume (MCV)Ordered By: Dr. Almeida on 08-24-2022 MCV (RBC) [Entitic vol] 74.6 fL 81-99 [facility] Hematocrit Auto (Bld) [Volum e fraction]Ordered By: Dr. Almeida on 08-24-2022 Hematocrit (Bld) [Volume fraction] 35.3 % 37-47 [facility] [place] Laboratory - Chemistry and C hemistry - challengeOrdered By: Dr. Almeida on 08-24-2022 ALP [Catalytic activity/Vol] 92 U/L 45-117 [facility] [place] ALT [Catalytic activity/Vol] 15 U/L 13-56 [facility] [place] CO2 [Moles/Vol] 25.0 mmol/L 21.0-32.0 [facility] [place] Globulin (S) [Mass/Vol] 4.5 g/dL 2.2-4.2 [facility] Lipase [Catalytic activity/Vol] 25 U/L 13-75 [facility] [place] Comment on above: Please note:LIPASE r evised reference range effective 22. New Lipase methodology. Expected to produce lower values than the previous assay method. NEW Reference Range: 13 - 75 U/L Urea nitrogen/Creatinine [Mass ratio] 21.2 mg/mg 10-20 [facility] [place] Laboratory - Hematology and Cell countsOrdered By: Dr. Almeida on 08-24-2022 Erythrocyte distribution width (RBC) [Entitic vol] 50.8 fL 35.1-43.9 [facility] [place] Erythrocyte distribution width (RBC) [Ratio] 18.9 % 11.6-14.6 [facility] [place] Immature granulocytes/100 WBC (Bld) 0.600 % 0.0-0.9 [facility] [place] Comment on above: IG% - Immature Granu locytes (promyelocytes, myelocytes and metamyelocytes) > 1% indicates that a LEFT SHIFT is Present. MCH (RBC) [Entitic mass] 22.0 pg 27.0-32.0 [facility] [place] Nucleated RBC/100 WBC (Bld) [Ratio] 0 % 0-5 [facility] [place] MCHC Auto (RBC) [Mass/Vol]Or dered By: Dr. Almeida on 08-24-2022 MCHC (RBC) [Mass/Vol] 29.5 g/dL 32-36 [facility] No Panel InformationOrdered By: Dr. Almeida on 08-24-2022 Estimated Creatinine Clearance Calc 102.62 ml/min [facility] [place] Estimated GFR (MDRD) Amer 91 mL/min >60 [facility] [place] Comment on above: GFR Calc Estimated GFR (MDRD) Non-Af Amer 75 mL/min >60 [facility] [place] Comment on above: Non- GFR Calc Platelets bldOrdered By: Dr. Almeida on 08-24-2022 Platelets (Bld) [#/Vol] 328 10*3/uL 150-450 [facility] [place] Serum or plasma albumin sulma urement (mass/volume)Ordered By: Dr. Almeida on 08-24-2022 Albumin [Mass/Vol] 3.3 g/dL 3.2-5.0 [facility] Serum or plasma albumin/glob ulin mass ratioOrdered By: Dr. Almeida on 08-24-2022 Albumin/Globulin [Mass ratio] 0.7 {ratio} 0.9-2.4 [facility] [place] Serum or plasma calcium sulma urement (mass/volume)Ordered By: Dr. Almeida on 08-24-2022 Calcium [Mass/Vol] 8.9 mg/dL 8.5-10.1 [facility] Serum or plasma creatinine m easurement (mass/volume)Ordered By: Dr. Almeida on 08-24-2022 Creatinine [Mass/Vol] 0.85 mg/dL 0.55-1.02 [facility] Comment on above: The validity of the calculated GFR & GFRAA in patients over 70 years has not been determined. Clinical correlation is essential. Serum or plasma urea nitroge n measurement (mass/volume)Ordered By: Dr. Almeida on 08-24-2022 Urea nitrogen [Mass/Vol] 18 mg/dL 7-18 [facility] [place] Thin prep Papanicolaou smear with manual screeningOrdered By: Dr. Almeida on 08-24-2022 Thin prep Papanicolaou smear with manual screening 10 U/L 15-37 [facility] [place] Thin prep Papanicolaou smear with manual screening 7 5-15 [facility] [place] FERRITINon 07-29-2022 Ferritin [Mass/Vol] 5.2 ng/mL Low 8.0-388.0 [facility] Comment on above: Order Comment: fasti ng Result Comment: Arthur mmended cut-off to define IRON DEFICIENCY ANEMIA: Apparently Individuals with healthy infection or individuals inflammation 0-59 months <12 <30 5-60+ years <15 <70 women <15 (1st trimester) Performed By: #### I RPRO, A1C, BEATA #### [facility] [address] [place] [address] #### CBC #### [facility] [address] [place] [address] HBA1C AND EST AVG GLUCOSEon 07-29-2022 Glucose [Mass/Vol] 131.2 mg/dL High 65.0-125.5 [facility] Comment on above: Order Comment: fasti ng Result Comment: The Estimated Average Glucose Calculation (AGC) is based on a formula supported by the [place] [employer]. The AGC is intended to be used as an estimated average of the patient?s glucose for the time frame represented by the HgbA1c.It does not replace the need for an actual glucose test, and should not be used alone to treat patients. Performed By: #### I RPRO, A1C, BEATA #### [facility] [address] [place] [address] #### CBC #### [facility] [address] [place] [address] HbA1c (Bld) [Mass fraction] 6.2 % High 4.8-6.0 [facility] Comment on above: Order Comment: fasti ng Result Comment: Pre- diabetes reference range 5.7 - 6.4% The antibody reagent used in the HA1C method will measure any glycosylatedhemoglobin variants that are glycated at the beta-chain N terminus and have epitopes identical to that of HbA1c (amino acid sequence:(ROMEL-HIS -CELINE-THR).This includes HbS, HbG, HbH, Hb Tip,HbC,HbE etc.Other hemoglobinopathies may give incorrect results with this test. These samples must be assayed by an alternate method. Performed By: #### I RPRO, A1C, BEATA #### [facility] [address] [place] [address] #### CBC #### [facility] [address] [place] [address] IRON PROFILEon 07-29-2022 %SATURATION 5.4 % Normal 4.2-44.2 [facility] Comment on above: Order Comment: fasti ng Performed By: #### I RPRO, A1C, BEATA #### [facility] [address] [place] [address] #### CBC #### [facility] [address] [place] [address] Iron [Mass/Vol] 23 ug/dL Low 50-175 [facility] Comment on above: Order Comment: fasti ng Performed By: #### I RPRO, A1C, BEATA #### [facility] [address] [place] [address] #### CBC #### [facility] [address] [place] [address] IRON BIND CAP 429 ug/dl Normal 250-450 [facility] Comment on above: Order Comment: fasti ng Performed By: #### I RPRO, A1C, BEATA #### [facility] [address] [place] [address] #### CBC #### [facility] [address] [place] [address] CBCon 07-28-2022 Basophils (Bld) [#/Vol] 0.03 10*3/uL Normal <=0.2 [facility] Comment on above: Order Comment: fasti ng Performed By: #### I RPRO, A1C, BEATA #### [facility] [address] [place] [address] #### CBC #### [facility] [address] [place] [address] Basophils/100 WBC (Bld) 0.3 % Normal [facility] Comment on above: Order Comment: fasti ng Performed By: #### I RPRO, A1C, BEATA #### [facility] [address] [place] [address] #### CBC #### [facility] [address] [place] [address] Eosinophils (Bld) [#/Vol] 0.17 10*3/uL Normal <=0.60 [facility] Comment on above: Order Comment: fasti ng Performed By: #### I RPRO, A1C, BEATA #### [facility] [address] [place] [address] #### CBC #### [facility] [address] [place] [address] Eosinophils/100 WBC (Bld) 1.7 % Normal [facility] Comment on above: Order Comment: fasti ng Performed By: #### I RPRO, A1C, BEATA #### [facility] [address] [place] [address] #### CBC #### [facility] [address] [place] [address] Hematocrit (Bld) [Volume fraction] 35.0 % Normal 35.0-45.0 [facility] Comment on above: Order Comment: fasti ng Performed By: #### I RPRO, A1C, BEATA #### [facility] [address] [place] [address] #### CBC #### [facility] [address] [place] [address] Hemoglobin (Bld) [Mass/Vol] 10.6 g/dL Low 11.8-15.5 [facility] Comment on above: Order Comment: fasti ng Performed By: #### I RPRO, A1C, BEATA #### [facility] [address] [place] [address] #### CBC #### [facility] [address] [place] [address] Immature granulocytes (Bld) [#/Vol] 0.05 10*3/uL Normal 0.00-0.10 [facility] Comment on above: Order Comment: fasti ng Performed By: #### I RPRO, A1C, BEATA #### [facility] [address] [place] [address] #### CBC #### [facility] [address] [place] [address] Immature granulocytes/100 WBC (Bld) 0.5 % Normal [facility] Comment on above: Order Comment: fasti ng Performed By: #### I RPRO, A1C, BEATA #### [facility] [address] [place] [address] #### CBC #### [facility] [address] [place] [address] Lymphocytes (Bld) [#/Vol] 3.13 10*3/uL Normal 1.00-4.50 [facility] Comment on above: Order Comment: fasti ng Performed By: #### I RPRO, A1C, BEATA #### [facility] [address] [place] [address] #### CBC #### [facility] [address] [place] [address] Lymphocytes/100 WBC (Bld) 32.0 % Normal [facility] Comment on above: Order Comment: fasti ng Performed By: #### I RPRO, A1C, BEATA #### [facility] [address] [place] [address] #### CBC #### [facility] [address] [place] [address] MCH (RBC) [Entitic mass] 21.8 pg Low 27.0-34.0 [facility] Comment on above: Order Comment: fasti ng Performed By: #### I RPRO, A1C, BEATA #### [facility] [address] [place] [address] #### CBC #### [facility] [address] [place] [address] MCHC (RBC) [Mass/Vol] 30.3 g/dL Low 31.0-36.0 [facility] Comment on above: Order Comment: fasti ng Performed By: #### I RPRO, A1C, BEATA #### [facility] [address] [place] [address] #### CBC #### [facility] [address] [place] [address] MCV (RBC) [Entitic vol] 72.0 fL Low 81.0-100.0 [facility] Comment on above: Order Comment: fasti ng Performed By: #### I RPRO, A1C, BEATA #### [facility] [address] [place] [address] #### CBC #### [facility] [address] [place] [address] Monocytes (Bld) [#/Vol] 0.87 10*3/uL High 0.10-0.80 [facility] Comment on above: Order Comment: fasti ng Performed By: #### I RPRO, A1C, BEATA #### [facility] [address] [place] [address] #### CBC #### [facility] [address] [place] [address] MONOS 8.9 % Normal [facility] Comment on above: Order Comment: fasti ng Performed By: #### I RPRO, A1C, BEATA #### [facility] [address] [place] [address] #### CBC #### [facility] [address] [place] [address] Neutrophils (Bld) [#/Vol] 5.52 10*3/uL Normal 1.50-7.50 [facility] Comment on above: Order Comment: fasti ng Performed By: #### I RPRO, A1C, BEATA #### [facility] [address] [place] [address] #### CBC #### [facility] [address] [place] [address] Platelet mean volume (Bld) [Entitic vol] 10.1 fL Normal 8.5-13.0 [facility] Comment on above: Order Comment: fasti ng Performed By: #### I RPRO, A1C, BEATA #### [facility] [address] [place] [address] #### CBC #### [facility] [address] [place] [address] Platelets (Bld) [#/Vol] 344 10*3/uL Normal 150-400 [facility] Comment on above: Order Comment: fasti ng Performed By: #### I RPRO, A1C, BEATA #### [facility] [address] [place] [address] #### CBC #### [facility] [address] [place] [address] RBC (Bld) [#/Vol] 4.86 10*6/uL Normal 3.80-5.10 [facility] Comment on above: Order Comment: fasti ng Performed By: #### I RPRO, A1C, BEATA #### [facility] [address] [place] [address] #### CBC #### [facility] [address] [place] [address] RDW (STD DEVIATION) 47.7 fL Normal 38.0-48.0 [facility] Comment on above: Order Comment: fasti ng Performed By: #### I RPRO, A1C, BEATA #### [facility] [address] [place] [address] #### CBC #### [facility] [address] [place] [address] SEGS 56.6 % Normal [facility] Comment on above: Order Comment: fasti ng Performed By: #### I RPRO, A1C, BEATA #### [facility] [address] [place] [address] #### CBC #### [facility] [address] [place] [address] WBC (Bld) [#/Vol] 9.77 10*3/uL Normal 4.50-11.00 [facility] Comment on above: Order Comment: fasti ng Performed By: #### I RPRO, A1C, BEATA #### [facility] [address] [place] [id number] #### CBC #### [facility] [address] [place] [address] Absolute lymphocyte countOrd ered By: Dr. Perdomo on 05-25-2022 Lymphocytes Auto (Unsp spec) [#/Vol] 2.75 10*3/uL 0.83-4.51 [facility] [place] Basophil percentageOrdered B y: Dr. Perdomo on 05-25-2022 Basophils/100 WBC (Bld) 0.5 % 0-1 [facility] Chloride [Moles/Vol] 106 mmol/L 98-107 [facility] Eosinophils/100 WBC (Bld) 1.0 % 0-5 [facility] [place] Glucose [Mass/Vol] 137 mg/dL 74-106 [facility] Comment on above: Fasting Glucose resu lt greater than or equal to 126 mg/dL suggests DIABETES MELLITUS per A.D.A. criteria. Neutrophils (Bld) [#/Vol] 7.0 10*3/uL 2.0-7.7 [facility] [place] Neutrophils/100 WBC (Bld) 64.5 % 47-70 [facility] [place] Potassium [Moles/Vol] 3.2 mmol/L 3.5-5.1 [facility] Sodium [Moles/Vol] 139 mmol/L 136-145 [facility] WBC (Bld) [#/Vol] 10.8 10*3/uL 4.4-11.0 [facility] Blood erythrocytes count (nu mber/volume)Ordered By: Dr. Perdomo on 05-25-2022 RBC (Bld) [#/Vol] 4.39 10*6/uL 4.2-5.4 [facility] Blood hemoglobin measurement (mass/volume)Ordered By: Dr. Perdomo on 05-25-2022 Hemoglobin (Bld) [Mass/Vol] 9.2 g/dL 12.0-15.0 [facility] [place] Blood lymphocytes/100 leukoc ytesOrdered By: Dr. Perdomo on 05-25-2022 Lymphocytes/100 WBC (Bld) 25.5 % 19-41 [facility] [place] Blood monocytes/100 leukocyt esOrdered By: Dr. Perdomo on 05-25-2022 Monocytes/100 WBC (Bld) 8.1 % 0-10 [facility] Blood platelet mean volumeOr dered By: Dr. Perdomo on 05-25-2022 Platelet mean volume (Bld) [Entitic vol] 10.2 fL 6.2-12.0 [facility] [place] Determination of erythrocyte mean corpuscular volume (MCV)Ordered By: Dr. Perdomo on 05-25-2022 MCV (RBC) [Entitic vol] 71.5 fL 81-99 [facility] Hematocrit Auto (Bld) [Volum e fraction]Ordered By: Dr. Perdomo on 05-25-2022 Hematocrit (Bld) [Volume fraction] 31.4 % 37-47 [facility] [place] Laboratory - Chemistry and C hemistry - challengeOrdered By: Dr. Perdomo on 05-25-2022 CO2 [Moles/Vol] 28.0 mmol/L 21.0-32.0 [facility] [place] Urea nitrogen/Creatinine [Mass ratio] 14.9 mg/mg 10-20 [facility] [place] Laboratory - Hematology and Cell countsOrdered By: Dr. Perdomo on 05-25-2022 Erythrocyte distribution width (RBC) [Entitic vol] 48.7 fL 35.1-43.9 [facility] [place] Erythrocyte distribution width (RBC) [Ratio] 19.2 % 11.6-14.6 [facility] [place] Immature granulocytes/100 WBC (Bld) 0.400 % 0.0-0.9 [facility] [place] Comment on above: IG% - Immature Granu locytes (promyelocytes, myelocytes and metamyelocytes) > 1% indicates that a LEFT SHIFT is Present. MCH (RBC) [Entitic mass] 21.0 pg 27.0-32.0 [facility] [place] Nucleated RBC/100 WBC (Bld) [Ratio] 0 % 0-5 [facility] [place] MCHC Auto (RBC) [Mass/Vol]Or dered By: Dr. Perdomo on 05-25-2022 MCHC (RBC) [Mass/Vol] 29.3 g/dL 32-36 [facility] No Panel InformationOrdered By: Dr. Perdomo on 05-25-2022 Estimated Creatinine Clearance Calc 104.59 ml/min [facility] [place] Estimated GFR (MDRD) Amer 89 mL/min >60 [facility] [place] Comment on above: GFR Calc Estimated GFR (MDRD) Non-Af Amer 73 mL/min >60 [facility] [place] Comment on above: Non- GFR Calc Troponin I High Sensitivity 5 pg/mL 3.0-54.0 [facility] [place] Comment on above: Please Note: [place] t Units and Gender Specific Reference Ranges. For more information see Policy Stat Procedure [place] High Sensitivity Troponin (TNIH) and attachments. Platelets bldOrdered By: Dr. Perdomo on 05-25-2022 Platelets (Bld) [#/Vol] 329 10*3/uL 150-450 [facility] [place] Serum or plasma calcium sulma urement (mass/volume)Ordered By: Dr. Perdomo on 05-25-2022 Calcium [Mass/Vol] 9.0 mg/dL 8.5-10.1 [facility] Serum or plasma creatinine m easurement (mass/volume)Ordered By: Dr. Perdomo on 05-25-2022 Creatinine [Mass/Vol] 0.87 mg/dL 0.55-1.02 [facility] Comment on above: The validity of the calculated GFR & GFRAA in patients over 70 years has not been determined. Clinical correlation is essential. Serum or plasma urea nitroge n measurement (mass/volume)Ordered By: Dr. Perdomo on 05-25-2022 Urea nitrogen [Mass/Vol] 13 mg/dL 7-18 [facility] [place] Thin prep Papanicolaou smear with manual screeningOrdered By: Dr. Perdomo on 05-25-2022 Thin prep Papanicolaou smear with manual screening 5 5-15 [facility] [place] No Panel Informationon 05-07 NEGATED: Highlighted row Hzrad Throck[place]on:Xrmr ictnmusdexa ekgmamm XRay Ankle, Comp. Min. 3 Vie wson 05-07-2022 XRay Ankle, Comp. Min. 3 Views RADIOGRAPHS OF THE RIGHT ANKLE, MINIMUM 3 VIEWS CLINICAL HISTORY: Unspecified injury of right foot, initial encounter COMPARISON: 10/06/2018. FINDINGS: The soft tissues are within normal limits. The ankle mortise is intact. There is no fracture. IMPRESSION: No acute bony abnormality. Normal [facility] Comment on above: Order Comment: Unspe cified injury of right foot, initial encounter XRay Foot Complete Min 3 Vie wson 05-07-2022 XRay Foot Complete Min 3 Views THREE VIEWS OF THE RIGHT FOOT CLINICAL HISTORY: Unspecified injury of right foot, initial encounter COMPARISON: 10/06/2018. FINDINGS: Soft tissue swelling is seen. There is no significant joint space narrowing. There is no fracture. IMPRESSION: No acute bony abnormality. Normal [facility] Comment on above: Order Comment: Unspe cified injury of right foot, initial encounter CBC W Auto Differential pane l (Bld)on 01-05-2022 Basophils (Bld) [#/Vol] 0.5 10*3/uL [facility] Basophils (Bld) [#/Vol] 0.05 10*3/uL [facility] Eosinophils (Bld) [#/Vol] 0.18 10*3/uL [facility] Eosinophils/100 WBC (Bld) 1.7 % [facility] Erythrocyte distribution width (RBC) [Ratio] 52.1 % High [facility] Hematocrit (Bld) [Volume fraction] 29.1 % Low [facility] Hemoglobin (Bld) [Mass/Vol] 8.8 g/dL Low [facility] immature granulo absolute 10*3/uL [facility] immature granulocytes % Hzl ab [facility] Lymphocytes (Bld) [#/Vol] 2.77 10*3/uL [facility] Lymphocytes/100 WBC (Bld) 25.9 % [facility] MCH (RBC) [Entitic mass] 22.7 pg Low [facility] MCHC (RBC) [Mass/Vol] 30.2 g/dL Low Hzl [facility] MCV (RBC) [Entitic vol] 75.2 fL Low H [facility] Monocytes (Bld) [#/Vol] 0.79 10*3/uL [facility] monos % [facility] Neutrophils (Bld) [#/Vol] 6.87 10*3/uL [facility] Platelet mean volume (Bld) [Entitic vol] 10.1 fL [facility] Platelets (Bld) [#/Vol] 296 10*3/uL [facility] RBC (Bld) [#/Vol] 3.87 10*6/uL [facility] segs % [facility] WBC (Bld) [#/Vol] 10.71 10*3/uL Hzla b [facility] Iron panelon 01-05-2022 %saturation % lab [facility] Iron [Mass/Vol] 21 ug/dL Low [facility] iron bind cap ug/dL lab [facility] Laboratory - Chemistry and C hemistry - challengeon 01-05-2022 Ferritin [Mass/Vol] 5.0 ng/mL Low [facility] Laboratory - Hematology and Cell countson 01-05-2022 HbA1c (Bld) [Mass fraction] 6.1 % High [facility] No Panel Informationon 01-05 estimated avg glucose mg/dL High Hzl [facility] Surgical pathology studyon 0 09-23-2021 surg path [facility] Acute Pathology Influenza virus A and B and SARS-CoV-2 (COVID-19) and SARS-related CoV RNA panel ARISTIDES+probe (Resp)on 09-02-2021 SARS-CoV-2 (COVID-19) RNA ARISTIDES+probe Ql (Unsp spec) Positive Abnormal [facility] SARS-CoV-2 (COVID-19) RNA ARISTIDES+probe Ql (Unsp spec) Negative [facility] Basic metabolic 2000 panelon 08-28-2021 BUN/creatinine ratio [facility] Calcium [Mass/Vol] 8.7 mg/dL [facility] Chloride [Moles/Vol] 108 mmol/L Hzla [facility] Creatinine [Mass/Vol] 0.73 mg/dL Hz[facility] enzymatic CO2 mmol/L [facility] GFR >60 [facility] Glucose [Mass/Vol] 115 mg/dL High [facility] Potassium [Moles/Vol] 4.0 mmol/L [facility] Sodium [Moles/Vol] 143 mmol/L [facility] Urea nitrogen [Mass/Vol] 11 mg/dL [facility] CBC W Auto Differential pane l (Bld)on 08-28-2021 Basophils (Bld) [#/Vol] 0.4 10*3/uL [facility] Basophils (Bld) [#/Vol] 0.04 10*3/uL [facility] Eosinophils (Bld) [#/Vol] 0.12 10*3/uL [facility] Eosinophils/100 WBC (Bld) 1.1 % [facility] Erythrocyte distribution width (RBC) [Ratio] 44.2 % [facility] Hematocrit (Bld) [Volume fraction] 29.7 % Low [facility] Hemoglobin (Bld) [Mass/Vol] 8.8 g/dL Low [facility] immature granulo absolute 10*3/uL [facility] immature granulocytes % Hz[facility] Lymphocytes (Bld) [#/Vol] 3.03 10*3/uL [facility] Lymphocytes/100 WBC (Bld) 27.2 % [facility] MCH (RBC) [Entitic mass] 21.6 pg Low [facility] MCHC (RBC) [Mass/Vol] 29.6 g/dL Low Hzl [facility] MCV (RBC) [Entitic vol] 73.0 fL Low H [facility] Monocytes (Bld) [#/Vol] 0.85 10*3/uL High [facility] monos % [facility] Neutrophils (Bld) [#/Vol] 7.01 10*3/uL [facility] nucleated RBC automated # 10*3/uL [facility] nucleated RBC automated % % [facility] Platelet mean volume (Bld) [Entitic vol] 10.4 fL [facility] Platelets (Bld) [#/Vol] 410 10*3/uL High [facility] RBC (Bld) [#/Vol] 4.07 10*6/uL [facility] segs % [facility] WBC (Bld) [#/Vol] 11.13 10*3/uL High Hzla b [facility] RBC morphology panel (Bld)on 08-28-2021 Anisocytosis Ql (Bld) 1 + Abnormal Hzl ab [facility] blood smear see below [facility] hypochromia 51 -100 Abnormal [facility]lab [facility] Macrocytes Ql (Bld) 10 -50 Abnormal [facility] microcytes 10 -50 Abnormal [facility] platelet slide review increased Abnormal Hzl ab [facility] poikilocytosis 1 + Abnormal [facility] polychromasia 1 -2 Abnormal [facility] stomacytes 10 -50 Abnormal [facility] Bacteria identified Cx Nom ( U)on 08-13-2021 Unknown Analyte Abnormal [facility]lab [facility] urine culture note see below Abnormal [facility] No Panel Informationon 08-13 adenovirus F 40/41 Not detected Hzla b [facility] astrovirus Not detected [facility] C. diff (toxin A/B) Not detected Hzl ab [facility] campylobacter Not detected [facility] cryptosporidium Not detected [facility] cyclospora cayetanensis Not detected [facility] E. coli (eaec) Not detected [facility] E. coli (eiec) Not detected [facility] E. coli (epec) Not detected [facility] E. coli (etec) Not detected [facility] E. coli (stec) Not detected [facility] entamoeba histolytica Not detected H zlab [facility] giardia lamblia Not detected [facility] norovirus GI/gii Not detected [facility] plesiomonas shigelloides Not detected [facility] rotavirus A Not detected [facility]lab [facility] salmonella Not detected [facility]lab [facility] sapovirus Not detected [facility] vibrio Not detected [facility] vibrio cholerae Not detected [facility]lab [facility] yersinia enterocolitica Not detected [facility] Urinalysis complete W Reflex Culture panel (U)on 08-13-2021 amorphous 3 + Abnormal [facility] Appearance (U) cloudy Abnormal [facility] Bacteria identified Cx Nom (Unsp spec) 2 + Abnormal [facility] Bilirubin [Mass/Vol] Negative Hzla b [facility] blood large Abnormal [facility] Color (U) yellow [facility] epithelial 3 -5 Abnormal [facility] Glucose [Mass/Vol] Negative [facility] Ketones Ql (U) Negative [facility] leuk. esterase moderate Abnormal [facility] Nitrite Ql (U) Negative [facility] pH (Bld) 6.0 [pH] [facility] Protein [Mass/Vol] 30 g/dL Abnormal [facility] RBC (Bld) [#/Vol] 10*6/uL Abnormal [facility] sp. grav. 1.025 [facility] Urobilinogen (U) [Mass/Vol] 0.2 mg/dL [facility] WBC 10 -20 Abnormal lab [facility] CBC W Auto Differential pane l (Bld)on 07-02-2021 Basophils (Bld) [#/Vol] 0.4 10*3/uL [facility] Basophils (Bld) [#/Vol] 0.05 10*3/uL lab [facility] Eosinophils (Bld) [#/Vol] 0.35 10*3/uL [facility] Eosinophils/100 WBC (Bld) 2.8 % [facility] Erythrocyte distribution width (RBC) [Ratio] 47.7 % lab [facility] Hematocrit (Bld) [Volume fraction] 31.8 % Low [facility] Hemoglobin (Bld) [Mass/Vol] 9.4 g/dL Low lab [facility] immature granulo absolute 10*3/uL lab [facility] immature granulocytes % [facility] Lymphocytes (Bld) [#/Vol] 2.65 10*3/uL [facility] Lymphocytes/100 WBC (Bld) 21.1 % [facility] MCH (RBC) [Entitic mass] 22.8 pg Low [facility] MCHC (RBC) [Mass/Vol] 29.6 g/dL Low [facility] MCV (RBC) [Entitic vol] 77.2 fL Low H lab [facility] Monocytes (Bld) [#/Vol] 0.91 10*3/uL High lab [facility] monos % [facility] Neutrophils (Bld) [#/Vol] 8.54 10*3/uL High lab [facility] nucleated RBC automated # 10*3/uL lab [facility] nucleated RBC automated % % lab [facility] Platelet mean volume (Bld) [Entitic vol] 10.5 fL [facility] Platelets (Bld) [#/Vol] 347 10*3/uL lab [facility] RBC (Bld) [#/Vol] 4.12 10*6/uL lab [facility] segs % [facility] WBC (Bld) [#/Vol] 12.58 10*3/uL High Hzla b [facility] RBC morphology panel (Bld)on 07-02-2021 blood smear see below lab [facility] clumped platelets absent lab [facility] hypochromia 10 -50 Abnormal [facility] platelet slide review adequate [facility] ab [facility] Surgical pathology studyon 0 07-02-2021 surg path lab [facility] Albumin/Creatinine DL <= 20 mg/L (U) [Mass ratio]on 06-12-2021 alb/creat ratio mg/g High [facility] Albumin DL <= 20 mg/L (U) [Mass/Vol] 22.8 mg/dL High [facility] urine creatinine random mg/dL H zlab [facility] CBC W Auto Differential pane l (Bld)on 06-12-2021 Basophils (Bld) [#/Vol] 0.5 10*3/uL lab [facility] Basophils (Bld) [#/Vol] 0.06 10*3/uL lab [facility] Eosinophils (Bld) [#/Vol] 0.16 10*3/uL lab [facility] Eosinophils/100 WBC (Bld) 1.2 % [facility] Erythrocyte distribution width (RBC) [Ratio] 47.8 % lab [facility] Hematocrit (Bld) [Volume fraction] 32.4 % Low lab [facility] Hemoglobin (Bld) [Mass/Vol] 9.8 g/dL Low lab [facility] immature granulo absolute 10*3/uL [facility] immature granulocytes % [facility] Lymphocytes (Bld) [#/Vol] 3.04 10*3/uL [facility] Lymphocytes/100 WBC (Bld) 23.2 % [facility] MCH (RBC) [Entitic mass] 23.3 pg Low [facility] MCHC (RBC) [Mass/Vol] 30.2 g/dL Low [facility] MCV (RBC) [Entitic vol] 77.0 fL Low H zlab [facility] Monocytes (Bld) [#/Vol] 0.91 10*3/uL High [facility] monos % [facility] Neutrophils (Bld) [#/Vol] 8.85 10*3/uL High [facility] nucleated RBC automated # 10*3/uL [facility] nucleated RBC automated % % [facility] Platelet mean volume (Bld) [Entitic vol] 10.7 fL [facility] Platelets (Bld) [#/Vol] 352 10*3/uL [facility] RBC (Bld) [#/Vol] 4.21 10*6/uL [facility] segs % [facility] WBC (Bld) [#/Vol] 13.12 10*3/uL High Hzla b [facility] Folate+Cyanocobalamin (S/Bld ) [Interp]on 06-12-2021 Cobalamin (Vitamin B12) [Mass/Vol] 315 pg/mL [facility] folic acid NG/mL Low [facility] Iron panelon 06-12-2021 %saturation % [facility] Iron [Mass/Vol] 49 ug/dL Low [facility]lab [facility] iron bind cap ug/dL [facility] Laboratory - Chemistry and C hemistry - challengeon 06-12-2021 Cholesterol [Mass/Vol] 147 mg/dL Hz lab [facility] Cholesterol in HDL [Mass/Vol] 39 mg/dL Low [facility] Cholesterol in LDL [Mass/Vol] 63 mg/dL [facility] Ferritin [Mass/Vol] 7.1 ng/mL [facility] Triglyceride [Mass/Vol] 224 mg/dL High H zlab [facility] Laboratory - Hematology and Cell countson 06-12-2021 HbA1c (Bld) [Mass fraction] 6.4 % High [facility]lab [facility] No Panel Informationon 06-12 estimated avg glucose mg/dL High Hzl ab [facility] VLDL mg/dL Abnormal Hz[facility] COVID-19/INFLUENZA A,B MOLEC Jelani 02-11-2021 SARS-CoV-2 (COVID-19) Ab IA Ql SARS-COV-2 (KAYLIN): Not Detected INFLUENZA A (KAYLIN): Not Detected INFLUENZA B (KAYLIN): Not Detected Normal Not Detected [facility] Comment on above: Order Comment: This test was performed under the FDA's Emergency Use Authorization (EUA). Testing was performed using the Terri Brad SARS-CoV-2 RT-PCR AND Influenza A/B Nucleic Acid Test on the Brad Kaylin System. This test has not been approved for use in asymptomatic patients and its performance in this patient population has not been evaluated. Negative results do not rule out the presence of SARS-CoV-2, influenza A, and/or influenza B. Fact sheets for the EUA can be found at the following links: For Healthcare Providers: https://www.fda.gov/media/442240/download For Patients: https://www.fda.gov/media/469656/download Performed By: #### L [id number] #### [address] [place], [place] [address] [address] Tru[id number] [address] HEAD OR BRAIN WITHOUT CON TRASTon 02-11-2021 CT HEAD OR BRAIN WITHOUT CONTRAST EXAMINATION: CT BRAIN WITHOUT CONTRAST, 02/11/2021 : HISTORY: headache, dizziness COMPARISON: CT head, 02/25/2019. TECHNIQUE: Nonenhanced axial CT imaging of the brain was performed from the skull base to the vertex. Dose reduction techniques were achieved by using automated exposure control and/or adjustment of mA and/or kV according to patient size and/or use of iterative reconstruction technique. FINDINGS: No intracranial hemorrhage, edema, mass effect or midline shift is seen. The brain parenchyma, ventricles and extra-axial CSF spaces appear unremarkable for age. The calvarium and imaged facial bones appear intact. A right ethmoid retention cyst or polyp is seen on image 13 of series 3. The paranasal sinuses are otherwise clear. The bilateral mastoid air cells appear clear. IMPRESSION: No acute intracranial process. Workstation ID: [id number] Dictated by: KAIN CORBETT on WedFeb 11, 2021 9:26:35 PM EST Transcribed by: KAIN CORBETT on WedFeb 11, 2021 9:26:35 PM EST Finalized by: KAIN CORBETT on WedFeb 11, 2021 9:26:35 PM EST [facility] Comment on above: Order Comment: Injur y/Trauma or Illness?:Illness/Other How long have you had these symptoms (acute/chronic)?:Acute Reason for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 TECHNIQUE: Measurement of carotid stenosis is based on NASCET criteria. Sagittal T1, axial gradient-echo, FLAIR, EMMA T2 and diffusion imaging performed without contrast. Postcontrast, axial, coronal and sagittal T1-weighted images performed. 3D pnpq-vt-yhaxfy MR angiography of the [place] without contrast and 3D edbc-pd-twfxfn MR angiography of the carotids with contrast performed. Percent stenosis calculated using NASCET criteria. COMPARISON: CT scan performed 12/05/2018. FINDINGS: No evidence of acute infarct. Ventricles, sulci and basilar cisterns are normal in appearance. No evidence of mass, signal abnormality, restrictive diffusion or abnormal enhancement. The cerebral hemispheres, brain stem and the cerebellar hemispheres are otherwise normal. Good flow void is seen in the vertebrobasilar and carotid arteries and the sagittal and transverse sinuses. The orbital apices and infratemporal fossa are normal. The craniocervical junction is normal. Carotid bifurcations are normal in appearance. There is loss of signal at the origin of the vertebral arteries bilaterally. This may be due to stenosis or flow artifact. The origin of the common carotid arteries are normal. The cervical carotid arteries and cervical vertebral arteries are otherwise normal. Dbdz-zb-wzlavl examination of the [place] demonstrates no evidence of stenosis, occlusion or aneurysm. IMPRESSION: 1. Normal examination of the brain. No evidence of acute infarct. 2. Normal examination of the [place]. 3. Normal examination of the carotid bifurcations. The origins of the vertebral arteries are suboptimally visualized. [employer] Workstation ID: [id number] [facility] EXAMINATION: MRA COW/CAROTIDS/BRAIN WITH AND WITHOUT CONTRAST HISTORY: ischemia Injury/Trauma or Illness?:Illness/Other How long have you had these symptoms (acute/chronic)?:Acute CONTRAST: GADOTERATE MEGLUMINE 0.5 MMOL/ML (376.9 MG/ML) INTRAVENOUS SOLUTION - 16 mL, TECHNIQUE: Measurement of carotid stenosis is based on NASCET criteria. Sagittal T1, axial gradient-echo, FLAIR, EMMA T2 and diffusion imaging performed without contrast. Postcontrast, axial, coronal and sagittal T1-weighted images performed. 3D gami-mb-myarkq MR angiography of the [place] without contrast and 3D eqls-jv-olvyjs MR angiography of the carotids with contrast performed. Percent stenosis calculated using NASCET criteria. COMPARISON: CT scan performed 12/05/2018. FINDINGS: No evidence of acute infarct. Ventricles, sulci and basilar cisterns are normal in appearance. No evidence of mass, signal abnormality, restrictive diffusion or abnormal enhancement. The cerebral hemispheres, brain stem and the cerebellar hemispheres are otherwise normal. Good flow void is seen in the vertebrobasilar and carotid arteries and the sagittal and transverse sinuses. The orbital apices and infratemporal fossa are normal. The craniocervical junction is normal. Carotid bifurcations are normal in appearance. There is loss of signal at the origin of the vertebral arteries bilaterally. This may be due to stenosis or flow artifact. The origin of the common carotid arteries are normal. The cervical carotid arteries and cervical vertebral arteries are otherwise normal. Bidr-gk-rvwmqq examination of the [place] demonstrates no evidence of stenosis, occlusion or aneurysm. [facility] 1. Normal examinatio n of the brain. No evidence of acute infarct. 2. Normal examination of the [place]. 3. Normal examination of the carotid bifurcations. The origins of the vertebral arteries are suboptimally visualized. [employer]/tde Workstation ID: [id number] [facility] MRA COW/CAROTIDS/BRAIN WITH AND WITHOUT CONTRASTon 12-06-2018 MRA COW/CAROTIDS/BRAIN WITH AND WITHOUT CONTRAST EXAMINATION: MRA COW/CAROTIDS/BRAIN WITH AND WITHOUT CONTRAST HISTORY: ischemia Injury/Trauma or Illness?:Illness/Other How long have you had these symptoms (acute/chronic)?:Acute CONTRAST: GADOTERATE MEGLUMINE 0.5 MMOL/ML (376.9 MG/ML) INTRAVENOUS SOLUTION - 16 mL, TECHNIQUE: Measurement of carotid stenosis is based on NASCET criteria. Sagittal T1, axial gradient-echo, FLAIR, EMMA T2 and diffusion imaging performed without contrast. Postcontrast, axial, coronal and sagittal T1-weighted images performed. 3D hylr-cp-xvmjpk MR angiography of the [place] without contrast and 3D aaqm-wf-scbsdz MR angiography of the carotids with contrast performed. Percent stenosis calculated using NASCET criteria. COMPARISON: CT scan performed 12/05/2018. FINDINGS: No evidence of acute infarct. Ventricles, sulci and basilar cisterns are normal in appearance. No evidence of mass, signal abnormality, restrictive diffusion or abnormal enhancement. The cerebral hemispheres, brain stem and the cerebellar hemispheres are otherwise normal. Good flow void is seen in the vertebrobasilar and carotid arteries and the sagittal and transverse sinuses. The orbital apices and infratemporal fossa are normal. The craniocervical junction is normal. Carotid bifurcations are normal in appearance. There is loss of signal at the origin of the vertebral arteries bilaterally. This may be due to stenosis or flow artifact. The origin of the common carotid arteries are normal. The cervical carotid arteries and cervical vertebral arteries are otherwise normal. Bvyv-dp-kxrvfw examination of the [place] demonstrates no evidence of stenosis, occlusion or aneurysm. IMPRESSION: 1. Normal examination of the brain. No evidence of acute infarct. 2. Normal examination of the [place]. 3. Normal examination of the carotid bifurcations. The origins of the vertebral arteries are suboptimally visualized. [employer] Workstation ID: [id number] Dictated by: Naomi CARRILLO on WedDec 06, 2018 9:01:49 AM EDT Transcribed by: CARLOS WADE on WedDec 06, 2018 9:20:16 AM EDT Finalized by: Naomi CARRILLO on WedDec 06, 2018 3:41:43 PM EDT Normal [facility] Comment on above: Order Comment: Injur y/Trauma or Illness?:Illness/Other How long have you had these symptoms (acute/chronic)?:Acute Reason for exam?:RT SIDED WEAKNESS, N/T Type of Exam?:Initial Additional signs and symptoms?:CHEST TIGHTNESS POC Glucoseon 12-06-2018 Glucose [Mass/Vol] 110 mg/dL High 65 - 99 mg/dL [facility] Interpretation and review of laboratory results Abnormal [facility] Glucose [Mass/Vol] 145 mg/dL High 65 - 99 mg/dL [facility] Interpretation and review of laboratory results Abnormal [facility] US DUPLEX VENOUS LEGS BILATE RALon 12-06-2018 US DUPLEX VENOUS LEGS BILATERAL Non-Invasive Vascular Patient: EFREM SUAZO [facility] Rec#: [id number] (Age): 1970(48y) Study Date: 12/06/2018 Room#: 8214 Type: Inpatient Sex: F Reading: Werner Richmond MD, RPVI Referring: ANISHA EUBANKS Coin Machine Collector Supervisor: Lyudmila Vila RDMS, RVT Procedure Info: [id number] Study Quality: Diagnosis: R22.43 Localized swelling, mass and lump, lower limb, bilateral Lower Venous Duplex Conclusions No evidence of deep or superficial vein thrombosis in either lower extremity. Finding Grids Right Duplex Exam Spont Phasic External Iliac Y Y Common Femoral Y Y Proximal Profunda _ _ Proximal Femoral Y Y Mid Femoral Y Y Distal Femoral Y Y Popliteal Y Y Posterior Tibial _ _ Peroneal _ _ Great Saphenous _ _ Augment Color Filling Compressibility External Iliac Y Y Y Common Femoral Y Y Y Proximal Profunda _ Y _ Proximal Femoral Y Y Y Mid Femoral Y Y Y Distal Femoral Y Y Y Popliteal Y Y Y Posterior Tibial _ Y Y Peroneal _ Y Y Great Saphenous _ _ Y Peres --------- Y = Yes Left Duplex Exam Spont Phasic External Iliac Y Y Common Femoral Y Y Proximal Profunda _ _ Proximal Femoral Y Y Mid Femoral Y Y Distal Femoral Y Y Popliteal Y Y Posterior Tibial _ _ Peroneal _ _ Great Saphenous _ _ Augment Color Filling Compressibility External Iliac Y Y Y Common Femoral Y Y Y Proximal Profunda _ Y _ Proximal Femoral Y Y Y Mid Femoral Y Y Y Distal Femoral Y Y Y Popliteal Y Y Y Posterior Tibial _ Y Y Peroneal _ Y Y Great Saphenous _ _ Y Peres --------- Y = Yes Electronically signed at 12/06/2018 10:29:18 by: Werner Richmond MD, RPDINO [facility] Ultrasound duplex venous leg s bilaton 12-06-2018 Interface, Rad In artlab Xper Echopacs - 12/06/2018 10:37 AM EDT Non-Invasive Vascular Patient: EFREM SUAZO [facility]oph 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 Finding Grids Right Duplex Exam Spont Phasic External Iliac Y Y Common Femoral Y Y Proximal Profunda _ _ Proximal Femoral Y Y Mid Femoral Y Y Distal Femoral Y Y Popliteal Y Y Posterior Tibial _ _ Peroneal _ _ Great Saphenous _ _ Augment Color Filling Compressibility External Iliac Y Y Y Common Femoral Y Y Y Proximal Profunda _ Y _ Proximal Femoral Y Y Y Mid Femoral Y Y Y Distal Femoral Y Y Y Popliteal Y Y Y Posterior Tibial _ Y Y Peroneal _ Y Y Great Saphenous _ _ Y Peres --------- Y = Yes Left Duplex Exam Spont Phasic External Iliac Y Y Common Femoral Y Y Proximal Profunda _ _ Proximal Femoral Y Y Mid Femoral Y Y Distal Femoral Y Y Popliteal Y Y Posterior Tibial _ _ Peroneal _ _ Great Saphenous _ _ Augment Color Filling Compressibility External Iliac Y Y Y Common Femoral Y Y Y Proximal Profunda _ Y _ Proximal Femoral Y Y Y Mid Femoral Y Y Y Distal Femoral Y Y Y Popliteal Y Y Y Posterior Tibial _ Y Y Peroneal _ Y Y Great Saphenous _ _ Y Peres --------- Y = Yes Electronically signed at 12/06/2018 10:29:18 by: Werner Richmond MD, RPVI [facility] Non-Invasive Vascula r Patient: EFREM 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 Finding Grids Right Duplex Exam Spont Phasic External Iliac Y Y Common Femoral Y Y Proximal Profunda _ _ Proximal Femoral Y Y Mid Femoral Y Y Distal Femoral Y Y Popliteal Y Y Posterior Tibial _ _ Peroneal _ _ Great Saphenous _ _ Augment Color Filling Compressibility External Iliac Y Y Y Common Femoral Y Y Y Proximal Profunda _ Y _ Proximal Femoral Y Y Y Mid Femoral Y Y Y Distal Femoral Y Y Y Popliteal Y Y Y Posterior Tibial _ Y Y Peroneal _ Y Y Great Saphenous _ _ Y Peres --------- Y = Yes Left Duplex Exam Spont Phasic External Iliac Y Y Common Femoral Y Y Proximal Profunda _ _ Proximal Femoral Y Y Mid Femoral Y Y Distal Femoral Y Y Popliteal Y Y Posterior Tibial _ _ Peroneal _ _ Great Saphenous _ _ Augment Color Filling Compressibility External Iliac Y Y Y Common Femoral Y Y Y Proximal Profunda _ Y _ Proximal Femoral Y Y Y Mid Femoral Y Y Y Distal Femoral Y Y Y Popliteal Y Y Y Posterior Tibial _ Y Y Peroneal _ Y Y Great Saphenous _ _ Y Peres --------- Y = Yes Electronically signed at 12/06/2018 10:29:18 by: Werner Richmond MD, [facility] Panel Information NEGATED: Highlighted row Hzrad [place]:Xrmr ictnmusdexa ekgmamm Vital Signs Date Time Vital Sign Value Performing Clinician Facility 08-29-2024 21:31-0400 Body temperature 98.1 [degF] Desire Lanier SPEECH COACH-C Work Phone: [facility] [place] 08-29-2024 21:31-0400 Diastolic blood pressure 76 mm[Hg] Desire Lanier SPEECH COACH-C Work Phone: [facility] [place] 08-29-2024 21:31-0400 Heart rate 71 /min Desire Lanier SPEECH COACH-C Work Phone: [facility] [place] 08-29-2024 21:31-0400 Respiratory rate 16 /min Desire Lanier SPEECH COACH-C Work Phone: [facility] 08-29-2024 21:31-0400 SaO2% (BldA) [Mass fraction] 97 % Desire Lanier SPEECH COACH-C Work Phone: [facility] [place] 08-29-2024 21:31-0400 Systolic blood pressure 142 mm[Hg] Desire Queden SPEECH COACH-C Work Phone: [facility] [place] 08-29-2024 14:02-0400 Body height 147.32 cm Desire Queden SPEECH COACH-C Work Phone: [facility] [place] 08-29-2024 14:02-0400 Body mass index (BMI) [Ratio] 40.7 kg/m2 Desire Queden SPEECH COACH-C Work Phone: [facility] [place] 08-29-2024 14:02-0400 Body weight 88.49 kg Desire Queden SPEECH COACH-C Work Phone: [facility] [place] 07-13-2024 09:35-0400 Body height 147.3 cm Desire Queden COVER REMOVER.SU[employer]OR [employer] Work Phone: [facility] 07-13-2024 09:35-0400 Body mass index (BMI) [Ratio] 42.22 kg/m2 Desire Queden COVER REMOVER.SUPER[employer]OR [employer] Work Phone: [facility] 07-13-2024 09:35-0400 Body temperature 97.81 [degF] Desire Queden COVER REMOVER.SUPER[employer]OR [employer] Work Phone: [facility] 07-13-2024 09:35-0400 Body weight 91.63 kg Desire Queden COVER REMOVER.SUPER[employer]OR [employer] Work Phone: [facility] 07-13-2024 09:35-0400 Diastolic blood pressure 76 mm[Hg] Desire Queden COVER REMOVER.SUPER[employer]OR [employer] Work Phone: [facility] 07-13-2024 09:35-0400 Heart rate 76 /min Desire Queden COVER REMOVER.SUPERVISOR [employer] Work Phone: [facility] 07-13-2024 09:35-0400 Respiratory rate 16 /min Desire Queden COVER REMOVER.SUPER[employer]OR [employer] Work Phone: [facility] 07-13-2024 09:35-0400 SaO2% (BldA) [Mass fraction] 98 % Desire Queden COVER REMOVER.SUPERVISOR [employer] Work Phone: [facility] 07-13-2024 09:35-0400 Systolic blood pressure 124 mm[Hg] Desire Queden COVER REMOVER.SUPER[employer]OR [employer] Work Phone: [facility] 05-31-2024 16:37-0400 Body temperature 97.5 [degF] Desire Queden SPEECH COACH-C Work Phone: [facility] [place] 05-31-2024 16:37-0400 Diastolic blood pressure 74 mm[Hg] Desire Queden SPEECH COACH-C Work Phone: [facility] [place] 05-31-2024 16:37-0400 Heart rate 87 /min Desire Queden SPEECH COACH-C Work Phone: [facility] [place] 05-31-2024 16:37-0400 Respiratory rate 16 /min Desire Queden SPEECH COACH-C Work Phone: [facility] [place] 05-31-2024 16:37-0400 SaO2% (BldA) [Mass fraction] 97 % Desire Queden SPEECH COACH-C Work Phone: [facility] [place] 05-31-2024 16:37-0400 Systolic blood pressure 135 mm[Hg] Desire Queden SPEECH COACH-C Work Phone: [facility] [place] 05-31-2024 13:09-0400 Body height 144.78 cm Desire Queden SPEECH COACH-C Work Phone: [facility] [place] 05-31-2024 13:09-0400 Body mass index (BMI) [Ratio] 42.7 kg/m2 Desire Queden SPEECH COACH-C Work Phone: [facility] [place] 05-31-2024 13:09-0400 Body weight 89.67 kg Desire Queden SPEECH COACH-C Work Phone: [facility] [place] 05-30-2024 19:31-0400 Body temperature 97.2 [degF] Desire Queden SPEECH COACH-C Work Phone: [facility] [place] 05-30-2024 19:31-0400 Diastolic blood pressure 90 mm[Hg] Desire Queden SPEECH COACH-C Work Phone: [facility] [place] 05-30-2024 19:31-0400 Heart rate 98 /min Desire Queden SPEECH COACH-C Work Phone: [facility] [place] 05-30-2024 19:31-0400 Respiratory rate 22 /min Desire Queden SPEECH COACH-C Work Phone: [facility] [place] 05-30-2024 19:31-0400 SaO2% (BldA) [Mass fraction] 95 % Desire Queden SPEECH COACH-C Work Phone: [facility] [place] 05-30-2024 19:31-0400 Systolic blood pressure 164 mm[Hg] Desire Queden SPEECH COACH-C Work Phone: [facility] [place] 05-30-2024 16:02-0400 Body height 144.78 cm Desire Queden SPEECH COACH-C Work Phone: [facility] [place] 05-30-2024 16:02-0400 Body mass index (BMI) [Ratio] 43.8 kg/m2 Desire Queden SPEECH COACH-C Work Phone: [facility] [place] 05-30-2024 16:02-0400 Body weight 91.9 kg Desire Queden SPEECH COACH-C Work Phone: [facility] [place] 05-12-2024 04:58-0400 Body temperature 98 [degF] Desire Queden SPEECH COACH-C Work Phone: [facility] [place] 05-12-2024 04:58-0400 Diastolic blood pressure 78 mm[Hg] Desire Queden SPEECH COACH-C Work Phone: [facility] [place] 05-12-2024 04:58-0400 Heart rate 77 /min Desire Queden SPEECH COACH-C Work Phone: [facility] [place] 05-12-2024 04:58-0400 Respiratory rate 18 /min Desire Queden SPEECH COACH-C Work Phone: [facility] [place] 05-12-2024 04:58-0400 SaO2% (BldA) [Mass fraction] 97 % Desire Queden SPEECH COACH-C Work Phone: [facility] [place] 05-12-2024 04:58-0400 Systolic blood pressure 158 mm[Hg] Desire Queden SPEECH COACH-C Work Phone: [facility] [place] 05-12-2024 01:55-0400 Body height 144.78 cm Desire Queden SPEECH COACH-C Work Phone: [facility] [place] 05-12-2024 01:55-0400 Body mass index (BMI) [Ratio] 45.3 kg/m2 Desire Queden SPEECH COACH-C Work Phone: [facility] [place] 05-12-2024 01:55-0400 Body weight 95.1 kg Desire Queden SPEECH COACH-C Work Phone: [facility] [place] 04-28-2024 14:06-0500 Heart rate 89 /min Desire Queden SPEECH COACH-C Work Phone: [facility] [place] 04-28-2024 14:06-0500 Respiratory rate 18 /min Desire Queden SPEECH COACH-C Work Phone: [facility] [place] 04-28-2024 14:06-0500 SaO2% (BldA) [Mass fraction] 97 % Desire Queden SPEECH COACH-C Work Phone: [facility] [place] 04-28-2024 12:38-0500 Body mass index (BMI) [Ratio] 44.9 kg/m2 Desire Queden SPEECH COACH-C Work Phone: [facility] [place] 04-28-2024 12:38-0500 Body temperature 98.4 [degF] Desire Queden SPEECH COACH-C Work Phone: [facility] [place] 04-28-2024 12:38-0500 Body weight 94.2 kg Desire Queden SPEECH COACH-C Work Phone: [facility] [place] 04-28-2024 12:38-0500 Diastolic blood pressure 78 mm[Hg] Desire Queden SPEECH COACH-C Work Phone: [facility] [place] 04-28-2024 12:38-0500 Systolic blood pressure 129 mm[Hg] Desire Queden SPEECH COACH-C Work Phone: [facility] [place] 04-27-2024 14:41-0500 Body mass index (BMI) [Ratio] 42.48 kg/m2 Enrique Mario COVER REMOVER.SUPERVISOR [employer] Work Phone: [facility] 04-27-2024 14:41-0500 Body temperature 97.2 [degF] Enrique Martin COVER REMOVER.SUPERVISOR [employer] Work Phone: [facility] 04-27-2024 14:41-0500 Body weight 92.2 kg Enrique Martin COVER REMOVER.SUPERVISOR [employer] Work Phone: [facility] 04-27-2024 14:41-0500 Diastolic blood pressure 89 mm[Hg] Enrique Mario COVER REMOVER.SUPERVISOR [employer]ING Work Phone: [facility] 04-27-2024 14:41-0500 Heart rate 75 /min Enrique Martin COVER REMOVER.SUPERVISOR [employer] Work Phone: [facility] 04-27-2024 14:41-0500 Respiratory rate 18 /min Enrique Maritn COVER REMOVER.SUPERVISOR [employer] Work Phone: [facility] 04-27-2024 14:41-0500 SaO2% (BldA) [Mass fraction] 99 % Enrique Martin COVER REMOVER.SUPERVISOR [employer] Work Phone: [facility] 04-27-2024 14:41-0500 Systolic blood pressure 145 mm[Hg] Enrique Martin COVER REMOVER.SUPERVISOR [employer]ING Work Phone: [facility] 03-22-2024 13:31-0500 Body mass index (BMI) [Ratio] 41.84 kg/m2 Sean An PA-C Work Phone: [facility] 03-22-2024 13:31-0500 Body temperature 97.5 [degF] Sean Clutter PA-C Work Phone: [facility] 03-22-2024 13:31-0500 Body weight 90.8 kg Sean Clutter PA-C Work Phone: [facility] 03-22-2024 13:31-0500 Diastolic blood pressure 89 mm[Hg] Sean Clutter PA-C Work Phone: [facility] 03-22-2024 13:31-0500 Heart rate 71 /min Sean Clutter PA-C Work Phone: [facility] 03-22-2024 13:31-0500 Respiratory rate 18 /min Sean Clutter PA-C Work Phone: [facility] 03-22-2024 13:31-0500 SaO2% (BldA) [Mass fraction] 99 % Sean Clutter PA-C Work Phone: [facility] 03-22-2024 13:31-0500 Systolic blood pressure 147 mm[Hg] Sean Clutter PA-C Work Phone: [facility] 01-12-2024 13:35-0500 Body temperature 97.59 [degF] Treatment Wstr Work Phone: [facility] 01-12-2024 13:35-0500 Diastolic blood pressure 90 mm[Hg] Treatment Wstr Work Phone: [facility] 01-12-2024 13:35-0500 Heart rate 78 /min Treatment Wstr Work Phone: [facility] 01-12-2024 13:35-0500 Respiratory rate 18 /min Treatment Wstr Work Phone: [facility] 01-12-2024 13:35-0500 SaO2% (BldA) [Mass fraction] 98 % Treatment Wstr Work Phone: [facility] 01-12-2024 13:35-0500 Systolic blood pressure 159 mm[Hg] Treatment Wstr Work Phone: [facility] 12-23-2023 15:16-0400 Body mass index (BMI) [Ratio] 39.5 kg/m2 Emily Plunkett MD Work Phone: [facility] 12-23-2023 15:16-0400 Body weight 85.73 kg Emily Plunkett MD Work Phone: [facility] 12-23-2023 15:16-0400 Diastolic blood pressure 78 mm[Hg] Emily Plunkett MD Work Phone: [facility] 12-23-2023 15:16-0400 Systolic blood pressure 122 mm[Hg] Emily Plunkett MD Work Phone: [facility] 12-11-2023 11:24-0400 Body mass index (BMI) [Ratio] 39.72 kg/m2 Krislyn Aberegg PA Work Phone: [facility] 12-11-2023 11:24-0400 Body temperature 97.5 [degF] Krislyn Aberegg PA Work Phone: [facility] 12-11-2023 11:24-0400 Body weight 86.2 kg Krislyn Aberegg PA Work Phone: [facility] 12-11-2023 11:24-0400 Diastolic blood pressure 80 mm[Hg] Krislyn Aberegg PA Work Phone: [facility] 12-11-2023 11:24-0400 Heart rate 90 /min Krislyn Aberegg PA Work Phone: [facility] 12-11-2023 11:24-0400 Respiratory rate 16 /min Krislyn Aberegg PA Work Phone: [facility] 12-11-2023 11:24-0400 SaO2% (BldA) [Mass fraction] 99 % Krislyn Aberegg PA Work Phone: [facility] 12-11-2023 11:24-0400 Systolic blood pressure 122 mm[Hg] Krislyn Aberegg PA Work Phone: [facility] 11-24-2023 11:20-0400 Body mass index (BMI) [Ratio] 39.69 kg/m2 Emily Plunkett MD Work Phone: [facility] 11-24-2023 11:20-0400 Body weight 86.14 kg Emily Plunkett MD Work Phone: [facility] 11-24-2023 11:20-0400 Diastolic blood pressure 76 mm[Hg] Emily Plunkett MD Work Phone: [facility] 11-24-2023 11:20-0400 Systolic blood pressure 138 mm[Hg] Emily Plunkett MD Work Phone: [facility] 11-17-2023 14:37-0400 Body mass index (BMI) [Ratio] 39.92 kg/m2 Suze Pleitez APRN.CNM Work Phone: [facility] 11-17-2023 14:37-0400 Body weight 86.64 kg Suze Pleitez COVER REMOVER.CNM Work Phone: [facility] 11-17-2023 14:37-0400 Diastolic blood pressure 78 mm[Hg] Suze Pleitez COVER REMOVER.CNM Work Phone: [facility] 11-17-2023 14:37-0400 Systolic blood pressure 116 mm[Hg] Suze Pleitez COVER REMOVER.CNM Work Phone: [facility] 10-26-2023 15:11-0400 Body mass index (BMI) [Ratio] 39.9 kg/m2 Krislyn Aberegg PA Work Phone: [facility] 10-26-2023 15:11-0400 Body temperature 98.29 [degF] Krislyn Aberegg PA Work Phone: [facility] 10-26-2023 15:11-0400 Body weight 86.6 kg Krislyn Aberegg PA Work Phone: [facility] 08-27-2024 15:11-0400 Diastolic blood pressure 76 mm[Hg] Krislyn Aberegg PA Work Phone: [facility] 10-26-2023 [id number] Heart rate 90 /min Krislyn Aberegg PA Work Phone: [facility] 10-26-2023 [id number] Respiratory rate 16 /min Krislyn Aberegg PA Work Phone: [facility] 10-26-2023 15:11-0400 SaO2% (BldA) [Mass fraction] 97 % Krislyn Aberegg PA Work Phone: [facility] 10-26-2023 15:11-0400 Systolic blood pressure 136 mm[Hg] Krislyn Aberegg PA Work Phone: [facility] 10-20-2023 13:40-0400 Body mass index (BMI) [Ratio] 39.29 kg/m2 Suze Pleitez APRN.CNM Work Phone: [facility] 10-20-2023 13:40-0400 Body weight 85.28 kg Suze Pleitez APRN.CNM Work Phone: [facility] 10-20-2023 13:40-0400 Diastolic blood pressure 74 mm[Hg] Suze Pleitez APRN.CNM Work Phone: [facility] 10-20-2023 13:40-0400 Systolic blood pressure 130 mm[Hg] Suze Pleitez APRN.CNM Work Phone: [facility] 09-24-2023 12:33-0400 Body mass index (BMI) [Ratio] 39.63 kg/m2 Jose Eduardo Dow MD Work Phone: [facility] 09-24-2023 12:33-0400 Body temperature 97.2 [degF] Jose Eduardo Dow MD Work Phone: [facility] 09-24-2023 12:33-0400 Body weight 86 kg Jose Eduardo Dow MD Work Phone: [facility] 09-24-2023 12:33-0400 Diastolic blood pressure 72 mm[Hg] Jose Eduardo Dow MD Work Phone: [facility] 09-24-2023 12:33-0400 Heart rate 66 /min Jose Eduardo Dow MD Work Phone: [facility] 09-24-2023 12:33-0400 Respiratory rate 16 /min Jose Eduardo Dow MD Work Phone: [facility] 09-24-2023 12:33-0400 SaO2% (BldA) [Mass fraction] 100 % Jose Eduardo Dow MD Work Phone: [facility] 09-24-2023 12:33-0400 Systolic blood pressure 122 mm[Hg] Jose Eduardo Dow MD Work Phone: [facility] 08-31-2023 13:21-0400 Body mass index (BMI) [Ratio] 39.03 kg/m2 Krislyn Aberegg PA Work Phone: [facility] 08-31-2023 13:21-0400 Body temperature 97.9 [degF] Krislyn Aberegg PA Work Phone: [facility] 08-31-2023 13:21-0400 Body weight 84.7 kg Krislyn Aberegg PA Work Phone: [facility] 08-31-2023 13:21-0400 Diastolic blood pressure 82 mm[Hg] Krislyn Aberegg PA Work Phone: [facility] 08-31-2023 13:21-0400 Heart rate 73 /min Krislyn Aberegg PA Work Phone: [facility] 08-31-2023 13:21-0400 Respiratory rate 18 /min Krislyn Aberegg PA Work Phone: [facility] 08-31-2023 13:21-0400 SaO2% (BldA) [Mass fraction] 98 % Krislyn Aberegg PA Work Phone: [facility] 08-31-2023 13:21-0400 Systolic blood pressure 130 mm[Hg] Pasquale SHAHID Work Phone: [facility] 08-24-2023 14:03-0400 Body height 147.3 cm Desire Queden COVER REMOVER.SUPER[employer]OR [employer] Work Phone: [facility] 08-24-2023 14:03-0400 Body mass index (BMI) [Ratio] 39.29 kg/m2 Desire Queden COVER REMOVER.SUPER[employer]OR [employer] Work Phone: [facility] 08-24-2023 14:03-0400 Body temperature 97.81 [degF] Desire Queden COVER REMOVER.SUPERVISOR [employer] Work Phone: [facility] 08-24-2023 14:03-0400 Body weight 85.28 kg Desire Queden COVER REMOVER.SUPERVISOR [employer] Work Phone: [facility] 08-24-2023 14:03-0400 Diastolic blood pressure 76 mm[Hg] Desire Queden COVER REMOVER.SUPERVISOR [employer] Work Phone: [facility] 08-24-2023 14:03-0400 Heart rate 77 /min Desire Queden COVER REMOVER.SUPERVISOR [employer] Work Phone: [facility] 08-24-2023 14:03-0400 Respiratory rate 16 /min Desire Queden COVER REMOVER.SUPERVISOR [employer] Work Phone: [facility] 08-24-2023 14:03-0400 SaO2% (BldA) [Mass fraction] 97 % Desire Queden COVER REMOVER.SUPERVISOR [employer] Work Phone: [facility] 08-24-2023 14:03-0400 Systolic blood pressure 122 mm[Hg] Desire Queden COVER REMOVER.SUPERVISOR [employer] Work Phone: [facility] 07-03-2023 14:130400 Body height 144.78 cm [facility] 07-03-2023 14:130400 Body mass index (BMI) [Ratio] 40.4 kg/m2 [facility] [place] 07-03-2023 14:13-0400 Body temperature 96.1 [degF] [facility] 07-03-2023 14:13-0400 Body weight 84.64 kg [facility] 07-03-2023 14:13-0400 Diastolic blood pressure 79 mm[Hg] [facility] [place] 07-03-2023 14:13-0400 Heart rate 80 /min [facility] 07-03-2023 14:13-0400 Respiratory rate 16 /min [facility] 07-03-2023 14:13-0400 SaO2% (BldA) [Mass fraction] 97 % [facility] [place] 07-03-2023 14:13-0400 Systolic blood pressure 148 mm[Hg] [facility] [place] 05-03-2023 13:43-0500 Body temperature 98 [degF] [facility] Work Phone: 7(636)244-563023 [place] [address] 05-03-2023 13:43-0500 Diastolic blood pressure 73 mm[Hg] [facility] Work Phone: 2(906)953-589957 [address] 05-03-2023 13:43-0500 Heart rate 83 /min [facility] Work Phone: 9(461)390-343757 [address] 05-03-2023 13:43-0500 Respiratory rate 20 /min [facility] Work Phone: 3(017)609-159157 [address] 05-03-2023 13:43-0500 SaO2% (BldA) [Mass fraction] 97 % [facility] Work Phone: 6(001)551-481501 [place] [address] 05-03-2023 13:43-0500 Systolic blood pressure 151 mm[Hg] [facility] Work Phone: 4(652)668-999757 [address] 05-03-2023 11:33-0500 Body height 144.78 cm [facility] Work Phone: 5(567)828-294657 [address] 05-03-2023 11:33-0500 Body mass index (BMI) [Ratio] 38.5 kg/m2 [facility] Work Phone: 2(267)216-985957 [address] 05-03-2023 11:33-0500 Body weight 80.73 kg [facility] Work Phone: 2(803)002-491123 [place] [address] 04-07-2023 15:49-0500 Diastolic blood pressure 74 mm[Hg] [facility] Work Phone: 4(056)811-761823 [place] [address] 04-07-2023 15:49-0500 Heart rate 62 /min [facility] Work Phone: 9(899)283-960423 [place] [address] 04-07-2023 15:49-0500 Respiratory rate 15 /min [facility] Work Phone: 7(490)850-132523 [place] [address] 04-07-2023 15:49-0500 SaO2% (BldA) [Mass fraction] 97 % [facility] Work Phone: 7(410)272-315723 [place] [address] 04-07-2023 15:49-0500 Systolic blood pressure 126 mm[Hg] [facility] Work Phone: 6(757)326-015323 [place] [address] 04-07-2023 13:38-0500 Body height 144.78 cm [facility] Work Phone: 1(634)328-902823 [place] [address] 04-07-2023 13:38-0500 Body mass index (BMI) [Ratio] 39.6 kg/m2 [facility] Work Phone: 3(678)181-548723 [place] [address] 04-07-2023 13:38-0500 Body temperature 96.8 [degF] [facility] Work Phone: 9(387)325-962423 [place] [address] 04-07-2023 13:38-0500 Body weight 83.23 kg [facility] Work Phone: 8(875)854-461823 [place] [address] 02-10-2023 11:12-0500 Body height 144.78 cm [facility] Work Phone: 3(238)218-253423 [place] [address] 02-10-2023 11:12-0500 Body mass index (BMI) [Ratio] 41.2 kg/m2 [facility] Work Phone: 8(436)492-938323 [place] [address] 02-10-2023 11:12-0500 Body temperature 97.6 [degF] [facility] Work Phone: 9(803)752-741023 [place] [address] 02-10-2023 11:12-0500 Body weight 86.36 kg [facility] Work Phone: [facility] [place] 02-10-2023 11:12-0500 Diastolic blood pressure 105 mm[Hg] [facility] Work Phone: [facility] [place] 02-10-2023 11:12-0500 Heart rate 62 /min [facility] Work Phone: [facility] [place] 02-10-2023 11:12-0500 Respiratory rate 14 /min [facility] Work Phone: [facility] [place] 02-10-2023 11:12-0500 SaO2% (BldA) [Mass fraction] 98 % [facility] Work Phone: [facility] [place] 02-10-2023 11:12-0500 Systolic blood pressure 144 mm[Hg] [facility] Work Phone: [facility] [place] 02-05-2023 12:29-0500 Body temperature 97.2 [degF] Suze Arguelles COVER REMOVER.SUPER[employer]OR [employer] Work Phone: [facility] 02-05-2023 12:29-0500 Body weight 83.92 kg Suze Arguelles COVER REMOVER.SUPER[employer]OR [employer] Work Phone: [facility] 02-05-2023 12:29-0500 Diastolic blood pressure 86 mm[Hg] Suze Arguelles COVER REMOVER.SUPER[employer]OR [employer] Work Phone: [facility] 02-05-2023 12:29-0500 Heart rate 69 /min Suze Arguelles COVER REMOVER.SUPER[employer]OR [employer] Work Phone: [facility] 02-05-2023 12:29-0500 Respiratory rate 18 /min Suze Arguelles COVER REMOVER.SUPER[employer]OR [employer] Work Phone: [facility] 02-05-2023 12:29-0500 SaO2% (BldA) [Mass fraction] 99 % Suze Arguelles COVER REMOVER.SUPER[employer]OR [employer] Work Phone: [facility] 02-05-2023 12:29-0500 Systolic blood pressure 128 mm[Hg] Suze Arguelles COVER REMOVER.SUPER[employer]OR [employer] Work Phone: [facility] 01-04-2023 10:28-0500 Body mass index (BMI) [Ratio] 40.7 kg/m2 [facility] Work Phone: 9(907)282-738823 [place] [address] 01-04-2023 10:28-0500 Body temperature 97.4 [degF] [facility] Work Phone: 2(963)287-603423 [place] [address] 01-04-2023 10:28-0500 Body weight 85.36 kg [facility] Work Phone: 2(995)865-143623 [place] [address] 01-04-2023 10:28-0500 Diastolic blood pressure 92 mm[Hg] [facility] Work Phone: 5(173)354-081223 [place] [address] 01-04-2023 10:28-0500 Heart rate 90 /min [facility] Work Phone: 9(524)178-191223 [place] [address] 01-04-2023 10:28-0500 Respiratory rate 16 /min [facility] Work Phone: 4(562)889-884523 [place] [address] 01-04-2023 10:28-0500 SaO2% (BldA) [Mass fraction] 99 % [facility] Work Phone: 6(655)631-608623 [place] [address] 01-04-2023 10:28-0500 Systolic blood pressure 155 mm[Hg] [facility] Work Phone: 8(171)031-686123 [place] [address] 12-21-2022 22:12-0400 Body mass index (BMI) [Ratio] 40.5 kg/m2 [facility] Work Phone: 6(701)055-065623 [place] [address] 12-21-2022 22:12-0400 Body weight 85 kg [facility] Work Phone: 3(388)929-484923 [place] [address] 12-21-2022 20:08-0400 Body height 144.78 cm [facility] Work Phone: 0(449)106-733323 [place] [address] 12-21-2022 20:08-0400 Body temperature 96.5 [degF] [facility] Work Phone: 9(162)332-580623 [place] [address] 12-21-2022 20:08-0400 Diastolic blood pressure 83 mm[Hg] [facility] Work Phone: 1(747)980-181323 [place] [address] 12-21-2022 20:08-0400 Heart rate 81 /min [facility] Work Phone: [facility] 12-21-2022 20:08-0400 Respiratory rate 16 /min [facility] Work Phone: [facility] [place] 12-21-2022 20:08-0400 SaO2% (BldA) [Mass fraction] 100 % [facility] Work Phone: [facility] 12-21-2022 20:08-0400 Systolic blood pressure 166 mm[Hg] [facility] Work Phone: [facility] [place] 12-12-2022 13:21-0400 Body temperature 98.01 [degF] Katherine Praisler-Wood COVER REMOVER.SUPER[employer]OR [employer] Work Phone: [facility] 12-12-2022 13:21-0400 Body weight 85.55 kg Katherine Praisler-Wood COVER REMOVER.SUPERVISOR [employer]AD[employer] Work Phone: [facility] 12-12-2022 13:21-0400 Diastolic blood pressure 78 mm[Hg] Katherine Praisler-Wood COVER REMOVER.SUPERVISOR [employer] Work Phone: [facility] 12-12-2022 13:21-0400 Heart rate 67 /min Katherine Praisler-Wood COVER REMOVER.SUPERVISOR [employer]ADING Work Phone: [facility] 12-12-2022 13:21-0400 Respiratory rate 20 /min Katherine Praisler-Wood COVER REMOVER.SUPERVISOR [employer]ADING Work Phone: [facility] 12-12-2022 13:21-0400 SaO2% (BldA) [Mass fraction] 99 % Katherine Praisler-Wood COVER REMOVER.SUPERVISOR [employer]ADING Work Phone: [facility] 12-12-2022 13:21-0400 Systolic blood pressure 114 mm[Hg] Katherine Praisler-Wood COVER REMOVER.SUPERVISOR [employer]ADING Work Phone: [facility] 11-06-2022 13:05-0400 Respiratory rate 16 /min [facility] Work Phone: 6(350)268-961801 [place] [address] 11-06-2022 10:25-0400 Body height 144.78 cm Center Work Phone: 0(479)328-238323 [place] [address] 11-06-2022 10:25-0400 Body mass index (BMI) [Ratio] 39.9 kg/m2 [facility] Work Phone: 1(960)602-145223 [place] [address] 11-06-2022 10:25-0400 Body temperature 96.9 [degF] [facility] Work Phone: 4(919)250-589923 [place] [address] 11-06-2022 10:25-0400 Body weight 83.64 kg Center Work Phone: 3(530)350-616423 [place] [address] 11-06-2022 10:25-0400 Diastolic blood pressure 92 mm[Hg] [facility] Work Phone: 4(399)033-892923 [place] [address] 11-06-2022 10:25-0400 Heart rate 76 /min [facility] Work Phone: 9(235)567-506123 [place] [address] 11-06-2022 10:25-0400 SaO2% (BldA) [Mass fraction] 100 % [facility] Work Phone: 6(167)782-348223 [place] [address] 11-06-2022 10:25-0400 Systolic blood pressure 153 mm[Hg] [facility] Work Phone: 7(077)229-830123 [place] [address] 11-05-2022 10:29-0400 Body mass index (BMI) [Ratio] 41.1 kg/m2 [facility] Work Phone: 6(521)789-261923 [place] [address] 11-05-2022 10:29-0400 Body temperature 98.5 [degF] [facility] Work Phone: 7(868)256-327223 [place] [address] 11-05-2022 10:29-0400 Body weight 86.18 kg [facility] Work Phone: 7(292)294-809123 [place] [address] 11-05-2022 10:29-0400 Diastolic blood pressure 87 mm[Hg] [facility] Work Phone: 0(292)869-031023 [place] [address] 11-05-2022 10:29-0400 Heart rate 92 /min [facility] Work Phone: 1(843)377-918423 [place] [address] 11-05-2022 10:29-0400 Respiratory rate 16 /min [facility] Work Phone: [facility] 11-05-2022 10:29-0400 SaO2% (BldA) [Mass fraction] 97 % [facility] Work Phone: [facility] 11-05-2022 10:29-0400 Systolic blood pressure 152 mm[Hg] [facility] Work Phone: [facility] 10-29-2022 15:23-0400 Body temperature 98.49 [degF] Katherine Praisler-Wood COVER REMOVER.SUPERVISOR [employer] GRADING Work Phone: [facility] 10-29-2022 15:23-0400 Body weight 82.1 kg Katherine Praisler-Wood COVER REMOVER.SUPERVISOR [employer] GRADING Work Phone: [facility] 10-29-2022 15:23-0400 Diastolic blood pressure 82 mm[Hg] Katherine Praisler-Wood COVER REMOVER.SUPERVISOR [employer] GRADING Work Phone: [facility] 10-29-2022 15:23-0400 Heart rate 96 /min Katherine Praisler-Wood COVER REMOVER.SUPERVISOR FR[employer] GRADING Work Phone: [facility] 10-29-2022 15:23-0400 Respiratory rate 18 /min Katherine Praisler-Wood COVER REMOVER.SUPERVISOR FR[employer] GRADING Work Phone: [facility] 10-29-2022 15:23-0400 SaO2% (BldA) [Mass fraction] 97 % Katherine Praisler-Wood COVER REMOVER.SUPERVISOR FR[employer] GRADING Work Phone: [facility] 10-29-2022 15:23-0400 Systolic blood pressure 136 mm[Hg] Katherine Praisler-Wood COVER REMOVER.SUPERVISOR FR[employer] GRADING Work Phone: [facility] 10-10-2022 13:20-0400 Body temperature 97 [degF] Luz Elena Med COVER REMOVER.SUPERVISOR FRUIT GRADING Work Phone: [facility] 10-10-2022 13:20-0400 Body weight 83.46 kg Luz Elena Med COVER REMOVER.SUPERVISOR FRUIT GRADING Work Phone: [facility] 10-10-2022 13:20-0400 Diastolic blood pressure 86 mm[Hg] Luz Elena Jovel COVER REMOVER.SUPERVISOR FRUIT GRADING Work Phone: [facility] 10-10-2022 13:20-0400 Heart rate 74 /min Luz Elena [employer]ask COVER REMOVER.SUPERVISOR FRUIT GRADING Work Phone: [facility] 10-10-2022 13:20-0400 Respiratory rate 18 /min Luz Elena Med COVER REMOVER.SUPERVISOR FRUIT GRADING Work Phone: [facility] 10-10-2022 13:20-0400 SaO2% (BldA) [Mass fraction] 99 % Luz Elena [employer] COVER REMOVER.SUPERVISOR FRUIT GRADING Work Phone: [facility] 10-10-2022 13:20-0400 Systolic blood pressure 147 mm[Hg] Luz Elena [employer]ask COVER REMOVER.SUPERVISOR FRUIT GRADING Work Phone: [facility] 09-09-2022 16:55-0400 Diastolic blood pressure 87 mm[Hg] [facility] 09-09-2022 16:55-0400 Heart rate 73 /min [facility] 09-09-2022 16:55-0400 Respiratory rate 15 /min [facility] 09-09-2022 16:55-0400 SaO2% (BldA) [Mass fraction] 98 % [facility] 09-09-2022 16:55-0400 Systolic blood pressure 142 mm[Hg] [facility] 09-09-2022 12:43-0400 Body height 144.78 cm [facility] 09-09-2022 12:43-0400 Body mass index (BMI) [Ratio] 40.4 kg/m2 [facility] 09-09-2022 12:43-0400 Body temperature 97.5 [degF] [facility] 09-09-2022 12:43-0400 Body weight 84.82 kg [facility] 08-24-2022 11:00-0400 Diastolic blood pressure 91 mm[Hg] [facility] 08-24-2022 11:00-0400 Heart rate 72 /min [facility] 08-24-2022 11:00-0400 Respiratory rate 16 /min [facility] 08-24-2022 11:00-0400 SaO2% (BldA) [Mass fraction] 96 % [facility] 08-24-2022 11:00-0400 Systolic blood pressure 151 mm[Hg] [facility] 08-24-2022 10:30-0400 Body height 144.78 cm [facility] 08-24-2022 10:30-0400 Body mass index (BMI) [Ratio] 39.2 kg/m2 [facility] 08-24-2022 10:30-0400 Body temperature 96.7 [degF] [facility] 08-24-2022 10:30-0400 Body weight 82.1 kg [facility] 07-28-2022 01:00-0400 Body height 144.78 cm Brunilda Robinsau [facility] 07-28-2022 01:00-0400 Body mass index (BMI) [Ratio] 39.6 kg/m2 Brunilda Brown [facility] 07-28-2022 01:00-0400 Body surface area Derived from formula 1.83 m2 Brunilda Robinsau [facility] 07-28-2022 01:00-0400 Body temperature 98.2 [degF] Brunilda Robinsau [facility] 07-28-2022 01:00-0400 Body weight 83.01 kg Brunilda Stephanie [facility] 07-28-2022 01:00-0400 Diastolic blood pressure 82 mm[Hg] Brunilda Stephanie [facility] 07-28-2022 01:00-0400 Heart rate 80 /min Brunilda Brown [facility] 07-28-2022 01:00-0400 SaO2% (BldA) [Mass fraction] 97 % Brunilda Brown [facility] 07-28-2022 01:00-0400 Systolic blood pressure 136 mm[Hg] Brunilda Brown [facility] 07-06-2022 14:18-0400 Respiratory rate 16 /min [facility] 07-06-2022 12:18-0400 Body mass index (BMI) [Ratio] 37 kg/m2 [facility] 07-06-2022 12:18-0400 Body temperature 96.3 [degF] [facility] 07-06-2022 12:18-0400 Body weight 77.56 kg [facility] 07-06-2022 12:18-0400 Diastolic blood pressure 90 mm[Hg] [facility] 07-06-2022 12:18-0400 Heart rate 91 /min [facility] 07-06-2022 12:18-0400 SaO2% (BldA) [Mass fraction] 99 % [facility] 07-06-2022 12:18-0400 Systolic blood pressure 154 mm[Hg] [facility] 05-25-2022 19:12-0400 Diastolic blood pressure 84 mm[Hg] [facility] 05-25-2022 19:12-0400 Heart rate 76 /min [facility] 05-25-2022 19:12-0400 Respiratory rate 22 /min [facility] 05-25-2022 19:12-0400 SaO2% (BldA) [Mass fraction] 99 % [facility] 05-25-2022 19:12-0400 Systolic blood pressure 117 mm[Hg] [facility] 05-25-2022 15:54-0400 Body height 145.01 cm [facility] 05-25-2022 15:54-0400 Body mass index (BMI) [Ratio] 40.2 kg/m2 [facility] 05-25-2022 15:54-0400 Body temperature 98.1 [degF] [facility] 05-25-2022 15:54-0400 Body weight 84.7 kg [facility] 05-25-2022 15:38-0400 Body temperature 99.1 [degF] Jose Eduardo Dow MD Work Phone: [facility] 05-25-2022 15:38-0400 Diastolic blood pressure 100 mm[Hg] Jose Eduardo Dow MD Work Phone: [facility] 05-25-2022 15:38-0400 Heart rate 88 /min Jose Eduardo Dow MD Work Phone: [facility] 05-25-2022 15:38-0400 Respiratory rate 14 /min Jose Eduardo Dow MD Work Phone: [facility] 05-25-2022 15:38-0400 SaO2% (BldA) [Mass fraction] 98 % Jose Eduardo Dow MD Work Phone: [facility] 05-25-2022 15:38-0400 Systolic blood pressure 180 mm[Hg] Jose Eduardo Dow MD Work Phone: [facility] 05-07-2022 00:00-0500 Body height 144.78 cm [employer] [facility] 05-07-2022 00:00-0500 Body mass index (BMI) [Ratio] 41.3 kg/m2 [employer] [facility] 05-07-2022 00:00-0500 Body surface area Derived from formula 1.87 m2 [employer] [facility] 05-07-2022 00:00-0500 Body temperature 97 [degF] Connor Kiranley [employer] [facility] 05-07-2022 00:00-0500 Body weight 86.64 kg Connor Moblyng [employer] [facility] 05-07-2022 00:00-0500 Diastolic blood pressure 90 mm[Hg] Connor Moblyng [employer] [facility] 05-07-2022 00:00-0500 Heart rate 85 /min Connor Moblyng [facility] 05-07-2022 00:00-0500 Respiratory rate 18 /min Connor Moblyng [facility] 05-07-2022 00:00-0500 Systolic blood pressure 158 mm[Hg] Connor Kiranley [facility] 01-30-2022 00:00-0500 Body height 144.78 cm Raina Andrews [facility] 01-30-2022 00:00-0500 Body mass index (BMI) [Ratio] 41.1 kg/m2 Raina Andrews [facility] 01-30-2022 00:00-0500 Body surface area Derived from formula 1.86 m2 Raina Andrews [facility] 01-30-2022 00:00-0500 Body weight 86.18 kg Raina Andrews [facility] 01-15-2022 00:00-0500 Body height 144.78 cm Brunilda Brown [facility] 01-15-2022 00:00-0500 Body mass index (BMI) [Ratio] 41.1 kg/m2 Brunilda Brown [facility] 01-15-2022 00:00-0500 Body surface area Derived from formula 1.86 m2 Brunilda Brown [facility] 01-15-2022 00:00-0500 Body temperature 97.6 [degF] Brunilda Brown [facility] 01-15-2022 00:00-0500 Body weight 86.18 kg Brunilda Brown [facility] 01-15-2022 00:00-0500 Diastolic blood pressure 76 mm[Hg] Brunilda Brown [facility] 01-15-2022 00:00-0500 Heart rate 95 /min Brunilda Brown [facility] 01-15-2022 00:00-0500 SaO2% (BldA) [Mass fraction] 98 % Brunilda Brown [facility] 01-15-2022 00:00-0500 Systolic blood pressure 136 mm[Hg] Brunilda Brown [facility] 11-10-2021 01:00-0400 Body height 144.78 cm Raina Andrews [facility] 11-10-2021 01:00-0400 Body surface area Derived from formula 1.91 m2 Raina Andrews [facility] 11-10-2021 01:00-0400 Body temperature 98.1 [degF] Raina Andrews [facility] 11-10-2021 01:00-0400 Body weight 90.26 kg Raina Andrews [facility] 11-10-2021 01:00-0400 Diastolic blood pressure 87 mm[Hg] Raina Andrews [facility] 11-10-2021 01:00-0400 Heart rate 88 /min Raina Andrews [facility] 11-10-2021 01:00-0400 Respiratory rate 18 /min Raina Andrews [facility] 11-10-2021 01:00-0400 SaO2% (BldA) [Mass fraction] 98 % Raina Andrews [facility] 11-10-2021 01:00-0400 Systolic blood pressure 163 mm[Hg] Raina Andrews [employer] [facility] 10-23-2021 01:00-0400 Body height 144.78 cm Sridhar Rossichie [employer] [facility] 10-23-2021 01:00-0400 Body mass index (BMI) [Ratio] 40.9 kg/m2 Sridhar [employer] [facility] 10-23-2021 01:00-0400 Body surface area Derived from formula 1.86 m2 Sridhar Rossichie [employer] [facility] 10-23-2021 01:00-0400 Body weight 85.73 kg Sridhar Rossichie [employer] [facility] 09-02-2021 01:00-0400 Body height 144.78 cm Connor Kiranley [employer] [facility] 09-02-2021 01:00-0400 Body mass index (BMI) [Ratio] 41.3 kg/m2 Connor Moblyng [employer] [facility] 09-02-2021 01:00-0400 Body surface area Derived from formula 1.87 m2 Connor Moblyng [employer] [facility] 09-02-2021 01:00-0400 Body temperature 97.5 [degF] Connor Kiranley [employer] [facility] 09-02-2021 01:00-0400 Body weight 86.64 kg Connor Moblyng [facility] 09-02-2021 01:00-0400 Diastolic blood pressure 106 mm[Hg] Connor Kiranley [employer] [facility] 09-02-2021 01:00-0400 Heart rate 100 /min Connor Moblyng [employer] [facility] 09-02-2021 01:00-0400 Respiratory rate 16 /min Connor Moblyng [facility] 09-02-2021 01:00-0400 SaO2% (BldA) [Mass fraction] 100 % Connor Moblyng [facility] 09-02-2021 01:00-0400 Systolic blood pressure 164 mm[Hg] Connor Moblyng [email or web address] 08-28-2021 01:00-0400 Body height 144.78 cm [employer] [facility] 08-28-2021 01:00-0400 Body mass index (BMI) [Ratio] 40.5 kg/m2 [employer] [facility] 08-28-2021 01:00-0400 Body surface area Derived from formula 1.85 m2 [email or web address] [facility] 08-28-2021 01:00-0400 Body temperature 97.2 [degF] Sridhar [email or web address] [facility] 08-28-2021 01:00-0400 Body weight 84.82 kg [email or web address] [facility] 08-28-2021 01:00-0400 Diastolic blood pressure 72 mm[Hg] [email or web address] [facility] 08-28-2021 01:00-0400 Heart rate 88 /min [employer] [facility] 08-28-2021 01:00-0400 SaO2% (BldA) [Mass fraction] 99 % [employer] [facility] 08-28-2021 01:00-0400 Systolic blood pressure 110 mm[Hg] [employer] [facility] 07-02-2021 01:00-0400 Body height 144.78 cm [employer] [facility] 07-02-2021 01:00-0400 Body mass index (BMI) [Ratio] 42 kg/m2 [employer] [facility] 07-02-2021 01:00-0400 Body surface area Derived from formula 1.88 m2 [employer] [facility] 07-02-2021 01:00-0400 Body temperature 98.3 [degF] [employer] [facility] 07-02-2021 01:00-0400 Body weight 88 kg Sridhar Rossichie [email or web address] [facility] 07-02-2021 01:00-0400 Diastolic blood pressure 80 mm[Hg] Sridhar Rossichie [email or web address] [facility] 07-02-2021 01:00-0400 Heart rate 109 /min Sridhar Childress [facility] 07-02-2021 01:00-0400 SaO2% (BldA) [Mass fraction] 98 % Sridhar Childress [facility] 07-02-2021 01:00-0400 Systolic blood pressure 128 mm[Hg] Sridhar Rossichie [facility] 06-19-2021 01:00-0400 Body height 144.78 cm Brunilda Brown [facility] 06-19-2021 01:00-0400 Body mass index (BMI) [Ratio] 42.2 kg/m2 Brunilda Brown [facility] 06-19-2021 01:00-0400 Body surface area Derived from formula 1.89 m2 Brunilda Brown [facility] 06-19-2021 01:00-0400 Body temperature 97.5 [degF] Brunilda Brown [facility] 06-19-2021 01:00-0400 Body weight 88.45 kg Brunilda Brown [facility] 06-19-2021 01:00-0400 Diastolic blood pressure 76 mm[Hg] Brunilda Brown [facility] 06-19-2021 01:00-0400 Heart rate 87 /min Brunilda Brown [facility] 06-19-2021 01:00-0400 SaO2% (BldA) [Mass fraction] 97 % Brunilda Brown [facility] 06-19-2021 01:00-0400 Systolic blood pressure 120 mm[Hg] Brunilda Brown [facility] 08-03-2020 18:32-0400 Body temperature 98.2 [degF] Jumana Kayfan DO Work Phone: [facility] 08-03-2020 18:32-0400 Diastolic blood pressure 84 mm[Hg] Jumana Kayfan DO Work Phone: [facility] 08-03-2020 18:32-0400 Heart rate 103 /min Jumana Kayfan DO Work Phone: [facility] 08-03-2020 18:32-0400 SaO2% (BldA) [Mass fraction] 97 % Jumana Kayfan DO Work Phone: [facility] 08-03-2020 18:32-0400 Systolic blood pressure 138 mm[Hg] Jumana Kayfan DO Work Phone: [facility] 08-03-2020 18:31-0400 Body height 144.8 cm Jumana Kayfan DO Work Phone: [facility] 08-03-2020 18:31-0400 Body mass index (BMI) [Ratio] 43.5 kg/m2 Jumana Zamora DO Work Phone: [facility] 08-03-2020 18:31-0400 Body weight 91.17 kg Jumana Zamora DO Work Phone: [facility] 08-03-2020 18:31-0400 Respiratory rate 18 /min Jumana Zamora DO Work Phone: [facility] 04-29-2019 12:57-0500 Body Temperature 99.1 [degF] [facility] 04-29-2019 12:57-0500 BP Diastolic 81 mm[Hg] [facility] 04-29-2019 12:57-0500 BP Systolic 127 mm[Hg] [facility] 04-29-2019 12:57-0500 Pulse (Heart Rate) 96 /min [facility] 04-29-2019 12:57-0500 Pulse Oximetry 95 % [facility] 04-29-2019 11:21-0500 BMI (Body Mass Index) 43.28 kg/m2 [facility] 04-29-2019 11:21-0500 Body weight 90.72 kg [facility] 04-29-2019 11:21-0500 Height 144.8 cm [facility] 04-29-2019 11:21-0500 Respiratory Rate 16 /min [facility] 12-06-2018 09:28-0400 Body Temperature 97.3 [degF] Generic [facility] 12-06-2018 09:28-0400 BP Diastolic 70 mm[Hg] Generic [facility] 12-06-2018 09:28-0400 BP Systolic 101 mm[Hg] Generic [facility] 12-06-2018 09:28-0400 Pulse (Heart Rate) 77 /min Generic [facility] 12-06-2018 09:28-0400 Pulse Oximetry 97 % Generic [facility] 12-06-2018 09:28-0400 Respiratory Rate 16 /min Generic [facility] 12-06-2018 02:37-0400 BMI (Body Mass Index) 45.18 kg/m2 Generic [facility] 12-06-2018 02:37-0400 Body weight 94.7 kg Generic [facility] 12-06-2018 02:37-0400 Height 144.8 cm Generic Gu[facility] Encounters Encounter Date Encounter Type Care Provider Facility Start: 08-29-2024 End: 08-29-2024 Emergency department patient visit Desire Lanier SPEECH COACH-C Work Phone: -Emergency Department Work Phone: Start: 08-17-2024 ambulatory Desire Lanier SPEECH COACH Facil ity:[facility] Start: 08-04-2024 ambulatory EMILY PLUNKETT Facil ity:[facility] Start: 08-04-2024 End: 08-04-2024 Subsequent hospital visit by physician Screen Mammo [facility] Comment on above: Encounter for screen ing mammogram for malignant neoplasm of breast [Z12.31] Start: 08-02-2024 End: 08-03-2024 Follow-up encounter Desire Lanier APRN.SUPERVISOR [employer]ADING Work Phone: [facility] Comment on above: Results Start: 08-02-2024 ambulatory DESIRE LANIER Facili ty:[facility] Start: 08-02-2024 End: 08-02-2024 Subsequent hospital visit by physician Stress Lab [facility] Work Phone: Cardiology Lab Start: 08-01-2024 End: 08-01-2024 Telephone encounter Quyen Gardner RN Cardiology Lab Comment on above: Reminder Call Start: 07-28-2024 End: 07-28-2024 ambulatory DESIRE LANIER Facility:[facility] Start: 07-13-2024 End: 07-14-2024 Refill Emily Plunkett MD Work Phone: OB/Gynecology Comment on above: Refill Request Type 2 diabetes fred itus without complication, without long-term current use of insulin (HCC) (Primary Dx); Hyperlipidemia with target LDL less than 130; Iron deficiency anemia, unspecified iron deficiency anemia type; Hypertension, essential; Recurrent major depressive disorder, remission status unspecified; Moderate persistent asthma, unspecified whether complicated (HCC); Chest pain, unspecified type; Encounter for screening for cardiovascular disorders; Acute cough; SOB (shortness of breath) on exertion; Near syncope; Edema of right lower extremity; Dizziness and giddiness; Palpitations Start: 06-01-2024 End: 06-02-2024 Patient Outreach Desire Lanier APRN.CNP Work Phone: [facility] Comment on above: Transition Of Care ( Discharge [facility] 05/31/2024. Pt was admitted 05/30-05/31/2024) Start: 05-31-2024 End: 05-31-2024 Evaluation and management of inpatient Dr. Linwood Vega MD -Medical Surgical 3 Work Phone: Start: 05-30-2024 End: 05-30-2024 ambulatory Fiordaliza Lomax Facility[place] Start: 05-30-2024 End: 05-30-2024 Non-patient / Non-visit Dr. Fiordaliza Lomax MD -[facility] Work Phone: Start: 05-30-2024 End: 05-31-2024 ambulatory Desire Lanier NP Facility:[facility] Start: 05-30-2024 End: 05-31-2024 Evaluation and management of inpatient Dr. Linwood Vega MD -Medical Surgical 3 Work Phone: Start: 05-30-2024 Evaluation and manag ement of inpatient Dr. Linwood Vega MD -Medical Surgical 3 Work Phone: Start: 05-15-2024 End: 05-15-2024 ambulatory Desire Lanier APRN.CNP Work Phone: [facility] Start: 05-15-2024 End: 05-15-2024 Follow-up encounter Desire Lanier APRN.CNP Work Phone: [facility] Comment on above: ED Follow-up ([facility] 05/12/2024) Start: 05-12-2024 End: 05-12-2024 Emergency department patient visit Desireliana Lanier SPEECH COACH-C Work Phone: -Emergency Department Work Phone: Start: 05-05-2024 End: 05-05-2024 ambulatory Desire Lanier COVER REMOVER.SUPERVISOR [employer] GRADING Work Phone: [facility] Start: 05-05-2024 End: 05-05-2024 Follow-up encounter Desire Lainer COVER REMOVER.SUPERVISOR [employer] GRADING Work Phone: [facility] Comment on above: ED Follow-up ([facility] 04/28/2024) Start: 05-04-2024 End: 05-04-2024 ambulatory Susy Bubba [facility] Comment on above: ED OUTREACH (ED OUTR EACH04/28/2024/MALIA ) Start: 04-28-2024 End: 04-28-2024 Emergency department patient visit Dr. Radha Barreto DO -Emergency Department Work Phone: Start: 04-27-2024 End: 04-27-2024 ambulatory DESIREKAIRA SOLISDEN Facility:[facility] Start: 04-27-2024 End: 04-27-2024 Patient encounter procedure Enrique COVER REMOVER.SUPERVISOR [employer]ADING Work Phone: [facility] Comment on above: URI, acute (Primary Dx) Start: 04-10-2024 End: 04-10-2024 Refill Desire A Janet COVER REMOVER.SUPERVISOR [employer]ADING Work Phone: [facility] Comment on above: Refill Request Start: 03-22-2024 End: 03-22-2024 Subsequent hospital visit by physician Xr [facility] Work Phone: Radiology Comment on above: Contusion of right h ip, initial encounter [S70.01XA] Start: 03-22-2024 End: 03-22-2024 ambulatory DESIRE A QUEDEN Facility:[facility] Start: 03-22-2024 End: 03-22-2024 Office outpatient visit 25 minutes Sean An PA-C Work Phone: [facility] Comment on above: Contusion of right h ip, initial encounter (Primary Dx); Lumbar back pain; Cellulitis of face; Degeneration of intervertebral disc of lumbar region, unspecified whether pain present Start: 01-22-2024 End: 01-24-2024 Refill Desire Lanier COVER REMOVER.SUPERVISOR [employer]ADING Work Phone: [facility] Comment on above: Refill Request Start: 01-14-2024 End: 01-14-2024 Telephone encounter Nida Keita DO Work Phone: Hematology/Oncology Comment on above: Appointment Start: 01-12-2024 End: 01-12-2024 ambulatory Treatment Rm 15 Remy [facility] Work Phone: Hematology/Oncology Comment on above: Poor iron absorption (Primary Dx); Iron deficiency anemia due to chronic blood loss Start: 12-29-2023 End: 12-29-2023 Telephone encounter Emily Plunkett MD Work Phone: Internal Medicine [facility] Comment on above: Hematology Start: 12-27-2023 End: 12-27-2023 ambulatory Ranjeet Ellington 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 truck 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 [place] Comment on above: Blood management Start: 12-24-2023 End: 02-21-2024 Telephone encounter Emily Plunkett MD Work Phone: OB/Gynecology Comment on above: Results Start: 12-23-2023 End: 12-23-2023 ambulatory EMILY PLUNKETT Facility:[facility] Start: 12-23-2023 End: 12-23-2023 Patient encounter procedure Emily Plunkett MD Work Phone: OB/Gynecology Comment on above: Iron deficiency anem ia due to chronic blood loss (Primary Dx); Encounter for screening mammogram for malignant neoplasm of breast Start: 12-16-2023 End: 12-16-2023 Telephone encounter Desire Lanier APRN.SUPERVISOR FRUIT GRADING Work Phone: [facility] Comment on above: Patient Question (Wo uld like another form filled out for electric services) Start: 12-15-2023 End: 12-15-2023 Telephone encounter Desire Lanier APRN.SUPERVISOR FRUIT GRADING Work Phone: [facility] Comment on above: Patient Update Start: 12-11-2023 End: 12-11-2023 ambulatory SELF Facility:[facility] Start: 12-11-2023 End: 12-11-2023 Patient encounter procedure Pasquale Hollins PA Work Phone: [facility] Comment on above: URI, acute (Primary Dx) Start: 12-06-2023 End: 12-10-2023 Patient Outreach Delilah Mims LPN [facility] Comment on above: Transition Of Care ( Pt d/c from [facility] on 12/03/2023. Pt was admitted on 12/02/2023 for Fibroid uterine, Chronic blood loss, anemia, Abn vaginal bleeding.) Post Op Pain Start: 12-03-2023 ambulatory Taya Dai Facility:[facility] Start: 12-03-2023 End: 12-03-2023 ambulatory Sulema Gan [facility] Start: 12-02-2023 End: 12-03-2023 ambulatory Renetta Reyes [facility] Comment on above: ED Outreach ([place] [facility] 12/01/23) Start: 12-02-2023 End: 12-02-2023 Telephone encounter Emily Plunkett MD Work Phone: OB/Gynecology Comment on above: Results Start: 12-01-2023 End: 12-01-2023 Emergency department patient visit Radha Barreto Facility:[facility] Start: 11-26-2023 End: 11-29-2023 Telephone encounter Desire Lanier APRN.SUPERVISOR FRUIT GRADING Work Phone: [facility] Comment on above: Lab Orders Start: 11-24-2023 End: 11-24-2023 ambulatory EMILY PLUNKETT Facility:[facility] Start: 11-24-2023 End: 11-24-2023 Patient encounter procedure Emily Plunkett MD Work Phone: OB/Gynecology Comment on above: Menorrhagia with reg ular cycle (Primary Dx); Iron deficiency anemia due to chronic blood loss; Submucous uterine fibroid; Thickened endometrium Start: 11-22-2023 End: 11-22-2023 Telephone encounter Desire Lanier APRN.CNP Work Phone: [facility] Comment on above: Forms Start: 11-17-2023 End: 11-17-2023 Patient encounter procedure Suze Pleitez APRN.CNM Work Phone: OB/Gynecology Comment on above: Abnormal uterine ble eding (AUB) (Primary Dx); Endometrial thickening on ultrasound; Screening for cervical cancer; Screening for human papillomavirus; Iron deficiency anemia due to chronic blood loss Start: 11-17-2023 End: 11-17-2023 ambulatory SUZE PLEITEZ Facility:[facility] Start: 11-12-2023 End: 11-15-2023 ambulatory Suze Pleitez APRN.CNM Work Phone: OB/Gynecology Comment on above: Question Start: 11-02-2023 End: 11-02-2023 Telephone encounter Suze Pleitez APRN.CNM Work Phone: OB/Gynecology Comment on above: Results Start: 10-28-2023 End: 10-28-2023 ambulatory SUZE PLEITEZ OB/Gynecology Start: 10-28-2023 End: 10-28-2023 Patient encounter procedure [employer] OB/Gynecology Start: 10-26-2023 End: 10-26-2023 ambulatory DESIRE LANIER Facility:[facility] Start: 10-26-2023 End: 10-26-2023 Patient encounter procedure Pasquale SHAHID Work Phone: [facility] Comment on above: URI, acute (Primary Dx) Start: 10-25-2023 End: 11-15-2023 Telephone encounter Suze Pleitez APRN.CNM Work Phone: OB/Gynecology Comment on above: Results Start: 10-21-2023 End: 10-21-2023 Telephone encounter Desire Lanier APRN.CNP Work Phone: [facility] Comment on above: Patient Question Start: 10-20-2023 End: 10-20-2023 ambulatory SUZE PLEITEZ Facility:[facility] Start: 10-20-2023 End: 10-20-2023 Patient encounter procedure Suze Pleitez CNM Work Phone: OB/Gynecology Comment on above: Abnormal uterine ble eding (AUB) (Primary Dx); Iron deficiency anemia due to chronic blood loss Start: 10-04-2023 End: 10-04-2023 Emergency department patient visit Desire Lanier NP Facility:[facility] Start: 10-04-2023 End: 10-04-2023 ambulatory [facility] Facility:[facility] Start: 10-04-2023 End: 10-04-2023 Patient encounter procedure Andrea Brown APRN.SUPERVISOR FRUIT GRADING Work Phone: [facility] Comment on above: Procedure not viola d out (Primary Dx) Start: 09-24-2023 End: 09-24-2023 ambulatory [facility] Facility:[facility] Start: 09-24-2023 End: 09-24-2023 Patient encounter procedure Jose Eduardo Dow MD Work Phone: [facility] Comment on above: Vomiting and diarrhe a (Primary Dx); Ulceration, skin (HCC); Iron deficiency anemia, unspecified iron deficiency anemia type Start: 09-07-2023 End: 09-07-2023 Emergency department patient visit Amari Ashley Facility:[facility] Start: 09-03-2023 Telephone encounter Desire Lanier COVER REMOVER.SUPERVISOR FRUIT GRADING Work Phone: [facility] Comment on above: Results Start: 08-31-2023 End: 08-31-2023 Patient encounter procedure Pasquale SHAHID Work Phone: [facility] Comment on above: Vomiting and diarrhe a (Primary Dx) Start: 08-31-2023 End: 08-31-2023 ambulatory [facility] Facility:[facility] Start: 08-25-2023 Telephone encounter Alannah abebe PSYD Work Phone: [facility] Comment on above: Appointment Results; Orders Start: 08-24-2023 End: 08-24-2023 ambulatory [facility] Facility:[facility] Start: 08-24-2023 End: 08-24-2023 Patient encounter procedure Desire Latonia Lanier COVER REMOVER.SUPERVISOR FRUIT GRADING Work Phone: [facility] Comment on above: Type 2 diabetes fred itus without complication, without long- term current use of insulin (HCC) (Primary Dx); Hyperlipidemia with target LDL less than 130; PTSD (post-traumatic stress disorder); Recurrent major depressive disorder, remission status unspecified ([facility]); Bipolar affective disorder, remission status unspecified ([facility]); Right leg pain; Muscle spasm of right leg; Hypertension, essential; History of seizures; Convulsions, unspecified convulsion type ([facility]); Moderate persistent asthma, unspecified whether complicated; Recurrent headache Start: 08-24-2023 End: 08-24-2023 ambulatory [facility] Facility:[facility] Start: 07-03-2023 End: 07-03-2023 Emergency department patient visit [facility] Work Phone: Start: 05-20-2023 End: 05-20-2023 Subsequent hospital visit by physician [facility] [employer] Work Phone: Radiology Comment on above: Repetitive stress in jury [X50.3XXA] Start: 05-20-2023 End: 05-20-2023 Patient encounter procedure Brunilda Alfonso Work Phone: Podiatry Comment on above: Repetitive stress in jury (Primary Dx) Start: 05-03-2023 End: 05-03-2023 Emergency department patient visit [facility] Work Phone: [facility] Work Phone: Start: 04-22-2023 End: 04-22-2023 Subsequent hospital visit by physician [facility] [employer] Work Phone: Radiology Comment on above: Posterior tibial ten don dysfunction [M76.829] Start: 04-22-2023 End: 04-22-2023 Patient encounter procedure Brunilda Herculesender Work Phone: Podiatry Comment on above: Posterior tibial ten don dysfunction (Primary Dx); Pes planus of both feet; Controlled type 2 diabetes mellitus without complication, 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 (HCC) Start: 04-07-2023 End: 04-07-2023 [facility] Start: 04-07-2023 End: 04-07-2023 Patient encounter procedure Jose Eduardo Dow MD Work Phone: [facility] Comment on above: Feeling light headed (Primary Dx); Elevated blood sugar Start: 02-10-2023 Non-patient / Non-visit [facility] Work Phone: [facility] Start: 02-10-2023 End: 02-10-2023 Emergency department [facility] Start: 02-05-2023 End: 02-05-2023 Patient encounter procedure Suze Arguelles COVER REMOVER.SUPERVISOR FRUIT GRADING Work Phone: [facility] Comment on above: Pain and swelling of right lower leg (Primary Dx) Start: 01-04-2023 End: 01-04-2023 Emergency department [facility] Start: 12-21-2022 End: 12-21-2022 Emergency department [facility] Start: 12-12-2022 End: 12-12-2022 Patient encounter procedure Katherine Hubbard APRN.SUPERVISOR FRUIT GRADING Work Phone: [facility] Comment on above: Acute foot pain, rig ht (Primary Dx); Vertigo; Muscle spasm of right leg Start: 11-06-2022 End: 11-06-2022 Emergency department [facility] Start: 11-05-2022 End: 11-05-2022 Patient encounter procedure [facility] Work Phone: [facility] Work Phone: Start: 10-31-2022 Telephone encounter Katherine Mominkingston Swain COVER REMOVER.SUPERVISOR FRUIT GRADING Work Phone: [facility] Comment on above: Results Start: 10-30-2022 Telephone encounter Katherine Denton yossi-Jacinto COVER REMOVER.SUPERVISOR FRUIT GRADING Work Phone: Urgent Care Comment on above: Results Start: 10-29-2022 End: 10-29-2022 Patient encounter procedure Katherine Haydee COVER REMOVER.SUPERVISOR FRUIT GRADING Work Phone: [facility] Comment on above: Urinary tract infect ion with hematuria, site unspecified (Primary Dx); Flank pain; Headache, unspecified headache type Start: 10-10-2022 End: 10-10-2022 Patient encounter procedure Luz Elena Jovel COVER REMOVER.SUPERVISOR FRUIT GRADING Work Phone: [facility] Comment on above: Acute right-sided lo w back pain with right-sided sciatica (Primary Dx) Start: 09-09-2022 End: 09-09-2022 Emergency department patient visit [facility] Work Phone: Start: 08-24-2022 End: 08-24-2022 Emergency department patient visit [facility] Start: 07-29-2022 ambulatory BRUNILDA Quan [facility] Start: 07-28-2022 End: 07-29-2022 ambulatory BRUNILDA BROWN Facility:[facility] Start: 07-28-2022 Brunilda Brown [place] - [facility] - [facility] Start: 07-06-2022 End: 07-06-2022 Emergency department patient visit [facility] Start: 05-25-2022 End: 05-25-2022 Emergency department patient visit [facility] Start: 05-25-2022 End: 05-25-2022 Patient encounter procedure Jose Eduardo Dow MD Work Phone: [facility] Comment on above: Chest pain, unspecif ied type (Primary Dx) Start: 05-07-2022 End: 05-08-2022 ambulatory MICHELLE HANSEN Facility:[facility] Start: 05-07-2022 Connor Khan saadia [facility] - HC_UCC_[place] Start: 03-27-2022 End: 03-28-2022 ambulatory BRUNILDA BROWN Facility:[facility] Start: 03-27-2022 Brunilda Brown [facility] - [facility] Start: 03-19-2022 ambulatory BRUNILDA BROWN Facili ty:[facility] Start: 01-30-2022 Raina Andrews [place] [facility] Start: 01-15-2022 Office outpatient vi sit 25 minutes Brunilda Brown [facility] - [facility] Start: 01-15-2022 Brunilda Brown [place] [facility] - [facility] Start: 01-05-2022 Olive Simpson [facility] - HC_OP[place]THA_[place] Start: 11-10-2021 Raina Andrews [facility] - HC_UCC_[place] Start: 10-23-2021 Sridhar Childress [facility] - HC_OBGYN[place] Start: 09-02-2021 Opscpy extnd rta kathy wing & scl deprsn i&r uni/bi Connor Juan F [facility] - HC_UCC_[place] Start: 08-28-2021 Opscpy extnd rta kathy wing & scl deprsn i&r uni/bi Laura Faustino [facility] - HC_PAD_[place] Start: 08-13-2021 Opscpy extnd rta kathy wing & scl deprsn i&r uni/bi Connor Juan F [facility] - HC_UCC_[place] Start: 08-11-2021 End: 08-15-2021 ambulatory PROVIDER NOT IN SYSTEM [facility] Start: 07-10-2021 Opscpy extnd rta kathy wing & scl deprsn i&r uni/bi Nya Peters [facility] - HC_THERAPY_[place] Start: 07-03-2021 Opscpy extnd rta kathy wing & scl deprsn i&r uni/bi Nya Peters [facility] - HC_THERAPY_[place] Start: 07-02-2021 Opscpy extnd rta kathy wing & scl deprsn i&r uni/bi Sridhar Childress [facility] - HC_OBGYN_[place] Start: 06-26-2021 Opscpy extnd rta dra franks & scl deprsn i&r uni/bi Nya Fran [facility] - HC_THERAPY_[place] Start: 06-20-2021 Transcribe Orders Brunildamary grace moulton Stephanie DO Work Phone: [facility] Comment on above: Iron deficiency (Chloe susy Dx) Start: 06-19-2021 Opscpy extnd rta dra franks & scl deprsn i&r uni/bi Brunilda Brown [facility] - HC_INTMED_[place] Start: 06-12-2021 Opscpy extnd rta dra franks & scl deprsn i&r uni/bi Reynaldo Alva [facility] - HC_THERAPY_[place] Start: 02-11-2021 End: 02-12-2021 [facility] [place] [place] Start: 01-31-2021 Transcribe Orders Jackson Page CNP Work Phone: [facility] Physical Therapy Comment on above: Displacement of lumb ar intervertebral disc without myelopathy (Primary Dx) Start: 01-21-2021 End: 01-21-2021 Emergency department patient visit BRUNILDA GAN [facility] Start: 11-30-2020 End: 11-30-2020 Emergency department patient visit BRUNILDA GAN [facility] Start: 10-13-2020 End: 10-14-2020 Emergency department patient visit BRUNILDA GAN [facility] Start: 08-03-2020 End: 08-03-2020 Emergency department patient visit Jumana Zamora DO Work Phone: [facility] Emergency Department Start: 04-29-2019 End: 04-29-2019 Emergency department patient visit Fabricio Aviles Work Phone: [facility] Emergency Department Comment on above: Influenza (Primary D x); Nausea and vomiting, intractability of vomiting not specified, unspecified vomiting type Start: 02-25-2019 Patient encounter procedure PROVIDER NOT IN SYSTEM [facility] Start: 02-02-2019 End: 02-02-2019 Patient encounter procedure FLORI BURCH [facility] Start: 12-06-2018 End: 12-06-2018 Patient encounter procedure FABRICIOCORNELIUS MALDONADO THI [facility] Start: 12-06-2018 End: 12-06-2018 Emergency department patient visit Generic [employer] Tish Work Phone: [facility] Medical Observation Procedures Date Procedure Procedure Detail Performing Clinician Start: 08-29-2024 Urnls dip stick/tabl et reagent auto microscopy Desire Queden SPEECH COACH-C Work Phone: Start: 08-29-2024 Estimated creatinine clearance Desire Queden SPEECH COACH-C Work Phone: Start: 08-29-2024 CT of abdomen and pe lvis without contrast Desire Queden SPEECH COACH-C Work Phone: Start: 08-02-2024 Myocardial spect mul tiple studies Desire Solisden COVER REMOVER.SUPERVISOR FRUIT GRADING Work Phone: Start: 07-13-2024 COVID & INFLUENZA A/ B & RSV PCR, ROUTINE Desire A Blasden COVER REMOVER.SUPERVISOR FRUIT GRADING Work Phone: Start: 05-31-2024 Extracorporeal shock wave lithotripsy Desire Queden SPEECH COACH-C Work Phone: Start: 05-31-2024 Estimated creatinine clearance Desire Queden SPEECH COACH-C Work Phone: Start: 05-30-2024 CT of abdomen and pe lvis without contrast Desire Queden SPEECH COACH-C Work Phone: Start: 05-30-2024 Urnls dip stick/tabl et reagent auto microscopy Desire Lanier SPEECH COACH-C Work Phone: Start: 05-30-2024 Urine culture Desire garrett SPEECH COACH-C Work Phone: Start: 05-12-2024 Estimated creatinine clearance Desire Lanier SPEECH COACH-C Work Phone: Start: 05-12-2024 Urine culture Desire garrett SPEECH COACH-C Work Phone: Start: 05-12-2024 Plain chest X-ray Sarah Lanier SPEECH COACH-C Work Phone: Start: 05-12-2024 Urnls dip stick/tabl et reagent auto microscopy Desire Lanier SPEECH COACH-C Work Phone: Start: 05-12-2024 Computed tomography of abdomen and pelvis with intravenous contrast Desire Lanier SPEECH COACH-C Work Phone: Start: 04-28-2024 X-ray of chest, PA a nd lateral views Desire Lanier SPEECH COACH-C Work Phone: Start: 03-22-2024 Radex hip unilateral with pelvis 2-3 views Sean Clutter PA-C Work Phone: Start: 11-17-2023 UA DIP,URINE HCG (POC) Suze Pleitez APRN.CNYee Work Phone: Start: 10-28-2023 Us pelvic nonobstetr ic real-time image complete Suze Pleitez APRN.CNM Work Phone: Start: 07-03-2023 Plain x-ray of hand Start: 07-03-2023 X-ray of both feet Start: 05-20-2023 Radex ankle complete minimum 3 views Brunilda Alfonso Work Phone: Start: 05-03-2023 SARS-CoV-2, Influenz a & RSV (PCR) [facility] Work Phone: Start: 05-03-2023 Plain chest X-ray [facility] Work Phone: Start: 01-04-2023 SARS-CoV-2 & FLU Ant igen (Rapid) [facility] Work Phone: Start: 01-04-2023 Viral antigen assay [facility] Work Phone: Start: 01-04-2023 Plain chest X-ray [facility] Work Phone: Start: 12-21-2022 Radiography of ankle [facility] Work Phone: Start: 11-06-2022 Plain chest X-ray [facility] Work Phone: Start: 10-29-2022 COVID & INFLUENZA A/ B & RSV NAAT, ROUTINE Katherine Hubbard COVER REMOVER.[facility] Work Phone: Start: 10-29-2022 Iadna respiratry pro be & rev trnscr 3-5 targets Katherine Hubbard COVER REMOVER.SUPERVISOR FRUIT GRADING Work Phone: Start: 10-29-2022 Sars-cov-2 detection by dna/rna Katherine Hubbard COVER REMOVER.SUPERVISOR FRUIT GRADING Work Phone: Start: 10-29-2022 Urnls dip stick/tabl et rgnt auto w/o microscopy Katherine Hubbard COVER REMOVER.SUPERVISOR [employer] GRADING Work Phone: Start: 09-09-2022 Plain chest X-ray Start: 07-06-2022 CT of head without contrast Start: 05-25-2022 Plain chest X-ray Start: 01-16-2022 Screening for malign ant neoplasm of colon Brunilda Stephanie Start: 01-15-2022 End: 01-15-2022 Screening mammography Brunilda Stephanie Start: 09-23-2021 Hysteroscopy endomet rial ablation Sridhar Velasquez Start: 06-19-2021 End: 06-19-2021 Gynecologic examination Brunilda Stephanie Start: 06-19-2021 End: 06-19-2021 Screening for malignant neoplasm of colon Brunilda Brown Start: 08-03-2020 Radiologic exam ches t single view Dawood Davalos SUPERVISOR FRUIT GRADING Work Phone: Start: 08-03-2020 Ecg routine ecg w/le ast 12 lds w/i&r Dawood Davalos SUPERVISOR FRUIT GRADING Work Phone: Start: 08-03-2020 Urnls dip stick/tabl et reagent auto microscopy Dawood Davalos SUPERVISOR FRUIT GRADING Work Phone: Start: 08-03-2020 End: 08-03-2020 Hepatic function panel Dawood Davalos CNP Work Phone: Start: 08-03-2020 LIGHT GREEN TOP Dawood Davalos SUPERVISOR FRUIT GRADING Work Phone: Start: 08-03-2020 RAINBOW DRAW Dawood Davalos CN P Work Phone: Start: 08-03-2020 End: 08-03-2020 Blood count complete auto&auto difrntl wbc Dawood Davalos SUPERVISOR FRUIT GRADING Work Phone: Start: 09-11-2019 Mammography Jumana Sophia fan DO Work Phone: Start: 04-29-2019 Standard chest X-ray Na art Aviles Work Phone: Start: 04-29-2019 LIGHT BLUE TOP Fabricio Aviles Work Phone: Start: 04-29-2019 LIGHT GREEN TOP Fabricio Crisostomoters Work Phone: Start: 04-29-2019 End: 04-29-2019 RAINBOW DRAW Fabricio Aviles Work Phone: Start: 04-29-2019 Basic metabolic 2000 panel - Serum or Plasma Fabricio Leonidas [facility] Work Phone: Start: 04-29-2019 Choriogonadotropin.b eta [...] Fabricio Aviles Work Phone: Start: 04-29-2019 Urinalysis Fabriciocornelius Malik torres Traci Work Phone: Start: 04-29-2019 URINE CONTAINER Fabricio Aviles Work Phone: Start: 04-29-2019 URINE CONTRERAS CONTAINER Margret Av[facility] Work Phone: Start: 12-06-2018 Dup-scan xtr veins c omplete bilateral study Anisha Harpn Isadora Work Phone: Start: 12-06-2018 Glucose [Mass/volume ] in Blood Radha Abdulrow Work Phone: Start: 12-06-2018 Mra neck w/o &w/cont rast material Anisha Morenoton Work Phone: Start: 12-06-2018 End: 12-06-2018 Lipid 1996 panel - Serum or Plasma Anisha Morenoton Work Phone: Start: 12-06-2018 Glucose [Mass/volume ] in Blood Radha Alanis Wilkins Work Phone: Start: 09-22-2018 Lipid 1996 panel - S ricki or Plasma Katherine Hubbard APRN.CNP Work Phone: Plan of Treatment Date Care Activity Detail Author Start: 11-16-2028 Screening for malignant neoplasm of cervix Cervical Cancer Screening [facility] Start: 10-15-2025 DIABETES SCREEN DIABETES SCREEN [facility] Start: 10-15-2025 Diabetes Screening Diabetes Screening [facility] Start: 07-28-2025 Hepatitis B surface antibody level LDL Cholesterol [facility] Start: 07-13-2025 Annual PCP Team Chronic Disease Visit Annual PCP Team Chronic Disease Visit [facility] Start: 07-13-2025 BP Controlled (<130/80) BP Controlled (<130/80) [facility] Start: 01-28-2025 Hemoglobin A1c [facility] Start: 12-22-2024 Hepatitis B surface antibody level LDL Cholesterol [facility] Start: 10-13-2024 End: 10-13-2024 Patient encounter procedure 10/13/2024 1:00 PM EDT Office Visit [facility] [address] [place] [address] Desire Lanier, COVER REMOVER.[facility] [address] [place] [address] [facility] Comment on above: [facility] Start: 08-29-2024 [facility] Start: 08-29-2024 [facility] Start: 08-29-2024 Bacteria identified in Urine by Culture Urine Culture [facility] Start: 08-23-2024 Annual PCP Team Chronic Disease Visit Annual PCP Team Chronic Disease Visit [facility] Start: 08-23-2024 Hepatitis B surface antibody level LDL Cholesterol [facility] Start: 08-04-2024 End: 08-04-2024 Patient encounter procedure 08/04/2024 2:30 PM EDT Appointment Mammogram [address] [place] [address] Mammogram Start: 08-02-2024 Subsequent hospital visit by physician 08/02/2024 1:00 PM EDT Hospital Encounter Cardiology Lab [address] [place] [address] Encounter for screening for cardiovascular disorders [Z13.6] Cardiology Lab Comment on above: Encounter for screening for cardiovascul ar disorders [Z13.6] Start: 08-02-2024 End: 08-02-2024 Patient encounter procedure Molecular Im aging Comment on above: Epic Order PT is Cleared Epic O rder Start: 07-13-2024 End: 10-12-2024 CBC W Auto Differential panel - Blood COMPLETE BLOOD COUNT AND DIFFERENTIAL Lab Routine Iron deficiency anemia, unspecified iron deficiency anemia type Hypertension, essential Expected: 07/13/2024, Expires: 10/12/2024 [facility] Comment on above: Expected: 07/13/2024, Expires: Start: 07-13-2024 End: 10-12-2024 Comprehensive metabolic 2000 panel - Serum or Plasma COMPREHENSIVE METABOLIC PANEL Lab Routine Hypertension, essential Expected: 07/13/2024, Expires: 10/12/2024 [facility] Comment on above: Expected: 07/13/2024, Expires: Start: 07-13-2024 End: 10-12-2024 Hemoglobin A1c in Blood HEMOGLOBIN A1C Lab Routine Type 2 diabetes mellitus without complication, without long-term current use of insulin (HCC) Expected: 07/13/2024, Expires: 10/12/2024 [facility] Comment on above: Expected: 07/13/2024, Expires: Start: 07-13-2024 End: 10-12-2024 Lipid 1996 panel - Serum or Plasma LIPID PANEL, FASTING Lab Routine Hyperlipidemia with target LDL less than 130 Expected: 07/13/2024, Expires: 10/12/2024 [facility] Work Phone: Comment on above: Expected: 07/13/2024, Expires: Start: 07-13-2024 End: 01-09-2025 TSH W/REFLEX FT4 TSH W/REFLEX FT4 Lab Routine Chest pain, unspecified type Expected: 07/13/2024, Expires: 01/09/2025 [facility] Comment on above: Expected: 07/13/2024, Expires: Start: 05-31-2024 End: 05-31-2024 Patient discharge [facility] Start: 05-31-2024 Admission procedure [facility] Start: 05-30-2024 Measuring intake and output [facility] Start: 05-30-2024 Deep breathing and coughing exercises [facility] Start: 05-30-2024 Assessment of risk of venous thromboembolism [facility] Start: 05-30-2024 Documentation procedure [facility] Start: 05-30-2024 Provision of activity privileges [facility] Start: 05-30-2024 Taking patient vital signs [facility] Start: 05-30-2024 Vital signs measurements [facility] Start: 05-30-2024 End: 05-30-2024 [facility] Start: 05-30-2024 Admission procedure [facility] Start: 05-30-2024 Hospital admission, emergency, from emergency room, medical nature [facility] Start: 05-30-2024 [facility] Start: 05-30-2024 Anes lithotrp xtrcorp shock wave w/o water bath ANESTH KIDNEY STONE DESTRUCT [facility] Start: 05-30-2024 Bacteria identified in Urine by Culture Urine Culture [facility] Start: 05-30-2024 Cysto/uretero w/lithotripsy &indwell stent insrt CYSTO/URETERO W/LITHOTRIPSY [facility] Start: 05-30-2024 Urine culture [facility] Start: 05-30-2024 Consultation [facility] Start: 05-30-2024 [facility] Start: 05-12-2024 Bacteria identified in Urine by Culture Urine Culture [facility] Start: 05-12-2024 [facility] Start: 05-12-2024 End: 05-12-2024 [facility] Start: 04-28-2024 [facility] Start: 04-28-2024 End: 04-28-2024 Patient encounter procedure 04/28/2024 10:20 AM EST Office Visit [facility] [address] [place] [address] Desire Lanier APRN.[facility] [address] [place] [address] follow up [facility] Comment on above: follow up Start: 03-02-2024 End: 03-02-2024 Patient encounter procedure 03/02/2024 2:00 PM EST Office Visit [facility] [address] [place] [address] Desire Lanier, COVER REMOVER.SUPERVISOR [employer] [address] [place] [address] 3 month f/u [facility] Comment on above: 3 month f/u Start: 02-23-2024 Hemoglobin A1c measurement HbA1C [facility] Start: 01-26-2024 End: 01-26-2024 ambulatory Hematology/Oncolog y Comment on above: 2ND FLOOR Start: 01-26-2024 End: 01-26-2024 Patient encounter procedure 01/26/2024 12:50 PM EST Appointment Mammogram [address] [place] [address] Encounter for screening mammogram for malignant neoplasm of breast [Z12.31] Mammogram Comment on above: Encounter for screening mammogram for ma lignant neoplasm of breast [Z12.31] Start: 01-26-2024 End: 01-26-2024 Patient encounter procedure 01/26/2024 11:40 AM EST Office Visit OB/Gynecology [address] [place] [address] Carlton Kay MD [address] [place] [address] Annual OB/Gynecology Comment on above: Annual Start: 01-24-2024 End: 01-24-2024 ambulatory Hematology/Oncolog y Comment on above: 2ND FLOOR Start: 01-19-2024 End: 01-19-2024 ambulatory Hematology/Oncolog y Comment on above: 2ND FLOOR Start: 01-17-2024 End: 01-17-2024 ambulatory Hematology/Oncolog y Comment on above: 2ND FLOOR Start: 01-12-2024 End: 01-12-2024 ambulatory 01/12/2024 2:00 PM EST Visit (SP) Office Hematology/Oncology [address] [place] [address] 2ND FLOOR Hematology/Oncolog y Comment on above: 2ND FLOOR Start: 01-06-2024 End: 01-06-2024 Patient encounter procedure Mammogram Comment on above: Encounter for screening mammogram for ma lignant neoplasm of breast [Z12.31] Annual Start: 12-23-2023 End: 12-23-2023 Patient encounter procedure 12/23/2023 3:20 PM EDT Office Visit OB/Gynecology [address] [place] [address] Emily Plunkett MD [address] [place] [address] post op OB/Gynecology Comment on above: post op Start: 12-23-2023 End: 03-23-2024 CBC panel - Blood by Automated count [facility] Work Phone: Comment on above: Expected: 12/23/2023, Expires: Start: 12-23-2023 End: 03-23-2024 Cobalamin (Vitamin B12) [Mass/volume] in Serum or Plasma [facility] Comment on above: Expected: 12/23/2023, Expires: Start: 12-23-2023 End: 03-23-2024 Ferritin [Mass/volume] in Serum or Plasma [facility] Comment on above: Expected: 12/23/2023, Expires: Start: 12-23-2023 End: 03-23-2024 Follitropin [Units/volume] in Serum or Plasma [facility] Comment on above: Expected: 12/23/2023, Expires: Start: 12-23-2023 End: 03-23-2024 Iron and Iron binding capacity panel - Serum or Plasma [facility] Comment on above: Expected: 12/23/2023, Expires: Start: 12-07-2023 Lipid 1995 panel - Serum or Plasma Lipid Screening [facility] Start: 12-07-2023 Lipid panel Lipid Screening [facility] Start: 11-29-2023 End: 02-28-2024 Lipid 1996 panel - Serum or Plasma LIPID PANEL BASIC Lab Routine Hyperlipidemia with target LDL less than 130 Expected: 11/29/2023, Expires: 02/28/2024 [facility] Work Phone: Comment on above: Expected: 11/29/2023, Expires: Start: 11-25-2023 End: 11-25-2023 Patient encounter procedure 11/25/2023 2:00 PM EDT Office Visit [facility] [address] [place] [address] Desire Lanier, COVER REMOVER.SUPERVISOR [employer] [address] [place] [address] 3 mth f/u per pt [facility] Comment on above: 3 mth f/u per pt Start: 11-24-2023 End: 02-23-2024 CBC panel - Blood by Automated count COMPLETE BLOOD COUNT Lab Routine Menorrhagia with regular cycle Expected: 11/24/2023, Expires: 02/23/2024 [facility] Work Phone: Comment on above: Expected: 11/24/2023, Expires: Start: 11-24-2023 End: 02-23-2024 Iron and Iron binding capacity panel - Serum or Plasma IRON AND TIBC Lab Routine Menorrhagia with regular cycle Expected: 11/24/2023, Expires: 02/23/2024 [facility] Comment on above: Expected: 11/24/2023, Expires: Start: 11-24-2023 End: 11-24-2023 Patient encounter procedure 11/24/2023 11:10 AM EDT Office Visit OB/Gynecology [address] [place] [address] Emily Plunkett MD [address] [place] [address] Surgical consult referred by [facility] Comment on above: Surgical consult referred by [facility] Start: 11-17-2023 End: 11-17-2023 Patient encounter procedure 11/17/2023 2:45 PM EDT Office Visit OB/Gynecology [address] [place], [place] [id number] Suze Pleitez APRN.CN [address] [place] [address] [facility] OB/Gynecology Comment on above: [facility] Start: 10-31-2023 Covid-19 Vaccine ( season) Covid-19 Vaccine () [facility] Start: 10-31-2023 Covid-19 Vaccine () Covid-19 Vaccine () [facility] Start: 10-31-2023 Influenza vaccination [facility] Start: 10-28-2023 End: 10-28-2023 Manual pelvic examination 10/28/2023 3:00 PM EDT Procedure OB/Gynecology [address] [place] [address] pelvic ultrasound OB/Gynecology Comment on above: pelvic ultrasound Start: 10-20-2023 End: 10-20-2023 Patient encounter procedure 10/20/2023 2:00 PM EDT Office Visit OB/Gynecology [address] [place] [address] Suze Pleitez APRN.CNM [address] [place] [address] abnormal bleeding OB/Gynecology Comment on above: abnormal bleeding Start: 10-20-2023 End: 01-19-2024 Prolactin [Mass/volume] in Serum or Plasma [facility] Comment on above: Expected: 10/20/2023, Expires: 4 Start: 10-20-2023 End: 01-19-2024 Thyrotropin [Units/volume] in Serum or Plasma [facility] Work Phone: Comment on above: Expected: 10/20/2023, Expires: 4 Start: 10-20-2023 End: 10-19-2024 US Pelvis PELVIC US [facility] Imaging Routine Abnormal uterine bleeding (AUB) Iron deficiency anemia due to chronic blood loss Expected: 10/20/2023, Expires: 10/19/2024 [facility] Comment on above: Expected: 10/20/2023, Expires: 5 Start: 10-14-2023 End: 10-14-2023 Patient encounter procedure 10/14/2023 1:20 PM EDT Office Visit [facility] [address] [place] [address] Desire Lanier APRN.SUPERVISOR [employer] [address] [place] [address] Express care follow up [facility] Comment on above: Express care follow up Start: 09-23-2023 HPV TESTING HPV TESTING [facility] Start: 09-23-2023 Lipid 1996 panel - Serum or Plasma Lipid Screening [facility] Start: 09-23-2023 LIPID SCREEN LIPID SCREEN [facility] Start: 09-23-2023 PAP TESTING PAP TESTING [facility] Start: 09-23-2023 Screening for malignant neoplasm of cervix [facility] Start: 08-25-2023 End: 11-24-2023 CBC W Auto Differential panel - Blood COMPLETE BLOOD COUNT AND DIFFERENTIAL Lab Routine Iron deficiency anemia, unspecified iron deficiency anemia type Expected: 08/25/2023, Expires: 11/24/2023 [facility] Work Phone: Comment on above: Expected: 08/25/2023, Expires: Start: 08-02-2023 RECHECK 20 RECHECK 20 [facility] Start: 07-03-2023 [facility] Start: 05-03-2023 [facility] Start: 02-10-2023 [facility] Start: 01-07-2023 Ophthalmic examination and evaluation COMPLETE EYE EXAM 20 [employer] [facility] [facility] Start: 01-04-2023 [facility] Start: 12-21-2022 [facility] Start: 10-30-2022 Covid-19 Vaccine ( season) Covid-19 Vaccine () [facility] Start: 10-30-2022 Influenza vaccination [facility] Start: 07-28-2022 RECHECK 20 RECHECK 20 [facility] Start: 07-28-2022 [facility] Start: 07-27-2022 CBC W Auto Differential panel - Blood [facility] Start: 07-27-2022 Ferritin [Mass/volume] in Serum or Plasma [facility] Start: 07-27-2022 hemoglobin A1c + average glucose, QN, blood [facility] Start: 07-27-2022 Iron panel - Serum or Plasma [facility] Start: 07-16-2022 RECHECK 20 RECHECK 20 [facility] Start: 2022 SHINGRIX VACCINE (1 of 2) SHINGRIX VACCINE (1 of 2) [facility] Start: 05-25-2022 [facility] Start: 05-07-2022 PROBLEM PROBLEM [place] [email or web address] Start: 05-07-2022 XR, ankle, 3 or more view [facility] Start: 05-07-2022 XR, foot, 3 or more view [facility] Start: 05-07-2022 hydrocodone 5 mg-acetaminophen 325 mg tablet [facility] Start: 03-27-2022 MEDICAL MARIJUANA 15 MEDICAL MARIJUANA 15 [facility] Start: 01-30-2022 VIRTUAL UC VISIT 5 VIRTUAL UC VISIT 5 [facility] Start: 01-30-2022 benzonatate 100 mg capsule [facility] Start: 01-15-2022 RECHECK 20 RECHECK 20 [facility] Start: 01-15-2022 FFD mammogram Breast - bilateral Screening [facility] Start: 01-15-2022 Hemoglobin.gastrointestinal [Presence] in Stool by Rapid immunoassay [facility] Start: 01-15-2022 [facility] Start: 01-05-2022 [facility] visit new patient NEW PATIENT 20 [facility] Start: 11-10-2021 [facility] Start: 11-10-2021 PROBLEM PROBLEM [facility] Start: 10-30-2021 FQHC visit new patient NEW PATIENT 20 [facility] Start: 10-30-2021 Influenza vaccination [facility] Start: 10-23-2021 CBC W Auto Differential panel - Blood [facility] Start: 10-23-2021 POST OP 5 POST OP 5 [facility] Start: 09-22-2021 DIABETES SCREEN DIABETES SCREEN [facility] Start: 09-18-2021 RECHECK 20 RECHECK 20 [facility] Start: 09-02-2021 PROBLEM PROBLEM [place] [facility] Start: 09-02-2021 influenza virus A + B and SARS CoV 2 and SARS-related CoV RNA panel, ARISTIDES+probe, respiratory specimen [facility] Start: 09-02-2021 cyclobenzaprine 10 mg tablet [place] [facility] Start: 08-28-2021 BMP, serum or plasma [facility] Start: 08-28-2021 CBC W Auto Differential panel - Blood [facility] Start: 08-28-2021 EKG study [facility] Start: 08-28-2021 hysteroscopy, with endometrial ablation (SURG) [facility] Start: 08-28-2021 XR Chest 2 Views Heriberot Kilpatrick:[facility] Start: 06-30-2022 PAD 20 PAD 20 [place] - [facility] Start: 08-28-2021 PRE OP 10 PRE OP 10 [place] [facility] Start: 08-25-2021 [facility] visit new patient NEW PATIENT 20 [place] [facility] Start: 07-30-2021 YEARLY 10 YEARLY 10 [place] - [facility] Start: 07-24-2021 RECHECK 45 RECHECK 45 [place] [facility] Start: 07-22-2021 [facility] visit new patient NEW PATIENT 15 [place] - [facility] Start: 07-17-2021 RECHECK 45 RECHECK 45 [place] [facility] Start: 07-10-2021 RECHECK 45 RECHECK 45 [place] [facility] Start: 07-03-2021 RECHECK 45 RECHECK 45 [place] [facility] Start: 07-02-2021 TROUBLE 10 TROUBLE 10 [place] - [facility] Start: 07-02-2021 CBC W Auto Differential panel - Blood [facility] Start: 07-02-2021 Choriogonadotropin ( test) [Presence] in Urine [facility] Start: 07-02-2021 US Pelvis transvaginal [facility] Start: 06-26-2021 RECHECK 45 RECHECK 45 [place] [facility] Start: 06-19-2021 RECHECK 45 RECHECK 45 [place] [facility] Start: 06-19-2021 RECHECK 20 RECHECK 20 [place] - [facility] Start: 06-19-2021 CBC W Auto Differential panel - Blood [facility] Start: 06-19-2021 ferritin, serum or plasma [facility] Start: 06-19-2021 hemoglobin A1c + average glucose, QN, blood lab [facility] Start: 06-19-2021 iron panel, serum or plasma lab [facility] Start: 06-19-2021 Patient encounter procedure [facility] Start: 12-18-2020 COVID-19 Vaccine (3 - Booster for Moderna series) COVID-19 Vaccine (3 - Booster for Moderna series) [facility] Start: 10-30-2020 Influenza vaccination [facility] Start: 09-12-2020 COVID-19 VACCINE (3 - Booster for Moderna series) COVID-19 VACCINE (3 - Booster for Moderna series) [facility] Start: 09-12-2020 COVID-19 VACCINE (3 - Moderna series) COVID-19 VACCINE (3 - Moderna series) [facility] Start: 09-10-2020 Mammography [facility] Start: 09-10-2020 Screening for malignant neoplasm of breast [facility] Start: 09-10-2020 Screening mammography Mammogram [facility] Start: 2017 COLOGUARD (FIT-DNA) COLOGUARD (FIT-DNA) [facility] Start: 2017 Colonoscopy COLONOSCOPY [facility] Start: 2017 COLORECTAL CANCER SCREENING COLORECTAL CANCER SCREENING [facility] Start: [address] COLONOGRAPHY [facility] Start: 2017 FECAL OCCULT BLOOD FECAL OCCULT BLOOD [facility] Start: 2017 Screening for malignant neoplasm of colon [facility] Start: 2017 SIGMOIDOSCOPY SIGMOIDOSCOPY [facility] Start: 06-15-1991 Hepatitis B Vaccine (1 of 3 - 19+ 3-dose series) Hepatitis B Vaccine (1 of 3 - 19+ 3-dose series) [facility] Start: 06-15-1991 Pneumococcal Vaccine: 50+ (1 of 2 - PCV) Pneumococcal Vaccine: 50+ (1 of 2 - PCV) [facility] Start: 06-15-1991 [facility] Start: 1990 Hepatitis C screening Hepatitis C Screening [facility] Start: 06-15-1987 HIV screening HIV Screening [facility] Start: 1984 Depression screening using PHQ-9 (Patient Health Questionnaire 9) score [facility] Start: 1982 Diabetic foot examination Diabetic Foot Exam [facility] Start: 1982 Glaucoma screening Dilated Retinal Exam [facility] Start: 1982 Hepatitis B screening Urine Albumin:Creatinine Ratio [facility] Start: 1978 Pneumococcal vaccination Pneumococcal Vaccine (1 of 2 - PCV) [facility] Start: 06-15-1975 History and physical examination, annual for health maintenance Wellness Visit [facility] Start: 1972 HEPATITIS B (1 of 3 - 3-dose series) HEPATITIS B (1 of 3 - 3-dose series) [facility] Start: 1972 Hepatitis B Vaccine (1 of 3 - 3-dose series) Hepatitis B Vaccine (1 of 3 - 3-dose series) [facility] Start: 1972 Screening for malignant neoplasm of cervix PAP SMEAR [facility] Start: 1972 Screening for malignant neoplasm of colon [facility] Start: 1972 Screening mammography [facility] Start: 1972 Tetanus vaccination [facility] End: 08-03-2020 Bacteria identified in Unspecified specimen by Aerobe culture Urine Aerobic Culture Microbiology Routine Once for 1 Occurrences starting 08/03/2020 until 08/03/2020 [facility] Comment on above: Once for 1 Occurrences starting 08/04/19 21 until 08/03/2020 Bacteria identified in Urine by Culture URINE CULTURE Microbiology Routine Flank pain Urinary tract infection with hematuria, site unspecified 10/29/2022 4:12 PM EDT [facility] Work Phone: Cholecystectomy [facility] COVID & INFLUENZA A/ B & RSV PCR, ROUTINE COVID & INFLUENZA A/B & RSV PCR, ROUTINE Microbiology Routine URI, acute Ordered: 12/11/2023 [facility] Work Phone: Comment on above: Ordered: 12/11/2023 End: 01-21-2025 DBT Breast - bilateral screening OCTAVIO SCREENING W [facility]LVESTER Radiology Routine Encounter for screening mammogram for malignant neoplasm of breast 1 Occurrences starting 12/23/2023 until 01/21/2025 [facility] Comment on above: 1 Occurrences starting 12/23/2023 until 01/21/2025 DBT Breast - bilater al screening OCTAVIO SCREENING W [facility] Radiology Routine Encounter for screening mammogram for malignant neoplasm of breast 08/04/2024 2:16 PM EDT [facility] Work Phone: End: 07-13-2025 Echocardiography ECHO Cardiology Routine Chest pain, unspecified type SOB (shortness of breath) on exertion Near syncope 1 Occurrences starting 07/13/2024 until 07/13/2025 [facility] Comment on above: 1 Occurrences starting 07/13/2024 until 07/13/2025 Endometrial ablation Endometrial Ablation [facility] Endometrial bx w/wo endocervix bx w/o dilat spx ENDOMETRIAL BIOPSY Procedures Routine Abnormal uterine bleeding (AUB) Iron deficiency anemia due to chronic blood loss Ordered: 10/20/2023 [facility] Comment on above: Ordered: 10/20/2023 Endometrial bx w/wo endocervix bx w/o dilat spx ENDOMETRIAL BIOPSY Procedures Routine Abnormal uterine bleeding (AUB) Endometrial thickening on ultrasound Ordered: 11/17/2023 [facility] Work Phone: Comment on above: Ordered: 11/17/2023 Hemoglobin.gastroint estinal .lower [Presence] in Stool by Immunoassay IMMUNOCHEMICAL FECAL OCCULT BLOOD TEST Lab Routine Iron deficiency anemia, unspecified iron deficiency anemia type Ordered: 09/03/2023 [facility] Work Phone: Comment on above: Ordered: 09/03/2023 Ligation of fallopian tube ligat ion of fallopian tube [facility] End: 08-12-2025 NM Heart Perfusion W multiple states of exercise NM CARDIAC PERF STRESS/EXERCISE Radiology Routine Encounter for screening for cardiovascular disorders Chest pain, unspecified type SOB (shortness of breath) on exertion Near syncope 1 Occurrences starting 07/13/2024 until 08/12/2025 [facility] Comment on above: 1 Occurrences starting 07/13/2024 until 08/12/2025 PAP TEST PAP TEST Lab Manolo myers Screening for cervical cancer Screening for human papillomavirus 11/17/2023 3:45 PM EDT [facility] Patient Education [facility] Work Phone: Patient referral [facility] Work Phone: Standard chest X-ray XR Chest AP /PA and LAT Imaging SK[facility] 04/29/2019 12:23 PM EST [facility] SURGICAL PATHOLOGY SURGICAL PATH OLOGY Lab Routine Abnormal uterine bleeding (AUB) Endometrial thickening on ultrasound 11/17/2023 3:28 PM EDT [facility] Urine culture [facility] Urine culture [facility] End: 08-12-2025 US Lower extremity vein - right US DVT LOWER RIGHT Radiology STAT Edema of right lower extremity 1 Occurrences starting 07/13/2024 until 08/12/2025 [facility] Comment on above: 1 Occurrences starting 07/13/2024 until 08/12/2025 End: 05-21-2024 XR Ankle - bilateral AP and Lateral and oblique XR ANKLE GENERAL 3V AP/LAT/OBL BILATERAL Radiology Routine Posterior tibial tendon dysfunction Pes planus of both feet Controlled type 2 diabetes mellitus without complication, unspecified whether nursing home insulin use (HCC) 1 Occurrences starting 04/22/2023 until 05/21/2024 [facility] Work Phone: Comment on above: 1 Occurrences starting 04/22/2023 until 05/21/2024 XR Ankle - bilateral AP and Lateral and oblique XR ANKLE GENERAL 3V AP/LAT/OBL BILATERAL Radiology Routine Posterior tibial tendon dysfunction Pes planus of both feet Controlled type 2 diabetes mellitus without complication, 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 (HCC) 04/22/2023 11:57 AM EST [facility] Work Phone: End: 05-21-2024 XR Foot - bilateral AP and Lateral and oblique XR FOOT GENERAL 3V AP/LAT/OBL BILATERAL Radiology Routine Posterior tibial tendon dysfunction Pes planus of both feet Controlled type 2 diabetes mellitus without complication, unspecified whether nursing home insulin use (HCC) 1 Occurrences starting 04/22/2023 until 05/21/2024 [facility] Work Phone: Comment on above: 1 Occurrences starting 04/22/2023 until 05/21/2024 XR Foot - bilateral AP and Lateral and oblique XR FOOT GENERAL 3V AP/LAT/OBL BILATERAL Radiology Routine Posterior tibial tendon dysfunction Pes planus of both feet Controlled type 2 diabetes mellitus without complication, 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 (HCC) 04/22/2023 11:55 AM EST [facility] Work Phone: End: 01-11-2024 XR FOOT GENERAL 3V AP/LAT/OBL RIGHT XR FOOT GENERAL 3V AP/LAT/OBL RIGHT Radiology Routine Acute foot pain, right 1 Occurrences starting 12/12/2022 until 01/11/2024 [facility] Work Phone: Comment on above: 1 Occurrences starting 12/12/2022 until 01/11/2024 [facility] Immunizations Immunization Date Immunization Notes Care Provider Lilia zaragoza 12-03-2023 influenza, seasonal, injectable, preservative free Enrique Martin APRN.CNP Work Phone: [facility] 07-18-2020 SARS-COV-2 (COVID-19 ) vaccine, mRNA, spike protein, LNP, preservative free, 100 mcg/0.5mL dose Brunilda Brown [facility] 06-20-2020 SARS-COV-2 (COVID-19 ) vaccine, mRNA, spike protein, LNP, preservative free, 100 mcg/0.5mL dose Brunilda Brown [facility] 12-06-2018 influenza, injectabl e, quadrivalent, contains preservative Brunilda Brown [facility] 12-06-2018 influenza, injectabl e, quadrivalent, preservative free Generic Medone Tish [facility] 12-06-2018 influenza virus vaccine, unspecified formulation Katherine Hubbard APRN.SUPERVISOR [employer] Work Phone: [facility] Payers Date Payer Category Payer Self-pay [id number] 2018 Medicaid [employer] [place] [facility] x[place]xx 2018-Present xxxxxxxxxxx [id number] 2018 Medicaid [employer] MEDICA[employer] [id number] 2018-Present [id number] 2018 Medicaid [id number]. [id number] 2012 Medicaid [id number] 2012 Medicaid [id number] 1972 Unknown [id number] 2.840.1.665667.3.579.2.900 1972 Unknown [id number] 2.840.1.358273.3.579.2.900 1972 Unknown [id number] 2.840.1.241455.3.579.2.900 1972 Unknown [id number] .840.1.953610.3.579.2.903 1972 Unknown [id number] .840.1.275678.3.579.2.903 1972 Unknown [id number] .840.1.147246.3.579.2.903 1972 Unknown [id number] .840.1.520809.3.579.2.903 1972 Unknown [id number] ..840.1.811859.3.579.2.903 1972 Unknown [id number] 2.16.840.1.223164.3.579.2.516 Unknown [id number] 2.16.840.1.238773.3.579.2.462 Unknown [id number] .840.1.389314.3.579.2.462 Unknown [id number] 2.16.840.1.092714.3.579.2.462 Unknown [id number] 2.16.840.1.660348.3.579.2.462 Unknown [id number] 2.16.840.1.337097.3.579.2.462 Unknown [id number] 2.16.840.1.435576.3.579.2.462 Unknown [id number] 2.16.840.1.064406.3.579.2.462 Unknown [id number] 2.16.840.1.970576.3.579.2.462 Unknown [id number] 2.16.840.1.531978.3.579.2.462 Unknown [id number] 2.16.840.1.069200.3.579.2.462 Unknown [id number] 2.16.840.1.338272.3.579.2.462 Social History Date Type Detail Facility Start: 12-06-2018 End: 08-29-2024 Tobacco smoking status NHIS Never smoker [facility] Start: 12-06-2018 End: 02-11-2021 Alcohol intake Lifetime non-drinker (finding) [facility] Start: 12-06-2018 End: 04-29-2019 History SDOH Alcohol Frequency 1 [facility] Start: 1970 Sex Assigned At Not on file O [facility] Start: 08-03-2020 End: 08-24-2023 Tobacco use and exposure Never used [facility] Exposure to SARS-CoV -2 (event) Not sure [facility] Start: 05-25-2022 End: 07-03-2023 Tobacco smoking status DEIS Unknown if ever smoked [facility] Start: 05-25-[address] [facility] Start: 05-25-[address] [facility] Start: 1970 Sex Assigned At Female W [facility] Start: 03-29-2020 End: 05-20-2023 Alcohol intake Current non-drinker of alcohol (finding) [facility] Start: 10-10-2022 End: 04-22-2023 History of Social function [facility] Start: 10-10-2022 End: 04-22-2023 Tobacco use panel [facility] Adult Depression Screening Assessment 2 [facility] Start: 08-24-2023 End: 07-13-2024 Alcohol intake Ex-drinker (finding) [facility] Start: 08-24-2023 [facility] Start: 05-12-2024 End: 05-30-2024 Tobacco smoking status NHIS Current some day smoker [facility] Start: 05-12-2024 End: 05-31-2024 Sex Female (finding) [facility] NEGATED: Highlighted row [facility] NEGATED: Highlighted row Not [facility] Medical Equipment Procedure Code Equipment Code Equipment Original Text Equipment Identifier Dates Procedure Implant ([id number]) Lithotripsy, ESWL STENT,URETERAL PIGTAIL 6FRx26 FDA Start: 05-31-2024 Hysteroscopy with use of Symphion bipolar tissue removal system with dilation and cur DRESSING,SURGICEL 4x8 FDA Start: 12-03-2023 Hysteroscopy with use of Symphion bipolar tissue removal system with dilation and cur DRESSING,SURGICEL 4x8 FDA Start: 12-03-2023 Hysteroscopy with use of Symphion bipolar tissue removal system with dilation and cur DRESSING,SURGICEL 4x8 FDA Start: 12-03-2023 Hysteroscopy with use of Symphion bipolar tissue removal system with dilation and cur DRESSING,SURGICEL 4x8 FDA Start: 12-03-2023 USE TO TEST BLOO D GLUCOSE 3 TIMES DAILY. Start: 11-25-2023 Goals Date Patient Goal Desired Activity /State Functional Status Date Assessment Result Facility 05-31-2024 Functional status Bathroom Privilege [facility] Work Phone: 05-31-2024 Functional status Tolerates Activity Well [facility] Work Phone: Mental Status Date Assessment Result Facility 05-31-2024 Cognitive function Touch/Shaking [facility] Work Phone: 04-28-2024 Cognitive function Level Of Cons ciousness Awake;Alert;Appropriate;Follow s Commands [facility] Work Phone: 04-07-2023 Cognitive function Level Of Cons ciousness Awake;Alert;Appropriate;Follow s Commands [facility] Work Phone: 11-06-2022 Cognitive function Level Of Cons ciousness Awake;Alert;Appropriate [facility] Work Phone: 09-09-2022 Cognitive function Level Of Cons ciousness Awake;Alert;Appropriate;Follow s Commands [facility] Work Phone: 07-06-2022 Cognitive function Level Of Cons ciousness Awake;Alert;Appropriate;Follow s Commands [facility] Work Phone: 05-25-2022 Cognitive function Awake;Alert;A ppropriate;Follow s Commands [facility] Work Phone: Clinical Notes 02-11-2007 to 08-29-2024 Peggy Medeiros Mammo [facility] - 08/04/2024 2:30 PM EDTTelephone Encounter - Susy Mac [place] - 08/03/2024 10:54 AM EDTTelephone Encounter - Bubba Susy [place] - 08/03/2024 10:54 AM EDT Note Date & Type Note Facility 08-29-2024 Radiology Diagnostic study note [facility] Imaging Services [address] [place] [address] Abdomen/Pelvis without Cont MR#: [id number] Acct: [id number] Name: LAKEISHA TOPETE Rep #: [id number] : 1970 F 54 From: Van Sanchez MD PCP: CHRISSY Alcantara Status: REG E R Study:Abdomen/Pelvis without Cont Date of Exa m: 08/29/24 Exam# [id number] Ordering Dr: Jose Valdez DO PROCEDURE: ABDOMEN/PELVIS WITHOUT CONT 08/29/2024 REASON FOR EXAM: PAIN TECHNIQUE: ABDOMEN/PELVIS WITHOUT CONT Noncontrast technique limits evaluation of the abdominal and pelvic viscera. Coronal and Sagittal reconstruction series were provided. One or more dose reduction techniques were used (e.g., Automated exposure control, adjustment of the mA and/or kV according to patient size, use of iterative reconstruction technique). RADIATION DOSE SUMMARY: CTDlvol: 18.63 mGy DLP: 898.22 mGycm COMPARISON: 05/30/2024. FINDINGS: The peripheral soft tissues are unremarkable. Degenerative changes of the spine. Normal caliber abdominal aorta. No suspicious lymphadenopathy. Borderline enlargement of the liver. The gallbladder is surgically absent. The pancreas, spleen, and adrenals are unremarkable. Right distal ureter 6 mm calculus with minimal upstream hydroureteronephrosis. Additional bilateral punctate nonobstructing calculi. The urinary bladder is unremarkable. CT/Abdomen/Pelvis without Cont IMPRESSION: Right distal ureter 6 mm calculus with minimal upstream hydroureteronephrosis. Additional bilateral punctate nonobstructive nephrolithiasis. Reading Location: [id number] CC: CHRISSY Lanier; Dr. Jose Choi-Elsie, DO Hadoop Architect: Signed [facility] 08-04-2024 History of Presen t illness Narrative Radiology Service Progress Note PATIENT NAME: Lakeisha Topete DATE OF SERVICE: August 04, 2024 TIME: 3:02 PM PATIENT IDENTITY VERIFICATION COMPLETED USING TWO (2) IDENTIFIERS: Name and Date of confirmed by patient verbally. FALL SCREENING: Has the patient had 2 falls in the last year or 1 fall with injury or currently using an Ambulatory Assistive Device (Walker, Cane, Wheelchair, Crutches, etc.)? No PATIENT GENDER DATA: Assigned female at . status: : No status: NO. PATIENT RELEVANT IMPLANT DATA REVIEWED: Not Applicable PATIENT PRESENTS WITH AN IMPLANTABLE OR ATTACHED SCAFFOLD ERECTOR: No RADIOLOGY DEPARTMENT: Mammography PERIPHERAL IV DATA: Not applicable SIGNED BY: Sharif Martinez August 04, 2024 3:02 PM documented in this encounter [facility] 08-04-2024 Note HNO ID: [id number] Author: PEGGY MEDEIROS Mammo Tech Service: ? Author Type: [employer] Paralegal Type: Progress Notes Filed: 08/04/2024 15:02 Note Text: Radiology Service Progress Note PATIENT NAME: Lakeisha Topete DATE OF SERVICE: August 04, 2024 TIME: 3:02 PM PATIENT IDENTITY VERIFICATION COMPLETED USING TWO (2) IDENTIFIERS: Name and Date of confirmed by patient verbally. FALL SCREENING: Has the patient had 2 falls in the last year or 1 fall with injury or currently using an Ambulatory Assistive Device (Walker, Cane, Wheelchair, Crutches, etc.)? No PATIENT GENDER DATA: Assigned female at . status: : No status: NO. PATIENT RELEVANT IMPLANT DATA REVIEWED: Not Applicable PATIENT PRESENTS WITH AN IMPLANTABLE OR ATTACHED SCAFFOLD ERECTOR: No RADIOLOGY DEPARTMENT: Mammography PERIPHERAL IV DATA: Not applicable SIGNED BY: Peggy Medeiros [facility] August 04, 2024 3:02 PM [facility] 08-03-2024 Telephone encounter Note Pt. Aware. Susy Mac MA [facility] 08-03-2024 Miscellaneous Notes Pt. Aware. Susy Mac MA ----- Message from Desire Lanier APRN.CNP sent at 08/02/2024 7:13 PM EDT ----- Stress test was normal. ----- Message from Desire Lanier APRN.SUPERVISOR [employer] sent at 08/02/2024 7:13 PM EDT ----- Stress test was normal. documented in this encounter [facility] 08-03-2024 Telephone encounter Note ----- Message from Desire Lanier APRN.CNP sent at 08/02/2024 7:13 PM EDT ----- Stress test was normal. T [facility] 08-03-2024 Telephone encounter Note ----- Message from Desire Lanier APRN.SUPERVISOR [employer] sent at 08/02/2024 7:13 PM EDT ----- Stress test was normal. [facility] 08-02-2024 History of Presen t illness Narrative RADIOLOGY SERVICE PROGRESS NOTE SERVICE DATE: 08/02/2024 SERVICE TIME: 12:37 PM PATIENT IDENTITY VERIFICATION COMPLETED USING TWO (2) STANDARD IDENTIFIERS: Name and Date of confirmed by patient verbally and Name and Date of confirmed by identification band FALL SCREENING: Has the patient had 2 falls in the last year or 1 fall with injury or currently using an Ambulatory Assistive Device (Walker, Cane, Wheelchair, Crutches, etc.)? No PATIENT GENDER DATA: .female : No ALLERGIES: Reviewed and unchanged MEDICATIONS REVIEWED: Not applicable PATIENT RELEVANT IMPLANT DATA REVIEWED: Not Applicable PATIENT PRESENTS WITH AN IMPLANTABLE OR ATTACHED SCAFFOLD ERECTOR: No CREATININE: Creatinine Date Value Ref Range Status 07/28/2024 0.75 0.58 - 0.96 mg/dL Final 08/24/2023 0.68 0.58 - 0.96 mg/dL Final 10/15/2022 0.72 0.58 - 0.96 mg/dL Final Estimated Glomerular Filtration Rate Date Value Ref Range Status 07/28/2024 96 >=60 mL/min/1.73m Final Comment: Estimated Glomerular Filtration Rate (eGFR) is calculated using the 2020 CKD-EPI creatinine equation. This equation utilizes serum creatinine, sex, and age as parameters. The creatinine assay has traceable calibration to isotope dilution-mass spectrometry. Refer to KDIGO guidelines for clinical interpretation. In patients with unstable renal function, e.g. those with acute kidney injury, the eGFR may not accurately reflect actual GFR. eGFR- Date Value Ref Range Status 09/22/2018 >60 Final P.O.C.T. RESULTS: N/A August 02, [address] PERFORMED: No IV SITE: Ambulatory: A peripheral IV was started in the Right antecubital site with a Angio cath: 22 gauge. POST EXAM PIV STATUS: Discontinued PROCEDURE TYPE: [place] Stress: 17.5mCi [id number] was administered IV for Rest Imaging at 11:42 by MM. 52.7 mCi Vt15o-Tlahrkr was administered IV for Stress Imaging at 13:08 by . PATIENT DISCHARGED TO: Ambulatory patient, left [place] department area. Is this a therapy: No A Diagnostic radioactive procedure has taken place, with no further precautions necessary other than routine body substance precautions. More information regarding radiation safety can be found using this link: [email or web address] [email or web address]-%20Diagnostic%20N uclear%20Medicine%20Procedures.p df SIGNATURE: OLU Das PATIENT NAME: Lakeisha Topete DATE: August 02, 2024 TIME: 12:37 PM PAGER/CONTACT #: documented in this encounter [facility] 08-02-2024 Note HNO ID: [id number] Author: FIORDALIZA GUAJARDO CT Service: Nuclear Medicine Author Type: Technologist Type: Progress Notes Filed: 08/02/2024 13:28 Note Text: RADIOLOGY SERVICE PROGRESS NOTE SERVICE DATE: 08/02/2024 SERVICE TIME: 12:37 PM PATIENT IDENTITY VERIFICATION COMPLETED USING TWO (2) STANDARD IDENTIFIERS: Name and Date of confirmed by patient verbally and Name and Date of confirmed by identification band FALL SCREENING: Has the patient had 2 falls in the last year or 1 fall with injury or currently using an Ambulatory Assistive Device (Walker, Cane, Wheelchair, Crutches, etc.)? No PATIENT GENDER DATA: .female : No ALLERGIES: Reviewed and unchanged MEDICATIONS REVIEWED: Not applicable PATIENT RELEVANT IMPLANT DATA REVIEWED: Not Applicable PATIENT PRESENTS WITH AN IMPLANTABLE OR ATTACHED SCAFFOLD ERECTOR: No CREATININE: Creatinine Date Value Ref Range Status 07/28/2024 0.75 0.58 - 0.96 mg/dL Final 08/24/2023 0.68 0.58 - 0.96 mg/dL Final 10/15/2022 0.72 0.58 - 0.96 mg/dL Final Estimated Glomerular Filtration Rate Date Value Ref Range Status 07/28/2024 96 >=60 mL/min/1.73m? Final Comment: Estimated Glomerular Filtration Rate (eGFR) is calculated using the 2020 CKD-EPI creatinine equation. This equation utilizes serum creatinine, sex, and age as parameters. The creatinine assay has traceable calibration to isotope dilution-mass spectrometry. Refer to KDIGO guidelines for clinical interpretation. In patients with unstable renal function, e.g. those with acute kidney injury, the eGFR may not accurately reflect actual GFR. eGFR- Date Value Ref Range Status 09/22/2018 >60 Final P.O.C.T. RESULTS: N/A August 02, [address] PERFORMED: No IV SITE: Ambulatory: A peripheral IV was started in the Right antecubital site with a Angio cath: 22 gauge. POST EXAM PIV STATUS: Discontinued PROCEDURE TYPE: [place] Stress: 17.5mCi [id number]-Rponsai was administered IV for Rest Imaging at 11:42 by . 52.7 mCi Hp74m-Srnofpc was administered IV for Stress Imaging at 13:08 by . PATIENT DISCHARGED TO: Ambulatory patient, left [place] department area. Is this a therapy: No A Diagnostic radioactive procedure has taken place, with no further precautions necessary other than routine body substance precautions. More information regarding radiation safety can be found using this link: [email or web address] [email or web address]-% 20Diagnostic%20Nuclear%20Medicin e%20Procedures.pdf SIGNATURE: OLU Das PATIENT NAME: Lakeisha Topete DATE: August 02, 2024 TIME: 12:37 PM PAGER/CONTACT #: [facility] 08-01-2024 Telephone encounter Note Left message regarding reminder and instructions for stress test tomorrow. This included where to check in, length of test and no caffeine for 12 hours prior to test. [facility] 08-01-2024 Miscellaneous Notes Left message regarding reminder and instructions for stress test tomorrow. This included where to check in, length of test and no caffeine for 12 hours prior to test. documented in this encounter [facility] 07-14-2024 Telephone encounter Note Prescriptions were last refilled on 10/2023 [facility] 07-14-2024 Miscellaneous Notes Prescriptions were last refilled on 10/2023 documented in this encounter [facility] 07-13-2024 Note SARS-COV-2 (AGENT OF COVID-19) RNA: Not detected INFLUENZA A RNA: Not detected INFLUENZA B RNA: Not detected RESPIRATORY SYNCYTIAL VIRUS (RSV) RNA: Not detected [facility] Comment on above: Performed By: #### 9 [id number] ####[facility] LABCLIA [id number] [place] [address] [place] 07-13-2024 Note HNO ID: [id number] Author: DESIRE LANIER APRN.SUPERVISOR [employer] Service: ? Author Type: Nurse Practitioner Type: Progress Notes Filed: 07/18/2024 08:32 Note Text: CHIEF COMPLAINT: Lakeisha is a 54-year-old female presenting with acute onset of allergic symptoms, nausea, and emesis, accompanied by multiple complaints including chest pain, dyspnea, and palpitations. I reviewed past medical, surgical, social, and family histories today and updated chart. Allergies, chronic medications, and supplements were also reviewed. Recording using [employer] software for draft documentation of the visit was discussed with the patient/authorized insurance verification representative; all questions welcomed and answered. Patient/authorized insurance verification representative agreed to proceed Allergic Symptoms: - Onset of symptoms approximately one week ago. - Reports nasal drainage, sneezing, coughing, and otalgia. - Denies current use of allergy medications. Nausea and Emesis: - Onset of symptoms approximately one week ago. - Emesis occurring nightly around midnight. - Denies known etiology. Chest Pain, Dyspnea, and Palpitations: - Reports frequent chest pain and dyspnea, particularly nocturnally. - Experiences palpitations. - Recent syncopal episode at work approximately two weeks ago, resulting in hospitalization at [facility]. - Family history of cardiac issues in father Edema: - Reports edema in the right foot, described as a lot of water in it. - Denies similar symptoms in the left foot. Weight Gain: - Noted weight gain since last visit in July. - Diet primarily consists of [employer] meals due to fixed income. - Engages in regular physical activity, including walking and standing at work. Vertigo: - History of vertigo, questioning if symptoms have recurred. PAST MEDICAL HISTORY Diagnosis Date Allergic rhinitis, cause unspecified Depression 09/26/2010 Diabetes mellitus (HCC) Morbid obesity (HCC) 07/24/2011 Other combinations of endocrine dysfunction Sprain of neck Unspecified asthma(493.90) PAST SURGICAL HISTORY Procedure Laterality Date ENDOMETRIAL BIOPSY 11/17/2023 HYSTEROSCOPY, DIAGNOSTIC (SEPARATE 12/03/2023 DANIA, Myomectomy LAPAROSCOPIC APPENDECTOMY 09/20/2009 LAPS SURG CHOLECYSTECTOMY W/CHOLANGIOGRAPHY IOC - non draining LIG/TRNSXJ FLP TUBE ABDL/VAG APPR UNI/BI Tubal ligation TONSILLECTOMY PRIMARY/SECONDARY Tonsillectomy Social History Tobacco Use Smoking status: Never Smokeless tobacco: Never Tobacco comments: VAPE Vaping Use Vaping status: Some Days Substances: CBD Substance Use Topics Alcohol use: Not Currently Drug use: Never ALLERGIES Allergen Reactions Penicillins Family History Problem Relation Age of Onset Cancer Mother breast cancer Diabetes Mother COPD Father Coronary Artery Disease Father of [place] Breast Cancer Sister Heart Brother No Known Problems Maternal Grandmother No Known Problems Maternal Grandfather No Known Problems Paternal Grandmother No Known Problems Paternal Grandfather No Known Problems Daughter No Known Problems Daughter No Known Problems Daughter No Known Problems Daughter Adopted No Known Problems Son No Known Problems Son Current Outpatient Medications Medication Sig Dispense Refill glipiZIDE (GLUCOTROL XL) 5 mg 24 hr tablet Take 1 tablet by mouth once daily. 90 tablet 1 simvastatin (ZOCOR) 80 mg tablet Take 1 tablet by mouth once daily. 90 tablet 1 EPINEPHrine (EPIPEN) 0.3 mg/0.3 mL auto-injector DIRECTED as needed for anaphylaxis TRUE METRIX GLUCOSE TEST STRIP test strip USE TO TEST BLOOD GLUCOSE 3 TIMES DAILY. oxybutynin XL (DITROPAN XL) 5 mg 24 hr tablet once daily. Vedgonju-Ow-Uwo-Fe-FA tab Take 1 tablet by mouth once daily. 30 tablet 1 ferrous sulfate (SLOW FE) 137 mg (45 mg iron) TbER Take 1 tablet by mouth once daily. 30 tablet 3 albuterol HFA (PROVENTIL HFA, VENTOLIN HFA) 90 mcg/actuation inhaler Inhale 2 Puffs as instructed every 4 hours as needed for wheezing/shortness of breath. 8 g 0 omeprazole (PRILOSEC) 40 mg capsule Take by mouth. ARIPiprazole (ABILIFY) 5 mg tablet Take 1 tablet by mouth once daily. For 30 days 30 tablet 0 FLUoxetine (PROZAC) 20 mg capsule Take 1 capsule by mouth once daily. 30 capsule 12 losartan (COZAAR) 25 mg tablet Take 1 tablet by mouth once daily. For 30 days 30 tablet 2 metFORMIN (GLUCOPHAGE) 500 mg tablet Take 500 mg by mouth twice daily. Ipratropium (ATROVENT) 17 mcg/actuation inhaler Inhale 2 Puffs as instructed every 6 hours. 1 Inhaler 11 fluticasone (FLONASE) 50 mcg/actuation nasal spray Use 1 [place] in each nostril once daily. 1 Bottle 11 mometasone-formoterol (DULERA) 100-5 mcg/actuation inhaler Inhale 2 Puffs as instructed twice daily. 1 Inhaler 11 albuterol HFA (PROAIR HFA) 90 mcg/actuation inhaler Inhale 2 Puffs as instructed every 4 hours as needed for Wheezing/Shortness of Breath. 1 Inhaler 2 acetaminophen (T (more content not included)... [facility] 07-13-2024 History of Presen t illness Narrative CHIEF COMPLAINT: Lakeisha is a 54-year-old female presenting with acute onset of allergic symptoms, nausea, and emesis, accompanied by multiple complaints including chest pain, dyspnea, and palpitations. I reviewed past medical, surgical, social, and family histories today and updated chart. Allergies, chronic medications, and supplements were also reviewed. Recording using [employer] software for draft documentation of the visit was discussed with the patient/authorized insurance verification representative; all questions welcomed and answered. Patient/authorized insurance verification representative agreed to proceed Allergic Symptoms: - Onset of symptoms approximately one week ago. - Reports nasal drainage, sneezing, coughing, and otalgia. - Denies current use of allergy medications. Nausea and Emesis: - Onset of symptoms approximately one week ago. - Emesis occurring nightly around midnight. - Denies known etiology. Chest Pain, Dyspnea, and Palpitations: - Reports frequent chest pain and dyspnea, particularly nocturnally. - Experiences palpitations. - Recent syncopal episode at work approximately two weeks ago, resulting in hospitalization at [facility]. - Family history of cardiac issues in father Edema: - Reports edema in the right foot, described as a lot of water in it. - Denies similar symptoms in the left foot. Weight Gain: - Noted weight gain since last visit in July. - Diet primarily consists of [employer] meals due to fixed income. - Engages in regular physical activity, including walking and standing at work. Vertigo: - History of vertigo, questioning if symptoms have recurred. PAST MEDICAL HISTORY Diagnosis Date Allergic rhinitis, cause unspecified Depression 09/26/2010 Diabetes mellitus (HCC) Morbid obesity (HCC) 07/24/2011 Other combinations of endocrine dysfunction Sprain of neck Unspecified asthma(493.90) PAST SURGICAL HISTORY Procedure Laterality Date ENDOMETRIAL BIOPSY 11/17/2023 HYSTEROSCOPY, DIAGNOSTIC (SEPARATE 12/03/2023 D&C, Myomectomy LAPAROSCOPIC APPENDECTOMY 09/20/2009 LAPS SURG CHOLECYSTECTOMY W/CHOLANGIOGRAPHY IOC - non draining LIG/TRNSXJ FLP TUBE ABDL/VAG APPR UNI/BI Tubal ligation TONSILLECTOMY PRIMARY/SECONDARY <AGE 12 Tonsillectomy Social History Tobacco Use Smoking status: Never Smokeless tobacco: Never Tobacco comments: VAPE Vaping Use Vaping status: Some Days Substances: CBD Substance Use Topics Alcohol use: Not Currently Drug use: Never ALLERGIES Allergen Reactions Penicillins Family History Problem Relation Age of Onset Cancer Mother breast cancer Diabetes Mother COPD Father Coronary Artery Disease Father of [place] Breast Cancer Sister Heart Brother No Known Problems Maternal Grandmother No Known Problems Maternal Grandfather No Known Problems Paternal Grandmother No Known Problems Paternal Grandfather No Known Problems Daughter No Known Problems Daughter No Known Problems Daughter No Known Problems Daughter Adopted No Known Problems Son No Known Problems Son Current Outpatient Medications Medication Sig Dispense Refill glipiZIDE (GLUCOTROL XL) 5 mg 24 hr tablet Take 1 tablet by mouth once daily. 90 tablet 1 simvastatin (ZOCOR) 80 mg tablet Take 1 tablet by mouth once daily. 90 tablet 1 EPINEPHrine (EPIPEN) 0.3 mg/0.3 mL auto-injector DIRECTED as needed for anaphylaxis TRUE METRIX GLUCOSE TEST STRIP test strip USE TO TEST BLOOD GLUCOSE 3 TIMES DAILY. oxybutynin XL (DITROPAN XL) 5 mg 24 hr tablet once daily. Mlhvcxvt-Ht-Ztx-Fe-FA tab Take 1 tablet by mouth once daily. 30 tablet 1 ferrous sulfate (SLOW FE) 137 mg (45 mg iron) TbER Take 1 tablet by mouth once daily. 30 tablet 3 albuterol HFA (PROVENTIL HFA, VENTOLIN HFA) 90 mcg/actuation inhaler Inhale 2 Puffs as instructed every 4 hours as needed for wheezing/shortness of breath. 8 g 0 omeprazole (PRILOSEC) 40 mg capsule Take by mouth. ARIPiprazole (ABILIFY) 5 mg tablet Take 1 tablet by mouth once daily. For 30 days 30 tablet 0 FLUoxetine (PROZAC) 20 mg capsule Take 1 capsule by mouth once daily. 30 capsule 12 losartan (COZAAR) 25 mg tablet Take 1 tablet by mouth once daily. For 30 days 30 tablet 2 metFORMIN (GLUCOPHAGE) 500 mg tablet Take 500 mg by mouth twice daily. Ipratropium (ATROVENT) 17 mcg/actuation inhaler Inhale 2 Puffs as instructed every 6 hours. 1 Inhaler 11 fluticasone (FLONASE) 50 mcg/actuation nasal spray Use 1 [place] in each nostril once daily. 1 Bottle 11 mometasone-formoterol (DULERA) 100-5 mcg/actuation inhaler Inhale 2 Puffs as instructed twice daily. 1 Inhaler 11 albuterol HFA (PROAIR HFA) 90 mcg/actuation inhaler Inhale 2 Puffs as instructed every 4 hours as needed for Wheezing/Shortness of Breath. 1 Inhaler 2 acetaminophen (TYLENOL EXTRA STRENGTH) 500 mg tablet Take 1 tablet by mouth every 8 hours as needed for pain. 90 tablet 1 ibuprofen (MOTRIN) 600 mg tablet Take 1 tablet by mouth every 6 hours as needed for pain. FOR PAIN. 30 tablet 0 methylPREDNISolone (MEDROL, KEVIN,) 4 mg Dose-Pack As Instructed per package 21 tablet 0 loratadine (CLARITIN) 10 mg tablet Take 1 tablet by mouth once daily. 30 tablet 2 benzonatate (TESSALON PERLE) 100 mg capsule Take one to two tablets by mouth up to three times a day as needed for cough. Do not take more than six in 24 hours 30 capsule 0 fluticasone (FLONASE) 50 mcg/actuation nasal spray Use 2 Sprays in each nostril once daily. Rinse mouth after use. (Patient not taking: Reported on 07/13/2024) 1 Each 0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 1970 53 From: Linwood Vega MD PCP: CHRISSY Alcantara Status:ADM I N Location: [place] [address] Operative Report (Standard) Operative Information Date of Procedure: 05/31/24 Pre-Operative Diagnosis: Right ureteral calculi Post-Operative Diagnosis: The same Surgery/Procedure Performed: Cystoscopy right stent placement right ESWL appliance repair technician: No Type of Anesthesia: General RN Documented Start/Stop Times: Operation Date: 05/31/24 16:00 Case Time Into Pre-Op 05/31/24 13:26 Out of Pre-Op 05/31/24 14:24 Anesthesia Start 05/31/24 14:30 Into Room 05/31/24 14:30 Procedure Start 05/31/24 14:38 Procedure Start Time: 14:38 Procedure Stop Time: 15:43 Select all DRAINS/GRAFTS/IMPLANTS that apply: Drains Drain details: stent right Estimated Blood Loss: 0 Specimen collected: No Description of surgery: Patient presents to the hospital for treatment of a kidney stone with shockwave lithotripsy. In thepreoperative area and x-ray was done to confirm the location of the stone. The x-ray was reviewed and the stone location was reviewed. In the preoperative setting I spoke with the patient regarding the treatment of the stone how the treatment would be conducted and the expectationsafter surgery. The patient understands there is a risk of bleeding and infection. Also discussed the very rare risk of hematoma or damage to the kidney. We also discussed the risk that the shockwave machine will fail to break the stone adequately and that the patient may need other surgical procedures. I also discussed the possibility that the patient may need a stent after the procedure. After reviewing the procedure with the patient, the patient is signed the consent form all the patient's questions were addressed and wastaken back to the operating room for treatment of a kidney stone. Patient was taken back to the operating room, the patient was identified by the nursing staff, I identified the side of the treatment and the patient side of treatment had been marked by my initials.The patient underwent general anesthetic and was placed supine on the lithotripter table. I then used fluoroscopy to identify the stone on the right side. The urethra and genitals were prepped and draped in usual sterile fashion. Using a 21 Malagasy rigid cystourethroscope the entire length of the urethra was normal then went into thebladder. Identified the trigone the left and right ureteral orifice. I then cannulated the right ureteral orifice and advanced a wire up into the kidney. Nasir backloaded a 5 Malagasy open ended catheter over the wire and injected contrast to delineate the anatomy. After the retrograde was performed I then used fluoroscopic images and guidance to advanced a wire upinto the kidney and over the 0.038 glidewire I advanced a 6 Malagasy by 26 cm double pigtail stent. It hen pulled the 0.038 Glidewire off and the stent coiled in the kidney bladder good position. The bladder was then drained. We confirmed the position of the stent by fluoroscopy. I then positioned thepatient under the lithotripter and I used triangulation technique to identify the location of the stone and then I made sure that the stone was engaged in the F2 focal point of F2 Donier lithoprior machine. Once the patient was positioned appropriately and the stonewas identified and placed in the F2 focal point of the lithotripter machine I then proceeded with shockwave lithotripsy. In the beginning the shockwave was delivered at a rate of 90 shocks per minute, anesthesia monitored the EKG for any ectopy. The power was slowly increased to 5 kV and subsequently at the 7 kV. I then proceeded with the treatment with shock wave therapy and around during the treatment to make sure the stone stayed in the F2 focal point during the entire treatment and after 3000 shockwaves were delivered to the stone underfluoroscopic guidance the treatment was completed. The patient was given instructions to call the office to make an a follow-up appointment with an x- rayto evaluate the success of the treatment, patient understands that its possible the stones may need another procedure. At this point the patient's anesthetic was reversed patient was extubated and taken back to the PACU in stable condition. Surgical Findings: stone treated in proximal ureter Complications Complications: No Admit VTE Documentation VTE Present on Admission: No VTE Mechan Device Prophylaxis: SCD's VTE Pharm Prophylaxis ordered?: No 05/31/24 8615 Cosigner Signature (if applicable): CC: CHRISSY Lanier; Dr. Linwood Vega MD~ Signed [facility]04-02-2025 Consult note [facility] Medical Records Department [address] [place] [address] Pre-Anesthesia Evaluation 05/31/24 1354 MR#: [id number] Acct: [id number] Name: LAKEISHA TOPETE Rep #:[id number] : 1970 53 From: Juliocesar Joe MD PCP: CHRISSY Alcantara Status:ADM I N Y Race: C Location: ID3 [id number] ASA Classification* ASA Classification ASA Classification: 3 Assessment & Plan Anesthesia* Anesthesia Assessment Anesthesia Assessment: Discussed sedation and/or anesthesia options, risks, benefits, and alternatives with patient/parents/legal guardian/POA. Questions invited. The patient/parents/legal guardian/POA seems to understand and agrees to proceedwith anesthesia plan. Reviewed the physical assessment, medical history, allergy history and patient home medications list prior to surgery/procedure/anesthetic and documented any changes. Performed airway and anesthesia risk assessments. Anesthesia Type Anesthesia Type: General Anesthesia Focused Assessment* Temperature: 96.8 F Pulse Rate: 87 Blood Pressure: 144/88 Respiratory Rate: 18 Pulse Ox: 100 Airway Assessment Mouth opens: >3 cm Mallampati Score: II Focused Labs Anesthesia Preop lab: CBC WBC 15.4 K/mm3 (4.4-11.0) H 05/31/24 05:10 5 RBC 3.95 M/mm3 (4.2-5.4) L 05/31/24 05:10 05/31/24 Hgb 9.3 g/dL (12.0-15.0) L 05/31/24 05:10 05/31/24 Hct 30.7 % (37-47) L 05/31/24 05:10 05/31/24 Plt Count 291 K/mm3 (150-450) 05/31/24 05:10 05/31/24 CHEMISTRY Potassium 3.1 mmol/L (3.3-5.1) L 05/31/24 05:10 05/31/24 Sodium 138 mmol/L (133-145) 05/31/24 05:10 05/31/24 BUN 14 mg/dL (4-19) 05/31/24 05:10 05/31/24 Creatinine 0.82 mg/dL (0.70-1.20) 05/31/24 05:10 05/31/24 Glucose 76 mg/dL (70-99) 05/31/24 05:10 05/31/24 POC Glucose 148 mg/dL (74-106) H 12/03/23 05:10 12/03/23 COAG PT 14.5 SECONDS (11.7-14.9) 12/02/23 13:45 HCG, Quant < 1 mIU/mL (<9 non-preg) 03/12/12 12:46 3 Urine Test Negative Negative 05/12/24 02:38 05/12/24 Pre-Assessment Diagnosis/Proposed Procedure Planned Operative Procedure(s): Right ESWL, possible stent placement Anesthesia History Anesthesia History - police detective: Anesthesia History - police detective Hx Hospitalization Yes: IN [facility] SEIZURE 11/05/22 10:06 Any Problems With Anesthesia No 05/30/24 22:40 Cholinesterase deficiency No 05/30/24 22:40 You/Your Family Experience No 05/30/24 22:40 fever (hyperthermia) with Relationship Recent Exposure to Contagious No 05/30/24 22:40 Disease Does patient have nerve No 05/30/24 22:40 stimulator Patient instructed to have No 05/30/24 22:40 device shut off --Does patient have Pacemaker No 05/31/24 13:09 or ICD? When Was Last Pacemaker Check QUESTION #4 FULL TEXT: You/Your Family Experience fever (hyperthermia) with Anesthesia Last Oral Intake Last Oral intake: Last Oral Intake NPO since 00:00 05/31/24 13:09 Meds taken in AM with sips of Yes 05/31/24 13:09 water? Meds patient instructed to see 05/31/24 13:09 take am of surgery PONV PONV - police detective: PONV - police detective Female HX of Motion Sickness HX of N/V After Surgery Non-Smoker Duration of Surgery greater than 60 minutes Number of Risk Factors PONV Score Height & Weight Height & Weight: Anesthesia: Height & Weight Height 4 ft 9 in 05/31/24 13:09 Weight: 89.675 kg 05/31/24 13:09 Body Mass Index (BMI) 42.7 05/31/24 13:09 Respiratory Assessment Respiratory Assessment - police detective: Respiratory Tract Infection Hx - police detective Hx Respiratory Tract Infection Yes: cold 05/30/24 22:40 STOP Sleep Apnea STOP Sleep Apnea - police detective: STOP Sleep Apnea - police detective Hx Hypertension Yes 05/30/24 19:55 Hx Sleep Apnea No 05/30/24 19:55 CPAP BIPAP Do you snore loudly (louder No 05/30/24 19:55 than talking or can be heard Do you often feel tired/ Yes 05/30/24 19:55 fatigued/ sleepy during daytime? Has anyone observed you stop Yes 05/30/24 19:55 breathing during sleep? STOP Results Positive 05/30/24 19:55 QUESTION #5 FULL TEXT : Do you snore loudly (louder than talking or can be heard through closeddoors)? Tobacco Use History Tobacco Use History - police detective: Tobacco Use History - police detective Tobacco Use Non-smoker 11/05/22 10:06 Smoking Status Current some day smoker 05/30/24 19:55 Hx Tobacco Use No 05/30/24 19:55 Years Smoking Packs Smoked per Day Smoking Cessation Date was within the last 15 years Hx Smoking Cessation Date Hx Smoking Cessation Counseling Hematologic Medial History Hematologic Hx - police detective: Hematologic Medical Hx - cook frozen dessert Hx of Blood Transfusion Yes 05/30/24 19:55 Hx of Transfusion in last 3 Yes 05/30/24 19:55 Months Date of Last Transfusion (if 03/2505/30/24 19:55 within last 3 months) Ever experience any problems No 05/30/24 19:55 with transfusion(s)? Specify any problems Hx of Preganancy in last 3 No 05/30/24 19:55 Months Nurse Filling Out Transfusion FSTEINER 05/30/24 19:55 & Questions: Date: 05/30/24 05/30/24 19:55 Time: 19:57 05/30/24 19:55 Patient unable to answer at this time (ie. confused, unrespo /Reproduction History /Reproductive History - police detective: /Reproductive Hx- police detective Hx Now No 05/30/24 22:40 Gestational Age (in weeks): EDC: Hx Hx Para Hx Section SAB No 05/30/24 22:40 Active Medications Active Medications: Current Medications Generic Name Dose Route Start Last Admin Trade Name Freq PRN Reason Stop Dose Admin Acetaminophen 500 mg 05/30/24 20:53 Acetaminophen 500 Mg Tablet PO Q6H PRN pain Al Hydroxide/Mg Hydroxide 30 ml 05/30/24 20:54 Mag Hydrox/Al Hydrox/Simeth 30 Ml Udc PO Q4H PRN PRN HEARTBURN Albuterol Sulfate 2.5 mg 05/30/24 21:30 Albuterol 2.5 Mg/3 Ml Vial.Neb. INHALATION Q4H PRN Wheezing Albuterol Sulfate 2.5 mg 05/30/24 22:00 05/31/24 12:44 Albuterol 2.5 Mg/3 Ml Vial.Neb. INHALATION 2.5 mg Q6HWA.RT ABEL Administration Aripiprazole 5 mg 05/31/24 10:00 05/31/24 08:16 Aripiprazole 5 Mg Tablet PO 5 mg DAILY ABEL Administration Protocol Atorvastatin Calcium 40 mg 05/30/24 22:00 05/30/24 22:11 Atorvastatin Calcium 40 Mg Tablet PO 40 mg QHS ABEL Administration Budesonide 0.5 mg 05/30/24 22:00 05/31/24 07:54 Budesonide Respules 0.5 Mg/2 Ml Ampul.Neb. INHALATION 0.5 mg Q12H.RT ABEL Administration Docusate Sodium 200 mg 05/30/24 22:00 05/31/24 08:15 Docusate Sodium 100 Mg Capsule PO Not Given BID ABEL Fluoxetine HCl 20 mg 05/31/24 10:00 05/31/24 08:15 Fluoxetine 20 Mg Capsule PO 20 mg DAILY ABEL Administration Fluticasone Propionate 2 spray 05/31/24 10:00 05/31/24 08:15 Fluticasone 0.05% 1 [place] Nasal.Sry NASAL 2 spray DAILY ABEL Administration Glipizide 5 mg 05/31/24 08:00 05/31/24 08:09 Glipizide Xl 5 Mg Tablet PO Not Given DAILYCM ABEL Sodium Chloride 1,000 mls @ 125 mls/hr 05/30/24 20:55 05/31/24 13:12 IV 05/31/24 20:54 0 mls/hr .Q8H ABEL Infusion Ketorolac Tromethamine 15 mg 05/30/24 20:54 05/31/24 08:11 Ketorolac 15 Mg/Ml Vial IV 06/01/24 20:56 15 mg Q6H PRN PRN Administration P Losartan Potassium 25 mg 05/31/24 10:00 05/31/24 08:14 Losartan Potassium 25 Mg Tablet PO 25 mg DAILY ABEL Administration Protocol Morphine Sulfate 2 mg 05/30/24 20:54 Morphine 2 Mg/Ml Syringe IV Q2H PRN PRN Pain Score 6-10 Ondansetron HCl 4 mg 05/31/24 09:27 05/31/24 09:54 Ondansetron 4 Mg/2 Ml Vial IV 4 mg Q6H PRN PRN Administration NAUSEA/VOMITING Oxycodone HCl 5 - 10 mg 05/30/24 20:54 Oxycodone 5 Mg Tablet PO Q6H PRN PRN Pain Score 4-10 PFSH Medical History Bipolar disorder Arthritis Smoker Restless legs Anxiety Depression Sleep apnea Irregular heart beat Seizures TIA (transient ischemic attack) Hyperlipidemia Bipolar 1 disorder Hypertension Diabetes Asthma Home Medications ?Medication ?Instructions ?Recorded ?Last Taken ?Type fluoxetine 20 mg capsule 20 mg PO DAILY depression 05/29/24 History metformin 500 mg tablet 500 mg PO BID #20 tabs 05/2505/29/24 Rx budesonide-formoterol HFA 80 2 puff inhalation BID #10 .2 grams 01/04/23 05/29/24 Rx mcg-4.5 mcg/actuation aerosol inhaler (Symbicort) ibuprofen 800 mg tablet 800 mg PO TID PRN pain #20 t abs 09/07/23 12/01/23 Rx epinephrine 0.3 mg/0.3 mL 0.3 mg IM UD PRN anaphylaxis 12/01/23 Unknown History injection, auto-injector glipizide 5 mg tablet, extended 5 mg PO DAILY 12/01/23 05/29/24 History release 24 hr acetaminophen 500 mg tablet 500 mg PO Q6H PRN pain 05/2212/01/23 History albuterol sulfate 90 mcg/actuation 1 - 2 puff inhalati on Q4H PRN 12/02/23 Unknown History aerosol inhaler (Ventolin HFA) Wheezing aripiprazole 5 mg tablet 5 mg PO DAILY 12/02/2305/29 History losartan 25 mg tablet 25 mg PO DAILY 12/02/2305/01 History oxybutynin chloride 5 mg 5 mg PO DAILY 12/02/2305/29 History tablet,extended release 24 hr simvastatin 80 mg tablet 80 mg PO QHS 12/02/23 History fluticasone propionate 50 2 spray intranasal DAILY 03/25 Unknown History mcg/actuation nasal spray,suspension Allergy/AdvReac Type Severity Reaction Status Date / Time Penicillins AdvReac Vomiting Verified 05/30/24 16:02 Surgical History S/P dilatation and curettage Hx of cholecystectomy Hx of breast surgery Hx of tubal ligation Social History Smoking Status: Current some day smoker tobacco type: e-cigarettes and smokeless tobacco Review of Systems (Anesthesia) ROS Narrative System reviewed and no additional complaints, except as documented. 05/31/24 1355 > Date _ Juliocesar Joe MD Cosigner Signature: Date CC: ~ Signed [facility]04-02-2025 Evaluation note* Diagnosis Onset Date Resolution Status Admit Date Calculus of proximal right ureter acute May 31, 2024 11:41am Leukocytosis acute May 31, 025 11:41am [facility] Work Phone: 1(797) 771-291504-02-2025 Discharge summary Author Rob Perdomo [facility] Note Date/Time May 31, 2024 12:1 6am [facility] Medical Records Department [address] [place] [address] Emergency Department Summary 05/30/24 MR#: [id number] Acct: [id number] Name: LAKEISHA TOPETE Rep #:[id number] : 1970 53 From: Rob Manriquez PCP: CHRISSY Alcantara Status:ADM I NO Location: ID3 [id number] HPI History of Present Illness Chief Complaint: Flank Pain Informant: patient Onset/Context/Timing Onset: Yesterday Context: Sudden Onset Timing: Continuous Quality: Stabbing Location: Right flank and right abdomen Worsened by: Nothing Relieved by: Nothing Narrative Narrative: Patient presents with right-sided flank and abdominal pain that became worse yesterday. Patient states she has had similar symptoms in the past with prior kidney stones. Patient describes her pain as stabbing. Patient states it is constant. Patient states it is over the right flank and right abdomen. Patientstates nothing makes it better nothing makes it worse. Patient admits to some nausea and vomiting. Patient states she is vomiting up some dark contents. Patient also admits to a cough. Patient states she is coughing up some dark contents. Patient admits to some dysuria but denies any hematuria or frequency. Patient states her pain does radiate into her back. Patient admits to some subjective chills but denies any fevers. [facility] Medical History Restless legs Anxiety Depression Sleep apnea Irregular heart beat Seizures TIA (transient ischemic attack) Hyperlipidemia Bipolar 1 disorder Hypertension Diabetes Asthma Home Medications ?Medication ?Instructions ?Recorded ?Last Taken ?Type fluoxetine 20 mg capsule 20 mg PO DAILY depression 12/01/23 History metformin 500 mg tablet 500 mg PO BID #20 tabs 05/2512/01/23 Rx budesonide-formoterol HFA 80 2 puff inhalation BID #10 .2 grams 01/04/23 12/01/23 Rx mcg-4.5 mcg/actuation aerosol inhaler (Symbicort) ibuprofen 800 mg tablet 800 mg PO TID PRN pain #20 t abs 09/07/23 12/01/23 Rx epinephrine 0.3 mg/0.3 mL 0.3 mg IM UD PRN anaphylaxis 12/01/23 Unknown History injection, auto-injector glipizide 5 mg tablet, extended 5 mg PO DAILY 12/01/23 12/01/23 History release 24 hr norethindrone acetate 5 mg tablet 5 mg PO BID PRN vag bleeding 12/01/23 12/02/23 History acetaminophen 500 mg tablet 500 mg PO Q6H PRN pain 05/2212/01/23 History albuterol sulfate 90 mcg/actuation 1 - 2 puff inhalati on Q4H PRN 12/02/23 Unknown History aerosol inhaler (Ventolin HFA) Wheezing aripiprazole 5 mg tablet 5 mg PO DAILY 12/02/2311/30 History losartan 25 mg tablet 25 mg PO DAILY 12/02/2304/24 History oxybutynin chloride 5 mg 5 mg PO DAILY 12/02/2311/30 History tablet,extended release 24 hr simvastatin 80 mg tablet 80 mg PO QHS 12/02/23 History cephalexin 500 mg capsule 500 mg PO TID 7 days #21 cap s 05/12/24 Unknown Rx ketorolac 10 mg tablet 10 mg PO 4X/DAY PRN pain 5 d ays 05/12/24 Unknown Rx #20 tabs ondansetron 4 mg disintegrating 4 mg PO TID PRN nausea and 05/12/24 Unknown Rx tablet vomiting #21 tabs oxycodone-acetaminophen 5 mg-325 1 tab PO Q6H PRN pain 3 days #12 05/12/24 Unknown Rx mg tablet (Percocet) tabs tamsulosin 0.4 mg capsule (Flomax) 0.4 mg PO DAILY 14 days #14 caps 05/12/24 Unknown Rx Allergy/AdvReac Type Severity Reaction Status Date / Time Penicillins AdvReac Vomiting Verified 05/30/24 16:02 Surgical History S/P dilatation and curettage Hx of cholecystectomy Hx of breast surgery Hx of tubal ligation Social History Smoking Status: Current some day smoker tobacco type: e-cigarettes ROS ROS ED Constitutional Constitutional ED: Reports chills and subjective; Denies fever(s) Eyes Eyes: Denies blurry vision or change in vision ENT ENT ED: Denies rhinorrhea or sore throat Cardiovascular Cardiovascular: Denies chest pain or palpitations Respiratory/Chest Respiratory/Chest: Reports cough; Denies dyspnea Gastrointestinal Gastrointestinal: Reports abdominal pain, nausea and vomiting; Denies diarrhea Genitourinary Genitourinary ED: Reports dysuria; Denies hematuria Musculoskeletal Musculoskeletal: Reports back pain; Denies neck pain Integumentary Denies abscess or rash Neurologic Neurologic: Denies headache(s) or weakness Allergic/Immunologic Allergic/Immunologic ED: Denies mouth swelling or urticaria EXAM Physical Exam Const Vital Signs: 05/30/24 16:02 05/30/24 18:01 Temperature 98.5 F 97.9 F Temperature Source Oral Oral Pulse Rate 73 82 Respiratory Rate 16 16 Blood Pressure 121/70 H 133/67 H Blood Pressure Mean 87 89 Pulse Ox 98 96 Oxygen Delivery Method Room Air Room Air Positive well nourished and well developed General Appearance ED: well developed and NAD HEENT Reports moist mucous membranes Neck supple and no JVD Resp normal respiratory effort and clear to auscultation bilaterally Cardio regular rate and regular rhythm GI non-distended Palpation: soft and tender RLQ and RUQ; Negative for guarding or rebound tenderness present Back/Spine General Back: CVA tenderness right Neuro oriented x3, CN's II-XII intact bilaterally and no sensory deficits noted Sensorium / Orientation: alert Motor Exam: strength 5/5 throughout Psych mental status grossly normal MDM MDM MDM Narrative Medical decision making narrative: Differential diagnosis includes cholecystitis, cholelithiasis, ureteral lithiasis, pyelonephritis, pancreatitis, colitis, bowel obstruction, perforation, and urinary tract infection. CT scan of the abdomen and pelvis will be obtained to assess for ureteral calculus, pyelonephritis, bowel obstruction, perforation. CBC will be obtained to assess for leukocytosis and anemia. Comprehensive metabolic profile will be obtained to assess for hepatic function,renal function, and electrolyte abnormality. Lipase will be obtained to assess for pancreatitis. Urinalysis will be obtained to assess for urinary tract infection and hematuria. Lab Data Attestation: I reviewed the patient's lab results. Lab results narrative: CBC was reviewed. There is a leukocytosis of 15.9. Hemoglobin was 11.0 hematocrit was 35.4. Platelets were normal. Comprehensive metabolic profile was reviewed. Potassium was slightly low at 3.3. Creatinine was normal at 1.01. BUN was normal at 12. Lipase was reviewed and was normal at 20. Urinalysis wasreviewed. Leukocyte esterase was 500 with greater than 100 white blood cells and 3+ bacteria. Labs: Laboratory Results - last 24 hr 05/30/24 05/30/24 16:03 16:29 WBC 15.9 H RBC 4.65 Hgb 11.0 L Hct 35.4 L MCV 76.1 L MCH 23.7 L MCHC 31.1 L RDW Std Deviation 44.7 H RDW Coeff of Yohannes 16.5 H Plt Count 315 MPV 10.1 Immature Gran % (Auto) 0.900 Neut % (Auto) 69.6 Lymph % (Auto) 16.0 L [place] % (Auto) 12.2 H Eos % (Auto) 0.9 Baso % (Auto) 0.4 Absolute Neuts (auto) 11.1 H Absolute Lymphs (auto) 2.54 Nucleated RBC % 0 Differential Comment SCANNED Diff Path Review June Sodium 140 Potassium 3.3 Chloride 103 Carbon Dioxide 23.6 Anion Gap 14 BUN 12 Creatinine 1.01 Estim Creat Clear Calc 66.64 Est GFR (MDRD) Non-Af 67 BUN/Creatinine Ratio 12.0 Glucose 102 H Calcium 9.2 Total Bilirubin 0.53 AST 18 ALT 10 Alkaline Phosphatase 93 Total Protein 7.8 Albumin 3.9 Globulin 3.9 Albumin/Globulin Ratio 1.0 Lipase 20 Urine Color Yellow Urine Clarity Cloudy Urine pH 6.0 Ur Specific [place] 1.020 Urine Protein 100 H Urine Glucose (UA) Normal Urine Ketones Negative Urine Occult Blood 150 H Urine Nitrite Negative Urine Bilirubin Negative Urine Urobilinogen 1 H Ur Leukocyte Esterase 500 H Urine RBC 10-25 SEEN Urine WBC >100 SEEN Ur Squamous Epith Cells 0-5 SEEN Urine Bacteria 3+ Urine Mucus 0 SEEN Radiography Diagnostic Testing: Clinical Impression(s) from Imaging Studies Abdomen/Pelvis CT 05/30/24 16:13 IMPRESSION: 1. Obstructing right ureteral stone at the UVJ measuring 8 mm with moderate hydroureteronephrosis. 2. Mild hepatomegaly with diffuse hepatic steatosis. 3. Stable cystic focus within the right ovary. Follow-up pelvic ultrasound in 6weeks is recommended for further evaluation. Reading Location: [facility] CT scan of the abdomen and pelvis was obtained. There is an obstructing right ureteral calculus at the UPJ measuring 8 mm with moderate hydronephrosis and hydroureter. There is no other acute abnormality noted. This was interpreted by the radiologist and was also independently reviewed by myself. Additional Tests and Interventions Additional Tests or Interventions: Urine culture was ordered. Treatment and Re-Evaluation :: Patient was given IV fluids, morphine, and Zofran. Patient is feeling better onreevaluation. Patient was advised of her findings. Patient was given a dose ofRocephin here. Case was discussed with Dr. Vega. He will admit the patient to his service. Patient understood and was agreeable with the plan. All questions were answered. Discharge Plan Dx/Rx/DC Orders Clinical Impression: Urinary tract infection, Leukocytosis, Calculus of proximal right ureter Disposition Disposition: Acute Care [facility] What to do if you have Problems For any increased pain, shortness of breath, bleeding, nausea or vomiting, chestpain, or any unexpected problems, contact your Primary Care Provider. Call [facility] ([phone]) or report to the closest Emergency Room. Call 911 if necessary. 05/31/24 0016 <Electronically signed by Rob Perdomo DO> Cosigner Signature (if applicable): CC: CHRISSY Lanier ~ Signed [facility] Work Phone: 1(804) 145-474504-02-2025 Discharge summary [facility] Medical Records Department [address] [place] [address] Emergency Department Summary 05/30/24 MR#: [id number] Acct: [id number] Name: LAKEISHA TOPETE Rep #:[id number] : 1970 53 From: Rob Manriquez PCP: CHRISSY Alcantara Status:ADM I NO Location: [facility]3 XQ281-7 HPI History of Present Illness Chief Complaint: Flank Pain Informant: patient Onset/Context/Timing Onset: Yesterday Context: Sudden Onset Timing: Continuous Quality: Stabbing Location: Right flank and right abdomen Worsened by: Nothing Relieved by: Nothing Narrative Narrative: Patient presents with right-sided flank and abdominal pain that became worse yesterday. Patient states she has had similar symptoms in the past with prior kidney stones. Patient describes her pain asstabbing. Patient states it is constant. Patient states it is over the right flank and right abdomen. Patientstates nothing makes it better nothing makes it worse. Patient admits to some nausea and vomiting. Patient states she is vomiting up some dark contents. Patient also admits to a cough. Patient states she is coughing up some dark contents. Patient admits to some dysuria but denies any hematuria or frequency. Patient states her pain does radiate into her back. Patient admits to some subjective chills but denies any fevers. [facility] Medical History Restless legs Anxiety Depression Sleep apnea Irregular heart beat Seizures TIA (transient ischemic attack) Hyperlipidemia Bipolar 1 disorder Hypertension Diabetes Asthma Home Medications ?Medication ?Instructions ?Recorded ?Last Taken ?Type fluoxetine 20 mg capsule 20 mg PO DAILY depression 12/01/23 History metformin 500 mg tablet 500 mg PO BID #20 tabs 05/2512/01/23 Rx budesonide-formoterol HFA 80 2 puff inhalation BID #10 .2 grams 01/04/23 12/01/23 Rx mcg-4.5 mcg/actuation aerosol inhaler (Symbicort) ibuprofen 800 mg tablet 800 mg PO TID PRN pain #20 t abs 09/07/23 12/01/23 Rx epinephrine 0.3 mg/0.3 mL 0.3 mg IM UD PRN anaphylaxis 12/01/23 Unknown History injection, auto-injector glipizide 5 mg tablet, extended 5 mg PO DAILY 12/01/23 12/01/23 History release 24 hr norethindrone acetate 5 mg tablet 5 mg PO BID PRN vag bleeding 12/01/23 12/02/23 History acetaminophen 500 mg tablet 500 mg PO Q6H PRN pain 05/2212/01/23 History albuterol sulfate 90 mcg/actuation 1 - 2 puff inhalati on Q4H PRN 12/02/23 Unknown History aerosol inhaler (Ventolin HFA) Wheezing aripiprazole 5 mg tablet 5 mg PO DAILY 12/02/2311/30 History losartan 25 mg tablet 25 mg PO DAILY 12/02/2304/24 History oxybutynin chloride 5 mg 5 mg PO DAILY 12/02/2311/30 History tablet,extended release 24 hr simvastatin 80 mg tablet 80 mg PO QHS 12/02/23 History cephalexin 500 mg capsule 500 mg PO TID 7 days #21 cap s 05/12/24 Unknown Rx ketorolac 10 mg tablet 10 mg PO 4X/DAY PRN pain 5 d ays 05/12/24 Unknown Rx #20 tabs ondansetron 4 mg disintegrating 4 mg PO TID PRN nausea and 05/12/24 Unknown Rx tablet vomiting #21 tabs oxycodone-acetaminophen 5 mg-325 1 tab PO Q6H PRN pain 3 days #12 05/12/24 Unknown Rx mg tablet (Percocet) tabs tamsulosin 0.4 mg capsule (Flomax) 0.4 mg PO DAILY 14 days #14 caps 05/12/24 Unknown Rx Allergy/AdvReac Type Severity Reaction Status Date / Time Penicillins AdvReac Vomiting Verified 05/30/24 16:02 Surgical History S/P dilatation and curettage Hx of cholecystectomy Hx of breast surgery Hx of tubal ligation Social History Smoking Status: Current some day smoker tobacco type: e-cigarettes ROS ROS ED Constitutional Constitutional ED: Reports chills and subjective; Denies fever(s) Eyes Eyes: Denies blurry vision or change in vision ENT ENT ED: Denies rhinorrhea or sore throat Cardiovascular Cardiovascular: Denies chest pain or palpitations Respiratory/Chest Respiratory/Chest: Reports cough; Denies dyspnea Gastrointestinal Gastrointestinal: Reports abdominal pain, nausea and vomiting; Denies diarrhea Genitourinary Genitourinary ED: Reports dysuria; Denies hematuria Musculoskeletal Musculoskeletal: Reports back pain; Denies neck pain Integumentary Denies abscess or rash Neurologic Neurologic: Denies headache(s) or weakness Allergic/Immunologic Allergic/Immunologic ED: Denies mouth swelling or urticaria EXAM Physical Exam Const Vital Signs: 05/30/24 16:02 05/30/24 18:01 Temperature 98.5 F 97.9 F Temperature Source Oral Oral Pulse Rate 73 82 Respiratory Rate 16 16 Blood Pressure 121/70 H 133/67 H Blood Pressure Mean 87 89 Pulse Ox 98 96 Oxygen Delivery Method Room Air Room Air Positive well nourished and well developed General Appearance ED: well developed and NAD HEENT Reports moist mucous membranes Neck supple and no JVD Resp normal respiratory effort and clear to auscultation bilaterally Cardio regular rate and regular rhythm GI non-distended Palpation: soft and tender RLQ and RUQ; Negative for guarding or rebound tenderness present Back/Spine General Back: CVA tenderness right Neuro oriented x3, CN's II-XII intact bilaterally and no sensory deficits noted Sensorium / Orientation: alert Motor Exam: strength 5/5 throughout Psych mental status grossly normal MDM MDM MDM Narrative Medical decision making narrative: Differential diagnosis includes cholecystitis, cholelithiasis, ureteral lithiasis, pyelonephritis, pancreatitis, colitis, bowel obstruction, perforation, and urinary tract infection. CT scan of the abdomen and pelvis will be obtained to assess for ureteral calculus, pyelonephritis, bowel obstruction, perforation. CBC will be obtained to assess for leukocytosis and anemia. Comprehensive metabolic profile will be obtained to assess for hepatic function,renal function, and electrolyte abnormality.Lipase will be obtained to assess for pancreatitis. Urinalysis will be obtained to assess for urinary tract infection and hematuria. Lab Data Attestation: I reviewed the patient's lab results. Lab results narrative: CBC was reviewed. There is a leukocytosis of 15.9. Hemoglobin was 11.0 hematocrit was 35.4. Platelets were normal. Comprehensive metabolic profile was reviewed. Potassium was slightly low at 3.3. Creatinine was normal at 1.01. BUN was normal at 12. Lipase was reviewed and was normal at 20. Urinalysis wasreviewed. Leukocyte esterase was 500 with greater than 100 white blood cells and 3+ bacteria. Labs: Laboratory Results - last 24 hr 05/30/24 05/30/24 16:03 16:29 WBC 15.9 H RBC 4.65 Hgb 11.0 L Hct 35.4 L MCV 76.1 L MCH 23.7 L MCHC 31.1 L RDW Std Deviation 44.7 H RDW Coeff of Yohannes 16.5 H Plt Count 315 MPV 10.1 Immature Gran % (Auto) 0.900 Neut % (Auto) 69.6 Lymph % (Auto) 16.0 L [place] % (Auto) 12.2 H Eos % (Auto) 0.9 Baso % (Auto) 0.4 Absolute Neuts (auto) 11.1 H Absolute Lymphs (auto) 2.54 Nucleated RBC % 0 Differential Comment SCANNED Diff Path Review May foll Sodium 140 Potassium 3.3 Chloride 103 Carbon Dioxide 23.6 Anion Gap 14 BUN 12 Creatinine 1.01 Estim Creat Clear Calc 66.64 Est GFR (MDRD) Non-Af 67 BUN/Creatinine Ratio 12.0 Glucose 102 H Calcium 9.2 Total Bilirubin 0.53 AST 18 ALT 10 Alkaline Phosphatase 93 Total Protein 7.8 Albumin 3.9 Globulin 3.9 Albumin/Globulin Ratio 1.0 Lipase 20 Urine Color Yellow Urine Clarity Cloudy Urine pH 6.0 Ur Specific [place] 1.020 Urine Protein 100 H Urine Glucose (UA) Normal Urine Ketones Negative Urine Occult Blood 150 H Urine Nitrite Negative Urine Bilirubin Negative Urine Urobilinogen 1 H Ur Leukocyte Esterase 500 H Urine RBC 10-25 SEEN Urine WBC >100 SEEN Ur Squamous Epith Cells 0-5 SEEN Urine Bacteria 3+ Urine Mucus 0 SEEN Radiography Diagnostic Testing: Clinical Impression(s) from Imaging Studies Abdomen/Pelvis CT 05/30/24 16:13 IMPRESSION: 1. Obstructing right ureteral stone at the UVJ measuring 8 mm with moderate hydroureteronephrosis. 2. Mild hepatomegaly with diffuse hepatic steatosis. 3. Stable cystic focus within the right ovary. Follow-up pelvic ultrasound in 6weeks is recommendedfor further evaluation. Reading Location: [facility] CT scan of the abdomen and pelvis was obtained. There is an obstructing right ureteral calculus at the UPJ measuring 8 mm with moderate hydronephrosis and hydroureter. There is no other acute abnormality noted. This was interpreted by the radiologist and was also independently reviewed by myself. Additional Tests and Interventions Additional Tests or Interventions: Urine culture was ordered. Treatment and Re-Evaluation :: Patient was given IV fluids, morphine, and Zofran. Patient is feeling better onreevaluation. Patient was advised of her findings. Patient was given a dose ofRocephin here. Case was discussed with . He will admit the patient to his service. Patient understood and was agreeable with the plan. All questions were answered. Discharge Plan Dx/Rx/DC Orders Clinical Impression: Urinary tract infection, Leukocytosis, Calculus of proximal right ureter Disposition Disposition: Acute Care [facility] What to do if you have Problems For any increased pain, shortness of breath, bleeding, nausea or vomiting, chestpain, or any unexpected problems, contact your Primary Care Provider. Call [facility] ([phone]) or report tothe closest Emergency Room. Call 911 if necessary. 05/31/24 0016 Cosigner Signature (if applicable): CC: CHRISSY Lanier ~ Signed [facility]04-01-2025 Evaluation note* Diagnosis Onset Date Resolution Status Admit Date Calculus of proximal right ureter ac sharifa May 30, 2024 8:52pm Leukocytosis acute May 30, 025 8:52pm [facility] Work Phone: [phone] 376-484904-01-2025 Discharge summary Author Linwood Vega [facility] Note Date/Time May 30, 2024 8:48 pm [facility] Medical Records Department [address] [place] [address] Instructions for Home/Discharge Instructions 05/30/242047 MR#: [id number] Acct: [id number] Name: LAKEISHA TOPETE Rep #:[id number] : 1970 53 From: Linwood Vega MD PCP: Desire Lanier NP-C Status:ADM I N Discharge Instructions Diet Discharge Diet: No restrictions DC O2, CPAP, BIPAP needs Home O2 Discharge instructions: No Dressing / Incision Discharge Activity: Return to Normal Activity and May Not Drive (while taking narcotic pain medications.) Dressing / Incision Call your doctor if you observe: Fever of 101 or Higher Follow Up Care Please Follow Up With: Linwood Vega MD When: Call [phone] for an appointment Test Results: Test results from this visit will be discussed in further detail at your follow- up appointment, if applicable. Discharge Plan Admission Admit Date/Time: 05/30/24 19:16 Attending Provider: Linwood Vega Primary Care Provider: Desire Lanier NP Discharge Orders/Prescriptions Prescriptions: No Action fluoxetine 20 MG capsule 20 mg PO DAILY metformin 500 mg tablet 500 mg PO BID Qty: 20 0RF budesonide-formoterol [Symbicort] 80-4.5 mcg/actuation HFA aerosol inhaler 2 puff inhalation BID Qty: 10.2 0RF ibuprofen 800 mg tablet 800 mg PO TID PRN (Reason: pain) Qty: 20 0RF glipizide 5 mg tablet extended release 24hr 5 mg PO DAILY epinephrine 0.3 mg/0.3 mL auto-injector 0.3 mg IM UD PRN (Reason: anaphylaxis) acetaminophen 500 mg tablet 500 mg PO Q6H PRN (Reason: pain) aripiprazole 5 mg tablet 5 mg PO DAILY simvastatin 80 mg tablet 80 mg PO QHS losartan 25 mg tablet 25 mg PO DAILY oxybutynin chloride 5 mg tablet extended release 24hr 5 mg PO DAILY albuterol sulfate [Ventolin HFA] 90 mcg/actuation HFA aerosol inhaler 1 - 2 puff inhalation Q4H PRN (Reason: Wheezing) Rx Instructions: please give spacer fluticasone propionate 50 mcg/actuation spray,suspension 2 spray INTRANASAL DAILY Referrals / Follow Up: Desire Lanier NP, NP-C [Primary Care Provider] - 05/30/242047<Electronically signed by Linwood Vega MD>Linwood Vega MD CC: SPEECH COACH-C Desire Lanier ~ Signed [facility] Work Phone: 1(162) 963-789604-01-2025 History and physical note Author Linwood Vega [facility] Note Date/Time May 30, 2024 8:48 pm [facility] Medical Records Department [address] [place] [id number] History & Physical Exam 05/30/242046 MR#: [id number] Acct: [id number] Name: LAKEISHA TOPETE Rep #:[id number] : 1970 53 From: Linwood Vega MD PCP: CHRISSY Alcantara Status:ADM I N Location: [facility] WR060-0 HPI - General General Date of Admission: 05/30/24 Date of Service: 05/30/24 Chief Complaint: right kidney stone HPI Narrative LAKEISHA TOPETE, is a 53 F who presents w severe right flank pain with stone admit to hospital take to surgery tomorrow for Right ESWL possible stent PFSH Medical History Bipolar disorder Arthritis Smoker Restless legs Anxiety Depression Sleep apnea Irregular heart beat Seizures TIA (transient ischemic attack) Hyperlipidemia Bipolar 1 disorder Hypertension Diabetes Asthma Home Medications ?Medication ?Instructions ?Recorded ?Last Taken ?Type fluoxetine 20 mg capsule 20 mg PO DAILY depression 05/29/24 History metformin 500 mg tablet 500 mg PO BID #20 tabs 05/2505/29/24 Rx budesonide-formoterol HFA 80 2 puff inhalation BID #10 .2 grams 01/04/23 05/29/24 Rx mcg-4.5 mcg/actuation aerosol inhaler (Symbicort) ibuprofen 800 mg tablet 800 mg PO TID PRN pain #20 t abs 09/07/23 12/01/23 Rx epinephrine 0.3 mg/0.3 mL 0.3 mg IM UD PRN anaphylaxis 12/01/23 Unknown History injection, auto-injector glipizide 5 mg tablet, extended 5 mg PO DAILY 12/01/23 05/29/24 History release 24 hr acetaminophen 500 mg tablet 500 mg PO Q6H PRN pain 05/2212/01/23 History albuterol sulfate 90 mcg/actuation 1 - 2 puff inhalati on Q4H PRN 12/02/23 Unknown History aerosol inhaler (Ventolin HFA) Wheezing aripiprazole 5 mg tablet 5 mg PO DAILY 12/02/2305/29 History losartan 25 mg tablet 25 mg PO DAILY 12/02/2305/01 History oxybutynin chloride 5 mg 5 mg PO DAILY 12/02/2305/29 History tablet,extended release 24 hr simvastatin 80 mg tablet 80 mg PO QHS 12/02/23 History fluticasone propionate 50 2 spray intranasal DAILY 03/25 Unknown History mcg/actuation nasal spray,suspension Allergy/AdvReac Type Severity Reaction Status Date / Time Penicillins AdvReac Vomiting Verified 05/30/24 16:02 Surgical History S/P dilatation and curettage Hx of cholecystectomy Hx of breast surgery Hx of tubal ligation Social History Smoking Status: Current some day smoker tobacco type: e-cigarettes and smokeless tobacco Vital Signs Vital Signs Vital Signs: 05/30/24 16:02 05/30/24 18:01 05/30/24 19:31 Temperature 98.5 F 97.9 F 97.2 F L Temperature Source Oral Oral Pulse Rate 73 82 98 Respiratory Rate 16 16 22 H Blood Pressure 121/70 H 133/67 H 164/90 H Blood Pressure Mean 87 89 114 Pulse Ox 98 96 95 Oxygen Delivery Method Room Air Room Air Weight Weight: 89.675 kg Body Mass Index (BMI) 42.7 Physical Exam Const alert and oriented x3 General Appearance: cooperative HEENT normocephalic, head/scalp atraumatic, EAC's normal and TM's normal bilaterally Eyes PERRL and EOMs intact bilaterally Pupil: sluggish Neck no lymphadenopathy, supple and no JVD General: trachea midline Lymph Lymphatic: no lymphadenopathy noted, lymphedema and lymphadenopathy Resp normal respiratory effort, normal air movement and clear to auscultation bilaterally Cardio regular rate, regular rhythm and peripheral pulses 2+ throughout GI soft to palpation, non-tender and non-distended Extremity normal capillary refill and no clubbing, cyanosis or edema General Extremity: no tenderness to palpation of joints or extremities Skin no rashes or lesions noted General Skin Exam: turgor normal Lesions: no lesions Rashes: no rashes Neuro CN's II-XII intact bilaterally Speech: speech normal Motor Exam: strength 5/5 throughout; Negative for general weakness Psych thought process normal, cooperative and affect normal Appearance: appropriate Results Medical Records Data Attestation: I reviewed the patient's medical records Lab / Micro Data 05/30/24 16:29 05/30/24 16:29 Labs: Laboratory Results - last 24 hr 05/30/24 16:03: Urine Color Yellow, Urine Clarity Cloudy, Urine pH 6.0, Ur Specific [place] 1.020, Urine Protein 100 H, Urine Glucose (UA) Normal, Urine Ketones Negative, Urine Occult Blood 150 H, Urine Nitrite Negative, Urine Bilirubin Negative, Urine Urobilinogen 1 H, Ur Leukocyte Esterase 500 H, Urine RBC 10-25 SEEN, Urine WBC >100 SEEN, Ur Squamous Epith Cells 0-5 SEEN, Urine Bacteria 3+, Urine Mucus 0 SEEN 05/30/24 16:29: WBC 15.9 H, RBC 4.65, Hgb 11.0 L, Hct 35.4 L, MCV 76.1 L, MCH 23.7 L, MCHC 31.1 L, RDW Std Deviation 44.7 H, RDW Coeff of Yohannes 16.5 H, Plt Count 315, MPV 10.1, Immature Gran % (Auto) 0.900, Neut % (Auto) 69.6, Lymph % (Auto) 16.0 L, [place] % (Auto) 12.2 H, Eos % (Auto) 0.9, Baso % (Auto) 0.4, Absolute Neuts (auto) 11.1 H, Absolute Lymphs (auto) 2.54, Nucleated RBC % 0, Differential Comment SCANNED, Diff Path Review June foll, Sodium 140, Potassium 3.3, Chloride 103, Carbon Dioxide 23.6, Anion Gap 14, BUN 12, Creatinine 1.01, Estim Creat Clear Calc 66.64, Est GFR (MDRD) Non-Af 67, BUN/Creatinine Ratio 12.0, Glucose 102 H, Calcium 9.2, Total Bilirubin 0.53, AST 18, ALT 10, AlkalinePhosphatase 93, Total Protein 7.8, Albumin 3.9, Globulin 3.9, Albumin/Globulin Ratio 1.0, Lipase 20 Imaging Radiology Impression Abdomen/Pelvis CT 05/30/24 16:13 IMPRESSION: 1. Obstructing right ureteral stone at the UVJ measuring 8 mm with moderate hydroureteronephrosis. 2. Mild hepatomegaly with diffuse hepatic steatosis. 3. Stable cystic focus within the right ovary. Follow-up pelvic ultrasound in 6weeks is recommended for further evaluation. Reading Location: [facility] Assessment & Plan Assessment/Plan (1) Calculus of proximal right ureter: PLAN: plan for right ESWl AND STETN IN AM. NPO (2) Leukocytosis: 05/30/242047 <Electronically signed by Linwood Vega MD> Cosigner Signature (if applicable): CC: SUSIEC Desire Lanier; Dr. Linwood Vega MD~ Signed [facility] Work Phone: 1(740) 103-677204-01-2025 Discharge summary [facility] Medical Records Department [address] [place] [address] Instructions for Home/Discharge Instructions 05/30/242047 MR#: [id number] Acct: [id number] Name: LAKEISHA TOPETE Rep #:[id number] : 1970 53 From: Linwood Vega MD PCP: CHRISSY Alcantara Status:ADM I N Discharge Instructions Diet Discharge Diet: No restrictions DC O2, CPAP, BIPAP needs Home O2 Discharge instructions: No Dressing / Incision Discharge Activity: Return to Normal Activity and May Not Drive (while taking narcotic pain medications.) Dressing / Incision Call your doctor if you observe: Fever of 101 or Higher Follow Up Care Please Follow Up With: Linwood Vega MD When: Call [phone] for an appointment Test Results: Test results from this visit will be discussed in further detail at your follow- up appointment, if applicable. Discharge Plan Admission Admit Date/Time: 05/30/24 19:16 Attending Provider: Linwood Vega Primary Care Provider: Desire Lanier NP Discharge Orders/Prescriptions Prescriptions: No Action fluoxetine 20 MG capsule 20 mg PO DAILY metformin 500 mg tablet 500 mg PO BID Qty: 20 0RF budesonide-formoterol [Symbicort] 80-4.5 mcg/actuation HFA aerosol inhaler 2 puff inhalation BID Qty: 10.2 0RF ibuprofen 800 mg tablet 800 mg PO TID PRN (Reason: pain) Qty: 20 0RF glipizide 5 mg tablet extended release 24hr 5 mg PO DAILY epinephrine 0.3 mg/0.3 mL auto-injector 0.3 mg IM UD PRN (Reason: anaphylaxis) acetaminophen 500 mg tablet 500 mg PO Q6H PRN (Reason: pain) aripiprazole 5 mg tablet 5 mg PO DAILY simvastatin 80 mg tablet 80 mg PO QHS losartan 25 mg tablet 25 mg PO DAILY oxybutynin chloride 5 mg tablet extended release 24hr 5 mg PO DAILY albuterol sulfate [Ventolin HFA] 90 mcg/actuation HFA aerosol inhaler 1 - 2 puff inhalation Q4H PRN (Reason: Wheezing) Rx Instructions: please give spacer fluticasone propionate 50 mcg/actuation spray,suspension 2 spray INTRANASAL DAILY Referrals / Follow Up: Desire Lanier NP, SPEECH COACH-C [Primary Care Provider] - 05/30/242047Linwood Vega MD CC: SPEECH COACH-C Desire Lanier ~ Signed [facility] [facility] [place]04-01-2025 History and physical note [facility] Medical Records Department [address] [place] [address] History & Physical Exam 05/30/242046 MR#: [id number] Acct: [id number] Name: LAKEISHA TOPETE Rep #:[id number] : 1970 53 From: Linwood Vega MD PCP: CHRISSY Alcantara Status:ADM I N Location: [place] [id number] [facility] - General General Date of Admission: 05/30/24 Date of Service: 05/30/24 Chief Complaint: right kidney stone HPI Narrative LAKEISHA TOPETE, is a 53 F who presents w severe right flank pain with stone admit to hospital take to surgery tomorrow for Right ESWL possible stent [facility] Medical History Bipolar disorder Arthritis Smoker Restless legs Anxiety Depression Sleep apnea Irregular heart beat Seizures TIA (transient ischemic attack) Hyperlipidemia Bipolar 1 disorder Hypertension Diabetes Asthma Home Medications ?Medication ?Instructions ?Recorded ?Last Taken ?Type fluoxetine 20 mg capsule 20 mg PO DAILY depression 05/29/24 History metformin 500 mg tablet 500 mg PO BID #20 tabs 05/2505/29/24 Rx budesonide-formoterol HFA 80 2 puff inhalation BID #10 .2 grams 01/04/23 05/29/24 Rx mcg-4.5 mcg/actuation aerosol inhaler (Symbicort) ibuprofen 800 mg tablet 800 mg PO TID PRN pain #20 t abs 09/07/23 12/01/23 Rx epinephrine 0.3 mg/0.3 mL 0.3 mg IM UD PRN anaphylaxis 12/01/23 Unknown History injection, auto-injector glipizide 5 mg tablet, extended 5 mg PO DAILY 12/01/23 05/29/24 History release 24 hr acetaminophen 500 mg tablet 500 mg PO Q6H PRN pain 05/2212/01/23 History albuterol sulfate 90 mcg/actuation 1 - 2 puff inhalati on Q4H PRN 12/02/23 Unknown History aerosol inhaler (Ventolin HFA) Wheezing aripiprazole 5 mg tablet 5 mg PO DAILY 12/02/2305/29 History losartan 25 mg tablet 25 mg PO DAILY 12/02/2305/01 History oxybutynin chloride 5 mg 5 mg PO DAILY 12/02/2305/29 History tablet,extended release 24 hr simvastatin 80 mg tablet 80 mg PO QHS 12/02/23 History fluticasone propionate 50 2 spray intranasal DAILY 03/25 Unknown History mcg/actuation nasal spray,suspension Allergy/AdvReac Type Severity Reaction Status Date / Time Penicillins AdvReac Vomiting Verified 05/30/24 16:02 Surgical History S/P dilatation and curettage Hx of cholecystectomy Hx of breast surgery Hx of tubal ligation Social History Smoking Status: Current some day smoker tobacco type: e-cigarettes and smokeless tobacco Vital Signs Vital Signs Vital Signs: 05/30/24 16:02 05/30/24 18:01 05/30/24 19:31 Temperature 98.5 F 97.9 F 97.2 F L Temperature Source Oral Oral Pulse Rate 73 82 98 Respiratory Rate 16 16 22 H Blood Pressure 121/70 H 133/67 H 164/90 H Blood Pressure Mean 87 89 114 Pulse Ox 98 96 95 Oxygen Delivery Method Room Air Room Air Weight Weight: 89.675 kg Body Mass Index (BMI) 42.7 Physical Exam Const alert and oriented x3 General Appearance: cooperative HEENT normocephalic, head/scalp atraumatic, EAC's normal and TM's normal bilaterally Eyes PERRL and EOMs intact bilaterally Pupil: sluggish Neck no lymphadenopathy, supple and no JVD General: trachea midline Lymph Lymphatic: no lymphadenopathy noted, lymphedema and lymphadenopathy Resp normal respiratory effort, normal air movement and clear to auscultation bilaterally Cardio regular rate, regular rhythm and peripheral pulses 2+ throughout GI soft to palpation, non-tender and non-distended Extremity normal capillary refill and no clubbing, cyanosis or edema General Extremity: no tenderness to palpation of joints or extremities Skin no rashes or lesions noted General Skin Exam: turgor normal Lesions: no lesions Rashes: no rashes Neuro CN's II-XII intact bilaterally Speech: speech normal Motor Exam: strength 5/5 throughout; Negative for general weakness Psych thought process normal, cooperative and affect normal Appearance: appropriate Results Medical Records Data Attestation: I reviewed the patient's medical records Lab / Micro Data 05/30/24 16:29 05/30/24 16:29 Labs: Laboratory Results - last 24 hr 05/30/24 16:03: Urine Color Yellow, Urine Clarity Cloudy, Urine pH 6.0, Ur Specific [place] 1.020, Urine Protein 100 H, Urine Glucose (UA) Normal, Urine Ketones Negative, Urine Occult Blood 150 H, Urine Nitrite Negative, Urine Bilirubin Negative, Urine Urobilinogen 1 H, Ur Leukocyte Esterase 500 H,Urine RBC 10-25 SEEN, Urine WBC >100 SEEN, Ur Squamous Epith Cells 0-5 SEEN, Urine Bacteria 3+, Urine Mucus 0 SEEN 05/30/24 16:29: WBC 15.9 H, RBC 4.65, Hgb 11.0 L, Hct 35.4 L, MCV 76.1 L, MCH 23.7 L, MCHC 31.1 L, RDW Std Deviation 44.7 H, RDW Coeff of Yohannes 16.5 H, Plt Count 315, MPV 10.1, Immature Gran % (Auto) 0.900, Neut % (Auto) 69.6, Lymph % (Auto) 16.0 L, [place] % (Auto) 12.2 H, Eos % (Auto) 0.9, Baso % (Auto) 0.4, Absolute Neuts (auto) 11.1 H, Absolute Lymphs (auto) 2.54, Nucleated RBC % 0, Differential Comment SCANNED, Diff Path Review June, Sodium 140, Potassium 3.3, Chloride 103, Carbon Dioxide 23.6, Anion Gap 14, BUN 12, Creatinine 1.01, Estim Creat Clear Calc 66.64, Est GFR (MDRD) Non-Af 67, BUN/Creatinine Ratio 12.0, Glucose 102 H, Calcium 9.2, Total Bilirubin 0.53, AST 18, ALT 10, Alkaline Phosphatase 93, Total Protein 7.8, Albumin 3.9, Globulin 3.9, Albumin/Globulin Ratio 1.0, Lipase 20 Imaging Radiology Impression Abdomen/Pelvis CT 05/30/24 16:13 IMPRESSION: 1. Obstructing right ureteral stone at the UVJ measuring 8 mm with moderate hydroureteronephrosis. 2. Mild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 Sprays in each nostril once daily. Rinse mouth after use. (Patient not taking: Reported on 12/23/2023) Vrn[place]-Pa-Cnl-Fe-FA tab Take 1 tablet by mouth once daily. norethindrone (AYGESTIN) 5 mg tablet Take 1 tablet by mouth as directed. one tablet daily or BID asneeded to slow vaginal bleeding acetaminophen (TYLENOL EXTRA STRENGTH) 500 mg tablet Take 1 tablet by mouth every 8 hours as neededfor pain. ibuprofen (MOTRIN) 600 mg tablet Take 1 tablet by mouth every 6 hours as needed for pain. FOR PAIN. ferrous sulfate (SLOW FE) 137 mg (45 mg iron) TbER Take 1 tablet by mouth once daily. albuterol HFA (PROVENTIL HFA, VENTOLIN HFA) 90 mcg/actuation inhaler Inhale 2 Puffs as instructed every 4 hours as needed for wheezing/shortness of breath. omeprazole (PRILOSEC) 40 mg capsule Take by mouth. ARIPiprazole (ABILIFY) 5 mg tablet Take 1 tablet by mouth once daily. For 30 days FLUoxetine (PROZAC) 20 mg capsule Take 1 capsule by mouth once daily. losartan (COZAAR) 25 mg tablet Take 1 tablet by mouth once daily. For 30 days metFORMIN (GLUCOPHAGE) 500 mg tablet Take 500 mg by mouth twice daily. Ipratropium (ATROVENT) 17 mcg/actuation inhaler Inhale 2 Puffs as instructed every 6 hours. fluticasone (FLONASE) 50 mcg/actuation nasal spray Use 1 [place] in each nostril once daily. mometasone-formoterol (DULERA) 100-5 mcg/actuation inhaler Inhale 2 Puffs as instructed twice daily. albuterol HFA (PROAIR HFA) 90 mcg/actuation inhaler Inhale 2 Puffs as instructed every 4 hours as needed for Wheezing/Shortness of Breath. FAMILY HISTORY Problem Relation Age of Onset Cancer Mother breast cancer Diabetes Mother COPD Father Coronary Artery Disease Father of [place] Breast Cancer Sister Heart Brother No Known Problems Maternal Grandmother No Known Problems Maternal Grandfather No Known Problems Paternal Grandmother No Known Problems Paternal Grandfather No Known Problems Daughter No Known Problems Daughter No Known Problems Daughter No Known Problems Daughter Adopted No Known Problems Son No Known Problems Son Social History Tobacco Use Smoking status: Never Smokeless tobacco: Never Tobacco comments: VAPE Vaping Use Vaping status: Some Days Substances: CBD Substance Use Topics Alcohol use: Not Currently Drug use: Never Review of Systems Constitutional: Negative for fever. HENT: Positive for congestion, ear pain and sore throat. Negative for nosebleeds. Respiratory: Positive for cough. Negative for shortness of breath and wheezing. Gastrointestinal: Positive for diarrhea, nausea and vomiting. Negative for abdominal pain and constipation. Musculoskeletal: Negative for neck pain. Objective Blood pressure 145/89, pulse 75, temperature 36.2 C (97.2 F), resp. rate 18, weight 92.2 kg (203 lb4.2 oz), last menstrual period 11/22/2023, SpO2 99%. Physical Exam Constitutional: General: She is not in acute distress. Appearance: Normal appearance. She is not toxic-appearing or diaphoretic. HENT: Head: Normocephalic and atraumatic. Right Ear: Hearing, tympanic membrane, ear canal and external ear normal. Left Ear: Hearing, tympanic membrane, ear canal and external ear normal. Nose: Nose normal. Mouth/Throat: Pharynx: Uvula midline. No pharyngeal swelling, oropharyngeal exudate, posterior oropharyngeal erythema or uvula swelling. Eyes: General: Lids are normal. No scleral icterus. Right eye: No discharge. Left eye: No discharge. Conjunctiva/sclera: Conjunctivae normal. Pupils: Pupils are equal, round, and reactive to light. Neck: Trachea: Trachea normal. Cardiovascular: Rate and Rhythm: Normal rate and regular rhythm. Heart sounds: Normal heart sounds. Pulmonary: Effort: Pulmonary effort is normal. Breath sounds: Normal breath sounds. Abdominal: General: Bowel sounds are normal. Palpations: Abdomen is soft. Tenderness: There is generalized abdominal tenderness (achy). Musculoskeletal: Cervical back: Normal range of motion and neck supple. Lymphadenopathy: Cervical: No cervical adenopathy. Right cervical: No superficial cervical adenopathy. Left cervical: No superficial cervical adenopathy. Skin: General: Skin is warm and dry. Findings: No rash. Neurological: Mental Status: She is alert and oriented to person, place, and time. ASSESSMENT/PLAN: 1. URI, acute - ICD9: 465.9, ICD10: J06.9 - Discussed viral etiology and rationale for treatment. - Symptomatic treatment with prn analgesia - Supportive care with fluids and rest - Follow up in 3-5 days if symptoms persist or sooner if worsening of symptoms - FLUTICASONE PROPIONATE 50 MCG/ACTUATION NASAL SPRAY,SUSPENSION Enrique Martin APRN.SUPER[employer]OR [employer] [facility] Telephone encounter Note * Telephone Encounter - Susy Mac MA - 04/10/2024 2:09 PM EST pharm requesting refills: Last office visit 08/24/2023. Last refill 08/24/2023. Requested Prescriptions Pending Prescriptions Disp Refills glipiZIDE XL (GLUCOTROL XL) 5 mg 24 hr tablet 90 tablet Sig: Take 1 tablet by mouth once daily. Please review and advise. Susy Mac MA [facility]02-10-[facility] Miscellaneous Notes* Telephone Encounter - Susy Mac MA - 04/10/2024 2:09 PM EST pharm requesting refills: Last office visit 08/24/2023. Last refill 08/24/2023. Requested Prescriptions Pending Prescriptions Disp Refills glipiZIDE XL (GLUCOTROL XL) 5 mg 24 hr tablet 90 tablet Sig: Take 1 tablet by mouth once daily. Please review and advise. Susy Mac MA documented [facility] History of Present illness Narrative* Christofer Che RT(R) - 03/22/2024 1:50 PM EST Radiology Service Progress Note PATIENT NAME: Lakeisha Topete DATE OF SERVICE: March 22, 2024 TIME: 1:42 PM PATIENT IDENTITY VERIFICATION COMPLETED USING TWO (2) IDENTIFIERS: Name and Date of confirmedby patient verbally. FALL SCREENING: Has the patient had 2 falls in the last year or 1 fall with injury or currently using an Ambulatory Assistive Device (Walker, Cane, Wheelchair, Crutches, etc.)? No PATIENT GENDER DATA: Assigned female at . status: : No status:NO. PATIENT RELEVANT IMPLANT DATA REVIEWED: Yes PATIENT PRESENTS WITH AN IMPLANTABLE OR ATTACHED SCAFFOLD ERECTOR: No RADIOLOGY DEPARTMENT: General X-ray: Exam(s) Completed: Spine X-Ray(s): Lumbar AP / LAT / L5-S1 Pelvis X-Ray: Pelvis with Hip Right PERIPHERAL IV DATA: Not applicable SIGNED BY: RT Nikunj(Meka) March 22, 2024 1:42 PM documented [facility]25 NoteHNO ID: [id number] Author: CHRISTOFER CHE RT(Meka) Service: ? Author Type: [employer] Paralegal Type: Progress Notes Filed: 03/22/2024 13:56 Note Text: Radiology Service Progress Note PATIENT NAME: Lakeisha Topete DATE OF SERVICE: March 22, 2024 TIME: 1:42 PM PATIENT IDENTITY VERIFICATION COMPLETED USING TWO (2) IDENTIFIERS: Name and Date of confirmed by patient verbally. FALL SCREENING: Has the patient had 2 falls in the last year or 1 fall with injury or currently using an Ambulatory Assistive Device (Walker, Cane, Wheelchair, Crutches, etc.)? No PATIENT GENDER DATA: Assigned female at . status: : No status: NO. PATIENT RELEVANT IMPLANT DATA REVIEWED: Yes PATIENT PRESENTS WITH AN IMPLANTABLE OR ATTACHED SCAFFOLD ERECTOR: No RADIOLOGY DEPARTMENT: General X-ray: Exam(s) Completed: Spine X-Ray(s): Lumbar AP / LAT / L5-S1 Pelvis X-Ray: Pelvis with Hip Right PERIPHERAL IV DATA: Not applicable SIGNED BY: RT Nikunj(R) March 22, 2024 1:42 [facility]01-22-2025 NoteHNO ID: [id number] Author: SEAN AN PA-C Service: ? Author Type: Physician Blender Helper Type: Progress Notes Filed: 03/22/2024 14:33 Note Text: This note was created using [employer]. Subjective Lakeisha Topete is a 53 year old female. Patient is a 53-year-old female who arrives for evaluation of 2 separate complaints. Patient reports that she sustained a fall injury on the ice last evening and is complaining of lower back and right hip pain. Patient reports that she does have a history of chronic low back pain. Patient denies paresthesia or paralysis to her bilateral legs and states that the pain radiates from her lower back to her right hip and leg. Patient denies history of fracture or surgery to her lumbar back and right hip. Patient states that she has full control of bowel and bladder denies episodes of incontinence. Patient is able to bear weight and ambulate although it is painful to do so. Patient explains that she did take a cab to our facility today. Patient also complains of redness to the skin to her right cheek which has been present for the past 3 to 4 days. Patient states that the site has become increasingly painful. Patient states that her right eye itself is asymptomatic and she has noted no redness, matting or discharge to her right eye. Patient denies fever, chills or other systemic illness symptoms. Fall Review of Systems Musculoskeletal: Low Back Pain After Fall; Right Hip Pain After Fall Skin: Redness and Pain to Right Cheek All other systems reviewed and are negative. Objective BP 147/89 Pulse 71 Temp 36.4 ?C (97.5 ?F) Resp 18 Wt 90.8 kg (200 lb 2.8 oz) LMP 11/22/2023 (Approximate) SpO2 99% BMI 41.84 kg/m? Physical Exam Vitals and nursing note reviewed. Constitutional: Appearance: Normal appearance. She is normal weight. HENT: Head: Normocephalic and atraumatic. Right Ear: External ear normal. Left Ear: External ear normal. Nose: Nose normal. Mouth/Throat: Mouth: Mucous membranes are moist. Pharynx: Oropharynx is clear. Eyes: General: Right eye: No discharge. Left eye: No discharge. Extraocular Movements: Extraocular movements intact. Conjunctiva/sclera: Conjunctivae normal. Pupils: Pupils are equal, round, and reactive to light. Cardiovascular: Rate and Rhythm: Normal rate. Pulses: Normal pulses. Heart sounds: Normal heart sounds. Pulmonary: Effort: Pulmonary effort is normal. Breath sounds: Normal breath sounds. Abdominal: General: Abdomen is flat. Palpations: Abdomen is soft. Musculoskeletal: General: Tenderness present. No swelling, deformity or signs of injury. Normal range of motion. Cervical back: Normal range of motion and neck supple. No rigidity or tenderness. Skin: General: Skin is warm and dry. Capillary Refill: Capillary refill takes less than 2 seconds. Findings: Erythema present. No bruising. Comments: Mild erythema is noted to the right cheek. No induration or fluctuance is noted with palpation. There does appear to be a healing skin wound with an eschar over the right zygomatic arch. There is no bleeding, serous or purulent fluid noted to the site. Exam of the right periorbital skin is clear and there is no erythema or edema noted to same. No ptosis is noted and exam of the right eye is fully unremarkable. Remainder of exam to the facial skin and scalp was unremarkable. Neurological: General: No focal deficit present. Mental Status: She is alert and oriented to person, place, and time. Cranial Nerves: No cranial nerve deficit. Sensory: No sensory deficit. Motor: No weakness. Coordination: Coordination normal. Gait: Gait normal. Psychiatric: Mood and Affect: Mood normal. Behavior: Behavior normal. Thought Content: Thought content normal. Judgment: Judgment normal. Assessment and Plan Physical exam findings as noted above. X-ray lumbar spine is negative for acute findings, however the radiologist does describe degenerative changes with multilevel disc space narrowing. There is an L5 on S1 anterolisthesis with L5 pars defect. X-ray right hip and pelvis is negative for acute findings as reported by the radiologist. Patient was informed of the above findings and states that she has never been informed that she has been developing degenerative disc disease to her neck or back. Patient was provided with a prescription for doxycycline 100 mg for right facial cellulitis and Robaxin 500 mg for her acute lumbar back pain. Patient was very clearly instructed to report to an emergency department if she notes any new or worsening symptoms. Patient was also encouraged to schedule appointment with her primary care provider as she may require MRI imaging at some point if her back pain persists or worsens. Patient verbalizes clear understanding of all of the above instructions. CLINICAL IMPRESSION: Contusion Right Hip; Acute Lumbar Back Pain; Degenerativ (more content not included)...[facility]01-22-2025 History of Present illness Narrative* Sean An PA-C - 03/22/2024 1:39 PM EST This note was created using [employer]. Subjective Lakeisha Topete is a 53 year old female. Patient is a 53-year-old female who arrives for evaluation of 2 separate complaints. Patient reports that she sustained a fall injury on the ice last evening and is complaining of lower back and right hip pain. Patient reports that she does have a history of chronic low back pain. Patient denies par esthesia or paralysis to her bilateral legs and states that the pain radiates from her lower back to her right hip and leg. Patient denies history of fracture or surgery to her lumbar back and right hip. Patient states that she has full control of bowel and bladder denies episodes of incontinence. Patient is able to bear weight and ambulate although it is painful to do so. Patient explains that she did take a cab to our facility today. Patient also complains of redness to the skin to her right cheek which has been present for the past 3 to 4 days. Patient states that the site has become increasingly painful. Patient states that her right eye itself is asymptomatic and she has noted no redness, matting or discharge to her right eye. Patient denies fever, chills or other systemic illness symptoms. Fall Review of Systems Musculoskeletal: Low Back Pain After Fall; Right Hip Pain After Fall Skin: Redness and Pain to Right Cheek All other systems reviewed and are negative. Objective BP 147/89 Pulse 71 Temp 36.4 C (97.5 F) Resp 18 Wt 90.8 kg (200 lb 2.8 oz) LMP 11/22/2023(Approximate) SpO2 99% BMI 41.84 kg/m Physical Exam Vitals and nursing note reviewed. Constitutional: Appearance: Normal appearance. She is normal weight. HENT: Head: Normocephalic and atraumatic. Right Ear: External ear normal. Left Ear: External ear normal. Nose: Nose normal. Mouth/Throat: Mouth: Mucous membranes are moist. Pharynx: Oropharynx is clear. Eyes: General: Right eye: No discharge. Left eye: No discharge. Extraocular Movements: Extraocular movements intact. Conjunctiva/sclera: Conjunctivae normal. Pupils: Pupils are equal, round, and reactive to light. Cardiovascular: Rate and Rhythm: Normal rate. Pulses: Normal pulses. Heart sounds: Normal heart sounds. Pulmonary: Effort: Pulmonary effort is normal. Breath sounds: Normal breath sounds. Abdominal: General: Abdomen is flat. Palpations: Abdomen is soft. Musculoskeletal: General: Tenderness present. No swelling, deformity or signs of injury. Normal range of motion. Cervical back: Normal range of motion and neck supple. No rigidity or tenderness. Skin: General: Skin is warm and dry. Capillary Refill: Capillary refill takes less than 2 seconds. Findings: Erythema present. No bruising. Comments: Mild erythema is noted to the right cheek. No induration or fluctuance is noted with palpation. There does appear to be a healing skin wound with an eschar over the right zygomatic arch. There is no bleeding, serous or purulent fluid noted to the site. Exam of the right periorbital skin is clear and there is no erythema or edema noted to same. No ptosis is noted and exam of the right eye is fully unremarkable. Remainder of exam to the facial skin and scalp was unremarkable. Neurological: General: No focal deficit present. Mental Status: She is alert and oriented to person, place, and time. Cranial Nerves: No cranial nerve deficit. Sensory: No sensory deficit. Motor: No weakness. Coordination: Coordination normal. Gait: Gait normal. Psychiatric: Mood and Affect: Mood normal. Behavior: Behavior normal. Thought Content: Thought content normal. Judgment: Judgment normal. Assessment and Plan Physical exam findings as noted above. X-ray lumbar spine is negative for acute findings, however the radiologist does describe degenerative changes with multilevel disc space narrowing. There is an L5 on S1 anterolisthesis with L5 pars defect. X-ray right hip and pelvis is negative for acute findings as reported by the radiologist. Patient was informed of the above findings and states that she has never been informed that she has been developing degenerative disc disease to her neck or back. Patient was provided with a prescription for doxycycline 100 mg for right facial cellulitis and Robaxin 500 mg for her acute lumbar back pain. Patient was very clearly instructed to report to an emergency department if she notes any new or worsening symptoms. Patient was also encouraged to schedule appointment with her primary care provider as she may require MRI imaging at some point if her back pain persists or worsens. Patient verbalizes clear understanding of all of the above instructions. CLINICAL IMPRESSION: Contusion Right Hip; Acute Lumbar Back Pain; Degenerative Disc Disease Lumbar Spine; Right Facial Cellulitis ASSESSMENT/PLAN: 1. Contusion of right hip, initial encounter - ICD9: 924.01, ICD10: S70.01XA (primary diagnosis) - XR HIP GENERAL 3V PELV/AP/LAT RIGHT 2. Lumbar back pain - ICD9: 724.2, ICD10: M54.50 - XR LUMBAR GENERAL 3V AP/LAT/L5-S1 - METHOCARBAMOL 500 MG TABLET 3. Cellulitis of face - ICD9: 682.0, ICD10: L03.211 - DOXYCYCLINE HYCLATE 100 MG TABLET 4. Degeneration of intervertebral disc of lumbar region, unspecified whether pain present - ICD9: 722.52, ICD10: M51.369 Sean An PA-C [facility] Telephone encounter Note * Telephone Encounter - Susy Mac MA - 01/24/2024 8:17 AM EST pharm requesting refills: Last office visit 08/24/2023. Last refill 08/25/2023 nov 03/02/2024 Requested Prescriptions Pending Prescriptions Disp Refills simvastatin (ZOCOR) 80 mg tablet [Pharmacy Med Name: simvastatin 80 mg tablet] 90 tablet 1 Sig: Take 1 tablet by mouth once daily. Please review and advise. Susy Mac MA [facility]11-25-2024 Miscellaneous Notes* Telephone Encounter - Susy Mac MA - 01/24/2024 8:17 AM EST pharm requesting refills: Last office visit 08/24/2023. Last refill 08/25/2023 nov 03/02/2024 Requested Prescriptions Pending Prescriptions Disp Refills simvastatin (ZOCOR) 80 mg tablet [Pharmacy Med Name: simvastatin 80 mg tablet] 90 tablet 1 Sig: Take 1 tablet by mouth once daily. Please review and advise. Susy Mac MA [facility] Telephone encounter Note * Telephone Encounter - Anisha Norman - 01/14/2024 2:27 PM EST Appointment canceled. Appointment notes updated [facility] Work Phone: 1(189) 393-147011-15-2024 Miscellaneous Notes* Telephone Encounter - Anisha Norman - 01/14/2024 2:27 PM EST Appointment canceled. Appointment notes updated * Telephone Encounter - Eva Alvarenga RN - 01/14/2024 2:04 PM EST Spoke to patient to see if she would be able to come in early 01/16 for her venofer infusion. Per patient she stated she cancelled the appointment that day because she has to go into work. Will update the schedule and see patient her next scheduled date. Patient will need to reschedule for missedtreatment day at the end. [facility] Telephone encounter Note * Telephone Encounter - Eva Alvarenga RN - 01/14/2024 2:04 PM EST Spoke to patient to see if she would be able to come in early 01/16 for her venofer infusion. Per patient she stated she cancelled the appointment that day because she has to go into work. Will update the schedule and see patient her next scheduled date. Patient will need to reschedule for missedtreatment day at the end. [facility]10-30-2024 Telephone encounter Note* Telephone Encounter - Michelle Flores - 12/29/2023 3:37 PM EDT Spoke with patient and scheduled. Michelle Flores [facility]10-30-2024 Miscellaneous Notes* Telephone Encounter - Michelle Flores - 12/29/2023 3:37 PM EDT Spoke with patient and scheduled. Michelle Flores * Telephone Encounter - Ranjeet Ellington RN - 12/29/2023 12:20 PM EDT Orders for IV Iron signed and PA approved. Ready to schedule documented in [facility] encounterWestern [facility]10-[facility] Telephone encounter Note * Telephone Encounter - Ranjeet Ellington RN - 12/29/2023 12:20 PM EDT Orders for IV Iron signed and PA approved. Ready to schedule [facility]10-28-2024 NoteHNO ID: [id number] Author: RANJEET ELLINGTON RN Service: ? Author Type: Registered Nurse Type: Progress Notes Filed: 12/27/2023 09:53 Note Text: Patient referred to Blood Management for evaluation and treatment of pre-surgical anemia and/or iron deficiency. Non-surgical: abnormal uterine bleeding Date of surgery: NA Medical/Surgical History: PAST MEDICAL HISTORY Diagnosis Date Allergic rhinitis, cause unspecified Depression 09/26/2010 Diabetes mellitus (HCC) Morbid obesity (HCC) 07/24/2011 Other combinations of endocrine dysfunction Sprain of neck Unspecified asthma(493.90) PAST SURGICAL HISTORY Procedure Laterality Date ENDOMETRIAL BIOPSY 11/17/2023 HYSTEROSCOPY, DIAGNOSTIC (SEPARATE 12/03/2023 DANDC, Myomectomy LAPAROSCOPIC APPENDECTOMY 09/20/2009 LAPS SURG CHOLECYSTECTOMY W/CHOLANGIOGRAPHY IOC - non draining LIG/TRNSXJ FLP TUBE ABDL/VAG APPR UNI/BI Tubal ligation TONSILLECTOMY PRIMARY/SECONDARY Tonsillectomy Other significant Medical/Surgical history: - Prior diagnosis of anemia Current Outpatient Medications Medication Sig EPINEPHrine (EPIPEN) 0.3 mg/0.3 mL auto-injector DIRECTED as needed for anaphylaxis TRUE METRIX GLUCOSE TEST STRIP test strip USE TO TEST BLOOD GLUCOSE 3 TIMES DAILY. oxybutynin XL (DITROPAN XL) 5 mg 24 hr tablet once daily. fluticasone (FLONASE) 50 mcg/actuation nasal spray Use 2 Sprays in each nostril once daily. Rinse mouth after use. (Patient not taking: Reported on 12/23/2023) ibuprofen (MOTRIN) 600 mg tablet Take 1 tablet by mouth every 6 hours as needed for pain. (Patient not taking: Reported on 12/23/2023) Mhxqaxps-Ez-Lyd-Fe-FA tab Take 1 tablet by mouth once daily. norethindrone (AYGESTIN) 5 mg tablet Take 1 tablet by mouth as directed. one tablet daily or BID as needed to slow vaginal bleeding acetaminophen (TYLENOL EXTRA STRENGTH) 500 mg tablet Take 1 tablet by mouth every 8 hours as needed for pain. ibuprofen (MOTRIN) 600 mg tablet Take 1 tablet by mouth every 6 hours as needed for pain. FOR PAIN. ferrous sulfate (SLOW FE) 137 mg (45 mg iron) TbER Take 1 tablet by mouth once daily. albuterol HFA (PROVENTIL HFA, VENTOLIN HFA) 90 mcg/actuation inhaler Inhale 2 Puffs as instructed every 4 hours as needed for wheezing/shortness of breath. simvastatin (ZOCOR) 80 mg tablet Take 1 tablet by mouth once daily. omeprazole (PRILOSEC) 40 mg capsule Take by mouth. glipiZIDE (GLUCOTROL XL) 5 mg 24 hr tablet Take 1 tablet by mouth once daily. ARIPiprazole (ABILIFY) 5 mg tablet Take 1 tablet by mouth once daily. For 30 days FLUoxetine (PROZAC) 20 mg capsule Take 1 capsule by mouth once daily. losartan (COZAAR) 25 mg tablet Take 1 tablet by mouth once daily. For 30 days metFORMIN (GLUCOPHAGE) 500 mg tablet Take 500 mg by mouth twice daily. Ipratropium (ATROVENT) 17 mcg/actuation inhaler Inhale 2 Puffs as instructed every 6 hours. fluticasone (FLONASE) 50 mcg/actuation nasal spray Use 1 [place] in each nostril once daily. mometasone-formoterol (DULERA) 100-5 mcg/actuation inhaler Inhale 2 Puffs as instructed twice daily. albuterol HFA (PROAIR HFA) 90 mcg/actuation inhaler Inhale 2 Puffs as instructed every 4 hours as needed for Wheezing/Shortness of Breath. No current facility-administered medications for this visit. Current medications that may affect iron absorption and/or blood loss: - Antacids (H2 receptor blockers, PPI), - Statin, and - Nonsteroidal anti-inflammatory drugs (aspirin, ibuprofen, naproxen) Baseline laboratory values: WBC (k/uL) Date Value 12/23/2023 12.37 (H) RBC (m/uL) Date Value 12/23/2023 4.01 Hemoglobin (g/dL) Date Value 12/23/2023 8.2 (L) Hematocrit (%) Date Value 12/23/2023 29.6 (L) MCV (fL) Date Value 12/23/2023 73.8 (L) MCH (pg) Date Value 12/23/2023 20.4 (L) MCHC (g/dL) Date Value 12/23/2023 27.7 (L) RDW-CV (%) Date Value 12/23/2023 17.9 (H) Platelet Count (k/uL) Date Value 12/23/2023 400 MPV (fL) Date Value 12/23/2023 11.5 Iron Date Value Ref Range Status 12/23/2023 17 (L) 41 - 186 ug/dL Final TIBC Date Value Ref Range Status 12/23/2023 428 (H) 232 - 386 ug/dL Final Ferritin Date Value Ref Range Status 12/23/2023 9.3 (L) 14.7 - 205.1 ng/mL Final Folate Date Value Ref Range Status 08/24/2023 6.9 >4.7 ng/mL Final Vitamin B12 Date Value Ref Range Status 12/23/2023 321 232 - 1,245 pg/mL Final Transferrin Saturation Date Value Ref Range Status 12/23/2023 4.0 (L) 15.0 - 57.0 % Final Assess for the need to augment a patient?s natural red blood cell production: - Blood transfusion avoidance - Iron depletion Recommendations according to Blood Management patient care guidelines: - Other: Venofer 200 gm IV x 5 total iron deficit using Ganzoni equation = 1248 mg (wt 86 kg/goal hgb 12 g/dL) Clinical information is sent to a provider for review and evaluation for treatment.[facility]10-28-2024 History of Present illness Narrative* Ranjeet Ellington, EVELYN - 12/27/2023 9:38 AM EDT Patient referred to Blood Management for evaluation and treatment of pre- surgical anemia and/or iron deficiency. Non-surgical: abnormal uterine bleeding Date of surgery: NA Medical/Surgical History: PAST MEDICAL HISTORY Diagnosis Date Allergic rhinitis, cause unspecified Depression 09/26/2010 Diabetes mellitus (HCC) Morbid obesity (HCC) 07/24/2011 Other combinations of endocrine dysfunction Sprain of neck Unspecified asthma(493.90) PAST SURGICAL HISTORY Procedure Laterality Date ENDOMETRIAL BIOPSY 11/17/2023 HYSTEROSCOPY, DIAGNOSTIC (SEPARATE 12/03/2023 D&C, Myomectomy LAPAROSCOPIC APPENDECTOMY 09/20/2009 LAPS SURG CHOLECYSTECTOMY W/CHOLANGIOGRAPHY IOC - non draining LIG/TRNSXJ FLP TUBE ABDL/VAG APPR UNI/BI Tubal ligation TONSILLECTOMY PRIMARY/SECONDARY <AGE 12 Tonsillectomy Other significant Medical/Surgical history: - Prior diagnosis of anemia Current Outpatient Medications Medication Sig EPINEPHrine (EPIPEN) 0.3 mg/0.3 mL auto-injector DIRECTED as needed for anaphylaxis TRUE METRIX GLUCOSE TEST STRIP test strip USE TO TEST BLOOD GLUCOSE 3 TIMES DAILY. oxybutynin XL (DITROPAN XL) 5 mg 24 hr tablet once daily. fluticasone (FLONASE) 50 mcg/actuation nasal spray Use 2 Sprays in each nostril once daily. Rinse mouth after use. (Patient not taking: Reported on 12/23/2023) ibuprofen (MOTRIN) 600 mg tablet Take 1 tablet by mouth every 6 hours as needed for pain. (Patient not taking: Reported on 12/23/2023) Jossibtd-Ru-Ces-Fe-FA tab Take 1 tablet by mouth once daily. norethindrone (AYGESTIN) 5 mg tablet Take 1 tablet by mouth as directed. one tablet daily or BID asneeded to slow vaginal bleeding acetaminophen (TYLENOL EXTRA STRENGTH) 500 mg tablet Take 1 tablet by mouth every 8 hours as neededfor pain. ibuprofen (MOTRIN) 600 mg tablet Take 1 tablet by mouth every 6 hours as needed for pain. FOR PAIN. ferrous sulfate (SLOW FE) 137 mg (45 mg iron) TbER Take 1 tablet by mouth once daily. albuterol HFA (PROVENTIL HFA, VENTOLIN HFA) 90 mcg/actuation inhaler Inhale 2 Puffs as instructed every 4 hours as needed for wheezing/shortness of breath. simvastatin (ZOCOR) 80 mg tablet Take 1 tablet by mouth once daily. omeprazole (PRILOSEC) 40 mg capsule Take by mouth. glipiZIDE (GLUCOTROL XL) 5 mg 24 hr tablet Take 1 tablet by mouth once daily. ARIPiprazole (ABILIFY) 5 mg tablet Take 1 tablet by mouth once daily. For 30 days FLUoxetine (PROZAC) 20 mg capsule Take 1 capsule by mouth once daily. losartan (COZAAR) 25 mg tablet Take 1 tablet by mouth once daily. For 30 days metFORMIN (GLUCOPHAGE) 500 mg tablet Take 500 mg by mouth twice daily. Ipratropium (ATROVENT) 17 mcg/actuation inhaler Inhale 2 Puffs as instructed every 6 hours. fluticasone (FLONASE) 50 mcg/actuation nasal spray Use 1 [place] in each nostril once daily. mometasone-formoterol (DULERA) 100-5 mcg/actuation inhaler Inhale 2 Puffs as instructed twice daily. albuterol HFA (PROAIR HFA) 90 mcg/actuation inhaler Inhale 2 Puffs as instructed every 4 hours as needed for Wheezing/Shortness of Breath. No current facility-administered medications for this visit. Current medications that may affect iron absorption and/or blood loss: - Antacids (H2 receptor blockers, PPI), - Statin, and - Nonsteroidal anti- inflammatory drugs (aspirin, ibuprofen, naproxen) Baseline laboratory values: WBC (k/uL) Date Value 12/23/2023 12.37 (H) RBC (m/uL) Date Value 12/23/2023 4.01 Hemoglobin (g/dL) Date Value 12/23/2023 8.2 (L) Hematocrit (%) Date Value 12/23/2023 29.6 (L) MCV (fL) Date Value 12/23/2023 73.8 (L) MCH (pg) Date Value 12/23/2023 20.4 (L) MCHC (g/dL) Date Value 12/23/2023 27.7 (L) RDW-CV (%) Date Value 12/23/2023 17.9 (H) Platelet Count (k/uL) Date Value 12/23/2023 400 MPV (fL) Date Value 12/23/2023 11.5 Iron Date Value Ref Range Status 12/23/2023 17 (L) 41 - 186 ug/dL Final TIBC Date Value Ref Range Status 12/23/2023 428 (H) 232 - 386 ug/dL Final Ferritin Date Value Ref Range Status 12/23/2023 9.3 (L) 14.7 - 205.1 ng/mL Final Folate Date Value Ref Range Status 08/24/2023 6.9 >4.7 ng/mL Final Vitamin B12 Date Value Ref Range Status 12/23/2023 321 232 - 1,245 pg/mL Final Transferrin Saturation Date Value Ref Range Status 12/23/2023 4.0 (L) 15.0 - 57.0 % Final Assess for the need to augment a patient s natural red blood cell production: - Blood transfusion avoidance - Iron depletion Recommendations according to Blood Management patient care guidelines: - Other: Venofer 200 gm IV x 5 total iron deficit using Ganzoni equation = 1248 mg (wt 86 kg/goal hgb 12 g/dL) Clinical information is sent to a provider for review and evaluation for treatment. [facility] Telephone encounter Note * Telephone Encounter - Anisha Norman - 12/24/2023 4:15 PM EDT Please review and advise [facility] Work Phone: 1(581) 433-929210-25-2024 Miscellaneous Notes* Telephone Encounter - Anisha Norman - 12/24/2023 4:15 PM EDT Please review and advise * Telephone Encounter - Fern Lira RN - 12/24/2023 3:38 PM EDT Pt notified.Pt states she stopped bleeding since surgery (12/02/2023). Advised hematology will be incontact with her to get IV iron infusions set up. Advised if she were to develop any shortness of breath/ chest pain to go to ER. Please file pended Blood management referral order and will route to hematology. Fern Lira RN * Telephone Encounter - Emily Plunkett MD - 12/24/2023 3:08 PM EDT Notify patient her iron levels are low, she is still very anemic and I would recommend a referral to blood management team for IV fe infusions. Her FSH is low indicating she is not menopausal. If shecontinues to have regular periods we should consider putting her on something to slow them or lighten bleeding. Reasonable to see how she does the next month or so and keep annual on 01/05. Emily Plunkett MD * Telephone Encounter - Delmy Mcclain - 12/24/2023 1:38 PM EDT Patient is requesting a return call to review lab result. [facility] in [facility] encounter[facility] Telephone encounter Note * Telephone Encounter - Fern Lira RN - 12/24/2023 3:38 PM EDT Pt notified.Pt states she stopped bleeding since surgery (12/02/2023). Advised hematology will be incontact with her to get IV iron infusions set up. Advised if she were to develop any shortness of breath/ chest pain to go to ER. Please file pended Blood management referral order and will route to hematology. Fern Lira RN [facility]10-25-2024 Telephone encounter Note* Telephone Encounter - Emily Plunkett MD - 12/24/2023 3:08 PM EDT Notify patient her iron levels are low, she is still very anemic and I would recommend a referral to blood management team for IV fe infusions. Her FSH is low indicating she is not menopausal. If shecontinues to have regular periods we should consider putting her on something to slow them or lighten bleeding. Reasonable to see how she does the next month or so and keep annual on 01/05. Emily Plunkett MD [facility]10-25-2024 Telephone encounter Note* Telephone Encounter - Delmy Mcclain - 12/24/2023 1:38 PM EDT Patient is requesting a return call to review lab result. [facility]10-24-2024 NoteHNO ID: [id number] Author: EMILY PLUNKETT MD Service: ? Author Type: Physician Type: Progress Notes Filed: 12/23/2023 15:46 Note Text: Lakeisha Topete is a 53 year old female who presents for problem visit for f/u AUB, prolapsing uterine fibroid. HPI: 53 YOF notes she had a hysteroscopy DANDC w/ prolapsing polyp removal on 12/03/23 at [facility]. Pathology benign. Minimal bleeding since then. Still some low pelvic pain/cramping. No abnormal discharge. No fever or chills. S/p endometrial ablation but has always had bleeding after it. OB History T0 L5 SAB1 IAB0 Ectopic0 Multiple0 Live Births0 [employer] History LMP: 11/22/2023 (Approximate), Having periods Age at Menarche: Age at First : Age at Menopause: [employer] History Comments: Sexual Activity: Yes; Male Contraception: Tubal Ligation PAST MEDICAL HISTORY Diagnosis Date Allergic rhinitis, cause unspecified Depression 09/26/2010 Diabetes mellitus (HCC) Morbid obesity (HCC) 07/24/2011 Other combinations of endocrine dysfunction Sprain of neck Unspecified asthma(493.90) PAST SURGICAL HISTORY Procedure Laterality Date ENDOMETRIAL BIOPSY 11/17/2023 HYSTEROSCOPY, DIAGNOSTIC (SEPARATE 12/03/2023 DANDC, Myomectomy LAPAROSCOPIC APPENDECTOMY 09/20/2009 LAPS SURG CHOLECYSTECTOMY W/CHOLANGIOGRAPHY IOC - non draining LIG/TRNSXJ FLP TUBE ABDL/VAG APPR UNI/BI Tubal ligation TONSILLECTOMY PRIMARY/SECONDARY Tonsillectomy FAMILY HISTORY Problem Relation Age of Onset Cancer Mother breast cancer Diabetes Mother COPD Father Coronary Artery Disease Father of SD Breast Cancer Sister Heart Brother No Known Problems Maternal Grandmother No Known Problems Maternal Grandfather No Known Problems Paternal Grandmother No Known Problems Paternal Grandfather No Known Problems Daughter No Known Problems Daughter No Known Problems Daughter No Known Problems Daughter Adopted No Known Problems Son No Known Problems Son Social History Tobacco Use Smoking status: Never Smokeless tobacco: Never Tobacco comments: VAPE Vaping Use Vaping status: Some Days Substances: CBD Substance Use Topics Alcohol use: Not Currently Drug use: Never Current Outpatient Medications Medication Sig EPINEPHrine (EPIPEN) 0.3 mg/0.3 mL auto-injector DIRECTED as needed for anaphylaxis TRUE METRIX GLUCOSE TEST STRIP test strip USE TO TEST BLOOD GLUCOSE 3 TIMES DAILY. oxybutynin XL (DITROPAN XL) 5 mg 24 hr tablet once daily. Zplmpwsy-Dq-Ndv-Fe-FA tab Take 1 tablet by mouth once daily. norethindrone (AYGESTIN) 5 mg tablet Take 1 tablet by mouth as directed. one tablet daily or BID as needed to slow vaginal bleeding acetaminophen (TYLENOL EXTRA STRENGTH) 500 mg tablet Take 1 tablet by mouth every 8 hours as needed for pain. ibuprofen (MOTRIN) 600 mg tablet Take 1 tablet by mouth every 6 hours as needed for pain. FOR PAIN. ferrous sulfate (SLOW FE) 137 mg (45 mg iron) TbER Take 1 tablet by mouth once daily. albuterol HFA (PROVENTIL HFA, VENTOLIN HFA) 90 mcg/actuation inhaler Inhale 2 Puffs as instructed every 4 hours as needed for wheezing/shortness of breath. simvastatin (ZOCOR) 80 mg tablet Take 1 tablet by mouth once daily. omeprazole (PRILOSEC) 40 mg capsule Take by mouth. glipiZIDE (GLUCOTROL XL) 5 mg 24 hr tablet Take 1 tablet by mouth once daily. ARIPiprazole (ABILIFY) 5 mg tablet Take 1 tablet by mouth once daily. For 30 days FLUoxetine (PROZAC) 20 mg capsule Take 1 capsule by mouth once daily. losartan (COZAAR) 25 mg tablet Take 1 tablet by mouth once daily. For 30 days metFORMIN (GLUCOPHAGE) 500 mg tablet Take 500 mg by mouth twice daily. Ipratropium (ATROVENT) 17 mcg/actuation inhaler Inhale 2 Puffs as instructed every 6 hours. fluticasone (FLONASE) 50 mcg/actuation nasal spray Use 1 [place] in each nostril once daily. mometasone-formoterol (DULERA) 100-5 mcg/actuation inhaler Inhale 2 Puffs as instructed twice daily. albuterol HFA (PROAIR HFA) 90 mcg/actuation inhaler Inhale 2 Puffs as instructed every 4 hours as needed for Wheezing/Shortness of Breath. fluticasone (FLONASE) 50 mcg/actuation nasal spray Use 2 Sprays in each nostril once daily. Rinse mouth after use. (Patient not taking: Reported on 12/23/2023) ibuprofen (MOTRIN) 600 mg tablet Take 1 tablet by mouth every 6 hours as needed for pain. (Patient not taking: Reported on 12/23/2023) No current facility-administered medications for this visit. Allergies As of Date: 12/23/2023 Allergen Noted Reaction PENICILLINS 08/06/2005 Fully Assessed 12/23/2023 . Expanded ROS: denies hot flashes Allergies and current medication updated:Yes SENSITIVE EXAM: Sensitive exam not performed. EXAM: BP 122/78 Wt 189 lb (85.7kg) LMP 11/22/2023 GENERAL: pleasant, female in no apparent distress ASSESSMENT AND PLAN: Assessment AND Plan Iron deficiency anemia due to chronic blood loss Orders: C (more content not included)...[facility]10-24-2024 History of Present illness Narrative* Emily Plunkett MD - 12/23/2023 3:05 PM EDT Lakeisha Topete is a 53 year old female who presents for problem visit for f/u AUB, prolapsing uterine fibroid. HPI: 53 YOF notes she had a hysteroscopy D&C w/ prolapsing polyp removal on 12/03/23 at [facility]. Pathology benign. Minimal bleeding since then. Still some low pelvic pain/cramping. No abnormal discharge. No fever or chills. S/p endometrial ablation but has always had bleeding after it. OB History T0 L5 SAB1 IAB0 Ectopic0 Multiple0 Live Births0 [employer] History LMP: 11/22/2023 (Approximate), Having periods Age at Menarche: Age at First : Age at Menopause: [employer] History Comments: Sexual Activity: Yes; Male Contraception: Tubal Ligation PAST MEDICAL HISTORY Diagnosis Date Allergic rhinitis, cause unspecified Depression 09/26/2010 Diabetes mellitus (HCC) Morbid obesity (HCC) 07/24/2011 Other combinations of endocrine dysfunction Sprain of neck Unspecified asthma(493.90) PAST SURGICAL HISTORY Procedure Laterality Date ENDOMETRIAL BIOPSY 11/17/2023 HYSTEROSCOPY, DIAGNOSTIC (SEPARATE 12/03/2023 D&C, Myomectomy LAPAROSCOPIC APPENDECTOMY 09/20/2009 LAPS SURG CHOLECYSTECTOMY W/CHOLANGIOGRAPHY IOC - non draining LIG/TRNSXJ FLP TUBE ABDL/VAG APPR UNI/BI Tubal ligation TONSILLECTOMY PRIMARY/SECONDARY <AGE 12 Tonsillectomy FAMILY HISTORY Problem Relation Age of Onset Cancer Mother breast cancer Diabetes Mother COPD Father Coronary Artery Disease Father of SD Breast Cancer Sister Heart Brother No Known Problems Maternal Grandmother No Known Problems Maternal Grandfather No Known Problems Paternal Grandmother No Known Problems Paternal Grandfather No Known Problems Daughter No Known Problems Daughter No Known Problems Daughter No Known Problems Daughter Adopted No Known Problems Son No Known Problems Son Social History Tobacco Use Smoking status: Never Smokeless tobacco: Never Tobacco comments: VAPE Vaping Use Vaping status: Some Days Substances: CBD Substance Use Topics Alcohol use: Not Currently Drug use: Never Current Outpatient Medications Medication Sig EPINEPHrine (EPIPEN) 0.3 mg/0.3 mL auto-injector DIRECTED as needed for anaphylaxis TRUE METRIX GLUCOSE TEST STRIP test strip USE TO TEST BLOOD GLUCOSE 3 TIMES DAILY. oxybutynin XL (DITROPAN XL) 5 mg 24 hr tablet once daily. Ucrditsj-Dq-Gzz-Fe-FA tab Take 1 tablet by mouth once daily. norethindrone (AYGESTIN) 5 mg tablet Take 1 tablet by mouth as directed. one tablet daily or BID asneeded to slow vaginal bleeding acetaminophen (TYLENOL EXTRA STRENGTH) 500 mg tablet Take 1 tablet by mouth every 8 hours as neededfor pain. ibuprofen (MOTRIN) 600 mg tablet Take 1 tablet by mouth every 6 hours as needed for pain. FOR PAIN. ferrous sulfate (SLOW FE) 137 mg (45 mg iron) TbER Take 1 tablet by mouth once daily. albuterol HFA (PROVENTIL HFA, VENTOLIN HFA) 90 mcg/actuation inhaler Inhale 2 Puffs as instructed every 4 hours as needed for wheezing/shortness of breath. simvastatin (ZOCOR) 80 mg tablet Take 1 tablet by mouth once daily. omeprazole (PRILOSEC) 40 mg capsule Take by mouth. glipiZIDE (GLUCOTROL XL) 5 mg 24 hr tablet Take 1 tablet by mouth once daily. ARIPiprazole (ABILIFY) 5 mg tablet Take 1 tablet by mouth once daily. For 30 days FLUoxetine (PROZAC) 20 mg capsule Take 1 capsule by mouth once daily. losartan (COZAAR) 25 mg tablet Take 1 tablet by mouth once daily. For 30 days metFORMIN (GLUCOPHAGE) 500 mg tablet Take 500 mg by mouth twice daily. Ipratropium (ATROVENT) 17 mcg/actuation inhaler Inhale 2 Puffs as instructed every 6 hours. fluticasone (FLONASE) 50 mcg/actuation nasal spray Use 1 [place] in each nostril once daily. mometasone-formoterol (DULERA) 100-5 mcg/actuation inhaler Inhale 2 Puffs as instructed twice daily. albuterol HFA (PROAIR HFA) 90 mcg/actuation inhaler Inhale 2 Puffs as instructed every 4 hours as needed for Wheezing/Shortness of Breath. fluticasone (FLONASE) 50 mcg/actuation nasal spray Use 2 Sprays in each nostril once daily. Rinse mouth after use. (Patient not taking: Reported on 12/23/2023) ibuprofen (MOTRIN) 600 mg tablet Take 1 tablet by mouth every 6 hours as needed for pain. (Patient not taking: Reported on 12/23/2023) No current facility-administered medications for this visit. Allergies As of Date: 12/23/2023 Allergen Noted Reaction PENICILLINS 08/06/2005 Fully Assessed 12/23/2023 . Expanded ROS: denies hot flashes Allergies and current medication updated:Yes SENSITIVE EXAM: Sensitive exam not performed. EXAM: BP 122/78 Wt 189 lb (85.7kg) LMP 11/22/2023 GENERAL: pleasant, female in no apparent distress ASSESSMENT AND PLAN: Assessment & Plan Iron deficiency anemia due to chronic blood loss Orders: COMPLETE BLOOD COUNT; Future FERRITIN; Future IRON AND TIBC; Future VITAMIN B12; Future FOLLICLE STIMULATING HORMONE; Future s/p hysteroscopy w/ myomectomy. Check FSH to help gauge menopausal status. Still w/ pelvic pain, uncertain of etiology. Had pain even before ablation. Has never had colonoscopy. Had kidney stone noted at [facility]. recommend f/u w/ PCP for this. If still low fe levels, consider IV fe treatment. Cont. pNV for now Schedule annual/mammo Emily Plunkett MD [facility] Tele[facility] encounter Note * Telephone Encounter - Olive Florian MA - 12/16/2023 1:10 PM EDT See MyChart encounter Olive Florian MA [facility] Miscellaneous Notes* Telephone Encounter - Olive Florian MA - 12/16/2023 1:10 PM EDT See MyChart encounter Olive Florian MA * Telephone Encounter - Charlene Soria - 12/16/2023 12:44 PM EDT Pt would like to know if Desire will fill out another form for the [employer] to keep power from being turned off. Due to medical procedures pt is not back to work. Please advise pt Thank you documented in [facility] encounterWestern [facility] Telephone encounter Note * Telephone Encounter - Charlene Soria - 12/16/2023 12:44 PM EDT Pt would like to know if Desire will fill out another form for the [employer] to keep power from being turned off. Due to medical procedures pt is not back to work. Please advise pt Thank you [facility] Telephone encounter Note* Telephone Encounter - Fern Lira RN - 12/15/2023 3:24 PM EDT [employer] message sent to Pt. Fern Lira RN [facility]10-[facility]24 Miscellaneous Notes* Telephone Encounter - Fern Lira RN - 12/15/2023 3:24 PM EDT [employer] message sent to Pt. Fern Lira RN * Telephone Encounter - Taya Del Angel MD - 12/15/2023 2:58 PM EDT Please notify patient that her pathology was benign from Myomectomy, D&C. documented in this encounterWestern [facility]10-[facility]24 Telephone encounter Note * Telephone Encounter - Taya Del Angel MD - 12/15/2023 2:58 PM EDT Please notify patient that her pathology was benign from Myomectomy, D&C. [facility] Telephone encounter Note* Telephone Encounter - Susy Mac MA - 12/15/2023 11:50 AM EDT Patient left message on voicemail requesting delilah to call her back. Susy Mac MA [facility] Miscellaneous Notes* Telephone Encounter - Susy Mac MA - 12/15/2023 11:50 AM EDT Patient left message on voicemail requesting delilah to call her back. Susy Mac MA documented in this encounterWestern [facility] Hospital10-12-2024 NoteHNO ID: [id number] Author: PASQUALE HOLLINS PA Service: ? Author Type: Physician Blender Helper Type: Progress Notes Filed: 12/11/2023 11:32 Note Text: This note was created using NoteWriter. Subjective Lakeisha Topete is a 53 year old female. HPI 53-year-old female presents for nasal congestion, sore throat x 1 day. Patient states yesterday started getting sore throat. She now has sinus congestion. Does not really have a cough. No fevers. No vomiting or diarrhea. Use some epzw-lah-ozjagci cough and cold medication without much improvement in symptoms. No sick contacts that she is aware of. She states she did get the flu shot last week. No other complaint. PAST MEDICAL HISTORY Diagnosis Date Allergic rhinitis, cause unspecified Depression 09/26/2010 Diabetes mellitus (HCC) Morbid obesity (HCC) 07/24/2011 Other combinations of endocrine dysfunction Sprain of neck Unspecified asthma(493.90) PAST SURGICAL HISTORY Procedure Laterality Date ENDOMETRIAL BIOPSY 11/17/2023 HYSTEROSCOPY, DIAGNOSTIC (SEPARATE 12/03/2023 DANDC, Myomectomy LAPAROSCOPIC APPENDECTOMY 09/20/2009 LAPS SURG CHOLECYSTECTOMY W/CHOLANGIOGRAPHY IOC - non draining LIG/TRNSXJ FLP TUBE ABDL/VAG APPR UNI/BI Tubal ligation TONSILLECTOMY PRIMARY/SECONDARY Tonsillectomy ALLERGIES Penicillins MEDICATIONS ibuprofen (MOTRIN) 600 mg tablet Take 1 tablet by mouth every 6 hours as needed for pain. Traqpfgi-Ya-Ozp-Fe-FA tab Take 1 tablet by mouth once daily. norethindrone (AYGESTIN) 5 mg tablet Take 1 tablet by mouth as directed. one tablet daily or BID as needed to slow vaginal bleeding acetaminophen (TYLENOL EXTRA STRENGTH) 500 mg tablet Take 1 tablet by mouth every 8 hours as needed for pain. ibuprofen (MOTRIN) 600 mg tablet Take 1 tablet by mouth every 6 hours as needed for pain. FOR PAIN. ferrous sulfate (SLOW FE) 137 mg (45 mg iron) TbER Take 1 tablet by mouth once daily. albuterol HFA (PROVENTIL HFA, VENTOLIN HFA) 90 mcg/actuation inhaler Inhale 2 Puffs as instructed every 4 hours as needed for wheezing/shortness of breath. simvastatin (ZOCOR) 80 mg tablet Take 1 tablet by mouth once daily. omeprazole (PRILOSEC) 40 mg capsule Take by mouth. glipiZIDE (GLUCOTROL XL) 5 mg 24 hr tablet Take 1 tablet by mouth once daily. ARIPiprazole (ABILIFY) 5 mg tablet Take 1 tablet by mouth once daily. For 30 days FLUoxetine (PROZAC) 20 mg capsule Take 1 capsule by mouth once daily. losartan (COZAAR) 25 mg tablet Take 1 tablet by mouth once daily. For 30 days metFORMIN (GLUCOPHAGE) 500 mg tablet Take 500 mg by mouth twice daily. Ipratropium (ATROVENT) 17 mcg/actuation inhaler Inhale 2 Puffs as instructed every 6 hours. fluticasone (FLONASE) 50 mcg/actuation nasal spray Use 1 [place] in each nostril once daily. mometasone-formoterol (DULERA) 100-5 mcg/actuation inhaler Inhale 2 Puffs as instructed twice daily. albuterol HFA (PROAIR HFA) 90 mcg/actuation inhaler Inhale 2 Puffs as instructed every 4 hours as needed for Wheezing/Shortness of Breath. fluticasone (FLONASE) 50 mcg/actuation nasal spray Use 2 Sprays in each nostril once daily. Rinse mouth after use. FAMILY HISTORY Problem Relation Age of Onset COPD Father Coronary Artery Disease Father of [place] Cancer Mother breast cancer Diabetes Mother Heart [...] Use Smoking status: Never Smokeless tobacco: Never Tobacco comments: VAPE Vaping Use Vaping status: Some Days Substance Use Topics Alcohol use: Not Currently Drug use: Never Review of Systems Constitutional: Negative for chills and fever. HENT: Positive for congestion and sore throat. Negative for ear pain. Respiratory: Negative for cough and shortness of breath. Cardiovascular: Negative for chest pain. Gastrointestinal: Negative for diarrhea and vomiting. Objective BP 122/80 Pulse 90 Temp 36.4 ?C (97.5 ?F) Resp 16 Wt 86.2 kg (190 lb 0.6 oz) LMP 01/25/2023 (Approximate) SpO2 99% BMI 39.72 kg/m? Physical Exam Vitals and nursing note reviewed. Constitutional: General: She is not in acute distress. Appearance: Normal appearance. She is not toxic-appearing. HENT: Right Ear: Tympanic membrane and ear canal normal. Left Ear: Tympanic membrane and ear canal normal. Nose: Congestion present. Right Sinus: Maxillary sinus tenderness present. Left Sinus: Maxillary sinus tenderness present. Mouth/Throat: Mouth: Mucous membranes are moist. Eyes: Conjunctiva/sclera: Conjunctivae normal. Cardiovascular: Rate and Rhythm: Normal rate and regular rhythm. Pul (more content not included)...[facility]10-12-2024 NoteHNO ID: [id number] Author: PASQUALE HOLLINS PA Service: ? Author Type: Physician Blender Helper Type: Progress Notes Filed: 12/11/2023 11:32 Note Text: This note was created using ImaCor. Subjective Lakeisha Topete is a 53 year old female. Review of Systems Objective BP 122/80 Pulse 90 Temp 36.4 ?C (97.5 ?F) Resp 16 Wt 86.2 kg (190 lb 0.6 oz) LMP 01/25/2023 (Approximate) SpO2 99% BMI 39.72 kg/m? Physical Exam Assessment [facility] Plan[facility] History of Present illness Narrative* Pasquale Hollins PA - 12/11/2023 11:30 AM EDT This note was created using Ima[employer]. Chet Topete is a 53 year old female. HPI 53-year-old female presents for nasal congestion, sore throat x 1 day. Patient states yesterdaystarted getting sore throat. She now has sinus congestion. Does not really have a cough. No fevers.No vomiting or diarrhea. Use some ifqn-uxy-aklcixl cough and cold medication without much improvement in symptoms. No sick contacts that she is aware of. She states she did get the flu shot last week. No other complaint. PAST MEDICAL HISTORY Diagnosis Date Allergic rhinitis, cause unspecified Depression 09/26/2010 Diabetes mellitus (HCC) Morbid obesity (HCC) 07/24/2011 Other combinations of endocrine dysfunction Sprain of neck Unspecified asthma(493.90) PAST SURGICAL HISTORY Procedure Laterality Date ENDOMETRIAL BIOPSY 11/17/2023 HYSTEROSCOPY, DIAGNOSTIC (SEPARATE 12/03/2023 D&C, Myomectomy LAPAROSCOPIC APPENDECTOMY 09/20/2009 LAPS SURG CHOLECYSTECTOMY W/CHOLANGIOGRAPHY IOC - non draining LIG/TRNSXJ FLP TUBE ABDL/VAG APPR UNI/BI Tubal ligation TONSILLECTOMY PRIMARY/SECONDARY <AGE 12 Tonsillectomy ALLERGIES Penicillins MEDICATIONS ibuprofen (MOTRIN) 600 mg tablet Take 1 tablet by mouth every 6 hours as needed for pain. Tkfbrcat-Ao-Eyf-Fe-FA tab Take 1 tablet by mouth once daily. norethindrone (AYGESTIN) 5 mg tablet Take 1 tablet by mouth as directed. one tablet daily or BID asneeded to slow vaginal bleeding acetaminophen (TYLENOL EXTRA STRENGTH) 500 mg tablet Take 1 tablet by mouth every 8 hours as neededfor pain. ibuprofen (MOTRIN) 600 mg tablet Take 1 tablet by mouth every 6 hours as needed for pain. FOR PAIN. ferrous sulfate (SLOW FE) 137 mg (45 mg iron) TbER Take 1 tablet by mouth once daily. albuterol HFA (PROVENTIL HFA, VENTOLIN HFA) 90 mcg/actuation inhaler Inhale 2 Puffs as instructed every 4 hours as needed for wheezing/shortness of breath. simvastatin (ZOCOR) 80 mg tablet Take 1 tablet by mouth once daily. omeprazole (PRILOSEC) 40 mg capsule Take by mouth. glipiZIDE (GLUCOTROL XL) 5 mg 24 hr tablet Take 1 tablet by mouth once daily. ARIPiprazole (ABILIFY) 5 mg tablet Take 1 tablet by mouth once daily. For 30 days FLUoxetine (PROZAC) 20 mg capsule Take 1 capsule by mouth once daily. losartan (COZAAR) 25 mg tablet Take 1 tablet by mouth once daily. For 30 days metFORMIN (GLUCOPHAGE) 500 mg tablet Take 500 mg by mouth twice daily. Ipratropium (ATROVENT) 17 mcg/actuation inhaler Inhale 2 Puffs as instructed every 6 hours. fluticasone (FLONASE) 50 mcg/actuation nasal spray Use 1 [place] in each nostril once daily. mometasone-formoterol (DULERA) 100-5 mcg/actuation inhaler Inhale 2 Puffs as instructed twice daily. albuterol HFA (PROAIR HFA) 90 mcg/actuation inhaler Inhale 2 Puffs as instructed every 4 hours as needed for Wheezing/Shortness of Breath. fluticasone (FLONASE) 50 mcg/actuation nasal spray Use 2 Sprays in each nostril once daily. Rinse mouth after use. FAMILY HISTORY Problem Relation Age of Onset COPD Father Coronary Artery Disease Father of [place] Cancer Mother breast cancer Diabetes Mother Heart [...] Use Smoking status: Never Smokeless tobacco: Never Tobacco comments: VAPE Vaping Use Vaping status: Some Days Substance Use Topics Alcohol use: Not Currently Drug use: Never Review of Systems Constitutional: Negative for chills and fever. HENT: Positive for congestion and sore throat. Negative for ear pain. Respiratory: Negative for cough and shortness of breath. Cardiovascular: Negative for chest pain. Gastrointestinal: Negative for diarrhea and vomiting. Objective BP 122/80 Pulse 90 Temp 36.4 C (97.5 F) Resp 16 Wt 86.2 kg (190 lb 0.6 oz) LMP 01/25/2023 (Approximate) SpO2 99% BMI 39.72 kg/m Physical Exam Vitals and nursing note reviewed. Constitutional: General: She is not in acute distress. Appearance: Normal appearance. She is not toxic-appearing. HENT: Right Ear: Tympanic membrane and ear canal normal. Left Ear: Tympanic membrane and ear canal normal. Nose: Congestion present. Right Sinus: Maxillary sinus tenderness present. Left Sinus: Maxillary sinus tenderness present. Mouth/Throat: Mouth: Mucous membranes are moist. Eyes: Conjunctiva/sclera: Conjunctivae normal. Cardiovascular: Rate and Rhythm: Normal rate and regular rhythm. Pulmonary: Effort: Pulmonary effort is normal. Breath sounds: Normal breath sounds. Skin: General: Skin is warm and dry. Neurological: Mental Status: She is alert. Assessment and Plan ASSESSMENT/PLAN: 1. URI, acute - ICD9: 465.9, ICD10: J06.9 - Discussed viral etiology and rationale for treatment. - Symptomatic treatment with prn analgesia - Supportive care with fluids and rest -Rx for Flonase. May continue OTC cough/cold medication as needed - COVID & INFLUENZA A/B & RSV PCR, ROUTINE Diagnosis and treatment plan were discussed and questions were answered to the patient's satisfaction. Pt acknowledged understanding of concepts and follow up plan. Specific signs and symptoms that would indicate the need for higher level of care were discussed in detail warranting prompt ER evaluation. KLEBER Myles * Pasquale Hollins PA - 12/11/2023 11:30 AM EDT This note was created using Trademarkiariter. Subjective Lakeisha Topete is a 53 year old female. Review of Systems Objective BP 122/80 Pulse 90 Temp 36.4 C (97.5 F) Resp 16 Wt 86.2 kg (190 lb 0.6 oz) LMP 01/25/2023(Approximate) SpO2 99% BMI 39.72 kg/m Physical Exam Assessment and Plan documented in [facility] encounterWestern [facility]10-[facility]24 NoteHNO ID: [id number] Author: DESIRE LANIER APRN.SUPERVISOR FRUIT GRADING Service: ? Author Type: Nurse Practitioner Type: Progress Notes Filed: 12/08/2023 19:53 Note Text: Referral placed for SW. Yes, I will fill out the form again for her.[facility]10-07-[facility]24 NoteHNO ID: [id number] Author: DELILAH MIMS LPN Service: ? Author Type: LICENSED NURSE Type: Progress Notes Filed: 12/07/2023 16:50 Note Text: TRANSITIONAL CARE MANAGEMENT (TCM) COMMUNITY MONITORING PROGRAM - [place] Provider Action/FYI: Pt would like referral for tobacco farmworker as she is having a hard time paying for food, housing and electric at this time. Pt does not have transportation. Pt is also asking if Desire will be able to okay another extension on her Electric bill. If so she will have them fax the form over. SUMMARY: Pt discharged from [place] on 12/03/2023. Admitted for: Fibroid uterine, chronic blood loss/anemia, abd vaginal bleeding Patient seen Inpatient CATHY Visit? No. Patient seen ICARE Program? No. Contact made with patient: No - next outreach attempt will be on next business day Hi my name is Delilah Mmis LPN and I am calling from the [facility] on behalf of your PCP, Desire Lanier APRN.SUPERVISOR FRUIT GRADING I understand you were recently in the hospital so I am calling to check in with you to ensure you are feeling well now that you?re home. Do you mind if I ask you a few questions related to your hospital stay and well-being Yes Contact with patient post discharge, spoke to patient. Patient identified by name and . Do you feel your health is BETTER, WORSE, or the SAME since leaving the hospital? Same ACTION TAKEN: Patient indicated symptoms are better or same, no action required. Continue outreach. N/A MEDICATIONS: Many patients have questions or concerns about their medications once they are home. Do you have any questions about taking your medications or which medication you should be on? No Do you need any medication refills at this time, including any of the medications you might take only when needed? No ACTION TAKEN: No action required For RNs or Pharmacy completing outreach ONLY, was a medication review completed? No SOCIAL: We would like to make sure you have what you need so that your basics needs are met - including your personal safety. HEALTH LEADS SCREENING TOOL QUESTIONS: Do you often feel you lack companionship? No Do you ever need help reading or understanding hospital materials? NO In the last 12 months, have you changed how you take medications to save money? No In the past 12 months, has lack of transportation kept you from medical appointments, work or getting things you need like food, or supplies? Yes In the last 12 months, did you ever eat less than you felt you should because there wasn't enough money for food? Yes During the winter, do you anticipate having a problem paying your heating bill? Yes In the next 2 months, are you worried you might not have stable housing? Yes Would you like to speak with a social work steam station supervisor to help give you support for any of these needs? Yes It can be normal to feel anxious or down during a time like this. Would you like to talk to a mental health professional about how you have been feeling? No ACTION TAKEN: Yes - patient would like to speak to a Primary Care Marble Setter Helper - Informed patient that a Primary Care Marble Setter Helper will be in contact to discuss further. Routed [facility] PRIMARY CARE SOCIAL WORK POOL [[phone]], [facility] Social Work Referral Pool [[id number]] [facility] Social Work Referral pool [[id number]] and indicated in the FYI box. DISCHARGE INTRUCTIONS: Your discharge instructions / After Visit Summary (AVS) are important in guiding you through the recovery process. Do you have any questions related to your discharge instructions? No Do you have all the necessary equipment and supplies at home? No ACTION TAKEN: No action required WRAP AROUND SERVICES: Marble Setter Helper Referral Patient educated on importance of primary care provider follow up visit as well as specialty provider follow up visits as indicated. Inform the patient that if they have any questions or concerns prior to that appointment, to call their Primary Care Provider 's office right away. Primary care provider first education provided. I would like to help you schedule a hospital follow-up virtual or telephone visit with your PCP. ACTION TAKEN: [facility] Primary Care Provider Visit Scheduled: Pt is scheduled for 03/02/2024. Per pt she can not come in earlier as she will not have a ride. Your doctor would like us to remind you of the recommendations regarding the coronavirus (Covid19) outbreak: Avoid public places as much as possible. Avoid close contact (within 6 feet) with others you don't live with, especially if they are sick. Stay home if you are sick. Wash your hands regularly for at least 20 seconds with soap and water. Wear a cloth mask in public places to help reduce community spread. Do not go to your Doctor's office unless instructed to do so. For any non-emergency symptoms, call your Doctor's office to get instructions on how to manage (we might arthur (more content not included)...[facility] 12-06-2023 History of Present illness Narrative* Delilah Mims LPN - 12/06/2023 4:40 PM EDT TRANSITIONAL CARE MANAGEMENT (TCM) COMMUNITY MONITORING PROGRAM - [place] Provider Action/FYI: Pt would like referral for tobacco farmworker as she is having a hard time paying for food, housing and electric at this time. Pt does not have transportation. Pt is also asking if Desire will be able to okay another extension on her Electric bill. If so shewill have them fax the form over. SUMMARY: Pt discharged from [place] on 12/03/2023. Admitted for: Fibroid uterine, chronic blood loss/anemia, abd vaginal bleeding Patient seen Inpatient CATHY Visit? No. Patient seen ICARE Program? No. Contact made with patient: No - next outreach attempt will be on next Hi my name is Delilah Mims LPN and I am calling from the [facility] on behalf of your PCP, Desire Lanier APRN.SUPERVISOR FRUIT GRADING I understand you were recently in the hospital so I am calling to check in with you to ensure you are feeling well now that you re home. Do you mind if I ask you a few questions related to your hospital stay and well-being Yes Contact with patient post discharge, spoke to patient. Patient identified by name and . Do you feel your health is BETTER, WORSE, or the SAME since leaving the hospital? Same ACTION TAKEN: Patient indicated symptoms are better or same, no action required. Continue outreach. N/A MEDICATIONS: Many patients have questions or concerns about their medications once they are home. Do you have any questions about taking your medications or which medication you should be on? No Do you need any medication refills at this time, including any of the medications you might take only when needed? No ACTION TAKEN: No action required For RNs or Pharmacy completing outreach ONLY, was a medication review completed? No SOCIAL: We would like to make sure you have what you need so that your basics needs are met - including your personal safety. HEALTH LEADS SCREENING TOOL QUESTIONS: Do you often feel you lack companionship? No Do you ever need help reading or understanding hospital materials? NO In the last 12 months, have you changed how you take medications to save money? No In the past 12 months, has lack of transportation kept you from medical appointments, work or getting things you need like food, or supplies? Yes In the last 12 months, did you ever eat less than you felt you should because there wasn't enough money for food? Yes During the winter, do you anticipate having a problem paying your heating bill? Yes In the next 2 months, are you worried you might not have stable housing? Yes Would you like to speak with a social work steam station supervisor to help give you support for any of these needs? Yes It can be normal to feel anxious or down during a time like this. Would you like to talk to a mental health professional about how you have been feeling? No ACTION TAKEN: Yes - patient would like to speak to a Primary Care Marble Setter Helper - Informed patient that a PrimaryCare Marble Setter Helper will be in contact to discuss further. Routed [facility] PRIMARY CARE SOCIAL WORK POOL [[phone]], [facility] Social Work Referral Pool [[phone]] [facility] Social Work Referral pool [[phone]] and indicated in the FYI box. DISCHARGE INTRUCTIONS: Your discharge instructions / After Visit Summary (AVS) are important in guiding you through the recovery process. Do you have any questions related to your discharge instructions? No Do you have all the necessary equipment and supplies at home? No ACTION TAKEN: No action required WRAP AROUND SERVICES: Marble Setter Helper Referral Patient educated on importance of primary care provider follow up visit as well as specialty provider follow up visits as indicated. Inform the patient that if they have any questions or concerns prior to that appointment, to call their Primary Care Provider 's office right away. Primary care provider first education provided. I would like to help you schedule a hospital follow-up virtual or telephone visit with your PCP. ACTION TAKEN: [facility] Primary Care Provider Visit Scheduled: Pt is scheduled for 03/02/2024. Per pt she can not come inearlier as she will not have a ride. Your doctor would like us to remind you of the recommendations regarding the coronavirus (Covid19) outbreak: Avoid public places as much as possible. Avoid close contact (within 6 feet) with others you don't live with, especially if they are sick. Stay home if you are sick. Wash your hands regularly for at least 20 seconds with soap and water. Wear a cloth mask in public places to help reduce community spread. Do not go to your Doctor's office unless instructed to do so. For any non- emergency symptoms, call your Doctor's office to get instructions on how to manage (we might recommend a telephone or virtualvisit). For emergency symptoms, proceed to Emergency Department as usual but inform them of cough and fever symptoms SKY if present (or call on the way if possible). documented in this encounterWestern [facility] Telephone encounter Note * Telephone Encounter - Nya Noguera RN - 12/06/2023 3:01 PM EDT Left message for patient to call office. See below. RX for Ibuprofen 600 mg sent to her pharmacy. Nya Noguera RN [facility]10-07-[facility]24 Miscellaneous Notes* Telephone Encounter - Nya Noguera RN - 12/06/2023 3:01 PM EDT Left message for patient to call office. See below. RX for Ibuprofen 600 mg sent to her pharmacy. Nya Noguera RN * Telephone Encounter - Taya Del Angel MD - 12/06/2023 2:25 PM EDT She should not take that much. She should alternate - take ibuprofen every 6 and tylenol every 6 soevery 3 hours she should take something. * Telephone Encounter - Nya Noguera RN - 12/06/2023 2:21 PM EDT Patient notified. States she does want the higher dose of Ibuprofen. She took x2 Ibuprofen 800 MG together right before work yesterday and it didn't help. Stressed to her that this was double the recommended dose. She only has 2 more tablets left and would like a new RX. Has tried using heat. Does not have Tylenol XS at home. Nya Noguera RN * Telephone Encounter - Taya Del Angel MD - 12/06/2023 2:09 PM EDT Would have her alternate between tylenol and ibuprofen. Happy to call in higher strength ibuprofen.Can also use heating pad. * Telephone Encounter - Yara Charles RN - 12/06/2023 1:23 PM EDT Patient had hysteroscopy, D&C, myomectomy on 12/03/23. Calling regarding post op pain she has been having. Stated that it is sharp constant pains all over pelvis. Not worse on one side vs the other. Stated that ibuprofen and tylenol do not help at all. Rating 5-6/10on pains scale today. She saidlast night it was so severe she almost went back to ER. 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 No fever or other symptoms. Missed work on 12/03 and could only work two hours yesterday d/t the pain. Today she is supposed to work 3pm-9pm. Please advise. Yara Charles RN [facility] Telephone encounter Note * Telephone Encounter - Taya Del Angel MD - 12/06/2023 2:25 PM EDT She should not take that much. She should alternate - take ibuprofen every 6 and tylenol every 6 soevery 3 hours she should take something. [facility]10-07-2024 Telephone encounter Note* Telephone Encounter - Nya Noguera RN - 12/06/2023 2:21 PM EDT Patient notified. States she does want the higher dose of Ibuprofen. She took x2 Ibuprofen 800 MG together right before work yesterday and it didn't help. Stressed to her that this was double the recommended dose. She only has 2 more tablets left and would like a new RX. Has tried using heat. Does not have Tylenol XS at home. Nya Noguera RN [facility] Telephone encounter Note* Telephone Encounter - Taya Del Angel MD - 12/06/2023 2:09 PM EDT Would have her alternate between tylenol and ibuprofen. Happy to call in higher strength ibuprofen.Can also use heating pad. [facility]-07[facility] Telephone encounter Note* Telephone Encounter - Yara Charles RN - 12/06/2023 1:23 PM EDT Patient had hysteroscopy, D&C, myomectomy on 12/03/23. Calling regarding post op pain she has been having. Stated that it is sharp constant pains all over pelvis. Not worse on one side vs the other. Stated that ibuprofen and tylenol do not help at all. Rating 5-6/10on pains scale today. She saidlast night it was so severe she almost went back to ER. 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 No fever or other symptoms. Missed work on 12/03 and could only work two hours yesterday d/t the pain. Today she is supposed to work 3pm-9pm. Please advise. Yara Charles RN [facility]10-07-[facility]24 NotePatient Outreach (AGINTMLW) LAKEISHA TOPETE ([id number]) 1970 F Date Time Provider Department 12/06/23 DELILAH MIMS During your visit today, we recorded the following information about you: Delilah Mims LPN 12/07/2023 4:50 PM Signed TRANSITIONAL CARE MANAGEMENT (TCM) COMMUNITY MONITORING PROGRAM - EFREN Provider Action/FYI: Pt would like referral for tobacco farmworker as she is having a hard time paying for food, housing and electric at this time. Pt does not have transportation. Pt is also asking if Desire will be able to okay another extension on her Electric bill. If so she will have them fax the form over. SUMMARY: Pt discharged from [facility] on 12/03/2023. Admitted for: Fibroid uterine, chronic blood loss/anemia, abd vaginal bleeding Patient seen Inpatient [facility] Visit? No. Patient seen [facility] Program? No. Contact made with patient: No - next outreach attempt will be on next business Hi my name is Delilah Mims LPN and I am calling from the [facility] [place] [facility] on behalf of your PCP, Desire Lanier APRN.SUPERVISOR FRUIT GRADING I understand you were recently in the hospital so I am calling to check in with you to ensure you are feeling well now that you?re home. Do you mind if I ask you a few questions related to your hospital stay and well-being Yes Contact with patient post discharge, spoke to patient. Patient identified by name and . Do you feel your health is BETTER, WORSE, or the SAME since leaving the hospital? Same ACTION TAKEN: Patient indicated symptoms are better or same, no action required. Continue outreach. N/A MEDICATIONS: Many patients have questions or concerns about their medications once they are home. Do you have any questions about taking your medications or which medication you should be on? No Do you need any medication refills at this time, including any of the medications you might take only when needed? No ACTION TAKEN: No action required For RNs or Pharmacy completing outreach ONLY, was a medication review completed? No SOCIAL: We would like to make sure you have what you need so that your basics needs are met - including your personal safety. HEALTH LEADS SCREENING TOOL QUESTIONS: Do you often feel you lack companionship? No Do you ever need help reading or understanding hospital materials? NO In the last 12 months, have you changed how you take medications to save money? No In the past 12 months, has lack of transportation kept you from medical appointments, work or getting things you need like food, or supplies? Yes In the last 12 months, did you ever eat less than you felt you should because there wasn't enough money for food? Yes During the winter, do you anticipate having a problem paying your heating bill? Yes In the next 2 months, are you worried you might not have stable housing? Yes Would you like to speak with a social work steam station supervisor to help give you support for any of these needs? Yes It can be normal to feel anxious or down during a time like this. Would you like to talk to a mental health professional about how you have been feeling? No ACTION TAKEN: Yes - patient would like to speak to a Primary Care Marble Setter Helper - Informed patient that a Primary Care Marble Setter Helper will be in contact to discuss further. Routed [facility] SOCIAL WORK POOL [[phone]], [facility] Social Work Referral Pool [[id number]] [facility] Social Work Referral pool [[id number]] and indicated in the FYI box. DISCHARGE INTRUCTIONS: Your discharge instructions / After Visit Summary (AVS) are important in guiding you through the recovery process. Do you have any questions related to your discharge instructions? No Do you have all the necessary equipment and supplies at home? No ACTION TAKEN: No action required WRAP AROUND SERVICES: Marble Setter Helper Referral Patient educated on importance of primary care provider follow up visit as well as specialty provider follow up visits as indicated. Inform the patient that if they have any questions or concerns prior to that appointment, to call their Primary Care Provider 's office right away. Primary care provider first education provided. I would like to help you schedule a hospital follow-up virtual or telephone visit with your PCP. ACTION TAKEN: [facility] Primary Care Provider Visit Scheduled: Pt is scheduled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 Medication Sig Dispense Refill ferrous sulfate (SLOW FE) 137 mg (45 mg iron) TbER Take 1 tablet by mouth once daily. 30 tablet 3 albuterol HFA (PROVENTIL HFA, VENTOLIN HFA) 90 mcg/actuation inhaler Inhale 2 Puffs as instructed every 4 hours as needed for wheezing/shortness of breath. 8 g 0 simvastatin (ZOCOR) 80 mg tablet Take 1 tablet by mouth once daily. 90 tablet 1 omeprazole (PRILOSEC) 40 mg capsule Take by mouth. glipiZIDE (GLUCOTROL XL) 5 mg 24 hr tablet Take 1 tablet by mouth once daily. ARIPiprazole (ABILIFY) 5 mg tablet Take 1 tablet by mouth once daily. For 30 days 30 tablet 0 FLUoxetine (PROZAC) 20 mg capsule Take 1 capsule by mouth once daily. 30 capsule 12 losartan (COZAAR) 25 mg tablet Take 1 tablet by mouth once daily. For 30 days 30 tablet 2 metFORMIN (GLUCOPHAGE) 500 mg tablet Take 500 mg by mouth twice daily. Ipratropium (ATROVENT) 17 mcg/actuation inhaler Inhale 2 Puffs as instructed every 6 hours. 1 Inhaler 11 fluticasone (FLONASE) 50 mcg/actuation nasal spray Use 1 [place] in each nostril once daily. 1 [id number] mometasone-formoterol (DULERA) 100-5 mcg/actuation inhaler Inhale 2 Puffs as instructed twice daily. 1 Inhaler 11 albuterol HFA (PROAIR HFA) 90 mcg/actuation inhaler Inhale 2 Puffs as instructed every 4 hours as needed for Wheezing/Shortness of Breath. 1 Inhaler 2 Amjxxmox-Iy-Khl-Fe-FA tab Take 1 tablet by mouth once daily. 30 tablet 1 norethindrone (AYGESTIN) 5 mg tablet Take 1 tablet by mouth as directed. one tablet daily or BID asneeded to slow vaginal bleeding 35 tablet 0 acetaminophen (TYLENOL EXTRA STRENGTH) 500 mg tablet Take 1 tablet by mouth every 8 hours as neededfor pain. 90 tablet 1 ibuprofen (MOTRIN) 600 mg tablet Take 1 tablet by mouth every 6 hours as needed for pain. FOR PAIN.30 tablet 0 No current facility-administered medications for this visit. ALLERGIES: Penicillins PERSONAL HISTORY: Social History Tobacco Use Smoking status: Never Smokeless tobacco: Never Tobacco comments: VAPE Vaping Use Vaping status: Some Days Substance Use Topics Alcohol use: Not Currently Drug use: Never FAMILY HISTORY: FAMILY HISTORY Problem Relation Age of Onset COPD Father Coronary Artery Disease Father of [place] Cancer Mother breast cancer Diabetes Mother Heart Brother Breast Cancer Sister No Known Problems Maternal Grandmother No Known Problems Maternal Grandfather No Known Problems Paternal Grandmother No Known Problems Paternal Grandfather No Known Problems Son No Known Problems Son No Known Problems Daughter No Known Problems Daughter No Known Problems Daughter No Known Problems Daughter Adopted REVIEW OF SYMPTOMS: GENERAL: denies fevers or chills ENDOCRINOLOGY: has not been on steroids Cardiology : denies palpitations or chest pain Respiratory: denies SOB or cough Hematology: denies history of prolonged bleeding or easy bruising or VTE Allergy: Denies history of personal or family history of allergy to anesthesia PHYSICAL EXAMINATION: VITALS: Blood pressure 138/76, weight 86.1 kg (189 lb 14.4 oz), last menstrual period 01/25/2023. GENERAL: The patient is well nourished, well hydrated in no acute distress. , The patient is oriented to time, place, and person. NECK: Supple. No lynphadenopathy, normal thyroid, no thyromegaly. LUNGS: Clear to auscultation bilaterally. no wheezes, rhonchi or rales HEART: Regular rate and rhythm, Normal heart sounds, and No murmurs or gallops Pelvic US 829/24 Indication Abnormal uterine bleeding Impression Anteverted fibroid uterus that measures 119 mm x 69 mm x 79 mm. The largest fibroids are described below. There are two heterogeneous vascular areas within the cervical stroma, measuring 20 mm x 27 mm x 20 mm and 17 mm x 17 mm x 16 mm. Appearance is suggestive of cervical fibroids, however recommend clinical correlation to rule of neoplasm. Endometrium measures 19.3 mm which is abnormally thickened. The endometrium contains two hyperechoic areas which are suggestive of polyps, measuring 16 x 13 x 13 mm and 35 x 21 x 7 mm. Both ovaries are visualized and appear normal with follicular change. No adnexal masses were observed. There is no free fluid visualized in the peritoneal cavity. Recommendations Recommend cervical and endometrial evaluation as clinically indicated. IMPRESSION: Type 0 submucosal uterine fibroid prolapsing through cervix, AUB, thickened endometrialpolyps, Fe def anemia chronic blood loss PLAN: The risks/benefits/alternatives and personal involved for the planned hystersocopy D&C with possible polyp and fibroid resection were reviewed with the patient. Her questions were answered to her satisfaction and she desires to proceed. Consent was signed. I reviewed with her postop instructions and expectations. I have reviewed and updated past medical and surgical history, medications and allergies Emily Plunkett M.D. [facility] NoteHNO ID: [id number] Author: EMILY PLUNKETT MD Service: ? Author Type: Physician Type: Progress Notes Filed: 11/26/2023 13:50 Note Text: Lakeisha Topete is a 53 year old female who presents for problem visit for f/u AUB. HPI: 53 YOF s/p endometrial ablation at outside hospital about a year ago. Never stopped her bleeding or pain and bleeding continues to get worse. Bleeds in between periods. H/o abnormal paps. OB History T0 L5 SAB5 IAB0 Ectopic0 Multiple0 Live Births0 [employer] History LMP: 01/25/2023 (Approximate), Having periods Age at Menarche: Age at First : Age at Menopause: [employer] History Comments: Sexual Activity: Yes; Male Contraception: Tubal Ligation PAST MEDICAL HISTORY Diagnosis Date Allergic rhinitis, cause unspecified Depression 09/26/2010 Diabetes mellitus (HCC) Morbid obesity (HCC) 07/24/2011 Other combinations of endocrine dysfunction Sprain of neck Unspecified asthma(493.90) PAST SURGICAL HISTORY Procedure Laterality Date ENDOMETRIAL BIOPSY 11/17/2023 LAPAROSCOPIC APPENDECTOMY 09/20/2009 LAPS SURG CHOLECYSTECTOMY W/CHOLANGIOGRAPHY IOC - non draining LIG/TRNSXJ FLP TUBE ABDL/VAG APPR UNI/BI Tubal ligation TONSILLECTOMY PRIMARY/SECONDARY Tonsillectomy FAMILY HISTORY Problem Relation Age of Onset COPD Father Coronary Artery Disease Father of [place] Cancer Mother breast cancer Diabetes Mother Heart [...] Use Smoking status: Never Smokeless tobacco: Never Tobacco comments: VAPE Vaping Use Vaping status: Some Days Substance Use Topics Alcohol use: Not Currently Drug use: Never Current Outpatient Medications Medication Sig ibuprofen (MOTRIN) 600 mg tablet Take 1 tablet by mouth every 6 hours as needed for pain. FOR PAIN. norethindrone (AYGESTIN) 5 mg tablet 1 tab 3x/day until bleeding stops. 1 tab 2x/day x 2 days. 1 tab daily x 5 days ferrous sulfate (SLOW FE) 137 mg (45 mg iron) TbER Take 1 tablet by mouth once daily. albuterol HFA (PROVENTIL HFA, VENTOLIN HFA) 90 mcg/actuation inhaler Inhale 2 Puffs as instructed every 4 hours as needed for wheezing/shortness of breath. simvastatin (ZOCOR) 80 mg tablet Take 1 tablet by mouth once daily. omeprazole (PRILOSEC) 40 mg capsule Take by mouth. glipiZIDE (GLUCOTROL XL) 5 mg 24 hr tablet Take 1 tablet by mouth once daily. ARIPiprazole (ABILIFY) 5 mg tablet Take 1 tablet by mouth once daily. For 30 days FLUoxetine (PROZAC) 20 mg capsule Take 1 capsule by mouth once daily. losartan (COZAAR) 25 mg tablet Take 1 tablet by mouth once daily. For 30 days metFORMIN (GLUCOPHAGE) 500 mg tablet Take 500 mg by mouth twice daily. acetaminophen (TYLENOL EXTRA STRENGTH) 500 mg tablet Take 1 tablet by mouth every 6 hours as needed for pain. Ipratropium (ATROVENT) 17 mcg/actuation inhaler Inhale 2 Puffs as instructed every 6 hours. fluticasone (FLONASE) 50 mcg/actuation nasal spray Use 1 [place] in each nostril once daily. mometasone-formoterol (DULERA) 100-5 mcg/actuation inhaler Inhale 2 Puffs as instructed twice daily. albuterol HFA (PROAIR HFA) 90 mcg/actuation inhaler Inhale 2 Puffs as instructed every 4 hours as needed for Wheezing/Shortness of Breath. acetaminophen (TYLENOL) 325 mg tablet Take 325 mg by mouth every 6 hours as needed. Take two tablets every 6 hours as needed for pain. benzonatate (TESSALON PERLE) 100 mg capsule Take 1 capsule by mouth three times a day as needed. (Patient not taking: Reported on 11/24/2023) miSOPROStol (CYTOTEC) 200 mcg tablet Take 1 tablet by mouth as directed. Insert one tablet vaginally the night before procedure. Take one tablet orally the morning of procedure. (Patient not taking: Reported on 11/24/2023) ferrous sulfate 325 mg (65 mg iron) tablet Take 1 tablet by mouth two times a day. (Patient not taking: Reported on 11/24/2023) meclizine (ANTIVERT) 25 mg tab Take 1 tablet by mouth two times a day as needed (dizziness). (Patient not taking: Reported on 11/24/2023) No current facility-administered medications for this visit. Allergies As of Date: 11/24/2023 Allergen Noted Reaction PENICILLINS 08/06/2005 Fully Assessed 11/24/2023 SENSITIVE EXAM: The sensitive examination was discussed with the Patient or Patient's Authorized School Bus Mechanic. As applicable, any other physician, advance practice provider, medical student, or other health professional student that will be observing or involved in the sensitive examination for educational or training purposes was discussed with the Patient or Authorized School Bus Mechanic. The [facility] (more content not included)...[facility]09-25-2024 History of Present illness Narrative* Emily Plunkett MD - 11/24/2023 11:14 AM EDT Lakeisha Topete is a 53 year old female who presents for problem visit for f/u AUB. HPI: 53 YOF s/p endometrial ablation at outside hospital about a year ago. Never stopped her bleeding or pain and bleeding continues to get worse. Bleeds in between periods. H/o abnormal paps. OB History T0 L5 SAB5 IAB0 Ectopic0 Multiple0 Live Births0 [employer] History LMP: 01/25/2023 (Approximate), Having periods Age at Menarche: Age at First : Age at Menopause: [employer] History Comments: Sexual Activity: Yes; Male Contraception: Tubal Ligation PAST MEDICAL HISTORY Diagnosis Date Allergic rhinitis, cause unspecified Depression 09/26/2010 Diabetes mellitus (HCC) Morbid obesity (HCC) 07/24/2011 Other combinations of endocrine dysfunction Sprain of neck Unspecified asthma(493.90) PAST SURGICAL HISTORY Procedure Laterality Date ENDOMETRIAL BIOPSY 11/17/2023 LAPAROSCOPIC APPENDECTOMY 09/20/2009 LAPS SURG CHOLECYSTECTOMY W/CHOLANGIOGRAPHY IOC - non draining LIG/TRNSXJ FLP TUBE ABDL/VAG APPR UNI/BI Tubal ligation TONSILLECTOMY PRIMARY/SECONDARY <AGE 12 Tonsillectomy FAMILY HISTORY Problem Relation Age of Onset COPD Father Coronary Artery Disease Father of [place] Cancer Mother breast cancer Diabetes Mother Heart [...] Use Smoking status: Never Smokeless tobacco: Never Tobacco comments: VAPE Vaping Use Vaping status: Some Days Substance Use Topics Alcohol use: Not Currently Drug use: Never Current Outpatient Medications Medication Sig ibuprofen (MOTRIN) 600 mg tablet Take 1 tablet by mouth every 6 hours as needed for pain. FOR PAIN. norethindrone (AYGESTIN) 5 mg tablet 1 tab 3x/day until bleeding stops. 1 tab 2x/day x 2 days. 1 tab daily x 5 days ferrous sulfate (SLOW FE) 137 mg (45 mg iron) TbER Take 1 tablet by mouth once daily. albuterol HFA (PROVENTIL HFA, VENTOLIN HFA) 90 mcg/actuation inhaler Inhale 2 Puffs as instructed every 4 hours as needed for wheezing/shortness of breath. simvastatin (ZOCOR) 80 mg tablet Take 1 tablet by mouth once daily. omeprazole (PRILOSEC) 40 mg capsule Take by mouth. glipiZIDE (GLUCOTROL XL) 5 mg 24 hr tablet Take 1 tablet by mouth once daily. ARIPiprazole (ABILIFY) 5 mg tablet Take 1 tablet by mouth once daily. For 30 days FLUoxetine (PROZAC) 20 mg capsule Take 1 capsule by mouth once daily. losartan (COZAAR) 25 mg tablet Take 1 tablet by mouth once daily. For 30 days metFORMIN (GLUCOPHAGE) 500 mg tablet Take 500 mg by mouth twice daily. acetaminophen (TYLENOL EXTRA STRENGTH) 500 mg tablet Take 1 tablet by mouth every 6 hours as neededfor pain. Ipratropium (ATROVENT) 17 mcg/actuation inhaler Inhale 2 Puffs as instructed every 6 hours. fluticasone (FLONASE) 50 mcg/actuation nasal spray Use 1 [place] in each nostril once daily. mometasone-formoterol (DULERA) 100-5 mcg/actuation inhaler Inhale 2 Puffs as instructed twice daily. albuterol HFA (PROAIR HFA) 90 mcg/actuation inhaler Inhale 2 Puffs as instructed every 4 hours as needed for Wheezing/Shortness of Breath. acetaminophen (TYLENOL) 325 mg tablet Take 325 mg by mouth every 6 hours as needed. Take two tablets every 6 hours as needed for pain. benzonatate (TESSALON PERLE) 100 mg capsule Take 1 capsule by mouth three times a day as needed. (Patient not taking: Reported on 11/24/2023) miSOPROStol (CYTOTEC) 200 mcg tablet Take 1 tablet by mouth as directed. Insert one tablet vaginally the night before procedure. Take one tablet orally the morning of procedure. (Patient not taking: Reported on 11/24/2023) ferrous sulfate 325 mg (65 mg iron) tablet Take 1 tablet by mouth two times a day. (Patient not taking: Reported on 11/24/2023) meclizine (ANTIVERT) 25 mg tab Take 1 tablet by mouth two times a day as needed (dizziness). (Patient not taking: Reported on 11/24/2023) No current facility-administered medications for this visit. Allergies As of Date: 11/24/2023 Allergen Noted Reaction PENICILLINS 08/06/2005 Fully Assessed 11/24/2023 SENSITIVE EXAM: The sensitive examination was discussed with the Patient or Patient's Authorized School Bus Mechanic. As applicable, any other physician, advance practice provider, medical student, or other health professional student that will be observing or involved in the sensitive examination for educational or training purposes was discussed with the Patient or Authorized School Bus Mechanic. The Patient or Authorized School Bus Mechanic has agreed to proceed with the sensitive examination. (Sensitive examination includes inspection and/or palpation of the breasts, pelvis, prostate and anorectal regions). EXAM: BP 138/76 Wt 189 lb 14.4 oz (86.1kg) LMP 01/25/2023 GENERAL: pleasant, female in no apparent distress PELVIC: external genitalia normal, normal Bartholin's glands, urethra, Worden's glands, no vulvar lesions, no cervical lesions, good vaginal support, normal appearing perineal body and perianal region, blood tinged discharge. The cervix is dilated and there is a 5 cm fibroid prolapsing through the cervix that is nontender BIMANUAL: uterus normal size, shape and consistency, no adnexal masses, and non-tender ASSESSMENT AND PLAN: thickened endometrium, AUB, utererine fibroid prolapsing through the cervix r/b/a to various options reviewed, she would like to proceed w/ as conservative management as possible. Decision for surgery today. Hysteroscopy w/ removal of prolapsed fibroid, D&C with polyp and or fibroid resection. Questions answered. H&P completed separately. reveiwed pelvic US, PAP and HRHPV pending. EMB reviewed. CBC and fe ordered cont. tylenol and motrin prn pain. cont. aygestin to help keepbleeding from increasing Emily Plunkett MD [facility] Telephone encounter Note * Telephone Encounter - Olive Florian MA - 11/22/2023 4:08 PM EDT Form received from P placed on signing tray Olive Florian MA [facility]09-23-2024 Miscellaneous Notes* Telephone Encounter - Olive Florian MA - 11/22/2023 4:08 PM EDT Form received from [facility] placed on signing tray Olive Florian MA documented in [facility] encounterWestern [facility]09-18-2024 Instructions* Patient Instructions* Faisal Boo MA - 11/17/2023 2:32 PM EDT YOUR RECOVERY After your biopsy you may have: Vaginal bleeding (less than a normal menstrual period) Mild cramping Do NOT put anything in the vagina for 1 week after your endometrial biopsy. This includes: tampons douches and refraining from having sexual intercourse If you have any discomfort, you may take an over the counter pain medication (motrin, advil, ibuprofen, tylenol, etc). If this does not relieve your discomfort, contact the office. It is okay to wear a sanitary pad until the discharge and spotting stops. RISKS Although problems seldom occur with endometrial biopsies, there can be some complications. You may feel faint during and shortly after the procedure as well as have some bleeding after the procedure.There is also a risk of infection after the procedure. These complications are rare and can be easily treated. You should contact you doctor is you have any of the following: Heavy bleeding (more than your normal period) Bleeding with clots Severe abdominal pain Fever (more than 100.4F) Foul smelling vaginal discharge RESULTS We will have the results of your biopsy in 1-2 weeks. If you do not hear the results of your biopsyafter 2 weeks, please contact the office for the results. If you have any additional questions or concerns please do not hesitate to contact the office. documented in [facility] NoteHNO ID: [id number] Author: SUZE PLEITEZ APRN.CNM Service: ? Author Type: Lithograph Operator Type: Progress Notes Filed: 11/17/2023 15:49 Note Text: K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 The sensitive examination was discussed with the Patient or Patient's Authorized School Bus Mechanic. As applicable, any other physician, advance practice provider, medical student, or other health professional student that will be observing or involved in the sensitive examination for educational or training purposes was discussed with the Patient or Authorized School Bus Mechanic. The Patient or Authorized School Bus Mechanic has agreed to proceed with the sensitive examination. (Sensitive examination includes inspection and/or palpation of the breasts, pelvis, prostate and anorectal regions) Lakeisha is a 53 year old who presents today for an endometrial biopsy for abnormal uterine bleeding, thickening of endometrial lining. test: negative UNIVERSAL PROTOCOL / SAFETY CHECKLIST Procedure to be Performed: Endometrial biopsy Sign In: A Moment of CARE was completed. Personnel directly involved with the procedure wore the appropriate PPE (Personal Protective Equipment). No special equipment needed. Patient/Surrogate Stated/Verified: PATIENT VERIFIED(optional for EMERGENT procedures): Patient name, Date of , Relevant allergies, and The intended procedure Time Out Communication: Intended patient and procedure match the source documents. Consent documented and matches the intended procedure. Relevant labs, photos, and/or imaging studies have been reviewed. Correct side/site marked and visible. Medications required for procedure verified. No fire risk assessment and interventions applicable. No implant(s) inserted. Sign Out: SIGN OUT (optional for EMERGENT procedures): All specimen containers correctly labeled. All instruments, equipment, possible retained foreign bodies accounted for. Post-procedure follow-up management communicated and Plan of Care Visit completed when applicable. 10/31/23 Anteverted fibroid uterus that measures 119 mm x 69 mm x 79 mm. The largest fibroids are described below. There are two heterogeneous vascular areas within the cervical stroma, measuring 20 mm x 27 mm x 20 mm and 17 mm x 17 mm x 16 mm. Appearance is suggestive of cervical fibroids, however recommend clinical correlation to rule of neoplasm. Endometrium measures 19.3 mm which is abnormally thickened. The endometrium contains two hyperechoic areas which are suggestive of polyps, measuring 16 x 13 x 13 mm and 35 x 21 x 7 mm. Both ovaries are visualized and appear normal with follicular change. No adnexal masses were observed. There is no free fluid visualized in the peritoneal cavity. Recommendations Recommend cervical and endometrial evaluation as clinically indicated. PROCEDURE: EXTERNAL GENITALIA: Normal in appearance without lesions VAGINA: pink, rugae, cervix friable. With initial exam cervix appeared round in size. Withdraw of speculum and reinsertion enlarged tissue below superior aspect of BIOPSY: Speculum placed into the vagina with excellent visualization of the cervix. Cervix cleaned with betadine. Anterior lip of cervix grasped with single toothed tenaculum. Uterus sounded to 8 cm. Pipelle inserted into the uterus without difficulty and endometrial biopsy obtained. Specimen labeled and sent to pathology. Hemostasis achieved. Procedure Summary: Patient tolerated procedure well. ASSESSMENT: abnormal uterine bleeding, thickening of endometrial lining, cervical fibroids PLAN: Specimens labeled and sent to Pathology. Post-procedure instructions reviewed and written material given to the patient. ASSESSMENT/PLAN: 1. Abnormal uterine bleeding (AUB) - ICD9: 626.9, ICD10: N93.9 (primary diagnosis) - ENDOMETRIAL BIOPSY - SURGICAL PATHOLOGY - Aygestin Taper -Discussed probable surgical intervention, will await biopsy results. 2. Endometrial thickening on ultrasound - ICD9: 793.5, ICD10: R93.89 - ENDOMETRIAL BIOPSY - SURGICAL PATHOLOGY 3. Screening for cervical cancer - ICD9: V76.2, ICD10: Z12.4 - PAP TEST 4. Screening for human papillomavirus - ICD9: V73.81, ICD10: Z11.51 - PAP TEST 5. Iron deficiency anemia due to chronic blood loss - ICD9: 280.0, ICD10: D50.0 -Slow FE PO once daily -Consider hematology consult after evaluation. Suze Pleitez APRN.[facility]09-18-2024 History of Present illness Narrative* Suze Pleitez APRN.[facility] - 11/17/2023 2:31 PM EDT K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 The sensitive examination was discussed with the Patient or Patient's Authorized School Bus Mechanic. Asapplicable, any other physician, advance practice provider, medical student, or other health professional student that will be observing or involved in the sensitive examination for educational or training purposes was discussed with the Patient or Authorized School Bus Mechanic. The Patient or Authorized School Bus Mechanic has agreed to proceed with the sensitive examination. (Sensitive examination includes inspection and/or palpation of the breasts, pelvis, prostate and anorectal regions) Lakeisha is a 53 year old who presents today for an endometrial biopsy for abnormal uterine bleeding,thickening of endometrial lining. test: negative UNIVERSAL PROTOCOL / SAFETY CHECKLIST Procedure to be Performed: Endometrial biopsy Sign In: A Moment of CARE was completed. Personnel directly involved with the procedure wore the appropriate PPE (Personal Protective Equipment). No special equipment needed. Patient/Surrogate Stated/Verified: PATIENT VERIFIED(optional for EMERGENT procedures): Patient name, Date of , Relevant allergies, and The intended procedure Time Out Communication: Intended patient and procedure match the source documents. Consent documented and matches the intended procedure. Relevant labs, photos, and/or imaging studies have been reviewed. Correct side/site marked and visible. Medications required for procedure verified. No fire risk assessment and interventions applicable. No implant(s) inserted. Sign Out: SIGN OUT (optional for EMERGENT procedures): All specimen containers correctly labeled. All instruments, equipment, possible retained foreign bodies accounted for. Post-procedure follow-up management communicated and Plan of Care Visit completed when applicable. 10/31/23 Anteverted fibroid uterus that measures 119 mm x 69 mm x 79 mm. The largest fibroids are described below. There are two heterogeneous vascular areas within the cervical stroma, measuring 20 mm x 27 mm x 20 mm and 17 mm x 17 mm x 16 mm. Appearance is suggestive of cervical fibroids, however recommend clinical correlation to rule of neoplasm. Endometrium measures 19.3 mm which is abnormally thickened. The endometrium contains two hyperechoic areas which are suggestive of polyps, measuring 16 x 13 x 13 mm and 35 x 21 x 7 mm. Both ovaries are visualized and appear normal with follicular change. No adnexal masses were observed. There is no free fluid visualized in the peritoneal cavity. Recommendations Recommend cervical and endometrial evaluation as clinically indicated. PROCEDURE: EXTERNAL GENITALIA: Normal in appearance without lesions VAGINA: pink, rugae, cervix friable. With initial exam cervix appeared round in size. Withdraw of speculum and reinsertion enlarged tissue below superior aspect of BIOPSY: Speculum placed into the vagina with excellent visualization of the cervix. Cervix cleaned with betadine. Anterior lip of cervix grasped with single toothed tenaculum. Uterus sounded to 8 cm.Pipelle inserted into the uterus without difficulty and endometrial biopsy obtained. Specimen labeled and sent to pathology. Hemostasis achieved. Procedure Summary: Patient tolerated procedure well. ASSESSMENT: abnormal uterine bleeding, thickening of endometrial lining, cervical fibroids PLAN: Specimens labeled and sent to Pathology. Post-procedure instructions reviewed and written material given to the patient. ASSESSMENT/PLAN: 1. Abnormal uterine bleeding (AUB) - ICD9: 626.9, ICD10: N93.9 (primary diagnosis) - ENDOMETRIAL BIOPSY - SURGICAL PATHOLOGY - Aygestin Taper -Discussed probable surgical intervention, will await biopsy results. 2. Endometrial thickening on ultrasound - ICD9: 793.5, ICD10: R93.89 - ENDOMETRIAL BIOPSY - SURGICAL PATHOLOGY 3. Screening for cervical cancer - ICD9: V76.2, ICD10: Z12.4 - PAP TEST 4. Screening for human papillomavirus - ICD9: V73.81, ICD10: Z11.51 - PAP TEST 5. Iron deficiency anemia due to chronic blood loss - ICD9: 280.0, ICD10: D50.0 -Slow FE PO once daily -Consider hematology consult after evaluation. Suze Pleitez APRN.CNM documented in this encounterWestern [facility] Telephone encounter Note * Telephone Encounter - Suze Pleitez APRN.CNM - 11/15/2023 9:33 AM EDT I sent Valium 5mg and can take 30 minutes prior to procedure. I can give her Toradol in office for the pain instead of oxycodone for relief. Thanks, Suze Pleitez APRN.CNM [facility]09-16-2024 Miscellaneous Notes* Telephone Encounter - Suze Pleitez APRN.CNM - 11/15/2023 9:33 AM EDT I sent Valium 5mg and can take 30 minutes prior to procedure. I can give her Toradol in office for the pain instead of oxycodone for relief. Thanks, Suze Pleitez APRN.CNM * Telephone Encounter - Nya Noguera RN - 11/12/2023 10:02 AM EDT Patient has EMB on 11/17/23 documented in this encounterWestern [facility]09-13-[facility]24 Telephone encounter Note * Telephone Encounter - Nya Noguera RN - 11/12/2023 10:02 AM EDT Patient has EMB on 11/17/23 [facility] Telephone encounter Note* Telephone Encounter - Christine Li RN - 11/02/2023 1:32 PM EDT Patient called and unable to come tomorrow because she has to have 48 hours notice for transportation and will not come in on Wednesday because she works. Patient states she just wants to keep her EMB on 11/16. Christine Li RN [facility]09-03-2024 Miscellaneous Notes* Telephone Encounter - Christine Li RN - 11/02/2023 1:32 PM EDT Patient called and unable to come tomorrow because she has to have 48 hours notice for transportation and will not come in on Wednesday because she works. Patient states she just wants to keep her EMB on 11/16. Christine Li RN * Telephone Encounter - Suze Pleitez APRN.CNM - 11/02/2023 12:56 PM EDT Can patient come for EMB with me tomorrow or Wednesday? I Can do 8:30am or 1140 tomorrow for EMB. Makesure she takes the cytotec as prescribed. Suze Pleitez APRN.CNM * Telephone Encounter - Zenia Mcknight RN - 11/02/2023 12:31 PM EDT Patient viewed results of ultrasound in MyCH[employer]. Asking to be called with results/plans. May leave detailed message on voicemail if after 3pm documented in this encounterWestern [facility] Hospital09-[facility]-2024 Telephone encounter Note * Telephone Encounter - Suze Pleitez APRN.CNM - 11/02/2023 12:56 PM EDT Can patient come for EMB with me tomorrow or Wednesday? I Can do 8:30am or 1140 tomorrow for EMB. Makesure she takes the cytotec as prescribed. Suze Pleitez APRN.CNM [facility]09-03-20[facility] Telephone encounter Note* Telephone Encounter - Zenia Mcknight RN - 11/02/2023 12:31 PM EDT Patient viewed results of ultrasound in [employer]. Asking to be called with results/plans. May leave detailed message on voicemail if after 3pm [facility]-03-[facility] Telephone encounter Note* Telephone Encounter - Zenia Mcknight RN - 11/02/2023 12:29 PM EDT Patient is awaiting to hear back from [employer] [facility]09-03-2024 Miscellaneous Notes* Telephone Encounter - Zenia Mcknight RN - 11/02/2023 12:29 PM EDT Patient is awaiting to hear back from [employer] * Telephone Encounter - Suze Pleitez APRN.CNM - 10/26/2023 2:49 PM EDT Does she know exactly what pads they cover so I can send those in? Thanks, Suze Pleitez APRN.CNM * Telephone Encounter - Nya Noguera RN - 10/26/2023 1:56 PM EDT Patient notified that med instructions were correct. She is needing an RX for pad for the bed sent to [facility] in [place]. She was told that she will need a PA through [facility]. Please send in RX sothat a PA can be generated. Thank you. Nya Noguera RN * Telephone Encounter - Suze Pleitez APRN.CNM - 10/26/2023 12:58 PM EDT Ok, Jen has add ons she could fit her into but if patient unable I understand. Yes, vaginally night before and oral morning of procedure. Thanks, Suze Pleitez APRN.CNM * Telephone Encounter - Nya Noguera RN - 10/26/2023 12:02 PM EDT Patient notified. We are not able to move up her appt due to patient's work schedule. Can you please clarify Cytotec instructions. She is to use 1 tab vaginally the night before, but take the other tab orally the morning of? Nya Noguera RN * Telephone Encounter - Nya Noguera RN - 10/25/2023 4:49 PM EDT Left message for patient to call office. Nya Noguera RN * Telephone Encounter - Suze Pleitez APRN.CNM - 10/25/2023 4:40 PM EDT Shows anemia as before. Other labs formal. Please make sure she gets pelvic US next week and can you please move her EMB up sooner for me? Also to take cytotec prior to appointment for EMB. Sent to pharmacy. Suze Pleitez APRN.CNM * Telephone Encounter - Yara Charles RN - 10/25/2023 1:26 PM EDT Patient calling to see if provider can review her blood work she had drawn 10/20/23. Please review and advise. Yara Charles RN documented in this encounterWestern [facility] Hospital08-31-2024 NoteHNO ID: [id number] Author: DON GARCIA MD Service: ? Author Type: Physician Type: Progress Notes Filed: 10/30/2023 19:13 Note Text: Lakeisha Topete is a 53 year old female who presented for obstetrician and gynaecologist ultrasound today. Encounter Diagnosis ICD-10-CM 1. Abnormal uterine bleeding (AUB) N93.9 2. Iron deficiency anemia due to chronic blood loss D50.0 Please see report under imaging tab. Don Garcia MD October 30, 2023 7:02 [facility]08-31-2024 History of Present illness Narrative * Don Garcia MD - 10/30/2023 7:02 PM EDT Lakeisha Topete is a 53 year old female who presented for obstetrician and gynaecologist ultrasound today. Encounter Diagnosis ICD-10-CM 1. Abnormal uterine bleeding (AUB) N93.9 2. Iron deficiency anemia due to chronic blood loss D50.0 Please see report under imaging tab. Don Garcia MD October 30, 2023 7:02 PM documented in this encounterWestern [facility] Hospital08-27-2024 NoteHNO ID: [id number] Author: PASQUALE HOLLINS PA Service: ? Author Type: Physician Blender Helper Type: Progress Notes Filed: 10/26/2023 15:19 Note Text: This note was created using Trademarkiariter. Subjective Lakeisha Topete is a 53 year old female. HPI 53-year-old female presents for cough, congestion, body aches since yesterday. Patient states she started getting sick with nasal congestion and achiness yesterday. Today she has more sinus pressure. She does have a dry cough. States she had vomiting yesterday. She has been able to drink fluids today and keep them down. No diarrhea. No abdominal pain. Patient has not had any fevers. She has not taken anything [id number] for her symptoms. States her roommate is sick with similar symptoms. Patient states her glucose has been under control, 130-160 today. PAST MEDICAL HISTORY No date: Allergic rhinitis, cause unspecified 09/26/2010: Depression No date: Diabetes mellitus (HCC) 07/24/2011: Morbid obesity (HCC) No date: Other combinations of endocrine dysfunction No date: Sprain of neck No date: Unspecified asthma(493.90) PAST SURGICAL HISTORY 09/20/2009: LAPAROSCOPIC APPENDECTOMY No date: LAPS SURG CHOLECYSTECTOMY W/CHOLANGIOGRAPHY Comment: IOC - non draining No date: LIG/TRNSXJ FLP TUBE ABDL/VAG APPR UNI/BI Comment: Tubal ligation No date: TONSILLECTOMY PRIMARY/SECONDARY Comment: Tonsillectomy ALLERGIES Penicillins MEDICATIONS miSOPROStol (CYTOTEC) 200 mcg tablet Take 1 tablet by mouth as directed. Insert one tablet vaginally the night before procedure. Take one tablet orally the morning of procedure. simvastatin (ZOCOR) 80 mg tablet Take 1 tablet by mouth once daily. ferrous sulfate 325 mg (65 mg iron) tablet Take 1 tablet by mouth two times a day. omeprazole (PRILOSEC) 40 mg capsule Take by mouth. glipiZIDE (GLUCOTROL XL) 5 mg 24 hr tablet Take 1 tablet by mouth once daily. ARIPiprazole (ABILIFY) 5 mg tablet Take 1 tablet by mouth once daily. For 30 days FLUoxetine (PROZAC) 20 mg capsule Take 1 capsule by mouth once daily. losartan (COZAAR) 25 mg tablet Take 1 tablet by mouth once daily. For 30 days meclizine (ANTIVERT) 25 mg tab Take 1 tablet by mouth two times a day as needed (dizziness). metFORMIN (GLUCOPHAGE) 500 mg tablet Take 500 mg by mouth twice daily. acetaminophen (TYLENOL EXTRA STRENGTH) 500 mg tablet Take 1 tablet by mouth every 6 hours as needed for pain. Ipratropium (ATROVENT) 17 mcg/actuation inhaler Inhale 2 Puffs as instructed every 6 hours. fluticasone (FLONASE) 50 mcg/actuation nasal spray Use 1 [place] in each nostril once daily. mometasone-formoterol (DULERA) 100-5 mcg/actuation inhaler Inhale 2 Puffs as instructed twice daily. albuterol HFA (PROAIR HFA) 90 mcg/actuation inhaler Inhale 2 Puffs as instructed every 4 hours as needed for Wheezing/Shortness of Breath. acetaminophen (TYLENOL) 325 mg tablet Take 325 mg by mouth every 6 hours as needed. Take two tablets every 6 hours as needed for pain. benzonatate (TESSALON PERLE) 100 mg capsule Take 1 capsule by mouth three times a day as needed. albuterol HFA (PROVENTIL HFA, VENTOLIN HFA) 90 mcg/actuation inhaler Inhale 2 Puffs as instructed every 4 hours as needed for wheezing/shortness of breath. FAMILY HISTORY Problem Relation Age of Onset COPD Father Coronary Artery Disease Father of [place] Cancer Mother breast cancer Diabetes Mother Heart [...] Use Smoking status: Never Smokeless tobacco: Never Tobacco comments: VAPE Vaping Use Vaping status: Some Days Substance Use Topics Alcohol use: Not Currently Drug use: Never Review of Systems Constitutional: Negative for chills and fever. HENT: Positive for congestion and sinus pain. Negative for ear pain and sore throat. Respiratory: Positive for cough. Negative for shortness of breath. Cardiovascular: Negative for chest pain. Gastrointestinal: Positive for nausea and vomiting. Negative for diarrhea. Musculoskeletal: Positive for myalgias. Objective BP 136/76 Pulse 90 Temp 36.8 ?C (98.3 ?F) Resp 16 Wt 86.6 kg (190 lb 14.7 oz) LMP 01/25/2023 (Approximate) SpO2 97% BMI 39.90 kg/m? Physical Exam Vitals and nursing note reviewed. Constitutional: General: She is not in acute distress. Appearance: Normal appearance. She is not toxic-appearing. HENT: Right Ear: Tympanic membrane and ear canal normal. Left Ear: Tympanic membrane and ear canal normal. Nose: Congestion present. Mouth/Throat: Mouth: Mucous membranes are moist. Eyes: Conjunctiva/sclera: Con (more content not included)...[facility] 10-26-2023 History of Present illness Narrative* Pasquale Hollins PA - 10/26/2023 3:16 PM EDT This note was created using Trademarkiariter. Subjective Lakeisha Topete is a 53 year old female. HPI 53-year-old female presents for cough, congestion, body aches since yesterday. Patient states she started getting sick with nasal congestion and achiness yesterday. Today she has more sinus pressure. She does have a dry cough. States she had vomiting yesterday. She has been able to drink fluidstoday and keep them down. No diarrhea. No abdominal pain. Patient has not had any fevers. She has not taken anything cgyk-oje-hwknuko for her symptoms. States her roommate is sick with similar symptoms. Patient states her glucose has been under control, 130-160 today. PAST MEDICAL HISTORY No date: Allergic rhinitis, cause unspecified 09/26/2010: Depression No date: Diabetes mellitus (HCC) 07/24/2011: Morbid obesity (HCC) No date: Other combinations of endocrine dysfunction No date: Sprain of neck No date: Unspecified asthma(493.90) PAST SURGICAL HISTORY 09/20/2009: LAPAROSCOPIC APPENDECTOMY No date: LAPS SURG CHOLECYSTECTOMY W/CHOLANGIOGRAPHY Comment: IOC - non draining No date: LIG/TRNSXJ FLP TUBE ABDL/VAG APPR UNI/BI Comment: Tubal ligation No date: TONSILLECTOMY PRIMARY/SECONDARY <AGE 12 Comment: Tonsillectomy ALLERGIES Penicillins MEDICATIONS miSOPROStol (CYTOTEC) 200 mcg tablet Take 1 tablet by mouth as directed. Insert one tablet vaginally the night before procedure. Take one tablet orally the morning of procedure. simvastatin (ZOCOR) 80 mg tablet Take 1 tablet by mouth once daily. ferrous sulfate 325 mg (65 mg iron) tablet Take 1 tablet by mouth two times a day. omeprazole (PRILOSEC) 40 mg capsule Take by mouth. glipiZIDE (GLUCOTROL XL) 5 mg 24 hr tablet Take 1 tablet by mouth once daily. ARIPiprazole (ABILIFY) 5 mg tablet Take 1 tablet by mouth once daily. For 30 days FLUoxetine (PROZAC) 20 mg capsule Take 1 capsule by mouth once daily. losartan (COZAAR) 25 mg tablet Take 1 tablet by mouth once daily. For 30 days meclizine (ANTIVERT) 25 mg tab Take 1 tablet by mouth two times a day as needed (dizziness). metFORMIN (GLUCOPHAGE) 500 mg tablet Take 500 mg by mouth twice daily. acetaminophen (TYLENOL EXTRA STRENGTH) 500 mg tablet Take 1 tablet by mouth every 6 hours as neededfor pain. Ipratropium (ATROVENT) 17 mcg/actuation inhaler Inhale 2 Puffs as instructed every 6 hours. fluticasone (FLONASE) 50 mcg/actuation nasal spray Use 1 [place] in each nostril once daily. mometasone-formoterol (DULERA) 100-5 mcg/actuation inhaler Inhale 2 Puffs as instructed twice daily. albuterol HFA (PROAIR HFA) 90 mcg/actuation inhaler Inhale 2 Puffs as instructed every 4 hours as needed for Wheezing/Shortness of Breath. acetaminophen (TYLENOL) 325 mg tablet Take 325 mg by mouth every 6 hours as needed. Take two tablets every 6 hours as needed for pain. benzonatate (TESSALON PERLE) 100 mg capsule Take 1 capsule by mouth three times a day as needed. albuterol HFA (PROVENTIL HFA, VENTOLIN HFA) 90 mcg/actuation inhaler Inhale 2 Puffs as instructed every 4 hours as needed for wheezing/shortness of breath. FAMILY HISTORY Problem Relation Age of Onset COPD Father Coronary Artery Disease Father of [place] Cancer Mother breast cancer Diabetes Mother Heart [...] Use Smoking status: Never Smokeless tobacco: Never Tobacco comments: VAPE Vaping Use Vaping status: Some Days Substance Use Topics Alcohol use: Not Currently Drug use: Never Review of Systems Constitutional: Negative for chills and fever. HENT: Positive for congestion and sinus pain. Negative for ear pain and sore throat. Respiratory: Positive for cough. Negative for shortness of breath. Cardiovascular: Negative for chest pain. Gastrointestinal: Positive for nausea and vomiting. Negative for diarrhea. Musculoskeletal: Positive for myalgias. Objective BP 136/76 Pulse 90 Temp 36.8 C (98.3 F) Resp 16 Wt 86.6 kg (190 lb 14.7 oz) LMP 01/25/2023 (Approximate) SpO2 97% BMI 39.90 kg/m Physical Exam Vitals and nursing note reviewed. Constitutional: General: She is not in acute distress. Appearance: Normal appearance. She is not toxic-appearing. HENT: Right Ear: Tympanic membrane and ear canal normal. Left Ear: Tympanic membrane and ear canal normal. Nose: Congestion present. Mouth/Throat: Mouth: Mucous membranes are moist. Eyes: Conjunctiva/sclera: Conjunctivae normal. Cardiovascular: Rate and Rhythm: Normal rate and regular rhythm. Pulmonary: Effort: Pulmonary effort is normal. Breath sounds: Normal breath sounds. No wheezing, rhonchi or rales. Abdominal: General: Abdomen is flat. Palpations: Abdomen is soft. Tenderness: There is no abdominal tenderness. Skin: General: Skin is warm and dry. Neurological: Mental Status: She is alert. Assessment and Plan ASSESSMENT/PLAN: 1. URI, acute - ICD9: 465.9, ICD10: J06.9 - Discussed viral etiology and rationale for treatment. - Symptomatic treatment with prn analgesia - Supportive care with fluids and rest - The patient may also use OTC cough and cold meds as needed. -Patient requesting refill on albuterol inhaler. Rx sent to pharmacy. -Patient requesting something to help with cough. Rx for Tessalon Perles. -Recommend bland diet, fluids to help with nausea. -Patient declines viral swab. Diagnosis and treatment plan were discussed and questions were answered to the patient's satisfaction. Pt acknowledged understanding of concepts and follow up plan. Specific signs and symptoms that would indicate the need for higher level of care were discussed in detail warranting prompt ER evaluation. KLEBER Myles [facility] Tele[facility] encounter Note * Telephone Encounter - Suze Pleitez APRN.CNM - 10/26/2023 2:49 PM EDT Does she know exactly what pads they cover so I can send those in? Thanks, Suze Pleitez APRN.CNM [facility]08-27-[facility] Telephone encounter Note* Telephone Encounter - Nya Noguear RN - 10/26/2023 1:56 PM EDT Patient notified that med instructions were correct. She is needing an RX for pad for the bed sent to [facility] in [place]. She was told that she will need a PA through [facility]. Please send in RX sothat a PA can be generated. Thank you. Nya Noguera RN [facility]08-[facility] Telephone encounter Note* Telephone Encounter - Suze Pleitez APRN.CNM - 10/26/2023 12:58 PM EDT Ok, Jen has add ons she could fit her into but if patient unable I understand. Yes, vaginally night before and oral morning of procedure. Edvin, Suze Pleitez APRN.CNM [facility]08-27-[facility] Telephone encounter Note* Telephone Encounter - Nya Noguera RN - 10/26/2023 12:02 PM EDT Patient notified. We are not able to move up her appt due to patient's work schedule. Can you please clarify Cytotec instructions. She is to use 1 tab vaginally the night before, but take the other tab orally the morning of? Nya Noguera RN [facility]08-26[facility] Telephone encounter Note* Telephone Encounter - Nya Noguera RN - 10/25/2023 4:49 PM EDT Left message for patient to call office. Nya Noguera RN [facility]08-[facility] Telephone encounter Note* Telephone Encounter - Suze Pleitez APRN.CNM - 10/25/2023 4:40 PM EDT Shows anemia as before. Other labs formal. Please make sure she gets pelvic US next week and can you please move her EMB up sooner for me? Also to take cytotec prior to appointment for EMB. Sent to pharmacy. Suze Pleitez APRN.CNM [facility]08-[facility] Telephone encounter Note* Telephone Encounter - Yara Charles RN - 10/25/2023 1:26 PM EDT Patient calling to see if provider can review her blood work she had drawn 10/20/23. Please review and advise. Yara Charles RN [facility]08-22-[facility]24 Telephone encounter Note* Telephone Encounter - Olive Florian MA - 10/21/2023 2:53 PM EDT Patient was also wondering if something could be sent in for her pain with her AUB Olive Florian MA [facility]08-22-2024 Miscellaneous Notes* Telephone Encounter - Olive Florian MA - 10/21/2023 2:53 PM EDT Patient was also wondering if something could be sent in for her pain with her AUB Olive Florian MA * Telephone Encounter - Olive Florian MA - 10/21/2023 2:51 PM EDT Patient had her TSH checked by her SURFACE LOGGING [employer]S LOGGER and her level was high. She was wondering if something couldbe prescribed to bring it down Olive Florian MA documented [facility] Telephone encounter Note * Telephone Encounter - Olive Florian MA - 10/21/2023 2:51 PM EDT Patient had her TSH checked by her [employer]FACE LO[employer]ING [employer]S LOGGER and her level was high. She was wondering if something couldbe prescribed to bring it down Olive Florian MA [facility] Instructions* Patient Instructions* Suze Pleitez APRN.CNM - 10/20/2023 2:30 PM EDT AnemiaWhat is anemia? Anemia is a blood disorder that occurs when there is not enough hemoglobin in a person's blood. Hemoglobin is a substance in the red blood cells that makes it possible for the blood to transport (carry) oxygen through the body. When a person develops anemia, he or she is said to be anemic. There are a number of different types of anemia. Some types present only mild health problems, while others are much more severe. Each type of anemia results from one of these factors: The body cannot make enough hemoglobin The body makes hemoglobin, but the hemoglobin doesn't work right The body does not make enough red blood cells The body breaks down red blood cells too fast What are the symptoms of anemia? There are a number of symptoms that are common to all types of anemia. including: Feeling tired Difficulty breathing Dizziness Headache Feeling cold weakness pale skin What causes anemia? A lack of iron in the body is the most common cause of anemia. This type of anemia is called iron-deficiency anemia. Your body uses iron to make hemoglobin. Without the needed amount of iron, your body cannot make hemoglobin. Factors that can decrease your body's stores of iron include: Blood loss (caused within the body by ulcers, some cancers, and other conditions; and, in women, during monthly periods) An iron-poor diet An increase in the body's need for iron (in women during ) Can iron-deficiency anemia be treated? Yes. This type of anemia can be treated and cured. First, your health care provider will determine if the anemia is being caused by a poor diet or a more serious health problem. Then, you can be treated for both the anemia and its cause. Iron-deficiency anemia is treated with: Iron supplements taken by the mouth Foods high in iron What foods are high in iron? The following foods are good sources of iron: Oysters Kidney beans Beef liver Tofu Beef (gabby roast, lean ground beef) Piru leg Whole wheat bread Tuna Eggs Shrimp Peanut butter Leg-of-palacois Brown rice Raisin bran (enriched) molasses Who is most likely to develop iron-deficiency anemia? Anyone can develop iron-deficiency anemia, although the following groups have a higher risk: Women: Blood loss during monthly periods and childbirth can lead to anemia. Children, ages 1 to 2: The body needs more iron during growth spurts. Infants: Infants may get less iron when they are weaned from breast milk or formula to solid food. Iron from solid food is not as easily taken up by the body. People over 65: People over 65 are more likely to have iron-poor diets. People on blood thinners: aspirin, Plavix, Coumadin, or heparin. If I am , should I be concerned about anemia? Yes. If you are , you are more likely to develop iron-deficiency anemia. Your unborn baby relies on you for iron and other nutrients. Many women who are take iron pills to prevent anemia. To make sure that you have enough iron for you and your baby, eat well-balanced meals and follow your health care provider's instructions for taking vitamins and adding iron to your diet. Are there different types of anemia? Yes. Iron-deficiency anemia is just one type of anemia. Other types of anemia are caused by: Diets lacking in vitamin B12 (or, the body is unable to use, or absorb B12) Diets lacking in folic acid (or, the body is unable to use folic acid) Inherited blood disorders Conditions that cause red blood cells to break down too fast (either from toxic substances or blooddisorders) How can I know if I have anemia? Your health care provider can perform blood tests to tell if you have anemia. The type and number of blood tests will depend on what type of anemia is suspected. Your health care provider will determine the proper treatment, depending on the type of anemia and its cause. What are the different types of anemia? The following chart describes some of the different types of anemia, their causes, and the related blood factors: Types of Anemia Causes Factors Iron-deficiency anemia Blood loss, lack of iron in the diet Body cannot make enough red blood cells Pernicious anemia Body is unable to absorb vitamin B12 Body cannot make enough red blood cells Folic acid-deficiency anemia Lack of folic acid in the diet, body is unable to use folic acid, or caused by an illness Body cannot make enough red blood cells Hemolytic anemia Inherited or acquired diseases that causes the red blood cells to be deformed; or a result of another inherited blood disorder, harmful substances, and some drugs taken for illnessesBody breaks down red blood cells too fast Sickle cell anemia Inherited disease that is most common among Americans; red blood cells become sickle shaped Hemoglobin doesn't work right; the shape of the red blood cells causes them to clog blood vessels and break down easily References National Heart, [employer], and [employer] [place]. What Is Anemia? Accessed 11/14/2013. National Heart, Lung, and [employer] [place]. Your Guide to Anemia Accessed 11/14/2013. Copyright 8422-4901 [facility]. All rights reserved This information is provided by the [facility] and is not intended to replace the medical advice of your doctor or health care provider. Please consult your health care provider for advice about a specific medical condition. For additional health information, please contact the [facility] at the [facility] or toll-free extension [phone]. If you prefer, you may visit [email or web address] or [email or web address]. This document was last reviewed on: 2013 index#3204 What You Need To Know About Hysterectomy What is a hysterectomy? Hysterectomy is the surgical removal of the uterus. It ends menstruation and the ability to become . Depending on the reason for the surgery, a hysterectomy may also involve the removal of other organs and tissue. A partial hysterectomy is the removal of the upper part of the uterus. A total (or complete) hysterectomy is the removal of the uterus and cervix. A total hysterectomy with bilateral salpingo-oophorectomy is the removal of the uterus, cervix, fallopian tubes (salpingo) and ovaries (oophor). If you haven't experienced menopause, removing the ovaries will usually initiate it since your body can no longer produce as much estrogen. A radical hysterectomy with bilateral salpingo-oophorectomy is the removal of the uterus, cervix, fallopian tubes, ovaries, the upper portion of the vagina and some surrounding tissue and lymph nodes. A radical hysterectomy may be performed to treat cervical or uterine cancer. Why is hysterectomy performed? A hysterectomy may be performed to treat: Abnormal vaginal bleeding that is not controlled by other treatment methods Severe endometriosis (uterine tissue that grows outside the uterus) Leiomyomas or uterine fibroids (benign tumors) that have increased in size, are painful or are causing bleeding Increased pelvic pain related to the uterus but not controlled by other treatment Uterine prolapse (uterus that has dropped into the vaginal canal due to weakened support muscles)that can lead to urinary incontinence or difficulty with bowel movements Cervical or uterine cancer Are there alternatives to hysterectomy? Yes. A hysterectomy is only one way to treat problems affecting the uterus. For certain conditions,however, hysterectomy may be the best choice. Please ask your health care provider to discuss what alternatives are available to treat your specific condition. Does hysterectomy affect sexual function? A woman's sexual function is usually not affected after hysterectomy, and her sexual desire should not change. If the ovaries were removed with the uterus prior to menopause, decreased sex drive may occur and vaginal dryness may be a problem during sex. However, estrogen therapy can relieve vaginaldryness and other hormone-related effects. Before the procedure A health care provider will explain the procedure in detail, including possible complications and side effects. He or she will also answer your questions. In addition: Blood and urine tests are taken One or more enemas may be given to cleanse the bowel Abdominal and pelvic areas may be shaved An intravenous (IV) line is placed in a vein in your arm to deliver medications and fluids During the procedure An anesthesiologist will give you either: General anesthesia in which you will not be awake during the procedure; or Regional anesthesia (also called epidural or spinal anesthesia) in which medications are placed near the nerves in your lower back to block pain while you stay awake. The surgeon removes the uterus through an incision in your abdomen or vagina. The method used during surgery depends on why you need the surgery and the results of your pelvic exam. During a vaginal hysterectomy, some doctors use a laparoscope (a procedure called laparoscopically assisted vaginal hysterectomy or LAVH) to help them view the uterus and perform the surgery. How long does the procedure last? The procedure lasts 1 to 3 hours. The amount of time you spend in the hospital for recovery varies,depending on the type of surgery performed. The day of discharge A responsible adult must drive you home the day you are discharged from the hospital. Home recovery You may resume your normal diet, as tolerated. You may take a bath or shower. Wash the incision with soap and water (the stitches do not have to be removed, as they will dissolve in about 6 weeks). A dressing over the incision is not necessary. If skin clips (manyn) were used, they will need to be removed by your health care provider. You may use lotions and creams on the skin around the incision to relieve itching. Increase your activity gradually every day, when you feel capable and aren't in pain. Completely normal activities can be resumed within 4 to 6 weeks or sooner if the procedure was performed vaginally. Drive when you feel capable -- about 2 weeks after surgery. You can travel out of town 3 weeks after surgery, including air travel. Avoid lifting heavy objects (over 10 pounds) for at least 4 weeks. Do not douche or put anything into the vagina for 4 weeks. You may have intercourse 4 weeks after surgery, or as directed by your health care provider. Light swimming is permitted 2 weeks after surgery in a swimming pool, but avoid vigorous swimming until 4 weeks after surgery. Resume your exercise routine in 4 to 6 weeks, depending on how you feel. Your doctor can tell you when it's best to go back to work. You can usually go back to work in 3 to6 weeks, depending on the procedure. How will I feel after hysterectomy? Physically After hysterectomy, your periods will stop. Occasionally, you may feel bloated and have symptoms similar to when you were menstruating. It is normal to have light vaginal bleeding or a dark brown discharge for about 4 to 6 weeks. You may feel discomfort at the incision site for about 4 weeks, and any redness, bruising or swelling will disappear in 4 to 6 weeks. A burning, itching feeling around the incision is normal. You mayalso experience a numb feeling around the incision and down your leg; this is normal and if present, usually lasts about 2 months. If the ovaries remain, you should not experience hormone-related effects. If the ovaries were removed with the uterus before menopause, you may experience the symptoms that often occur with menopause, such as hot flashes. Your health care provider may prescribe hormone replacement therapy to relieve menopausal symptoms. Emotionally Emotional reactions to hysterectomy vary, depending on how well you were prepared for the surgery, the reason for having it and whether the problem has been treated. Some women may feel a sense of loss or become depressed, but these emotional reactions are usually temporary. Other women may find that hysterectomy improves their health and well-being, and may evenbe a life-saving operation. Please discuss your emotional concerns with your health care provider. What are the complications of hysterectomy? As with any surgery, there is a slight chance that problems may occur. Problems could include bloodclots, severe infection, bleeding after surgery, bowel blockage, urinary tract injury or problems related to anesthesia. When should I call my health care provider? Call your health care provider if you have: Bright red vaginal bleeding A fever over 100 F Difficulty urinating, burning feeling when urinating or frequent urination Increasing amount of pain Copyright 2723-1261 [facility]. All rights reserved This information is provided by the [facility] and is not intended to replace the medical advice of your doctor or health care provider. Please consult your health care provider for advice about a specific medical condition. For additional written health information, please contact the [facility] at the [facility] or toll-free extension [phone]. This document was last reviewed on: 2001 index#4852 documented in this encounterWestern [facility]24 NoteHNO ID: [id number] Author: SUZE PLEITEZ APRN.CNM Service: ? 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 Lakeisha Topete is a 53 year old female who presents for problem visit for vaginal bleeding. HPI: Presents today for vaginal bleeding that has been daily for past two years after uterine ablation. States bleeding is daily and has increased. Usually fills about 3 pads a day, last week filled a pack of pads. Denies any pain. Denies any clots. Current partner x 5 years, denies any concerns for STDs and declines testing. Gets dizzy and lightheaded at times, KRYSTAL and likely due to menorrhagia, no other sources. Last Pap 09/26/2018 Negative, HPV negative OB History T0 L5 SAB5 IAB0 Ectopic0 Multiple0 Live Births0 [employer] History LMP: 01/25/2023 (Approximate), Having periods Age at Menarche: Age at First : Age at Menopause: [employer] History Comments: Sexual Activity: Yes; Male Contraception: Tubal Ligation PAST MEDICAL HISTORY No date: Allergic rhinitis, cause unspecified 09/26/2010: Depression No date: Diabetes mellitus (HCC) 07/24/2011: Morbid obesity (HCC) No date: Other combinations of endocrine dysfunction No date: Sprain of neck No date: Unspecified asthma(493.90) PAST SURGICAL HISTORY 09/20/2009: LAPAROSCOPIC APPENDECTOMY No date: LAPS SURG CHOLECYSTECTOMY W/CHOLANGIOGRAPHY Comment: IOC - non draining No date: LIG/TRNSXJ FLP TUBE ABDL/VAG APPR UNI/BI Comment: Tubal ligation No date: TONSILLECTOMY PRIMARY/SECONDARY Comment: Tonsillectomy FAMILY HISTORY Problem Relation Age of Onset COPD Father Coronary Artery Disease Father of [place] Cancer Mother breast cancer Diabetes Mother Heart [...] Use Smoking status: Never Smokeless tobacco: Never Tobacco comments: VAPE Vaping Use Vaping status: Some Days Substance Use Topics Alcohol use: Not Currently Drug use: Never Current Outpatient Medications Medication Sig simvastatin (ZOCOR) 80 mg tablet Take 1 tablet by mouth once daily. ferrous sulfate 325 mg (65 mg iron) tablet Take 1 tablet by mouth two times a day. omeprazole (PRILOSEC) 40 mg capsule Take by mouth. glipiZIDE (GLUCOTROL XL) 5 mg 24 hr tablet Take 1 tablet by mouth once daily. ARIPiprazole (ABILIFY) 5 mg tablet Take 1 tablet by mouth once daily. For 30 days FLUoxetine (PROZAC) 20 mg capsule Take 1 capsule by mouth once daily. losartan (COZAAR) 25 mg tablet Take 1 tablet by mouth once daily. For 30 days meclizine (ANTIVERT) 25 mg tab Take 1 tablet by mouth two times a day as needed (dizziness). metFORMIN (GLUCOPHAGE) 500 mg tablet Take 500 mg by mouth twice daily. acetaminophen (TYLENOL EXTRA STRENGTH) 500 mg tablet Take 1 tablet by mouth every 6 hours as needed for pain. Ipratropium (ATROVENT) 17 mcg/actuation inhaler Inhale 2 Puffs as instructed every 6 hours. fluticasone (FLONASE) 50 mcg/actuation nasal spray Use 1 [place] in each nostril once daily. mometasone-formoterol (DULERA) 100-5 mcg/actuation inhaler Inhale 2 Puffs as instructed twice daily. albuterol HFA (PROAIR HFA) 90 mcg/actuation inhaler Inhale 2 Puffs as instructed every 4 hours as needed for Wheezing/Shortness of Breath. acetaminophen (TYLENOL) 325 mg tablet Take 325 mg by mouth every 6 hours as needed. Take two tablets every 6 hours as needed for pain. No current facility-administered medications for this visit. Allergies As of Date: 10/20/2023 Allergen Noted Reaction PENICILLINS 08/06/2005 Fully Assessed 10/20/2023 REVIEW OF SYSTEMS Abdomen: No bloating, early satiety, indigestion, or increased flatulence. No abdominal pain, nausea, vomiting, diarrhea, or constipation. Bladder: No dysuria, gross hematuria, urinary frequency, urinary urgency, or incontinence. Breast: No breast lumps, nipple d/c, overlying skin changes, redness or skin retraction. Expanded ROS: N/A Allergies and current medication updated:Yes EXAM: BP 130/74 Wt 188 lb (85.3kg) LMP 01/25/2023 GENERAL: pleasant, female in no apparent distress HEENT: Normocephalic and atraumatic NECK: Supple and full range of motion DERMATOLOGY: Normal and without lesions CHEST: Normal inspiratory effort ABDOMEN: soft, non-tender, and no masses PELVIC: external genitalia normal, normal Bartholin's glands, urethra, Worden's glands, no vulvar lesions, no cervical lesions, good vaginal support, physiologic discharge present, normal appearing perineal body and perianal region. Bright red blood in vag (more content not included)...[facility]08-21-2024 History of Present illness Narrative* Suze Pleitez APRN.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 Lakeisha Topete is a 53 year old female who presents for problem visit for vaginal bleeding. HPI: Presents today for vaginal bleeding that has been daily for past two years after uterine ablation. States bleeding is daily and has increased. Usually fills about 3 pads a day, last week filled a pack of pads. Denies any pain. Denies any clots. Current partner x 5 years, denies any concerns for STDs and declines testing. Gets dizzy and lightheaded at times, KRYSTAL and likely due to menorrhagia,no other sources. Last Pap 09/26/2018 Negative, HPV negative OB History T0 L5 SAB5 IAB0 Ectopic0 Multiple0 Live Births0 [employer] History LMP: 01/25/2023 (Approximate), Having periods Age at Menarche: Age at First : Age at Menopause: [employer] History Comments: Sexual Activity: Yes; Male Contraception: Tubal Ligation PAST MEDICAL HISTORY No date: Allergic rhinitis, cause unspecified 09/26/2010: Depression No date: Diabetes mellitus (HCC) 07/24/2011: Morbid obesity (HCC) No date: Other combinations of endocrine dysfunction No date: Sprain of neck No date: Unspecified asthma(493.90) PAST SURGICAL HISTORY 09/20/2009: LAPAROSCOPIC APPENDECTOMY No date: LAPS SURG CHOLECYSTECTOMY W/CHOLANGIOGRAPHY Comment: IOC - non draining No date: LIG/TRNSXJ FLP TUBE ABDL/VAG APPR UNI/BI Comment: Tubal ligation No date: TONSILLECTOMY PRIMARY/SECONDARY <AGE 12 Comment: Tonsillectomy FAMILY HISTORY Problem Relation Age of Onset COPD Father Coronary Artery Disease Father of [place] Cancer Mother breast cancer Diabetes Mother Heart [...] Use Smoking status: Never Smokeless tobacco: Never Tobacco comments: VAPE Vaping Use Vaping status: Some Days Substance Use Topics Alcohol use: Not Currently Drug use: Never Current Outpatient Medications Medication Sig simvastatin (ZOCOR) 80 mg tablet Take 1 tablet by mouth once daily. ferrous sulfate 325 mg (65 mg iron) tablet Take 1 tablet by mouth two times a day. omeprazole (PRILOSEC) 40 mg capsule Take by mouth. glipiZIDE (GLUCOTROL XL) 5 mg 24 hr tablet Take 1 tablet by mouth once daily. ARIPiprazole (ABILIFY) 5 mg tablet Take 1 tablet by mouth once daily. For 30 days FLUoxetine (PROZAC) 20 mg capsule Take 1 capsule by mouth once daily. losartan (COZAAR) 25 mg tablet Take 1 tablet by mouth once daily. For 30 days meclizine (ANTIVERT) 25 mg tab Take 1 tablet by mouth two times a day as needed (dizziness). metFORMIN (GLUCOPHAGE) 500 mg tablet Take 500 mg by mouth twice daily. acetaminophen (TYLENOL EXTRA STRENGTH) 500 mg tablet Take 1 tablet by mouth every 6 hours as neededfor pain. Ipratropium (ATROVENT) 17 mcg/actuation inhaler Inhale 2 Puffs as instructed every 6 hours. fluticasone (FLONASE) 50 mcg/actuation nasal spray Use 1 [place] in each nostril once daily. mometasone-formoterol (DULERA) 100-5 mcg/actuation inhaler Inhale 2 Puffs as instructed twice daily. albuterol HFA (PROAIR HFA) 90 mcg/actuation inhaler Inhale 2 Puffs as instructed every 4 hours as needed for Wheezing/Shortness of Breath. acetaminophen (TYLENOL) 325 mg tablet Take 325 mg by mouth every 6 hours as needed. Take two tablets every 6 hours as needed for pain. No current facility-administered medications for this visit. Allergies As of Date: 10/20/2023 Allergen Noted Reaction PENICILLINS 08/06/2005 Fully Assessed 10/20/2023 REVIEW OF SYSTEMS Abdomen: No bloating, early satiety, indigestion, or increased flatulence. No abdominal pain, nausea, vomiting, diarrhea, or constipation. Bladder: No dysuria, gross hematuria, urinary frequency, urinary urgency, or incontinence. Breast: No breast lumps, nipple d/c, overlying skin changes, redness or skin retraction. Expanded ROS: N/A Allergies and current medication updated:Yes EXAM: BP 130/74 Wt 188 lb (85.3kg) LMP 01/25/2023 GENERAL: pleasant, female in no apparent distress HEENT: Normocephalic and atraumatic NECK: Supple and full range of motion DERMATOLOGY: Normal and without lesions CHEST: Normal inspiratory effort ABDOMEN: soft, non-tender, and no masses PELVIC: external genitalia normal, normal Bartholin's glands, urethra, Worden's glands, no vulvar lesions, no cervical lesions, good vaginal support, physiologic discharge present, normal appearing perineal body and perianal region. Bright red blood in vaginal vault coming from cervical os. BIMANUAL: uterus normal size, shape and consistency, no adnexal masses, and non-tender NEURO: alert and oriented x3,exam grossly non-focal EXTREMITIES: normal ASSESSMENT AND PLAN: 1. Abnormal uterine bleeding (AUB) - ICD9: 626.9, ICD10: N93.9 (primary diagnosis) - THYROID STIMULATING HORMONE - PROLACTIN - Endometrial biopsy, history of uterine ablation but will attempt - Pelvic US - Discussed with patient after US can give Aygestin taper. She is ok not having this today but willcall if bleeding picks back up. - Reviewed after ablation hysterectomy is most likely option. - Due for pap smear, unable to complete today due to amount of bleeding at cervical os. Will need to return for annual exam or can attempt pap at biopsy 2. Iron deficiency anemia due to chronic blood loss - ICD9: 280.0, ICD10: D50.0 -Continue iron supplement -Will repeat labs after bleeding decreased in about 4 weeks. Suze Pleitez APRN.CNM [facility] NoteHNO ID: [id number] Author: ANDREA BROWN APRN.CNP Service: ? Author Type: Nurse Practitioner Type: Progress Notes Filed: 10/04/2023 13:22 Note Text: Nontoxic-appearing female presents urgent care accompanied by family member. Chief complaint syncopal episode. Patient states she passed out yesterday at work. States believes it was from low blood sugar. States still having dizziness and headaches today. States feels like she wants to pass out again. Feels like her blood sugars too low. Checked at home was 150. States this is low for her. With presenting symptoms I recommended patient be seen ED for further evaluation care. Will be accompanied by family member to emergency room. Presents to [place] [facility]. [facility] Brown [facility] History of Present illness Narrative* Andrea Brown APRN.CNP - 10/04/2023 12:55 PM EDT Nontoxic-appearing female presents urgent care accompanied by family member. Chief complaint syncopal episode. Patient states she passed out yesterday at work. States believes it was from low blood sugar. States still having dizziness and headaches today. States feels like she wants to pass out again. Feels like her blood sugars too low. Checked at home was 150. States this is low for her. With presenting symptoms I recommended patient be seen ED for further evaluation care. Will be accompaniedby family member to emergency room. Presents to [place] [facility]. Andrea Brown APRN.CNP documented in this encounterWestern [facility]07-[facility]24 NoteHNO ID: [id number] Author: JOSE EDUARDO DOW MD Service: ? Author Type: Physician Type: Progress Notes Filed: 09/24/2023 13:54 Note Text: Patient presents with: Derm Problem: left buttock area lesion x 4-5 days, diarrhea, vomiting and bilateral ear pain x this am HPI: Skin Lesion: Location: left buttock Duration: 4 days Pruritis/Pain: tender Drainage/blister/pustule/ulceration: drained mucus and core yesterday in the shower Treatment: Triple antibiotic ointment Feeling sick since yesterday. Positive symptoms: bilateral Earache, Nausea, Vomiting, Diarrhea, chronic chills, fatigue, chronic vaginal bleeding Negative symptoms: Cough, Sore throat, Nasal Congestion, Rhinorrhea, fever, melena, hematochezia, hematemesis Reports history of uterine procedure with recommendation for hysterectomy if bleeding did not stop. She has never had a colonoscopy. MEDICATIONS: Current Outpatient Medications Medication Sig simvastatin (ZOCOR) 80 mg tablet Take 1 tablet by mouth once daily. ferrous sulfate 325 mg (65 mg iron) tablet Take 1 tablet by mouth two times a day. omeprazole (PRILOSEC) 40 mg capsule Take by mouth. glipiZIDE (GLUCOTROL XL) 5 mg 24 hr tablet Take 1 tablet by mouth once daily. ARIPiprazole (ABILIFY) 5 mg tablet Take 1 tablet by mouth once daily. For 30 days FLUoxetine (PROZAC) 20 mg capsule Take 1 capsule by mouth once daily. losartan (COZAAR) 25 mg tablet Take 1 tablet by mouth once daily. For 30 days meclizine (ANTIVERT) 25 mg tab Take 1 tablet by mouth two times a day as needed (dizziness). metFORMIN (GLUCOPHAGE) 500 mg tablet Take 500 mg by mouth twice daily. acetaminophen (TYLENOL EXTRA STRENGTH) 500 mg tablet Take 1 tablet by mouth every 6 hours as needed for pain. Ipratropium (ATROVENT) 17 mcg/actuation inhaler Inhale 2 Puffs as instructed every 6 hours. fluticasone (FLONASE) 50 mcg/actuation nasal spray Use 1 [place] in each nostril once daily. mometasone-formoterol (DULERA) 100-5 mcg/actuation inhaler Inhale 2 Puffs as instructed twice daily. albuterol HFA (PROAIR HFA) 90 mcg/actuation inhaler Inhale 2 Puffs as instructed every 4 hours as needed for Wheezing/Shortness of Breath. acetaminophen (TYLENOL) 325 mg tablet Take 325 mg by mouth every 6 hours as needed. Take two tablets every 6 hours as needed for pain. No current facility-administered medications for this visit. ALLERGIES: ALLERGIES Allergen Reactions Penicillins VITALS: BP 122/72 Pulse 66 Temp 36.2 ?C (97.2 ?F) Resp 16 Wt 86 kg (189 lb 9.5 oz) LMP 01/25/2023 (Approximate) SpO2 100% BMI 39.63 kg/m? PHYSICAL EXAM: GEN: mildly ill appearing HEENT: PERRL, EOMI, conjunctiva clear Ears: canals clear. 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 left lateral buttock has 5mm white moist ulceration. No erythema, induration, or fluctuant collection. Latest Ref Rng 08/24/2023 08/31/2023 WBC 3.70 - 11.00 k/uL 9.40 RBC 3.90 - 5.20 m/uL 4.27 Hemoglobin 11.5 - 15.5 g/dL 9.4 (L) Hematocrit 36.0 - 46.0 % 32.3 (L) MCV 80.0 - 100.0 fL 75.6 (L) MCH 26.0 - 34.0 pg 22.0 (L) MCHC 30.5 - 36.0 g/dL 29.1 (L) RDW-CV 11.5 - 15.0 % 17.4 (H) Platelet Count 150 - 400 k/uL 313 MPV 9.0 - 12.7 fL 11.1 Neut% % 64.0 Abs Neut (ANC) 1.45 - 7.50 k/uL 6.01 Lymph% % 26.3 Abs Lymph 1.00 - 4.00 k/uL 2.47 [place]% % 6.5 Abs [place] <0.87 k/uL 0.61 Eosin% % 2.3 Abs Eosin <0.46 k/uL 0.22 Baso% % 0.4 Abs Baso <0.11 k/uL 0.04 Immature Gran % % 0.5 IMMATURE GRANS (ABS) <0.10 k/uL 0.05 NRBC /100 WBC 0.0 Absolute nRBC <0.01 k/uL <0.01 DTYPE Auto Iron 41 - 186 ug/dL 17 (L) TIBC 232 - 386 ug/dL 400 (H) Transferrin Saturation 15.0 - 57.0 % 4.3 (L) Ferritin 14.7 - 205.1 ng/mL 5.7 (L) Folate >4.7 ng/mL 6.9 Vitamin B12 232 - 1,245 pg/mL 379 ASSESSMENT/PLAN: 1. Vomiting and diarrhea - ICD9: 787.03, 787.91, ICD10: R11.10, R19.7 (primary diagnosis) Hydration with fluids encouraged. Resume normal solid intake as tolerated. Follow up in the ER with signs of dehydration, increasing abdominal pain, high fever, or blood in vomit or stool. 2. Ulceration, skin (HCC) - ICD9: 707.9, ICD10: L98.499 Suspect drained pustule/abscess by history. Expectant management with triple antibiotic ointment and bandage. Follow up with signs of worsening infection such as increasing redness, pain, swelling, purulent drainage, or fever/malaise. 3. Iron deficiency anemia, unspecified iron deficiency anemia type - ICD9: 280.9, ICD10: D50.9 Patient was not aware of low Hb and iron on recent labs. Patient made aware PCP had attempted to c (more content not included)...[facility] 09-24-[facility] History of Present illness Narrative* Jose Eduardo Dow MD - 09/24/2023 12:44 PM EDT Patient presents with: Derm Problem: left buttock area lesion x 4-5 days, diarrhea, vomiting and bilateral ear pain x thisam HPI: Skin Lesion: Location: left buttock Duration: 4 days Pruritis/Pain: tender Drainage/blister/pustule/ulceration: drained mucus and core yesterday in the shower Treatment: Triple antibiotic ointment Feeling sick since yesterday. Positive symptoms: bilateral Earache, Nausea, Vomiting, Diarrhea, chronic chills, fatigue, chronic vaginal bleeding Negative symptoms: Cough, Sore throat, Nasal Congestion, Rhinorrhea, fever, melena, hematochezia, hematemesis Reports history of uterine procedure with recommendation for hysterectomy if bleeding did not stop.She has never had a colonoscopy. MEDICATIONS: Current Outpatient Medications Medication Sig simvastatin (ZOCOR) 80 mg tablet Take 1 tablet by mouth once daily. ferrous sulfate 325 mg (65 mg iron) tablet Take 1 tablet by mouth two times a day. omeprazole (PRILOSEC) 40 mg capsule Take by mouth. glipiZIDE (GLUCOTROL XL) 5 mg 24 hr tablet Take 1 tablet by mouth once daily. ARIPiprazole (ABILIFY) 5 mg tablet Take 1 tablet by mouth once daily. For 30 days FLUoxetine (PROZAC) 20 mg capsule Take 1 capsule by mouth once daily. losartan (COZAAR) 25 mg tablet Take 1 tablet by mouth once daily. For 30 days meclizine (ANTIVERT) 25 mg tab Take 1 tablet by mouth two times a day as needed (dizziness). metFORMIN (GLUCOPHAGE) 500 mg tablet Take 500 mg by mouth twice daily. acetaminophen (TYLENOL EXTRA STRENGTH) 500 mg tablet Take 1 tablet by mouth every 6 hours as neededfor pain. Ipratropium (ATROVENT) 17 mcg/actuation inhaler Inhale 2 Puffs as instructed every 6 hours. fluticasone (FLONASE) 50 mcg/actuation nasal spray Use 1 [place] in each nostril once daily. mometasone-formoterol (DULERA) 100-5 mcg/actuation inhaler Inhale 2 Puffs as instructed twice daily. albuterol HFA (PROAIR HFA) 90 mcg/actuation inhaler Inhale 2 Puffs as instructed every 4 hours as needed for Wheezing/Shortness of Breath. acetaminophen (TYLENOL) 325 mg tablet Take 325 mg by mouth every 6 hours as needed. Take two tablets every 6 hours as needed for pain. No current facility-administered medications for this visit. ALLERGIES: ALLERGIES Allergen Reactions Penicillins VITALS: BP 122/72 Pulse 66 Temp 36.2 C (97.2 F) Resp 16 Wt 86 kg (189 lb 9.5 oz) LMP 01/25/2023 (Approximate) SpO2 100% BMI 39.63 kg/m PHYSICAL EXAM: GEN: mildly ill appearing HEENT: PERRL, EOMI, conjunctiva clear Ears: canals clear. 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 left lateral buttock has 5mm white moist ulceration. No erythema, induration, or fluctuant collection. Latest Ref Rng 08/24/2023 08/31/2023 WBC 3.70 - 11.00 k/uL 9.40 RBC 3.90 - 5.20 m/uL 4.27 Hemoglobin 11.5 - 15.5 g/dL 9.4 (L) Hematocrit 36.0 - 46.0 % 32.3 (L) MCV 80.0 - 100.0 fL 75.6 (L) MCH 26.0 - 34.0 pg 22.0 (L) MCHC 30.5 - 36.0 g/dL 29.1 (L) RDW-CV 11.5 - 15.0 % 17.4 (H) Platelet Count 150 - 400 k/uL 313 MPV 9.0 - 12.7 fL 11.1 Neut% % 64.0 Abs Neut (ANC) 1.45 - 7.50 k/uL 6.01 Lymph% % 26.3 Abs Lymph 1.00 - 4.00 k/uL 2.47 [place]% % 6.5 Abs [place] <0.87 k/uL 0.61 Eosin% % 2.3 Abs Eosin <0.46 k/uL 0.22 Baso% % 0.4 Abs Baso <0.11 k/uL 0.04 Immature Gran % % 0.5 IMMATURE GRANS (ABS) <0.10 k/uL 0.05 NRBC /100 WBC 0.0 Absolute nRBC <0.01 k/uL <0.01 DTYPE Auto Iron 41 - 186 ug/dL 17 (L) TIBC 232 - 386 ug/dL 400 (H) Transferrin Saturation 15.0 - 57.0 % 4.3 (L) Ferritin 14.7 - 205.1 ng/mL 5.7 (L) Folate >4.7 ng/mL 6.9 Vitamin B12 232 - 1,245 pg/mL 379 ASSESSMENT/PLAN: 1. Vomiting and diarrhea - ICD9: 787.03, 787.91, ICD10: R11.10, R19.7 (primary diagnosis) Hydration with fluids encouraged. Resume normal solid intake as tolerated. Follow up in the ER with signs of dehydration, increasing abdominal pain, high fever, or blood in vomit or stool. 2. Ulceration, skin (HCC) - ICD9: 707.9, ICD10: L98.499 Suspect drained pustule/abscess by history. Expectant management with triple antibiotic ointment and bandage. Follow up with signs of worsening infection such as increasing redness, pain, swelling, purulent drainage, or fever/malaise. 3. Iron deficiency anemia, unspecified iron deficiency anemia type - ICD9: 280.9, ICD10: D50.9 Patient was not aware of low Hb and iron on recent labs. Patient made aware PCP had attempted to contact her and recommended follow-up. Although anemia is most likely secondary to menorrhagia; she isdue for screening colonoscopy and upper endoscopy may also be indicated for anemia workup. Jose Eduardo Dow MD [facility] Telephone encounter Note * Telephone Encounter - Susy Mac MA - 09/03/2023 3:37 PM EDT Daniel on pt. with all information. Susy Mac MA [facility]07-[facility] Miscellaneous Notes* Telephone Encounter - Susy Mac MA - 09/03/2023 3:37 PM EDT Daniel on pt. Vm with all information. Susy Mac MA * Telephone Encounter - Desire Lanier APRN.CNP - 09/03/2023 3:31 PM EDT Patient's Hgb is still low. I want her to complete a fecal occult blood test. Has she had a colonoscopy before? If so, where and when? documented in [facility] encounterWestern [facility] Telephone encounter Note * Telephone Encounter - Desire Lanier APRN.CNP - 09/03/2023 3:31 PM EDT Patient's Hgb is still low. I want her to complete a fecal occult blood test. Has she had a colonoscopy before? If so, where and when? [facility] NoteHNO ID: [id number] Author: PASQUALE HOLLINS PA Service: ? Author Type: Physician Blender Helper Type: Progress Notes Filed: 08/31/2023 13:47 Note Text: This note was created using Trademarkiariter. Subjective Lakeisha Topete is a 53 year old female. HPI 53-year-old female presents for vomiting and diarrhea since last night. Patient states she started feeling sick last night. This morning she had vomiting x 1 episode. She has had 3 episodes of diarrhea today. No blood in stool. No abdominal pain. No fevers, but did felt chilled yesterday. No cough sore throat, runny nose. She does report she had a little bit of right ear pain. She ate hotdogs last night. Her boyfriend is sick with similar symptoms who ate the same food. No other complaint. PAST MEDICAL HISTORY Diagnosis Date Allergic rhinitis, cause unspecified Depression 09/26/2010 Diabetes mellitus (HCC) Morbid obesity (HCC) 07/24/2011 Other combinations of endocrine dysfunction Sprain of neck Unspecified asthma(493.90) PAST SURGICAL HISTORY Procedure Laterality Date LAPAROSCOPIC APPENDECTOMY 09/20/2009 LAPS SURG CHOLECYSTECTOMY W/CHOLANGIOGRAPHY IOC - non draining LIG/TRNSXJ FLP TUBE ABDL/VAG APPR UNI/BI Tubal ligation TONSILLECTOMY PRIMARY/SECONDARY Tonsillectomy ALLERGIES Penicillins MEDICATIONS simvastatin (ZOCOR) 80 mg tablet Take 1 tablet by mouth once daily. ferrous sulfate 325 mg (65 mg iron) tablet Take 1 tablet by mouth two times a day. omeprazole (PRILOSEC) 40 mg capsule Take by mouth. glipiZIDE (GLUCOTROL XL) 5 mg 24 hr tablet Take 1 tablet by mouth once daily. ARIPiprazole (ABILIFY) 5 mg tablet Take 1 tablet by mouth once daily. For 30 days FLUoxetine (PROZAC) 20 mg capsule Take 1 capsule by mouth once daily. losartan (COZAAR) 25 mg tablet Take 1 tablet by mouth once daily. For 30 days meclizine (ANTIVERT) 25 mg tab Take 1 tablet by mouth two times a day as needed (dizziness). metFORMIN (GLUCOPHAGE) 500 mg tablet Take 500 mg by mouth twice daily. acetaminophen (TYLENOL EXTRA STRENGTH) 500 mg tablet Take 1 tablet by mouth every 6 hours as needed for pain. Ipratropium (ATROVENT) 17 mcg/actuation inhaler Inhale 2 Puffs as instructed every 6 hours. fluticasone (FLONASE) 50 mcg/actuation nasal spray Use 1 [place] in each nostril once daily. mometasone-formoterol (DULERA) 100-5 mcg/actuation inhaler Inhale 2 Puffs as instructed twice daily. albuterol HFA (PROAIR HFA) 90 mcg/actuation inhaler Inhale 2 Puffs as instructed every 4 hours as needed for Wheezing/Shortness of Breath. acetaminophen (TYLENOL) 325 mg tablet Take 325 mg by mouth every 6 hours as needed. Take two tablets every 6 hours as needed for pain. FAMILY HISTORY Problem Relation Age of Onset COPD Father Coronary Artery Disease Father of [place] Cancer Mother breast cancer Diabetes Mother Heart [...] Use Smoking status: Never Smokeless tobacco: Never Tobacco comments: VAPE Vaping Use Vaping Use: Some days Substance Use Topics Alcohol use: Not Currently Drug use: Never Review of Systems Constitutional: Negative for chills and fever. HENT: Negative for congestion, ear pain and sore throat. Respiratory: Negative for cough and shortness of breath. Cardiovascular: Negative for chest pain. Gastrointestinal: Positive for diarrhea, nausea and vomiting. Negative for abdominal pain. Objective BP 130/82 Pulse 73 Temp 36.6 ?C (97.9 ?F) (Tympanic) Resp 18 Wt 84.7 kg (186 lb 11.7 oz) LMP 01/25/2023 (Approximate) SpO2 98% BMI 39.03 kg/m? Physical Exam Vitals and nursing note reviewed. Constitutional: General: She is not in acute distress. Appearance: Normal appearance. She is not toxic-appearing. HENT: Right Ear: Tympanic membrane and ear canal normal. Left Ear: Tympanic membrane and ear canal normal. Nose: Nose normal. Mouth/Throat: Mouth: Mucous membranes are moist. Eyes: Conjunctiva/sclera: Conjunctivae normal. Cardiovascular: Rate and Rhythm: Normal rate and regular rhythm. Pulmonary: Effort: Pulmonary effort is normal. Breath sounds: Normal breath sounds. Abdominal: General: Abdomen is flat. Palpations: Abdomen is soft. Tenderness: There is no abdominal tenderness. There is no guarding or rebound. Skin: General: Skin is warm and dry. Neurological: Mental Status: She is alert. Assessment and Plan ASSESSMENT/PLAN: 1. Vomiting and diarrhea - ICD9: 787.03, 787.91, ICD10: R11.10, R19.7 -Suspect viral illness vs food poisoning. -Patient is tolerating p.o. She has a Sprite she is drin (more content not included)...[facility]07-02-[facility] History of Present illness Narrative* Pasquale Hollins PA - 08/31/2023 1:45 PM EDT This note was created using NoteWriter. Subjective Lakeisha Topete is a 53 year old female. HPI 53-year-old female presents for vomiting and diarrhea since last night. Patient states she started feeling sick last night. This morning she had vomiting x 1 episode. She has had 3 episodes of diarrhea today. No blood in stool. No abdominal pain. No fevers, but did felt chilled yesterday. No cough sore throat, runny nose. She does report she had a little bit of right ear pain. She ate hotdogslast night. Her boyfriend is sick with similar symptoms who ate the same food. No other complaint. PAST MEDICAL HISTORY Diagnosis Date Allergic rhinitis, cause unspecified Depression 09/26/2010 Diabetes mellitus (HCC) Morbid obesity (HCC) 07/24/2011 Other combinations of endocrine dysfunction Sprain of neck Unspecified asthma(493.90) PAST SURGICAL HISTORY Procedure Laterality Date LAPAROSCOPIC APPENDECTOMY 09/20/2009 LAPS SURG CHOLECYSTECTOMY W/CHOLANGIOGRAPHY IOC - non draining LIG/TRNSXJ FLP TUBE ABDL/VAG APPR UNI/BI Tubal ligation TONSILLECTOMY PRIMARY/SECONDARY <AGE 12 Tonsillectomy ALLERGIES Penicillins MEDICATIONS simvastatin (ZOCOR) 80 mg tablet Take 1 tablet by mouth once daily. ferrous sulfate 325 mg (65 mg iron) tablet Take 1 tablet by mouth two times a day. omeprazole (PRILOSEC) 40 mg capsule Take by mouth. glipiZIDE (GLUCOTROL XL) 5 mg 24 hr tablet Take 1 tablet by mouth once daily. ARIPiprazole (ABILIFY) 5 mg tablet Take 1 tablet by mouth once daily. For 30 days FLUoxetine (PROZAC) 20 mg capsule Take 1 capsule by mouth once daily. losartan (COZAAR) 25 mg tablet Take 1 tablet by mouth once daily. For 30 days meclizine (ANTIVERT) 25 mg tab Take 1 tablet by mouth two times a day as needed (dizziness). metFORMIN (GLUCOPHAGE) 500 mg tablet Take 500 mg by mouth twice daily. acetaminophen (TYLENOL EXTRA STRENGTH) 500 mg tablet Take 1 tablet by mouth every 6 hours as neededfor pain. Ipratropium (ATROVENT) 17 mcg/actuation inhaler Inhale 2 Puffs as instructed every 6 hours. fluticasone (FLONASE) 50 mcg/actuation nasal spray Use 1 [place] in each nostril once daily. mometasone-formoterol (DULERA) 100-5 mcg/actuation inhaler Inhale 2 Puffs as instructed twice daily. albuterol HFA (PROAIR HFA) 90 mcg/actuation inhaler Inhale 2 Puffs as instructed every 4 hours as needed for Wheezing/Shortness of Breath. acetaminophen (TYLENOL) 325 mg tablet Take 325 mg by mouth every 6 hours as needed. Take two tablets every 6 hours as needed for pain. FAMILY HISTORY Problem Relation Age of Onset COPD Father Coronary Artery Disease Father of [place] Cancer Mother breast cancer Diabetes Mother Heart [...] Use Smoking status: Never Smokeless tobacco: Never Tobacco comments: VAPE Vaping Use Vaping Use: Some days Substance Use Topics Alcohol use: Not Currently Drug use: Never Review of Systems Constitutional: Negative for chills and fever. HENT: Negative for congestion, ear pain and sore throat. Respiratory: Negative for cough and shortness of breath. Cardiovascular: Negative for chest pain. Gastrointestinal: Positive for diarrhea, nausea and vomiting. Negative for abdominal pain. Objective BP 130/82 Pulse 73 Temp 36.6 C (97.9 F) (Tympanic) Resp 18 Wt 84.7 kg (186 lb 11.7 oz) LMP 01/25/2023 (Approximate) SpO2 98% BMI 39.03 kg/m Physical Exam Vitals and nursing note reviewed. Constitutional: General: She is not in acute distress. Appearance: Normal appearance. She is not toxic-appearing. HENT: Right Ear: Tympanic membrane and ear canal normal. Left Ear: Tympanic membrane and ear canal normal. Nose: Nose normal. Mouth/Throat: Mouth: Mucous membranes are moist. Eyes: Conjunctiva/sclera: Conjunctivae normal. Cardiovascular: Rate and Rhythm: Normal rate and regular rhythm. Pulmonary: Effort: Pulmonary effort is normal. Breath sounds: Normal breath sounds. Abdominal: General: Abdomen is flat. Palpations: Abdomen is soft. Tenderness: There is no abdominal tenderness. There is no guarding or rebound. Skin: General: Skin is warm and dry. Neurological: Mental Status: She is alert. Assessment and Plan ASSESSMENT/PLAN: 1. Vomiting and diarrhea - ICD9: 787.03, 787.91, ICD10: R11.10, R19.7 -Suspect viral illness vs food poisoning. -Patient is tolerating p.o. She has a Sprite she is drinking in the room. Appears hydrated on exam. -Recommend bland diet, fluids, rest -Follow-up with PCP if no improvement. Diagnosis and treatment plan were discussed and questions were answered to the patient's satisfaction. Pt acknowledged understanding of concepts and follow up plan. Specific signs and symptoms that would indicate the need for higher level of care were discussed in detail warranting prompt ER evaluation. KLEBER Myles documented in this encounterWestern [facility]07-[facility]24 Instructions* Patient Instructions* Pasquale Hollins PA - 08/31/2023 1:36 PM EDT BRAT DIET (may eat any of the following as tolerated) Bananas Applesauce [place] Saltine Crackers Animal Crackers Pretzels Oatmeal Unsweetened Dry Cereal (Rice Krispies, Cheerios) Plain Baked or Boiled Potato Plain White Rice Plain Noodles All clear liquid listed below CLEAR LIQUID DIET hour) Broth Jello Popsicles Pedialyte Gatorade NO Milk NO Dairy Products documented in this encounterWestern [facility] Hospital06-28-2024 Telephone encounter Note * Telephone Encounter - Susy Mac MA - 08/27/2023 1:10 PM EDT Patient received her my chart message. Susy Mac MA [facility]06-28-[facility]24 Miscellaneous Notes* Telephone Encounter - Susy Mac MA - 08/27/2023 1:10 PM EDT Patient received her my chart message. Susy Mac MA * Telephone Encounter - Olive Florian MA - 08/26/2023 3:43 PM EDT Left a message requesting patient to call back, reminders placed, and lab was unable to add the orders Olive Florian MA * Telephone Encounter - Desire Lanier APRN.CNP - 08/25/2023 7:03 PM EDT A1C stable at 5.9- no change in therapy Lipid panel- LDL still not at goal. We need to increase her statin to 80 mg daily at bedtime.New Rxsent in and recheck in 3 months. Iron panel shows deficiency. She will need to take a twice a day replacement. Rx sent in. Please call lab to have CBC added to labs if possible. Will need to recheck iron panel in 3 months. We can follow up in 6 months for diabetes. documented in this encounterWestern [facility] Hospital06-27-2024 Telephone encounter Note * Telephone Encounter - Olive Florian MA - 08/26/2023 3:43 PM EDT Left a message requesting patient to call back, reminders placed, and lab was unable to add the orders Olive Florian MA [facility]06-[facility] Telephone encounter Note* Telephone Encounter - Desire Lanier APRN.CNP - 08/25/2023 7:03 PM EDT A1C stable at 5.9- no change in therapy Lipid panel- LDL still not at goal. We need to increase her statin to 80 mg daily at bedtime.New Rxsent in and recheck in 3 months. Iron panel shows deficiency. She will need to take a twice a day replacement. Rx sent in. Please call lab to have CBC added to labs if possible. Will need to recheck iron panel in 3 months. We can follow up in 6 months for diabetes. [facility]06-26-[facility] Telephone encounter Note* Telephone Encounter - Wanda Dumont - 08/25/2023 11:14 AM EDT New Patient Referral PCP-PTSD Called patient left vm to call for an appt. Wanda Dumont August 25, 2023 11:15 AM [facility]-26-[facility] Miscellaneous Notes* Telephone Encounter - Wanda Dumont - 08/25/2023 11:14 AM EDT New Patient Referral PCP-PTSD Called patient left vm to call for an appt. Wanda Dumont August 25, 2023 11:15 AM documented in this encounterWestern Reserve Hospital06-25-2024 Instructions* Patient Instructions* Desire Lanier APRN.CNP - 08/24/2023 2:29 PM EDT Ana Bach CNP. Psychiatry [facility] [address] [place] [address] [address]:[phone] [facility] Address: [address] [place] [address], [address] [place] [address] Neurology: Dr.Ted Harmeet MD [facility] [address] [place] [address] Lakisha WestSARAH V[place]LE [id number] documented in this encounterWestern Reserve Hospital06-25-2024 NoteHNO ID: [id number] Author: DESIRE LANIER APRN.CNP Service: ? Author Type: Nurse Practitioner Type: Progress Notes Filed: 09/01/2023 19:35 Note Text: [facility] [address] [place] [address] Dept Dept. Visit Date: August 24, 2023 Ms.Goldie Christoph Topete Date of : 1970 MRN/E #: [id number] Chief Complaint: Patient presents with: Establish Care leg pain: Right leg spasms at night, feels like stabbing pain, and will swell up History of Present Illness Lakeisha Topete is a 53 year old female presenting today as a new patient to establish care. I reviewed past medical, surgical, social, and family histories today and updated chart. Allergies, chronic medications, and supplements were also reviewed. PMH of HLP, depression ,PTSD, asthma, HTN, diabetes. She reports being compliant with her medications. She does need refills on her medications today. DM- 150-200 BS Migraines all the time Constant pain Ibuprofen 800 mg 2 times day Has been Topamax in the past 25 mg daily Was on it back 2012 Hx of seizures Has been having whole body shaking, will have disorientation after No loss of bowel or bladder control Will feel confused and have head pain She is having spasms in her legs Feels like a stabbing pain and has felt they have been more swollen recently HPI PAST MEDICAL HISTORY Diagnosis Date Allergic rhinitis, cause unspecified Depression 09/26/2010 Diabetes mellitus (HCC) Morbid obesity (HCC) 07/24/2011 Other combinations of endocrine dysfunction Sprain of neck Unspecified asthma(493.90) PAST SURGICAL HISTORY Procedure Laterality Date LAPAROSCOPIC APPENDECTOMY 09/20/2009 LAPS SURG CHOLECYSTECTOMY W/CHOLANGIOGRAPHY IOC - non draining LIG/TRNSXJ FLP TUBE ABDL/VAG APPR UNI/BI Tubal ligation TONSILLECTOMY PRIMARY/SECONDARY Tonsillectomy Social History Tobacco Use Smoking status: Never Smokeless tobacco: Never Tobacco comments: VAPE Vaping Use Vaping Use: Some days Substance Use Topics Alcohol use: Not Currently Drug use: Never Social History Social History Narrative Not on file Family History Reviewed Including Cardiac Diseases, Psychiatric Diseases, AND Substance Abuse Problem: COPD Relation: Father Age of Onset: (Not Specified) Problem: Coronary Artery Disease Relation: Father Age of Onset: (Not Specified) Comment: of [place] Problem: Cancer Relation: Mother Age of Onset: (Not Specified) Comment: breast cancer Problem: Diabetes Relation: Mother Age of Onset: (Not Specified) Problem: Heart Relation: Brother Age of Onset: (Not Specified) Problem: Breast Cancer Relation: Sister Age of Onset: (Not Specified) Problem: No Known Problems Relation: Maternal Grandmother Age of Onset: (Not Specified) Problem: No Known Problems Relation: Maternal Grandfather Age of Onset: (Not Specified) Problem: No Known Problems Relation: Paternal Grandmother Age of Onset: (Not Specified) Problem: No Known Problems Relation: Paternal Grandfather Age of Onset: (Not Specified) Problem: No Known Problems Relation: Son Age of Onset: (Not Specified) Problem: No Known Problems Relation: Son Age of Onset: (Not Specified) Problem: No Known Problems Relation: Daughter Age of Onset: (Not Specified) Problem: No Known Problems Relation: Daughter Age of Onset: (Not Specified) Problem: No Known Problems Relation: Daughter Age of Onset: (Not Specified) Problem: No Known Problems Relation: Daughter Age of Onset: (Not Specified) Comment: Adopted ALLERGIES Allergen Reactions Penicillins Current Outpatient Medications Medication Sig omeprazole (PRILOSEC) 40 mg capsule Take by mouth. meclizine (ANTIVERT) 25 mg tab Take 1 tablet by mouth two times a day as needed (dizziness). metFORMIN (GLUCOPHAGE) 500 mg tablet Take 500 mg by mouth twice daily. acetaminophen (TYLENOL EXTRA STRENGTH) 500 mg tablet Take 1 tablet by mouth every 6 hours as needed for pain. Ipratropium (ATROVENT) 17 mcg/actuation inhaler Inhale 2 Puffs as instructed every 6 hours. fluticasone (FLONASE) 50 mcg/actuation nasal spray Use 1 [place] in each nostril once daily. albuterol HFA (PROAIR HFA) 90 mcg/actuation inhaler Inhale 2 Puffs as instructed every 4 hours as needed for Wheezing/Shortness of Breath. acetaminophen (TYLENOL) 325 mg tablet Take 325 mg by mouth every 6 hours as needed. Take two tablets every 6 hours as needed for pain. simvastatin (ZOCOR) 80 mg tablet Take 1 tablet by mouth once daily. ferrous sulfate 325 mg (65 mg iron) tablet Take 1 tablet by mouth two times a day. glipiZIDE (GLUCOTROL XL) 5 mg 24 hr tablet Take 1 tablet by mouth once daily. ARIPiprazole (ABILIFY) 5 mg tablet Take 1 tablet by mouth once daily. For 30 days FLUoxetine (PROZAC) 20 mg capsule Take 1 capsule by mouth o (more content not included)...[facility]06-25-2024 History of Present illness Narrative* Desire Lanier, CHERIE.[employer]PERVISOR [employer] - 08/24/2023 2:15 PM EDT Images from the original note were not included. [facility] Desire Lanier COVER [employer]OVER-[employer] [address] [place] [address] Dept Dept. Visit Date: August 24, 2023 Ms.Goldie Christoph Topete Date of : 1970 MRN/E #: [id number] Chief Complaint: Patient presents with: Establish Care leg pain: Right leg spasms at night, feels like stabbing pain, and will swell up History of Present Illness aLkeisha Topete is a 53 year old female presenting today as a new patient to establish care. I reviewed past medical, surgical, social, and family histories today and updated chart. Allergies, chronic medications, and supplements were also reviewed. PMH of HLP, depression ,PTSD, asthma, HTN, diabetes. She reports being compliant with her medications. She does need refills on her medications today. DM- 150-200 BS Migraines all the time Constant pain Ibuprofen 800 mg 2 times day Has been Topamax in the past 25 mg daily Was on it back 2012 Hx of seizures Has been having whole body shaking, will have disorientation after No loss of bowel or bladder control Will feel confused and have head pain She is having spasms in her legs Feels like a stabbing pain and has felt they have been more swollen recently HPI PAST MEDICAL HISTORY Diagnosis Date Allergic rhinitis, cause unspecified Depression 09/26/2010 Diabetes mellitus (HCC) Morbid obesity (HCC) 07/24/2011 Other combinations of endocrine dysfunction Sprain of neck Unspecified asthma(493.90) PAST SURGICAL HISTORY Procedure Laterality Date LAPAROSCOPIC APPENDECTOMY 09/20/2009 LAPS SURG CHOLECYSTECTOMY W/CHOLANGIOGRAPHY IOC - non draining LIG/TRNSXJ FLP TUBE ABDL/VAG APPR UNI/BI Tubal ligation TONSILLECTOMY PRIMARY/SECONDARY <AGE 14 Tonsillectomy Social History Tobacco Use Smoking status: Never Smokeless tobacco: Never Tobacco comments: VAPE Vaping Use Vaping Use: Some days Substance Use Topics Alcohol use: Not Currently Drug use: Never Social History Social History Narrative Not on file Family History Reviewed Including Cardiac Diseases, Psychiatric Diseases, & Substance Abuse Problem: COPD Relation: Father Age of Onset: (Not Specified) Problem: Coronary Artery Disease Relation: Father Age of Onset: (Not Specified) Comment: of [place] Problem: Cancer Relation: Mother Age of Onset: (Not Specified) Comment: breast cancer Problem: Diabetes Relation: Mother Age of Onset: (Not Specified) Problem: Heart Relation: Brother Age of Onset: (Not Specified) Problem: Breast Cancer Relation: Sister Age of Onset: (Not Specified) Problem: No Known Problems Relation: Maternal Grandmother Age of Onset: (Not Specified) Problem: No Known Problems Relation: Maternal Grandfather Age of Onset: (Not Specified) Problem: No Known Problems Relation: Paternal Grandmother Age of Onset: (Not Specified) Problem: No Known Problems Relation: Paternal Grandfather Age of Onset: (Not Specified) Problem: No Known Problems Relation: Son Age of Onset: (Not Specified) Problem: No Known Problems Relation: Son Age of Onset: (Not Specified) Problem: No Known Problems Relation: Daughter Age of Onset: (Not Specified) Problem: No Known Problems Relation: Daughter Age of Onset: (Not Specified) Problem: No Known Problems Relation: Daughter Age of Onset: (Not Specified) Problem: No Known Problems Relation: Daughter Age of Onset: (Not Specified) Comment: Adopted ALLERGIES Allergen Reactions Penicillins Current Outpatient Medications Medication Sig omeprazole (PRILOSEC) 40 mg capsule Take by mouth. meclizine (ANTIVERT) 25 mg tab Take 1 tablet by mouth two times a day as needed (dizziness). metFORMIN (GLUCOPHAGE) 500 mg tablet Take 500 mg by mouth twice daily. acetaminophen (TYLENOL EXTRA STRENGTH) 500 mg tablet Take 1 tablet by mouth every 6 hours as neededfor pain. Ipratropium (ATROVENT) 17 mcg/actuation inhaler Inhale 2 Puffs as instructed every 6 hours. fluticasone (FLONASE) 50 mcg/actuation nasal spray Use 1 [place] in each nostril once daily. albuterol HFA (PROAIR HFA) 90 mcg/actuation inhaler Inhale 2 Puffs as instructed every 4 hours as needed for Wheezing/Shortness of Breath. acetaminophen (TYLENOL) 325 mg tablet Take 325 mg by mouth every 6 hours as needed. Take two tablets every 6 hours as needed for pain. simvastatin (ZOCOR) 80 mg tablet Take 1 tablet by mouth once daily. ferrous sulfate 325 mg (65 mg iron) tablet Take 1 tablet by mouth two times a day. glipiZIDE (GLUCOTROL XL) 5 mg 24 hr tablet Take 1 tablet by mouth once daily. ARIPiprazole (ABILIFY) 5 mg tablet Take 1 tablet by mouth once daily. For 30 days FLUoxetine (PROZAC) 20 mg capsule Take 1 capsule by mouth once daily. losartan (COZAAR) 25 mg tablet Take 1 tablet by mouth once daily. For 30 days mometasone-formoterol (DULERA) 100-5 mcg/actuation inhaler Inhale 2 Puffs as instructed twice daily. No current facility-administered medications for this visit. Review of Systems Review of Systems Constitutional: Positive for fatigue. Negative for appetite change, chills, diaphoresis, fever and unexpected weight change. Eyes: Positive for visual disturbance. Respiratory: Positive for shortness of breath. Negative for cough, chest tightness and wheezing. Cardiovascular: Positive for leg swelling. Negative for chest pain and palpitations. Gastrointestinal: Negative for abdominal pain, constipation, diarrhea, nausea and vomiting. Genitourinary: Negative. Musculoskeletal: Positive for arthralgias, gait problem and myalgias. Neurological: Positive for dizziness, tremors, weakness, light-headedness, numbness and headaches. Negative for speech difficulty. Psychiatric/Behavioral: Positive for dysphoric mood and sleep disturbance. The patient is nervous/anxious. Vital Signs BP 122/76 Pulse 77 Temp 97.8 Resp 16 Ht 4' 10 (1.47m) Wt 188 lb (85.3kg) SpO2 97% [facility] 01/25/2023 BMI 39.30 kg/(m^2). Physical Exam Vitals and nursing note reviewed. Constitutional: Appearance: She is obese. HENT: Mouth/Throat: Mouth: Mucous membranes are moist. Pharynx: Oropharynx is clear. Eyes: Pupils: Pupils are equal, round, and reactive to light. Neck: Thyroid: No thyromegaly. Cardiovascular: Rate and Rhythm: Normal rate and regular rhythm. Pulses: Normal pulses. Heart sounds: Normal heart sounds, S1 normal and S2 normal. Pulmonary: Effort: Pulmonary effort is normal. Breath sounds: Normal breath sounds and air entry. Musculoskeletal: Cervical back: Neck supple. Right lower leg: No edema. Left lower leg: No edema. Skin: General: Skin is warm and dry. Neurological: General: No focal deficit present. Mental Status: She is alert and oriented to person, place, and time. Sensory: Sensation is intact. Motor: Motor function is intact. Gait: Gait is intact. Psychiatric: Mood and Affect: Affect is flat. Behavior: Behavior is cooperative. Cognition and Memory: Cognition normal. Visit Diagnoses (E11.9) Type 2 diabetes mellitus without complication, without long-term current use of insulin ([facility]) (primary encounter diagnosis) (E78.5) Hyperlipidemia with target LDL less than 130 (F43.10) PTSD (post-traumatic stress disorder) (F33.9) Recurrent major depressive disorder, remission status unspecified ([facility]) (F31.9) Bipolar affective disorder, remission status unspecified ([facility]) (M79.604) Right leg pain (M62.838) Muscle spasm of right leg (I10) Hypertension, essential (Z87.898) History of seizures (R56.9) Convulsions, unspecified convulsion type ([facility]) (J45.40) Moderate persistent asthma, unspecified whether complicated (R51.9) Recurrent headache Assessment and Plan 1. Type 2 diabetes mellitus without complication, without long-term current use of insulin ([facility]) - ICD9: 250.00, ICD10: E11.9 (primary diagnosis) - Control undetermined, due for labs - Continue current medications - Statin prescribed - simvastatin - Blood glucose monitoring on a once daily schedule - Counseled on healthy diet and regular exercise - Discussed need for and benefit of weight loss. BMI 39.29 kg/(m^2) - Discussed diabetic education issues of diabetes complications and monitoring required - Follow up in 3 months, sooner should any other issues arise. - COMPREHENSIVE METABOLIC PANEL - HEMOGLOBIN A1C - GLIPIZIDE ER 5 MG TABLET, EXTENDED RELEASE 24 HR 2. Hyperlipidemia with target LDL less than 130 - ICD9: 272.4, ICD10: E78.5 - Control undetermined, due for labs - Continue current medications - Counseled on healthy diet and regular exercise - Discussed need for and benefit of weight loss. BMI 39.29 kg/(m^2) - SIMVASTATIN 40 MG TABLET - COMPREHENSIVE METABOLIC PANEL - LIPID PANEL BASIC 3. PTSD (post-traumatic stress disorder) - ICD9: 309.81, ICD10: F43.10 - Medication refills, needs to establish with psychiatry for medication management - CONSULT TO PSYCHIATRY - CONSULT TO [facility] - ARIPIPRAZOLE 5 MG TABLET - FLUOXETINE 20 MG CAPSULE 4. Recurrent major depressive disorder, remission status unspecified (HCC) - ICD9: 296.30, ICD10: F33.9 - CONSULT TO PSYCHIATRY - CONSULT TO [facility] 5. Bipolar affective disorder, remission status unspecified (HCC) - ICD9: 296.80, ICD10: F31.9 - ARIPIPRAZOLE 5 MG TABLET 6. Right leg pain - ICD9: 729.5, ICD10: M79.604 - Negative Dede's sign 7. Muscle spasm of right leg - ICD9: 728.85, ICD10: M62.838 - MAGNESIUM - IRON AND TIBC - FERRITIN - FOLATE, SERUM - VITAMIN B12 8. Hypertension, essential - ICD9: 401.9, ICD10: I10 - Controlled - Continue current medications - Recommend home blood pressure monitoring, to bring results to next visit - Encouraged sodium restriction, DASH or Mediterranean diet - Recommend regular aerobic exercise - Discussed need for and benefit of weight loss. BMI 39.29 kg/(m^2) - LOSARTAN 25 MG TABLET 9. History of seizures - ICD9: V13.89, ICD10: Z87.898 - CONSULT TO NEUROLOGY 10. Convulsions, unspecified convulsion type (HCC) - ICD9: 780.39, ICD10: R56.9 - Reports having episodes of shaking with confusion after. She cannot elaborate on her symptoms. - CONSULT TO NEUROLOGY 11. Moderate persistent asthma, unspecified whether complicated - ICD9: 493.90, ICD10: J45.40 - Moderate persistent asthma stable - Continue current medications - Avoidance of triggers recommended - PARKING FOR HANDICAPPED 12. Recurrent headache - ICD9: 784.0, ICD10: R51.9 - Elevated BP? Multifactorial -Vitals were normal, continue to monitor Discussed above plan with patient and/or caregiver. Patient and/or caregiver agreeable with above plan. Desire Lanier APRN.CNP, signed on August 24, 2023 2:15 PM documented in this encounterDavid Ville 10005-04-2024 Discharge summary Author Amari Ashley [facility] July 03, 2023 3:56pm Note Date/Time July 03, 2023 3:56pm [facility] Medical Records Department [address] [place] [address] Emergency Department Summary 07/03/23 MR#: [id number] Acct: [id number] Name: LAKEISHA TOPETE Rep #:[id number] : 1970 53 From: Amari Ashley MD PCP: [facility] atus:PRE ER Location: ED HPI History of Present Illness Chief Complaint: Fall Narrative Narrative: 53-year-old female, [id number], presents with injury to her right hand into her right foot that she sustained prior to arrival. She states that she was trying to move a large office desk, when her right hand got pinned between the desk and the wall. The desk also fell onto her right foot. She did not take anything because she does not have anything at home. She states it was only pinned for a minute or 2. She denies other injuries. She complains of pain along the dorsum of her right hand and on the top of her right foot. [facility] Medical History Asthma Bipolar 1 disorder Diabetes Hyperlipidemia Hypertension Home Medications simvastatin 20 mg tablet 20 mg PO QHS cholesterol 06/28/18 [History Last Taken 07/17/18] albuterol sulfate 90 mcg/actuation aerosol inhaler (Proventil HFA) 2 puff inhalation Q4H PRN PRN Sob &/Or Wheezing 07/18/18 [History Last Taken 07/18/18] fluoxetine 20 mg capsule 20 mg PO DAILY depression 07/18/18 [History Last Taken 07/17/18] metformin 500 mg tablet 500 mg PO BID #20 tabs 05/25/22 [Rx Last Taken Unknown] ondansetron 4 mg disintegrating tablet 4 mg PO Q8H PRN PRN Nausea #7 tabs 08/24/22 [Rx Last Taken Unknown] ondansetron HCl 8 mg tablet 8 mg PO Q8H PRN nausea and vomiting #14 tabs 11/05/22 [Rx Last Taken Unknown] benzonatate 200 mg capsule 200 mg PO TID PRN cough #20 caps 01/04/23 [Rx Last Taken Unknown] budesonide-formoterol HFA 80 mcg-4.5 mcg/actuation aerosol inhaler (Symbicort) 2puff inhalation BID #10.2 grams 01/04/23 [Rx Last Taken Unknown] furosemide 20 mg tablet (Lasix) 20 mg PO DAILY #5 tabs 02/10/23 [Rx Last Taken Unknown] albuterol sulfate 90 mcg/actuation aerosol inhaler (Ventolin HFA) 1 - 2 puff inhalation Q4H PRN PRN Wheezing #1 inh 05/03/23 [Rx Last Taken Unknown] prednisone 20 mg tablet 40 mg (2 x 20 mg) PO DAILY #10 tabs 05/03/23 [Rx Last Taken Unknown] ibuprofen 800 mg tablet 800 mg PO Q8H PRN pain #20 tabs 07/03/23 [Rx Last Taken Unknown] Allergy/AdvReac Type Severity Reaction Status Date / Time Penicillins AdvReac Vomiting Verified 07/03/23 14:13 Surgical History Hx of breast surgery Hx of cholecystectomy Hx of tubal ligation Social History Smoking Status: Never smoker ROS ROS ED ROS Narrative Constitutional: No fever, no chills. HEENT: No sore throat. No neck pain. No loss of vision. No rhinorrhea. Cardiovascular: No chest pain. No palpitations. No pedal edema. Respiratory: No cough, no shortness of breath. Abdominal: No abdominal pain. No nausea. No vomiting. Genitourinary: No dysuria. No hematuria. Musculoskeletal: No myalgias. Right hand pain, right foot pain. Neurologic: No headaches. No dizziness. No lightheadedness. Skin: No rash. No change in color. Psychiatric: No depression. No anxiety. EXAM Physical Exam Narrative Exam Narrative: Afebrile. Vital signs noted. GCS 15. ABCs are intact. HEENT: Normocephalic. Atraumatic. PERRL, EOMI. Neck soft and supple. No pointtenderness or step off. Cardiovascular: Regular rate and rhythm. No murmurs, rubs, or gallops appreciated. Respiratory: No tachypnea. Lungs clear to auscultation bilaterally. Gastrointestinal: Abdomen soft, nontender, with normoactive bowel sounds. No rebound or guarding. Neurological: Awake. Alert. Nonfocal, nonlateralizing. Skin: No rash. Normal color. No pallor. Musculoskeletal: No pedal edema. Full range of motion extremities. Mild tenderness palpation dorsum of right hand along metacarpals. Able to oppose thumb. Full range of motion of all fingers on right hand. Palpable radial pulse. Good capillary refill. Inspection of the right foot reveals tenderness to palpation across the dorsum of the right foot. Palpable dorsalis pedis pulse. Full range of motion of all toes. No tenderness to palpation right ankle and above. Const Vital Signs: 07/03/23 14:13 Temperature 96.1 F L Temperature Source Temporal Pulse Rate 80 Respiratory Rate 16 Blood Pressure 148/79 H Blood Pressure Mean 102 Pulse Ox 97 Oxygen Delivery Method Room Air MDM MDM MDM Narrative Medical decision making narrative: X-rays of the right foot and of the right hand and 3 views each obtained per RN protocol. I independently interpreted the x-rays of the right foot and the right hand and see no evidence of acute fracture. I reviewed the radiology reports for both sets of x-rays which confirms my independent interpretation. She was given an ibuprofen 800 mg tablet here and prescription written at her request. She also requested to be off work today. She will be placed in Fletcher wrap's in her right hand and right foot and continue ice and elevation at home. She will follow-up with primary care. Disposition is discharged home in stable condition. Radiography Diagnostic Testing: Clinical Impression(s) from Imaging Studies Foot X-Ray 07/03/23 14:21 IMPRESSION: No acute osseous abnormality of the right foot. Electronically Signed: Amari Servin MD at 14:53 EDT , Hand X-Ray 07/03/23 14:21 IMPRESSION: Negative right hand x-rays. Electronically Signed: Amari Servin MD at 14:52 EDT , Discharge Plan Triage Chief Complaint: Fall ED Provider: Amari Ashley Dx/Rx/DC Orders Clinical Impression: Contusion of foot, right, Contusion of right hand Instructions: ED Hand Contusion, ED Foot Contusion Prescriptions: New ibuprofen 800 mg tablet 800 mg PO Q8H PRN (Reason: pain) Qty: 20 0RF No Action ondansetron HCl 8 mg tablet 8 mg PO Q8H PRN (Reason: nausea and vomiting) Qty: 14 0RF simvastatin 20 tablet 20 mg PO QHS albuterol sulfate [Proventil HFA] 6.7 GM HFA aerosol inhaler 2 puff inhalation Q4H PRN PRN (Reason: Sob &/Or Wheezing) fluoxetine 20 MG capsule 20 mg PO DAILY Patient Comments: TAKE 1 CAPSULE BY MOUTH DAILY metformin 500 mg tablet 500 mg PO BID Qty: 20 0RF ondansetron 4 mg tablet,disintegrating 4 mg PO Q8H PRN PRN (Reason: Nausea) Qty: 7 0RF budesonide-formoterol [Symbicort] 80-4.5 mcg/actuation HFA aerosol inhaler 2 puff inhalation BID Qty: 10.2 0RF benzonatate 200 mg capsule 200 mg PO TID PRN (Reason: cough) Qty: 20 0RF furosemide [Lasix] 20 mg tablet 20 mg PO DAILY Qty: 5 0RF albuterol sulfate [Ventolin HFA] 90 mcg/actuation HFA aerosol inhaler 1 - 2 puff inhalation Q4H PRN PRN (Reason: Wheezing) Qty: 1 0RF Rx Instructions: please give spacer prednisone 20 mg tablet 40 mg PO DAILY Qty: 10 0RF [facility]errals: Katty Aguila MD [Med Staff - Hospitality Services Manager] - As Needed [facility] [Primary Care Provider] - 1 Week if not improving Disposition Disposition: Home, Self Care What to do if you have Problems For any increased pain, shortness of breath, bleeding, nausea or vomiting, chestpain, or any unexpected problems, contact your Primary Care Provider. Call [facility] ([phone]) or report to the closest Emergency Room. Call 911 if necessary. 07/03/23 5816 <Electronically signed by Amari Ashley MD> Cosigner Signature (if applicable): CC: [facility] ~ Signed [facility] [place] Work Phone: 1(821) 694-962003-21-2024 History of Present illness Narrative* Anisha Dasilva RT(R) - 05/20/2023 12:30 PM EDT Radiology Service Progress Note PATIENT NAME: Lakeisha Topete DATE OF SERVICE: May 20, 2023 TIME: 12:52 PM PATIENT IDENTITY VERIFICATION COMPLETED USING TWO (2) IDENTIFIERS: Name and Date of confirmedby patient verbally. FALL SCREENING: Has the patient had 2 falls in the last year or 1 fall with injury or currently using an Ambulatory Assistive Device (Walker, Cane, Wheelchair, Crutches, etc.)? No PATIENT GENDER DATA: Female. status: : No status: NO. PATIENT RELEVANT IMPLANT DATA REVIEWED: Not Applicable PATIENT PRESENTS WITH AN IMPLANTABLE OR ATTACHED SCAFFOLD ERECTOR: No RADIOLOGY DEPARTMENT: General X-ray: Exam(s) Completed: Lower Extremity X- Ray(s): Ankle, Right and Wt. Bearing PERIPHERAL IV DATA: Not applicable SIGNED BY: RT Rajat(R) May 20, 2023 12:52 PM documented in this encounterWestern [facility] Hospital03-21-2024 History of Present illness Narrative* Cyndy Lorenzo RN - 05/20/2023 12:[address] Alfonso Lakeisha was provided with Original powersteps, size 9-9.5 Womens, and instructed/educated in its application, wear, and care. All questions were answered, and patient was able to demonstrate competence with the necessary skills to utilize the above equipment. Cyndy Lorenzo RN * Brunilda Alfonso - 05/20/2023 12:02 PM EDT Images from the original note were not included. FOLLOW UP PODIATRIC OFFICE VISIT Chief Complaint: This 52 year old who presents for follow up:right foot pain Patient presents to clinic for followup right foot pain Continues was seen in April and was found to have pain along the posterior tibial tendon. That pain has subsided She is now having pain to the lateral aspect of right ankle. She is using inserts but still has pain. She has also tried ice but this does not help PAIN EVALUATION 05/20/2023 1134 Pain Level: 5 Pain Location: Foot-Right Description: Sharp Duration Amount of Time: -- several weeks Duration Units: Weeks Frequency: Continuous Intervention/Comfort measure: Reposition;Relaxation;Medication;Other: See comment Power Step inserts Hemoglobin A1C Date Value Ref Range Status 09/22/2018 6.1 (H) 4.3 - 5.6 % Final Comment: Citizen Of [place] Diabetes Association guidelines indicate that patients with HgbA1c in the range 5.7-6.4% are at increased risk for development of diabetes, and intervention by lifestyle modification may be beneficial. HgbA1c greater or equal to 6.5% is considered diagnostic of diabetes. PCP: [facility] PAST MEDICAL HISTORY Diagnosis Date Allergic rhinitis, cause unspecified Depression 09/26/2010 Morbid obesity (HCC) 07/24/2011 Other combinations of endocrine dysfunction Sprain of neck Unspecified asthma(493.90) Current Outpatient Medications Medication Sig meclizine (ANTIVERT) 25 mg tab Take 1 tablet by mouth two times a day as needed (dizziness). cyclobenzaprine (FLEXERIL) 5 mg tablet Take 1 tablet by mouth two times a day as needed for muscle spasm. (Patient not taking: Reported on 04/22/2023) metFORMIN (GLUCOPHAGE) 500 mg tablet Take 500 mg by mouth twice daily. losartan (COZAAR) 25 mg tablet Take 25 mg by mouth once daily. For 30 days prazosin (MINIPRESS) 1 mg cap TAKE 2 CAPSULES BY MOUTH ONCE DAILY AT BEDTIME (Patient not taking: Reported on 04/22/2023) glipiZIDE (GLUCOTROL XL) 5 mg 24 hr tablet Take by mouth. ARIPiprazole (ABILIFY) 5 mg tablet Take 5 mg by mouth once daily. For 30 days acetaminophen (TYLENOL EXTRA STRENGTH) 500 mg tablet Take 1 tablet by mouth every 6 hours as neededfor pain. Ipratropium (ATROVENT) 17 mcg/actuation inhaler Inhale 2 Puffs as instructed every 6 hours. triamcinolone acetonide (KENALOG) 0.1 % cream Apply 1 application to affected area twice daily. Apply to affected area. Location: neck (Patient not taking: Reported on 04/22/2023) fluticasone (FLONASE) 50 mcg/actuation nasal spray Use 1 [place] in each nostril once daily. mometasone-formoterol (DULERA) 100-5 mcg/actuation inhaler Inhale 2 Puffs as instructed twice daily. (Patient not taking: Reported on 04/22/2023) albuterol HFA (PROAIR HFA) 90 mcg/actuation inhaler Inhale 2 Puffs as instructed every 4 hours as needed for Wheezing/Shortness of Breath. meloxicam (MOBIC) 15 mg tablet Take 1 tablet by mouth once daily. Take with food. (Patient not taking: Reported on 04/22/2023) FLUoxetine (PROZAC) 20 mg capsule Take 1 capsule by mouth once daily. loratadine 10 mg cap Take 1 capsule by mouth once daily. (Patient not taking: Reported on 04/22/2023) Melatonin 5 mg cap Take 1 capsule by mouth daily at bedtime. (Patient not taking: Reported on 04/22/2023) Norethindrone, Contraceptive, (ORTHO MICRONOR) 0.35 mg tablet Take 1 tablet by mouth once daily. (Patient not taking: Reported on 04/22/2023) simvastatin (ZOCOR) 20 mg tablet Take 1 tablet by mouth daily at bedtime. acetaminophen (TYLENOL) 325 mg tablet Take 325 mg by mouth every 6 hours as needed. Take two tablets every 6 hours as needed for pain. omeprazole (PRILOSEC) 20 mg capsule Take 1 capsule by mouth daily before breakfast. 1/2 hr before meal. No current facility-administered medications for this visit. ALLERGIES Allergen Reactions Penicillins PAST SURGICAL HISTORY Procedure Laterality Date LAPAROSCOPIC APPENDECTOMY 09/20/2009 LAPS SURG CHOLECYSTECTOMY W/CHOLANGIOGRAPHY IOC - non draining LIG/TRNSXJ FLP TUBE ABDL/VAG APPR UNI/BI Tubal ligation TONSILLECTOMY PRIMARY/SECONDARY <AGE 12 Tonsillectomy Physical Exam: OBJECTIVE: Constitutional: Pt is a well developed 52 year old female who is alert, oriented, cooperative and in no apparent distress. Eyes: Following during examination. No redness or drainage. Respiratory: RR normal and nonlabored. Even breathing. No evidence of distress. Psychology: Patient is engaged during conversation. Normal affect and mood. Does not appear depressed or anxious. NVSI unchanged from previous visit. Dermatological: Nails 1-5 b/l are normal. Webspaces clean and dry 1-4 b/l. Skin appears well hydrated and supple. good color, texture, turgor. No open lesions present. No callosities present. Musculoskeletal/Orthopaedic: Patient has pain to palpation of right lateral ankle along distal fibula No pain to posterior tibial tendon Past xray reviewed. No obvious fracture but questionable thickening of distal fibula ASSESSMENT: (X50.3XXA) Repetitive stress injury (primary encounter diagnosis) Posterior tibial tendon dysfunction PLAN: Discussed pain in right medial ankle. This has resolved. Would continue with inserts Now having pain in lateral ankle. Reviwed last xray and on ap view, questionable thickening of fibula shaft. Will repeat xray to assure no stress fracture Offered boot. She is unable to wear boot at work. Will get xrays. Will call with results Brunilda Alfonso DPM * Frances Berrios RN - 05/20/2023 11:33 AM EDT AMB ROOMING INTAKE FLOWSHEET DATA Pain Pain Level: 5 Pain Location: Foot-Right Description: Sharp Duration Amount of Time: (several weeks) Duration Units: Weeks Frequency: Continuous Intervention/Comfort measure: Reposition, Relaxation, Medication, Other: See comment (Power Step inserts) Patient presents with: Right Foot - Follow Up, Pain, Swelling Patient here for follow up of R foot. Continues with pain and swelling. Wearing Power Steps every day. documented in this encounterWestern [facility] Hospital03-21-2024 Instructions* Patient Instructions* Brunilda Alfonso - 05/20/2023 12:10 PM EDT Get xrays. Will notify you of any fracture Powerstep Original Full length. Can purchase at [employer] and boots,shoes and more here in [place], [employer] in [place] or [place]. Also can find in [employer] in [facility]. Powersteps can also be purchased online, starting around $45.00 If you have a metatarsal or dancer pad for your feet apply the pad directly to the insole so you can interchange between your shoes. Find a shoe with a removable insole and take this out and replace with your powerstep insole. Always bring powersteps with you when shopping for shoes so that you can make sure that everything fits well together documented in this encounterWestern [facility] Hospital02-22-2024 History of Present illness Narrative* Anisha Dasilva RT(R) - 04/22/2023 11:30 AM EST Radiology Service Progress Note PATIENT NAME: Lakeisha Topete DATE OF SERVICE: April 22, 2023 TIME: 11:58 AM PATIENT IDENTITY VERIFICATION COMPLETED USING TWO (2) IDENTIFIERS: Name and Date of confirmedby patient verbally. FALL SCREENING: Has the patient had 2 falls in the last year or 1 fall with injury or currently using an Ambulatory Assistive Device (Walker, Cane, Wheelchair, Crutches, etc.)? No PATIENT GENDER DATA: Female. status: : No status: NO. PATIENT RELEVANT IMPLANT DATA REVIEWED: Not Applicable PATIENT PRESENTS WITH AN IMPLANTABLE OR ATTACHED SCAFFOLD ERECTOR: No RADIOLOGY DEPARTMENT: General X-ray: Exam(s) Completed: Lower Extremity X- Ray(s): Ankle, Bilateral and Wt. Bearing and Feet, Bilateral and Wt. Bearing PERIPHERAL IV DATA: Not applicable SIGNED BY: RT Rajat(R) April 22, 2023 11:58 AM documented in this encounterWestern Reserve Hospital02-22-2024 Instructions* Patient Instructions* Brunilda Alfonso - 04/22/2023 11:09 AM EST Powerstep Original Full length. Can purchase at [employer] and boots,shoes and more here in [place], [employer] in [place] or [place]. Also can find in [employer] in [facility]. Powersteps can also be purchased online, starting around $45.00 If you have a metatarsal or dancer pad for your feet apply the pad directly to the insole so you can interchange between your shoes. Find a shoe with a removable insole and take this out and replace with your powerstep insole. Always bring powersteps with you when shopping for shoes so that you can make sure that everything fits well together documented in this encounterWestern Reserve Hospital02-22-2024 History of Present illness Narrative* Brunilda Alfonso - 04/22/2023 11:01 AM EST Initial Podiatric Office Visit: Chief Complaint: This 52 year old female who presents with chief complaint:b/l foot and ankle pain R>L HPI Patient presents to clinic for evaluation of b/l lower extremity She has pain to both foot and ankle, right being more painful than the left She states the pain is really severe at night. Patient denies any injury Went to [facility] one month ago. Was felt that the pain may have been a blood clot but ultrasound was negative Patient takes ibuprofen for the pain but nothing really helps. PAIN EVALUATION 04/22/2023 1047 Pain Level: 8 Pain Location: Foot-Right Description: Stabbing Duration Amount of Time: 1 Duration Units: Months Frequency: Intermittent Intervention/Comfort measure: Reposition;Relaxation;Medication Hemoglobin A1C (%) Date Value 09/22/2018 6.1 06/28/2018 6.1 PCP: Malgorzata Ahmadi PAST MEDICAL HISTORY Diagnosis Date Allergic rhinitis, cause unspecified Depression 09/26/2010 Morbid obesity (HCC) 07/24/2011 Other combinations of endocrine dysfunction Sprain of neck Unspecified asthma(493.90) Current Outpatient Medications Medication Sig meclizine (ANTIVERT) 25 mg tab Take 1 tablet by mouth two times a day as needed (dizziness). metFORMIN (GLUCOPHAGE) 500 mg tablet Take 500 mg by mouth twice daily. losartan (COZAAR) 25 mg tablet Take 25 mg by mouth once daily. For 30 days glipiZIDE (GLUCOTROL XL) 5 mg 24 hr tablet Take by mouth. ARIPiprazole (ABILIFY) 5 mg tablet Take 5 mg by mouth once daily. For 30 days acetaminophen (TYLENOL EXTRA STRENGTH) 500 mg tablet Take 1 tablet by mouth every 6 hours as neededfor pain. Ipratropium (ATROVENT) 17 mcg/actuation inhaler Inhale 2 Puffs as instructed every 6 hours. fluticasone (FLONASE) 50 mcg/actuation nasal spray Use 1 [place] in each nostril once daily. albuterol HFA (PROAIR HFA) 90 mcg/actuation inhaler Inhale 2 Puffs as instructed every 4 hours as needed for Wheezing/Shortness of Breath. FLUoxetine (PROZAC) 20 mg capsule Take 1 capsule by mouth once daily. simvastatin (ZOCOR) 20 mg tablet Take 1 tablet by mouth daily at bedtime. acetaminophen (TYLENOL) 325 mg tablet Take 325 mg by mouth every 6 hours as needed. Take two tablets every 6 hours as needed for pain. omeprazole (PRILOSEC) 20 mg capsule Take 1 capsule by mouth daily before breakfast. 1/2 hr before meal. cyclobenzaprine (FLEXERIL) 5 mg tablet Take 1 tablet by mouth two times a day as needed for muscle spasm. (Patient not taking: Reported on 04/22/2023) prazosin (MINIPRESS) 1 mg cap TAKE 2 CAPSULES BY MOUTH ONCE DAILY AT BEDTIME (Patient not taking: Reported on 04/22/2023) triamcinolone acetonide (KENALOG) 0.1 % cream Apply 1 application to affected area twice daily. Apply to affected area. Location: neck (Patient not taking: Reported on 04/22/2023) mometasone-formoterol (DULERA) 100-5 mcg/actuation inhaler Inhale 2 Puffs as instructed twice daily. (Patient not taking: Reported on 04/22/2023) meloxicam (MOBIC) 15 mg tablet Take 1 tablet by mouth once daily. Take with food. (Patient not taking: Reported on 04/22/2023) loratadine 10 mg cap Take 1 capsule by mouth once daily. (Patient not taking: Reported on 04/22/2023) Melatonin 5 mg cap Take 1 capsule by mouth daily at bedtime. (Patient not taking: Reported on 04/22/2023) Norethindrone, Contraceptive, (ORTHO MICRONOR) 0.35 mg tablet Take 1 tablet by mouth once daily. (Patient not taking: Reported on 04/22/2023) No current facility-administered medications for this visit. ALLERGIES Allergen Reactions Penicillins PAST SURGICAL HISTORY Procedure Laterality Date LAPAROSCOPIC APPENDECTOMY 09/20/2009 LAPS SURG CHOLECYSTECTOMY W/CHOLANGIOGRAPHY IOC - non draining LIG/TRNSXJ FLP TUBE ABDL/VAG APPR UNI/BI Tubal ligation TONSILLECTOMY PRIMARY/SECONDARY <AGE 12 Tonsillectomy FAMILY HISTORY Problem Relation Age of Onset COPD Father Coronary Artery Disease Father of [place] Cancer Mother breast cancer Diabetes Mother Heart [...] Topics Alcohol use: No Drug use: No REVIEW OF SYSTEMS GENERAL: Negative for Malaise, significant weight loss, fever RESPIRATORY: Negative for cough, wheezing and shortness of breath CARDIOVASCULAR: Negative for chest pain, leg swelling and palpitations GI: Negative for abdominal discomfort, blood in stools or black stools and change in bowel habits : Negative for dysuria, frequency and incontinence MUSCULOSKELETAL: Negative for joint pain or swelling, back pain, and muscle pain. SKIN: Negative for lesions, rash, and itching. HEMATOLOGY/LYMPHOLOGY Negative for prolonged bleeding, bruising easily, and swollen nodes. ENDOCRINE: Negative for cold or heat intolerance, polyuria, polydipsia and goiter. NEURO: negative Physical Exam: Constitutional: Pt is a well developed 52 year old female who is alert, oriented and cooperative Eyes: Following during examination. No redness or drainage. Respiratory: RR normal and nonlabored. Even breathing. No evidence of distress or shortness of breath. Psychology: Patient is engaged during conversation. Normal affect and mood. Does not appear depressed or anxious during encounter. Vascular: Dorsalis pedis and posterior tibial pulses palpable as b/l Capillary Fill time < 5 seconds to digits 1-5 b/l Skin temperature warm to warm proximal to distal b/l Hair growth present to digits Neurological: intact light touch/epicritic sensation b/l intact protective sensation no significant neurological deficits Dermatological: Nails 1-5 b/l appear normal. Webspaces clean and dry 1-4 b/l. Skin appears well hydrated and supple. good color, texture, turgor. No open lesions present. No callosities present. Musculoskeletal/Orthopaedic: Patient has pain to palpation of right medial ankle along posterior tibial tendon Foot type is pronated structurally AJ ROM is full with knee extended and flexed 1st MPJ is full when loaded and no pain or crepitus are noted with ROM. MTJ, STJ are full and free of pain and crepitus. +5/5 muscle strength dorsiflexion, plantarflexion, inversion, eversion b/l Radiographs: ordered ASSESSMENT: (M76.829) Posterior tibial tendon dysfunction (primary encounter diagnosis) (M21.41, M21.42) Pes planus of both feet (E11.9) Controlled type 2 diabetes mellitus without complication, unspecified whether nursing home insulin use ([facility]) PLAN: 1. History and physical examination performed. 2. Discussed right ankle pain. Suspect component of posterior tibial tendon dysfunction. Discussed use of orthotics. We discussed custom vs over the counter. She will try powerstep inserts. If these help, could consider custom orthotics. 3. Offered boot if pain is severe. She declined. If pain fails to improve, consider boot. Brunilda Alfonso DPM Podiatry [address] [place] [id number] Dept: [phone] Dept * Paige Dos Santos LPN - 04/22/2023 10:46 AM EST AMB ROOMING INTAKE FLOWSHEET DATA Pain Pain Level: 8 Pain Location: Foot-Right Description: Stabbing Duration Amount of Time: 1 Duration Units: Months Frequency: Intermittent Intervention/Comfort measure: Reposition, Relaxation, Medication Patient presents with: Right Foot - Pain, Swelling, New Left Foot - Swelling, New, Pain Paige Dos Santos LPN documented in this encounterWestern Reserve Hospital02-07-2024 History of Present illness Narrative* Jose Eduardo Dow MD - 04/07/2023 1:29 PM EST [facility] Care Triage Note: Patient presents to the [facility] with complaint of feeling dizzy/light- headed. Her blood sugar was over 300 last night and upper 200s today. She does not feel like she is spinning. Denies chest pain or shortness of breath. She will go to the ER for further evaluation. documented in this encounterWestern Reserve Hospital12-08-2023 History of Present illness Narrative* Suze Arguelles APRN.CNP - 02/05/2023 12:34 PM EST This note was created using NoteWriter. Subjective Lakeisha Topete is a 52 year old female. Presents [...] since cannot obtain here today Suze Arguelles APRN.[employer] documented in this encounterWestern Reserve Hospital10-23-2023 Hospital Discharge instructions Additional Instructions I would recommend Motrin 600 mg at least every 8 hours for 5 to 7 days. Please take it with food. Please monitor for any redness or worsening swelling/pain. Please mention this when you go to your doctors appointment on Wednesday.[facility] Work Phone: 1(403) 561-535810-14-2023 Instructions* Patient Instructions* Katherine Hubbard APRN.CNP - 12/12/2022 1:34 PM EDT ASSESSMENT/PLAN: 1. [...] Discussed expected course of illness Katherine Hubbard APRN.[employer] documented in this encounterWestern Reserve Hospital10-14-2023 History of Present illness Narrative* Katherine Hubbard APRN.[employer] - 12/12/2022 1:18 PM EDT Subjective Dizziness Associated symptoms include dizziness. Pertinent negatives include no fever. Lakeisha Topete is a 52 year old female who [...] has not had a fever. Blood sugar checktoday was 150, which was a little higher [...] tablet by mouth every 6 hours as neededfor pain. acetaminophen (TYLENOL) 325 mg tablet Take [...] (FLONASE) 50 mcg/actuation nasal spray Use 1 [place] in each nostril once daily. glipiZIDE (GLUCOTROL [...] COPD Father Coronary Artery Disease Father of [place] Cancer Mother breast cancer Diabetes Mother Heart [...] Discussed expected course of illness Katherine Hubbard APRN.[employer] documented in this encounterWestern Reserve Hospital09-02-2023 Miscellaneous Notes* Telephone Encounter - Magaly Flowers MA - 10/31/2022 9:03 AM EDT Patient returned call, notified of results as listed below, verbalized understanding. Magaly Flowers MA * Telephone Encounter - Magaly Flowers MA - 10/31/2022 8:59 AM EDT Left VM instructing patient to return call to receive results. Magaly Flowers MA * Telephone Encounter - Magaly Flowers MA - 10/31/2022 8:56 AM EDT ----- Message from Katherine Hubbard APRN.[employer] sent at 10/31/2022 8:15 AM EDT ----- Urine culture did not show clear evidence of infection, however it appears sample may have been contaminated with skin bacteria during collection. She may continue to take antibiotic if it has been helpful. Recommend follow up with PCP to ensure hematuria has resolved. Katherine Hubbard CNP documented in this encounterWestern Reserve Hospital09-01-2023 Miscellaneous Notes* Telephone Encounter - Cyndy Gilmore RN - 10/30/2022 2:54 PM EDT Pt called in asking for results from yesterdays tests: Good news! You tested negative for COVID, Influenza, and RSV. If you were tested because you were having symptoms, please monitor these symptoms and for any worrisome symptoms, please call your primary care provider or schedule a visit with [facility]. Macrobid prescribed. Antibiotic was prescribed for blood, protein, and leukocytes in the UA. Stillwaiting on urine culture results. documented in this encounterWestern [facility] Hospital08-31-2023 Instructions* Patient Instructions* Katherine Hubbard APRN.GUERRERO - 10/29/2022 4:16 PM EDT ASSESSMENT/PLAN: 1. Urinary tract infection with hematuria, site unspecified - ICD9: 599.0, 599.70, ICD10: N39.0, R31.9 (primary diagnosis) acute - UA positive for celine esterase, hematuria, and proteinuria - Send urine [...] FLU A/B + RSV E Woody [employer] WORK[employer] Student TEACHING PROVIDER (Physician/PA/COVER REMOVER) NOTE OF PERSONAL INVOLVEMENT IN CARE: I have personally seen and examined the patient and performed the medical decision-making components. I have reviewed the Advanced Practice Registered Nurse (COVER REMOVER) Student's documentation and verified the findings in the note as written. Any additions or changes are noted in bold/italics. Signature: Katherine Hubbard Date: 10/29/2022 Time: 4:15 PM documented in this encounterWestern Reserve Hospital08-31-2023 History of Present illness Narrative* Katherine Hubbard APRN.GUERRERO - 10/29/2022 3:45 PM EDT This note was created using [employer]ma[employer]. Subjective Lakeisha Topete is a 52 year old female. Patient presents with two days of headache, left flank pain, nausea, and fatigue. Patient also endorses mild cough, chills, bilateral ear pain, and sore throat. She denies any chest pain or shortnessof breath. She is requesting a COVID and [...] tablet by mouth every 6 hours as neededfor pain. Ipratropium (ATROVENT) 17 mcg/actuation inhaler Inhale 2 Puffs as instructed every 6 hours. triamcinolone acetonide (KENALOG) 0.1 % cream Apply 1 application to affected area twice daily. Apply to affected area. Location: neck fluticasone (FLONASE) 50 mcg/actuation nasal spray Use 1 [place] in each nostril once daily. mometasone-formoterol (DULERA) [...] mg capsule Take 1 capsule by mouth twicedaily for 5 days. FAMILY HISTORY Problem Relation Age of Onset COPD Father Coronary Artery Disease Father of [place] Cancer Mother breast cancer Diabetes Mother Heart [...] ear normal. No swelling or tenderness. There isno impacted cerumen. Tympanic membrane is not perforated, [...] left upper quadrant. There is left CVA tenderness.There is no right CVA tenderness. Neurological: General: [...] (primary diagnosis) acute - UA positive for celine esterase, hematuria, and proteinuria - Send urine [...] FLU A/B + RSV E Wood[employer] WORK[employer] Student TEACHING PROVIDER (Physician/PA/COVER REMOVER) NOTE OF PERSONAL INVOLVEMENT IN CARE: I have personally seen and examined the patient and performed the medical decision-making components. I have reviewed the Advanced Practice Registered Nurse (COVER REMOVER) Student's documentation and verified the findings in the note as written. Any additions or changes are noted in bold/italics. Signature: Katherine Hubbard Date: 10/29/2022 Time: 4:15 PM documented in this encounterWestern Reserve Hospital08-12-2023 Instructions* Patient Instructions* Luz Elena Jovel APRN.SUPERVISOR FRUIT GRADING - 10/10/2022 1:33 PM EDT Naproxen as ordered - do not use meloxicam with this, may use tylenol Flexeril as ordered Stretches as given Follow up with PCP documented in this encounterWestern Reserve Hospital08-12-2023 History of Present illness Narrative* Luz Elena Jovel APRN.SUPERVISOR FRUIT GRADING - 10/10/2022 1:27 PM EDT Images from the original note were not included. Subjective The history is provided by the patient. No language translator was used. LALI Topete is a 52 year old female who presents today for CC of lower back pain with radiation down right leg. This started in the past several days. She denies any known injury or trauma, shehas not used any treatment or medication. She [...] edited as necessary, the [facility] Review of Systems Constitutional: Negative for chills [...] for higher level of care were discussed indetail warranting prompt ER evaluation. Luz Elena Jovel APRN.GUERRERO documented in this encounterWestern Reserve Hospital07-12-2023 Discharge summary Author Luis Phillips [facility] September 09, 2022 4:39pm Note Date/Time September 09, 2022 3:05 pm [facility] Medical Records Department [address] [place] [address] Emergency Department Summary 09/09/22 MR#: [id number] Acct: [id number] Name: LAKEISHA TOPETE Rep #:[id number] : 1970 52 From: Luis Manriquez PCP: [facility] atus:[facility] Location: ED HPI History of Present Illness Chief Complaint: Dizziness [facility] Medical History Asthma Diabetes Hypertension Home Medications simvastatin 20 mg tablet 20 mg PO QHS cholesterol 06/28/18 [History Last Taken 07/17/18] albuterol sulfate 90 mcg/actuation aerosol inhaler (Proventil HFA) 2 puff inhalation Q4H PRN PRN Sob &/Or Wheezing 07/18/18 [History Last Taken 07/18/18] fluoxetine 20 mg capsule 20 mg PO DAILY depression 07/18/18 [History Last Taken 07/17/18] metformin 500 mg tablet 500 mg PO BID #20 tabs 05/25/22 [Rx Last Taken Unknown] ondansetron 4 mg disintegrating tablet 4 mg PO Q8H PRN PRN Nausea #7 tabs 08/24/22 [Rx Last Taken Unknown] Allergy/AdvReac Type Severity Reaction Status Date / Time Penicillins AdvReac Vomiting Verified 09/09/22 12:44 Surgical History Hx of breast surgery Hx of tubal ligation Social History Smoking Status: Never smoker EXAM Physical Exam Const Vital Signs: 09/09/22 12:43 09/09/22 15:48 Temperature 97.5 F L Temperature Source Temporal Pulse Rate 84 Respiratory Rate 18 Respiratory Effort Normal Non-Labored Respiratory Pattern Normal Blood Pressure 143/92 H Blood Pressure Mean 109 Pulse Ox 99 Oxygen Delivery Method Room Air MDM MDM MDM Narrative Medical decision making narrative: HISTORY OF PRESENT ILLNESS: 52-year-old female here with acute onset of dizziness. 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 States she has been having intermittent heavy to light vaginal bleeding. Denies any other bleeding diathesis. No she is not eating and drinking normally. Denies any chest pain or shortness of breath associated. Denies any palpitations. Denies any unilateral leg swelling. She does endorse a frontal headache that began around this time as well. Denies any neck stiffness or fever. Denies anyfocal numbness or weakness. REVIEW OF SYSTEMS: Pertinent positives: Dizziness, vaginal bleeding Pertinent negatives: focal weakness PHYSICAL EXAM: Nursing triage notes reviewed, Vital signs reviewed Constitutional: please see mdm HENT: MMM Eyes: Pupils equal round and reactive to light, Extraocular muscles intact Neck: No stridor, no JVD, full neck ROM Lungs: Clear to auscultation, No wheezing or rales. No increased work of breathing, no conversational dyspnea, no accessory muscle use, no nasal flaring. No respiratory distress noted Heart: Regular rate and rhythm, No murmurs, No rubs and No gallops, 2+ distal pulses (radial, femoral, posterior tibial) in all extremities Abdomen: Soft, there is no tenderness, rigidity, rebound or guarding, no obviousperitoneal signs, no palpable pulsatile abdominal masses, no auscultated abdominal bruit : No CVAT Extremities: No edema Neuro: Alert and oriented x3, neuro exam at baseline, cranial nerves II through XII are intact. No pain with extraocular muscle movement. There is negative test of skew. Normal speech. 5 of 5 strength in upper and lower extremities inflexion extension. Intact sensation to light touch in upper and lower extremitydermatomes. No truncal or extremity ataxia. No dysdiadochokinesia. Normal gait. 2+ reflexes. No meningeal signs. Negative Babinski. NIH of 0 Skin: No rash or lesions noted MEDICAL DECISION MAKING: Chief Complaint: Lightheadedness External records reviewed: Head CT from June 2022 for dizziness and headache showed no acute abnormality no bleed no mass Factors affecting care: Type 2 diabetes hyperlipidemia, ALL IMAGES (IF OBTAINED) HAVE BEEN PERSONALLY REVIEWED AND INTERPRETED BY MYSELF. EKG with normal sinus rhythm, normal axis, normal intervals, no obvious STEMI, no WPW, ARVD or Brugada noted MDM Narrative: Patient was initially hemodynamically stable, afebrile, nontoxic-appearing. No focal neurologic deficits on my initial exam no focal cardiopulmonary normalities. I considered the following differential diagnosis: Arrhythmia, ACS, anemia, electrolyte abnormality, dehydration, pneumonia, I considered acute intracranial normalities and cause headache and dizziness including ICH, mass, subarachnoid hemorrhage, subdural hematoma. Patient deniesany head trauma. She had no focal neurologic deficits to suggest CVA, TIA or other intracranial abnormality no indication for advanced imaging at this time. In terms of patient's lightheadedness I obtained a broad lab and imaging work- upto further elucidate the etiology patient complaints. No evidence of myocardialischemia, arrhythmia. No significant NIKA to suggest dehydration. Labs were consistent with likely anemia from abnormal uterine bleeding. Her hemoglobin isdropped by 2 g/dL from prior study in July 2022. this is the likely etiology ofthe patient's presentation. There is indication for emergent transfusion at this time. She was given strict return precautions and instructed to follow with her STAIN WIPER. I completed a structured, evidence-based clinical evaluation to screen for acutestroke and neurologic deficits in this patient. The patient has a normal detailed neurologic exam, which is highly sensitive for dangerous causes of dizziness, vertigo, or loss of balance. The evidence indicates that the patient is very low risk for an acute neurologicemergency and this is consistent with my clinical intuition. The risk of furtherworkup or hospitalization is likely higher than the risk of the patient having astroke or other dangerous neurologic condition. It is, therefore, in the patient?s best interest not to do additional emergent testing or to be hospitalized at this time. Shared Decision-Making I have discussed with the patient my clinical impression and the result of an evidence-based clinical evaluation to screen for stroke, as well as the risk of further testing and hospitalization. The evidence shows that the risk for stroke is less than 1%. Although the risk of stroke has not been completely eliminated, the risks of further testing or hospitalization likely exceed any potential benefit, and the patient agrees withnot pursuing further emergent evaluation or hospitalization for stroke evaluation at this time. The patient and/or family, caregivers express understanding. The patient and/orfamily, caregivers agrees with the plan. Total critical care time today provided was at least 0 minutes. This excludes separately billable procedures. Critical care time (if documented) is secondary to the patient having high probability of clinically significant/life threatening deterioration in the patient's condition which required my urgent intervention. Lab Data Attestation: I reviewed the patient's lab results. Lab results narrative: CBC without leukocytosis to suggest examination, anemia, no normal cytopenia BMP with mild hypokalemia, no other significant electrode abnormalities, no acute kidney injury, no anion gap elevation to suggest endorgan perfusion UA with evidence of inflammation, hematuria Troponin is negative, no evidence of myocardial ischemia Labs: Laboratory Results - last 24 hr 09/09/22 09/09/22 09/09/22 13:55 14:00 14:07 WBC 10.2 RBC 3.83 L Hgb 8.3 L Hct 29.0 L MCV 75.7 L MCH 21.7 L MCHC 28.6 L RDW Std Deviation 47.8 H RDW Coeff of Yohannes 17.6 H Plt Count 345 MPV 9.7 Immature Gran % (Auto) 0.700 Neut % (Auto) 65.7 Lymph % (Auto) 24.6 [place] % (Auto) 6.4 Eos % (Auto) 2.1 Baso % (Auto) 0.5 Absolute Neuts (auto) 6.7 Absolute Lymphs (auto) 2.51 Nucleated RBC % 0 Sodium 138 Potassium 3.4 L Chloride 106 Carbon Dioxide 28.0 Anion Gap 4 L BUN 12 Creatinine 0.90 Estim Creat Clear Calc 100.14 Est GFR (MDRD) Af Amer 85 Est GFR (MDRD) Non-Af 70 BUN/Creatinine Ratio 13.3 Glucose 151 H Calcium 8.5 Troponin I High Sens 4 Urine Color Yellow Urine Clarity Sl. Cloudy Urine pH 5.0 Ur Specific [place] 1.025 Urine Protein 30 H Urine Glucose (UA) Normal Urine Ketones Negative Urine Occult Blood 250 H Urine Nitrite Negative Urine Bilirubin Negative Urine Urobilinogen Normal Ur Leukocyte Esterase 500 H Urine RBC 25-50 SEEN Urine WBC 25-50 SEEN Ur Squamous Epith Cells 0-5 SEEN Urine Bacteria 3+ Urine Mucus 0 SEEN Urine Test Negative POC Glucose 170 H Radiography Chest X-Ray - ED: Read by ED Physician Diagnostic Testing: Clinical Impression(s) from Imaging Studies Chest X-Ray 09/09/22 15:38 IMPRESSION: No acute amount is seen. Stable examination. Electronically Signed: Thaddeus Jones MD at 15:51 EDT , I have personally reviewed the patient's chest x-ray. Chest x-ray is unremarkable for pulmonary edema, pneumothorax, pneumonia or focal cardiopulmonary abnormality. Discharge Plan Triage Chief Complaint: Dizziness ED Provider: Luis Phillips Dx/Rx/DC Orders Clinical Impression: DUB (dysfunctional uterine bleeding), Anemia Instructions: Understanding Uterine Bleeding Prescriptions: No Action simvastatin 20 tablet 20 mg PO QHS albuterol sulfate [Proventil HFA] 6.7 GM HFA aerosol inhaler 2 puff inhalation Q4H PRN PRN (Reason: Sob &/Or Wheezing) fluoxetine 20 MG capsule 20 mg PO DAILY Patient Comments: TAKE 1 CAPSULE BY MOUTH DAILY metformin 500 mg tablet 500 mg PO BID Qty: 20 0RF ondansetron 4 mg tablet,disintegrating 4 mg PO Q8H PRN PRN (Reason: Nausea) Qty: 7 0RF [facility]errals: Don Grimes MD [Med Staff - Active Staff] - Activity Restrictions/Additional Instructions: Thank you for trusting us with your care today! Please take Tylenol (2 pills, 650 mg), ibuprofen (2 pills, 400 mg) every 6 hoursas needed for pain and fever control. Please return to the emergency department if your symptoms change or worsen. Specifically be of heavier bleeding. He lose consciousness. If develop pallor. Eval palpitations, chest pain or focal weakness. Please follow with your primary care physician for further outpatient evaluationand management. Disposition Disposition: Home, Self Care What to do if you have Problems For any increased pain, shortness of breath, bleeding, nausea or vomiting, chestpain, or any unexpected problems, contact your Primary Care Provider. Call [facility] ([phone]) or report to the closest Emergency Room. Call 911 if necessary. 09/09/22 1639 <Electronically signed by Luis Phillips DO> Cosigner Signature (if applicable): CC: [facility] ~ Signed [facility] Work Phone: [phone]) 149-374203-27-2023 History of Present illness Narrative* Jose Eduardo Dow MD - 05/25/2022 3:35 PM EDT Patient presents with: Chest Pain HPI: Patient moved back from [place] [facility] recently. She is homeless and without her medications includingdiabetes and blood pressure meds. She has had [...] (FLONASE) 50 mcg/actuation nasal spray Use 1 [place] in each nostril once daily. mometasone-formoterol (DULERA) [...] ICD10: R07.9 Patient transported to [facility] by EMS for further evaluation and treatment. Jose Eduardo Dow MD documented in this encounterWestern [facility] Hospital01-27-2023 Evaluation note* Encounter Date Assessment Date Assessment 03/27/2022 03/27/2022 Consideration of treatment with medical marijuana is complementary to standard medical treatment. Patient s diagnosis is not a terminal illness which has a life expectancy of 6 months or less. OAARS report of the last 12 months has been reviewed. Patient does not have indicators of possible abuse or diversion of controlled substance. Risks and benefits of medical marijuana treatment were discussed with the patient as pertains to patient s qualifying condition and history. Yes Patient signed a consent prior to completing a recommended treatment for medical marijuana.Yes Patient does not need a caregiver to assist in the use or administration of medical marijuana. 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 E-Mail: [email or web address] [facility] 12-02-2022 Evaluation note* Encounter Date Assessment Date Assessment 01/30/2022 01/30/2022 13 total minutes of visit time was spent by the provider including same-day pre-visit prep, time spent with patient during the visit, and immediate post-visit time. [facility] 08-25-2022 Evaluation note* Encounter Date Assessment [...] above services for Dr. Sridhar Velasquez MD. [facility] 06-30-2022 Evaluation note* Encounter Date Assessment [...] exam. Follow up on 09/16/21 for surgery. I, Kristi Carballo scribed the following above services for Dr. Sridhar Velasquez. 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 Right Hip Strength: -149130, [facility] goal of L-spine severity: NOTE, [facility] goal of special tests- bilateral: NOTE, [facility] goal of HEP Compliance: [id number] [facility] 05-05-2022 Evaluation note* Encounter Date Assessment [...] Patient Targets Encounter Date Instructions Goals 07/03/2021 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 Strength: -585658, 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 Left Hip Strength: -533218, 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 IKristi scribed the following above services for Dr. Sridhar Velasquez. 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 Patient Targets Encounter Date Instructions Goals 06/19/2021 [facility] 06-05-2021 Miscellaneous Notes* ED Procedure Note - [...] examination, documentation, and discharge. documented in this [id number] Emergency department Note* Pily Duff RN - 08/03/2020 6:29 PM EDT Pt reports that she was sitting at the bus stop for an hour and a half waiting for someone to come and get her when it started to feel like I couldn't breathe. Pt c/o drowsiness at this time. documented in this [id number] Hospital Discharge instructions * Instructions* Dawood Davalos CNP - 08/03/2020 Please increase your oral hydration, follow-up with your primary care physician in 3 to 7 days, return to ER for worsening symptoms or any other concerns. * Attachments The following attachments cannot be sent through Care Everywhere. * Oral Rehydration (Slovak) documented in this [id number] History of Past illness Narrative* Problem Noted Date Resolved Date Calculus of gallbladder with out mention of cholecystitis or obstruction 02/11/2007 06/28/2018 documented as of this encounter (statuses as of 05/25/2022) [facility] of [facility] illness Narrative* Problem Noted Date Diagnosed Date Resolved Date Calculus of gallbladder with out mention of cholecystitis or obstruction 02/11/2007 06/28/2018 documented as of this encounter (statuses as of 10/10/2022) [facility] of [facility] Narrative* Problem Noted Date Diagnosed Date Resolved Date Calculus of gallbladder with out mention of cholecystitis or obstruction 02/11/2007 06/28/2018 documented as of this encounter (statuses as of 10/30/2022) [facility] of [facility] Narrative* Problem Noted Date Diagnosed Date Resolved Date Calculus of gallbladder with out mention of cholecystitis or obstruction 02/11/2007 06/28/2018 documented as of this encounter (statuses as of 10/30/2022) [facility] Narrative* Problem Noted Date Diagnosed Date Resolved Date Calculus of gallbladder with out mention of cholecystitis or obstruction 02/11/2007 06/28/2018 documented as of this encounter (statuses as of 10/31/2022) [place] [id number] History of Past illness Narrative* Problem Noted Date Diagnosed Date Resolved Date Calculus of gallbladder with out mention of cholecystitis or obstruction 02/11/2007 06/28/2018 documented as of this encounter (statuses as of 12/12/2022) [place] [id number] History of Past illness Narrative* Problem Noted Date Diagnosed Date Resolved Date Calculus of gallbladder with out mention of cholecystitis or obstruction 02/11/2007 06/28/2018 documented as of this encounter (statuses as of 02/05/2023) [place] [id number] History of Past illness Narrative* Problem Noted Date Diagnosed Date Resolved Date Calculus of gallbladder with out mention of cholecystitis or obstruction 02/11/2007 06/28/2018 documented as of this encounter (statuses as of 04/07/2023) [facility] Narrative* Problem Noted Date Diagnosed Date Resolved Date Calculus of gallbladder with out mention of cholecystitis or obstruction 02/11/2007 06/28/2018 documented as of this encounter (statuses as of 04/22/2023) [facility] Narrative* Problem Noted Date Diagnosed Date Resolved Date Calculus of gallbladder with out mention of cholecystitis or obstruction 02/11/2007 06/28/2018 documented as of this encounter (statuses as of 04/23/2023) [facility] Narrative* Problem Noted Date Diagnosed Date Resolved Date Calculus of gallbladder with out mention of cholecystitis or obstruction 02/11/2007 06/28/2018 documented as of this encounter (statuses as of 05/20/2023) [facility] Narrative* Problem Noted Date Diagnosed Date Resolved Date Calculus of gallbladder with out mention of cholecystitis or obstruction 02/11/2007 06/28/2018 documented as of this encounter (statuses as of 05/21/2023) [facility] Author Dr. Almeida [facility] August 24, 2022 11:24am Note Date/Time August 24, 2022 10:5 1am [facility] Medical Records Department [address] [place] [address] Emergency Department Summary 08/24/22 MR#: [id number] Acct: [id number] Name: LAKEISHA TOPETE Rep #:[id number] : 1970 52 From: Jaden Almeida MD PCP: Care Physician,No Primary Status :REG ER Location: ED HPI HPI - GI History of Present Illness Chief Complaint: Nausea/Vomiting Informant: patient Abdominal Pain/Flank Pain Onset: Today Context: Gradual Onset Timing: Intermittent Quality: Cramping Location: Diffuse Current Severity: Mild Maximum Severity: Mild Nausea/Vomiting/Emesis GI Symptom: Positive for Nausea and Vomiting Onset: Today Severity: Mild Diarrhea/Melena/Hematochezia GI Symptom: Negative for Diarrhea, Melena or Hematochezia Associated Symptoms Associated Symptoms: Negative for Dysuria, Frequency or Hematuria Narrative Narrative: 52-year-old female history of diabetes, hypertension and prior appendectomy. States she had nausea and vomiting earlier this morning around 1 AM. Some diffuse abdominal cramping. Vomiting is resolved. No diarrhea. No dysuria. No fever. She is a known diabetic has not checked her blood sugar for a couple of days the last time she did it was around 160. Prior similar symptoms: Yes Recent Illness/Hospitalization: No PFSH PFSH Medical History Asthma Diabetes Hypertension Home Medications simvastatin 20 mg tablet 20 mg PO QHS cholesterol 06/28/18 [History Last Taken 07/17/18] albuterol sulfate 90 mcg/actuation aerosol inhaler (Proventil HFA) 2 puff inhalation Q4H PRN PRN Sob &/Or Wheezing 07/18/18 [History Last Taken 07/18/18] fluoxetine 20 mg capsule 20 mg PO DAILY depression 07/18/18 [History Last Taken 07/17/18] metformin 500 mg tablet 500 mg PO BID #20 tabs 05/25/22 [Rx Last Taken Unknown] ondansetron 4 mg disintegrating tablet 4 mg PO Q8H PRN PRN Nausea #7 tabs 08/24/22 [Rx Last Taken Unknown] Allergy/AdvReac Type Severity Reaction Status Date / Time Penicillins AdvReac Vomiting Verified 08/24/22 10:39 Surgical History Hx of breast surgery Hx of tubal ligation Social History Smoking Status: Never smoker ROS ROS ED ROS Narrative Abdominal cramping. Nausea and vomiting. Review of Systems ROS Unobtainable: Denies due to encephalopathy Constitutional Constitutional ED: Denies chills or fever(s) ENT ENT ED: Denies ear pain Cardiovascular Cardiovascular: Denies chest pain Respiratory/Chest Respiratory/Chest: Denies cough Gastrointestinal Gastrointestinal: Reports abdominal pain, nausea and vomiting; Denies constipation, diarrhea or melena Genitourinary Genitourinary ED: Denies dysuria or hematuria Musculoskeletal Musculoskeletal: Denies arthralgias Integumentary Denies abscess Neurologic Neurologic: Denies headache(s) Psychiatric Psychiatric: Denies anxiety Endocrine Endocrinology: Denies polydipsia Hematologic/Lymphatic Hematologic/Lymphatic: Denies easy bleeding Allergic/Immunologic Allergic/Immunologic ED: Denies mouth swelling or tongue swelling EXAM Physical Exam Narrative Exam Narrative: Well-appearing 52-year-old female. Vital signs stable afebrile. Does not look septic toxic or in distress. H EENT exam mild dry mucous membranes. Otherwise unremarkable. Pupils round reactive light. No facial droop. Neck nontender. No lymphadenopathy. Lungs clear to auscultation bilateral. Heart regular rhythm no murmur. Abdomen soft nondistended normal bowel sounds no peritoneal signs. Minimal epigastric discomfort. No hernia or mass. No signs of obstruction. No right upper or right lower quadrant tenderness. Back nontender. Moving all 4 extremities. Nontender. No significant edema. Neurologically she is awake and alert. Answering questions following commands. No motor deficits. Const Vital Signs: 08/24/22 10:30 08/24/22 11:00 Temperature 96.7 F L Temperature Source Temporal Pulse Rate 78 72 Respiratory Rate 18 16 Blood Pressure 144/86 H 151/91 H Blood Pressure Mean 105 111 Pulse Ox 98 96 Oxygen Delivery Method Room Air Room Air Positive well nourished, well developed and obese; Negative for cachectic, contractures or unkempt General Appearance ED: well developed and NAD; Negative for unkempt, cachectic, contractures or pallor Nutritional Appearance: obese; Negative for cachectic HEENT Reports dry mucous membranes normocephalic and atraumatic; Negative for trauma or tenderness Mouth ED: Yes dry mucous membranes Mouth: dry mucous membranes Eyes PERRL and EOMs intact bilaterally General Eye ED: Negative for pale conjunctiva or scleral icterus Neck no lymphadenopathy, supple and no JVD General: Negative for tenderness Carotids: Negative for other Lymph Lymphatic: Negative for other Resp normal respiratory effort and clear to auscultation bilaterally Effort and Inspection: Negative for respiratory distress Auscultation: Negative for rales, rhonchi or wheezes Cardio regular rate, regular rhythm, S1 normal heart sound, S2 normal heart sound and no murmurs Rate: Negative for bradycardia or tachycardic Rhythm: Negative for abnormal rhythm GI non-distended and no masses; Negative for non-tender GI Narrative: Very minor epigastric tenderness. Inspection: Negative for abdominal distention Auscultation: normoactive bowel sounds Palpation: soft and tender; Negative for guarding, rigid, hepatomegaly, splenomegaly, hernia, mass, pulsatile mass or rebound tenderness present Back/Spine no CVA tenderness General Back: Negative for CVA tenderness Cervical Spine: Negative for cervical spine tenderness Thoracic Spine / Upper Back: Negative for thoracic spinal tenderness Lumbar Spine / Lower Back: Negative for lumbar spinal tenderness Coccyx: Negative for other Extremity full ROM General Extremety ED: Negative for edema or tenderness General Extremity: Negative for edema Neuro CN's II-XII intact bilaterally and moves all extremities Sensorium / Orientation: alert, oriented to person, oriented to place and oriented to time; Negative for orientation impaired, confused, lethargic or stuporous Motor Exam: strength 5/5 throughout Psych mental status grossly normal and thought process normal Appearance: Negative for unkempt Attitude: No agitated Mood & Affect: Negative for depressed, anxious or tearful Skin no wounds General Skin Exam: Negative for jaundice or pallor Lesions: no lesions Rashes: no rashes Trauma: Negative for abrasion Nails: Negative for discolored MDM MDM MDM Narrative Medical decision making narrative: 52-year-old with nausea and vomiting. Exam benign. She is diabetic she is complaining some mild abdominal discomfort but has a very benign abdominal exam. I do not think she needs imaging. She will get IV fluids and screening labs. Repeat exam at 11:19 AM patient doing well. Abdomen benign. Nontender. She and I went over all of her test results. She is comfortable being discharged home. She requested a work excuse. I will send a prescription of Zofran to [facility] pharmacy. History & Record Review Discussion w/independent historian: Patient Additional record(s) reviewed:: Prior inpatient record, Prior outpatient record,Prior ED visit and Prior labs Lab Data Attestation: I reviewed the patient's lab results. Lab results narrative: CBC shows white count 8.4. H&H 10.4 and 35.3. Patient has a baseline anemia this is along her baseline or even improved. Platelets 328. Chemistries show a gap of 7. Normal BUN and creatinine. Liver enzymes unremarkable. Glucose 120. Lipase normal at 25. Labs: Laboratory Results - last 24 hr 08/24/22 08/24/22 10:50 10:50 WBC 8.4 RBC 4.73 Hgb 10.4 L Hct 35.3 L MCV 74.6 L MCH 22.0 L MCHC 29.5 L RDW Std Deviation 50.8 H RDW Coeff of Yohannes 18.9 H Plt Count 328 MPV 10.0 Immature Gran % (Auto) 0.600 Neut % (Auto) 58.5 Lymph % (Auto) 30.0 [place] % (Auto) 8.0 Eos % (Auto) 2.4 Baso % (Auto) 0.5 Absolute Neuts (auto) 4.9 Absolute Lymphs (auto) 2.52 Nucleated RBC % 0 Sodium 138 Potassium 3.5 Chloride 106 Carbon Dioxide 25.0 Anion Gap 7 BUN 18 Creatinine 0.85 Estim Creat Clear Calc 102.62 Est GFR (MDRD) Af Amer 91 Est GFR (MDRD) Non-Af 75 BUN/Creatinine Ratio 21.2 H Glucose 120 H Calcium 8.9 Total Bilirubin 0.30 AST 10 L ALT 15 Alkaline Phosphatase 92 Total Protein 7.8 Albumin 3.3 Globulin 4.5 H Albumin/Globulin Ratio 0.7 L Lipase 25 Discharge Plan Triage Chief Complaint: Nausea/Vomiting ED Provider: Jaden Almeida Dx/Rx/DC Orders Clinical Impression: Nausea & vomiting, History of diabetes mellitus, History of hypertension Instructions: ED Vomiting (Adult) Prescriptions: New ondansetron 4 mg tablet,disintegrating 4 mg PO Q8H PRN PRN (Reason: Nausea) Qty: 7 0RF No Action simvastatin 20 tablet 20 mg PO QHS albuterol sulfate [Proventil HFA] 6.7 GM HFA aerosol inhaler 2 puff inhalation Q4H PRN PRN (Reason: Sob &/Or Wheezing) fluoxetine 20 MG capsule 20 mg PO DAILY Label Comments: TAKE 1 CAPSULE BY MOUTH DAILY metformin 500 mg tablet 500 mg PO BID Qty: 20 0RF Primary Care Provider: Care Physician,No Primary Referrals: Negrito Hummel MD [Med Staff - Active Staff] - As Needed Care Physician,No Primary [Primary Care Provider] - Activity Restrictions/Additional Instructions: Your labs look good today. Zofran as needed for nausea which you may swallow or let it dissolve under your tongue. Follow-up with your primary care provider if you do not have one I referred you to a doctor locally. Plenty of fluids and rest. Return if feeling worse. Disposition Disposition: Home, Self Care What to do if you have Problems For any increased pain, shortness of breath, bleeding, nausea or vomiting, chestpain, or any unexpected problems, contact your Primary Care Provider. Call [facility] ([phone]) or report to the closest Emergency Room. Call 911 if necessary. 08/24/22 1124 <Electronically signed by Jaden Almeida MD> Cosigner Signature (if applicable): CC: No Primary Care Physician ~ Signed [facility] Work Phone: Discharge summary Author Micky Keith [facility] Note Date/Time May 12, 2024 4:4 5am [facility] Medical Records Department [address] [place] [address] Emergency Department Summary 05/12/24 MR#: [id number] Acct: [id number] Name: LAKEISHA TOPETE Rep #:[id number] : 1970 53 From: Micky Keith DO PCP: CHRISSY Alcantara Status:REG E R Location: ED HPI History of Present Illness Chief Complaint: Nausea/Vomiting/Diarrhea Informant: patient Narrative Narrative: Patient is a 53-year-old female with past medical history of hypertension hyperlipidemia [id number] diabetes and bipolar disorder. She reportsthat she was recently sick with congestion and cough over the past 2 weeks whichseems to be improving. However today she had generalized abdominal discomfort slightly greater on the right with bouts of nausea vomiting and diarrhea. She denies any known sick contact. She reports that she has a history of a kidney stone on the right and has concerned that the stone may be worsening. She reports she has not been able to sleep secondary to the pain and recurrent symptoms and therefore comes in for evaluation [facility] Medical History Restless legs Anxiety Depression Sleep apnea Irregular heart beat Seizures TIA (transient ischemic attack) Hyperlipidemia Bipolar 1 disorder Hypertension Diabetes Asthma Home Medications ?Medication ?Instructions ?Recorded ?Last Taken ?Type fluoxetine 20 mg capsule 20 mg PO DAILY depression 12/01/23 History metformin 500 mg tablet 500 mg PO BID #20 tabs 05/2512/01/23 Rx budesonide-formoterol HFA 80 2 puff inhalation BID #10 .2 grams 01/04/23 12/01/23 Rx mcg-4.5 mcg/actuation aerosol inhaler (Symbicort) ibuprofen 800 mg tablet 800 mg PO TID PRN pain #20 t abs 09/07/23 12/01/23 Rx epinephrine 0.3 mg/0.3 mL 0.3 mg IM UD PRN anaphylaxis 12/01/23 Unknown History injection, auto-injector glipizide 5 mg tablet, extended 5 mg PO DAILY 12/01/23 12/01/23 History release 24 hr norethindrone acetate 5 mg tablet 5 mg PO BID PRN vag bleeding 12/01/23 12/02/23 History acetaminophen 500 mg tablet 500 mg PO Q6H PRN pain 05/2212/01/23 History albuterol sulfate 90 mcg/actuation 1 - 2 puff inhalati on Q4H PRN 12/02/23 Unknown History aerosol inhaler (Ventolin HFA) Wheezing aripiprazole 5 mg tablet 5 mg PO DAILY 12/02/2311/30 History losartan 25 mg tablet 25 mg PO DAILY 12/02/2304/24 History oxybutynin chloride 5 mg 5 mg PO DAILY 12/02/2311/30 History tablet,extended release 24 hr simvastatin 80 mg tablet 80 mg PO QHS 12/02/23 History cephalexin 500 mg capsule 500 mg PO TID 7 days #21 cap s 05/12/24 Unknown Rx ketorolac 10 mg tablet 10 mg PO 4X/DAY PRN pain 5 d ays 05/12/24 Unknown Rx #20 tabs ondansetron 4 mg disintegrating 4 mg PO TID PRN nausea and 05/12/24 Unknown Rx tablet vomiting #21 tabs oxycodone-acetaminophen 5 mg-325 1 tab PO Q6H PRN pain 3 days #12 05/12/24 Unknown Rx mg tablet (Percocet) tabs tamsulosin 0.4 mg capsule (Flomax) 0.4 mg PO DAILY 14 days #14 caps 05/12/24 Unknown Rx Allergy/AdvReac Type Severity Reaction Status Date / Time Penicillins AdvReac Vomiting Verified 05/12/24 01:55 Surgical History S/P dilatation and curettage Hx of cholecystectomy Hx of breast surgery Hx of tubal ligation Social History Smoking Status: Current some day smoker tobacco type: e-cigarettes ROS ROS ED Constitutional Constitutional ED: Denies chills or fever(s) Eyes Eyes: Denies blurry vision or change in vision ENT ENT ED: Denies sore throat Cardiovascular Cardiovascular: Denies chest pain Respiratory/Chest Respiratory/Chest: Reports cough; Denies dyspnea Gastrointestinal Gastrointestinal: Reports abdominal pain, diarrhea, nausea and vomiting Genitourinary Genitourinary ED: Denies dysuria or hematuria Musculoskeletal Musculoskeletal: Reports back pain Integumentary Denies rash Neurologic Neurologic: Denies headache(s) Hematologic/Lymphatic Hematologic/Lymphatic: Denies easy bleeding or easy bruising EXAM Physical Exam Const Vital Signs: 05/12/24 01:55 05/12/24 03:55 Temperature 97.8 F Temperature Source Oral Pulse Rate 100 75 Respiratory Rate 18 18 Blood Pressure 183/96 H 160/71 H Blood Pressure Mean 125 100 Pulse Ox 98 Oxygen Delivery Method Room Air Positive well nourished, well developed and obese General Appearance ED: well developed; Negative for pallor Nutritional Appearance: obese HEENT Reports dry mucous membranes HEENT Narrative: No tongue or lip swelling no oral lesions no airway edema or compromise No secondary findings in the posterior pharynx to suggest infection Mouth ED: Yes dry mucous membranes Mouth: dry mucous membranes Eyes PERRL and EOMs intact bilaterally General Eye ED: Negative for scleral icterus Neck supple Neck Narrative: No nuchal rigidity or meningeal sign Resp normal respiratory effort Resp Narrative: Breath sounds are slight diminished throughout with faint rhonchi noted in bilateral bases but otherwise no signs of respiratory distress Cardio regular rate and regular rhythm Rate: other Other Details: Heart is regular rate and rhythm Radial and carotid pulses are equal and symmetric GI non-distended and no masses GI Narrative: Abdomen is soft and nondistended with hyperactive bowel sounds. There is pain with palpation in the midepigastric as well as right upper and lower abdomen without voluntary guarding or rigidity. No pulsatile mass or fluid wave Auscultation: hyperactive bowel sounds Palpation: soft Back/Spine Back/Spine Narrative: Right CVA pain noted Extremity normal to inspection Neuro oriented x3, CN's II-XII intact bilaterally and no sensory deficits noted Sensorium / Orientation: alert Motor Exam: strength 5/5 throughout Psych Psych Narrative: Patient has a flat affect Skin no rashes or lesions noted and no wounds Skin Narrative: Skin turgor slightly increased General Skin Exam: Negative for jaundice or pallor MDM MDM MDM Narrative Medical decision making narrative: Patient arrived to the ER hypertensive but has a past medical history of this and otherwise vitals are stable. She reported roughly 2 weeks of mild congestion and cough which she states were improving but then developed bouts ofnausea vomiting diarrhea as well as right sided pain today. Patient most likelyhas a viral URI but in order to ensure this is not a pneumonia chest x-ray will be obtained. With the history of kidney stone and right sided abdominal pain there is concern for UTI versus pyelonephritis versus hydroureteronephrosis versus acute kidney injury versus acute appendicitis and secondary to his basic labs with a urine sample as well as a CT scan with IV contrast will be ordered. Patient's x-ray revealed no acute finding. Lab work showed leukocytosis at 15.1with left shift but otherwise no signs of NIKA or clinically significant electrolyte abnormality. Urine sample showed changes concerning/consistent with infection and therefore he was sent for culture and she was given Rocephin. CT scan showed right sided kidney stone but otherwise no signs of intestinal abscess perforation obstruction or appendicitis. At this time the patient does not have urosepsis she does not have NIKA and her pain is controlled and therefore there is no need for admission. Patient can be given symptomatic medication and can follow-up with urology as an outpatient to discuss further treatment options for her large kidney stone History & Record Review Discussion w/independent historian: Patient Lab Data Attestation: I reviewed the patient's lab results. Labs: Laboratory Results - last 24 hr 05/12/24 05/12/24 02:00 02:38 WBC 15.1 H RBC 4.07 L Hgb 9.7 L Hct 32.0 L MCV 78.6 L MCH 23.8 L MCHC 30.3 L RDW Std Deviation 47.3 H RDW Coeff of Yohannes 17.0 H Plt Count 303 MPV 10.1 Immature Gran % (Auto) 0.900 Neut % (Auto) 65.5 Lymph % (Auto) 23.6 [place] % (Auto) 7.9 Eos % (Auto) 1.8 Baso % (Auto) 0.3 Absolute Neuts (auto) 9.9 H Absolute Lymphs (auto) 3.56 Nucleated RBC % 0 Sodium 137 Potassium 3.2 L Chloride 102 Carbon Dioxide 20.8 L Anion Gap 15 BUN 11 Creatinine 0.82 Estim Creat Clear Calc 83.72 Est GFR (MDRD) Non-Af 86 BUN/Creatinine Ratio 12.8 Glucose 191 H Calcium 8.7 Total Bilirubin < 0.15 Direct Bilirubin < 0.08 AST 14 ALT 12 Alkaline Phosphatase 77 Total Protein 6.8 Albumin 3.6 Globulin 3.2 Lipase 31 Urine Color Straw Urine Clarity Clear Urine pH 6.5 Ur Specific [place] 1.015 Urine Protein 15 H Urine Glucose (UA) Normal Urine Ketones Negative Urine Occult Blood 25 H Urine Nitrite Positive H Urine Bilirubin Negative Urine Urobilinogen Normal Ur Leukocyte Esterase 500 H Urine RBC 0 SEEN Urine WBC >100 SEEN Ur Squamous Epith Cells 5-10 SEEN Urine Bacteria 3+ Urine Mucus 2+ Urine Test Negative Radiography Diagnostic Testing: Clinical Impression(s) from Imaging Studies Abdomen/Pelvis CT 05/12/24 02:31 IMPRESSION: Previously noted stone in the right renal pelvis is now at the proximal ureter measuring around 6 mm in presenting axis. Based on size may not spontaneously pass the UVJ. There is associated mild right hydronephrosis. Symmetric appearing nephrograms without perinephric stranding or fluid collection. Mild urothelial thickening of the lower right renal pelvis and proximal ureter may be reactive, inflammatory or infectious. There is now a 3.2 cm cystic focus right ovary. May follow-up with pelvic ultrasound in 1-2 menstrual cycles. One or more dose reduction techniques were used (e.g., Automated exposure control, adjustment of the mA and/or kV according to patient size, use of iterative reconstruction technique). Reading Location: [facility] Chest X-Ray 05/12/24 02:50 IMPRESSION: No evidence of acute disease. Reading Location: [facility] Chest x-ray as interpreted by the emergency medicine physician reveals no acute infiltrate pneumothorax or pleural effusion Discharge Plan Triage Chief Complaint: Nausea/Vomiting/Diarrhea ED Provider: Micky Keith Dx/Rx/DC Orders Clinical Impression: Kidney stone on right side, UTI (urinary tract infection), Nausea vomiting and diarrhea, Bipolar 1 disorder, Anemia, Hypertension Instructions: Urinary Tract Infections in Women, ED Gastroenteritis, Viral (Adult), ED Kidney Stone with Pain Prescriptions: New ondansetron 4 mg tablet,disintegrating 4 mg PO TID PRN (Reason: nausea and vomiting) Qty: 21 0RF tamsulosin [Flomax] 0.4 mg capsule 0.4 mg PO DAILY 14 Days Qty: 14 0RF cephalexin 500 mg capsule 500 mg PO TID 7 Days Qty: 21 0RF ketorolac 10 mg tablet 10 mg PO 4X/DAY PRN (Reason: pain) 5 Days Qty: 20 0RF oxycodone-acetaminophen [Percocet] 5-325 mg tablet 1 tab PO Q6H PRN (Reason: pain) 3 Days Qty: 12 0RF No Action fluoxetine 20 MG capsule 20 mg PO DAILY metformin 500 mg tablet 500 mg PO BID Qty: 20 0RF budesonide-formoterol [Symbicort] 80-4.5 mcg/actuation HFA aerosol inhaler 2 puff inhalation BID Qty: 10.2 0RF ibuprofen 800 mg tablet 800 mg PO TID PRN (Reason: pain) Qty: 20 0RF glipizide 5 mg tablet extended release 24hr 5 mg PO DAILY norethindrone acetate 5 mg tablet 5 mg PO BID PRN (Reason: vag bleeding) epinephrine 0.3 mg/0.3 mL auto-injector 0.3 mg IM UD PRN (Reason: anaphylaxis) acetaminophen 500 mg tablet 500 mg PO Q6H PRN (Reason: pain) aripiprazole 5 mg tablet 5 mg PO DAILY simvastatin 80 mg tablet 80 mg PO QHS losartan 25 mg tablet 25 mg PO DAILY oxybutynin chloride 5 mg tablet extended release 24hr 5 mg PO DAILY albuterol sulfate [Ventolin HFA] 90 mcg/actuation HFA aerosol inhaler 1 - 2 puff inhalation Q4H PRN (Reason: Wheezing) Rx Instructions: please give spacer Primary Care Provider: Desire Lanier NP Referrals: Linwood Vega MD [Med Staff - Active Staff] - (Kidney stone) Desire Lanier NP, SPEECH COACH-C [Primary Care Provider] - Activity Restrictions/Additional Instructions: Please follow-up with urology to discuss further treatment options such as lithotripsy or stent placement for the large 6 mm kidney stone found on today's CT scan. Take the prescribed medication as directed to resolve your UTI and control your pain. Return to the ER if you develop a fever over 100.4 the pain medications are not controlling your symptoms or you have any further concerns Print Language: Slovak Disposition Disposition: Home, Self Care What to do if you have Problems For any increased pain, shortness of breath, bleeding, nausea or vomiting, chestpain, or any unexpected problems, contact your Primary Care Provider. Call [facility] ([phone]) or report to the closest Emergency Room. Call 911 if necessary. 05/12/24 0445 <Electronically signed by Micky Keith DO> Cosigner Signature (if applicable): CC: CHRISSY Lanier ~ Signed [facility] Work Phone: Evaluation note* Diagnosis Shortness of breath- Primary [facility] Displacement of lumbar intervertebral disc without myelopathy- [facility] Iron deficiency- Primary Disorders of iron metabolism [facility] Encounter Date Assessment Date Assessment 08/28/2021 08/28/2021 Lakeisha TOPETE 51yo F [id number] DATE OF PROCEDURE: 09/16/2021 Dr Velasquez [facility] Surgery Unit:parking lot C: [phone] PATIENT INSTRUCTIONS: NOTHING to eat or drink [...] makeup, jewelry, perfume, body lotions, or nail telugu. DO NOT bring valuables. NO smoking or [...] and planning. LITERATURE/AUDIOVISUAL USED: Educational print out [employer] evaluation note No assessment recorded. [email or web address] evaluation noteNo assessment information available [facility] Work Phone: Evaluation note* Diagnosis Chest pain, unspecified type- Primary documented in this encounter [facility]* Diagnosis Acute right-sided low back pain with right-sided sciatica- Primary documented in this encounter [facility] note* Diagnosis Urinary tract infection with hematuria, site unspecified- Primary Flank pain Abdominal pain, unspecified site Headache, unspecified headache type documented in this encounter [facility] note* Diagnosis Onset Date Resolution Status Gastroenteritis acute [facility] Work Phone: Evaluation note* Diagnosis Acute foot pain, right- Primary Vertigo Dizziness and giddiness Muscle spasm of right leg Spasm of muscle documented in this encounter [facility] note* Diagnosis Pain and swelling of right lower leg- Primary [facility] Diagnosis Feeling light headed- Primary Dizziness and giddiness Elevated blood sugar Other abnormal glucose [facility] Diagnosis Posterior tibial tendon dysfunction- Primary Other disorders of synovium, tendon, and bursa Pes planus of both feet Controlled type 2 diabetes mellitus without complication, unspecified whether nursing home insulin use (HCC) [facility] Diagnosis Posterior tibial tendon dysfunction Other disorders of synovium, tendon, and bursa Pes planus of both feet Controlled type 2 diabetes mellitus without complication, unspecified whether nursing home insulin use (HCC) [facility]* Diagnosis Repetitive stress injury- Primary Unspecified site of sprain and strain [facility]* Diagnosis Repetitive stress injury Unspecified site of sprain and strain [facility]* Diagnosis Hypertension, essential- Primary Unspecified essential hypertension Iron deficiency anemia, unspecified iron deficiency anemia type Hyperlipidemia with target LDL less than 130 Other and unspecified hyperlipidemia [facility]* Diagnosis Vomiting and diarrhea- Primary Vomiting alone [facility]* Diagnosis Type 2 diabetes mellitus without complication, without long-term current use of insulin (HCC)- Primary Hyperlipidemia with target LDL less than 130 Other and unspecified hyperlipidemia PTSD (post-traumatic stress disorder) Posttraumatic stress disorder Recurrent major depressive disorder, remission status unspecified (HCC) Bipolar affective disorder, remission status unspecified (HCC) Right leg pain Pain in limb Muscle spasm of right leg Spasm of muscle Hypertension, essential Unspecified essential hypertension History of seizures Personal history of other disorders of nervous system and sense organs Convulsions, unspecified convulsion type (HCC) Moderate persistent asthma, unspecified whether complicated Recurrent headache Headache [facility]* Diagnosis Iron deficiency anemia, unspecified iron deficiency anemia type- Primary [facility]* Diagnosis Vomiting and diarrhea- Primary Vomiting alone Ulceration, skin (HCC) Iron deficiency anemia, unspecified iron deficiency anemia type [facility]* Diagnosis Procedure not carried out- Primary Procedure not carried out for other reasons [facility] Diagnosis Abnormal uterine bleeding (AUB)- Primary Iron deficiency anemia due to chronic blood loss Iron deficiency anemia secondary to blood loss (chronic) [facility] Diagnosis URI, acute- Primary Acute upper respiratory infections of unspecified site [facility] Diagnosis Abnormal uterine bleeding (AUB) Iron deficiency anemia due to chronic blood loss Iron deficiency anemia secondary to blood loss (chronic) [facility]* Diagnosis At high risk for pain from procedure- Primary Abnormal uterine bleeding (AUB) [facility] Diagnosis Abnormal uterine bleeding (AUB)- Primary Endometrial thickening on ultrasound Screening for cervical cancer Screening for malignant neoplasm of the cervix Screening for human papillomavirus Special screening examination for human papillomavirus (HPV) Iron deficiency anemia due to chronic blood loss Iron deficiency anemia secondary to blood loss (chronic) [facility] Diagnosis Menorrhagia with regular cycle- Primary Excessive or frequent menstruation Iron deficiency anemia due to chronic blood loss Iron deficiency anemia secondary to blood loss (chronic) Submucous uterine fibroid Submucous leiomyoma of uterus Thickened endometrium Nonspecific (abnormal) findings on radiological and other examination of genitourinary organs [facility] Diagnosis Hyperlipidemia with target LDL less than 130- Primary Other and unspecified hyperlipidemia [facility]* Diagnosis Iron deficiency anemia due to chronic blood loss- Primary Iron deficiency anemia secondary to blood loss (chronic) Encounter for screening mammogram for malignant neoplasm of breast Other screening mammogram [facility] Diagnosis Iron deficiency anemia due to chronic blood loss- Primary Iron deficiency anemia secondary to blood loss (chronic) Poor iron absorption Other specified intestinal malabsorption [facility] Diagnosis Poor iron absorption- Primary Other specified intestinal malabsorption Iron deficiency anemia due to chronic blood loss Iron deficiency anemia secondary to blood loss (chronic) [facility]* Diagnosis Hyperlipidemia with target LDL less than 130 Other and unspecified hyperlipidemia [facility]* Diagnosis Iron deficiency anemia secondary to blood loss (chronic)- Primary [facility]* Diagnosis Contusion of right hip, initial encounter- Primary Lumbar back pain Lumbago Cellulitis of face Cellulitis and abscess of face Degeneration of intervertebral disc of lumbar region, unspecified whether pain present [facility]* Diagnosis Type 2 diabetes mellitus without complication, without long-term current use of insulin (HCC) documented in this encounter [facility] note* Diagnosis URI, acute- Primary Acute upper respiratory infections of unspecified site documented in this encounter [facility] note* Diagnosis Onset Date Resolution Status Admit Date Calculus of proximal right ureter ac sharifa May 30, 2024 7:16pm [facility] Work Phone: Evaluation note* Diagnosis Type 2 diabetes mellitus without complication, without long-term current use of insulin (HCC)- Primary Hyperlipidemia with target LDL less than 130 Other and unspecified hyperlipidemia Iron deficiency anemia, unspecified iron deficiency anemia type Hypertension, essential Unspecified essential hypertension Recurrent major depressive disorder, remission status unspecified Moderate persistent asthma, unspecified whether complicated (HCC) Chest pain, unspecified type Encounter for screening for cardiovascular disorders Screening for other and unspecified cardiovascular conditions Acute cough SOB (shortness of breath) on exertion Shortness of breath Near syncope Syncope and collapse Edema of right lower extremity Edema Dizziness and giddiness Palpitations documented in this encounter [facility] note* Diagnosis Encounter for screening for cardiovascular disorders Screening for other and unspecified cardiovascular conditions Chest pain, unspecified type SOB (shortness of breath) on exertion Shortness of breath Near syncope Syncope and collapse documented in this encounter [facility] note* Diagnosis Encounter for screening mammogram for malignant neoplasm of breast Other screening mammogram documented in this encounter [facility] general Narrative - Reported* Condition Response Arthritis Y Acid Reflux (GERD) Y Anxiety Disorder Y High blood pressure Y Gynecological HistoryNo gynecological history recorded. Obstetrics History GPAL:G 0 P 0 0 0 0 MUJIN History general Narrative - Reported* Condition Response Arthritis Y Acid Reflux (GERD) Y Anxiety Disorder Y High blood pressure Y Gynecological History Statement/Question Response LMP Approximate Obstetrics History GPAL:G 5 P 5 0 0 5 Type Value Full Term 5 Living 5 Total 5 IA [email or web address] History general Narrative - Reported* Condition Response High blood pressure Y Anxiety Disorder Y Arthritis Y Acid Reflux (GERD) Y Gynecological History Statement/Question Response LMP Approximate Obstetrics History GPAL:G 5 P 5 0 0 5 Type Value Full Term 5 Living 5 Total 5 MUJIN History general Narrative - Reported* Condition Response Anxiety Disorder Y High blood pressure Y Acid Reflux (GERD) Y Arthritis Y Gynecological History Statement/Question Response LMP Approximate Obstetrics History GPAL:G 5 P 5 0 0 5 Type Value Full Term 5 Living 5 Total 5 MUJIN Hospital Discharge instructions Additional Instructions Your labs look good today. Zofran as needed for nausea which you may swallow or let it dissolve under your tongue. Follow-up with your primary care provider if you do not have one I referred you to a doctor locally. Plenty of fluids and rest. Return if feeling worse.[facility] Work Phone: Hospital Discharge instructions Additional Instructions Thank you for trusting us with your care today! Please take Tylenol (2 pills, 650 mg), ibuprofen (2 pills, 400 mg) every 6 hours as needed for pain and fever control. Please return to the emergency department if your symptoms change or worsen. Specifically be of heavier bleeding. He lose consciousness. If develop pallor. Eval palpitations, chest pain or focal weakness. Please follow with your primary care physician for further outpatient evaluation and management.[facility] Work Phone: Hospital Discharge instructions Additional Instructions Monitor blood sugars 3 times a day and maintain a log. Follow-up with primary care provider in 1 week.[facility] Work Phone: Hospital Discharge instructions Additional Instructions Return for any worsening of your symptoms, follow-up with PCP.[facility] Work Phone: Hospital Discharge instructions Additional Instructions Please follow-up with urology to discuss further treatment options such as lithotripsy or stent placement for the large 6 mm kidney stone found on today's CT scan. Take the prescribed medication as directed to resolve your UTI and control your pain. Return to the ER if you develop a fever over 100.4 the pain medications are not controlling your symptoms or you have any [facility] Work Phone: Hospital Discharge instructionsAdditional Instructions Follow-up with urology. Return back to the ED if symptoms change or worsen. You were given your first dose of antibiotic here in the emergency department. Do not drive or operate heavy machinery while taking narcotics. They can increase falls as well as confusion.[facility] Work Phone: Reason for referral (narrative)* Diagnostic Procedure Only (Routine) - Pending Review Specialty Diagnoses / Procedures Referred By Viryac t Referred To Contact [facility] Diagnoses Acute foot pain, right Procedures XR FOOT GENERAL 3V AP/LAT/OBL RIGHT RADEX FOOT COMPLETE MINIMUM 3 VIEWS Katherine Hubbard APRN.CNP [address] [place] [address] [place] [address] Referral ID Status Reason Start Date Expiration Date Visits Requested Visits Authorized [id number] Pending Review Auto-Generat ed Referral 01/11/2024 1 1 [facility] for referral (narrative)* Diagnostic Procedure Only (Routine) - Closed Specialty Diagnoses / Procedures Referred By Joshua albarado Referred To Contact [facility] Diagnoses Posterior tibial tendon dysfunction Pes planus of both feet Controlled type 2 diabetes mellitus without complication, 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 (HCC) Procedures XR ANKLE GENERAL 3V AP/LAT/OBL BILATERAL RADEX ANKLE COMPLETE MINIMUM 3 VIEWS Brunilda Alfonso [address] [place] [address] [place] [address] Referral ID Status Reason Start Date Expiration Date V isits Requested Visits Authorized [id number] Closed Auto-Generate d Referral 04/22/2023 05/21/2024 1 1 * Diagnostic Procedure Only (Routine) - Closed Specialty Diagnoses / Procedures Referred By Contac t Referred To Contact [facility] Diagnoses Posterior tibial tendon dysfunction Pes planus of both feet Controlled type 2 diabetes mellitus without complication, 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 (HCC) Procedures XR FOOT GENERAL 3V AP/LAT/OBL BILATERAL RADEX FOOT COMPLETE MINIMUM 3 VIEWS Brunilda [place] [address] [place] [address] Referral ID Status Reason Start Date Expiration Date V isits Requested Visits Authorized [id number] Closed Auto-Generate d Referral 04/22/2023 05/21/2024 1 1 [facility] for referral (narrative)* Diagnostic Procedure Only (Urgent) - Closed Specialty Diagnoses / Procedures Referred By Contac t Referred To Contact [facility] Diagnoses Repetitive stress injury Procedures XR ANKLE GENERAL 3V AP/LAT/OBL RIGHT RADEX ANKLE COMPLETE MINIMUM 3 VIEWS Brunilda Alfonso [address] [place] [address] [place] [address] Referral ID Status Reason Start Date Expiration Date V isits Requested Visits Authorized [id number] Closed Auto-Generate d Referral 05/20/2023 06/18/2024 1 1 [facility] for referral (narrative)* Diagnostic Procedure Only (Urgent) - Closed Specialty Diagnoses / Procedures Referred By Contac t Referred To Contact [facility] Diagnoses Repetitive stress injury Procedures XR ANKLE GENERAL 3V AP/LAT/OBL RIGHT RADEX ANKLE COMPLETE MINIMUM 3 VIEWS Brunilda Alfonso [address] [address] [place] [address] Referral ID Status Reason Start Date Expiration Date V isits Requested Visits Authorized [id number] Closed Auto-Generate d Referral 05/20/2023 06/18/2024 1 1 T [facility] for referral (narrative)* Diagnostic Procedure Only (Routine) - Authorized Specialty Diagnoses / Procedures Referred By Contac t Referred To Contact [facility] Diagnoses Abnormal uterine bleeding (AUB) Iron deficiency anemia due to chronic blood loss Procedures PELVIC US WHI US PELVIC NONOBSTETRIC REAL-TIME IMAGE COMPLETE Suze Pleitez APRN.CNM [address] [place] [address] [id number] [place] [address] Referral ID Status Reason Start Date Expiration Date Visits Requested Visits Authorized [id number] Authorized Auto-Generat ed Referral 10/20/2023 10/19/2024 1 1 * Outpatient Procedure (Routine) - Authorized Specialty Diagnoses / Procedures Referred By Contac t Referred To Contact [facility] Diagnoses Abnormal uterine bleeding (AUB) Iron deficiency anemia due to chronic blood loss Procedures ENDOMETRIAL BIOPSY ENDOMETRIAL BX W/WO ENDOCERVIX BX W/O DILAT Suze Wynne APRN.CNM [address] [place] [address] [facility] [address] [place] [id number] Referral ID Status Reason Start Date Expiration Date Visits Requested Visits Authorized [id number] Authorized Auto-Generat ed Referral 10/20/2023 10/19/2024 1 1 [facility] for referral (narrative)* Outpatient Procedure (Routine) - New Request Specialty Diagnoses / Procedures Referred By Contac t Referred To Contact [facility] Diagnoses Abnormal uterine bleeding (AUB) Endometrial thickening on ultrasound Procedures ENDOMETRIAL BIOPSY ENDOMETRIAL BX W/WO ENDOCERVIX BX W/O DILAT Suze Wynne APRN.CNM [address] [place] [address] [address] Referral ID Status Reason Start Date Expiration Date Visits Requested Visits Authorized [id number] New Request Auto-Generat ed Referral 11/17/2023 11/16/2024 1 1 [facility] for referral (narrative)* Diagnostic Procedure Only (Routine) - Authorized Specialty Diagnoses / Procedures Referred By Contac t Referred To Contact [facility] Diagnoses Encounter for screening mammogram for malignant neoplasm of breast Procedures OCTAVIO SCREENING W SYLVESTER SCREENING DIGITAL BREAST TOMOSYNTHESIS BI SCREENING MAMMOGRAPHY BI 2-VIEW BREAST INC CAD Emily Plunkett MD [address] [place] [address] [facility] [address] [place] [address] Referral ID Status Reason Start Date Expiration Date Visits Requested Visits Authorized [id number] Authorized Auto-Generat ed Referral 01/21/2025 1 1 [facility] for referral (narrative)* Diagnostic Procedure Only (Urgent) - Closed Specialty Diagnoses / Procedures Referred By Joshua t Referred To Contact [facility] Diagnoses Lumbar back pain Procedures XR LUMBAR GENERAL 3V AP/LAT/L5-S1 RADEX SPINE LUMBOSACRAL 2/3 VIEWS Sean An PA-C [address] [facility] [address] [place] [address] [place] [address] Referral ID Status Reason Start Date Expiration Date V isits Requested Visits Authorized [id number] Closed Auto-Generate d Referral 03/22/2024 04/21/2025 1 1 * Diagnostic Procedure Only (Urgent) - Closed Specialty Diagnoses / Procedures Referred By Joshua t Referred To Contact [facility] Diagnoses Contusion of right hip, initial encounter Procedures XR HIP GENERAL 3V PELV/AP/LAT RIGHT RADEX HIP UNILATERAL WITH PELVIS 2-3 VIEWS Sean An PA-C [address] [facility] [address] [place] [address] [place] [address] Referral ID Status Reason Start Date Expiration Date V isits Requested Visits Authorized [id number] Closed Auto-Generate d Referral 03/22/2024 04/21/2025 1 1 [facility] for visit Narrative* Diagnostic Procedure Only (Routine) - Closed Specialty Diagnoses / Procedures Referred By Contac t Referred To Contact [facility] Diagnoses Posterior tibial tendon dysfunction Pes planus of both feet Controlled type 2 diabetes mellitus without complication, 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 (HCC) Procedures XR ANKLE GENERAL 3V AP/LAT/OBL BILATERAL RADEX ANKLE COMPLETE MINIMUM 3 VIEWS Brunilda Alfonso [address] [place] [address] [place] [address] Referral ID Status Reason Start Date Expiration Date V isits Requested Visits Authorized [id number] Closed Auto-Generate d Referral 04/22/2023 05/21/2024 1 1 [facility] for visit Narrative* Diagnostic Procedure Only (Urgent) - Closed Specialty Diagnoses / Procedures Referred By Contac t Referred To Contact [facility] Diagnoses Repetitive stress injury Procedures XR ANKLE GENERAL 3V AP/LAT/OBL RIGHT RADEX ANKLE COMPLETE MINIMUM 3 VIEWS Brunilda Alfonso [address] [place] [address] [facility] Referral ID Status Reason Start Date Expiration Date V isits Requested Visits Authorized [id number] Closed Auto-Generate d Referral 05/20/2023 06/18/2024 1 1 [facility] for visit Narrative* Diagnostic Procedure Only (Routine) - Closed Specialty Diagnoses / Procedures Referred By Contac t Referred To Contact [facility] Diagnoses Abnormal uterine bleeding (AUB) Iron deficiency anemia due to chronic blood loss Procedures PELVIC US I US PELVIC NONOBSTETRIC REAL-TIME IMAGE COMPLETE Suze Pleitez APRN.CNYee [address] [place] [address] [facility] [address] [place] [address] Referral ID Status Reason Start Date Expiration Date V isits Requested Visits Authorized [id number] Closed Auto-Generate d Referral 10/20/2023 10/19/2024 1 1 [facility] for visit Narrative* Diagnostic Procedure Only (Urgent) - Closed Specialty Diagnoses / Procedures Referred By Contac t Referred To Contact [facility] Diagnoses Lumbar back pain Procedures XR LUMBAR GENERAL 3V AP/LAT/L5-S1 RADEX SPINE LUMBOSACRAL 2/3 VIEWS Sean An PA-C [address] [facility] [address] [place] [address] [place] [address] Referral ID Status Reason Start Date Expiration Date V isits Requested Visits Authorized [id number] Closed Auto-Generate d Referral 03/22/2024 04/21/2025 1 1 [facility] for visit Narrative* Diagnostic Procedure Only (Routine) - Closed Specialty Diagnoses / Procedures Referred By Contamara t Referred To Contact [facility] Diagnoses Encounter for screening for cardiovascular disorders Chest pain, unspecified type SOB (shortness of breath) on exertion Near syncope Procedures NM CARDIAC PERF STRESS/EXERCISE MYOCARDIAL SPECT MULTIPLE STUDIES Desire Lanier, COVER REMOVER.SUPERVISOR [employer] GRADING [address] [place] [address] Phone: tel: fax: [facility] [address] [place] [address] Phone: tel: Referral ID Status Reason Start Date Expiration Date V isits Requested Visits Authorized [id number] Closed Auto-Generat ed Referral Patient Cleared - Admin/Chairm an/Director advise to proceed or did not respond 07/13/2024 08/12/2025 1 0 [facility] for visit Narrative* Diagnostic Procedure Only (Routine) - Closed Specialty Diagnoses / Procedures Referred By Joshua albarado Referred To Contact [facility] Diagnoses Encounter for screening mammogram for malignant neoplasm of breast Procedures OCTAVIO SCREENING W SYLVESTER SCREENING DIGITAL BREAST TOMOSYNTHESIS BI SCREENING MAMMOGRAPHY BI 2-VIEW BREAST INC CAD Emily Plunkett MD [address] [place] [address] Phone: tel: fax: [facility] [address] [place] [address] Referral ID Status Reason Start Date Expiration Date V isits Requested Visits Authorized [id number] Closed Auto-Generate d Referral 12/23/2023 01/21/2025 1 1 [facility] Discharge Instructions * Discharge Instr - AVS First Page* Ranjeet Miguel PA-C - 12/06/2018 10:15 AM EDT Recommend continued compression stockings and elevated lower extremities as able. Please return to ED immediately if having recurrent chest pains. Recommend seeing PCP in 1 week foroutpatient stress testing vs. Echocardiogram. documented in this encounter* Attachments The following attachments cannot be sent through Care Everywhere. 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 and Livin g Will 12/06/2018 2:14 AM Advance Directives and Livin g Will 04/29/2019 11:49 AM Latest Code Status on File Code Status Date Activated Date Inactivated Comments Full Code 12/06/2018 1:26 AM 04/29/2019 11:17 AM Documents on File Type Date Recorded 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 and Livin g Will 08/03/2020 2:14 AM Advance Directives and Livin g Will 08/03/2020 11:49 AM Documents on File Type Date Recorded 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 and Livin g Will 01/21/2021 10:09 AM Advance Directives and Livin g Will 10/13/2020 9:57 PM Latest Code Status on File Code Status Date Activated Date Inactivated Comments Full Code 12/06/2018 1:26 AM 04/29/2019 11:17 AM Documents on File Type Date Recorded 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 and Livin g Will 02/11/2021 10:09 AM Advance Directives and Livin g Will 10/13/2020 9:57 PM Advance Directive Response Recorded Date/ Time Living Will No May 25, 2022 3:57pm Power of Alley Cleaner No May 25 3:57pm Advance Directive Response Recorded Date/ Time Living Will No August 24, 2022 10:40am Power of Alley Cleaner No August 24 10:40am Advance Directive Response Recorded Date/ Time Living Will No September 09, 2022 3:48pm Power of Alley Cleaner No September 09 3:48pm Advance Directive Response Recorded Date/ Time Living Will No November 06 2 023 11:32am Power of Alley Cleaner No November 06, 2022 11:32am Advance Directive Response Recorded Date/ Time Living Will No December 21 10:13pm Power of Alley Cleaner No December 21, 2022 10:13pm Advance Directive Response Recorded Date/ Time Living Will No February 10 023 11:11am Power of Alley Cleaner No February 10, 2023 11:11am Advance Directive Response Recorded Date/ Time Living Will No April 07 2:04pm Power of Alley Cleaner No April 07, 2023 2:04pm Advance Directive Response Recorded Date/ Time Living Will No May 03, 2023 11:47am Power of Alley Cleaner No May 02 11:47am Advance Directive Response Recorded Date/ Time Living Will No July 03, 2023 4: 05pm Power of Alley Cleaner No July 03, 2023 4:05pm Advance Directive Response Recorded Date/ Time Living Will No May 12, 2024 1:55am Power of Alley Cleaner No May 12 1:55am Living Will No April 28, 2 025 1:41pm Power of Alley Cleaner No April 28, 2024 1:41pm Advance Directive Response Recorded Date/ Time Living Will No May 12, 2024 1:55am Do you have a Healthcare Power of Alley Cleaner? No May 12, 2024 1:55am Living Will No April 28, 2 025 1:41pm Do you have a Healthcare Power of Alley Cleaner? No April 28, 2024 1:41pm Living Will No May 30, 2024 4:07pm Do you have a Healthcare Power of Alley Cleaner? No May 30, 2024 4:07pm Advance Directive Response Recorded Date/ Time Living Will No May 12, 2024 1:55am Do you have a Healthcare Power of Alley Cleaner? No May 12, 2024 1:55am Living Will No April 28, 2 025 1:41pm Do you have a Healthcare Power of Alley Cleaner? No April 28, 2024 1:41pm Living Will No May 30, 2024 7:55pm Do you have a Healthcare Power of Alley Cleaner? No May 30, 2024 7:55pm Advance Directive Response Recorded Date/ Time Living Will No May 12, 2024 1:55am Do you have a Healthcare Power of Alley Cleaner? No May 12, 2024 1:55am Living Will No May 30, 2024 7:55pm Do you have a Healthcare Power of Alley Cleaner? No May 30, 2024 7:55pm Do you have a Healthcare Power of Alley Cleaner? No August 29, 2024 4:15pm Summary Purpose Family History Relationship Description Onset Age of this Age Resolved Age Notes Father Family history of cancer Mother Family history of cancer Mother Chronic obstructive lung disease Unspecified Relation Myocardial infarction Unspecified Relation Hypertensive disorder Unspecified Relation Chronic kidney disease Unspecified Relation Dialysis care Relationship Condition Age at Onset Recorded Date/T portia father Chronic obstructive pulmonary disease Unk nown Coronary artery disease Unknown Myocardial infarction Unknown mother Malignant neoplasm Unknown Diabetes mellitus Unknown sister Malignant neoplasm Unknown brother Cardiac disease Unknown Assessments Diagnosis Influenza Influenza with other respiratory manifestations Nausea and vomiting, intractability of vomiting not specified, unspecified vomiting type Reason for Referral Specialty Diagnoses / Procedures Referred By Joshua albarado Referred To Contact Rehabilitation Diagnoses Displacement of lumbar intervertebral disc without myelopathy Jackson Page, SUPERVISOR FRUIT GRADING [address] [place] [address] [facility] [address] [facility], [address] [place] [address] Referral ID Status Reason Start Date Expiration Date V isits Requested Visits Authorized [id number] Authorized 01/31/2021 01/31/2022 1 1 wants iron infusions as oral meds constipate Referring Physician: Brunilda Brown, Internal Medicine, Encounter Date: 12/09/2020 Chiropractor Referral for An kle pain Referring Physician: Brunilda Brown, Internal Medicine, Encounter Date: 12/09/2020 Physical Therapist Referral for Displacement of lumbar intervertebral disc without myelopathy Referring Physician: Jackson Walters [facility], [phone] Encounter Date: 01/30/2021 Pain Management Referral for Displacement of lumbar intervertebral disc without myelopathy Referring Physician: [facility], [phone] Encounter Date: 01/30/2021 Physical Therapist Referral for Lumbosacral spondylosis Referring Physician: Magdalena Martinez, Encounter Date: 03/13/2021 Physical Therapist Referral for Lumbar spondylolisthesis Check for leg length discrepancy please Referring Physician: Magdalena Martinez, Encounter Date: 03/13/2021 Supervisor Assembling Referral for Gy necologic examination Referring Physician: Brunilda Brown Internal Medicine, Encounter Date: 06/19/2021 Wet Process Assistant Head Miller Referral for Screening for malignant neoplasm of colon Referring Physician: Brunilda Brown Internal Medicine, Encounter Date: 06/19/2021 Clinical Trials Manager Referral for Hyperglycemia diabetic eye exam and has amblyopia so our scanner wont work Referring Physician: Brunilda Brown Internal Medicine, Encounter Date: 06/19/2021 Specialty Diagnoses / Procedures Referred By Joshua albarado Referred To Contact Oncology Diagnoses Iron deficiency Brunilda Brown, [address] [place] [address] [facility] [address], [address] [place] [address] Referral ID Status Reason Start Date Expiration Date V isits Requested Visits Authorized [id number] Authorized 06/20/2021 06/20/2022 1 1 wants iron infusions as oral meds constipate Referring Physician: Brunilda Brown Internal Medicine, Encounter Date: 12/09/2020 Chiropractor Referral for An kle pain Referring Physician: Brunilda Brown Internal Medicine, Encounter Date: 12/09/2020 Physical Therapist Referral for Displacement of lumbar intervertebral disc without myelopathy Referring Physician: Jackson Walters [facility] Medicine, [phone] Encounter Date: 01/30/2021 Pain Management Referral for Displacement of lumbar intervertebral disc without myelopathy Referring Physician: Jackson Walters [facility] Medicine, [phone] Encounter Date: 01/30/2021 Physical Therapist Referral for Lumbosacral spondylosis Referring Physician: Jennifer Raphael Pain Management, Encounter Date: 03/13/2021 Physical Therapist Referral for Lumbar spondylolisthesis Check for leg length discrepancy please Referring Physician: Jennifer Raphael Pain Management, Encounter Date: 03/13/2021 Supervisor Assembling Referral for Gy necologic examination Referring Physician: Brunilda Brown, Internal Medicine, Encounter Date: 06/19/2021 Wet Process Assistant Head Miller Referral for Screening for malignant neoplasm of colon Referring Physician: Brunilda Brown, Internal Medicine, Encounter Date: 06/19/2021 Clinical Trials Manager Referral for Hyperglycemia diabetic eye exam and has amblyopia so our scanner wont work Referring Physician: Brunilda Brown, Internal Medicine, Encounter Date: 06/19/2021 Wet Process Assistant Head Miller Referral for Diarrhea Referring Physician: Connor Peterson, Urgent Care, Encounter Date: 08/14/2021 Specialty Diagnoses / Procedures Referred By Contac t Referred To Contact Diagnoses Urinary tract infection with hematuria, site unspecified Procedures ESTABLISH WITH PRIMARY CARE NEW PATIENT OFFICE/OUTPATIENT [facility] 60-74 MINUTES Katherine Hubbard, CHERIE.SUPERVISOR FRUIT GRADING [address] [place] [address] Referral ID Status Reason Start Date Expiration Date Visits Requested Visits Authorized [id number] Authorized PCP Requested Referral 10/29/2022 10/29/2023 1 1 Specialty Diagnoses / Procedures Referred By Contac t Referred To Contact Diagnoses History of seizures Convulsions, unspecified convulsion type (HCC) Procedures CONSULT TO NEUROLOGY OFFICE/OUTPATIENT [facility] 60 MINUTES Desire Lanier, COVER REMOVER.SUPERVISOR FRUIT GRADING [address] [place] [address] [place] [address] [place] [id number] Referral ID Status Reason Start Date Expiration Date Visits Requested Visits Authorized [id number] Authorized PCP Requested Referral 08/24/2023 08/23/2024 1 1 Specialty Diagnoses / Procedures Referred By Contac t Referred To Contact Diagnoses PTSD (post-traumatic stress disorder) Recurrent major depressive disorder, remission status unspecified (HCC) Procedures CONSULT TO [facility] ADULT TABBER Desire Lanier, COVER REMOVER.SUPERVISOR FRUIT GRADING [address] [place] [address] Delilah Fields LSW Referral ID Status Reason Start Date Expiration Date Visits Requested Visits Authorized [id number] Ref Not Required PCP Requested Referral 08/24/2023 11/22/2023 1 1 Specialty Diagnoses / Procedures Referred By Contac t Referred To Contact ADULT PSYCHIATRY Diagnoses PTSD (post-traumatic stress disorder) Recurrent major depressive disorder, remission status unspecified (HCC) Procedures CONSULT TO PSYCHIATRY OFFICE/OUTPATIENT [facility] 60 MINUTES Desire Lanier, COVER REMOVER.SUPERVISOR FRUIT GRADING [address] [place] [address] Ana Bach, COVER REMOVER.SUPERVISOR FR[employer] GRADING [address] [place] [address] Referral ID Status Reason Start Date Expiration Date Visits Requested Visits Authorized [id number] Pending Review PCP Requested Referral 08/24/2023 08/23/2024 1 1 Chief Complaint and Reason for Visit Chief Complaint CHEST PAIN Chief Complaint CHEST PAIN headache NAUSEA AND VOMITING Chief Complaint CHEST PAIN headache NAUSEA AND VOMITING DIZZINESS Chief Complaint NAUSEA AND VOMITING DIZZINESS STOMACH ACHE, HEADACHE, CONCERN FOR FOOD POISONING cold sx Reason for Visit Gastroenteritis Chief Complaint NAUSEA AND VOMITING DIZZINESS STOMACH ACHE, HEADACHE, CONCERN FOR FOOD POISONING cold sx right ankle pain Reason for Visit Gastroenteritis Chief Complaint STOMACH ACHE, HEADAC HE, CONCERN FOR FOOD POISONING cold sx right ankle pain COUGH right lee Reason for Visit Gastroenteritis Chief Complaint right ankle pain COUGH right lee DIZZINESS Chief Complaint COUGH right lee DIZZINESS cough Chief Complaint DIZZINESS cough FALL Chief Complaint Admit Date GNERAL ILLNESS April 28, 2024 12:36pm n/v/d May 12, 2024 1:5 4am Chief Complaint Admit Date GNERAL ILLNESS April 28, 2024 12:36pm n/v/d May 12, 2024 1:5 4am flank pain May 30, 2024 7:16 pm Reason for Visit Admit Date Calculus of proximal right ureter May 30, 2024 7:16pm Chief Complaint Admit Date GNERAL ILLNESS April 28, 2024 12:36pm n/v/d May 12, 2024 1:5 4am KIDNEY STONE May 31, 2024 11:4 1am Reason for Visit Admit Date Calculus of proximal right ureter May 31, 2024 11:41am Leukocytosis May 31, 2024 11:4 1am Chief Complaint Admit Date n/v/d May 12, 2024 1:5 4am KIDNEY STONE May 30, 2024 8:52 pm PREOP May 30, 2024 11:3 0pm abd pain August 29, 2024 2:01p m Reason for Visit Admit Date Calculus of proximal right ureter May 30, 2024 8:52pm Leukocytosis May 30, 2024 8:52 pm Additional Source Comments Reason for Visit (unrecogniz ed section and content) Status Reason Specialty Diagnoses / Procedures Referre d By Contact Referred To Contact Diagnoses weakness,CP Reason Comments Nausea Reason Comments Anxiety Reason [...] and lee swell ing going on awhile Reason Comments Dizziness Reason Comments Pain Swelling New Reason Comments Follow Up Pain Swelling Reason Comments Appointment Reason Comments Results Orders Reason Comments Nausea & Vomiting Nausea, vomiting and diarrhea x 1 day Reason Comments Establish Care leg pain Right leg spasms at night, feels like stabbing pain, and will swell up Reason Comments Derm Problem left buttock area le yennifer x 4-5 days, diarrhea, vomiting and bilateral ear pain x this am Reason Comments Vaginal Problem Reason Comments Patient Question Reason Comments Sinus Problem cough and vomiting x 1 day Reason Comments Endometrial Biopsy Specialty Diagnoses / Procedures Referred By Joshua albarado Referred To Contact [facility] Diagnoses Abnormal uterine bleeding (AUB) Iron deficiency anemia due to chronic blood loss Procedures ENDOMETRIAL BIOPSY ENDOMETRIAL BX W/WO ENDOCERVIX BX W/O DILAT SPX Suze Pleitez APRN.CNM [address] [place] [address] [facility] [address] [place] [address] Referral ID Status Reason Start Date Expiration Date V isits Requested Visits Authorized [id number] Closed Auto-Generate d Referral 10/20/2023 10/19/2024 1 1 Reason Comments Forms Reason Comments Proble Visit Surgery Consultation Reason Comments Lab Orders Reason Onset Date Comments ED Outreach 12/02/2023 [facility] Reason Onset Date Comments Transition Of Care 12/06/2023 Pt d/c from [facility] on 12/03/2023. Pt was admitted on 12/02/2023 for Fibroid uterine, Chronic blood loss, anemia, Abn vaginal bleeding. Reason Comments Post Op Pain Reason Comments Sinus Infection sinus pressure x 1 d ay Reason Comments Patient Update Reason Comments Patient Question Would like another f orm filled out for electric services Reason Comments Post-Op Visit Reason Comments Blood management Reason Comments Hematology Reason Comments Non-Chemotherapy Treatment Specialty Diagnoses / Procedures Referred By Contac t Referred To Contact Diagnoses Poor iron absorption Iron deficiency anemia due to chronic blood loss Procedures IRON SUCROSE INJECTION PER 1 MG Emily Plunkett MD [address] [place] [place] [address] [facility] [address] [place] [address] Referral ID Status Reason Start Date Expiration Date V isits Requested Visits Authorized [id number] Authorized 12/27/2023 02/29/2024 99 99 Reason Comments Refill Request Reason Comments Fall R hip and leg pain x last night Reason Onset Date Comments Refill Request 04/10/2024 Reason Comments Head Congestion Bilateral ear pain, ARANDA, ST, runny nose x4 days Reason Onset Date Comments ED OUTREACH 05/04/2024 ED [email or web address] Reason Onset Date Comments ED Follow-up 04/28/2024 [facility] 2024 Reason Onset Date Comments ED Follow-up 05/12/2024 [facility] 2024 Reason Onset Date Comments Transition Of Care 05/30/2024 Discharge [facility] 05/31/2024. Pt was admitted 05/30-05/31/2024 Reason Onset Date Comments Refill Request 07/13/2024 Reason Comments Follow Up Allergies Allergies have been bad lately and maybe causing wheezing at night time Reason Onset Date Comments Results 08/02/2024 Reason Comments Reminder Call Isadora Anisha GUERRERO Roberts - 12/06/2018 12:51 AM EDT H&P Notes (unrecognized sect ion and content) [facility] Obs History and Physical Note 12/06/18 Lakeisha Topete 1970 [id number] Assessment/Plan: Lakeisha Topete is a 48 y.o. female with a history of chronic bronchitis, depression, PTSD, HLD, GERD who presented from [facility] to [facility] Observation 12/06/2018 with two days of right sided weakness, numbness, and tingling and intermittent chest tightness. [facility] CT Head without acute abnormality, CXR without acute abnormality, EKG ST (HR 104) with TWI III, aVF, V4-6, Troponin <15. Admitted to [facility] Observation Unit for further evaluation. 1. Right [...] 01/2014 without evidence of ischemia, no prior SD, EF 69%. Admission HEART Score 4. EKG 12/05/18 as described. Troponin x2 <15 on 12/05/18. Continuous cardiac monitoring. Consider stress test outpatient or ECHO inpatient if acute CVA. Encouraged outpatient sleep study. 3. Bilateral lower extremity swelling: of unclear duration, R>L. BLEVD, ESTHELA wagner ordered. 4. Prediabetes: A1c 6.1 on 09/22/18. [...] extremity weakness, numbness/tingling History of Present Illness: Lakeisha Topete is a 48 y.o. female with a history of chronic bronchitis, depression, PTSD, HLD, GERD who presented from [facility] to [facility] Observation 12/06/2018 with two days of right sided weakness, numbness, and tingling and intermittent chest tightness. [facility] CT Head without acute abnormality, CXR without acute abnormality, EKG ST (HR 104) with TWI III, aVF, V4-6, Troponin <15. Admitted to [facility] Observation Unit for further evaluation. Presented with [...] file Gets together: Not on file Attends anabaptist service: Not on file Active member of [...] cancer Sister Heart disease Brother Home Medications: Lakeisha Topete Home Medication Instructions Prior to Surgery KELVIN:[id number] Printed on:12/06/18 0325 Medication Information Take last [...] results found for: INR Associated attestation - Radha Wilkins MD - 12/06/2018 3:33 AM EDT Patient seen and examined independently. Labs, imaging reviewed independently. Discussed case with JOHN Eubanks. Agree with plan as below. Neurology exam [...] Date: 12/06/2018 Time: 10:17 AM Patient Name: Lakiesha J Topete Date of : 1970 Sex: Female CP [...] secti on and content) Patient transported to [place] by Medic: [employer] [facility]. Receiving unit notified of patient's arrival. Patient's vital signs BP 118/60, HR 88, RR 20, Pulse Ox 95 on room air . Patient has a chief complaint of CP, weakness. Patient Does have patent IV access. Patient was on laboratory monitor prior to arrival. Patient transported to room [address] [place] [address] in stable condition. documented in this encounter [...] ized section and content) DATE CREATED AUTHOR 02/25/2019 [facility] DATE CREATED AUTHOR AUTHOR'S ORGANIZ ATION 08/15/2021 [facility] DATE CREATED AUTHOR AUTHOR'S ORGANIZ ATION [facility]20[facility] [place] [facility] DATE CREATED AUTHOR AUTHOR'S ORGANIZ ATION 02/14/2023 [facility] DATE CREATED AUTHOR AUTHOR'S ORGANIZ ATION 07/30/2024 [facility] DATE CREATED AUTHOR AUTHOR'S ORGANIZ ATION 08/04/2024 [facility] DATE CREATED AUTHOR AUTHOR'S ORGANIZ ATION 08/10/2024 [facility] DATE CREATED AUTHOR AUTHOR'S ORGANIZ ATION 08/20/2024 [facility] Care Teams (unrecognized sec tion and content) Turbine Technician Relationship Specialty Start Date End Date Brunilda Brown DO [address] [place] [address] PCP - General Internal Medicine 10/13/20 Brunilda Brown DO [address] [place] [address] Internal Medicine 08/03/20 Team Status: Active Member Role Status Dates Dr. Morelia Kilgore III, MD Family Provider Active No Primary Care Physician Primary Care Provider Active Team Status: Inactive Member Role Status Dates No Primary Care Physician Primary Care Provider Active Dr. Rob Perdomo DO Emergency Provider Active Team Status: Inactive Member Role Status Dates No Primary Care Physician Primary Care Provider Active Dr. Rob Perdomo DO Attending Provider, Emergency P shahriar Active Team Status: Inactive Member Role Status Dates No Primary Care Physician Primary Care Provider Active Dr. Jaden Almeida MD Emergency Provider Active Team Status: Active Member Role Status Dates Dr. Morelia Kilgore III, MD Family Provider Active [facility] Primary Care Provider A ctive Team Status: Inactive Member Role Status Dates No Primary Care Physician Primary Care Provider Active Dr. Jaden Almeida MD Attending Provider, Emergency Pro vider Active Team Status: Inactive Member Role Status Dates Dr. Luis Phillips DO Emergency Provider Active [facility] Primary Care Provider A ctive Team Status: Inactive Member Role Status Dates [facility] Primary Care Provider, Referring Provider Active Angel SHAHID, PA Attending Provider Active Team Status: Inactive Member Role Status Dates [facility] Primary Care Provider A ctive Dr. Rob Perdomo DO Emergency Provider Active Team Status: Inactive Member Role Status Dates Dr. Luis Phillips DO Attending Provider, Emergency P rovider Active [facility] Primary Care Provider A ctive Team Status: Inactive Member Role Status Dates [facility] Primary Care Provider A ctive Dr. Rob Perdomo , DO Attending Provider, Emergency P rovider Active Team Status: Inactive Member Role Status Dates [facility] Primary Care Provider A ctive Dr. Radha Barreto DO Emergency Provider Active Team Status: Inactive Member Role Status Dates [facility] Primary Care Provider A ctive Dr. Radha Barreto DO Attending Provider, Emergency P rovider Active Team Status: Inactive Member Role Status Dates [facility] Primary Care Provider A ctive Dr. Larry Mei , Attending Provider, Emergency Provider Active Team Status: Inactive Member Role Status Dates [facility] Primary Care Provider A ctive Dr. Gabriel Whyte DO Emergency Provider Active Turbine Technician Relationship Specialty Start Date End Date [facility], [facility] [address] [place] [address] PCP - General 04/07/23 Suze Bower, JOHN [address] [place] [address] Referring Family Medicine 04/04/23 Team Status: Active Member Role Status Dates [facility] Primary Care Provider A ctive Dr. Rob Padgett MD Attending Provider Active Dr. Gabriel Whyte DO Referring Provider Active Team Status: Inactive Member Role Status Dates [facility] Primary Care Provider A ctive Dr. Gabriel Whyte DO Attending Provider, Emergency Pro vider Active Team Status: Inactive Member Role Status Dates [facility] Primary Care Provider A ctive Dr. Ronald Fierro MD Emergency Provider Active Turbine Technician Relationship Specialty Start Date End Date Clinic, [place] [id number] [place] [address] PCP - General 04/07/23 Suze Bower NP [address] [facility] [place] [address] Referring Family Medicine 04/04/23 Turbine Technician Relationship Specialty Start Date End Date Clinic, [address] [place] [address] PCP - General 04/07/23 Suze Bower NP [address] [facility] [place] [address] Referring Family Medicine 04/04/23 Team Status: Inactive Member Role Status [facility] Primary Care Provider A ctive Dr. Ronald Fierro MD Attending Provider, Emergency Provi alfie Active Turbine Technician Relationship Specialty Start Date End Date Clinic, [address] [address] PCP - General 04/07/23 Suze Bower NP [address] [facility] [place] [address] Referring Family Medicine 04/04/23 Turbine Technician Relationship Specialty Start Date End Date Clinic, [address] [place] [address] PCP - General 04/07/23 Suze Bower NP [address] [place] [address] Referring Family Medicine 04/04/23 Team Status: Inactive Member Role Status Dates Amari Ashley MD Emergency Provider Active No Primary Care Physician Primary Care Provider Active Turbine Technician Relationship Specialty Start Date End Date Desire Lanier, COVER REMOVER.SUPERVISOR FRUIT GRADING [facility] [place] [address] PCP - General Family Medicine 08/24/23 Suze Bower NP [address] [place] [address] Referring Family Medicine 04/04/23 Turbine Technician Relationship Specialty Start Date End Date Desire Lanier, COVER REMOVER.SUPERVISOR FRUIT GRADING [address] [place], [place] [id number] PCP - General Family Medicine 08/24/23 Suze Bower NP [address] [place] [address] Referring Family Medicine 04/04/23 Turbine Technician Relationship Specialty Start Date End Date Desire Lanier, COVER REMOVER.SUPERVISOR FRUIT GRADING [address] [place], [place] [id number] PCP - General Family Medicine 08/24/23 Suze Bower NP [address] [place] [address] Referring Family Medicine 04/04/23 Turbine Technician Relationship Specialty Start Date End Date Desire Lanier, COVER REMOVER.SUPERVISOR FRUIT GRADING [address] [place] [place], [place] [id number] PCP - General Family Medicine 08/24/23 Suze Bower NP [address] [place] [address] Referring Family Medicine 04/04/23 Turbine Technician Relationship Specialty Start Date End Date Desire Lanier, COVER REMOVER.SUPERVISOR FRUIT GRADING [address] [place] [place], [place] [id number] PCP - General Family Medicine 08/24/23 Suze Bower NP [address] [place] [address] Referring Family Medicine 04/04/23 Turbine Technician Relationship Specialty Start Date End Date Desire Lanier, COVER REMOVER.SUPERVISOR FRUIT GRADING [address] [place], [place] [id number] PCP - General Family Medicine 08/24/23 Suze Bower, JOHN [address] [place] [address] Referring Family Medicine 04/04/23 Turbine Technician Relationship Specialty Start Date End Date Desire Lanier, COVER REMOVER.SUPERVISOR FRUIT GRADING [address] [place], [place] [id number] PCP - General Family Medicine 08/24/23 Suze Bower NP [address] [place] [address] Referring Family Medicine 04/04/23 Turbine Technician Relationship Specialty Start Date End Date Desire Lanier, COVER REMOVER.SUPERVISOR FRUIT GRADING [address] [place], [place] [id number] PCP - General Family Medicine 08/24/23 Suze Bower NP [address] [place] [address] Referring Family Medicine 04/04/23 Turbine Technician Relationship Specialty Start Date End Date Desire Lanier, COVER REMOVER.SUPERVISOR FRUIT GRADING [address] [facility] [place], [place] [id number] PCP - General Family Medicine 08/24/23 Suze Bower NP [address] [place] [address] Referring Family Medicine 04/04/23 Turbine Technician Relationship Specialty Start Date End Date Queden, Desire A, COVER REMOVER.SUPERVISOR FRUIT GRADING [address] [facility] [place], [place] [id number] PCP - General Family Medicine 08/24/23 Suze Bower NP [address] [place] [address] Referring Family Medicine 04/04/23 Turbine Technician Relationship Specialty Start Date End Date Desire Lanier, COVER REMOVER.SUPERVISOR FRUIT GRADING [address] [facility] [place] [address] PCP - General Family Medicine 08/24/23 Suze Bower NP [address] [place], [place] [id number] Referring Family Medicine 04/04/23 Turbine Technician Relationship Specialty Start Date End Date Desire Lanier, COVER REMOVER.SUPERVISOR FRUIT GRADING [address] [facility] [address] PCP - General Family Medicine 08/24/23 Suze Bower NP [address] [place] [address] Referring Family Medicine 04/04/23 Turbine Technician Relationship Specialty Start Date End Date Desire Lanier, COVER REMOVER.SUPERVISOR FRUIT GRADING [address] [place] [address] PCP - General Family Medicine 08/24/23 Suze Bower NP [address] [facility] [place] [address] Referring Family Medicine 04/04/23 Turbine Technician Relationship Specialty Start Date End Date Desire Lanier, COVER REMOVER.SUPERVISOR FRUIT GRADING [address] [place] [address] PCP - General Family Medicine 08/24/23 Suze Bower NP [address] [place] [address] Referring Family Medicine 04/04/23 Turbine Technician Relationship Specialty Start Date End Date Desire aLnier COVER REMOVER.SUPERVISOR FRUIT GRADING [address] [place] [address] PCP - General Family Medicine 08/24/23 Suze Bower NP [address] [place] [address] Referring Family Medicine 04/04/23 Turbine Technician Relationship Specialty Start Date End Date Desire Lanier, COVER REMOVER.SUPERVISOR FRUIT GRADING [address] [facility] [address] PCP - General Family Medicine 08/24/23 Suze Bower NP [address] [place] [address] Referring Family Medicine 04/04/23 Turbine Technician Relationship Specialty Start Date End Date Desire Lanier COVER REMOVER.SUPERVISOR FRUIT GRADING [address] [facility] [address] PCP - General Family Medicine 08/24/23 Suze Bower NP [address] [place] [address] Referring Family Medicine 04/04/23 Turbine Technician Relationship Specialty Start Date End Date Desire Lanier COVER REMOVER.SUPERVISOR FRUIT GRADING [address] [place] [address] PCP - General Family Medicine 08/24/23 Suze Bower NP [address] [place] [address] Referring Family Medicine 04/04/23 Turbine Technician Relationship Specialty Start Date End Date Desire Lanier APRN.SUPERVISOR FRUIT GRADING [address] [place] [address] PCP - General Family Medicine 08/24/23 Suze Bower NP [address] [place] [address] Referring Family Medicine 04/04/23 Turbine Technician Relationship Specialty Start Date End Date Desire Lanier APRN.SUPERVISOR FRUIT GRADING [address] [place] [address] PCP - General Family Medicine 08/24/23 Suze Bower NP [address] [place] [address] Referring Family Medicine 04/04/23 Team Status: Active Member Role Status Dates Desire Lanier SPEECH COACH, SPEECH COACH-C Primary Care Provider Active Team Status: Inactive Member Role Status Dates Desire Lanier SPEECH COACH, SPEECH COACH-C Primary Care Provider Active Start: April 28, 2024 End: April 28, 2024 Dr. Radha Barreto , Attending Provider Active Start: April 28, 2024 End: April 28, 2024 Dr. Radha Barreto DO Emergency Provider Active Start: April 28, 2024 End: April 28, 2024 Team Status: Inactive Member Role Status Dates Desire Lanier SPEECH COACH, SPEECH COACH-C Primary Care Provider Active Start: May 12, 2024 End: May 12, 2024 Dr. Micky Keith , Emergency Provider Active Start: May 12, 2024 End: May 12, 2024 Team Status: Inactive Member Role Status Dates Desire Lanier SPEECH COACH, SPEECH COACH-C Primary Care Provider Active Start: May 12, 2024 End: May 12, 2024 Dr. Micky Keith , DO Attending Provider Active Start: May 12, 2024 End: May 12, 2024 Dr. Micky Keith , DO Emergency Provider Active Start: May 12, 2024 End: May 12, 2024 Team Status: Active Member Role Status Dates Desire Lanier SPEECH COACH, SPEECH COACH-C Primary Care Provider Active Start: May 30, 2024 Dr. Rob Perdomo , Emergency Provider Active Start: May 30, 2024 Dr. Linwood Vega MD Admit Provider Active Start: May 30, 2024 Dr. Linwood Vega MD Attending Provider Active Start: May 30, 2024 Team Status: Inactive Member Role Status Dates Desire Lanier SPEECH COACH, SPEECH COACH-C Primary Care Provider Active Start: May 31, 2024 End: May 31, 2024 Dr. Rob Perdomo , Emergency Provider Active Start: May 31, 2024 End: May 31, 2024 Dr. Linwood Vega MD Admit Provider Active Start: May 31, 2024 End: May 31, 2024 Dr. Linwood Vega MD Attending Provider Active Start: May 31, 2024 End: May 31, 2024 Turbine Technician Relationship Specialty Start Date End Date Desire Lanier APRN.SUPERVISOR FRUIT GRADING [address] [place] [address] PCP - General Family Medicine 08/24/23 Suze Bower NP [address] [place] [address] Referring Family Medicine 04/04/23 Turbine Technician Relationship Specialty Start Date End Date Desire Lanier APRN.SUPERVISOR FRUIT GRADING [address] [place] [address] PCP - General Family Medicine 08/24/23 Suze Bower NP [address] [place] [address] Referring Family Medicine 04/04/23 Turbine Technician Relationship Specialty Start Date End Date Desire Lanier APRN.SUPERVISOR FRUIT GRADING [address] [place] [address] PCP - General Family Medicine 08/24/23 Suze Bower NP [address] [place] [address] Referring Family Medicine 04/04/23 Turbine Technician Relationship Specialty Start Date End Date Desire Lanier APRN.SUPERVISOR FRUIT GRADING [address] [place] [address] PCP - General Family Medicine 08/24/23 Suze Bower NP [address] [place] [address] Referring Family Medicine 04/04/23 Team Status: Active Member Role/Relationship Status Dates Desire Lanier SPEECH COACH, SPEECH COACH-C Primary Care Provider Active Team Status: Inactive Member Role/Relationship Status Dates Desire Lanier SPEECH COACH, SPEECH COACH-C Primary Care Provider Active Start: May 12, 2024 End: May 12, 2024 Dr. Micky Keith , Attending Provider Active Start: May 12, 2024 End: May 12, 2024 Dr. Micky Keith , DO Emergency Provider Active Start: May 12, 2024 End: May 12, 2024 Team Status: Inactive Member Role/Relationship Status Dates Desire Lanier SPEECH COACH, SPEECH COACH-C Primary Care Provider Active Start: May 30, 2024 End: May 31, 2024 Dr. Rob Perdomo , Emergency Provider Active Start: May 30, 2024 End: May 31, 2024 Dr. Linwood Vega MD Admit Provider Active Start: May 30, 2024 End: May 31, 2024 Dr. Linwood Vega MD Attending Provider Active Start: May 30, 2024 End: May 31, 2024 Team Status: Active Member Role/Relationship Status Dates Desire Lanier SPEECH COACH, SPEECH COACH-C Primary Care Provider Active Start: May 30, 2024 End: May 30, 2024 Dr. Fiordaliza Lomax MD Attending Provider Active Start: May 30, 2024 End: May 30, 2024 Dr. Marcos Medina MD Referring Provider Active Start: May 30, 2024 End: May 30, 2024 Team Status: Inactive Member Role/Relationship Status Dates Desire Lanier SPEECH COACH, SPEECH COACH-C Primary Care Provider Active Start: August 29, 2024 End: August 29, 2024 Dr. Jose Gil DO Emergency Provider Activ e Start: August 29, 2024 End: August 29, 2024 Goals (unrecognized section and content) Goals may be documented in a n alternate section Source Comments (unrecognize d section and content) In the event this informatio n is protected by the Federal Confidentiality of Alcohol and Drug Abuse Patient Records regulations: The Federal rules restrict any use of the information to criminally investigate or prosecute any alcohol or drug abuse patient.[facility] the event this information is protected by the Federal Confidentiality of Alcohol and Drug Abuse Patient Records regulations: The Federal rules restrict any use of the information to criminally investigate or prosecute any alcohol or drug abuse patient.[facility]In the event this information is protected by the Federal Confidentiality of Alcohol and Drug Abuse Patient Records regulations: The Federal rules restrict any use of the information to criminally investigate or prosecute any alcohol or drug abuse patient.[facility]In the event this information is protected by the Federal Confidentiality of Alcohol and Drug Abuse Patient Records regulations: The Federal rules restrict any use of the information to criminally investigate or prosecute any alcohol or drug abuse patient.[facility] HospitalIn the event this information is protected by the Federal Confidentiality of Alcohol and Drug Abuse Patient Records regulations: The Federal rules restrict any use of the information to criminally investigate or prosecute any alcohol or drug abuse patient.[facility] HospitalIn the event this information is protected by the Federal Confidentiality of Alcohol and Drug Abuse Patient Records regulations: The Federal rules restrict any use of the information to criminally investigate or prosecute any alcohol or drug abuse patient.[facility] HospitalIn the event this information is protected by the Federal Confidentiality of Alcohol and Drug Abuse Patient Records regulations: The Federal rules restrict any use of the information to criminally investigate or prosecute any alcohol or drug abuse patient.[facility] HospitalIn the event this information is protected by the Federal Confidentiality of Alcohol and Drug Abuse Patient Records regulations: The Federal rules restrict any use of the information to criminally investigate or prosecute any alcohol or drug abuse patient.[facility] HospitalIn the event this information is protected by the Federal Confidentiality of Alcohol and Drug Abuse Patient Records regulations: The Federal rules restrict any use of the information to criminally investigate or prosecute any alcohol or drug abuse patient.[facility] HospitalIn the event this information is protected by the Federal Confidentiality of Alcohol and Drug Abuse Patient Records regulations: The Federal rules restrict any use of the information to criminally investigate or prosecute any alcohol or drug abuse patient.[facility] HospitalIn the event this information is protected by the Federal Confidentiality of Alcohol and Drug Abuse Patient Records regulations: The Federal rules restrict any use of the information to criminally investigate or prosecute any alcohol or drug abuse patient.[facility] HospitalIn the event this information is protected by the Federal Confidentiality of Alcohol and Drug Abuse Patient Records regulations: The Federal rules restrict any use of the information to criminally investigate or prosecute any alcohol or drug abuse patient.[facility] HospitalIn the event this information is protected by the Federal Confidentiality of Alcohol and Drug Abuse Patient Records regulations: The Federal rules restrict any use of the information to criminally investigate or prosecute any alcohol or drug abuse patient.[facility] HospitalIn the event this information is protected by the Federal Confidentiality of Alcohol and Drug Abuse Patient Records regulations: The Federal rules restrict any use of the information to criminally investigate or prosecute any alcohol or drug abuse patient.[facility] HospitalIn the event this information is protected by the Federal Confidentiality of Alcohol and Drug Abuse Patient Records regulations: The Federal rules restrict any use of the information to criminally investigate or prosecute any alcohol or drug abuse patient.[facility] HospitalIn the event this information is protected by the Federal Confidentiality of Alcohol and Drug Abuse Patient Records regulations: The Federal rules restrict any use of the information to criminally investigate or prosecute any alcohol or drug abuse patient.[facility] HospitalIn the event this information is protected by the Federal Confidentiality of Alcohol and Drug Abuse Patient Records regulations: The Federal rules restrict any use of the information to criminally investigate or prosecute any alcohol or drug abuse patient.[facility] HospitalIn the event this information is protected by the Federal Confidentiality of Alcohol and Drug Abuse Patient Records regulations: The Federal rules restrict any use of the information to criminally investigate or prosecute any alcohol or drug abuse patient.[facility] HospitalIn the event this information is protected by the Federal Confidentiality of Alcohol and Drug Abuse Patient Records regulations: The Federal rules restrict any use of the information to criminally investigate or prosecute any alcohol or drug abuse patient.[facility] HospitalIn the event this information is protected by the Federal Confidentiality of Alcohol and Drug Abuse Patient Records regulations: The Federal rules restrict any use of the information to criminally investigate or prosecute any alcohol or drug abuse patient.[facility] HospitalIn the event this information is protected by the Federal Confidentiality of Alcohol and Drug Abuse Patient Records regulations: The Federal rules restrict any use of the information to criminally investigate or prosecute any alcohol or drug abuse patient.[facility] HospitalIn the event this information is protected by the Federal Confidentiality of Alcohol and Drug Abuse Patient Records regulations: The Federal rules restrict any use of the information to criminally investigate or prosecute any alcohol or drug abuse patient.[facility] HospitalIn the event this information is protected by the Federal Confidentiality of Alcohol and Drug Abuse Patient Records regulations: The Federal rules restrict any use of the information to criminally investigate or prosecute any alcohol or drug abuse patient.[facility] HospitalIn the event this information is protected by the Federal Confidentiality of Alcohol and Drug Abuse Patient Records regulations: The Federal rules restrict any use of the information to criminally investigate or prosecute any alcohol or drug abuse patient.[facility] HospitalIn the event this information is protected by the Federal Confidentiality of Alcohol and Drug Abuse Patient Records regulations: The Federal rules restrict any use of the information to criminally investigate or prosecute any alcohol or drug abuse patient.[facility] HospitalIn the event this information is protected by the Federal Confidentiality of Alcohol and Drug Abuse Patient Records regulations: The Federal rules restrict any use of the information to criminally investigate or prosecute any alcohol or drug abuse patient.[facility] HospitalIn the event this information is protected by the Federal Confidentiality of Alcohol and Drug Abuse Patient Records regulations: The Federal rules restrict any use of the information to criminally investigate or prosecute any alcohol or drug abuse patient.[facility] HospitalIn the event this information is protected by the Federal Confidentiality of Alcohol and Drug Abuse Patient Records regulations: The Federal rules restrict any use of the information to criminally investigate or prosecute any alcohol or drug abuse patient.[facility] HospitalIn the event this information is protected by the Federal Confidentiality of Alcohol and Drug Abuse Patient Records regulations: The Federal rules restrict any use of the information to criminally investigate or prosecute any alcohol or drug abuse patient.[facility] HospitalIn the event this information is protected by the Federal Confidentiality of Alcohol and Drug Abuse Patient Records regulations: The Federal rules restrict any use of the information to criminally investigate or prosecute any alcohol or drug abuse patient.[facility] HospitalIn the event this information is protected by the Federal Confidentiality of Alcohol and Drug Abuse Patient Records regulations: The Federal rules restrict any use of the information to criminally investigate or prosecute any alcohol or drug abuse patient.[facility] HospitalIn the event this information is protected by the Federal Confidentiality of Alcohol and Drug Abuse Patient Records regulations: The Federal rules restrict any use of the information to criminally investigate or prosecute any alcohol or drug abuse patient.[facility] HospitalIn the event this information is protected by the Federal Confidentiality of Alcohol and Drug Abuse Patient Records regulations: The Federal rules restrict any use of the information to criminally investigate or prosecute any alcohol or drug abuse patient.[facility] HospitalIn the event this information is protected by the Federal Confidentiality of Alcohol and Drug Abuse Patient Records regulations: The Federal rules restrict any use of the information to criminally investigate or prosecute any alcohol or drug abuse patient.[facility] HospitalIn the event this information is protected by the Federal Confidentiality of Alcohol and Drug Abuse Patient Records regulations: The Federal rules restrict any use of the information to criminally investigate or prosecute any alcohol or drug abuse patient.[facility] HospitalIn the event this information is protected by the Federal Confidentiality of Alcohol and Drug Abuse Patient Records regulations: The Federal rules restrict any use of the information to criminally investigate or prosecute any alcohol or drug abuse patient.[facility] HospitalIn the event this information is protected by the Federal Confidentiality of Alcohol and Drug Abuse Patient Records regulations: The Federal rules restrict any use of the information to criminally investigate or prosecute any alcohol or drug abuse patient.[facility] HospitalIn the event this information is protected by the Federal Confidentiality of Alcohol and Drug Abuse Patient Records regulations: The Federal rules restrict any use of the information to criminally investigate or prosecute any alcohol or drug abuse patient.[facility] HospitalIn the event this information is protected by the Federal Confidentiality of Alcohol and Drug Abuse Patient Records regulations: The Federal rules restrict any use of the information to criminally investigate or prosecute any alcohol or drug abuse patient.[facility] HospitalIn the event this information is protected by the Federal Confidentiality of Alcohol and Drug Abuse Patient Records regulations: The Federal rules restrict any use of the information to criminally investigate or prosecute any alcohol or drug abuse patient.[facility] HospitalIn the event this information is protected by the Federal Confidentiality of Alcohol and Drug Abuse Patient Records regulations: The Federal rules restrict any use of the information to criminally investigate or prosecute any alcohol or drug abuse patient.[facility] HospitalIn the event this information is protected by the Federal Confidentiality of Alcohol and Drug Abuse Patient Records regulations: The Federal rules restrict any use of the information to criminally investigate or prosecute any alcohol or drug abuse patient.[facility] HospitalIn the event this information is protected by the Federal Confidentiality of Alcohol and Drug Abuse Patient Records regulations: The Federal rules restrict any use of the information to criminally investigate or prosecute any alcohol or drug abuse patient.[facility] HospitalIn the event this information is protected by the Federal Confidentiality of Alcohol and Drug Abuse Patient Records regulations: The Federal rules restrict any use of the information to criminally investigate or prosecute any alcohol or drug abuse patient.[facility] HospitalIn the event this information is protected by the Federal Confidentiality of Alcohol and Drug Abuse Patient Records regulations: The Federal rules restrict any use of the information to criminally investigate or prosecute any alcohol or drug abuse patient.[facility] HospitalIn the event this information is protected by the Federal Confidentiality of Alcohol and Drug Abuse Patient Records regulations: The Federal rules restrict any use of the information to criminally investigate or prosecute any alcohol or drug abuse patient.[facility] HospitalIn the event this information is protected by the Federal Confidentiality of Alcohol and Drug Abuse Patient Records regulations: The Federal rules restrict any use of the information to criminally investigate or prosecute any alcohol or drug abuse patient.[facility] HospitalIn the event this information is protected by the Federal Confidentiality of Alcohol and Drug Abuse Patient Records regulations: The Federal rules restrict any use of the information to criminally investigate or prosecute any alcohol or drug abuse patient.[facility] HospitalIn the event this information is protected by the Federal Confidentiality of Alcohol and Drug Abuse Patient Records regulations: The Federal rules restrict any use of the information to criminally investigate or prosecute any alcohol or drug abuse patient.[facility] HospitalIn the event this information is protected by the Federal Confidentiality of Alcohol and Drug Abuse Patient Records regulations: The Federal rules restrict any use of the information to criminally investigate or prosecute any alcohol or drug abuse patient.[facility] HospitalIn the event this information is protected by the Federal Confidentiality of Alcohol and Drug Abuse Patient Records regulations: The Federal rules restrict any use of the information to criminally investigate or prosecute any alcohol or drug abuse patient.[facility] HospitalIn the event this information is protected by the Federal Confidentiality of Alcohol and Drug Abuse Patient Records regulations: The Federal rules restrict any use of the information to criminally investigate or prosecute any alcohol or drug abuse patient.[facility] HospitalIn the event this information is protected by the Federal Confidentiality of Alcohol and Drug Abuse Patient Records regulations: The Federal rules restrict any use of the information to criminally investigate or prosecute any alcohol or drug abuse patient.[facility] HospitalIn the event this information is protected by the Federal Confidentiality of Alcohol and Drug Abuse Patient Records regulations: The Federal rules restrict any use of the information to criminally investigate or prosecute any alcohol or drug abuse patient.[facility] HospitalIn the event this information is protected by the Federal Confidentiality of Alcohol and Drug Abuse Patient Records regulations: The Federal rules restrict any use of the information to criminally investigate or prosecute any alcohol or drug abuse patient.[facility] HospitalIn the event this information is protected by the Federal Confidentiality of Alcohol and Drug Abuse Patient Records regulations: The Federal rules restrict any use of the information to criminally investigate or prosecute any alcohol or drug abuse patient.[facility] HospitalIn the event this information is protected by the Federal Confidentiality of Alcohol and Drug Abuse Patient Records regulations: The Federal rules restrict any use of the information to criminally investigate or prosecute any alcohol or drug abuse patient.[facility] HospitalIn the event this information is protected by the Federal Confidentiality of Alcohol and Drug Abuse Patient Records regulations: The Federal rules restrict any use of the information to criminally investigate or prosecute any alcohol or drug abuse patient.[facility] HospitalIn the event this information is protected by the Federal Confidentiality of Alcohol and Drug Abuse Patient Records regulations: The Federal rules restrict any use of the information to criminally investigate or prosecute any alcohol or drug abuse patient.[facility] the event this information is protected by the Federal Confidentiality of Alcohol and Drug Abuse Patient Records regulations: The Federal rules restrict any use of the information to criminally investigate or prosecute any alcohol or drug abuse patient.[facility] FOR RECORDS PERTAINING TO PATIENTS WHO [...] BE BASED ON THE PRIMARY CLINICAL RECORDS. [facility], [facility]. provides no warranty or guarantee of the accuracy or completeness of information in this document.
== END 2024-08-29 21:37 | disposition home or self-care (01) ==
PROVIDERS: Emergency Provider Surgery; PCP Nurse Practitioner Family; Visit Provider Surgery
DX: N39.0 Urinary tract infection, site not specified (principal); F31.9 Bipolar disorder, unspecified; E11.9 Type 2 diabetes mellitus without complications; E78.5 Hyperlipidemia, unspecified; I10 Essential (primary) hypertension; Z90.710 Acquired absence of both cervix and uterus; N13.2 Hydronephrosis with renal and ureteral calculous obstruction; R10.32 Left lower quadrant pain; R10.31 Right lower quadrant pain; Z86.73 Personal history of transient ischemic attack (TIA), and cerebral infarction without residual deficits; Z79.899 Other long term (current) drug therapy; Z79.84 Long term (current) use of oral hypoglycemic drugs; Z79.51 Long term (current) use of inhaled steroids; J45.909 Unspecified asthma, uncomplicated; Z90.49 Acquired absence of other specified parts of digestive tract; Z98.51 Tubal ligation status; F17.290 Nicotine dependence, other tobacco product, uncomplicated
CPT/HCPCS: 74176; 80048; 81001; 85025; 87077; 87086; 87088; 87186; 96361; 96365; 96366; 96375; 99282; A4216; J2405

== ENCOUNTER 2024-09-06 01:07 | Emergency (ER) | payer MEDICAID, SELFPAY ==
[2024-09-06] VITALS (7 sets, daily range): BP systolic 112–145; BP diastolic 53–74; PULSE 75–102; RESP 18–20; TEMP 36.6–36.7; O2SAT 96–99; BMI 42.5
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
--- NOTE | 2024-09-06 01:32 | CT_ITS ---
PROCEDURE: ABDOMEN/PELVIS WITHOUT CONT 09/06/2024 REASON FOR EXAM: KIDNEY STONE TECHNIQUE: ABDOMEN/PELVIS WITHOUT CONT Noncontrast technique limits evaluation of the abdominal and pelvic viscera. Coronal and Sagittal reconstruction series were provided. One or more dose reduction techniques were used (e.g., Automated exposure control, adjustment of the mA and/or kV according to patient size, use of iterative reconstruction technique). RADIATION DOSE SUMMARY: CTDlvol: 16.87 mGy DLP: 842.83 mGycm COMPARISON: 08/29/2024. FINDINGS: The visualized lung bases are unremarkable. The coronary arteries are not calcified. Normal unenhanced liver. The gallbladder is not visualized and is probably surgically absent. Normal Extrahepatic biliary system. Normal unenhanced spleen. Normal pancreas. Normal bilateral adrenal glands. Normal size of the right kidney. There is no right renal mass. 1.1 cm stone is again seen in the distal right ureter approximately 1 cm from the vesicoureteral junction with mild degree of right- sided hydronephrosis.. Normal size of the left kidney. There is no left renal mass. There are no left renal calculi. There is no left hydronephrosis. Normal visualized left ureter. Normal visualized stomach. Normal small intestine. Normal colon. The appendix is visualized and appears normal. There is no demonstrated peritoneal fluid. Normal abdominal aorta. Normal inferior vena cava. Normal retroperitoneum. Normal urinary bladder. There is no pelvic mass lesion or lymphadenopathy. There is no pelvic fluid. Normal abdominal wall. Normal osseous structures. CT/Abdomen/Pelvis without Cont IMPRESSION: Distal right ureterolithiasis with mild hydronephrosis, unchanged since the caitlin or exam. Nonvisualization of the gallbladder which is probably surgically absent. Reading Location: [place] [address]
[2024-09-06] MEDS: 0.9% Normal Saline (1000mL) 1,000 ML 999 ML IV (01:48)
[2024-09-06 01:53] LABS: Red Blood Cells-Urine 0 SEEN /hpf (0-5)
[2024-09-06 01:55] LABS: Hematocrit 31.2 % (37-47); Hemoglobin 9.3 g/dL (12.0-15.0); Immature Granulocytes Count 0.120 X10^3/uL (0.0-0.0); Mean Corp Hgb Conc 29.8 g/dL (32-36); Mean Corpuscular Volume 73.4 fL (81-99); Mean Platelet Vol. 10.1 fl (6.2-12.0); NRBC Flagged by Analyzer 0 % (0-5); Platelet Count 352 K/mm3 (150-450); RBC Distribution Width CV 16.4 % (11.6-14.6); RBC Distribution Width SD 43.0 fl (35.1-43.9); Red Blood Count 4.25 M/mm3 (4.2-5.4); White Blood Count 13.5 K/mm3 (4.4-11.0)
[2024-09-06 01:56] LABS: Glucose, Dipstick Normal (Normal); Ketone-Dipstick Negative (Negative); Leukocyte Esterase-Dipstick 500 /ul (Negative); Nitrite-Dipstick Negative (Negative); Occult Blood-Urine 10 /ul (Negative); Protein-Dipstick 30 mg/dl (Negative); Specific Gravity, Urine 1.025 (1.002-1.030); Urine Bilirubin Dipstick Negative (Negative)
[2024-09-06 02:51] LABS: Color, Urine Yellow (Yellow); Mucous, Urine 2+ /hpf (<or=2+); Squamous Epithelial Cells - UA 10-25 SEEN /hpf (5-10)
--- NOTE | 2024-09-06 03:27 | PCA ---
CALLED [facility] HAVE 21 WAITING IN THE ED FOR BEDS CALLED [facility] IN THE ER, 30 BEDS ON HOLD. CALLED [facility] FAXED THE FACE SHEET OVER
[2024-09-06 04:11] LABS: Anion Gap 13 (5-15); BUN 13 mg/dL (4-19); BUN/Creat Ratio 16.9 RATIO (10-20); Calcium,Total 8.8 mg/dL (7.6-11.0); Carbon Dioxide 22.2 mmol/L (21.0-32.0); Chloride 102 mmol/L (98-108); Estimated Creatinine Clearance 85.59 ml/min (50-250); Glucose 140 mg/dL (70-99); Potassium 3.6 mmol/L (3.3-5.1)
--- NOTE | 2024-09-06 04:53 | PCA ---
[facility] CALLED BACK AT 0450 WITH A ROOM. [id number] ETA [id number]
== END 2024-09-06 07:05 | disposition short-term general hospital (02) ==
LOC: ED 01:45
PROVIDERS: Emergency Provider Emergency Medicine; PCP Nurse Practitioner Family; Visit Provider Emergency Medicine
DX: N13.6 Pyonephrosis (principal); F31.9 Bipolar disorder, unspecified; E11.9 Type 2 diabetes mellitus without complications; R10.9 Unspecified abdominal pain; E78.5 Hyperlipidemia, unspecified; I10 Essential (primary) hypertension; F17.290 Nicotine dependence, other tobacco product, uncomplicated; J45.909 Unspecified asthma, uncomplicated; D72.829 Elevated white blood cell count, unspecified; D64.9 Anemia, unspecified
CPT/HCPCS: 74176; 80048; 81001; 85025; 87086; 87088; 96361; 96365; 96375; 99285; A4216; J0744; J2405

== ENCOUNTER 2024-10-12 11:09 | Emergency (ER) | payer MEDICAID, SELFPAY ==
[2024-10-12 11:10] VITALS: BP 189/110; PULSE 101; RESP 17; TEMP 36.3; O2SAT 99
[2024-10-12 11:15] VITALS: TEMP 36.3; BMI 41.8
--- NOTE | 2024-10-12 11:17 | CT_ITS ---
PROCEDURE: STROKE BRAIN/HEAD WITHOUT CONT 10/12/2024 REASON FOR EXAM: NEURO DEFICIT, ACUTE, STROKE SUSPECTED TECHNIQUE: STROKE BRAIN/HEAD WITHOUT CONT Coronal and Sagittal reconstruction series were provided. One or more dose reduction techniques were used (e.g., Automated exposure control, adjustment of the mA and/or kV according to patient size, use of iterative reconstruction technique. RADIATION DOSE SUMMARY: CTDlvol: 44.99 mGy DLP: 762.36 mGycm COMPARISON: None FINDINGS: Brain: Normal CSF Spaces: Normal Sinuses/Mastoids: Clear at visualized levels Bones: Unremarkable CT/STROKE Brain/Head without Cont IMPRESSION: NORMAL NONCONTRAST HEAD CT. Red Alert: Neg The critical information above was relayed directly by me by telephone to Raina Arellano on 10/12/2024 at 11:26 am with readback verification. Reading Location: [place] [address]
--- NOTE | 2024-10-12 11:17 | CT_ITS ---
PROCEDURE: STROKE CTA HEAD AND NECK W/CON 10/12/2024 REASON FOR EXAM: NEURO DEFICIT, ACUTE, STROKE SUSPECTED TECHNIQUE: STROKE CTA HEAD AND NECK W/CON Multiplanar Sagittal and Coronal images were obtained. CONTRAST: 100 cc [id number] One or more dose reduction techniques were used (e.g., Automated exposure control, adjustment of the mA and/or kV according to patient size, use of iterative reconstruction technique). RADIATION DOSE SUMMARY: DLP: 647 mGycm COMPARISON: None FINDINGS: Aortic Arch: Intact Brachiocephalic and Subclavians: Unremarkable RIGHT Carotid: Right CCA: Patent Right ICA: Patent Maximum stenosis (NASCET): 0 % Right ECA: Patent LEFT Carotid: Left CCA: Patent Left ICA: Patent Maximum stenosis (NASCET): 0 % Left ECA: Patent Vertebrals: Patent RIGHT Vertebral: Patent LEFT Vertebral: Patent Anatomy: Anatomic Aneurysm or avm: None Anterior cerebral arteries: Patent Middle cerebral arteries: Patent Basilar artery: Patent Posterior cerebral arteries: Patent Other major branches of the posterior circulation: Patent Major venous structures: Patent Other findings: Neck: Unremarkable lungs: Clear bones: There is no acute bony abnormality CT/STROKE CTA Head AND Neck W/Con IMPRESSION: CTA of the head and neck is within normal limits. Reading Location: [place]
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
[2024-10-12 11:34] LABS: Hematocrit 32.9 % (37-47); Hemoglobin 9.7 g/dL (12.0-15.0); Immature Granulocytes Count 0.120 X10^3/uL (0.0-0.0); Mean Corp Hgb Conc 29.5 g/dL (32-36); Mean Corpuscular Volume 71.2 fL (81-99); Mean Platelet Vol. 9.9 fl (6.2-12.0); NRBC Flagged by Analyzer 0 % (0-5); Platelet Count 365 K/mm3 (150-450); RBC Distribution Width CV 17.5 % (11.6-14.6); RBC Distribution Width SD 43.4 fl (35.1-43.9); Red Blood Count 4.62 M/mm3 (4.2-5.4); White Blood Count 15.4 K/mm3 (4.4-11.0)
[2024-10-12 11:35] VITALS: BP 168/88; PULSE 105; RESP 27; O2SAT 98; BMI 41.8
[2024-10-12 12:06] LABS: Prothrombin Time (Protime)PT. 14.6 SECONDS (11.7-14.9)
[2024-10-12 12:08] LABS: Anion Gap 15 (5-15); BUN 12 mg/dL (4-19); BUN/Creat Ratio 15.1 RATIO (10-20); Calcium,Total 9.0 mg/dL (7.6-11.0); Carbon Dioxide 21.4 mmol/L (21.0-32.0); Chloride 101 mmol/L (98-108); Estimated Creatinine Clearance 86.91 ml/min (50-250); Glucose 228 mg/dL (70-99); Potassium 3.4 mmol/L (3.3-5.1); Troponin T High Sensitivity < 6 ng/L (<=14)
--- NOTE | 2024-10-12 12:18 | ED.RN ---
THIS RN AND DR. ARMENTA HAD DISCUSSION WITH PT ABOUT ADMISSION. PT STATES I JUST GOT EVICTED THIS MORNING AND I HAVE TO HAVE MY STUFF MOVED OUT BY 8AM SO I CANT BE ADMITTED DR. ARMENTA AND THIS RN ADVISED PT AND EDUCATED PT ON ADMISSION FOR MRI AND PT CONTINUED TO DECLINE, REQUESTING TO AMA. PT WAS GIVEN A DOSE OF ASPIRIN BEFORE DISCHARGE AND RESOURCES TO FOLLOW UP WITH.
[2024-10-12 12:52] LABS: Partial Thromboplast Time 26.4 Seconds (24.1-36.2)
== END 2024-10-12 12:25 | disposition left against medical advice (07) ==
PROVIDERS: Emergency Provider Student in an Organized Health Care Education/Training Program; PCP Nurse Practitioner Family; Visit Provider Student in an Organized Health Care Education/Training Program
DX: I63.9 Cerebral infarction, unspecified (principal); G83.24 Monoplegia of upper limb affecting left nondominant side; E66.01 Morbid (severe) obesity due to excess calories; Z68.41 Body mass index [BMI] 40.0-44.9, adult; E11.65 Type 2 diabetes mellitus with hyperglycemia; R29.810 Facial weakness; R29.702 NIHSS score 2; D64.9 Anemia, unspecified; I10 Essential (primary) hypertension; F17.290 Nicotine dependence, other tobacco product, uncomplicated; Z79.84 Long term (current) use of oral hypoglycemic drugs; Z79.899 Other long term (current) drug therapy; Z86.73 Personal history of transient ischemic attack (TIA), and cerebral infarction without residual deficits; Z53.29 Procedure and treatment not carried out because of patient's decision for other reasons
CPT/HCPCS: 70450; 70496; 70498; 80048; 84484; 85025; 85610; 85730; 93005; 99284; Q9967; A4216

== ENCOUNTER 2024-10-24 14:39 | Emergency (ER) | payer MEDICAID, SELFPAY ==
[2024-10-24 14:39] VITALS: BP 170/98; PULSE 87; RESP 16; TEMP 36.6; O2SAT 99; BMI 40.1
[2024-10-24] MEDS: 0.9% Normal Saline (1000mL) 1,000 ML 999 ML IV (16:03)
--- NOTE | 2024-10-24 16:17 | CT_ITS ---
PROCEDURE: ABDOMEN/PELVIS W IV CONT ONLY 10/24/2024 REASON FOR EXAM: ABD PAIN TECHNIQUE: ABDOMEN/PELVIS W IV CONT ONLY Coronal and Sagittal reconstruction series were provided. CONTRAST: Isovue 370 VOLUME: 97 mL One or more dose reduction techniques were used (e.g., Automated exposure control, adjustment of the mA and/or kV according to patient size, use of iterative reconstruction technique. RADIATION DOSE SUMMARY: CTDlvol: 13+ 22 mGy DLP: 1222 mGycm FINDINGS: *Soft Tissues: Peripheral soft tissues unremarkable. *Vessels: Abdominal aorta normal in caliber. *Lymph Nodes: No suspicious lymphadenopathy. *Hepatobiliary/Spleen/Adrenals: *Gallbladder not visualized, may be surgically absent. *Spleen unremarkable. *Adrenal glands unremarkable. *Kidneys/Ureters/Bladder: *Symmetric enhancement of bilateral kidneys. *No ureteral calculi. *Urinary bladder unremarkable. *Pelvic Organs: Uterus normal in appearance. *Bowel: Normal caliber small bowel. No surrounding inflammatory changes. CT/Abdomen/Pelvis W IV Cont ONLY IMPRESSION: *No acute intra-abdominal or pelvic abnormality identified. *Gallbladder not visualized, likely surgically absent. Reading Location: [id number]
[2024-10-24 16:21] LABS: Hematocrit 36.1 % (37-47); Hemoglobin 10.7 g/dL (12.0-15.0); Immature Granulocytes Count 0.040 X10^3/uL (0.0-0.0); Mean Corp Hgb Conc 29.6 g/dL (32-36); Mean Corpuscular Volume 72.5 fL (81-99); Mean Platelet Vol. 10.2 fl (6.2-12.0); NRBC Flagged by Analyzer 0 % (0-5); Platelet Count 386 K/mm3 (150-450); RBC Distribution Width CV 18.7 % (11.6-14.6); RBC Distribution Width SD 47.2 fl (35.1-43.9); Red Blood Count 4.98 M/mm3 (4.2-5.4); White Blood Count 10.2 K/mm3 (4.4-11.0)
[2024-10-24 16:39] VITALS: BP 149/81; PULSE 66; RESP 17; O2SAT 99
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
[2024-10-24 17:02] LABS: AST(SGOT) 25 U/L (<=31); Alanine Aminotransfer ALT/SGPT 18 U/L (<=34); Albumin, Serum 4.1 g/dL (3.5-5.0); Alkaline Phosphatase 105 U/L (35-104); Anion Gap 13 (5-15); BUN 11 mg/dL (4-19); BUN/Creat Ratio 14.2 RATIO (10-20); Calcium,Total 9.0 mg/dL (7.6-11.0); Carbon Dioxide 22.2 mmol/L (21.0-32.0); Chloride 104 mmol/L (98-108); Estimated Creatinine Clearance 82.76 ml/min (50-250); Globulin 3.5 g/dL (2.2-4.2); Glucose 178 mg/dL (70-99); Lipase 30 U/L (13-75); Potassium 4.1 mmol/L (3.3-5.1)
--- NOTE | 2024-10-24 17:28 | CM.ED ---
Social work Reason for referral: homelessness resources Referral source: Zenia ([facility] Registration) SW was advised that patient recently became homeless and would benefit from resources. SW entered patient's room, introducing self and role at [facility]. Patient confirmed homelessness and accepted the following resources: [facility] list, [employer], [employer], food pantries, [employer], and the [employer] street card. Patient stated being hopeful that some of the resources would be helpful. Patient was in imaging when some of the resources were left, so [employer] card and [employer] were placed with other resources provided. Cora Andersen, FRUIT WASHER, SURGICAL RESIDENT
[2024-10-24 17:34] LABS: Mucous, Urine 0 SEEN /hpf (<or=2+)
[2024-10-24 17:38] LABS: Color, Urine Yellow (Yellow); Glucose, Dipstick Normal (Normal); Ketone-Dipstick Negative (Negative); Leukocyte Esterase-Dipstick 100 /ul (Negative); Nitrite-Dipstick Positive (Negative); Occult Blood-Urine 250 /ul (Negative); Protein-Dipstick 30 mg/dl (Negative); Specific Gravity, Urine 1.015 (1.002-1.030); Urine Bilirubin Dipstick Negative (Negative)
[2024-10-24 18:00] VITALS: BP 137/81; PULSE 79; RESP 15; O2SAT 100
[2024-10-24 18:06] LABS: Red Blood Cells-Urine > 100 SEEN /hpf (0-5); Squamous Epithelial Cells - UA 0-5 SEEN /hpf (5-10)
[2024-10-24 18:51] VITALS: BP 137/81; PULSE 79; RESP 15; TEMP 36.6; O2SAT 100
== END 2024-10-24 19:22 | disposition home or self-care (01) ==
PROVIDERS: Emergency Provider Emergency Medicine; PCP Nurse Practitioner Family; Visit Provider Emergency Medicine
DX: R10.9 Unspecified abdominal pain (principal); F31.9 Bipolar disorder, unspecified; E11.9 Type 2 diabetes mellitus without complications; A08.4 Viral intestinal infection, unspecified; E78.5 Hyperlipidemia, unspecified; I10 Essential (primary) hypertension; Z90.710 Acquired absence of both cervix and uterus; R11.2 Nausea with vomiting, unspecified; Z86.73 Personal history of transient ischemic attack (TIA), and cerebral infarction without residual deficits; Z79.899 Other long term (current) drug therapy; Z79.84 Long term (current) use of oral hypoglycemic drugs; J45.909 Unspecified asthma, uncomplicated; Z79.51 Long term (current) use of inhaled steroids; Z90.49 Acquired absence of other specified parts of digestive tract; Z98.51 Tubal ligation status; F17.290 Nicotine dependence, other tobacco product, uncomplicated
CPT/HCPCS: 74177; 80053; 81001; 83690; 85025; 87631; 96361; 96365; 96375; 99283; Q9967; A4216; J2405

== ENCOUNTER 2024-12-08 11:35 | Emergency (ER) | payer MEDICAID, SELFPAY ==
[2024-12-08 11:36] VITALS: BP 160/87; PULSE 72; RESP 16; TEMP 36.6; O2SAT 99; BMI 39.0
--- NOTE | 2024-12-08 11:55 | VDLE_ITS ---
Reason For Study Reason For Study: Pain RLE RIGHT LEFT GSV is normal. CFV is compressible, spontaneous, phasic, competent, CFV is compressible, spontaneous, phasic, competent and demonstrates normal augmentation. and demonstrates normal augmentation. FV is compressible, spontaneous, phasic, competent and demonstrates normal augmentation. POP V is compressible, spontaneous, phasic, competent and demonstrates normal augmentation. T/P Trunk is compressible. PTV is compressible. RT PerV is compressible. Procedure This is a venous duplex using B-mode, color flow and spectral Doppler. Exam performed in department. A preliminary report was called and/or faxed to Dr. Arellano. VL/Venous Duplex US, Unilateral Interpretation Summary Deep veins of the right lower extremity are patent and compressible segmentally . There is no evidence of right lower extremity deep vein thrombosis. Valvular competence appears intact within the p roximal deep venous system on the right . The right great saphenous vein appears patent and compressible segmentally. The left common femoral vein is patent and compressible . Ordering Physician: Raina Arellano Referring Physician: Desire Gonzales Performed By: Lolita Welch, RDCS, RVT
[2024-12-08] MEDS: Ketorolac 30 MG/ML Syringe IM (12:00)
--- NOTE | 2024-12-08 12:05 | RAD_ITS ---
PROCEDURE: KNEE 4 OR MORE VIEWS 12/08/2024 REASON FOR EXAM: PAIN, FALL TECHNIQUE: Procedure Code: RADKN Modality: DX Procedure: KNEE 4 OR MORE VIEWS Laterality: FINDINGS: No evidence of acute fracture or dislocation. The joint spaces are maintained. No knee joint effusion. RAD/Knee 4 or More Views IMPRESSION: No acute osseous abnormality. Reading Location: [id number]
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
[2024-12-08 13:10] VITALS: BP 142/64; PULSE 72; RESP 16; TEMP 36.6; O2SAT 99
== END 2024-12-08 13:11 | disposition home or self-care (01) ==
PROVIDERS: Emergency Provider Student in an Organized Health Care Education/Training Program; PCP Nurse Practitioner Family; Visit Provider Student in an Organized Health Care Education/Training Program
DX: M25.561 Pain in right knee (principal); E11.9 Type 2 diabetes mellitus without complications; F17.290 Nicotine dependence, other tobacco product, uncomplicated; E78.5 Hyperlipidemia, unspecified; M79.89 Other specified soft tissue disorders; I10 Essential (primary) hypertension; M79.661 Pain in right lower leg
CPT/HCPCS: 73564; 93971; 96372; 99282

== ENCOUNTER 2024-12-28 16:00 | Emergency (ER) | payer MEDICAID, SELFPAY ==
[2024-12-28 16:01] VITALS: BP 155/102; PULSE 74; RESP 18; TEMP 36.4; O2SAT 96; BMI 40.3
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
[2024-12-28 17:57] LABS: Anion Gap 11 (5-15); BUN 10 mg/dL (4-19); BUN/Creat Ratio 17.2 RATIO (10-20); Calcium,Total 8.8 mg/dL (7.6-11.0); Carbon Dioxide 23.3 mmol/L (21.0-32.0); Chloride 104 mmol/L (98-108); Estimated Creatinine Clearance 107.90 ml/min (50-250); Glucose 117 mg/dL (70-99); Potassium 4.0 mmol/L (3.3-5.1)
[2024-12-28 18:01] VITALS: BP 146/85; PULSE 75; RESP 16; O2SAT 100
[2024-12-28 18:07] LABS: Hematocrit 34.4 % (37-47); Hemoglobin 10.2 g/dL (12.0-15.0); Immature Granulocytes Count 0.040 X10^3/uL (0.0-0.0); Mean Corp Hgb Conc 29.7 g/dL (32-36); Mean Corpuscular Volume 74.0 fL (81-99); Mean Platelet Vol. 10.6 fl (6.2-12.0); NRBC Flagged by Analyzer 0 % (0-5); Platelet Count 368 K/mm3 (150-450); RBC Distribution Width CV 18.6 % (11.6-14.6); RBC Distribution Width SD 50.0 fl (35.1-43.9); Red Blood Count 4.65 M/mm3 (4.2-5.4); White Blood Count 8.1 K/mm3 (4.4-11.0)
[2024-12-28 18:27] LABS: Iron 29 ug/dL (50-170)
[2024-12-28 18:59] VITALS: BP 146/88; PULSE 80; RESP 18; TEMP 36.4; O2SAT 100
== END 2024-12-28 19:03 | disposition home or self-care (01) ==
PROVIDERS: Emergency Provider Emergency Medicine; PCP Nurse Practitioner Family; Visit Provider Emergency Medicine
DX: D50.9 Iron deficiency anemia, unspecified (principal); E11.9 Type 2 diabetes mellitus without complications; E78.5 Hyperlipidemia, unspecified; I10 Essential (primary) hypertension; F17.290 Nicotine dependence, other tobacco product, uncomplicated; J45.909 Unspecified asthma, uncomplicated; Z79.84 Long term (current) use of oral hypoglycemic drugs
CPT/HCPCS: 80048; 83540; 85025; 99283; A4216